=== PATIENT | male | born 1950 | race Caucasian/White ===

== ENCOUNTER 2022-10-11 09:16 | Outpatient (OUT) | payer MEDICARE, OTHER, SELFPAY ==
[2022-10-11 09:45] LABS: Estimated Average Glucose 137 mg/dL; Glycohemoglobin A1C 6.4 % (4.5-6.2)
== END 2022-10-11 09:17 | disposition home or self-care (01) ==
LOC: LAB 09:20
PROVIDERS: PCP Internal Medicine; Visit Provider Internal Medicine
DX: E11.65 Type 2 diabetes mellitus with hyperglycemia (principal)
CPT/HCPCS: 36415; 83036

== ENCOUNTER 2023-02-20 09:26 | Outpatient (OUT) | payer MEDICARE, OTHER, SELFPAY ==
[2023-02-20 09:55] LABS: Basophils Percent Auto 0.4 % (0.2-2.0); Eosinophils Absolute Auto 0.5 10^3/uL (0.0-0.7); Eosinophils Percent Auto 4.7 % (0.9-7.0); Hematocrit 45.4 % (42.0-54.0); Hemoglobin 15.4 g/dL (14.0-18.0); Immature Granulocytes Abs Auto 0.03 10^3/uL (0.00-0.03); Immature Granulocytes Pct Auto 0.3 % (0.0-0.5); Lymphocytes Absolute Auto 2.1 10^3/uL (1.2-3.8); Lymphocytes Percent Auto 21.6 % (20.5-60.0); Mean Corpuscular HGB Conc 33.9 g/dL (29.9-35.2); Mean Corpuscular Volume 88.3 fL (80.0-94.0); Mean Platelet Volume 9.4 fL (9.5-13.5); Monocytes Absolute Auto 0.6 10^3/uL (0.3-0.8); Monocytes Percent Auto 6.3 % (1.7-12.0); Neutrophils Absolute Auto 6.4 10^3/uL (1.4-6.5); Neutrophils Percent Auto 66.7 % (43.0-75.0); Platelet Count 295 10^3/uL (150-450); Red Blood Count 5.14 10^6/uL (4.70-6.10); Red Cell Distribution Width 11.8 % (11.0-15.0); White Blood Count 9.7 10^3/uL (4.0-11.0)
[2023-02-20 10:32] LABS: Anion Gap 11.7; BUN Creatinine Ratio 8.7; Calcium 8.8 mg/dL (8.5-10.1); Carbon Dioxide 29.4 mmol/L (21.0-32.0); Chloride 100 mmol/L (98-107); Chol HDL Ratio 5.5; Cholesterol 203 mg/dL (<=200); Estimated GFR (African America >60 (>=60); Estimated GFR (Non-African Ame >60 (>=60); Glucose 162 mg/dL (74-106); HDL Cholesterol 37 mg/dL (40-60); Potassium 4.1 mmol/L (3.5-5.1); Sodium 137 mmol/L (136-145); Triglycerides 258 mg/dL (<=150); VLDL CHOLESTEROL 51.6 mg/dL
[2023-02-20 10:40] LABS: Prostate Specific Antigen Scrn 3.22 ng/mL (<=4.00)
[2023-02-20 10:46] LABS: Microalbumin Urine Random 1.5 mg/dL (<=30.0)
[2023-02-20 11:43] LABS: Estimated Average Glucose 126 mg/dL
== END 2023-02-20 09:27 | disposition home or self-care (01) ==
LOC: LAB 09:28
PROVIDERS: PCP Internal Medicine; Visit Provider Internal Medicine
DX: E11.65 Type 2 diabetes mellitus with hyperglycemia (principal); I10 Essential (primary) hypertension; C67.9 Malignant neoplasm of bladder, unspecified; Z12.5 Encounter for screening for malignant neoplasm of prostate; E78.00 Pure hypercholesterolemia, unspecified
CPT/HCPCS: 36415; 80048; 80061; 82043; 83036; 85025; G0103

== ENCOUNTER 2023-04-11 09:43 | Outpatient (OUT) | payer MEDICARE, OTHER, SELFPAY ==
--- OUTSIDE RECORDS SUMMARY | 2023-04-11 09:48 | XMS_ITS | CCD ---
Author Name Unknown Address [address] [place] [address] Organization [facility] Care Team Providers Care Custody Assistant Name Role Phone MACI, DR RANDALL Neriitting Unavailable MOLINA, DR CAPUTO Attending Unavailable BALL, DR ROCHE Primary Care Unavailable MACI, DR CAPUTO Consulting Unavailable CÉSAR, ALEKSANDAR Consulting Unavailable SANDRA, SHANA GLOVER Consulting Unavaila ble BALL, DR ROCHE Admitting Unavailable BALL, DR ROCHE Attending Unavailable BALL, DR ROCHE Primary Care Unavailable BALL, DR ROCHE Consulting Unavailable BALL, DR ROCHE Admitting Unavailable BALL, DR ROCHE Attending Unavailable BALL, DR ROCHE Primary Care Unavailable BALL, DR ROCHE Consulting Unavailable BALL, DR ROCHE Admitting Unavailable BALL, DR ROCHE Attending Unavailable BALL, DR ROCHE Primary Care Unavailable BALL, DR ROCHE Consulting Unavailable BALL, DR ROCHE Admitting Unavailable BALL, DR ROCHE Attending Unavailable BALL, DR ROCHE Primary Care Unavailable BALL, DR ROCHE Consulting Unavailable BALL, DR ROCHE Primary Care Unavailable ADILSON, ELODIA Admitting Unavailable ADILSON, ELODIA Attending Unavailable ADILSON, ELODIA Consulting Unavailable IKE, HALLEY Consulting Unavailable MOLINA, DR CAPUTO Admitting Unavailable MOLINA, DR CAPUTO Attending Unavailable BALL, DR ROCHE Primary Care Unavailable MOLINA, DR CAPUTO Consulting Unavailable TOHMAS, ANGELITA Consulting Unavailable NEFCY, DANAY Consulting Unavailable MOLINA, DR CAPUTO Admitting Unavailable MOLINA, DR CAPUTO Attending Unavailable BALL, DR ROCHE Primary Care Unavailable BALL, DR ROCHE Referring Unavailable MOLINA, DR CAPUTO Consulting Unavailable Lalit, Antoni Unavailable Randall MOLINA Attending Unavailable MOLINA, Randall Garcia Referring Unavailable MOLINA, Randall Garcia Admitting Unavailable MOLINA, Randall Garcia Attending Unavailable MOLINA, Randall Garcia Attending Unavailable MOLINA, Randall Garcia Attending Unavailable MOLNIA, Randall Garcia Attending Unavailable MOLINA, Randall Garcia Attending Unavailable Allergies Allergy Classification Reported Allergen(s) Allergy Type Date of Onset Reaction(s) Facility (1 source) No Known Medication Allergies; Translations: [No Known Medication Allergies] Propensity to adverse reactions (disorder) [facility] Repository (1 source) patient allergy list reviewed by nurse or physicia Propensity to adverse reactions 8 Comment:Done Neurologix Other Medications Current Medications Medication Drug Class(es) Dates Sig (Normalized) Sig (Original) atorvastatin 10 mg oral tablet (1 source) HMG-CoA Reductase Inhibitor Start: 02-22-2023 take 1 tablet by mouth once daily in the evening Atorvastatin Calcium 10 MG 1 tablet Orally Once a day, in evening for 90 days Feb, Active lisinopril 20 mg oral tablet (5 sources) Angiotensin Converting Enzyme Inhibitor take 1 tablet by mouth once daily Lisinopril 20 MG TAKE 1 TABLET BY MOUTH DAILY Active metFORMIN hydrochloride 1000 mg oral tablet (5 sources) Biguanide take 1 tablet by mouth once daily metFORMIN HCl 1000 MG TAKE 1 TABLET BY MOUTH DAILY Active One Touch Glucometer (4 sources) One Touch Glucom eter Use to test home BS transcutaneous Use to test home BS qd for 365 days Active Problems Active Problems Problem Classification Problem Date Documented Date Episodic/Chronic Biliary tract disease (8 sources) Cholelithiasis without obstruction; Translations: [Calculus of gallbladder without cholecystitis without obstruction] Onset: 02-15-2022 Episodic Cancer of bladder (9 sources) Malignant neoplasm of bladder, unspecified; 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] Onset: 01-11-2018 Chronic Chronic kidney disease (2 sources) Chronic kidney disease; Translations: [Chronic kidney disease, stage 3 unspecified] Onset: 02-07-2018 Chronic obstructive pulmonary disease and bronchiectasis (1 source) Mucopurulent chronic bronchitis; Translations: [Mucopurulent chronic bronchitis] Chronic Diabetes mellitus with complications (13 sources) Type 2 diabetes mellitus with hyperglycemia; Translations: [Type 2 diabetes mellitus] Onset: 04-06-2016 Chronic Diabetes mellitus without complication (2 sources) Type 2 diabetes mellitus without complications; Translations: [TYPE 2 DM WITHOUT COMPLICATIONS] Onset: 10-14-2013 Chronic Diseases of mouth; excluding dental (1 source) Hypertrophy of tongue papillae; Translations: [Hypertrophy of tongue papillae] Episodic Disorders of lipid metabolism (7 sources) Hypercholesterolemia; Translations: [Pure hypercholesterolemia, unspecified] Onset: 12-26-2014 Chronic Essential hypertension (11 sources) Essential (primary) hypertension; Translations: [Essential hypertension] Onset: 11-19-2021 Chronic Hyperplasia of prostate (3 sources) Benign prostatic hyperplasia with lower urinary tract symptoms; Translations: [Benign prostatic hyperplasia without lower urinary tract symptoms] Onset: 11-03-2021 Chronic Melanomas of skin (2 sources) Malignant melanoma of skin of face; Translations: [Malignant melanoma of cheek (external)] Onset: 03-13-2011 Chronic Nutritional deficiencies (2 sources) Vitamin D deficiency, unspecified; Translations: [VITAMIN D DEFICIENCY UNSPECIFIED] Onset: 03-17-2021 Chronic Osteoarthritis (7 sources) Osteoarthritis of right foot; Translations: [Primary osteoarthritis, right ankle and foot] Chronic Other aftercare (2 sources) Other custodial (current) drug therapy; Translations: [OTH PENITENTIARY CURRENT DRUG THERAPY] Onset: 11-17-2021 Episodic Other and unspecified benign neoplasm (5 sources) Adenomatous polyp of colon ; Translations: [Benign neoplasm of descending colon] Episodic Other and unspecified benign neoplasm (1 source) Personal history of colonic polyps; Translations: [Personal history of colonic polyps] Episodic Other and unspecified benign neoplasm (1 source) Benign neoplasm of colon; Translations: [Benign neoplasm of colon] Episodic Other injuries and conditions due to external causes (1 source) History of falling; Translations: [History of falling] Episodic Other non-epithelial cancer of skin (3 sources) Personal history of other malignant neoplasm of skin; Translations: [Basal cell carcinoma of skin, unspecified] Onset: 11-19-2021 Episodic Other nutritional; endocrine; and metabolic disorders (1 source) Obesity, unspecified; Translations: [Obesity, unspecified] Chronic Other screening for suspected conditions (not mental disorders or infectious disease) (4 sources) Encounter for screening for malignant neoplasm of prostate; Translations: [Elevated prostate specific antigen [PSA]] Onset: 06-11-2018 Episodic Other upper respiratory infections (1 source) Chronic maxillary sinusitis; Translations: [Chronic maxillary sinusitis] Onset: 04-06-2016 Chronic Residual codes; unclassified (1 source) Family history of malignant neoplasm of digestive organs; Translations: [Family history of malignant neoplasm of digestive organs] Episodic Screening and history of mental health and substance abuse codes (1 source) Encounter for screening for depression; Translations: [Encounter for screening for depression] Episodic Spondylosis; intervertebral disc disorders; other back problems (1 source) Spondylosis without myelopathy or radiculopathy, cervical region; Translations: [Spondylosis without myelopathy or radiculopathy, cervical region] Onset: 03-19-2014 Chronic Substance-related disorders (11 sources) Nicotine dependence, cigarettes, uncomplicated; Translations: [Tobacco dependence in remission] Onset: 06-16-2015 Chronic Unclassified (1 source) CONTACT W/AND (SUSP) EXPOS COVID-19; Translations: [CONTACT W/AND (SUSP) EXPOS COVID-19] Onset: 11-09-2021 Unclassified (1 source) Encounter for preprocedural respiratory examination; Translations: [Encounter for preprocedural respiratory examination] Onset: 11-08-2013 Unclassified (1 source) Low back pain, unspecified; Translations: [Low back pain, unspecified] Onset: 05-28-2018 Urinary tract infections (1 source) Other chronic cystitis without hematuria; Translations: [OTH CHRONIC CYSTITIS W/O HEMATURIA] Onset: 11-19-2021 Chronic Past or Other Problems Problem Classification Problem Date Documented Da te Episodic/Chronic Abdominal pain (4 sources) Right lower quadrant pain; Translations: [RIGHT LOWER QUADRANT PAIN] Onset: 11-13-2021 Episodic Cancer of bladder (1 source) Personal history of malignant neoplasm of bladder; Translations: [PERSONAL HX MALIG NEOPLASM BLADDER] Onset: 11-19-2021 Episodic Diabetes mellitus with complications (2 sources) Diabetes mellitus with complications; Translations: [Diabetes mellitus without mention of complication, type II or unspecified type, not stated as uncontrolled] Onset: 11-08-2013 Diabetes mellitus without complication (1 source) Hyperglycemia, unspecified; Translations: [Hyperglycemia, unspecified] Onset: 10-14-2013 Episodic Essential hypertension (1 source) Essential hypertension; Translations: [Essential hypertension, benign] Onset: 11-08-2013 Genitourinary symptoms and ill-defined conditions (1 source) Hematuria, unspecified; Translations: [HEMATURIA UNSPECIFIED] Onset: 11-03-2021 Episodic Malaise and fatigue (1 source) Other malaise and fatigue; Translations: [Other malaise and fatigue] Onset: 10-14-2013 Episodic Neoplasms of unspecified nature or uncertain behavior (4 sources) Neoplasm of unspecified behavior of bladder; Translations: [NEOPLASM UNS BEHAVIOR OF BLADDER] Onset: 11-11-2021 Episodic Nonspecific chest pain (2 sources) Other chest pain; Translations: [Chest pain, unspecified] Resolved: 11-16-2020 Episodic Open wounds of extremities (2 sources) Laceration with foreign body of left index finger with damage to nail, subsequent encounter; Translations: [Laceration with foreign body of left index finger with damage to nail, initial encounter] Onset: 06-07-2017 Episodic Other aftercare (1 source) [facility] (current) use of oral hypoglycemic drugs; Translations: [PENITENTIARY USE ORAL HYPOGLYCEMIC DX] Onset: 11-17-2021 Episodic Other and unspecified benign neoplasm (3 sources) Benign neoplasm of descending colon; Translations: [Benign neoplasm of descending colon] Resolved: 09-30-2021 Episodic Other connective tissue disease (1 source) Neuralgia and neuritis, unspecified; Translations: [Neuralgia and neuritis, unspecified] Resolved: 07-31-2019 Episodic Other diseases of kidney and ureters (1 source) Crossing vessel and stricture of ureter without hydronephrosis; Translations: [CROSSING VES STRICT URETER W/O HN] Onset: 11-19-2021 Episodic Other ear and sense organ disorders (2 sources) Impacted cerumen, bilateral; Translations: [Impacted cerumen, bilateral] Resolved: 11-16-2020 Episodic Other ear and sense organ disorders (1 source) Acute reactive otitis externa, bilateral; Translations: [Acute reactive otitis externa, bilateral] Resolved: 09-09-2019 Episodic Other ear and sense organ disorders (1 source) Impacted cerumen; Translations: [Impacted cerumen] Onset: 04-06-2016 Episodic Other infections; including parasitic (1 source) Personal history of other infectious and parasitic diseases; Translations: [PERSONAL HX OTH INF AND PARASITIC DZ] Onset: 11-03-2021 Episodic Other lower respiratory disease (1 source) Cough; Translations: [Cough] Onset: 10-14-2015 Episodic Other lower respiratory disease (1 source) Shortness of breath; Translations: [Shortness of breath] Resolved: 09-09-2019 Episodic Other nervous system disorders (1 source) Paresthesia of skin; Translations: [Paresthesia of skin] Onset: 03-19-2014 Episodic Other nutritional; endocrine; and metabolic disorders (1 source) Overweight; Translations: [Overweight] Resolved: 02-15-2022 Episodic Residual codes; unclassified (1 source) Tobacco use; Translations: [Tobacco use] Onset: 06-16-2015 Episodic Spondylosis; intervertebral disc disorders; other back problems (1 source) Radiculopathy, cervical region; Translations: [Radiculopathy, cervical region] Onset: 04-11-2014 Episodic Sprains and strains (2 sources) Strain of muscle, fascia and tendon of lower back, subsequent encounter; Translations: [Strain of muscle, fascia and tendon of lower back, initial encounter] Onset: 05-28-2018 Episodic Unclassified (1 source) Osteoarthrosis, unspecified whether generalized or localized, lower leg; Translations: [Osteoarthrosis, unspecified whether generalized or localized, lower leg] Onset: 11-08-2013 Unclassified (1 source) Bacterial infection, unspecified, in conditions classified elsewhere and of unspecified site; Translations: [Bacterial infection, unspecified, in conditions classified elsewhere and of unspecified site] Onset: 04-06-2016 Unclassified (1 source) Melanoma of skin, site unspecified; Translations: [Melanoma of skin, site unspecified] Unclassified (1 source) Nondependent tobacco use disorder; Translations: [Nondependent tobacco use disorder] Onset: 11-08-2013 Unclassified (1 source) Hypertrophy (benign) of prostate without urinary obstruction and other lower urinary tract symptoms [LUTS]; Translations: [Hypertrophy (benign) of prostate without urinary obstruction and other lower urinary tract symptoms [LUTS]] Unclassified (1 source) Malignant neoplasm of bladder, part unspecified; Translations: [Malignant neoplasm of bladder, part unspecified] Onset: 02-07-2018 Unclassified (1 source) Other specified pre-operative examination; Translations: [Other specified pre-operative examination] Onset: 11-08-2013 Unclassified (1 source) Special screening for malignant neoplasm of prostate; Translations: [Special screening for malignant neoplasm of prostate] Onset: 10-14-2013 Unclassified (1 source) Body mass index 28.0-28.9, adult; Translations: [Body mass index 28.0-28.9, adult] Onset: 06-16-2015 Unclassified (1 source) Body mass index 29.0-29.9, adult; Translations: [Body mass index 29.0-29.9, adult] Onset: 06-16-2015 Unclassified (1 source) Long-term (current) use of other medications; Translations: [Long-term (current) use of other medications] Onset: 01-17-2017 Results Test Name Value Interpretation Reference Range Facility Reminderson 10-18-2022 Reminders - From: Sammie Padilla To: [facility] - Recalls Molina; Cc: Sammie Padilla; Sent: 03/16/2022 08:25:43 EST Show up: 04/13/2022 08:25:00 EST Subject: Cysto/FISH/cytol Due Date/Time: 05/30/2022 08:25:00 EDT Reminder/Recall Patient is due in May 2022 for 6 month cysto/fish/cytol (bt ck) Patient scheduled for 05/11/22. He will be due in Nov 2022 for 6 month. Patient due in May 2023. New thread Normal [facility] UroVysion Fish and Urine Cyt o ([facility])on 05-25-2022 UVFISH & UC Diagnosis Info Invalid Interpretation Code [facility] Comment on above: Result Comment: A:Ur ine,Urine:Voided Diagnosis Summary - No evidence of high grade urothelial carcinoma identified. Adequate cellularity for evaluation. Diagnosis Summary - The UroVysion FISH study detected normal copy numbers for chromosomes 3, 7, 17, and 9p21. 179 cells were analyzed in this evaluation. No evidence of aneuploidy for chromosomes 3, 7, or 17 or deletion of the 9p21 locus was found in cells present in this specimen. This test does not rule out the possibility of a low grade non-invasive papillary urothelial carcinoma. These findings should be correlated with cytology and cystoscopy results.* Microscopic Notes - Microscopic Notes - Abnormal cells 9p21 deletions: Abnormal cells aneploid events: Total cells analyzed: 179 Hematuria: Gross Description Site ID:A color Yellow fixative Alcohol Received 100 mls of clear yellow fluid with the patient's name and, Urine on the vial. Electronically signed by : on: 05/25/2022 17:56:29 Performed By: #### 1 [id number] ####[facility] [address] [place] [address] Reminderson 05-19-2022 Reminders - From: Sammie Padilla To: EU - Recalls Molina; Cc: Sammie Padilla; Sent: 05/19/2022 10:10:20 EST Show up: 04/13/2023 10:10:00 EST Subject: Cysto/fish/cytol, 1 yr Due Date/Time: 05/01/2023 10:10:00 EST Reminder/Recall Pt is due in May 2023 for 1 year cysto/fish/cytol (bt ck), PSA/AGUILA Normal [facility] Consent for Procedure/Surger yon 05-18-2022 Consent for Procedure/Surgery [id number] D:127 Normal [facility] Patient Educationon 05-19-19 23 Patient Education Oncology Cancer Screening for Men A cancer screening is a test or exam that checks for cancer. Your health care provider will recommend specific cancer screenings based on your age, personal history, and family history of cancer. Work with your health care provider to create a cancer screening schedule that protects your health. Why is cancer screening done? Cancer screening is done to look for cancer in the very early stages, before it spreads and becomes harder to treat and before you would start to notice symptoms. Finding cancer early improves the chances of successful treatment. It may save your life. Who should be screened for cancer? All men should be screened for colorectal cancer and skin cancer. Your health care provider may recommend screenings for other types of cancer if: ? You had cancer before. ? You have a family member with cancer. ? You have abnormal genes that could increase the risk of cancer. ? You have risk factors for certain cancers, such as smoking. When you should be screened for cancer depends on: ? Your age. ? Your medical history and your family's medical history. ? Certain lifestyle factors, such as smoking. ? Environmental exposure, such as to asbestos. What are some common cancer screenings? Lung cancer Lung cancer screening is done with a CT scan that looks for abnormal cells in the lungs. Discuss lung cancer screening with your health care provider if you are 55?74 years old and if any of the following apply to you: ? You currently smoke. ? You used to smoke heavily. ? You have a smoking history of 1 pack a day for 30 years or 2 packs a day for 15 years. ? You have quit smoking within the past 15 years. If you smoke heavily or if you used to smoke, you may need to be screened every year. Prostate cancer Prostate cancer screening is done with blood tests and an exam in which a health care provider uses a gloved finger to check prostate size (digital rectal exam). You may need to be screened for prostate cancer if: ? You have risk factors of prostate cancer, such as being or having a close family member with prostate cancer. ? You have inherited gene changes or a genetic condition, including BRCA1 or BRCA2 gene mutations or Jones syndrome. ? You have symptoms of prostate cancer, such as problems urinating or erectile dysfunction. Prostate cancer screening for men with average risk may start at age 50. Men with risk factors may need to be screened earlier at age 40?45. Once you have been screened for prostate cancer, future screening may be recommended based on the results of your blood tests. Colorectal cancer All adults should have screening for colorectal cancer starting at age 50 and continuing until age 75. Your health care provider may recommend screening at age 45. You will have tests every 1?10 years, depending on your results and the type of screening test. If you have a family history of colon or rectal cancer or other risk factors, you may need to start having screenings earlier. Talk with your health care provider about which screening test is right for you and how often you should be screened. Colorectal cancer screening looks for cancer or for growths called polyps that often form before cancer starts. Tests to look for cancer or polyps include: ? Colonoscopy or flexible sigmoidoscopy. For these procedures, a flexible tube with a small camera is inserted into the rectum. ? CT colonography. This test uses X-rays and a contrast dye to check the colon for polyps. If a polyp is found, you may need to have a colonoscopy so the polyp can be located and removed. Tests to look for cancer in the stool (feces) include: ? Guaiac-based fecal occult blood test (FOBT). This test detects blood in stool. It can be done at home with a kit. ? Fecal immunochemical test (FIT). This test detects blood in stool. For this test, you will need to collect stool samples at home. ? Stool DNA test. This test looks for blood in stool and any changes in DNA that can lead to colon cancer. For this test, you will need to collect a stool sample at home and send it to a lab. Skin cancer Skin cancer screening is done by checking the skin for unusual moles or spots and any changes in existing moles. Your health care provider should check your skin for signs of skin cancer at every physical exam. You should check your skin every month and tell your health care provider right away if anything looks unusual. Men with a akpxjy-ttaw-fpfgbc risk for skin cancer may want to see a operations staff specialist security (is analyst) for an annual body check. Where to find more information ? [employer] [place]: https://www.cancer.gov/ about-cancer/screening ? Centers for Disease Control and Prevention: https://www.cdc.gov/can cer/dcpc/prevention/scr eening.htm ? [employer]: https://www.cancer.org/ latest-news/4-cancer-sc bexnmoc-vkyzh-tdj-men.h tml Contact a health care (more content not included)... Normal [facility] UroVysion Fish and Urine Cyt o ( Labs)on 05-18-2022 [facility] Method of Extraction Voided Normal [facility] Comment on above: Performed By: #### 1 [id number] ####[facility] [address] [place] [address] [facility] Number of Jars 1 Invalid Interpretation Code [facility] Comment on above: Performed By: #### 1 [id number] ####[facility] [address] [place] [address] [facility] Specimen Urine Normal [facility] Comment on above: Performed By: #### 1 [id number] ####[facility] [address] [place] [address] [facility] Type of Service Technical Only Normal [facility] Comment on above: Performed By: #### 1 [id number] ####[facility] [address] [place] [address] Urology Office/Clinic Noteon 05-18-2022 Urology Office/Clinic Note Chief Complaint Cysto HPI Staff Cysto ABX not taken History of Present Illness Tests reviewed: OV note. I have reviewed the previous health record information and history for this patient from Dr. Molina. I have reviewed and verified the staff HPI to be accurate for this encounter. There have been no associated fever, chills, flank pain, or blood in the urine. Denies any urinary infections since last encounter. Review of Systems PHQ Score Initial Depression Screen Score: 0 ROS - Provider Constitutional: denies weight loss, denies hot flashes. Eyes: denies eye problems. Gastrointestinal: denies nausea, denies vomiting. Cardiovascular: denies chest pain or angina. Integumentary: no dryness Musculoskeletal: denies musculoskeletal symptoms. ENMT: denies otolaryngeal symptoms. Respiratory: no shortness of breath. Heme/Lymph: denies easy bleeding tendency, denies easy bruising tendency. Psychiatric: no confusion, no anxiety. Genitourinary: See HPI. Physical Exam Vitals & Measurements HR: 73(Peripheral) BP: 146/74 HT: 69 in HT: 175 cm WT: 88.0 kg WT: 193.6 lb BMI: 28.73 General Appearance: alert, no distress, well nourished, well developed male. Genitourinary: normal scrotum, normal testes, normal urethra, normal epididymis, normal vas deferens/spermatic cord. Flank Pain: none. Bladder: nonpalpable. Procedure Operative Information Anesthesia Type: Local Procedure: Local Cystoscopy Complications: None Surgical risks, benefits, details of the procedure have been explained to the patient. Full informed consent has been obtained. Intraoperative Information Prepped: Patient is brought back to the endoscopy suite. Patient is placed in supine position. Patient prepped in the usual fashion with Betadine solution. 2% Xylocaine Jelly is placed per Urethra. After waiting several minutes, the Cystoscope is introduced. The Urethra is: Normal The Prostatic Urethra is: _Open. The Bladder: _No tumors, stones, lesion. Trabeculated: Mild (1) The Ureteral orifices: Show efflux of clear urine. Specimens Removed: Voided specimen sent for FISH and Cytology test Removal: Cystoscope is removed. The patient tolerated it well. Postoperative Information Patient is discharged home with antibiotic coverage. Follow up arranged. Assessment/Plan 1. Hx of bladder cancer (Z85.51: Personal history of malignant neoplasm of bladder) S/p TURBT 11/11/21 & Rt. stent placement. TURBT 01/2018. Patient was originally dx with low grade noninvasive cancer in 2017. First recurrence was in 11/2019. S/p Evolve Laser of bladder tumor. Cysto done 10/27/21 showed adjacent to the right UO is a 1 cm papillary TCC appearing lesion. Lateral to that is a 0.5 cm papillary TCC appearing lesions. Path showed chronic cystitis glandularis, negative for recurrence. Pt went to the ER on 11/13/[address] scan shows stent in place and mild right hydro, perinephric edema. Pt had IO cysto to check for bladder tumor recurrence without complications today. Pt took prophylactic abx prior to procedure. Will send voided specimen for FISH/cytol and call pt if positive. Cysto today was negative for recurrence. Follow up 1 year cysto/FISH/cytol/bt ck or sooner if needed. Pt understands and agrees with plan. 2. Enlarged prostate with urinary obstruction (N40.1: Benign prostatic hyperplasia with lower urinary tract symptoms) S/p TURP 02/2018. Most recent PSA 1.77 done 11/01/21, previously 1.82 done in 2019. Follow-up With When Contact Information MACI BLAKE, Randall Garcia, [facility] [address], [place] [address]- Additional Instructions: 1 year cysto/FISH/cytol/bt ck Patient Education Cancer Screening for Men I, Irma Vance, personally scribed for Dr. Molina on 05/18/2022 08:15:50. . Documentation recorded by the scribe, Irma Vance, accurately reflects the services(s) I performed and decisions made by me. Authenticated by Dr. Molina on 05/18/2022 08:16:46. Problem List/Past Medical History Ongoing Bladder cancer BMI 28.0-28.9,adult Diabetes Enlarged prostate with urinary obstruction History of skin cancer History of urinary retention Hx of bladder cancer Hx of hepatitis Hypertension Smoker Historical No qualifying data Procedure/Surgical History Cystoscopy (05/18/2022), Cystoscopy (10/27/2021), Cystoscopy (07/28/2021), Cystoscopy (04/21/2021), Cystoscopy (01/20/2021), Cystoscopy (10/14/2020), Cystoscopy (06/17/2020), Cystoscopy (03/03/2020), Ablation of neoplasm of urinary bladder using laser (11/19/2019), Cystoscope (11/05/2019), Cystoscopy (07/30/2019), Cystoscope (02/20/2019), Cystoscopy (11/27/2018), Cystoscopy (08/21/2018), TURP - Transurethral resection of prostate (02/15/2018), Cystoscopy and transurethral resection of bladder tumour (01/25/2018), Urodynamics (01/16/2018), Colonoscopy, Knee replacement. Medications lisinopril (more content not included)... Normal [facility] Comment on above: Result Comment: Elec tronically Signed By: Randall MOLINA MD R\.br\Date and Time Signed: 05/18/22 08:16 EST\.br\Electronically Co-Signed By: Irma Vance\.br\Date and Time Co-Signed: 05/18/22 08:16 EST GLYCOHEMOGLOBIN A1Con 2021 ADA RECOMMENDATION SEE BELOW Normal [facility] Comment on above: Result Comment: ADA RECOMMENDED LIMIT 4.0 - 6.0 ADA THERAPEUTIC TARGET < 7.0 ACTION SUGGESTED > 7.0 Performed By: #### A 1C #### [facility] [address] [address] [address] Gil Smith Glucose [Mass/Vol] 137 mg/dL Normal [facility] Comment on above: Performed By: #### A 1C #### [facility] [address] [address] [address] Gil Smith HbA1c (Bld) [Mass fraction] 6.4 % Critically high 4.5-6.2 [facility] Comment on above: Performed By: #### A 1C #### [facility] [address] [address] [address] Gil Smith MICROALBUMIN, RAND URon - mALB <1.3 Normal <=30.[address] [facility] Comment on above: Performed By: #### B #### [facility] [address] [place] [address] Dr. Gil Smith Coding Summary.on 11-24-2021 Coding Summary. [id number] Gh0 bWw+PGhlYWQ+HN8DSQDxV35 ubJEhqQ7CK9bKQX2FDXIMZA CCIH0XRM4dhRK5XImvR8Ads iAv KjmdiSDpOF68QTj5SLQ2nBn bLCidjN9dwPNcD6x8HdEqSH 75hA87ISnrGQIhQqI8KkIxe jsgbWFy C1jxWnPpcLCjLov+PHRhYmx lIHdpZHRoPScxMDAlJyBzdH cmCM1cMd0tXHYtWCWqiKvke HNlOiBj f3tbSOLaTAhpOQ3fmCxzG8H wsLW3ARFjp2t6Pe36zXH+PH LvSGD0sGmfYKjbr936RkDwc 0spETW5 hABhVViwFCR4I55ig9M8ROU oTOMhQZR3bPQ6yA4jsYeuwv ovE2ZzlDXaLdC9GEA2kLSwb E7oqQqo pzrfhV4vLyq+C64DHO5GWZQ IQQ4ZXnk8B8GzWkpxtXG+PC 66EPIgCV43vQPyfGKrg2lpo Sl0XuCm BVUcZNM0qTllLJpfk9QeLKM iG40elAMnk0Y3FOGjgHguxE VzUmEegWB6kW3fXZdemdkjj 2hvdzsn Omqnm0rkpd38dB41V83zYKn nWDBsBRF7OQNhYZBvyRpdgq 6veU7cBi0+CZjub8svu1uae Zo4SdAi LKEkueHrjAcuFSD3o2SkQg1 2Z5TfeVmho5KmZfo8ec40dM Ndf2Y7rKU3FUuyRCEugJ5sL WxlZnQ6 MDZxYcLhdS34xTYiZRglDs1 laSyupEkfXZ8lGHDekhabLR CuvS8zEYVucWCbnDbtXM2lS TBpbjtm s685HkOcAQO8OVVzxFNaK3Y csC0rLmEnEAOwJOShN9JbhM HxINcuZ282WXnkTzY3UPXae mXkG9Et EIPksLtdVuK9d1I6Nt6Ad6Z qrpbtEXV3NWifATR4ZwA4Iw CiIqC2I7TlIoe0YXNrdFloP W2nT0Kz NJTqmgspghixePT6UFRhZZN hsK13cTQsXVcxEh1te6B1e7 96CERlMMThfS66Pi2etIviP TBwdCBU aM0ecxrqg6luflrzAjBiMNT yLOw5JXp1GYGsgCenGaSoOS H1EeJ3NFE8rOEtbE1gtOwkr keqmT3l Oyc+G39ilU9sIYA2QQK9jsb cWFTjjpCrAV79QU07X2VaYv wvdGFibGU+PGRpdiBzdHlsZ E1nNsMk v5cnm4JmBJpbR9YiCWNpDEi xFoe5ZRMpZEL7pLZ9aP7xDN LsKMlzt4Q7eBL8Q7IzhyKfx p7at7oy SXKvCTrvD23uiCEui8A2FEQ taKO8FHJqfSyjAkAnyW22Cc c+FIBosJvkl5PwXqokr0ggs 4brxWo3 JbMbIMJvhoMvhVjiDRP2p0A qXd24Z65mXPqoEIToSVAuLI YjOSAypLnmzt9jfT3jBp0+P GNvbCB3 wSI6xG7yUBZaQtG1CQujZ97 0ChMchNPgSnznc3bfb3okbI a5FpVySWKatyBoyLrmJWD5l 4DlGc98 I62fZYelTQDdSKQcBLIaDFK dyXzewg8erB1wYj7+PC9jb2 pabh63mU40qWZ+PPDkJAS1r WxlPSdw OOSthB3nRDusWvV9MKBxVqT klE42sTGbCKmhHu6yhEncaA zkWH0mKYWowmumj536OnLth 2xkIDEw tENeKWmoEFY5R29jj8R9INA kBXRgTMB3aTZ8pW4grHdkto ogbGVmdDsgdmVydGljYWwtY OckS172 IHRvcDsnPlBhdGllbnQgTmF dDZn3Q8OcWxx0VFMgkNcdHG 1ftCSoLOkdNm2kkSecmWpfZ F7wGPUp dcfwq133RkAub8vrTEFzhFT bCLfjRFN4T43xp1Y0BJTyPN IbUCC3xKD4aQ2xnJhenftsn GVmdDsg lkZfdIlbCAjiKMmjY851ILD bgFraNaZbqvEoCQMtrXP5IQ 82FJ37hRNkt7A5kWP0S6YgM GRpbmct iihbdAD8NVWvBFWchE96Vj2 mtJhtFw9fVQGfRXG2GGPemE DaK5SeyV6jVjSoLHYaVJAzG 3RleHQt SRwmQ966ENqlOrL7HRDysbO eF7EtTTZqoCuvUkF4k8G9Gi 7SV7G1ZI10IQ84zLLbg1V5w FB7M2Nc EOWgrewmszdvqTY2GIOwVJW ljC61It0vzLccOd3hVEAnXC W8VZAomSUgX7FofX1lExElO DAwMDAw X4FydHEqAYfgV790FVlnIbU 2WCBnmhVlN9KtRMBysJfpRv T0t9Q7Kh1CBCp3YP87GR95n TZbg6A8 mDE1O0FfDMGifsscdvxyvZR 6GMThJQRayU83Cf3bzKvaIz 9oIGYlMAW1IPEhqOFzZ7Qyi R4wZeVk ORBnRLXxK0OuaNQoJEecI81 7AUkkHqV5TDOdnrHjN5OzRW XxgPicNyB4g8Z4Zh5CDXFmL U55ETB2 lMB4IP48UJ18R7ZwEaakfSY ibGU+PHRhYmxlIHdpZHRoPS wlOGZhBdEsrWivQS3sMm1vT GVyLWNv tDdiyDHbMeVtj5giUPToMKf tWB0lxDmeI1BhnZV3WHJkd0 r4Kj20O16bR9XeiII+PGNvb OJ7mIQ7 iV2aRrGeUyF7ZMvhL187KlM hmQDwGfoum2pcb3nklSn2Be Y1GQUiswFvdItcUTT9o6SaF z73V76b IHdpZHRoPSIxNSUiIHZhbGl wvv1kvP1uHb3+NKXtlAZ0aM B1fC3fSjPvAkL2WJeuF451Z nRvcCIv Othxt2jte7gsoIg4NrEjOLG vtoKasFbyICH6p8ClUr74X1 MdoQccr7VyQic6zg45cDOjk 1G5sKL6 D9IgRJTwroapdDGfuUexTR3 iIXChucweZSDexW8dNEKuH6 q5BuCtDyH7ZHdvV6GndxU4W DEwcHQg QGwzMEB7J40mn9Y3DWTpHNL yOTB4cCN9gN5vwIsqrtnkmX VmdDsgdmVydGljYWwtYWxpZ 246IHRv cFhqNKLgjE1fEZHnpUKqbNa tNT8gGQEilwjfSgvDFqUXCv mrT5FGQSs4D2ZiXyc0BZBrf GfnXC4r jGZjXJgfQz9joYlwzQdzYL7 aIUOphdjgYLCxlZ2cJIWusL EnaOuqBM4sUEIuxwhtk109R iAxMHB0 LAUahNLqK0NvtK6aFuStGAT vVZBhM0KxzHBaNYsbS574IG zwRlE6RMZyvcIiD2ZmFPJrj WduOiB0 z2C1Ue1cDd1fFQ4dBBZcTQ2 1WG13vEZgh0O7uKS0X8TwBH TmyhrepsrjrBN8WPRwBQBwf B02jNZt KSjkWk4ah2R1b461OMVuLXS zxY65Aw2rgWdlYWCyiEWGbN 1ssocry7rykcwbGpQuWZDqU Wk0KLr8 KQJpxOcnAcIrJFZ4VvU3WNA 8tIZugD1dwRubtjdxzC2vEv c+RaGtDLKslsD9U7JtBgz9E CBzdHls PJ0wbSIoGZheAr3gmXujsNr vPC8aUHYtnlxzVAHijP0bMU UlkWDuuWgcFB3zVRWjyxnbj 250OiAx HDR1OIItxITqK5ZasO3mGtL aFGHmXWShQ5KzrPTrTVwiT6 35BJcsPzE8KFNgooMbW6CvL WFsaWdu RkC0b3X1Em0IQEetSH81FI3 5vEFyr3N5zSN0F3JbVNSpgk btlfhokZX7QYXtGTIhvL80c GFkZGlu Af9vc6L9q387OUPhUXBctE0 2Yd8oeYucTPTncKLCnK5kqg xuh0aeclmtKwMzSSRrJWq2T Pv7EZLu jNshGhLgFOA3ZbC2RUC3aEF lyF9tdVfiyjmzmH6zMla+T3 K6tHG8iRMoaUkmhQC+PC90c i01X5Ku MfgvUaa3CPSzWPC5aOT1aQ0 tYOFxUTqrv1M3rMO2C7Jedi Egkj6hx6qiOJGeWMuwK65ey YKsu3N0 UGRoiSJ9IDVawCzcNrYntZ9 3Oyc+KOSlcGdvn9YhXbumv6 tfp2lqkXz0EeLnFZPfsmPne WduPSJ0 e2YcEj34G01nRPiwDCEnCXP zIGMxWACrzZhgmo6nlJ1qVl 8+STKcqOQ4eRL0zP2bPwHaZ vJ7YRld A823VwDvgOOgYifgn1vro9i laZh7ZmVgVOZwnnNflPsaXY N4w3XnIw21L9OawMrij0IiT ra3jx57 cYLdo2R8xXO0T7IcWQKffrw atVAoqNonZC0qJZSwaqpoVD TduA8tQUFvM7b1DzUqXeH5Q UjaP1Yy ytM7EGHpaBDfUBJigPBPsU2 bezqgt3vopbtjTzAeQDUxPT g0WAo3YHFgbTgkFfOsSHS5J yD4CDZ9 tDEwkH9drGmxhjwscQ7tJkb +WBo6n8slfXJkQA9drDT7SO 17ZR48pODwz3J5eCY9L5RrP GRpbmct cfqkjSM6IHFgBEKjpY93Sq8 xyAkxYq5jJEQhIWL9UIAqiM CoY0VtvP6qJlQeGZXiFATjN 3RleHQt CBrgV956PMviXdI1LJWxspB uW5NwGQAnqTjbQwM0h8L3Gp 6TAF96NZ93ZC73rZHdo0Z9m CK8S9Bu TEIuwldoojrjvHG1CKSdUTP wwI59Du5atUhlFd6hVSOoEQ A9RWCcmPMsD5PdzY8eXoEtN DAwMDAw H7MbiTLoWIzuM947LTgfCnJ 5LPMbfiAuU6HgCCPuwIdmXn R0e2O8Aq6LVe07LS51GA09l GBgr1H3 gRI1I5CdMMXfzwbdbimreKW 6WJCkPXHfaB87Ca9hnJlpEz 3iERXkWVY2FWUifYBoS5Idd H3fFbFm UBKsXUQcI9GqzOPjXSiuP77 7TRzsKpU5FOBltkUgB5OsER AjsGxgGvE2l8K7Uu4TRNixi rs7X0Da PjwvdHI+FD08IYDtYS73zUI shFKcs8zqtHr3XpGsEDLvIS K5xIwnBBxzp4SyOJHuO39ks MXus4A4 IGNv (more content not included)... Normal [facility] Consent for Procedure/Surger yon 11-23-2021 Consent for Procedure/Surgery [id number] D:127 [facility] Consent for Treatmenton 11-11 Consent for Treatment [id number] D:127 [facility] IntraOperative Documentson 0 11-23-2021 IntraOperative Documents [id number] D:127 [facility] Main OR Intraoperative Recor don 11-23-2021 Main OR Intraoperative Record IntraOp Document Type FTURO Summary Primary Physician: Randall MOLINA MD Finalized Date/Time: 11/23/21 08:31:34 Pt. Name: ELI GARRISON/Sex: 1950 Male Med Rec #: [id number] Physician: Randall MOLINA MD Financial #: [id number] Pt. Type: O Room/Bed: / Admit/Disch: 11/23/21 07:22:34 - Institution: Case Times FTURO Entry 1 Patient Times In Room 11/23/21 08:16:00 Out Room 11/23/21 08:28:00 Procedure Times Start 11/23/21 08:25:00 Stop 11/23/21 08:26:00 Anesthesia Times Last Modified By: Sherlyn Coon RN 11/23/21 08:29:39 Case Attendance FTURO Entry 1 Entry 2 Entry 3 Case Attendee MACI BLAKE, Randall Coon RN, Sherlyn Cortes CST, Pia Grimes Role Performed Surgeon - Primary Co Chairman - Primary Scrub - Primary Time In 11/23/21 08:16:00 11/23/21 08:16:00 11/23/21 08:16:00 Time Out 11/23/21 08:28:00 11/23/21 08:28:00 11/23/21 08:28:00 Procedure CYSTOSCOPY LOCAL WITH CYSTOSCOPY LOCAL WITH CYSTOSCOPY LOCAL WITH STENT REMOVAL(Right) STENT REMOVAL(Right) STENT REMOVAL(Right) Comments PRECEPTING Last Modified By: Sherlyn Coon RN, RN, Sherlyn Remy RN 11/23/21 08:29:40 11/23/21 08:29:40 11/23/21 08:29:40 Entry 4 Case Attendee Radha Clemente Role Performed Scrub - Primary Time In 11/23/21 08:16:00 Time Out 11/23/21 08:28:00 Procedure CYSTOSCOPY LOCAL WITH STENT REMOVAL(Right) Comments ORIENTING Last Modified By: Sherlyn Coon RN 11/23/21 08:29:40 Surgical Procedures FTURO Entry 1 Procedure Description Procedure CYSTOSCOPY LOCAL WITH Modifiers Right STENT REMOVAL Surgeon Description CYSTOSCOPY LOCAL WITH RIGHT STENT REMOVAL Primary Procedure Yes Primary Surgeon Randall MOLINA MD Start 11/23/21 08:25:00 Stop 11/23/21 08:26:00 Anesthesia Type Local Surgical Service Urology Wound Class 2 - Clean-Contaminated Last Modified By: Sherlyn Coon RN 11/23/21 08:29:44 General Case Data FTURO Pre-Care Text: Classifies surgical wound, implements aseptic technique, initiates traffic control Entry 1 Case Information OR URO 1 FT Case Level None Wound Class 2 - Clean-Contaminated Specialty Urology Preop Diagnosis STATUS POST RIGHT STENT Postop Same As Preop Yes PLACEMENT RIGHT STENT REMOVAL Postop Diagnosis STATUS POST RIGHT STENT Outcomes Met? Yes PLACEMENT RIGHT STENT REMOVAL Last Modified By: Sherlyn Coon RN 11/23/21 08:25:29 Post-Care Text: The patient is free from signs and symptoms of infection EU IntraOp - FTURO Pre-Care Text: Implements protective measures prior to operative or invasive procedure, confirms identity before the operative or invasive procedure, verifies operative procedure, surgical site, and laterality Entry 1 EU Perioperative Protocols Procedure(s) CYSTOSCOPY LOCAL WITH Patient Identity Birthday, ID Band STENT REMOVAL(Right) Verified (select at Check, Patient least 2): Participation Consents / H and P HandP, Surgery/Procedure Operative Site Present Verified Consent Marking Verified Surgical Site Yes Laterality Verified Yes Verified Procedure Verified Yes Correct Patient Yes Position Verified Availability Equipment, Medication Time Out Randall MOLINA MD, Verified (If Participants Sherlyn Coon RN, Applicable) Sophia AUGUST, Chyna Mcclendon Jennifer E Time Out Complete 11/23/21 08:20:00 Allergies Reviewed? Yes Allergies Reviewed Self/Patient With Body Position Supine Prep Area PENIS Prep Agents Betadine Solution Skin. Condition Dry, Warm, Unable to Description UNABLE TO VISUALIZE DUE Visualize TO PATIENT PARTIALLY CLOTHED Additional None Specimens Collected Vitals - EU Blood Pressure 159/90 Pulse 58 bpm Respirations 16 br/min SPO2 EBL 0 IandO - EU Total Intake 0 mL Total Output 0 mL Outcomes Met? Yes Last Modified By: Sherlyn Coon RN 11/23/21 08:31:27 Post-Care Text: The patient is free from signs and symptoms of injury caused by extraneous objects Sign Out FTURO Entry 1 Before Patient Leaves OR Nurse verbally Yes Nurse verbally Yes confirms with the confirms with the team the name of team that the procedure(s) instrument, sponge, recorded and needle counts are correct (or N/A) Nurse verbally n/a Nurse verbally Yes confirms with the confirms with the team how the team whether there specimen is labeled are any equipment (including patient problems to be name), if applicable addressed Sign Out Complete 11/23/21 08:26:00 Last Modified By: Sherlyn Coon RN 11/23/21 08:26:21 Case Comments Finalized By: Sherlyn Coon RN Document Signatures Signed By: Sherlyn Coon RN 11/23/21 08:31 Normal [facility] Main OR Preoperative Recordo n 11-23-2021 Main OR Preoperative Record Holding Area Document Type FTURO Summary Primary Physician: Randall MOLINA MD Finalized Date/Time: 11/23/21 07:55:50 Pt. Name: ELI GARRISON /Sex: 1950 Male Med Rec #: [id number] Physician: Randall MOLINA MD Financial #: [id number] Pt. Type: O Room/Bed: / Admit/Disch: 11/23/21 07:22:34 - Institution: Case Times Holding FTURO Pre-Care Text: Verifies consent for planned procedure, identifies individual values and wishes concerning care, includes family members in perioperative teaching Secures patient's records' belongings, and valuables, maintains patient's dignity and privacy, and maintains patient confidentiality Entry 1 In Holding 11/23/21 07:47:00 Outcomes Met? Yes Last Modified By: MEDARDO Bland RN, Ruthann 11/23/21 07:53:58 Post-Care Text: The patient participates in decisions affecting his or her perioperative plan of care The patient's right to privacy is maintained Surgery Checklist FTURO Entry 1 Patient Birthday, ID Band Procedure History and Physical, Identification: Check, Patient Verification: Surgical Consent, With Participation Patient NPO after Midnight: n/a Personal Items clothes Comment: Limitations: none Complaints of Pain: No Skin Integrity Intact Vitals - EU Blood Pressure 159/90 Pulse 58 bpm Respirations 16 br/min SPO2 Additional None RN Reviewed Yes Specimens Collected Last Modified By: MEDARDO Bland RN, Ruthann 11/23/21 07:55:34 General Comments: temp 36.5 Finalized By: MEDARDO Bland RN, Ruthann Document Signatures Signed By: MEDARDO Bland RN, Ruthann 11/23/21 07:55 Normal [facility] Operative Reporton 2 Operative Report Patient: DASH GARRISON Age: 71 years Sex: Male : 1950 Associated Diagnoses: None Author: Randall MOLINA MD Procedure Operative Information Details: Date/ Time: 11/23/2021 08:29:00. Pre-Op Dx: Foreign Body in Bladder - T19.1XXA. Post-Op Dx: Same. Anesthesia Type: Local. Procedure: Local Cystoscopy with Stent Removal. Complications: None. Risks/Benefits/Informed Consent: Surgical risks, benefits, details of the procedure have been explained to the patient, Full informed consent has been obtained. Intraoperative Information Prepped: The patient was placed in supine position, The patient was prepped with the Betadine solution. Anesthesia: 2% Xylocaine Jelly per urethra. Procedure: Cystoscopy and Right Stent Removal, The flexible Cystoscope was passed in retrograde fashion into the bladder without difficulty, The bladder was viewed in entirety and found to be without tumors or stones, Mild inflammation was seen surrounding the orifice with the stent seen protruding from it, The stent was then grasped and removed in its entirety. Specimens Removed: None. Devices Implanted: None. Postoperative Information Discharge: The patient tolerated the procedure well and was subsequently discharged home. Normal [facility] Comment on above: Result Comment: Elec tronically Signed By: MACI BLAKE, Randall Garcia\.br\Date and Time Signed: 11/23/21 08:30 EDT Pathology Noteon 11-22-2021 Pathology Note [id number] D:127 Normal [facility] Ambulatory Visit Summaryon 0 11-19-2021 Ambulatory Visit Summary ELI GARRISON :1950 Visit Date:11/19/2021 Ambulatory Visit Instructions Your Diagnosis Bladder cancer Enlarged prostate with urinary obstruction Your Care Team Attending Physician - Randall MOLINA MD Primary Care Physician - ANTONI COHN DO This Is Your Medications List oxybutynin (oxybutynin 10 mg ER Tab) Contact prescribing physician if questions or concerns benazepril (benazepril 20 mg Tab) cephalexin (cephalexin 500 mg Cap) lisinopril (lisinopril 20 mg Tab) metformin (metformin 1000 mg Tab) [Image Removed: STOP]Stop taking these medications ciprofloxacin (Cipro 500 mg Tab) Procedures Performed Cystoscopy (10/27/2021), Cystoscopy (07/28/2021), Cystoscopy (04/21/2021), Cystoscopy (01/20/2021), Cystoscopy (10/14/2020), Cystoscopy (06/17/2020), Cystoscopy (03/03/2020), Ablation of neoplasm of urinary bladder using laser (11/19/2019), Cystoscope (11/05/2019), Cystoscopy (07/30/2019), Cystoscope (02/20/2019), Cystoscopy (11/27/2018), Cystoscopy (08/21/2018), TURP - Transurethral resection of prostate (02/15/2018), Cystoscopy and transurethral resection of bladder tumour (01/25/2018), Urodynamics (01/16/2018), Colonoscopy, Knee replacement. Discharge Vitals Heart Rate (Peripheral) 63 Respiratory Rate 16 Blood Pressure 139/64 Height 175.0 cm Height 175 cm Weight 88.0 kg Weight 88 kg BMI 28.73 What to do next You Need to Schedule the Following Appointments Follow Up with MACI BLAKE, AUBREY Renteria When: Where: [address] [place] [address]- Medications What How Much When Instructions Unchanged oxybutynin (oxybutynin 10 mg ER Tab) Unchanged benazepril (benazepril 20 mg Tab) 1 Tablets By Mouth Every day Contact prescribing physician if questions or concerns Unchanged cephalexin (cephalexin 500 mg Cap) Contact prescribing physician if questions or concerns Unchanged lisinopril (lisinopril 20 mg Tab) Contact prescribing physician if questions or concerns Unchanged metformin (metformin 1000 mg Tab) 1 Tablets By Mouth 2 times a day Contact prescribing physician if questions or concerns What How Much When Comments Stop Taking ciprofloxacin (Cipro 500 mg Tab) 1 Tablets By Mouth Every day Take 1 tablet the day before the procedure and 1 tablet after the procedure Allergies No Known Medication Allergies Problems Ongoing - Any problem that you are currently receiving treatment for. Bladder cancer BMI 28.0-28.9,adult Diabetes Enlarged prostate with urinary obstruction History of skin cancer History of urinary retention Hx of bladder cancer Hx of hepatitis Hypertension Education Materials Benign Prostatic Hyperplasia Benign prostatic hyperplasia (BPH) is an enlarged prostate gland that is caused by the normal aging process and not by cancer. The prostate is a walnut-sized gland that is involved in the production of semen. It is located in front of the rectum and below the bladder. The bladder stores urine and the urethra is the tube that carries the urine out of the body. The prostate may get bigger as a man gets older. An enlarged prostate can press on the urethra. This can make it harder to pass urine. The build-up of urine in the bladder can cause infection. Back pressure and infection may progress to bladder damage and kidney (renal) failure. What are the causes? This condition is part of a normal aging process. However, not all men develop problems from this condition. If the prostate enlarges away from the urethra, urine flow will not be blocked. If it enlarges toward the urethra and compresses it, there will be problems passing urine. What increases the risk? This condition is more likely to develop in men over the age of 50 years. What are the signs or symptoms? Symptoms of this condition include: ? Getting up often during the night to urinate. ? Needing to urinate frequently during the day. ? Difficulty starting urine flow. ? Decrease in size and strength of your urine stream. ? Leaking (dribbling) after urinating. ? Inability to pass urine. This needs immediate treatment. ? Inability to completely empty your bladder. ? Pain when you pass urine. This is more common if there is also an infection. ? Urinary tract infection (UTI). How is this diagnosed? This condition is diagnosed based on your medical history, a physical exam, and your symptoms. Tests will also be done, such as: ? A post-void bladder scan. This measures any amount of urine that may remain in your bladder after you finish urinating. ? A digital rectal exam. In a rectal exam, your health care provider checks your prostate by putting a lubricated, gloved finger into your rectum to feel the back of your prostate gland. This exam detects the size of your gland and any abnormal lumps or growths. ? An exam of your urine (urinalysis). ? A prostate specific antigen (PSA) (more content not included)... Normal [facility] Patient Educationon 11-20-19 Patient Education Urology Benign Prostatic Hyperplasia Benign prostatic hyperplasia (BPH) is an enlarged prostate gland that is caused by the normal aging process and not by cancer. The prostate is a walnut-sized gland that is involved in the production of semen. It is located in front of the rectum and below the bladder. The bladder stores urine and the urethra is the tube that carries the urine out of the body. The prostate may get bigger as a man gets older. An enlarged prostate can press on the urethra. This can make it harder to pass urine. The build-up of urine in the bladder can cause infection. Back pressure and infection may progress to bladder damage and kidney (renal) failure. What are the causes? This condition is part of a normal aging process. However, not all men develop problems from this condition. If the prostate enlarges away from the urethra, urine flow will not be blocked. If it enlarges toward the urethra and compresses it, there will be problems passing urine. What increases the risk? This condition is more likely to develop in men over the age of 50 years. What are the signs or symptoms? Symptoms of this condition include: ? Getting up often during the night to urinate. ? Needing to urinate frequently during the day. ? Difficulty starting urine flow. ? Decrease in size and strength of your urine stream. ? Leaking (dribbling) after urinating. ? Inability to pass urine. This needs immediate treatment. ? Inability to completely empty your bladder. ? Pain when you pass urine. This is more common if there is also an infection. ? Urinary tract infection (UTI). How is this diagnosed? This condition is diagnosed based on your medical history, a physical exam, and your symptoms. Tests will also be done, such as: ? A post-void bladder scan. This measures any amount of urine that may remain in your bladder after you finish urinating. ? A digital rectal exam. In a rectal exam, your health care provider checks your prostate by putting a lubricated, gloved finger into your rectum to feel the back of your prostate gland. This exam detects the size of your gland and any abnormal lumps or growths. ? An exam of your urine (urinalysis). ? A prostate specific antigen (PSA) screening. This is a blood test used to screen for prostate cancer. ? An ultrasound. This test uses sound waves to electronically produce a picture of your prostate gland. Your health care provider may refer you to a specialist in kidney and prostate diseases (urologist). How is this treated? Once symptoms begin, your health care provider will monitor your condition (active surveillance or watchful waiting). Treatment for this condition will depend on the severity of your condition. Treatment may include: ? Observation and yearly exams. This may be the only treatment needed if your condition and symptoms are mild. ? Medicines to relieve your symptoms, including: ? Medicines to shrink the prostate. ? Medicines to relax the muscle of the prostate. ? Surgery in severe cases. Surgery may include: ? Prostatectomy. In this procedure, the prostate tissue is removed completely through an open incision or with a laparoscope or robotics. ? Transurethral resection of the prostate (TURP). In this procedure, a tool is inserted through the opening at the tip of the penis (urethra). It is used to cut away tissue of the inner core of the prostate. The pieces are removed through the same opening of the penis. This removes the blockage. ? Transurethral incision (TUIP). In this procedure, small cuts are made in the prostate. This lessens the prostate's pressure on the urethra. ? Transurethral microwave thermotherapy (TUMT). This procedure uses microwaves to create heat. The heat destroys and removes a small amount of prostate tissue. ? Transurethral needle ablation (TUNA). This procedure uses radio frequencies to destroy and remove a small amount of prostate tissue. ? Interstitial laser coagulation (ILC). This procedure uses a laser to destroy and remove a small amount of prostate tissue. ? Transurethral electrovaporization (TUVP). This procedure uses electrodes to destroy and remove a small amount of prostate tissue. ? Prostatic urethral lift. This procedure inserts an implant to push the lobes of the prostate away from the urethra. Follow these instructions at home: ? Take stqn-[id number] and prescription medicines only as told by your health care provider. ? Monitor your symptoms for any changes. Contact your health care provider with any changes. ? Avoid drinking large amounts of liquid before going to bed or out in public. ? Avoid or reduce how much caffeine or alcohol you drink. ? Give yourself time when you urinate. ? Keep all follow-up visits as told by your health care provider. This is important. Contact a health care provider if: ? You have unexplained back pain. ? Your symptoms do not get better with treatment. ? You d (more content not included)... Normal [facility] Urology Office/Clinic Noteon 11-19-2021 Urology Office/Clinic Note Chief Complaint Follow up to TURBT HPI Staff Eli is here today following up to TURBT done on 11/11/21. CT abdomen/pelvis wo contrast done on 11/13/21 at [facility] impression shows Cholelithiasis, mild right hydronephrosis and perinephric edema with a right ureteral stent in place, diverticulosis without acute diverticulitis, air within the bladder lumen represent recent instrumentation, question wall thickening of the gastric fundus and proximal gastric body versus underdistention, additional nonacute finding described above. Path shows chronic cystitis glandularis, evidence of dysplasia or neoplasm is not seen. Previous DX: Bladder cancer, enlarged prostate with urinary obstruction, prostate cancer screening. Dysuria: _Denies Incomplete bladder emptying: _Denies Hematuria: _Denies Frequency: _Denies Urgency: _Denies Nocturia: _0-1x Stream: _steady Leaking: _Denies Post void dripping: _Denies Wearing pads/ Depends: _Denies Urge incontinence: _Denies Stress incontinence: _Denies Incontinence without Sensory Awareness: _Denies Abdominal pain: _Denies Flank pain: _yes right sided pain pt went to ER due to pain being so severe. Sexual complaints: _ History of Present Illness Tests reviewed: reviewed CT & pathology report. I have reviewed the previous health record information and history for this patient from Dr. Molina. I have reviewed and verified the staff HPI to be accurate for this encounter. There have been no associated fever, chills, flank pain, or blood in the urine. Denies any urinary infections since last encounter. Review of Systems PHQ Score Initial Depression Screen Score: 0 ROS - Provider Constitutional: denies weight loss, denies hot flashes. Eyes: denies eye problems. Gastrointestinal: denies nausea, denies vomiting. Cardiovascular: denies chest pain or angina. Integumentary: no dryness Musculoskeletal: denies musculoskeletal symptoms. ENMT: denies otolaryngeal symptoms. Respiratory: no shortness of breath. Heme/Lymph: denies easy bleeding tendency, denies easy bruising tendency. Psychiatric: no confusion, no anxiety. Genitourinary: denies dysuria, denies hematuria, denies discharge, denies urinary frequency, denies urinary hesitancy, denies nocturia, denies incontinence, denies genital sores, denies decreased libido, and denies erectile dysfunction. Physical Exam Vitals & Measurements HR: 63(Peripheral) RR: 16 BP: 139/64 HT: 175.0 cm HT: 175 cm WT: 88.0 kg WT: 88 kg BMI: 28.73 General Appearance: alert, no distress, well nourished, well developed male. Genitourinary: normal scrotum, normal testes, normal urethra, normal epididymis, normal vas deferens/spermatic cord. Flank Pain: none. Bladder: nonpalpable. Assessment/Plan 1. Bladder cancer (C67.9: Malignant neoplasm of bladder, unspecified) S/p TURBT 11/11/21 & Rt. stent placement. TURBT 01/2018. Patient was originally dx with low grade noninvasive cancer in 2018. First recurrence was in 11/2019. S/p Evolve Laser of bladder tumor. Cysto done 10/27/21 showed adjacent to the right UO is a 1 cm papillary TCC appearing lesion. Lateral to that is a 0.5 cm papillary TCC appearing lesions. Path report reviewed with pt today, shows chronic cystitis glandularis. Negative for recurrence. Pt went to the ER on 11/13/[address] scan shows stent in place and mild right hydro, perinephric edema. Recommended pt to increase Oxybutynin 10mg ER to BID until stent is removed. he will continue his daily keflex. Will schedule Cysto & Rt. stent removal. The risks and benefits for cystoscopy have been discussed. The risks include bleeding, infection, and irritation of the bladder and urinary channel, among others. The patient, after being informed of procedural details and after questions have been answered, wishes to proceed. Full informed consent has been obtained. Will order Local anesthesia. 2. Enlarged prostate with urinary obstruction (N40.1: Benign prostatic hyperplasia with lower urinary tract symptoms) S/p TURP 02/2018. Most recent PSA 1.77 done 11/01/21, previously 1.82 done in 2019. Follow-up With When Contact Information MACI BLAKE, Randall Garcia, [address] [place] [address]- Additional Instructions: Cysto/Rt. stent removal Patient Education Benign Prostatic Hyperplasia Ebonie Diana, personally scribed for Dr. Molina on 11/19/2021 09:10:25. . Documentation recorded by the scribe, Ebonie Dean, accurately reflects the services(s) I performed and decisions made by me. Authenticated by Dr. Molina on 11/19/2021 09:13:26. Problem List/Past Medical History Ongoing Bladder cancer BMI 28.0-28.9,adult Diabetes Enlarged prostate with urinary obstruction History of skin cancer History of urinary retention Hx of bladder cancer Hx of hepatitis Hypertension Historical No qualifying data Procedure/Surgical History Cystosc (more content not included)... Normal [facility] Comment on above: Result Comment: Elec tronically Signed By: Randall MOLINA MD\.br\Date and Time Signed: 11/19/21 09:13 EDT\.br\Electronically Co-Signed By: Ebonie Dean.br\Date and Time Co-Signed: 11/19/21 09:10 EDT Operative Reporton Operative Report [id number] D:127 Normal [facility] RAD - CT Reporton 11-16-2021 RAD - CT Report [id number] D:127 Normal [facility] CT ABD/PELVIS WO CONon 11-14 CT ABD/PELVIS WO CON EXAM: CT ABD/PELVIS WO CON REASON FOR EXAM: Male, 71 years, Pain. TECHNIQUE: Computed tomography of the abdomen and pelvis is performed in the axial projection from the lung bases to the pubic symphysis. Sagittal and coronal reconstructed images are performed. Dose reduction techniques were achieved by using automated exposure control and/or adjustment of mA and/or KVP according to patient size and/or use of iterative reconstruction technique. Study was performed without IV contrast. Study was performed without oral contrast. COMPARISON: None. FINDINGS: Lung bases: The lung bases are clear. There is no pleural effusion. The visualized portions of the heart are unremarkable. The lack of intravenous contrast slightly limits evaluation of the solid abdominal organs. Liver: There is diffuse decreased attenuation throughout the liver consistent with steatosis. Gallbladder: There is a calcified gallstone present. The gallbladder wall is not thickened. Spleen: The spleen is normal. Pancreas: The pancreas is normal. Adrenal glands: The adrenal glands are normal bilaterally. Right kidney: The kidney is normal in size. There is perinephric edema. A ureteral stent is noted, with the proximal tip coiled in the renal pelvis, the distal tip coiled within the bladder. There is mild right hydronephrosis. There is a tiny hyperdense lesion along the lateral aspect of the midpole of the right kidney, which may represent a hyperdense cyst. Left kidney: The kidney is normal in size. There is no renal calculus or hydronephrosis. Stomach: The stomach is under distended, limiting evaluation for wall abnormalities. Question gastric wall thickening within the fundus and proximal gastric body. Small bowel: There is a duodenal diverticulum. No small bowel obstruction. Large bowel: There are scattered colon diverticula. No acute diverticulitis. Appendix: The appendix is visualized, and is normal. Aorta: There are mild atherosclerotic calcifications of the abdominal aorta. IVC: The IVC is normal. Retroperitoneum: Normal retroperitoneum. Bladder: The bladder is moderately distended. There is a small amount of air within the bladder lumen, which may reflect recent ureteral stent placement. Pelvic organs: Normal prostate gland. Abdominal wall: Normal abdominal wall. Osseous structures: Degenerative changes are seen in the visualized spine. IMPRESSION: Cholelithiasis. Mild right hydronephrosis and perinephric edema, with a right ureteral stent in place. Diverticulosis, without acute diverticulitis. Air within the bladder lumen may represent recent instrumentation. Question wall thickening of the gastric fundus and proximal gastric body versus underdistention. Additional nonacute findings, as described above. Electronically authenticated by: HALLEY RAMIRES Date: 2021-11-13 22:[address] [facility] CULTURE URINEon 11-14-2021 CULTURE URINE Culture Observations : NO GROWTH. Normal [facility] Comment on above: Performed By: #### B MP #### [facility] [address] [place] [address] Dr. Gil Smith ER URINE PROFILEon 2 Bilirubin Ql (U) MODERATE Abnormal NEGATIVE [facility] Comment on above: Performed By: #### A 1C #### [facility] [address] [address] [address] Gil Smith Clarity (U) CLEAR Normal CLEAR [facility] Comment on above: Performed By: #### A 1C #### [facility] [address] [place] [address] Dr. Gil Smith Color (U) RED Abnormal YELLOW [facility] Comment on above: Performed By: #### A 1C #### [facility] [address] [place] [address] Dr. Gil Grimes micrscopic examination will be performed if indicated. Normal [facility] Comment on above: Performed By: #### A 1C #### [facility] [address] [place] [address] Dr. Gil Smith Glucose Ql (U) Negative Normal NEGATIVE [facility] Comment on above: Performed By: #### A 1C #### [facility] [address] [place] [address] Dr. Gil Smith Hemoglobin Ql (U) LARGE Abnormal NEGATIVE [facility] Comment on above: Performed By: #### A 1C #### [facility] [address] [place] [address] Dr. Gil Smith Ketones Ql (U) 40 mg/dl Abnormal NEGATIVE [facility] Comment on above: Performed By: #### A 1C #### [facility] [address] [place] [address] Dr. Gil Smith LEUKOCYTES MODERATE Abnormal NEGATIVE [facility] Comment on above: Performed By: #### A 1C #### [facility] [address] [place] [address] Dr. Gil Smith Nitrite Ql (U) Positive Abnormal NEGATIVE [facility] Comment on above: Performed By: #### A 1C #### [facility] [address] [place] [address] Dr. Gil Smith pH (U) 8.5 [pH] Normal 5-[address] [facility] Comment on above: Performed By: #### A 1C #### [facility] [address] [place] [address] Dr. Gil Smith Protein (U) [Mass/Vol] 100 mg/dL Abnormal NEGATIVE/ TRACE [facility] Comment on above: Performed By: #### A 1C #### [facility] [address] [place] [address] Dr. Gil Smith SPEC GRAVITY 1.015 Normal 1.005-<=1.025 [facility] Comment on above: Performed By: #### A 1C #### [facility] [address] [place] [address] Dr. Gil Smith UR MICRO IND INDICATED Normal [facility] Comment on above: Performed By: #### A 1C #### [facility] [address] [place] [address] Dr. Gil Smith Urobilinogen Qn (U) 2.0 {Ross'U}/dL Abnormal 0.2 - 1. [address] [facility] Comment on above: Performed By: #### A 1C #### [facility] [address] [place] [address] Dr. Gil Smith URINE MICROSCOPIC ONLYon BACTERIA SMALL Abnormal NONE SEEN [facility] Comment on above: Result Comment: Prev iously reported as: MODERATE On 11/13/2021 23:51 By [facility] Performed By: #### A 1C #### [facility] [address] [place] [address] Dr. Gil Smith Bacteria identified Cx Nom (U) INDICATED Normal [facility] Comment on above: Performed By: #### A 1C #### [facility] [address] [place] [address] Dr. Gil Smith CAST NONE SEEN Normal NONE SEEN [facility] Comment on above: Performed By: #### A 1C #### [facility] [address] [place] [address] Dr. Gil Smith Crystals LM Nom (Urine sed) NONE SEEN Normal NONE SEEN [facility] Comment on above: Performed By: #### A 1C #### [facility] [address] [place] [address] Dr. Gil Smith Epithelial cells LM Ql (Urine sed) RARE Normal NONE SEEN /RARE [facility] Comment on above: Performed By: #### A 1C #### [facility] [address] [place] [address] Dr. Gil Smith MUCOUS NONE SEEN Normal NONE SEEN [facility] Comment on above: Performed By: #### A 1C #### [facility] [address] [place] [address] Dr. Gil Smith RBC 0-2 Normal 0-[address] [facility] Comment on above: Result Comment: Prev iously reported as: >100 On 11/13/2021 23:51 By MH01 Performed By: #### A 1C #### [facility] [address] [place] [address] Dr. Gil Smith WBC 2-5 Abnormal [address] SEEN [facility] Comment on above: Performed By: #### A 1C #### [facility] [address] [place] [address] Dr. Gil Smith CBC AUTO DIFFon 11-13-2021 BASO # 0.0 103/ul Normal 0.0-0.1 [facility] Comment on above: Performed By: #### A 1C #### [facility] [address] [place] [address] Dr. Gil Smith Basophils/100 WBC (Bld) 0.2 % Normal 0.2-2.0 [facility] Comment on above: Performed By: #### A 1C #### [facility] [address] [place] [address] Dr. Gil Smith EO # 0.2 103/ul Normal 0.0-0.7 [facility] Comment on above: Performed By: #### A 1C #### [facility] [address] [place] [address] Dr. Gil Smith Eosinophils/100 WBC (Bld) 1.8 % Normal 0.9-7.0 [facility] Comment on above: Performed By: #### A 1C #### [facility] [address] [place] [address] Dr. Gil Smith Erythrocyte distribution width (RBC) [Ratio] 11.9 % Normal 11.0-15.0 [facility] Comment on above: Performed By: #### A 1C #### [facility] [address] [place] [address] Dr. Gil Smith Hematocrit (Bld) [Volume fraction] 44.5 % Normal 42.0-54.0 [facility] Comment on above: Performed By: #### A 1C #### [facility] [address] [place] [address] Dr. Gil Smith Hemoglobin (Bld) [Mass/Vol] 15.6 g/dL Normal 14.0-18.0 [facility] Comment on above: Performed By: #### A 1C #### [facility] [address] [place] [address] Dr. Gil Smith IG # 0.05 10e3/ul Critically high 0.00-0.03 [facility] Comment on above: Performed By: #### A 1C #### [facility] [address] [place] [address] Dr. Gil Smith IG % 0.4 % Normal 0.0-0.5 [facility] Comment on above: Performed By: #### A 1C #### [facility] [address] [place] [address] Dr. Gil Smith LYMPH # 2.1 103/ul Normal 1.2-3.8 [facility] Comment on above: Performed By: #### A 1C #### [facility] [address] [place] [address] Dr. Gil Smith Lymphocytes/100 WBC (Bld) 16.3 % Critically low 20.5-60.0 [facility] Comment on above: Performed By: #### A 1C #### [facility] [address] [place] [address] Dr. Gil Smith MANUAL DIFF REQ NO Normal [facility] Comment on above: Performed By: #### A 1C #### [facility] [address] [place] [address] Dr. Gil Smith MCH (RBC) [Entitic mass] 30.2 pg Normal 25.9-34.0 [facility] Comment on above: Performed By: #### A 1C #### [facility] [address] [place] [address] Dr. Gil Smith MCHC (RBC) [Mass/Vol] 35.1 g/dL Normal 29.9-35.2 [facility] Comment on above: Performed By: #### A 1C #### [facility] [address] [place] [address] Dr. Gil Smith MCV (RBC) [Entitic vol] 86.2 fL Normal 80.0-94.0 [facility] Comment on above: Performed By: #### A 1C #### [facility] [address] [address] [address] Gil Smith MONO # 0.7 103/ul Normal 0.3-0.[address] [facility] Comment on above: Performed By: #### A 1C #### [facility] [address] [address] [address] Gil Smith Monocytes/100 WBC (Bld) 5.3 % Normal 1.7-12.0 [facility] Comment on above: Performed By: #### A 1C #### [facility] [address] [address] [address] Gil Smith NEUT # 9.8 103/ul Critically high 1.4-6.5 [facility] Comment on above: Performed By: #### A 1C #### [facility] [address] [address] [address] Gil Smith Neutrophils/100 WBC (Bld) 76.0 % Critically high 43.0-75.0 [facility] Comment on above: Performed By: #### A 1C #### [facility] [address] [address] [address] Gil Smith Platelet mean volume (Bld) [Entitic vol] 9.4 fL Critically low 9.5-13.5 [facility] Comment on above: Performed By: #### A 1C #### [facility] [address] [address] [address] Gil Smith PLT 334 103/ul Normal 150-[address] [facility] Comment on above: Performed By: #### A 1C #### [facility] [address] [address] [address] Gil Smith RBC 5.16 106/ul Normal 4.70-6.[address] [facility] Comment on above: Performed By: #### A 1C #### [facility] [address] [address] [address] Gil Smith WBC 12.9 103/ul Critically high 4.0-11.0 [facility] Comment on above: Performed By: #### A 1C #### [facility] [address] [address] [address] Gil Smith PROF CHEM 8 (BAS METB)on Anion gap [Moles/Vol] 10.6 mmol/L Normal [facility] Comment on above: Performed By: #### B MP #### [facility] [address] [address] [address] Gil Smith Calcium [Mass/Vol] 9.1 mg/dL Normal 8.5-10.1 [facility] Comment on above: Performed By: #### B MP #### [facility] [address] [place] [address] Dr. Gil Smith Chloride [Moles/Vol] 101 mmol/L Normal 98-107 [facility] Comment on above: Performed By: #### B MP #### [facility] [address] [place] [address] Dr. Gil Smith CO2 [Moles/Vol] 30.7 mmol/L Normal 21.0-32.0 [facility] Comment on above: Performed By: #### B MP #### [facility] [address] [place] [address] Dr. Gil Smith Creatinine [Mass/Vol] 1.14 mg/dL Normal 0.70-1.30 [facility] Comment on above: Performed By: #### B MP #### [facility] [address] [place] [address] Dr. Gil Smith EGFR-AF IRAQI >60 Normal >=60 [facility] Comment on above: Performed By: #### B MP #### [facility] [address] [place] [address] Dr. Gil Smith EGFR-NON AF IRAQI >60 Normal >=60 [facility] Comment on above: Performed By: #### B MP #### [facility] [address] [place] [address] Dr. Gil Smith Glucose [Mass/Vol] 181 mg/dL Critically high 74-106 [facility] Comment on above: Performed By: #### B MP #### [facility] [address] [place], [place] [id number] Dr. Gil Smith Potassium [Moles/Vol] 4.3 mmol/L Normal 3.5-5.1 [facility] Comment on above: Performed By: #### B MP #### [facility] [address] [place] [address] Dr. Gil Smith Sodium [Moles/Vol] 138 mmol/L Normal 136-145 [facility] Comment on above: Performed By: #### B MP #### [facility] [address] [address] [address] Gil Smith Urea nitrogen [Mass/Vol] 19.0 mg/dL Critically high 7.0-18.0 [facility] Comment on above: Performed By: #### B MP #### [facility] [address] [place] [address] Dr. Gil Smith Urea nitrogen/Creatinine [Mass ratio] 16.7 mg/mg Normal [facility] Comment on above: Performed By: #### B MP #### [facility] [address] [place] [address] Dr. Gil Smith POINT OF CARE GLUCOSEon 09-0 Glucose [Mass/Vol] 115 mg/dL Critically high 74-106 [facility] Comment on above: Performed By: #### P OCGLUC #### [facility] [address] [place] [address] Dr. Gil Smith Lab Reportson 11-09-2021 Lab Reports [id number] D:127 Normal [facility] Covid-19 PCR (CVDTBH)on 10-12 SARS-CoV-2 (COVID-19) RNA ITA+probe Ql (Unsp spec) Not detected Normal NOT DETECTED [facility] Comment on above: Result Comment: This test is not yet approved or cleared by the [place] FDA. When there are no FDA-approved or cleared tests available, and other criteria are met, FDA can make tests available under an emergency access mechanism called an Emergency Use Authorization (EUA). The EUA for this test is supported by the [employer] of Health and Human Service's (HHS's) declaration that circumstances exist to justify the emergency use of in vitro diagnostics for the detection and/or diagnosis of the virus that causes COVID-19. This EUA will remain in effect (meaning this test can be used) for the duration of the COVID-19 declaration justifying emergency of IVDs, unless it is terminated or revoked by FDA (after which the test may no longer be used). When diagnostic testing is negative, the possibility of a false negative should be considered in the context of a patient's recent exposures and the presence of clinical signs and symptoms consistent with SARS-CoV-2. Performed By: #### C [facility] #### [facility] [address] [address] [address] Gil Smith UroVysion Fish and Urine Cyt o ( Labs)on 11-04-2021 UVFISH & UC Diagnosis Info Invalid Interpretation Code [facility] Comment on above: Result Comment: A:Ur ine,Urine:Voided Diagnosis Summary - Diagnosis Summary - The UroVysion FISH study detected normal copy numbers for chromosomes 3, 7, 17, and 9p21. 123 cells were analyzed in this evaluation. No evidence of aneuploidy for chromosomes 3, 7, or 17 or deletion of the 9p21 locus was found in cells present in this specimen. This test does not rule out the possibility of a low grade non-invasive papillary urothelial carcinoma. These findings should be correlated with cytology and cystoscopy results.* Microscopic Notes - Microscopic Notes - Abnormal cells 9p21 deletions: Abnormal cells aneploid events: Total cells analyzed: 123 Hematuria: Gross Description Site ID:A color Yellow fixative Alcohol Received 100 mls of clear yellow fluid with the patient's name and, Urine on the vial. Electronically signed by : on: 11/04/2021 09:49:45 Performed By: #### 1 [id number] ####[facility] [id number] [place] [address] ECG 12-Leadon 11-02-2021 ECG 12-Lead [id number] D:127 Normal [facility] Lab Reportson 11-02-2021 Lab Reports [id number] :127 Normal [facility] RAD - MISCon 11-02-2021 RAD - MISC [id number] D:127 Normal [facility] CBC AUTO DIFFon 11-01-2021 BASO # 0.0 103/ul Normal 0.0-0.1 [facility] Comment on above: Performed By: #### C BC #### [facility] [address] [address] [address] Gil Smith Basophils/100 WBC (Bld) 0.3 % Normal 0.2-2.0 [facility] Comment on above: Performed By: #### C BC #### [facility] [address] [place] [address] Dr. Gil Smith EO # 0.3 103/ul Normal 0.0-0.7 [facility] Comment on above: Performed By: #### C BC #### [facility] [address] [place] [address] Dr. Gil Smith Eosinophils/100 WBC (Bld) 2.8 % Normal 0.9-7.0 [facility] Comment on above: Performed By: #### C BC #### [facility] [address] [place] [address] Dr. Gil Smith Erythrocyte distribution width (RBC) [Ratio] 11.9 % Normal 11.0-15.0 [facility] Comment on above: Performed By: #### C BC #### [facility] [address] [place] [address] Dr. Gil Smith Hematocrit (Bld) [Volume fraction] 45.4 % Normal 42.0-54.0 [facility] Comment on above: Performed By: #### C BC #### [facility] [address] [place] [address] Dr. Gil Smith Hemoglobin (Bld) [Mass/Vol] 15.2 g/dL Normal 14.0-18.0 [facility] Comment on above: Performed By: #### C BC #### [facility] [address] [place] [address] Dr. Gil Smith IG # 0.02 10e3/ul Normal 0.00-0.03 [facility] Comment on above: Performed By: #### C BC #### [facility] [address] [place] [address] Dr. Gil Smith IG % 0.2 % Normal 0.0-0.5 [facility] Comment on above: Performed By: #### C BC #### [facility] [address] [place] [address] Dr. Gil Smith LYMPH # 2.3 103/ul Normal 1.2-3.8 [facility] Comment on above: Performed By: #### C BC #### [facility] [address] [place] [address] Dr. Gil Smith Lymphocytes/100 WBC (Bld) 26.1 % Normal 20.5-60.0 [facility] Comment on above: Performed By: #### C BC #### [facility] [address] [place] [address] Dr. Gil Smith MANUAL DIFF REQ NO Normal [facility] Comment on above: Performed By: #### C BC #### [facility] [address] [place] [address] Dr. Gil Smith MCH (RBC) [Entitic mass] 29.7 pg Normal 25.9-34.0 [facility] Comment on above: Performed By: #### C BC #### [facility] [address] [place] [address] Dr. Gil Smith MCHC (RBC) [Mass/Vol] 33.5 g/dL Normal 29.9-35.[address] [facility] Comment on above: Performed By: #### C BC #### [facility] [address] [place] [address] Dr. Gil Smith MCV (RBC) [Entitic vol] 88.8 fL Normal 80.0-94.0 [facility] Comment on above: Performed By: #### C BC #### [facility] [address] [place] [address] Dr. Gil Smith MONO # 0.4 103/ul Normal 0.3-0.8 [facility] Comment on above: Performed By: #### C BC #### [facility] [address] [place] [address] Dr. Gil Smith Monocytes/100 WBC (Bld) 4.6 % Normal 1.7-12.0 [facility] Comment on above: Performed By: #### C BC #### [facility] [address] [place] [address] Dr. Gil Smith NEUT # 5.9 103/ul Normal 1.4-6.5 [facility] Comment on above: Performed By: #### C BC #### [facility] [address] [place] [address] Dr. Gli Smith Neutrophils/100 WBC (Bld) 66.0 % Normal 43.0-75.0 [facility] Comment on above: Performed By: #### C BC #### [facility] [address] [place] [address] Dr. Gil Smith Platelet mean volume (Bld) [Entitic vol] 9.3 fL Critically low 9.5-13.5 [facility] Comment on above: Performed By: #### C BC #### [facility] [address] [place] [address] Dr. Gil Smith PLT 306 103/ul Normal 150-[address] [facility] Comment on above: Performed By: #### C BC #### [facility] [address] [place] [address] Dr. Gil Smith RBC 5.11 106/ul Normal 4.70-6.[address] [facility] Comment on above: Performed By: #### C BC #### [facility] [address] [place] [address] Dr. Gil Smith WBC 8.9 103/ul Normal 4.0-11.[address] [facility] Comment on above: Performed By: #### C BC #### [facility] [address] [place] [address] Dr. Gil Smith PROF CHEM 8 (BAS METB)on Anion gap [Moles/Vol] 9.5 mmol/L Normal [facility] Comment on above: Performed By: #### B MP #### [facility] [address] [place] [address] Dr. Gil Smith Calcium [Mass/Vol] 9.2 mg/dL Normal 8.5-10.1 [facility] Comment on above: Performed By: #### B MP #### [facility] [address] [address] [address] Gil Smith Chloride [Moles/Vol] 103 mmol/L Normal 98-107 [facility] Comment on above: Performed By: #### B MP #### [facility] [address] [place] [address] Dr. Gil Smith CO2 [Moles/Vol] 30.5 mmol/L Normal 21.0-32.0 [facility] Comment on above: Performed By: #### B MP #### [facility] [address] [place] [address] Dr. Gil Smith Creatinine [Mass/Vol] 1.00 mg/dL Normal 0.70-1.30 [facility] Comment on above: Performed By: #### B MP #### [facility] [address] [place] [address] Dr. Gil Smith EGFR-AF IRAQI >60 Normal >=60 [facility] Comment on above: Performed By: #### B MP #### [facility] [address] [place] [address] Dr. Gil Smith EGFR-NON AF IRAQI >60 Normal >=60 [facility] Comment on above: Performed By: #### B MP #### [facility] [address] [place] [address] Dr. Gil Smith Glucose [Mass/Vol] 120 mg/dL Critically high 74-106 [facility] Comment on above: Performed By: #### B MP #### [facility] [address] [place] [address] Dr. Gil Smith Potassium [Moles/Vol] 5.0 mmol/L Normal 3.5-5.1 [facility] Comment on above: Performed By: #### B MP #### [facility] [address] [address] [address] Gil Smith Sodium [Moles/Vol] 138 mmol/L Normal 136-145 [facility] Comment on above: Performed By: #### B MP #### [facility] [address] [address] [address] Gil Smith Urea nitrogen [Mass/Vol] 13.0 mg/dL Normal 7.0-18.0 [facility] Comment on above: Performed By: #### B MP #### [facility] [address] [place] [address] Dr. Gil Smith Urea nitrogen/Creatinine [Mass ratio] 13.0 mg/mg Normal [facility] Comment on above: Performed By: #### B MP #### [facility] [address] [place] [address] Dr. Gil Smith PROTIMEon 11-01-2021 INR Coag (PPP) [Relative time] 1.00 {INR} Normal [facility] Comment on above: Performed By: #### B MP #### [facility] [address] [place] [address] Dr. Gil Smith INR GUIDELINES SEE BELOW Normal [facility] Comment on above: Result Comment: CHUCK RED INR: 2.0 - 3.0 CONDITIONS NOT LISTED BELOW 2.5 - 3.5 FOR PROSTHETIC HEART VALVE REPLACEMENT 2.5 - 3.5 RECURRENT THROMBOSIS Performed By: #### B MP #### [facility] [address] [place] [address] Dr. Gil Smith PT Coag (PPP) [Time] 10.8 s Normal 9.0-11.6 [facility] Comment on above: Performed By: #### B MP #### [facility] [address] [place] [address] Dr. Gil Smith PTTon 11-01-2021 aPTT Coag (Bld) [Time] 27.7 s Normal 22.3-36.2 [facility] Comment on above: Performed By: #### P T, PTT #### [facility] [id number] Gil Smith XR CHEST 2 Von 11-01-2021 XR CHEST 2 V EXAM: XR CHEST 2 V HISTORY: Essential hypertension COMPARISON: 07/23/2019 TECHNIQUE: Upright PA and lateral chest x-ray FINDINGS: The heart is not enlarged and the vasculature is not distended. No acute infiltrate, effusion or pneumothorax is identified. Some calcification of costochondral cartilage is noted. The osseous structures are grossly intact. IMPRESSION: No acute infiltrate or evidence of cardiac decompensation. The overall appearance of the chest is unchanged. Electronically authenticated by: DANAY ROSADO Date: 2021-11-01 16:55 Normal [facility] Consent for Procedure/Surger yon 10-28-2021 Consent for Procedure/Surgery [id number] D:127 Normal [facility] Ambulatory Visit Summaryon 0 10-27-2021 Ambulatory Visit Summary ELI GARRISON :1950 Visit Date:10/27/2021 Ambulatory Visit Instructions Your Diagnosis Bladder cancer Enlarged prostate with urinary obstruction Prostate cancer screening Your Care Team Attending Physician - Randall MOLINA MD Primary Care Physician - ANTONI COHN DO This Is Your Medications List ciprofloxacin (Cipro 500 mg Tab) Contact prescribing physician if questions or concerns benazepril (benazepril 20 mg Tab) metformin (metformin 1000 mg Tab) Procedures Performed Cystoscopy (10/27/2021), Cystoscopy (07/28/2021), Cystoscopy (04/21/2021), Cystoscopy (01/20/2021), Cystoscopy (10/14/2020), Cystoscopy (06/17/2020), Cystoscopy (03/03/2020), Ablation of neoplasm of urinary bladder using laser (11/19/2019), Cystoscope (11/05/2019), Cystoscopy (07/30/2019), Cystoscope (02/20/2019), Cystoscopy (11/27/2018), Cystoscopy (08/21/2018), TURP - Transurethral resection of prostate (02/15/2018), Cystoscopy and transurethral resection of bladder tumour (01/25/2018), Urodynamics (01/16/2018), Colonoscopy, Knee replacement. Discharge Vitals Heart Rate (Peripheral) 77 Blood Pressure 139/83 Height 175.0 cm Height 175 cm Weight 88.0 kg Weight 88 kg BMI 28.73 What to do next You Need to Schedule the Following Appointments Follow Up with MACI BLAKE, AUBREY Renteria When: Where: [facility] [address], [place] [phone]- [phone] Medications What How Much When Instructions Unchanged ciprofloxacin (Cipro 500 mg Tab) 1 Tablets By Mouth Every day Take 1 tablet the day before the procedure and 1 tablet after the procedure Unchanged benazepril (benazepril 20 mg Tab) 1 Tablets By Mouth Every day Contact prescribing physician if questions or concerns Unchanged metformin (metformin 1000 mg Tab) 1 Tablets By Mouth 2 times a day Contact prescribing physician if questions or concerns Allergies No Known Medication Allergies Problems Ongoing - Any problem that you are currently receiving treatment for. Bladder cancer BMI 28.0-28.9,adult Diabetes Enlarged prostate with urinary obstruction History of skin cancer History of urinary retention Hx of bladder cancer Hx of hepatitis Hypertension Education Materials Cancer Screening for Men A cancer screening is a test or exam that checks for cancer. Your health care provider will recommend specific cancer screenings based on your age, personal history, and family history of cancer. Work with your health care provider to create a cancer screening schedule that protects your health. Why is cancer screening done? Cancer screening is done to look for cancer in the very early stages, before it spreads and becomes harder to treat and before you would start to notice symptoms. Finding cancer early improves the chances of successful treatment. It may save your life. Who should be screened for cancer? All men should be screened for colorectal cancer and skin cancer. Your health care provider may recommend screenings for other types of cancer if: ? You had cancer before. ? You have a family member with cancer. ? You have abnormal genes that could increase the risk of cancer. ? You have risk factors for certain cancers, such as smoking. When you should be screened for cancer depends on: ? Your age. ? Your medical history and your family's medical history. ? Certain lifestyle factors, such as smoking. ? Environmental exposure, such as to asbestos. What are some common cancer screenings? Lung cancer Lung cancer screening is done with a CT scan that looks for abnormal cells in the lungs. Discuss lung cancer screening with your health care provider if you are 55?74 years old and if any of the following apply to you: ? You currently smoke. ? You used to smoke heavily. ? You have a smoking history of 1 pack a day for 30 years or 2 packs a day for 15 years. ? You have quit smoking within the past 15 years. If you smoke heavily or if you used to smoke, you may need to be screened every year. Prostate cancer Prostate cancer screening is done with blood tests and an exam in which a health care provider uses a gloved finger to check prostate size (digital rectal exam). You may need to be screened for prostate cancer if: ? You have risk factors of prostate cancer, such as being or having a close family member with prostate cancer. ? You have inherited gene changes or a genetic condition, including BRCA1 or BRCA2 gene mutations or Jones syndrome. ? You have symptoms of prostate cancer, such as problems urinating or erectile dysfunction. Prostate cancer screening for men with average risk may start at age 50. Men with risk factors may need to be screened earlier at age 40?45. Once you have been screened for prostate cancer, future screening may be recommended based on the results of your blood tests. Colorectal cancer [Image Removed (more content not included)... Normal [facility] Patient Educationon 10-28-19 Patient Education Oncology Cancer Screening for Men A cancer screening is a test or exam that checks for cancer. Your health care provider will recommend specific cancer screenings based on your age, personal history, and family history of cancer. Work with your health care provider to create a cancer screening schedule that protects your health. Why is cancer screening done? Cancer screening is done to look for cancer in the very early stages, before it spreads and becomes harder to treat and before you would start to notice symptoms. Finding cancer early improves the chances of successful treatment. It may save your life. Who should be screened for cancer? All men should be screened for colorectal cancer and skin cancer. Your health care provider may recommend screenings for other types of cancer if: ? You had cancer before. ? You have a family member with cancer. ? You have abnormal genes that could increase the risk of cancer. ? You have risk factors for certain cancers, such as smoking. When you should be screened for cancer depends on: ? Your age. ? Your medical history and your family's medical history. ? Certain lifestyle factors, such as smoking. ? Environmental exposure, such as to asbestos. What are some common cancer screenings? Lung cancer Lung cancer screening is done with a CT scan that looks for abnormal cells in the lungs. Discuss lung cancer screening with your health care provider if you are 55?74 years old and if any of the following apply to you: ? You currently smoke. ? You used to smoke heavily. ? You have a smoking history of 1 pack a day for 30 years or 2 packs a day for 15 years. ? You have quit smoking within the past 15 years. If you smoke heavily or if you used to smoke, you may need to be screened every year. Prostate cancer Prostate cancer screening is done with blood tests and an exam in which a health care provider uses a gloved finger to check prostate size (digital rectal exam). You may need to be screened for prostate cancer if: ? You have risk factors of prostate cancer, such as being or having a close family member with prostate cancer. ? You have inherited gene changes or a genetic condition, including BRCA1 or BRCA2 gene mutations or Jones syndrome. ? You have symptoms of prostate cancer, such as problems urinating or erectile dysfunction. Prostate cancer screening for men with average risk may start at age 50. Men with risk factors may need to be screened earlier at age 40?45. Once you have been screened for prostate cancer, future screening may be recommended based on the results of your blood tests. Colorectal cancer All adults should have screening for colorectal cancer starting at age 50 and continuing until age 75. Your health care provider may recommend screening at age 45. You will have tests every 1?10 years, depending on your results and the type of screening test. If you have a family history of colon or rectal cancer or other risk factors, you may need to start having screenings earlier. Talk with your health care provider about which screening test is right for you and how often you should be screened. Colorectal cancer screening looks for cancer or for growths called polyps that often form before cancer starts. Tests to look for cancer or polyps include: ? Colonoscopy or flexible sigmoidoscopy. For these procedures, a flexible tube with a small camera is inserted into the rectum. ? CT colonography. This test uses X-rays and a contrast dye to check the colon for polyps. If a polyp is found, you may need to have a colonoscopy so the polyp can be located and removed. Tests to look for cancer in the stool (feces) include: ? Guaiac-based fecal occult blood test (FOBT). This test detects blood in stool. It can be done at home with a kit. ? Fecal immunochemical test (FIT). This test detects blood in stool. For this test, you will need to collect stool samples at home. ? Stool DNA test. This test looks for blood in stool and any changes in DNA that can lead to colon cancer. For this test, you will need to collect a stool sample at home and send it to a lab. Skin cancer Skin cancer screening is done by checking the skin for unusual moles or spots and any changes in existing moles. Your health care provider should check your skin for signs of skin cancer at every physical exam. You should check your skin every month and tell your health care provider right away if anything looks unusual. Men with a zxitov-nixk-oyjnic risk for skin cancer may want to see a operations staff specialist security (is analyst) for an annual body check. Where to find more information ? [employer] [place]: https://www.cancer.gov/ about-cancer/screening ? Centers for Disease Control and Prevention: https://www.cdc.gov/can cer/dcpc/prevention/scr eening.htm ? [employer]: https://www.cancer.org/ latest-news/4-cancer-sc ziijsiv-wbsdx-jju-men.h tml Contact a health care (more content not included)... Normal [facility] Physician Orderon 10-27-2021 Physician Order [id number] :127 Normal [facility] UroVysion Fish and Urine Cyt o ( Labs)on 10-27-2021 [facility] Method of Extraction Voided Normal [facility] Comment on above: Performed By: #### 1 [id number] ####[facility] [address] [place] [address] [facility] Number of Jars 1 Invalid Interpretation Code [facility] Comment on above: Performed By: #### 1 [id number] ####[facility] [address] [place] [address] [facility] Specimen Urine Normal [facility] Comment on above: Performed By: #### 1 [id number] ####[facility] [address] [place] [address] [facility] Type of Service Global Normal [facility] Comment on above: Performed By: #### 1 [id number] ####[facility] [address] [place] [address] Urology Office/Clinic Noteon 10-27-2021 Urology Office/Clinic Note Chief Complaint Pt is here for cystoscopy HPI Staff Eli is a 71 y.o. male here for a cystoscopy. ABX taken. FISH/Cytol given. History of Present Illness I have reviewed and verified the staff HPI to be accurate for this encounter. Review of Systems PHQ Score Initial Depression Screen Score: 0 ROS - Provider Constitutional: denies weight loss, denies hot flashes. Eyes: denies eye problems. Gastrointestinal: denies nausea, denies vomiting. Cardiovascular: denies chest pain or angina. Integumentary: no dryness Musculoskeletal: denies musculoskeletal symptoms. ENMT: denies otolaryngeal symptoms. Respiratory: no shortness of breath. Heme/Lymph: denies easy bleeding tendency, denies easy bruising tendency. Psychiatric: no confusion, no anxiety. Genitourinary: denies dysuria, denies hematuria, denies discharge, denies urinary frequency, denies urinary hesitancy, denies nocturia, denies incontinence, denies genital sores, denies decreased libido, and denies erectile dysfunction. Physical Exam Vitals & Measurements HR: 77(Peripheral) BP: 139/83 HT: 175.0 cm HT: 175 cm WT: 88.0 kg WT: 88 kg BMI: 28.73 General Appearance: alert, no distress, well nourished, well developed male. Genitourinary: normal scrotum, normal testes, normal urethra, normal epididymis, normal vas deferens/spermatic cord. Flank Pain: none. Bladder: nonpalpable. Procedure Operative Information Anesthesia Type: Local Procedure: Local Cystoscopy Complications: None Surgical risks, benefits, details of the procedure have been explained to the patient. Full informed consent has been obtained. Intraoperative Information Prepped: Patient is brought back to the endoscopy suite. Patient is placed in supine position. Patient prepped in the usual fashion with Betadine solution. 2% Xylocaine Jelly is placed per Urethra. After waiting several minutes, the Cystoscope is introduced. The Urethra is: Normal The Prostatic Urethra is: bilobar hypertrophy The Bladder: Abnormal, Trabeculated: None (0) adjacent to the right UO is a 1cm papillary TCC appearing lesion. Lateral to that is a .5cm papillary TCC appearing lesion. The Ureteral orifices: Show efflux of clear urine Specimens Removed: Voided specimen sent for FISH and Cytology test Removal: Cystoscope is removed. The patient tolerated it well. Postoperative Information Patient is discharged home with antibiotic coverage. Follow up arranged. Assessment/Plan 1. Bladder cancer (C67.9: Malignant neoplasm of bladder, unspecified) Patient was originally dx with Low grade noninvasive Cancer in 2017. S/P TURBT 01/2018. His First recurrence was in 11/2019. S/P Evolve Laser of bladder tumor (low grade noninvasive). Cystoscopy today IO showed adjacent to the right UO is a 1cm papillary TCC appearing lesion. Lateral to that is a .5cm papillary TCC appearing lesion. Discussed with pt we need to preform a TURBT and possible right ureteroscopy. 2. Enlarged prostate with urinary obstruction (N40.1: Benign prostatic hyperplasia with lower urinary tract symptoms) S/p TURP 02/2018. Prostate cancer screening (Z12.5: Encounter for screening for malignant neoplasm of prostate) Pt's last PSA was 2019 at 1.82. Will give pt a slip today to get his PSA drawn. Follow-up With When Contact Information MACI BLAKE, Randall R, URL [facility] [address], [place] [address] [phone] Additional Instructions: Patient Education Cancer Screening for Men IDaniella, personally scribed for Dr. Molina on 10/27/2021 08:08:53. . Documentation recorded by the scribperez, Daniella Anthony, accurately reflects the services(s) I performed and decisions made by me. Problem List/Past Medical History Ongoing Bladder cancer BMI 28.0-28.9,adult Diabetes Enlarged prostate with urinary obstruction History of skin cancer History of urinary retention Hx of bladder cancer Hx of hepatitis Hypertension Historical No qualifying data Procedure/Surgical History Cystoscopy (10/27/2021), Cystoscopy (07/28/2021), Cystoscopy (04/21/2021), Cystoscopy (01/20/2021), Cystoscopy (10/14/2020), Cystoscopy (06/17/2020), Cystoscopy (03/03/2020), Ablation of neoplasm of urinary bladder using laser (11/19/2019), Cystoscope (11/05/2019), Cystoscopy (07/30/2019), Cystoscope (02/20/2019), Cystoscopy (11/27/2018), Cystoscopy (08/21/2018), TURP - Transurethral resection of prostate (02/15/2018), Cystoscopy and transurethral resection of bladder tumour (01/25/2018), Urodynamics (01/16/2018), Colonoscopy, Knee replacement. Medications benazepril 20 mg Tab, 20 mg= 1 tab(s), Oral, Daily Cipro 500 mg Tab, 500 mg= 1 tab(s), Oral, Daily metformin 1000 mg Tab, 1000 mg= 1 tab(s), Oral, BID Allergies No Known Medication Allergies Social History Alcohol - Denies Alcohol Use, 11/27/2018 Substance Abuse - Denies Substance Abuse, 11/27/2018 Tobacco - High Ri (more content not included)... Normal [facility] Comment on above: Result Comment: Elec tronically Signed By: Randall MOLINA MD\.br\Date and Time Signed: 10/27/21 08:10 EDT\.br\Electronically Co-Signed By: Daniella Anthony MA\.br\Date and Time Co-Signed: 10/27/21 08:09 EDT GLYCOHEMOGLOBIN A1Con 2021 ADA RECOMMENDATION SEE BELOW Normal [facility] Comment on above: Result Comment: ADA RECOMMENDED LIMIT 4.0 - 6.0 ADA THERAPEUTIC TARGET < 7.0 ACTION SUGGESTED > 7.0 Performed By: #### B MP #### [facility] [address] [place] [address] Dr. Gil Smith Glucose [Mass/Vol] 140 mg/dL Normal [facility] Comment on above: Performed By: #### B MP #### [facility] [address] [address] [address] Gil Smith HbA1c (Bld) [Mass fraction] 6.5 % Critically high 4.5-6.2 [facility] Comment on above: Performed By: #### B MP #### [facility] [address] [address] [address] Gil Smith GLYCOHEMOGLOBIN A1Con 2021 ADA RECOMMENDATION ADA THERAPEUTIC TARG ET 6.0 - 7.0 ACTION SUGGESTED > 7.0 Normal [facility] Comment on above: Performed By: #### A 1C #### [facility] [address] [address] [address] Gil Smith Glucose [Mass/Vol] 137 mg/dL Normal [facility] Comment on above: Performed By: #### A 1C #### [facility] [address] [address] [address] Gil Smith HbA1c (Bld) [Mass fraction] 6.4 % Critically high <=6.0 [facility] Comment on above: Performed By: #### A 1C #### [facility] [address] [address] [address] Gil Smith Bladder Cancer FISHon 2021 Specimen Type: Normal [facility] Comment on above: Result Comment: See report. Scanned copy available in EMR. PERFORMED BY: [place] [id number] PATHOLOGIST [employer] COUNTER [employer]OCIATE CHANCE ALMARAZ M.D. Performed By: #### F RAYSA BLADD #### [facility] , [place] 04-21-2021 L --- Specimen: [id number] Received: 04/22/21 Status: DEBI Rodgers Num: [id number] Spec Type: Cytology Subm Dr: Randall Molina MD Tissues: A URINECYTO (URINE) Procedures: Pap Stain, Cyto Prepstain Patient Age/Sex Location Account Attending Physician Eli Garrison 71/M PA [id number] Randall Molina MD SPEC NUM: [id number] RECD: 04/22/21 STATUS: DEBI TINOCOTadeo NUM: [id number] KENIA: 04/21/21- SUBM DR: Randall Molina MD ENTERED: 04/22/[address] [facility] [address]: SPEC TYPE: Cytology DEPT: [facility] ENTERED BY: [id number] RECV BY: [id number] ORDERED: Pap Stain, Cyto Prepstain ORDERED: Pap Stain, Cyto Prepstain Pathological Diagnosis Urine, ThinPrep cytology: - No evidence of high-grade urothelial carcinoma identified. - Specimen consists of urothelial cells singly or in clusters without significant cytologic atypia. Clinical Information History of bladder cancer, cystoscopy Gross Description Received is 30ml yellow clear unfixed fluid said to have been obtained as urine. ThinPrep is prepared for microscopic examination.(ROWAN/antony) Microscopic Description One Papanicolaou stained thin prep slide. The microscopic findings support the above diagnosis. CPT Codes 71922 Specimen: [id number] Received: 04/22/21 Status: DEBI Rodgers Num: [id number] Spec Type: Cytology Subm Dr: Randall Molina MD Tissues: A URINECYTO (URINE) Procedures: Pap Stain, Cyto Prepstain Patient: Eli Garrison [id number] (Continued) Signed (signature on file) Ryan Cr MD 04/22/21 1807 Normal [facility] PSA SCREENING [facility]on 02-12 Prostate specific Ag [Mass/Vol] 1.5 ng/mL Normal 0.0-4.0 [facility] Comment on above: Result Comment: Talita COLEMAN methodology. . According to the [place] [employer], Serum PSA should decrease and remain at undetectable levels after radical prostatectomy. The AUA defines biochemical recurrence as an initial PSA value 0.2 ng/mL or greater followed by a subsequent confirmatory PSA value 0.2 ng/mL or greater. Values obtained with different assay methods or kits cannot be used interchangeably. Results cannot be interpreted as absolute evidence of the presence or absence of malignant disease. Performed By: #### P SASCLC #### [facility] [address] [address] [address] Gil Smith VIT D 25-OH [facility]on 2020 Vitamin D, 25-Hydroxy 32.9 ng/mL Normal 30.0-100.0 [facility] Comment on above: Result Comment: Kelly min D deficiency has been defined by the [place] [employer] and an Endocrine Society practice guideline as a level of serum 25-OH vitamin D less than 20 ng/mL (1,2). The Endocrine Society went on to further define vitamin D insufficiency as a level between 21 and 29 ng/mL (2). 1. IOM ([place] of [employer]). 2010. Dietary reference intakes for calcium and D. [place]: The National Academies Press. 2. Pedro MF, Rosa Elena [place], Jamison XIONG, et al. Evaluation, treatment, and prevention of vitamin D deficiency: an Endocrine Society clinical practice guideline. JCEM. 2010; 96(7):1911-30. Performed By: #### B MP #### [facility] [address] [address] [address] Gil Smith CBC AUTO DIFFon 03-10-2021 BASO # 0.0 103/ul Normal 0.0-0.1 [facility] Comment on above: Performed By: #### B MP #### [facility] [address] [address] [address] Gil Smith Basophils/100 WBC (Bld) 0.5 % Normal 0.2-2.0 [facility] Comment on above: Performed By: #### B MP #### [facility] [address] [place] [address] Dr. Gil Smith EO # 0.3 103/ul Normal 0.0-0.[address] [facility] Comment on above: Performed By: #### B MP #### [facility] [address] [place] [address] Dr. Gil Smith Eosinophils/100 WBC (Bld) 3.0 % Normal 0.9-7.0 [facility] Comment on above: Performed By: #### B MP #### [facility] [address] [place] [address] Dr. Gil Smith Erythrocyte distribution width (RBC) [Ratio] 12.1 % Normal 11.0-15.0 [facility] Comment on above: Performed By: #### B MP #### [facility] [address] [place] [address] Dr. Gil Smith Hematocrit (Bld) [Volume fraction] 45.2 % Normal 42.0-54.0 [facility] Comment on above: Performed By: #### B MP #### [facility] [address] [place] [address] Dr. Gil Smith Hemoglobin (Bld) [Mass/Vol] 15.1 g/dL Normal 14.0-18.[address] [facility] Comment on above: Performed By: #### B MP #### [facility] [address] [place] [address] Dr. Gil Smith IG # 0.03 10e3/ul Normal 0.00-0.[address] [facility] Comment on above: Performed By: #### B MP #### [facility] [address] [place] [address] Dr. Gil Smith IG % 0.4 % Normal 0.0-0.[address] [facility] Comment on above: Performed By: #### B MP #### [facility] [address] [place] [address] Dr. Gil Smith LYMPH # 2.7 103/ul Normal 1.2-3.[address] [facility] Comment on above: Performed By: #### B MP #### [facility] [address] [place] [address] Dr. Gil Smith Lymphocytes/100 WBC (Bld) 31.9 % Normal 20.5-60.0 [facility] Comment on above: Performed By: #### B MP #### [facility] [address] [place] [address] Dr. Gil Smith MANUAL DIFF REQ NO Normal [facility] Comment on above: Performed By: #### B MP #### [facility] [address] [place] [address] Dr. Gil Smith MCH (RBC) [Entitic mass] 29.6 pg Normal 25.9-34.0 [facility] Comment on above: Performed By: #### B MP #### [facility] [address] [place] [address] Dr. Gil Smith MCHC (RBC) [Mass/Vol] 33.4 g/dL Normal 29.9-35.[address] [facility] Comment on above: Performed By: #### B MP #### [facility] [address] [place] [address] Dr. Gil Smith MCV (RBC) [Entitic vol] 88.6 fL Normal 80.0-94.0 [facility] Comment on above: Performed By: #### B MP #### [facility] [address] [place] [address] Dr. Gil Smith MONO # 0.4 103/ul Normal 0.3-0.[address] [facility] Comment on above: Performed By: #### B MP #### [facility] [address] [place] [address] Dr. Gil Smith Monocytes/100 WBC (Bld) 4.9 % Normal 1.7-12.[address] [facility] Comment on above: Performed By: #### B MP #### [facility] [address] [place] [address] Dr. Gil Smith NEUT # 4.9 103/ul Normal 1.4-6.5 [facility] Comment on above: Performed By: #### B MP #### [facility] [address] [place] [address] Dr. Gil Smith Neutrophils/100 WBC (Bld) 59.3 % Normal 43.0-75.0 [facility] Comment on above: Performed By: #### B MP #### [facility] [address] [place] [address] Dr. Gil Smith Platelet mean volume (Bld) [Entitic vol] 9.0 fL Critically low 9.5-13.5 [facility] Comment on above: Performed By: #### B MP #### [facility] [address] [place] [address] Dr. Gil Smith PLT 307 103/ul Normal 150-450 [facility] Comment on above: Performed By: #### B MP #### [facility] [address] [place] [address] Dr. Gil Smith RBC 5.10 106/ul Normal 4.70-6.10 [facility] Comment on above: Performed By: #### B MP #### [facility] [address] [place] [address] Dr. Gil Smith WBC 8.3 103/ul Normal 4.0-11.0 [facility] Comment on above: Performed By: #### B MP #### [facility] [address] [place] [address] Dr. Gil Smith GLYCOHEMOGLOBIN A1Con 2020 ADA RECOMMENDATION ADA THERAPEUTIC TARG ET 6.0 - 7.0 ACTION SUGGESTED > 7.0 Normal [facility] Comment on above: Performed By: #### A 1C #### [facility] [address] [place] [address] Dr. Gil Smith Glucose [Mass/Vol] 131 mg/dL Normal [facility] Comment on above: Performed By: #### A 1C #### [facility] [address] [place] [address] Dr. Gil Smith HbA1c (Bld) [Mass fraction] 6.2 % Critically high <=6.0 [facility] Comment on above: Performed By: #### A 1C #### [facility] [address] [address] [address] Gil Smith MICROALBUMIN, RAND URon 12-2 mALB <1.3 Normal <=30.0 [facility] Comment on above: Performed By: #### B MP #### [facility] [address] [place] [address] Dr. Gil Smith PROF CHEM 8 (BAS METB)on Anion gap [Moles/Vol] 8.6 mmol/L Normal [facility] Comment on above: Performed By: #### B MP #### [facility] [address] [place] [address] Dr. Gil Smith Calcium [Mass/Vol] 9.1 mg/dL Normal 8.4-10.2 [facility] Comment on above: Performed By: #### B MP #### [facility] [address] [place] [address] Dr. Gil Smith Chloride [Moles/Vol] 103 mmol/L Normal 98-107 [facility] Comment on above: Performed By: #### B MP #### [facility] [address] [place] [address] Dr. Gil Smith CO2 [Moles/Vol] 31.5 mmol/L Critically high 22.0-30.0 [facility] Comment on above: Performed By: #### B MP #### [facility] [address] [place] [address] Dr. Gil Smith Creatinine [Mass/Vol] 0.89 mg/dL Normal 0.66-1.[address] [facility] Comment on above: Performed By: #### B MP #### [facility] [address] [place] [address] Dr. Gil Smith EGFR-AF IRAQI >60 Normal >=60 [facility] Comment on above: Performed By: #### B MP #### [facility] [address] [place] [address] Dr. Gil Smith EGFR-NON AF IRAQI >60 Normal >=60 [facility] Comment on above: Performed By: #### B MP #### [facility] [address] [address] [address] Gil Smith Glucose [Mass/Vol] 117 mg/dL Critically high 74-106 [facility] Comment on above: Performed By: #### B MP #### [facility] [id number] Gil Smith Potassium [Moles/Vol] 4.1 mmol/L Normal 3.4-5.0 [facility] Comment on above: Performed By: #### B MP #### [facility] [address] [address] [address] Gil Smith Sodium [Moles/Vol] 139 mmol/L Normal 137-145 [facility] Comment on above: Performed By: #### B MP #### [facility] [address] [address] [address] Gil Smith Urea nitrogen [Mass/Vol] 13.0 mg/dL Normal 9.0-20.0 [facility] Comment on above: Performed By: #### B MP #### [facility] [address] [address] [address] Gil Smith Urea nitrogen/Creatinine [Mass ratio] 14.6 mg/mg Normal [facility] Comment on above: Performed By: #### B MP #### [facility] [address] [address] [address] Gil Smith Bladder Cancer Counts include 234 beds at the [facility] 2020 Specimen Type: Normal [facility] Comment on above: Result Comment: See report. Scanned copy available in EMR. PERFORMED BY: [address] [id number] PATHOLOGIST [employer] COUNTER ASSOCIATE CHACNE ALMARAZ M.D. Performed By: #### F RAYSA BLADD #### [facility] , [facility] 01-20-2021 L --- Specimen: [id number] Received: 01/21/21 Status: DEBI Vishal Num: [id number] Spec Type: Cytology Subm Dr: Randall Molina MD Tissues: A URINECYTO (URINE-BLADDER WASH) Procedures: Pap Stain, Cyto Prepstain Patient Age/Sex Location Account Attending Physician lEi Garrison/M PA [id number] Randall Molina MD SPEC NUM: [id number] RECD: 01/21/21 STATUS: DEBI VISHAL NUM: [id number] KENIA: 01/20/21- SUBM DR: Randall Molina MD ENTERED: 01/21/[address]: SPEC TYPE: Cytology DEPT: [facility] ENTERED BY: [id number] RECV BY: [id number] ORDERED: Pap Stain, Cyto Prepstain ORDERED: Pap Stain, Cyto Prepstain Pathological Diagnosis Urine, ThinPrep cytology: - Satisfactory for evaluation. - No evidence of high-grade urothelial cells identified. - Specimen consists of benign urothelial cells and rare inflammatory cells. Clinical Information History of bladder cancer Gross Description Received is 60ml yellow clear watery unfixed fluid said to have been obtained as urine. ThinPrep is prepared for microscopic examination.(ROWAN/antony) Microscopic Description One Papanicolaou stained ThinPrep slide has been examined. The microscopic findings support the above diagnosis. CPT Codes 97347 Specimen: [id number] Received: 01/21/21 Status: DEBI Rodgers Num: [id number] Spec Type: Cytology Subm Dr: Randall Molina MD Tissues: A URINECYTO (URINE-BLADDER WASH) Procedures: Pap Stain, Cyto Prepstain Patient: Eli Garrison [id number] (Continued) Signed (signature on file) Ryan Cr MD 01/23/[address] [facility] Vital Signs Date Time Vital Sign Value Performing Clinician Facility 02-17-2023 08:30-0500 Body height [facility] Other [facility] Other 02-17-2023 08:30-0500 Body mass index (BMI) [Ratio] 29.43 kg/m2 [facility] Other [facility] Other 02-17-2023 08:30-0500 Body temperature 97.3 [degF] [facility] Other [facility] Other 02-17-2023 08:30-0500 Body weight 91.72 kg [facility] Other [facility] Other 02-17-2023 08:30-0500 Diastolic blood pressure 65 mm[Hg] [facility] Other [facility] Other 02-17-2023 08:30-0500 Respiratory rate 14 /min [facility] Other [facility] Other 02-17-2023 08:30-0500 SaO2% (BldA) [Mass fraction] 96 % [facility] Other [facility] Other 02-17-2023 08:30-0500 Systolic blood pressure 110 mm[Hg] Antoni Funidelia Other [facility] Other 10-07-2022 09:00-0400 Body height Antoni Ball Other [facility] Other 10-07-2022 09:00-0400 Body mass index (BMI) [Ratio] 29.72 kg/m2 Antoni Ball Other [facility] Other 10-07-2022 09:00-0400 Body weight 92.63 kg Antoni Ball Other [facility] Other 10-07-2022 09:00-0400 Diastolic blood pressure 69 mm[Hg] Antoni Ball Other [facility] Other 10-07-2022 09:00-0400 Respiratory rate 12 /min Antoni Ball Other [facility] Other 10-07-2022 09:00-0400 Systolic blood pressure 138 mm[Hg] Antoni Ball Other [facility] Other 07-06-2022 09:30-0400 Body height Antoni Ball Other [facility] Other 07-06-2022 09:30-0400 Body mass index (BMI) [Ratio] 30.33 kg/m2 Antoni Ball Other [facility] Other 07-06-2022 09:30-0400 Body weight 94.53 kg Antoni Ball Other [facility] Other 07-06-2022 09:30-0400 Diastolic blood pressure 76 mm[Hg] Antoni Ball Other [facility] Other 07-06-2022 09:30-0400 Respiratory rate 12 /min Antoni Ball Other [facility] Other 07-06-2022 09:30-0400 Systolic blood pressure 118 mm[Hg] Antoni Cohn Other [facility] Other Encounters Encounter Date Encounter Type Care Provider Facility Start: 04-05-2023 End: 04-05-2023 ambulatory Antoni Cohn Other [facility] Other Start: 04-05-2023 Telephone encounter Antoni HENAO [facility] Start: 02-17-2023 End: 02-17-2023 ambulatory Antoni Cohn Other [facility] Other Start: 02-17-2023 Patient encounter procedure Antoni Cohn [facility] Start: 10-12-2022 End: 10-12-2022 ambulatory Antoni Cohn Other [facility] Other Start: 10-12-2022 Telephone encounter Antoni HENAO G [facility] Start: 10-07-2022 End: 10-07-2022 ambulatory Antoni Cohn Other [facility] Other Start: 10-07-2022 Office outpatient vi sit 25 minutes Antoni Cohn [facility] Start: 07-06-2022 End: 07-06-2022 ambulatory Antoni Lalit Other [facility] Other Start: 07-06-2022 Office outpatient vi sit 15 minutes Antoni Cohn [facility] Start: 05-18-2022 End: 05-19-2022 ambulatory Randall MOLINA Facility:[facility] Start: 02-28-2022 End: 03-01-[address] ANTONI COHN Facility:[facility] Start: 02-15-2022 Encounter for genera l adult medical examination without abnormal findings Antoni Cohn Other [facility] Other Start: 11-23-2021 End: 11-24-2021 ambulatory Randall MOLINA [place] [place]: 11-19-2021 End: 11-20-2021 ambulatory Randall MOLINA Facility:[facility] Start: 11-17-2021 ambulatory Randall MOLINA Facili ty:[facility] Start: 11-13-2021 End: 11-14-[address] ANTONI COHN Facility:[facility] Start: 11-11-2021 End: 11-12-[address] RANDALL MOLINA Facility:[facility] Start: 11-09-2021 Encounter for preprocedural laboratory examination DR RANDALL MOLINA [facility] Start: 11-08-2021 End: 11-09-[address] RANDALL MOLINA Facility:[facility] Start: 11-08-2021 End: 11-09-2021 Encounter for preprocedural laboratory examination DR RANDALL MOLINA Facility:[facility] Start: 11-03-2021 Encounter for preprocedural cardiovascular examination DR RANDALL MOLINA [facility] Start: 11-03-2021 Encounter for preprocedural laboratory examination DR RANDALL MOLINA [facility] Start: 11-01-2021 End: 11-02-[address] RANDALL MOLINA Facility:[facility] Start: 11-01-2021 End: 11-02-2021 Encounter for preprocedural cardiovascular examination DR RANDALL MOLINA Facility:[facility] Start: 10-27-2021 End: 10-28-2021 ambulatory Randall MOLINA Facility:[facility] Start: 10-12-2021 End: 10-13-[address] ANTONI COHN Facility:[facility] Start: 07-01-2021 End: 07-02-[address] ANTONI COHN Facility:[facility] Start: 03-10-2021 End: 03-11-[address] ANTONI COHN Facility:[facility] Start: 01-27-2019 Encounter for preprocedural cardiovascular examination Antoni Cohn Other [facility] Other Procedures Date Procedure Procedure Detail Performing Clinician Start: 11-01-[address] LAMIN MOLINA Comment on above: Performed By: #### B MP #### [facility] [address] [place] [address] Dr. Gil Smith Immunizations Immunization Date Immunization Notes Care Provider Fa cili 06-06-2017 diphtheria, tetanus toxoids and acellular pertussis vaccine, unspecified formulation Antoni Cohn Other [facility] Other 01-18-2017 diphtheria, tetanus toxoids and acellular pertussis vaccine, unspecified formulation Antoni Ball Other [facility] Other Payers Date Payer Category Payer Medicare [id number] 1958 Private Health Insurance [id number] 1950 Unknown [id number] 2.16.84 [id number] 1950 Unknown [id number] 2.16.84 [id number] 1950 Unknown [id number] 2.16.84 [id number] 1950 Unknown [id number] 2.16.84 [id number] 1950 Unknown [id number] 2.16.84 [id number] 1950 Unknown [id number] 2.16.84 [id number] 1950 Unknown [id number] 2.16.84 [id number] 1950 Unknown [id number] 2.16.84 [id number] 1950 Unknown [id number] 2.16.8 [id number] 1950 Unknown [id number] 2.16.8 [id number] 1950 Unknown [id number] 2.16.8 [id number] 1950 Unknown [id number] 2.16.8 [id number] 1950 Unknown [id number] 2.16.8 [id number] 1950 Unknown [id number] 2.16.8 [id number] Social History Date Type Detail Facility Sex Assigned At [place] [employer] Other Medical Equipment Procedure Code Equipment Code Equipment Origin al Text Equipment Identifier Dates Start: 10-07-2022 Evaluation note 04-05-2023 Note Date & Type Note Facility 04-05-2023 Evaluation note Encounter Date Diagnosis Assessment Notes Mar, Hyperlipemia (ICD-10 - E78.5) [facility] [employer] Other Evaluation note 02-17-2023 Note Date & Type Note Facility 02-17-2023 Evaluation note Encounter Date Diagnosis Assessment Notes Feb, Medicare annual wellness visit, subsequent (ICD-10 - Z00.00) Personalized health advice was given to the beneficiary including a written plan for screenings discussed and provided. Advanced care planning reviewed and/or information given as requested. Additional counseling was provided here today in regards to, [ ]. The above visit was performed by [ ], under direct supervision of [ ]. Document reviewed and amended by provider signed below. Feb, Primary hypertension (ICD-10 - I10) This patient is instructed to consume a healthy, low-fat, low-salt diet. They are also encouraged to continue exercise to achieve/maintain a normal BMI. Feb, Type 2 diabetes mellitus with hyperglycemia, without long-term current use of insulin (ICD-10 - E11.65) This patient is following a comprehensive diabetic treatment plan. They are checking their feet daily for calluses and nonhealing ulcers. They are being seen for yearly dilated eye examinations. Goals: SBP less than 130, LDL less than 100, FBS less than 140, A1C less than 7%. They are checking their BS daily, will which are reviewed at the office visit. Continue regular routine monitoring of A1C,] Microalbumin, Dilated eye exam and Foot exam Feb, Hypercholesteremia (ICD-10 - E78.00) Instructed on diet and exercise with continued statin therapy.Discussed the beneficial effects of lowering cholesterol in reducing the risk for cerebrovascular and cardiovascular disease. Feb, Calculus of gallbladder without cholecystitis without obstruction (ICD-10 - K80.20) Asymptomatic Feb, Adenomatous polyp of descending colon (ICD-10 - D12.4) Denies change in bowel habits as well as any melena or hematochezia. He is UTD w/ surveillance scopes. Feb, Transitional cell carcinoma determined by biopsy of bladder (ICD-10 - C67.9) He denies change in urinary habits. He denies hematuria. f/u Urology Feb, Primary osteoarthritis of right foot (ICD-10 - M19.071) Discussed conservative treatment. Offered referral to Podiatry but he declines Feb, Cigarette nicotine dependence in remission (ICD-10 - F17.211) Continue abstinence Offered LDCT but he declined Feb, Screening PSA (prostate specific antigen) (ICD-10 - Z12.5) Yearly AGUILA and PSA [facility] Other Evaluation note 10-07-2022 Note Date & Type Note Facility 10-07-2022 Evaluation note Encounter Date Diagnosis Assessment Notes Sep, Primary hypertension (ICD-10 - I10) This patient is instructed to consume a healthy, low-fat, low-salt diet. They are also encouraged to continue exercise to achieve/maintai n a normal BMI. Sep, Type 2 diabetes mellitus with hyperglycemia, without long-term current use of insulin (ICD-10 - E11.65) This patient is following a comprehensive diabetic treatment plan. They are checking their feet daily for calluses and nonhealing ulcers. They are being seen for yearly dilated eye examinations. Goals: SBP less than 130, LDL less than 100, FBS less than 140, AC and A1C less than 7%. They are checking their BS daily, will which are reviewed at the office visit. 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 Push fluids, avoid NSAIDs Yearly cystoscopy Sep, Primary osteoarthritis of right foot (ICD-10 - M19.071) s/p injections and full evaluation by Podiatry w/o improvement in symptoms Using creams, suggested ice/heat and Voltaren Gel Sep, Cigarette nicotine dependence in remission (ICD-10 - F17.211) Continue abstinence [facility] Other Evaluation note 07-06-2022 Note Date & Type Note Facility 07-06-2022 Evaluation note Encounter Date Diagnosis Assessment Notes Jun, Bilateral impacted cerumen (ICD-10 - H61.23) Cerumen removed w/o complications. Water picc and forceps utilized to clear EAC. TM's intact and translucent following the procedure Jun, Primary hypertension (ICD-10 - I10) This patient is instructed to consume a healthy, low-fat, low-salt diet. They are also encouraged to continue exercise to achieve/mainta in a normal BMI. [facility] Other History and physical note 11-23-2021 Note Date & Type Note Facility 11-23-2021 Note [id number] [facility] Clinical Note 11-23-2021 Note Date & Type Note Facility 11-23-2021 Note Custom Cystoscopy with Stent Removal ? Voiding after the procedure: there may be some pain, burning, urgency, frequency and blood tinged urine following the procedure. These symptoms usually resolve within 2-5 days. Drink the amount of fluid it takes to keep the urine pink to yellow or clear in color. Drinking enough water and fluids will help to ease any discomfort after your procedure. ? If you are having problems that seem out of the ordinary, please call. ? If unable to contact your physician and you feel it is an emergency, go to the nearest emergency room or call 911 ? Diet ? you may resume your normal diet. ? Activity ? you may resume your normal activities ? Call if you have a fever over 100 degrees. [facility] Evaluation note Note Date & Type Note Facility Evaluation note No Information [employer] Other History general Narrative - Reported Note Date & Type Note Facility History general Narrative - Reported Type Medical History Malignant melanoma of cheek Medical History Primary hypertension Medical History Controlled type 2 di abetes mellitus with hyperglycemia, without long-term current use of insulin Medical History Calculus of gallblad [place] without cholecystitis without obstruction Medical History Adenomatous polyp of descending colon Medical History Cigarette nicotine d ependence in remission Medical History Transitional cell ca rcinoma determined by biopsy of bladder Surgical History knee surgery 2009 Surgical History COLONOSCOPY 2020 Surgical History CYSTOSCOPY WITH BIOP SY OF BLADDER, TRANSURETHRAL RESECTION OF BLADDER TUMOR (TURBT), AND RETROGRADE PYELOGRAPHY 2019 Hospitalization History SEE SURGICAL HX [facility] Other History general Narrative - Reported Note Date & Type Note Facility History general Narrative - Reported Type Medical History Malignant melanoma of cheek Medical History Primary hypertension Medical History Controlled type 2 di abetes mellitus with hyperglycemia, without long-term current use of insulin Medical History Calculus of gallblad shel[place] without cholecystitis without obstruction Medical History Adenomatous polyp of descending colon Medical History Cigarette nicotine d ependence in remission Medical History Transitional cell ca rcinoma determined by biopsy of bladder Surgical History knee surgery 2009 Surgical History COLONOSCOPY, repeat 5 years 202 1 Surgical History CYSTOSCOPY WITH BIOP SY OF BLADDER, TRANSURETHRAL RESECTION OF BLADDER TUMOR (TURBT), AND RETROGRADE PYELOGRAPHY 2019 Hospitalization History SEE SURGICAL [facility] Other History general Narrative - Reported Note Date & Type Note Facility History general Narrative - Reported Type Medical History Malignant melanoma of cheek Medical History Primary hypertension Medical History Controlled type 2 di abetes mellitus with hyperglycemia, without long-term current use of insulin Medical History Calculus of gallblad shel[place] without cholecystitis without obstruction Medical History Adenomatous polyp of descending colon Medical History Cigarette nicotine d ependence in remission Medical History Transitional cell ca rcinoma determined by biopsy of bladder Surgical History knee surgery 2009 Surgical History COLONOSCOPY, (repeat 5 years) 2 021 Surgical History CYSTOSCOPY WITH BIOP SY OF BLADDER, TRANSURETHRAL RESECTION OF BLADDER TUMOR (TURBT), AND RETROGRADE PYELOGRAPHY 2019 Hospitalization History SEE SURGICAL HX [facility] Other Summary Purpose Family History No Family History Records FoundNo Family History Records FoundNo Family History Records Found Advance Directives No Advanced Directives Records FoundNo Advanced Directives Records FoundNo Advanced Directives Records Found Additional Source Comments (unrecognized sect ion and content) No Status Records FoundNo Status Records FoundNo Status Records Found INFORMATION SOURCE (unrecogn ized section and content) DATE CREATED AUTHOR 05/06/2021 [facility] DATE CREATED AUTHOR AUTHOR'S ORGANIZ ATION 03/09/2022 [facility] DATE CREATED AUTHOR AUTHOR'S ORGANIZ ATION 10/19/2022 [facility] REASON FOR VISIT (unrecogniz ed section and content) EAR CLEANING4 month Follow u pLab ResultswellnessRepeat Labs FOR RECORDS PERTAINING TO PATIENTS WHO ARE OR HAVE BEEN ENROLLED IN A CHEMICAL DEPENDENCY/SUBSTANCEABUSE PROGRAM, SOME INFORMATION MAY BE OMITTED. This clinical summary was aggregated from multiple sources. Caution should be exercised in using it in the provision of clinical care. This summary normalizes information from multiple sources, and as a consequence, information in this document may materially change the coding, format and clinical context of patient data. In addition, data may be omitted in some cases. CLINICAL DECISIONS SHOULD BE BASED ON THE PRIMARY CLINICAL RECORDS. [employer] [facility]. provides no warranty or guarantee of the accuracy or completeness of information in this document.
[2023-04-11 10:33] LABS: Alanine Aminotransferase 29 U/L (16-63); Chol HDL Ratio 3.6; Cholesterol 132 mg/dL (<=200); HDL Cholesterol 37 mg/dL (40-60); Triglycerides 191 mg/dL (<=150); VLDL CHOLESTEROL 38.2 mg/dL
== END 2023-04-11 09:44 | disposition home or self-care (01) ==
LOC: LAB 09:44
PROVIDERS: PCP Internal Medicine; Visit Provider Internal Medicine
DX: E78.5 Hyperlipidemia, unspecified (principal)
CPT/HCPCS: 36415; 80061; 84460

== ENCOUNTER 2023-10-19 11:09 | Outpatient (OUT) | payer MEDICARE, OTHER, SELFPAY ==
--- NOTE | 2023-10-19 11:34 | XR_ITS ---
The [address] [address] Patient Name: ELI GIFFORD MRN: [id number] date: 1950 Sex: M Assigned Patient Location: LAB Current Patient Location: Accession/Order Number: [id number] Exam Date: 10/19/2023 11:40 Report Date: 10/23/2023 13:37 At the request of: MELCHOR MONET Procedure: XR chest 2V EXAMINATION: XR chest 2V HISTORY: Cough R05.9 COMPARISON: 11/01/2021 TECHNIQUE: PA and lateral FINDINGS: LUNGS: No significant pulmonary parenchymal abnormalities. VASCULATURE: No increased pulmonary vasculature. PLEURA: No pneumothorax, effusion, or pleural thickening. CARDIAC: No cardiomegaly or cardiac silhouette abnormality. MEDIASTINUM: No visible mass or adenopathy. BONES: No fracture or visible bone lesion. OTHER: Negative. XR/XR chest 2V IMPRESSION: No acute cardiopulmonary process Electronically authenticated by: CHUCK HANNA Date: 10/23/2023 13:37
--- OUTSIDE RECORDS SUMMARY | 2023-10-19 11:34 | XMS_ITS | CCD ---
Author Organization [facility] CliniSymo Care Team Providers Care Medical Doctor Name Role Phone MACI, DR CAPUTO Admitting Unavailable MOLINA, DR CAPUTO Attending Unavailable BALL, DR ROCHE Primary Care Unavailable MOLINA, DR CAPUTO Consulting Unavailable CÉSAR, ALEKSANDAR Consulting [...] Care Unavailable MOLINA, DR CAPUTO Consulting Unavailable THOMAS, ANGELITA Consulting Unavailable NEFCY, DANAY Consulting Unavailable MOLINA, DR CAPUTO Admitting Unavailable MOLINA, DR CAPUTO Attending Unavailable BALL, DR ROCHE Primary Care Unavailable BALL, DR ROCHE Referring Unavailable MOLINA, DR CAPUTO Consulting Unavailable Lalit, Antoni Unavailable Randall MOLINA Attending Unavailable Randall MOLINA Attending Unavailable MLOINARandall Attending Unavailable MOLINARandall Admitting Unavailable Allergies Allergy Classification Reported Allergen(s) Allergy Type Date of Onset Reaction(s) Facility (2 sources) patient allergy list reviewed by nurse or physicia Propensity to adverse reactions 8 Comment:Done Mitro Other (1 source) No Known Medication Allergies; Translations: [No Known Medication Allergies] Propensity to adverse reactions (disorder) [facility] Repository Medications Current Medications Medication Drug Class(es) Dates Sig (Normalized) Sig (Original) atorvastatin 10 mg oral tablet (2 sources) HMG-CoA Reductase Inhibitor Start: 02-22-2023 take 1 tablet by mouth once daily in the evening Atorvastatin Calcium 10 MG 1 tablet Orally Once a day, in evening for 90 days Feb, Active lisinopril 20 mg oral tablet (6 sources) Angiotensin Converting Enzyme Inhibitor take 1 tablet by mouth once daily Lisinopril 20 MG TAKE 1 TABLET BY MOUTH DAILY Active metFORMIN hydrochloride 1000 mg oral tablet (6 sources) Biguanide take 1 tablet by mouth once daily metFORMIN HCl 1000 MG TAKE 1 TABLET BY MOUTH DAILY Active One Touch Glucometer (5 sources) One Touch Glucom eter Use to test home BS transcutaneous Use to test home BS qd for 365 days Active Problems Active Problems Problem Classification Problem Date Documented Date Episodic/Chronic Biliary tract disease (10 sources) Cholelithiasis without obstruction; Translations: [Calculus of gallbladder without cholecystitis without obstruction] Onset: 02-15-2022 Episodic Cancer of bladder (12 sources) Malignant neoplasm of bladder, unspecified; 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] Onset: 01-11-2018 Chronic Chronic kidney disease (1 source) Chronic kidney disease stage 3; Translations: [Chronic kidney disease, stage 3 unspecified] Onset: 02-07-2018 Chronic Chronic kidney disease (2 sources) Chronic kidney disease; Translations: [Chronic kidney disease, stage 3 unspecified] Onset: 02-07-2018 Chronic obstructive pulmonary disease and bronchiectasis (2 sources) Mucopurulent chronic bronchitis; Translations: [Mucopurulent chronic bronchitis] Chronic Diabetes mellitus with complications (17 sources) Type 2 diabetes mellitus with hyperglycemia; Translations: [Type 2 diabetes mellitus] Onset: 04-11-2014 Chronic Diabetes mellitus without complication (4 sources) Type 2 diabetes mellitus without complications; Translations: [Type 2 diabetes mellitus without complication] Onset: 10-14-2013 Chronic Diseases of mouth; excluding dental (2 sources) Hypertrophy of tongue papillae; Translations: [Hypertrophy of tongue papillae] Episodic Disorders of lipid metabolism (11 sources) Hypercholesterolemia; Translations: [Pure hypercholesterolemia, unspecified] Onset: 12-26-2014 Chronic Essential hypertension (15 sources) Essential (primary) hypertension; Translations: [Essential hypertension] Onset: 11-08-2013 Chronic Hyperplasia of prostate (5 sources) Benign prostatic hyperplasia with lower urinary tract symptoms; Translations: [Benign prostatic hyperplasia without lower urinary tract symptoms] Onset: 11-03-2021 Chronic Hypertension with complications and secondary hypertension (1 source) Benign hypertensive renal disease; Translations: [Hypertensive chronic kidney disease, benign, with chronic kidney disease stage I through stage IV, or unspecified] Onset: 09-10-2018 Chronic Melanomas of skin (4 sources) Malignant melanoma of skin of face; Translations: [Malignant melanoma of cheek (external)] Onset: 03-13-2011 Chronic Nutritional deficiencies (3 sources) Vitamin D deficiency, unspecified; Translations: [Vitamin D deficiency] Onset: 03-17-2021 Chronic Osteoarthritis (9 sources) Osteoarthritis of right foot; Translations: [Primary osteoarthritis, right ankle and foot] Chronic Other aftercare (2 sources) 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; Translations: [OTH JAIL CURRENT DRUG THERAPY] Onset: 11-17-2021 Episodic Other aftercare (1 source) Long-term current use of drug therapy; Translations: [Other nursing home (current) drug therapy] Episodic Other and unspecified benign neoplasm (6 sources) Adenomatous polyp of colon ; Translations: [Benign neoplasm of descending colon] Episodic Other and unspecified benign neoplasm (1 source) Personal history of colonic polyps; Translations: [Personal history of colonic polyps] Episodic Other and unspecified benign neoplasm (2 sources) Benign neoplasm of colon; Translations: [Benign neoplasm of colon] Episodic Other and unspecified benign neoplasm (1 source) History of polyp of colon; Translations: [Personal history of colonic polyps] Episodic Other injuries and conditions due to external causes (1 source) History of falling; Translations: [History of falling] Episodic Other injuries and conditions due to external causes (1 source) History of fall; Translations: [History of falling] Episodic Other non-epithelial cancer of skin (5 sources) Personal history of other malignant neoplasm of skin; Translations: [Basal cell carcinoma of skin, unspecified] Onset: 11-19-2021 Episodic Other non-traumatic joint disorders (1 source) Lower limb joint arthritis; Translations: [Osteoarthrosis, unspecified whether generalized or localized, lower leg] Onset: 11-08-2013 Chronic Other nutritional; endocrine; and metabolic disorders (1 source) Obesity, unspecified; Translations: [Obesity, unspecified] Chronic Other nutritional; endocrine; and metabolic disorders (1 source) Obesity; Translations: [Obesity, unspecified] Chronic Other upper respiratory infections (2 sources) Chronic maxillary sinusitis; Translations: [Chronic maxillary sinusitis] Onset: 04-06-2016 Chronic Residual codes; unclassified (1 source) Family history of malignant neoplasm of digestive organs; Translations: [Family history of malignant neoplasm of digestive organs] Episodic Residual codes; unclassified (1 source) Family history of malignant neoplasm of gastrointestinal tract; Translations: [Family history of malignant neoplasm of digestive organs] Episodic Screening and history of mental health and substance abuse codes (1 source) Encounter for screening for depression; Translations: [Encounter for screening for depression] Episodic Spondylosis; intervertebral disc disorders; other back problems (2 sources) Spondylosis without myelopathy or radiculopathy, cervical region; Translations: [Cervical spondylosis without myelopathy] Onset: 03-19-2014 Chronic Substance-related disorders (15 sources) Nicotine dependence, cigarettes, uncomplicated; Translations: [Tobacco dependence in remission] Onset: 06-16-2015 Chronic Unclassified (1 source) CONTACT W/AND (SUSP) EXPOS COVID-19; Translations: [CONTACT W/AND (SUSP) EXPOS COVID-19] Onset: 11-09-2021 Unclassified (1 source) Encounter for preprocedural respiratory examination; Translations: [Encounter for preprocedural respiratory examination] Onset: 11-08-2013 Unclassified (1 source) Low back pain, unspecified; Translations: [Low back pain, unspecified] Onset: 05-28-2018 Unclassified (1 source) Identification of preoperative respiratory status; Translations: [Encounter for preprocedural respiratory examination] Onset: 11-08-2013 Urinary tract infections (1 source) Other chronic cystitis without hematuria; Translations: [OTH CHRONIC CYSTITIS W/O HEMATURIA] Onset: 11-19-2021 Chronic Past or Other Problems Problem Classification Problem Date Documented Da te Episodic/Chronic Abdominal pain (4 sources) Right lower quadrant pain; Translations: [RIGHT LOWER QUADRANT PAIN] Onset: 11-13-2021 Episodic Bacterial infection; unspecified site (1 source) Bacterial infectious disease; Translations: [Bacterial infection, unspecified, in conditions classified elsewhere and of unspecified site] Onset: 04-06-2016 Episodic Cancer of bladder (1 source) Personal history of malignant neoplasm of bladder; Translations: [PERSONAL HX MALIG NEOPLASM BLADDER] Onset: 11-19-2021 Episodic Diabetes mellitus with complications (2 sources) Diabetes mellitus with complications; Translations: [Diabetes mellitus without mention of complication, type II or unspecified type, not stated as uncontrolled] Onset: 11-08-2013 Diabetes mellitus without complication (2 sources) Hyperglycemia, unspecified; Translations: [Hyperglycemia] Onset: 10-14-2013 Episodic Essential hypertension (1 source) Essential hypertension; Translations: [Essential hypertension, benign] Onset: 11-08-2013 Genitourinary symptoms and ill-defined conditions (1 source) Hematuria, unspecified; Translations: [HEMATURIA UNSPECIFIED] Onset: 11-03-2021 Episodic Malaise and fatigue (2 sources) Other malaise and fatigue; Translations: [Malaise and fatigue] Onset: 10-14-2013 Episodic Neoplasms of unspecified nature or uncertain behavior (4 sources) Neoplasm of unspecified behavior of bladder; Translations: [NEOPLASM UNS BEHAVIOR OF BLADDER] Onset: 11-11-2021 Episodic Nonspecific chest pain (4 sources) Other chest pain; Translations: [Chest pain, unspecified] Resolved: 11-16-2020 Episodic Open wounds of extremities (4 sources) Laceration with foreign body of left index finger with damage to nail, subsequent encounter; Translations: [Laceration with foreign body of left index finger with damage to nail, initial encounter] Onset: 06-07-2017 Episodic Other aftercare (1 source) 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; Translations: [TORCH BRAZER USE ORAL HYPOGLYCEMIC DX] Onset: 11-17-2021 Episodic Other and unspecified benign neoplasm (3 sources) Benign neoplasm of descending colon; Translations: [Benign neoplasm of descending colon] Resolved: 09-30-2021 Episodic Other and unspecified benign neoplasm (1 source) Benign neoplasm of descending colon; Translations: [Benign neoplasm of descending colon] Resolved: 09-30-2021 Episodic Other connective tissue disease (1 source) Neuralgia and neuritis, unspecified; Translations: [Neuralgia and neuritis, unspecified] Resolved: 07-31-2019 Episodic Other connective tissue disease (1 source) Neuralgia; Translations: [Neuralgia and neuritis, unspecified] Resolved: 07-31-2019 [...] Episodic Other ear and sense organ disorders (3 sources) Impacted cerumen; Translations: [Impacted cerumen, bilateral] Onset: 04-06-2016 Resolved: 11-16-2020 Episodic Other ear and sense organ disorders (1 source) Acute contact otitis externa; Translations: [Acute reactive otitis externa, bilateral] Resolved: 09-09-2019 Episodic Other infections; including parasitic (1 source) Personal history of other infectious and parasitic diseases; Translations: [PERSONAL HX OTH INF AND PARASITIC DZ] Onset: 11-03-2021 Episodic Other lower respiratory disease (1 source) Cough; Translations: [Cough] Onset: 10-14-2015 Episodic Other lower respiratory disease (1 source) Shortness of breath; Translations: [Shortness of breath] Resolved: 09-09-2019 Episodic Other lower respiratory disease (1 source) Cough; Translations: [Cough] Onset: 10-14-2015 Episodic Other lower respiratory disease (1 source) Dyspnea; Translations: [Shortness of breath] Resolved: 09-09-2019 Episodic Other nervous system disorders (1 source) Paresthesia of skin; Translations: [Paresthesia of skin] Onset: 03-19-2014 Episodic Other nervous system disorders (1 source) Paresthesia; Translations: [Paresthesia of skin] Onset: 03-19-2014 Episodic Other nutritional; endocrine; and metabolic disorders (1 source) Overweight; Translations: [Overweight] Resolved: 02-15-2022 Episodic Other nutritional; endocrine; and metabolic disorders (1 source) Overweight; Translations: [Overweight] Resolved: 02-15-2022 Episodic Other nutritional; endocrine; and metabolic disorders (2 sources) Body mass index 25-29 - overweight; Translations: [Body mass index 28.0-28.9, adult] Onset: 06-16-2015 Episodic Other screening for suspected conditions (not mental disorders or infectious disease) (5 sources) Encounter for screening for malignant neoplasm of prostate; Translations: [Elevated prostate specific antigen [PSA]] Onset: 06-11-2018 Episodic Residual codes; unclassified (1 source) Tobacco use; Translations: [Tobacco use] Onset: 06-16-2015 Episodic Residual codes; unclassified (2 sources) Tobacco user; Translations: [Tobacco use] Onset: 11-08-2013 Episodic Spondylosis; intervertebral disc disorders; other back problems (3 sources) Radiculopathy, cervical region; Translations: [Low back pain] Onset: 04-11-2014 Episodic Sprains and strains (4 sources) Strain of muscle, fascia and tendon [...] (current) use of other medications] Onset: 01-17-2017 Unclassified (1 source) Long-term current use of drug therapy; Translations: [Long-term (current) use of other medications] Onset: 01-17-2017 Results Test Name Value Interpretation Reference Range Facility [facility] Urine Cyt o ( Labs)on 06-07-2023 UVF[facility] & UC Diagnosis Info Invalid Interpretation Code [facility] Comment on above: Result Comment: A:Ur ine,Bladder Wash:Bladder Wash Diagnosis Summary - No evidence of high grade urothelial carcinoma identified. Adequate cellularity for evaluation. Diagnosis Summary - The [facility] FISH study detected normal copy numbers for chromosomes 3, 7, 17, and 9p21. 100 cells were analyzed in this evaluation. No evidence of aneuploidy for chromosomes 3, 7, or 17 or deletion of the 9p21 locus was found in cells present in this specimen. This test does not rule out the possibility of a low grade non-invasive papillary urothelial carcinoma. These findings should be correlated with cytology and cystoscopy results.* CPT 80948, 87672. Microscopic Notes - Microscopic Notes - Abnormal cells 9p21 deletions: Abnormal cells aneploid events: Total cells analyzed: 100 Hematuria: Gross Description Site ID:A color Yellow fixative Alcohol Received 100 mls of clear yellow fluid with the patient's name and, Bladder Wash on the vial. Electronically signed by : on: 06/07/2023 11:05:10 Performed By: #### 1 [id number] #### [facility] [address] [place] [address] Consent for Procedure/Surger yon 06-01-2023 Consent for Procedure/Surgery [id number] #1.00TIFF [facility] Lab Reportson 06-01-2023 Lab Reports [id number] #1.00TIFF [facility] Ambulatory Visit Summaryon 0 05-31-2023 Ambulatory Visit Summary ELI GARRISON :1950 Visit Date:05/31/2023 Ambulatory Visit Instructions Your Diagnosis Hx of bladder cancer Lesion of bladder Elevated PSA Enlarged prostate with urinary obstruction Your Care Team Attending Physician - Randall MOLINA MD Primary Care Physician - ANTONI COHN DO This Is Your Medications List Contact prescribing physician if questions or concerns acetaminophen-hydroc odone ([place] 325 mg-5 mg oral tablet) ciprofloxacin (Cipro 500 mg Tab) lisinopril (lisinopril 20 mg Tab) metformin (metformin 1000 mg Tab) Procedures Performed Cystoscopy (05/31/2023), Cystoscopy (05/18/2022), Cystoscopy (10/27/2021), Cystoscopy (07/28/2021), Cystoscopy (04/21/2021), Cystoscopy (01/20/2021), Cystoscopy (10/14/2020), Cystoscopy (06/17/2020), Cystoscopy (03/03/2020), Ablation of neoplasm of urinary bladder using laser (11/19/2019), Cystoscope (11/05/2019), Cystoscopy (07/30/2019), Cystoscope (02/20/2019), Cystoscopy (11/27/2018), Cystoscopy (08/21/2018), TURP - Transurethral resection of prostate (02/15/2018), Cystoscopy and transurethral resection of bladder tumour (01/25/2018), Urodynamics (01/16/2018), Colonoscopy, Knee replacement. Discharge Vitals Temperature (Temporal Artery) 36.8 ?C Heart Rate (Peripheral) 88 Respiratory Rate 18 Blood Pressure 137/84 Height 175 cm Height 69 in Weight 88 kg Weight 193.6 lb BMI 28.73 What to do next You Need to Schedule the Following Appointments Follow Up with MACI BLAKE, Randall Garcia, URL When: Where: [facility] [address] , [place] [address]- Medications What How Much When Why Instructions Unchanged acetaminophen-hydroc odone ([place] 325 mg-5 mg oral tablet) 1 Tablets By Mouth 2 times a day as needed for as needed for pain Bladder cancer Contact prescribing physician if questions or concerns Unchanged ciprofloxacin (Cipro 500 mg Tab) 1 Tablets By Mouth Every day Take 1 tablet the day before the procedure and 1 tablet after the procedure Contact prescribing physician if questions or concerns Unchanged lisinopril (lisinopril 20 mg Tab) Contact prescribing physician if questions or concerns Unchanged metformin (metformin 1000 mg Tab) 1 Tablets By Mouth 2 times a day Contact prescribing physician if questions or concerns Medications and Immunizations Administered Given lidocaine Top 2% Gel w/Appl 6 mL, 6 mL, Topical. For: Hx of bladder cancer, Enlarged prostate with urinary obstruction Allergies No Known Medication Allergies Problems Ongoing - Any problem that you are currently receiving treatment for. Bladder cancer BMI 28.0-28.9,adult Diabetes Elevated PSA Enlarged prostate with urinary obstruction History of skin cancer History of urinary retention Hx of bladder cancer Hx of hepatitis Hypertension Lesion of bladder Smoker Patient Survey You may receive a survey via text or e-mail asking about your office visit. Please share your experience with us by completing your survey. We appreciate your feedback and thank you for choosing us for your care. Education Materials Cancer Screening for Men A cancer screening is a test or exam that checks for cancer. Your health care provider will recommend specific cancer screenings based on your age, medical history (including risk factors), and family history of cancer. Work with your health care provider to create a cancer screening schedule that protects your health. Who should have screening? All men should be considered for screening of certain cancers, including colorectal cancer, prostate cancer, lung cancer, and skin cancer. Your health care provider may recommend screenings for other types of cancer if: ? You had cancer before. ? You have a family member with cancer. ? You have abnormal genes that could increase the risk of cancer. ? You have risk factors for certain cancers, such as current or past use of tobacco products, or being overweight. When you should be screened for cancer depends on: ? Your age. ? Your medical history and your family's medical history. ? Certain lifestyle factors, such as smoking or other use of tobacco products. ? Environmental exposure, such as to asbestos. How is screening done? Colorectal cancer All adults should have screenings starting at age 45 and continuing until age 75. Your health care provider may recommend screening before age 45. You will have tests every 1?10 years, depending on your results and the type of screening test. People at increased risk should start screening at an earlier age. Talk with your health care provider about which screening test is right for you and how often you should be screened. Colorectal cancer screening looks for cancer or for growths called polyps that often form before cancer starts. Tests to look for cancer or polyps include: ? Colonoscopy or flexible sigmoidoscopy. For these procedures, a flexible tube (more content not included)... Normal [facility] Patient Educationon 05-31-19 Patient Education Oncology Cancer Screening for Men A cancer screening is a test or exam that checks for cancer. Your health care provider will recommend specific cancer screenings based on your age, medical history (including risk factors), and family history of cancer. Work with your health care provider to create a cancer screening schedule that protects your health. Who should have screening? All men should be considered for screening of certain cancers, including colorectal cancer, prostate cancer, lung cancer, and skin cancer. Your health care provider may recommend screenings for other types of cancer if: ? You had cancer before. ? You have a family member with cancer. ? You have abnormal genes that could increase the risk of cancer. ? You have risk factors for certain cancers, such as current or past use of tobacco products, or being overweight. When you should be screened for cancer depends on: ? Your age. ? Your medical history and your family's medical history. ? Certain lifestyle factors, such as smoking or other use of tobacco products. ? Environmental exposure, such as to asbestos. How is screening done? Colorectal cancer All adults should have screenings starting at age 45 and continuing until age 75. Your health care provider may recommend screening before age 45. You will have tests every 1?10 years, depending on your results and the type of screening test. People at increased risk should start screening at an earlier age. Talk with your health care provider about [...] fecal occult blood test (FOBT). This test can find blood in stool. It can be done at home with a kit. ? Fecal immunochemical test (FIT). This test can find blood in stool. For this test, you will need to collect stool samples at home. ? Stool DNA test. This test looks for blood in stool and any changes in DNA that can lead to colon cancer. For this test, you will need to collect a stool sample at home and send it to a lab. Prostate cancer Prostate cancer screening for men with average risk may start at age 50. Men with risk factors may need to be screened earlier, at ages 40?45. Talk with your health care provider about whether screening is right for you and, if so, how often you should be screened. Prostate cancer screening is done with blood tests and a digital rectal exam. During this exam, a health care provider uses a gloved finger to check prostate size. You may need to be screened for prostate cancer if: ? You have risk factors for prostate cancer, such as being or having a close family member with prostate cancer. ? You have had gene changes or a genetic condition that was passed on to you from a parent (inherited). These gene changes or genetic conditions include BRCA1 or BRCA2 gene mutations or Jones syndrome. ? You have symptoms of prostate cancer, such as problems urinating or problems getting or keeping an erection (erectile dysfunction). When you have been screened for prostate cancer, future screening may be recommended based on the results of your blood tests. Lung cancer Lung cancer screening is done with a CT scan that looks for abnormal changes in the lungs. Discuss lung cancer screening with your health care provider if you are 50?80 years old and if any of the following apply to you: ? You currently smoke. ? You used to smoke heavily. ? You have a smoking history of 1 pack of cigarettes a day for 20 years or 2 packs a day for 10 years. ? You have quit smoking within the past 15 years. You may need to be screened every year if you smoke heavily or if you used to smoke. Skin cancer Skin cancer screening is done by checking the skin for unusual moles or spots and any changes in existing moles. Your health care provider should check your skin for signs of skin cancer at every physical exam. You should check your skin every month and tell your health care provider right away if anything looks unusual. Men with a [id number] risk for skin cancer may want to see a skin former (glassware maker demonstrator) for an annual body check. What are the benefits of screening? Cancer screening is done to look for cancer in the very early stages, before it spreads and becomes harder to treat and before you would start to notice symptoms. Finding cancer early improves the chances of successful treatment. It ma (more content not included)... Normal [facility] Fish and Urine Cyt o ([facility])on 05-31-2023 [facility] Method of Extraction Bladder Wash Normal [facility] Comment on above: Performed By: #### 1 [id number] #### [facility] [address] [place] [address] [facility] Number of Jars 1 Invalid Interpretation Code [facility] Comment on above: Performed By: #### 1 [id number] #### [facility] [address] [place] [address] [facility] Specimen Bladder Wash Normal [facility] Comment on above: Performed By: #### 1 [id number] #### [facility] [address] [place] [address] [facility] Type of Service Technical Only Normal [facility] Comment on above: Performed By: #### 1 [id number] #### [facility] [address] [place] [address] Urology Office/Clinic Noteon 05-31-2023 Urology Office/Clinic Note Chief Complaint personal hx of bladder cancer HPI Staff Cysto ABX TAKEN, need fish/cytol History of Present Illness Tests reviewed: reviewed PSA I have reviewed the previous health record information and history for this patient from Dr. Molina. I have reviewed and verified the staff HPI to be accurate for this encounter. There have been no associated fever, chills, flank pain, or blood in the urine. Denies any urinary infections since last encounter. Review of Systems PHQ Score Initial Depression Screen Score: 0 SCORE ROS - Provider Constitutional: denies weight loss, denies hot flashes. Eyes: denies eye problems. Gastrointestinal: denies nausea, denies vomiting. Cardiovascular: denies chest pain or angina. Integumentary: no dryness Musculoskeletal: denies musculoskeletal symptoms. ENMT: denies otolaryngeal symptoms. Respiratory: no shortness of breath. Heme/Lymph: denies easy bleeding tendency, denies easy bruising tendency. Psychiatric: no confusion, no anxiety. Genitourinary: See HPI. Physical Exam Vitals & Measurements T: 36.8 ?C(Temporal Artery) HR: 88(Peripheral) RR: 18 BP: 137/84 HT: 69 in HT: 175 cm WT: 88 kg WT: 193.6 lb BMI: 28.73 General [...] The Prostatic Urethra is: _Open. The Bladder: _On the Left wall there are two tiny vascular abnormalities with possible start of tumor adjacent, Trabeculated: Mild (1) The Ureteral orifices: Show efflux of clear urine Specimens Removed: Bladder wash sent for FISH and Cytology test Removal: Cystoscope is removed. The patient tolerated it well. Postoperative Information Patient is discharged home with antibiotic coverage. Follow up arranged. Assessment/Plan 1. Hx of bladder cancer (Z85.51: Personal history of malignant neoplasm of bladder) Original TURBT 01/25/18 - Noninvasive low-grade papillary urothelial carcinoma. Cysto, laser of bladder tumor 11/19/19 - Noninvasive low-grade papillary urothelial carcinoma. TURBT 11/11/21 - Chronic cystitis glandularis. Pt had IO cysto to check for bladder tumor recurrence without complications today. Pt took prophylactic abx prior to procedure. Will send bladder wash specimen for FISH/cytol and call pt if positive. Follow up 6 mos surveillance cysto/bt ck/FISH/cytol or sooner if needed. Pt understands and agrees with plan. 2. Lesion of bladder (N32.9: Bladder disorder, unspecified) See procedure section. 3. Elevated PSA (R97.20: Elevated prostate specific antigen [PSA]) PSA: 05/17/19 - 1.82 11/01/21 - 1.77 02/20/23 - 3.22 Most recent PSA increased from prior. Will monitor more frequently. -PSA F&T in 6 mos. 4. Enlarged prostate with urinary obstruction (N40.1: Benign prostatic hyperplasia with lower urinary tract symptoms) S/p TURP 02/2018. Not taking any BPH or bladder meds. Follow-up With When Contact Information MACI BLAKE, Randall Garcia, [facility] [address], [place] [address]- Additional Instructions: 6 mos cysto, PSA FT Patient Education Cancer Screening for Men I, Irma Vance, personally scribed for Dr. Molina on 05/31/2023 07:58:29. . Documentation recorded by the scribe, Irma Vance, accurately reflects the services(s) I performed and decisions made by me. Authenticated by Dr. Molina on 05/31/2023 08:00:52. Problem List/Past Medical History Ongoing Bladder cancer BMI 28.0-28.9,adult Diabetes Elevated PSA Enlarged prostate with urinary obstruction History of skin cancer History of urinary retention Hx of bladder cancer Hx of hepatitis Hypertension Lesion of bladder Smoker Historical No qualifying data Procedure/Surgical History Cystoscopy (05/31/2023), Cystoscopy (05/18/2022), Cystoscopy (10/27/2021), Cystoscopy (07/28/2021), Cystoscopy (04/21/2021), Cystoscopy (01/20/2021), Cystoscopy (10/14/2020), Cystoscopy (06/17/2020), Cystoscopy (03/03/2020), Ablation of neoplasm of urinary bladder using laser (11/19/2019), Cystoscope (11/05/2019), Cystoscopy (07/30/2019), Cystoscope (02/20/2019), Cystoscopy (11/27/2018), Cystoscopy (08/21/2018), TURP - Transurethral resection of prostate (02/15/2018), Cysto (more content not included)... Normal [facility] Comment on above: Result Comment: Elec tronically Signed By: Randall MOLINA MD\.br\Date and Time Signed: 05/31/23 08:00 EDT\.br\Electronically Co-Signed By: Irma Vance\.br\Date and Time Co-Signed: 05/31/23 07:58 EDT GLYCOHEMOGLOBIN A1Con 2021 ADA RECOMMENDATION SEE BELOW Normal [facility] Comment on above: Result Comment: ADA RECOMMENDED LIMIT 4.0 - 6.0 ADA THERAPEUTIC TARGET < 7.0 ACTION SUGGESTED > 7.0 Performed By: #### A 1C #### [facility] [address] [address] [address] Gil Smith Glucose [Mass/Vol] 137 mg/dL Normal [facility] Comment on above: Performed By: #### A 1C #### [facility] [address] [address] [address] Gil Smith HbA1c (Bld) [Mass fraction] 6.4 % Critically high 4.5-6.2 [facility] Comment on above: Performed By: #### A 1C #### [facility] [address] [address] [address] Gil Smith MICROALBUMIN, RAND URon - mALB <1.3 Normal <=30.0 [facility] Comment on above: Performed By: #### B MP #### [facility] [address] ABD/PELVIS WO CONon 11-14 CT ABD/PELVIS [...] HALLEY RAMIRES Date: 2021-11-13 22:56 Normal [facility] CULTURE URINEon 11-14-2021 CULTURE URINE Culture Observations: NO GROWTH. Normal [facility] Comment on above: Performed By: #### B MP #### [facility] [address] [place] [address] Dr. Gil Smith ER URINE PROFILEon 2 Bilirubin Ql (U) MODERATE Abnormal NEGATIVE [facility] Comment on above: Performed By: #### A 1C #### [facility] [address] [place] [address] Dr. Gil Smith Clarity (U) CLEAR Normal CLEAR [facility] Comment on above: Performed By: #### A 1C #### [facility] [address] [place] [address] Dr. Gil Smith Color (U) RED Abnormal YELLOW [facility] Comment on above: Performed By: #### A 1C #### [facility] [address] [place] [address] Dr. Gil DEJESUS A micrscopic examination will be performed if indicated. Normal [facility] Comment on above: Performed By: #### A 1C #### [facility] [address] [place] [address] Dr. Gil Smith Glucose Ql (U) Negative Normal NEGATIVE [facility] Comment on above: Performed By: #### A 1C #### [facility] [address] [place] [address] Dr. Gil Smith Hemoglobin Ql (U) LARGE Abnormal NEGATIVE [facility] Comment on above: Performed By: #### A 1C #### [facility] [address] [place] [address] Dr. Gil Smith Ketones Ql (U) 40 mg/dl Abnormal NEGATIVE [facility] Comment on above: Performed By: #### A 1C #### [facility] [address] [place] [address] Dr. Gil Smith LEUKOCYTES MODERATE Abnormal NEGATIVE [facility] Comment on above: Performed By: #### A 1C #### [facility] [address] [place] [address] Dr. Gil Smith Nitrite Ql (U) Positive Abnormal NEGATIVE [facility] Comment on above: Performed By: #### A 1C #### [facility] [address] [place] [address] Dr. Gil Smith pH (U) 8.5 [pH] Normal 5-9 [facility] Comment on above: Performed By: #### A 1C #### [facility] [address] [place] [address] Dr. Gil Smith Protein (U) [Mass/Vol] 100 mg/dL Abnormal NEGATIVE/ TRACE [facility] Comment on above: Performed By: #### A 1C #### [facility] [address] [place] [address] Dr. Gil Smith SPEC GRAVITY 1.015 Normal 1.005-<=1.025 [facility] Comment on above: Performed By: #### A 1C #### [facility] [address] [place] [address] Dr. Gil Smith UR MICRO IND INDICATED Normal [facility] Comment on above: Performed By: #### A 1C #### [facility] [address] [place] [address] Dr. Gil Smith Urobilinogen Qn (U) 2.0 {Ross'U}/dL Abnormal 0.2 - 1. 0 [facility] Comment on above: Performed By: #### A 1C #### [facility] [address] [place] [address] Dr. Gil Smith URINE MICROSCOPIC ONLYon BACTERIA SMALL Abnormal NONE SEEN [facility] Comment on above: Result Comment: Prev iously reported as: MODERATE On 11/13/2021 23:51 By MH01 Performed By: #### A 1C #### [facility] [address] [place] [address] Dr. Gil Smith Bacteria identified Cx Nom (U) INDICATED Normal [facility] Comment on above: Performed By: #### A 1C #### [facility] [address] [place] [address] Dr. Gil Smith CAST NONE SEEN Normal NONE SEEN [facility] Comment on above: Performed By: #### A 1C #### [facility] [address] [place] [address] Dr. Gil Smith Crystals LM Nom (Urine sed) NONE SEEN Normal NONE SEEN [facility] Comment on above: Performed By: #### A 1C #### [facility] [address] [place] [address] Dr. Gil Smith Epithelial cells LM Ql (Urine sed) RARE Normal NONE SEEN /RARE [facility] Comment on above: Performed By: #### A 1C #### [facility] [address] [place] [address] Dr. Gil Smith MUCOUS NONE SEEN Normal NONE SEEN [facility] Comment on above: Performed By: #### A 1C #### [facility] [address] [place] [address] Dr. Gil Smith RBC 0-2 Normal 0-2 [facility] Comment on above: Result Comment: Prev iously reported as: >100 On 11/13/2021 23:51 By 01 Performed By: #### A 1C #### [facility] [address] [place] [address] Dr. Gil Smith WBC 2-5 Abnormal NONE SEEN [facility] Comment on above: Performed By: #### A 1C #### [facility] [address] [place] [address] Dr. Gil Smith CBC AUTO DIFFon 11-13-2021 BASO # 0.0 103/ul Normal 0.0-0.1 [facility] Comment on above: Performed By: #### A 1C #### [facility] [address] [place] [address] Dr. Gil Smith Basophils/100 WBC (Bld) 0.2 % Normal 0.2-2.0 [facility] Comment on above: Performed By: #### A 1C #### [facility] [address] [place] [address] Dr. Gil Smith EO # 0.2 103/ul Normal 0.0-0.7 [facility] Comment on above: Performed By: #### A 1C #### [facility] [address] [place] [address] Dr. Gil Smith Eosinophils/100 WBC (Bld) 1.8 % Normal 0.9-7.0 [facility] Comment on above: Performed By: #### A 1C #### [facility] [address] [place] [address] Dr. Gil Smith Erythrocyte distribution width (RBC) [Ratio] 11.9 % Normal 11.0-15.0 [facility] Comment on above: Performed By: #### A 1C #### [facility] [address] [place] [address] Dr. Gil Smith Hematocrit (Bld) [Volume fraction] 44.5 % Normal 42.0-54.0 [facility] Comment on above: Performed By: #### A 1C #### [facility] [address] [place] [address] Dr. Gil Smith Hemoglobin (Bld) [Mass/Vol] 15.6 g/dL Normal 14.0-18.0 [facility] Comment on above: Performed By: #### A 1C #### [facility] [address] [place] [address] Dr. Gil Smith IG # 0.05 10e3/ul Critically high 0.00-0.03 [facility] Comment on above: Performed By: #### A 1C #### [facility] [address] [place] [address] Dr. Gil Smith IG % 0.4 % Normal 0.0-0.5 [facility] Comment on above: Performed By: #### A 1C #### [facility] [address] [place] [address] Dr. Gil Smith LYMPH # 2.1 103/ul Normal 1.2-3.8 [facility] Comment on above: Performed By: #### A 1C #### [facility] [address] [place] [address] Dr. Gil Smith Lymphocytes/100 WBC (Bld) 16.3 % Critically low 20.5-60.0 [facility] Comment on above: Performed By: #### A 1C #### [facility] [address] [place] [address] Dr. Gil Smith MANUAL DIFF REQ NO Normal [facility] Comment on above: Performed By: #### A 1C #### [facility] [address] [address] [address] Gil Smith MCH (RBC) [Entitic mass] 30.2 pg Normal 25.9-34.0 [facility] Comment on above: Performed By: #### A 1C #### [facility] [address] [address] [address] Gil Smith MCHC (RBC) [Mass/Vol] 35.1 g/dL Normal 29.9-35.2 [facility] Comment on above: Performed By: #### A 1C #### [facility] [address] [address] [address] Gil Smith MCV (RBC) [Entitic vol] 86.2 fL Normal 80.0-94.0 [facility] Comment on above: Performed By: #### A 1C #### [facility] [address] [place] [address] Dr. Gil Smith MONO # 0.7 103/ul Normal 0.3-0.8 [facility] Comment on above: Performed By: #### A 1C #### [facility] [address] [place] [address] Dr. Gil Smith Monocytes/100 WBC (Bld) 5.3 % Normal 1.7-12.0 [facility] Comment on above: Performed By: #### A 1C #### [facility] [address] [address] [address] Gil Smith NEUT # 9.8 103/ul Critically high 1.4-6.5 [facility] Comment on above: Performed By: #### A 1C #### [facility] [address] [place] [address] Dr. Gil Smith Neutrophils/100 WBC (Bld) 76.0 % Critically high 43.0-75.0 [facility] Comment on above: Performed By: #### A 1C #### [facility] [address] [place] [address] Dr. Gil Smith Platelet mean volume (Bld) [Entitic vol] 9.4 fL Critically low 9.5-13.5 [facility] Comment on above: Performed By: #### A 1C #### [facility] [address] [address] [address] Gil Smith PLT 334 103/ul Normal 150-450 [facility] Comment on above: Performed By: #### A 1C #### [facility] [address] [place] [address] Dr. Gil Smith RBC 5.16 106/ul Normal 4.70-6.10 [facility] Comment on above: Performed By: #### A 1C #### [facility] [address] [place] [address] Dr. Gil Smith WBC 12.9 103/ul Critically high 4.0-11.0 [facility] Comment on above: Performed By: #### A 1C #### [facility] [address] [place] [address] Dr. Gil Smith PROF CHEM 8 (BAS METB)on Anion gap [Moles/Vol] 10.6 mmol/L Normal [facility] Comment on above: Performed By: #### B MP #### [facility] [address] [place] [address] Dr. Gil Smith Calcium [Mass/Vol] 9.1 mg/dL Normal 8.5-10.1 [facility] Comment on above: Performed By: #### B MP #### [facility] [address] [place] [address] Dr. Gil Smith Chloride [Moles/Vol] 101 mmol/L Normal 98-107 [facility] Comment on above: Performed By: #### B MP #### [facility] [address] [place] [address] Dr. Gil Smith CO2 [Moles/Vol] 30.7 mmol/L Normal 21.0-32.0 [facility] Comment on above: Performed By: #### B MP #### [facility] [address] [place] [address] Dr. Gil Smith Creatinine [Mass/Vol] 1.14 mg/dL Normal 0.70-1.30 [facility] Comment on above: Performed By: #### B MP #### [facility] [address] [address] [address] Gil Smith EGFR-AF ALBANIAN >60 Normal >=60 [facility] Comment on above: Performed By: #### B MP #### [facility] [address] [address] [address] Gil Smith EGFR-NON AF ALBANIAN >60 Normal >=60 [facility] Comment on above: Performed By: #### B MP #### [facility] [address] [address] [address] Gil Smith Glucose [Mass/Vol] 181 mg/dL Critically high 74-106 [facility] Comment on above: Performed By: #### B MP #### [facility] [address] [address] [address] Gil Smith Potassium [Moles/Vol] 4.3 mmol/L Normal 3.5-5.1 [facility] Comment on above: Performed By: #### B MP #### [facility] [address] [address] [address] Gil Smith Sodium [Moles/Vol] 138 mmol/L Normal 136-145 [facility] Comment on above: Performed By: #### B MP #### [facility] [address] [address] [address] Gil Smith Urea nitrogen [Mass/Vol] 19.0 mg/dL Critically high 7.0-18.0 [facility] Comment on above: Performed By: #### B MP #### [facility] [address] [address] [address] Gil Smith Urea nitrogen/Creatinine [Mass ratio] 16.7 mg/mg Normal [facility] Comment on above: Performed By: #### B MP #### [facility] [address] [address] [address] Gil Smith POINT OF CARE GLUCOSEon 09-0 Glucose [Mass/Vol] 115 mg/dL Critically high 74-106 [facility] Comment on above: Performed By: #### P OCGLUC #### [facility] [address] [place] [address] Dr. Gil Smith Covid-19 PCR (CVDTB)on 10-12 SARS-CoV-2 (COVID-19) RNA ITA+probe Ql (Unsp spec) Not detected Normal NOT DETECTED [facility] Comment on above: Result Comment: This test is not yet approved or cleared by the [place] FDA. When there are no FDA-approved or cleared tests available, and other criteria are met, FDA can make tests available under an emergency access mechanism called an Emergency Use Authorization (EUA). The EUA for this test is supported by the File Drawer Finisher of Health and Human Service's (HHS's) declaration [...] consistent with SARS-CoV-2. Performed By: #### C VDTBH #### [facility] [address] [place] [address] Dr. Gil Smith CBC AUTO DIFFon 11-01-2021 BASO # 0.0 103/ul Normal 0.0-0.1 [facility] Comment on above: Performed By: #### C BC #### [facility] [address] [place] [address] Dr. Gil Smith Basophils/100 WBC (Bld) 0.3 % Normal 0.2-2.0 [facility] Comment on above: Performed By: #### C BC #### [facility] [address] [place] [address] Dr. Gil Smith EO # 0.3 103/ul Normal 0.0-0.7 [facility] Comment on above: Performed By: #### C BC #### [facility] [address] [place] [address] Dr. Gil Smith Eosinophils/100 WBC (Bld) 2.8 % Normal 0.9-7.0 [facility] Comment on above: Performed By: #### C BC #### [facility] [address] [place] [address] Dr. Gil Smith Erythrocyte distribution width (RBC) [Ratio] 11.9 % Normal 11.0-15.0 [facility] Comment on above: Performed By: #### C BC #### [facility] [address] [place] [address] Dr. Gil Smith Hematocrit (Bld) [Volume fraction] 45.4 % Normal 42.0-54.0 [facility] Comment on above: Performed By: #### C BC #### [facility] [address] [place] [address] Dr. Gil Smith Hemoglobin (Bld) [Mass/Vol] 15.2 g/dL Normal 14.0-18.0 [facility] Comment on above: Performed By: #### C BC #### [facility] [address] [place] [address] Dr. Gil Smith IG # 0.02 10e3/ul Normal 0.00-0.03 [facility] Comment on above: Performed By: #### C BC #### [facility] [address] [place] [address] Dr. Gil Smith IG % 0.2 % Normal 0.0-0.5 [facility] Comment on above: Performed By: #### C BC #### [facility] [address] [place] [address] Dr. Gil Smith LYMPH # 2.3 103/ul Normal 1.2-3.8 [facility] Comment on above: Performed By: #### C BC #### [facility] [address] [place] [address] Dr. Gil Smith Lymphocytes/100 WBC (Bld) 26.1 % Normal 20.5-60.0 [facility] Comment on above: Performed By: #### C BC #### [facility] [address] [place] [address] Dr. Gil Smith MANUAL DIFF REQ NO Normal [facility] Comment on above: Performed By: #### C BC #### [facility] [address] [place] [address] Dr. Gil Smith MCH (RBC) [Entitic mass] 29.7 pg Normal 25.9-34.0 [facility] Comment on above: Performed By: #### C BC #### [facility] [address] [place] [address] Dr. Gil Smith MCHC (RBC) [Mass/Vol] 33.5 g/dL Normal 29.9-35.2 [facility] Comment on above: Performed By: #### C BC #### [facility] [address] [place] [address] Dr. Gil Smith MCV (RBC) [Entitic vol] 88.8 fL Normal 80.0-94.0 [facility] Comment on above: Performed By: #### C BC #### [facility] [address] [place] [address] Dr. Gil Smith MONO # 0.4 103/ul Normal 0.3-0.8 [facility] Comment on above: Performed By: #### C BC #### [facility] [address] [place] [address] Dr. Gil Smith Monocytes/100 WBC (Bld) 4.6 % Normal 1.7-12.0 [facility] Comment on above: Performed By: #### C BC #### [facility] [address] [place] [address] Dr. Gil Smith NEUT # 5.9 103/ul Normal 1.4-6.5 [facility] Comment on above: Performed By: #### C BC #### [facility] [address] [place] [address] Dr. Gil Smith Neutrophils/100 WBC (Bld) 66.0 % Normal 43.0-75.0 [facility] Comment on above: Performed By: #### C BC #### [facility] [address] [place] [address] Dr. Gil Smith Platelet mean volume (Bld) [Entitic vol] 9.3 fL Critically low 9.5-13.5 [facility] Comment on above: Performed By: #### C BC #### [facility] [address] [place] [address] Dr. Gil Smith PLT 306 103/ul Normal 150-450 [facility] Comment on above: Performed By: #### C BC #### [facility] [address] [place] [address] Dr. Gil Smith RBC 5.11 106/ul Normal 4.70-6.10 [facility] Comment on above: Performed By: #### C BC #### [facility] [address] [address] [address] Gil Smith WBC 8.9 103/ul Normal 4.0-11.0 [facility] Comment on above: Performed By: #### C BC #### [facility] [address] [place] [address] Dr. Gil Smith PROF CHEM 8 (BAS METB)on Anion gap [Moles/Vol] 9.5 mmol/L Normal [facility] Comment on above: Performed By: #### B MP #### [facility] [address] [place] [address] Dr. Gil Smith Calcium [Mass/Vol] 9.2 mg/dL Normal 8.5-10.1 [facility] Comment on above: Performed By: #### B MP #### [facility] [address] [place] [address] Dr. Gil Smith Chloride [Moles/Vol] 103 mmol/L Normal 98-107 [facility] Comment on above: Performed By: #### B MP #### [facility] [address] [place] [address] Dr. Gil Smith CO2 [Moles/Vol] 30.5 mmol/L Normal 21.0-32.0 [facility] Comment on above: Performed By: #### B MP #### [facility] [address] [place] [address] Dr. Gil Smith Creatinine [Mass/Vol] 1.00 mg/dL Normal 0.70-1.30 [facility] Comment on above: Performed By: #### B MP #### [facility] [address] [address] [address] Gil Smith EGFR-AF ALBANIAN >60 Normal >=60 [facility] Comment on above: Performed By: #### B MP #### [facility] [address] [address] [address] Gil Smith EGFR-NON AF ALBANIAN >60 Normal >=60 [facility] Comment on above: Performed By: #### B MP #### [facility] [address] [address] [address] Gil Smith Glucose [Mass/Vol] 120 mg/dL Critically high 74-106 [facility] Comment on above: Performed By: #### B MP #### [facility] [address] [place] [address] Dr. Gil Smith Potassium [Moles/Vol] 5.0 mmol/L Normal 3.5-5.1 [facility] Comment on above: Performed By: #### B MP #### [facility] [address] [place] [address] Dr. Gil Smith Sodium [Moles/Vol] 138 mmol/L Normal 136-145 [facility] Comment on above: Performed By: #### B MP #### [facility] [address] [place] [address] Dr. Gil Smith Urea nitrogen [Mass/Vol] 13.0 mg/dL Normal 7.0-18.0 [facility] Comment on above: Performed By: #### B MP #### [facility] [address] [place] [address] Dr. Gil Smith Urea nitrogen/Creatinine [Mass ratio] 13.0 mg/mg Normal [facility] Comment on above: Performed By: #### B MP #### [facility] [address] [place] [address] Dr. Gil Smith PROTIMEon 11-01-2021 INR Coag (PPP) [Relative time] 1.00 {INR} Normal [facility] Comment on above: Performed By: #### B MP #### [facility] [address] [place] [address] Dr. Gil Smtih INR GUIDELINES SEE BELOW Normal [facility] Comment on above: Result Comment: CHUCK RED INR: 2.0 - 3.0 CONDITIONS NOT LISTED BELOW 2.5 - 3.5 FOR PROSTHETIC HEART VALVE REPLACEMENT 2.5 - 3.5 RECURRENT THROMBOSIS Performed By: #### B MP #### [facility] [address] [place] [address] Dr. Gil Smith PT Coag (PPP) [Time] 10.8 s Normal 9.0-11.6 [facility] Comment on above: Performed By: #### B MP #### [facility] [address] [place] [address] Dr. Gli Smith PTTon 11-01-2021 aPTT Coag (Bld) [Time] 27.7 s Normal 22.3-36.2 [facility] Comment on above: Performed By: #### P T, PTT #### [facility] [address] [place] [address] Dr. Gil Smith XR CHEST 2 Von [...] by: DANAY ROSADO Date: 2021-11-01 16:55 Normal [facility] GLYCOHEMOGLOBIN A1Con 2021 ADA RECOMMENDATION SEE BELOW Normal [facility] Comment on above: Result Comment: ADA RECOMMENDED LIMIT 4.0 - 6.0 ADA THERAPEUTIC TARGET < 7.0 ACTION SUGGESTED > 7.0 Performed By: #### B MP #### [facility] [address] [place] [address] Dr. Gil Smith Glucose [Mass/Vol] 140 mg/dL Normal [facility] Comment on above: Performed By: #### B MP #### [facility] [address] [address] [address] Gil Smith HbA1c (Bld) [Mass fraction] 6.5 % Critically high 4.5-6.2 [facility] Comment on above: Performed By: #### B MP #### [facility] [address] [address] [address] Gil Smith GLYCOHEMOGLOBIN A1Con 2021 ADA RECOMMENDATION ADA THERAPEUTIC TARGET 6.0 - 7.0 ACTION SUGGESTED > 7.0 Normal [facility] Comment on above: Performed By: #### A 1C #### [facility] [address] [address] [address] Gil Smith Glucose [Mass/Vol] 137 mg/dL Normal [facility] Comment on above: Performed By: #### A 1C #### [facility] [address] [address] [address] Gil Smith HbA1c (Bld) [Mass fraction] 6.4 % Critically high <=6.0 [facility] Comment on above: Performed By: #### A 1C #### [facility] [address] [address] [address] Gil Smith Bladder Cancer FISHon 2021 Specimen Type: Normal [facility] Comment on above: Result Comment: See report. Scanned copy available in EMR. PERFORMED BY: [address] [place] [address] PATHOLOGIST FITTING ROOM ASSOCIATE CHANCE ALMARAZ M.D. Performed By: #### F RAYSA BLADD #### [facility] , [place] 04-21-2021 L Specimen: [id number] Received: 04/22/21 Status: DEBI Cornejorafal Num: [id number] Spec Type: Cytology Subm Dr: Randall Molina MD Tissues: A URINECYTO (URINE) Procedures: Pap Stain, Cyto Prepstain Patient Age/Sex Location Account Attending Physician Eli Garrison 71/M [place] [id number] Randall Molina MD SPEC NUM: [id number] RECD: 04/22/21 STATUS: DEBI RODGERS NUM: [id number] KENIA: 04/21/21- SUBM DR: Randall Molina MD ENTERED: 04/22/[address] [facility] [address]: SPEC TYPE: Cytology DEPT: IGNACIO ENTERED BY: [id number] RECV BY: [id number] ORDERED: Pap Stain, Cyto Prepstain ORDERED: Pap [...] findings support the above diagnosis. CPT Codes 04142 Specimen: [id number] Received: 04/22/21 Status: DEBI Rodgers Num: [id number] Spec Type: Cytology Subm Dr: Randall Molina MD Tissues: A URINECYTO (URINE) Procedures: Pap Stain, Cyto Prepstain Patient: Eli Garrison [id number] (Continued) Signed (signature on file) Ryan Cr MD 04/22/21 1807 Normal [facility] PSA SCREENING [facility]on 02-12 Prostate specific Ag [Mass/Vol] 1.5 ng/mL Normal 0.0-4.0 [facility] Comment on above: Result Comment: Talita COLEMAN methodology. . According to the [place] [employer], Serum PSA should decrease and [...] disease. Performed By: #### P SASCLC #### [facility] [address] [place] [address] Dr. Gil Smith VIT D 25-OH [facility]on 2020 Vitamin D, 25-Hydroxy 32.9 ng/mL Normal 30.0-100.0 [facility] Comment on above: Result Comment: Kelly min D deficiency has been defined by the [place] of [employer] and an Endocrine Society practice guideline as a level of serum 25-OH vitamin D less than 20 ng/mL (1,2). The Endocrine Society went on to further define vitamin D insufficiency as a level between 21 and 29 ng/mL (2). 1. IOM ([place] [employer]). 2010. Dietary reference intakes for calcium and D. [place]: The National Academies Press. 2. Pedro MF, Rosa Elena [place], Jamison XIONG, et al. Evaluation, treatment, and prevention of vitamin D deficiency: an Endocrine Society clinical practice guideline. JCEM. 2010; 96(7):1911-30. Performed By: #### B MP #### [facility] [address] [address] [address] Gil Smith CBC AUTO DIFFon 03-10-2021 BASO # 0.0 103/ul Normal 0.0-0.1 [facility] Comment on above: Performed By: #### B MP #### [facility] [address] [place] [address] Dr. Gil Smith Basophils/100 WBC (Bld) 0.5 % Normal 0.2-2.0 [facility] Comment on above: Performed By: #### B MP #### [facility] [address] [place] [address] Dr. Gil Smith EO # 0.3 103/ul Normal 0.0-0.7 [facility] Comment on above: Performed By: #### B MP #### [facility] [address] [place] [address] Dr. Gil Smith Eosinophils/100 WBC (Bld) 3.0 % Normal 0.9-7.0 [facility] Comment on above: Performed By: #### B MP #### [facility] [address] [place] [address] Dr. Gil Smith Erythrocyte distribution width (RBC) [Ratio] 12.1 % Normal 11.0-15.0 [facility] Comment on above: Performed By: #### B MP #### [facility] [address] [place] [address] Dr. Gil Smith Hematocrit (Bld) [Volume fraction] 45.2 % Normal 42.0-54.0 [facility] Comment on above: Performed By: #### B MP #### [facility] [address] [place] [address] Dr. Gil Smith Hemoglobin (Bld) [Mass/Vol] 15.1 g/dL Normal 14.0-18.0 [facility] Comment on above: Performed By: #### B MP #### [facility] [address] [place] [address] Dr. iGl Smith IG # 0.03 10e3/ul Normal 0.00-0.03 [facility] Comment on above: Performed By: #### B MP #### [facility] [address] [place] [address] Dr. Gil Smith IG % 0.4 % Normal 0.0-0.5 [facility] Comment on above: Performed By: #### B MP #### [facility] [address] [place] [address] Dr. Gil Smith LYMPH # 2.7 103/ul Normal 1.2-3.8 [facility] Comment on above: Performed By: #### B MP #### [facility] [address] [place] [address] Dr. Gil Smith Lymphocytes/100 WBC (Bld) 31.9 % Normal 20.5-60.0 [facility] Comment on above: Performed By: #### B MP #### [facility] [address] [place] [address] Dr. Gil Smith MANUAL DIFF REQ NO Normal [facility] Comment on above: Performed By: #### B MP #### [facility] [address] [place] [address] Dr. Gil Smith MCH (RBC) [Entitic mass] 29.6 pg Normal 25.9-34.0 [facility] Comment on above: Performed By: #### B MP #### [facility] [address] [place] [address] Dr. Gil Smith MCHC (RBC) [Mass/Vol] 33.4 g/dL Normal 29.9-35.2 [facility] Comment on above: Performed By: #### B MP #### [facility] [address] [place] [address] Dr. Gil Smith MCV (RBC) [Entitic vol] 88.6 fL Normal 80.0-94.0 [facility] Comment on above: Performed By: #### B MP #### [facility] [address] [place] [address] Dr. Gil Smith MONO # 0.4 103/ul Normal 0.3-0.8 [facility] Comment on above: Performed By: #### B MP #### [facility] [address] [place] [address] Dr. Gil Smith Monocytes/100 WBC (Bld) 4.9 % Normal 1.7-12.0 [facility] Comment on above: Performed By: #### B MP #### [facility] [address] [place] [address] Dr. Gil Smith NEUT # 4.9 103/ul Normal 1.4-6.5 [facility] Comment on above: Performed By: #### B MP #### [facility] [address] [place] [address] Dr. Gil Smith Neutrophils/100 WBC (Bld) 59.3 % Normal 43.0-75.0 [facility] Comment on above: Performed By: #### B MP #### [facility] [address] [place] [address] Dr. Gil Smith Platelet mean volume (Bld) [Entitic vol] 9.0 fL Critically low 9.5-13.5 [facility] Comment on above: Performed By: #### B MP #### [facility] [address] [place] [address] Dr. Gil Smith PLT 307 103/ul Normal 150-450 [facility] Comment on above: Performed By: #### B MP #### [facility] [address] [place] [address] Dr. Gil Smith RBC 5.10 106/ul Normal 4.70-6.10 [facility] Comment on above: Performed By: #### B MP #### [facility] [address] [place] [address] Dr. Gil Smith WBC 8.3 103/ul Normal 4.0-11.0 [facility] Comment on above: Performed By: #### B MP #### [facility] [address] [place] [address] Dr. Gil Smith GLYCOHEMOGLOBIN A1Con 2020 ADA RECOMMENDATION ADA THERAPEUTIC TARGET 6.0 - 7.0 ACTION SUGGESTED > 7.0 Normal [facility] Comment on above: Performed By: #### A 1C #### [facility] [address] [place] [address] Dr. Gil Smith Glucose [Mass/Vol] 131 mg/dL Normal [facility] Comment on above: Performed By: #### A 1C #### [facility] [address] [place] [address] Dr. Gil Smith HbA1c (Bld) [Mass fraction] 6.2 % Critically high <=6.0 [facility] Comment on above: Performed By: #### A 1C #### [facility] [address] [place] [address] Dr. Gil Smith MICROALBUMIN, RAND URon 12-2 mALB <1.3 Normal <=30.0 [facility] Comment on above: Performed By: #### B MP #### [facility] [address] [place] [address] Dr. Gil Smith PROF CHEM 8 (BAS METB)on Anion gap [Moles/Vol] 8.6 mmol/L Normal [facility] Comment on above: Performed By: #### B MP #### [facility] [address] [place] [address] Dr. Gil Smith Calcium [Mass/Vol] 9.1 mg/dL Normal 8.4-10.2 [facility] Comment on above: Performed By: #### B MP #### [facility] [address] [place] [address] Dr. Gil Smith Chloride [Moles/Vol] 103 mmol/L Normal 98-107 [facility] Comment on above: Performed By: #### B MP #### [facility] [address] [place] [address] Dr. Gil Smith CO2 [Moles/Vol] 31.5 mmol/L Critically high 22.0-30.0 [facility] Comment on above: Performed By: #### B MP #### [facility] [address] [place] [address] Dr. Gil Smith Creatinine [Mass/Vol] 0.89 mg/dL Normal 0.66-1.25 [facility] Comment on above: Performed By: #### B MP #### [facility] [address] [place] [address] Dr. Gil Smith EGFR-AF ALBANIAN >60 Normal >=60 [facility] Comment on above: Performed By: #### B MP #### [facility] [address] [place] [address] Dr. Gil Smith EGFR-NON AF ALBANIAN >60 Normal >=60 [facility] Comment on above: Performed By: #### B MP #### [facility] [address] [address] [address] Gil Smith Glucose [Mass/Vol] 117 mg/dL Critically high 74-106 [facility] Comment on above: Performed By: #### B MP #### [facility] [id number] Gil Smith Potassium [Moles/Vol] 4.1 mmol/L Normal 3.4-5.0 [facility] Comment on above: Performed By: #### B MP #### [facility] [address] [address] [address] Gil Smith Sodium [Moles/Vol] 139 mmol/L Normal 137-145 [facility] Comment on above: Performed By: #### B MP #### [facility] [address] [address] [address] Gil Smith Urea nitrogen [Mass/Vol] 13.0 mg/dL Normal 9.0-20.0 [facility] Comment on above: Performed By: #### B MP #### [facility] [address] [address] [address] Gil Smith Urea nitrogen/Creatinine [Mass ratio] 14.6 mg/mg Normal [facility] Comment on above: Performed By: #### B MP #### [facility] [address] [address] [address] Gil Smith Bladder Cancer Count includes the [facility] 2020 Specimen Type: Normal [facility] Comment on above: Result Comment: See report. Scanned copy available in EMR. PERFORMED BY: [address] [place] [address] PATHOLOGIST FITTING ROOM ASSOCIATE CHANCE ALMARAZ M.D. Performed By: #### F RAYSA BLADD #### [facility] , [facility] 01-20-2021 L Specimen: [id number] Received: 01/21/21 Status: DEBI Vishal Num: [id number] Spec Type: Cytology Subm Dr: Randall Molina MD Tissues: A URINECYTO (URINE-BLADDER WASH) Procedures: Pap Stain, Cyto Prepstain Patient Age/Sex Location Account Attending Physician Eli Garrison/[place] [id number] Randall Molina MD SPEC NUM: [id number] RECD: 01/21/21 STATUS: DEBI VISHAL NUM: [id number] KENIA: 01/20/21- SUBM DR: Randall Molina MD ENTERED: 01/21/[address]: SPEC TYPE: Cytology DEPT: ADELAIDA ENTERED BY: [id number] RECV BY: [id number] ORDERED: Pap Stain, Cyto Prepstain ORDERED: Pap [...] findings support the above diagnosis. CPT Codes 69767 Specimen: [id number] Received: 01/21/21 Status: DEBI Rodgers Num: [id number] Spec Type: Cytology Subm Dr: Randall Molina MD Tissues: A URINECYTO (URINE-BLADDER WASH) Procedures: Pap Stain, Cyto Prepstain Patient: Eli Garrison [id number] (Continued) Signed (signature on file) Ryan Cr MD 01/23/21 [facility] Vital Signs Date Time Vital Sign Value Performing Clinician Facility 02-17-2023 08:30-0500 Body height [facility] Other [facility] Other 02-17-2023 08:30-0500 Body mass index (BMI) [Ratio] 29.43 kg/m2 [facility] Other [facility] Other 02-17-2023 08:30-0500 Body temperature 97.3 [degF] [facility] Other [facility] Other 02-17-2023 08:30-0500 Body weight 91.72 kg [facility] Other [facility] Other 02-17-2023 08:30-0500 Diastolic blood pressure 65 mm[Hg] [facility] Other [facility] Other 02-17-2023 08:30-0500 Respiratory rate 14 /min [facility] Other [facility] Other 02-17-2023 08:30-0500 SaO2% (BldA) [Mass fraction] 96 % [facility] Other [facility] Other 02-17-2023 08:30-0500 Systolic blood pressure 110 mm[Hg] [facility] Other [facility] Other 10-07-2022 09:00-0400 Body height Antoni Ball Other [facility] Other 10-07-2022 09:00-0400 Body mass index (BMI) [Ratio] 29.72 kg/m2 Antoni Ball Other [facility] Other 10-07-2022 09:00-0400 Body weight 92.63 kg Antoni Ball Other [facility] Other 10-07-2022 09:00-0400 Diastolic blood pressure 69 mm[Hg] Antoni Ball Other [facility] Other 10-07-2022 09:00-0400 Respiratory rate 12 /min Antoni Ball Other [facility] Other 10-07-2022 09:00-0400 Systolic blood pressure 138 mm[Hg] Antoni Ball Other [facility] Other 07-06-2022 09:30-0400 Body height Antoni Ball Other [facility] Other 07-06-2022 09:30-0400 Body mass index (BMI) [Ratio] 30.33 kg/m2 Antoni Ball Other [facility] Other 07-06-2022 09:30-0400 Body weight 94.53 kg Antoni Ball Other [facility] Other 07-06-2022 09:30-0400 Diastolic blood pressure 76 mm[Hg] Antoni Ball Other [facility] Other 07-06-2022 09:30-0400 Respiratory rate 12 /min Antoni Ball Other [facility] Other 07-06-2022 09:300400 Systolic blood pressure 118 mm[Hg] Anotni Lalit Other [facility] Other Encounters Encounter Date Encounter Type Care Provider Facility Start: 11-15-2023 ambulatory Randall MOLINA Facili ty:[facility] Start: 05-31-2023 End: 05-31-2023 ambulatory Randall MOLINA Facility:[facility] Start: 04-11-2023 End: 04-11-2023 ambulatory Antoni Cohn Other [facility] Other Start: 04-11-2023 Telephone encounter Antoni HENAO [facility] Start: 04-05-2023 End: 04-05-2023 ambulatory Antoni Cohn Other [facility] Other Start: 04-05-2023 Telephone encounter Antoni HENAO [facility] Start: 02-17-2023 End: 02-17-2023 ambulatory Antoni Cohn Other [facility] Other Start: 02-17-2023 Patient encounter procedure Antoni Cohn [facility] Start: 10-12-2022 End: 10-12-2022 ambulatory Antoni Cohn Other [facility] Other Start: 10-12-2022 Telephone encounter Antoni Cohn [facility] Start: 10-07-2022 End: 10-07-2022 ambulatory Antoni Cohn Other [facility] Other Start: 10-07-2022 Office outpatient vi sit 25 minutes Antoni Cohn [facility] Start: 07-06-2022 End: 07-06-2022 ambulatory Antoni Cohn Other [facility] Other Start: 07-06-2022 Office outpatient vi sit 15 minutes Antoni Cohn [facility] Start: 02-28-2022 End: 03-01-[address] ANTONI COHN Facility: Start: 02-15-2022 Adult health examination Zack Cohn Other [facility] Other Start: 02-15-2022 Encounter for genera l adult medical examination without abnormal findings Antoni Cohn Other [facility] Other Start: 11-13-2021 End: 11-14-[address] ANTONI COHN Facility:[facility] Start: 11-11-2021 End: 11-11-[address] RANDALL MOLINA Facility:[facility] Start: 11-09-2021 Encounter for preprocedural laboratory examination DR RANDALL MOLINA [facility] Start: 11-08-2021 End: 11-09-[address] RANDALL MOLINA Facility:[facility] Start: 11-08-2021 End: 11-09-2021 Encounter for preprocedural laboratory examination DR RANDALL MOLINA Facility:[facility] Start: 11-03-2021 Encounter for preprocedural cardiovascular examination DR RANDALL MOLINA [facility] Start: 11-03-2021 Encounter for preprocedural laboratory examination DR RANDALL MOLINA [facility] Start: 11-01-2021 End: 11-02-[address] RANDALL MOLINA Facility:[facility] Start: 11-01-2021 End: 11-02-2021 Encounter for preprocedural cardiovascular examination DR RANDALL MOLINA Facility:[facility] Start: 10-12-2021 End: 10-13-[address] ANTONI COHN Facility:[facility] Start: 07-01-2021 End: 07-02-[address] ANTONI COHN Facility:[facility] Start: 03-10-2021 End: 03-11-[address] ANTONI COHN Facility:[facility] Start: 01-27-2019 Encounter for preprocedural cardiovascular examination Antoni Cohn Other [facility] Other Start: 01-27-2019 Preoperative cardiovascular examination Antoni Cohn Other [facility] Other Procedures Date Procedure Procedure Detail Performing Clinician Start: 11-01-[address] LAMIN MOLINA Comment on above: Performed By: #### B MP #### [facility] [address] [place] [address] Dr. Gil Smith Start: 11-08-2013 Pre-surgery evaluation Antoni Cohn Other Start: 10-14-2013 Screening for malign ant neoplasm of prostate Antoni Cohn Other Depression screening Landon Cohn Other Screening for malign ant neoplasm of prostate Antoni Cohn Other Immunizations Immunization Date Immunization Notes Care Provider Glenn velazco 06-06-2017 diphtheria, tetanus toxoids and acellular pertussis vaccine, unspecified formulation Antoni Cohn Other [facility] Other 01-18-2017 diphtheria, tetanus toxoids and acellular pertussis vaccine, unspecified formulation Antoni Cohn Other [facility] Other Payers Date Payer Category Payer Medicare [id number] 1958 Private Health Insurance [id number] 1950 Unknown [id number] 2.16.84 0.1.718409.3.579.2.593 1950 Unknown [id number] 2.16.84 0.1.033048.3.579.2.593 1950 Unknown [id number] 2.16.84 0.1.344402.3.579.2.593 1950 Unknown [id number] 2.16.84 0.1.408971.3.579.2.593 1950 Unknown [id number] 2.16.84 0.1.233185.3.579.2.593 1950 Unknown [id number] 2.16.84 0.1.339825.3.579.2.593 1950 Unknown [id number] 2.16.84 0.1.413721.3.579.2.593 1950 Unknown [id number] 2.16.84 0.1.421771.3.579.2.593 1950 Unknown [id number] 2.16.8 40.1.240631.3.579.2.727 1950 Unknown [id number] 2.16.8 40.1.117885.3.579.2.727 1950 Unknown [id number] 2.16.8 40.1.291306.3.579.2.727 Social History Date Type Detail Facility Sex Assigned At [facility] Other Medical Equipment Procedure Code Equipment Code Equipment Origin al Text Equipment Identifier Dates Start: 10-07-2022 Evaluation note 04-05-2023 Note Date & Type Note Facility 04-05-2023 Evaluation note Encounter Date Diagnosis Assessment Notes Mar, Hyperlipemia (ICD-10 - E78.5) [email or web address] Other Evaluation note 02-17-2023 Note Date & [...] (ICD-10 - Z12.5) Yearly AGUILA and PSA [facility] Other Evaluation note 10-07-2022 Note Date & [...] in remission (ICD-10 - F17.211) Continue abstinence [facility] Other Evaluation note 07-06-2022 Note Date & [...] exercise to achieve/mainta in a normal BMI. [facility] Other Evaluation note Note Date & Type Note Facility Evaluation note No Information [employer] Other History general Narrative - Reported Note [...] PYELOGRAPHY 2019 Hospitalization History SEE SURGICAL HX [facility] Other History general Narrative - Reported Note [...] PYELOGRAPHY 2019 Hospitalization History SEE SURGICAL HX [facility] Other History general Narrative - Reported Note [...] RETROGRADE PYELOGRAPHY 2019 Hospitalization History SEE SURGICAL [facility] Other Summary Purpose Family History No Family History Records FoundNo Family History Records FoundNo Family History Records Found Advance Directives No Advanced Directives Records FoundNo Advanced Directives Records FoundNo Advanced Directives Records Found Additional Source Comments (unrecognized sect ion and content) No Status Records FoundNo Status Records FoundNo Status Records Found INFORMATION SOURCE (unrecogn ized section and content) DATE CREATED AUTHOR 05/06/2021 [facility] DATE CREATED AUTHOR AUTHOR'S ORGANIZ ATION 03/09/2022 [facility] DATE CREATED AUTHOR AUTHOR'S ORGANIZ ATION 10/02/2023 [facility] REASON FOR VISIT (unrecogniz ed section and content) EAR CLEANING4 month Follow u pLab ResultswellnessRepeat LabsLab results FOR RECORDS PERTAINING TO PATIENTS WHO ARE [...] BE BASED ON THE PRIMARY CLINICAL RECORDS. [employer] [facility]. provides no warranty or guarantee of the accuracy or completeness of information in this document.
[2023-10-19 12:32] LABS: Estimated Average Glucose 148 mg/dL; Glycohemoglobin A1C 6.8 % (4.5-6.2)
== END 2023-10-19 11:10 | disposition home or self-care (01) ==
LOC: LAB 11:11
PROVIDERS: PCP Internal Medicine; Visit Provider Internal Medicine
DX: E11.65 Type 2 diabetes mellitus with hyperglycemia (principal); R05.9 Cough, unspecified
CPT/HCPCS: 36415; 71046; 83036

== ENCOUNTER 2023-11-08 09:49 | Outpatient (OUT) | payer MEDICARE, OTHER, SELFPAY ==
--- OUTSIDE RECORDS SUMMARY | 2023-11-08 10:03 | XMS_ITS | CCD ---
Author Organization [facility] CliniSyid Care Team Providers Care Store Stocker Name Role Phone MACI, DR CAPUTO Admitting [...] MOLINA Attending Unavailable Randall MOLINA Attending Unavailable MOLINARandall Attending Unavailable MOLINARandall Admitting Unavailable Allergies Allergy Classification Reported Allergen(s) Allergy Type Date of Onset Reaction(s) Facility (2 sources) patient allergy list reviewed by nurse or physicia Propensity to adverse reactions 8 Comment:Done [employer] Other (1 source) No Known Medication Allergies; Translations: [No Known Medication Allergies] Propensity to adverse reactions (disorder) 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 Comment on above: Result Comment: A:Ur [...] correlated with cytology and cystoscopy results.* CPT 25498, 97938. Microscopic Notes - Microscopic Notes - Abnormal cells 9p21 deletions: Abnormal cells aneploid events: Total cells analyzed: 100 Hematuria: Gross Description Site ID:A color Yellow fixative Alcohol Received 100 mls of clear yellow fluid with the patient's name and, Bladder Wash on the vial. Electronically signed by : on: 06/07/2023 11:05:10 Performed By: #### 1 [id number] #### [facility] Laboratory [address] [place] [address] Consent for Procedure/Surger yon 06-01-2023 Consent for Procedure/Surgery [id number] #1.00TIFF [facility] Lab Reportson 06-01-2023 Lab Reports [id number] #1.00TIFF [facility] Ambulatory Visit Summaryon 0 05-31-2023 Ambulatory Visit Summary ELI GARRISON :1950 Visit Date:05/31/2023 Ambulatory Visit Instructions Your Diagnosis Hx of bladder cancer Lesion of bladder Elevated PSA Enlarged prostate with urinary obstruction Your Care Team Attending Physician - Randall MOLINA MD Primary Care Physician - ANTONI COHN DO This Is Your Medications List Contact prescribing physician if questions or concerns acetaminophen-hydroc odone (Vail 325 mg-5 mg oral tablet) ciprofloxacin (Cipro [...] [facility] [address] , [place] [address]- Medications What How Much When Why Instructions Unchanged acetaminophen-hydroc odone (Vail 325 mg-5 mg oral tablet) 1 Tablets [...] flexible tube (more content not included)... Normal [facility] Patient Educationon 05-31-19 Patient Education Oncology [...] if anything looks unusual. Men with a cdloho-qihc-wazeov risk for skin cancer may want to see a skin lifter bacon (technical healthcare consultant) for an annual body check. What are the benefits of screening? Cancer screening is done to look for cancer in the very early stages, before it spreads and becomes harder to treat and before you would start to notice symptoms. Finding cancer early improves the chances of successful treatment. It ma (more content not included)... Normal [facility] UroVysion Fish and Urine Cyt o ([facility])on 05-31-2023 [facility] Method of Extraction Bladder Wash Normal [facility] Comment on above: Performed By: #### 1 [id number] #### [facility] [address] [place] [address] [facility] Number of Jars 1 Invalid Interpretation Code [facility] Comment on above: Performed By: #### 1 [id number] #### [facility] [address] [place] [address] [facility] Specimen Bladder Wash Normal [facility] Comment on above: Performed By: #### 1 [id number] #### [facility] [address] [place] [address] [facility] Type of Service Technical Only Normal [facility] Comment on above: Performed By: #### 1 [id number] #### [facility] [address] [place] [address] Urology Office/Clinic Noteon 05-31-2023 Urology Office/Clinic Note [...] [facility] [address], [place] [address]- Additional Instructions: 6 mos cysto, PSA FT [...] (02/15/2018), Cysto (more content not included)... Normal [facility] Comment on above: Result Comment: Elec tronically Signed By: Randall MOLINA MD\.br\Date and Time Signed: 05/31/23 08:00 EDT\.br\Electronically Co-Signed By: Irma Vance\.br\Date and Time Co-Signed: 05/31/23 07:58 EDT GLYCOHEMOGLOBIN A1Con 2021 ADA RECOMMENDATION SEE BELOW Normal [facility] Comment on above: Result Comment: ADA RECOMMENDED LIMIT 4.0 - 6.0 ADA THERAPEUTIC TARGET < 7.0 ACTION SUGGESTED > 7.0 Performed By: #### A 1C #### [facility] [address] [address] [address] Gil Smith Glucose [Mass/Vol] 137 mg/dL Normal [facility] Comment on above: Performed By: #### A 1C #### [facility] [address] [address] [address] Gil Smith HbA1c (Bld) [Mass fraction] 6.4 % Critically high 4.5-6.2 [facility] Comment on above: Performed By: #### A 1C #### [facility] [address] [address] [address] Gil Smith MICROALBUMIN, RAND URon - mALB <1.3 Normal <=30.0 [facility] Comment on above: Performed By: #### B MP #### [facility] [address] [address] ABD/PELVIS WO CONon [...] HALLEY RAMIRES Date: 2021-11-13 22:56 Normal [facility] CULTURE URINEon 11-14-2021 CULTURE URINE Culture Observations: NO GROWTH. Normal [facility] Comment on above: Performed By: #### B MP #### [facility] [address] [place] [address] Dr. Gil Smith ER URINE PROFILEon 2 Bilirubin Ql (U) MODERATE Abnormal NEGATIVE [facility] Comment on above: Performed By: #### A 1C #### [facility] [address] [place] [address] Dr. Gil Smith Clarity (U) CLEAR Normal CLEAR [facility] Comment on above: Performed By: #### A 1C #### [facility] [address] [place] [address] Dr. Gil Smith Color (U) RED Abnormal YELLOW [facility] Comment on above: Performed By: #### A 1C #### [facility] [address] [place] [address] Dr. Gil DEJESUS A micrscopic examination will be performed if indicated. Normal [facility] Comment on above: Performed By: #### A 1C #### [facility] [address] [place] [address] Dr. Gil Smith Glucose Ql (U) Negative Normal NEGATIVE [facility] Comment on above: Performed By: #### A 1C #### [facility] [address] [place] [address] Dr. Gil Smith Hemoglobin Ql (U) LARGE Abnormal NEGATIVE [facility] Comment on above: Performed By: #### A 1C #### [facility] [address] [place] [address] Dr. Gil Smith Ketones Ql (U) 40 mg/dl Abnormal NEGATIVE [facility] Comment on above: Performed By: #### A 1C #### [facility] [address] [place] [address] Dr. Gil Smith LEUKOCYTES MODERATE Abnormal NEGATIVE [facility] Comment on above: Performed By: #### A 1C #### [facility] [address] [place] [address] Dr. Gil Smith Nitrite Ql (U) Positive Abnormal NEGATIVE [facility] Comment on above: Performed By: #### A 1C #### [facility] [address] [place] [address] Dr. Gil Smith pH (U) 8.5 [pH] Normal 5-9 [facility] Comment on above: Performed By: #### A 1C #### [facility] [address] [place] [address] Dr. Gil Smith Protein (U) [Mass/Vol] 100 mg/dL Abnormal NEGATIVE/ TRACE [facility] Comment on above: Performed By: #### A 1C #### [facility] [address] [place] [address] Dr. Gil Smith SPEC GRAVITY 1.015 Normal 1.005-<=1.[address] [facility] Comment on above: Performed By: #### A 1C #### [facility] [address] [place] [address] Dr. Gil Smith UR MICRO IND INDICATED Normal [facility] Comment on above: Performed By: #### A 1C #### [facility] [address] [place] [address] Dr. Gil Smith Urobilinogen Qn (U) 2.0 {Ross'U}/dL Abnormal 0.2 - 1. 0 [facility] Comment on above: Performed By: #### A 1C #### [facility] [address] [place] [address] Dr. Gil Smith URINE MICROSCOPIC ONLYon BACTERIA SMALL Abnormal NONE SEEN [facility] Comment on above: Result Comment: Prev iously reported as: MODERATE On 11/13/2021 23:51 By [id number] Performed By: #### A 1C #### [facility] [address] [place] [address] Dr. Gil Smith Bacteria identified Cx Nom (U) INDICATED Normal [facility] Comment on above: Performed By: #### A 1C #### [facility] [address] [place] [address] Dr. Gil Smith CAST NONE SEEN Normal NONE SEEN [facility] Comment on above: Performed By: #### A 1C #### [facility] [address] [place] [address] Dr. Gil Smith Crystals LM Nom (Urine sed) NONE SEEN Normal NONE SEEN [facility] Comment on above: Performed By: #### A 1C #### [facility] [address] [place] [address] Dr. Gil Smith Epithelial cells LM Ql (Urine sed) RARE Normal NONE SEEN /RARE [facility] Comment on above: Performed By: #### A 1C #### [facility] [address] [place] [address] Dr. Gil Smith MUCOUS NONE SEEN Normal NONE SEEN [facility] Comment on above: Performed By: #### A 1C #### [facility] [address] [place] [address] Dr. Gil Smith RBC 0-2 Normal 0-2 [facility] Comment on above: Result Comment: Prev iously reported as: >100 On 11/13/2021 23:51 By 01 Performed By: #### A 1C #### [facility] [address] [place] [address] Dr. Gil Smith WBC 2-5 Abnormal NONE SEEN [facility] Comment on above: Performed By: #### A 1C #### [facility] [address] [place] [address] Dr. Gil Smith CBC AUTO DIFFon 11-13-2021 BASO # 0.0 103/ul Normal 0.0-0.1 [facility] Comment on above: Performed By: #### A 1C #### [facility] [address] [place] [address] Dr. Gil Smith Basophils/100 WBC (Bld) 0.2 % Normal 0.2-2.0 [facility] Comment on above: Performed By: #### A 1C #### [facility] [address] [place] [address] Dr. Gil Smith EO # 0.2 103/ul Normal 0.0-0.7 [facility] Comment on above: Performed By: #### A 1C #### [facility] [address] [place] [address] Dr. Gil Smith Eosinophils/100 WBC (Bld) 1.8 % Normal 0.9-7.0 [facility] Comment on above: Performed By: #### A 1C #### [facility] [address] [place] [address] Dr. Gil Smith Erythrocyte distribution width (RBC) [Ratio] 11.9 % Normal 11.0-15.0 [facility] Comment on above: Performed By: #### A 1C #### [facility] [address] [place] [address] Dr. Gil Smith Hematocrit (Bld) [Volume fraction] 44.5 % Normal 42.0-54.0 [facility] Comment on above: Performed By: #### A 1C #### [facility] [address] [place] [address] Dr. Gil Smith Hemoglobin (Bld) [Mass/Vol] 15.6 g/dL Normal 14.0-18.0 [facility] Comment on above: Performed By: #### A 1C #### [facility] [address] [place] [address] Dr. Gil Smith IG # 0.05 10e3/ul Critically high 0.00-0.03 [facility] Comment on above: Performed By: #### A 1C #### [facility] [address] [place] [address] Dr. Gil Smith IG % 0.4 % Normal 0.0-0.5 [facility] Comment on above: Performed By: #### A 1C #### [facility] [address] [place] [address] Dr. Gil Smith LYMPH # 2.1 103/ul Normal 1.2-3.8 [facility] Comment on above: Performed By: #### A 1C #### [facility] [address] [place] [address] Dr. Gil Smith Lymphocytes/100 WBC (Bld) 16.3 % Critically low 20.5-60.0 [facility] Comment on above: Performed By: #### A 1C #### [facility] [address] [place] [address] Dr. Gil Smith MANUAL DIFF REQ NO Normal [facility] Comment on above: Performed By: #### A 1C #### [facility] [address] [address] [address] Gil Smith MCH (RBC) [Entitic mass] 30.2 pg Normal 25.9-34.0 [facility] Comment on above: Performed By: #### A 1C #### [facility] [address] [address] [address] Gil Smith MCHC (RBC) [Mass/Vol] 35.1 g/dL Normal 29.9-35.2 [facility] Comment on above: Performed By: #### A 1C #### [facility] [address] [address] [address] Gil Smith MCV (RBC) [Entitic vol] 86.2 fL Normal 80.0-94.0 [facility] Comment on above: Performed By: #### A 1C #### [facility] [address] [place] [address] Dr. Gil Smith MONO # 0.7 103/ul Normal 0.3-0.8 [facility] Comment on above: Performed By: #### A 1C #### [facility] [address] [place] [address] Dr. Gil Smith Monocytes/100 WBC (Bld) 5.3 % Normal 1.7-12.0 [facility] Comment on above: Performed By: #### A 1C #### [facility] [address] [address] [address] Gil Smith NEUT # 9.8 103/ul Critically high 1.4-6.5 [facility] Comment on above: Performed By: #### A 1C #### [facility] [address] [place] [address] Dr. Gil Smith Neutrophils/100 WBC (Bld) 76.0 % Critically high 43.0-75.0 [facility] Comment on above: Performed By: #### A 1C #### [facility] [address] [place] [address] Dr. Gil Smith Platelet mean volume (Bld) [Entitic vol] 9.4 fL Critically low 9.5-13.5 [facility] Comment on above: Performed By: #### A 1C #### [facility] [address] [address] [address] Gil Smith PLT 334 103/ul Normal 150-450 [facility] Comment on above: Performed By: #### A 1C #### [facility] [address] [place] [address] Dr. Gil Smith RBC 5.16 106/ul Normal 4.70-6.10 [facility] Comment on above: Performed By: #### A 1C #### [facility] [address] [place] [address] Dr. Gil Smith WBC 12.9 103/ul Critically high 4.0-11.0 [facility] Comment on above: Performed By: #### A 1C #### [facility] [address] [place] [address] Dr. Gil Smith PROF CHEM 8 (BAS METB)on Anion gap [Moles/Vol] 10.6 mmol/L Normal [facility] Comment on above: Performed By: #### B MP #### [facility] [address] [place] [address] Dr. Gil Smith Calcium [Mass/Vol] 9.1 mg/dL Normal 8.5-10.1 [facility] Comment on above: Performed By: #### B MP #### [facility] [address] [place] [address] Dr. Gil Smith Chloride [Moles/Vol] 101 mmol/L Normal 98-107 [facility] Comment on above: Performed By: #### B MP #### [facility] [address] [place] [address] Dr. Gil Smith CO2 [Moles/Vol] 30.7 mmol/L Normal 21.0-32.0 [facility] Comment on above: Performed By: #### B MP #### [facility] [address] [place] [address] Dr. Gil Smith Creatinine [Mass/Vol] 1.14 mg/dL Normal 0.70-1.30 [facility] Comment on above: Performed By: #### B MP #### [facility] [address] [address] [address] Gil Smith EGFR-AF SAMMARINESE >60 Normal >=60 [facility] Comment on above: Performed By: #### B MP #### [facility] [address] [address] [address] Gil Smith EGFR-NON AF SAMMARINESE >60 Normal >=60 [facility] Comment on above: Performed By: #### B MP #### [facility] [address] [address] [address] Gil Smith Glucose [Mass/Vol] 181 mg/dL Critically high 74-106 [facility] Comment on above: Performed By: #### B MP #### [facility] [address] [address] [address] Gil Smith Potassium [Moles/Vol] 4.3 mmol/L Normal 3.5-5.1 [facility] Comment on above: Performed By: #### B MP #### [facility] [address] [address] [address] Gil Smith Sodium [Moles/Vol] 138 mmol/L Normal 136-145 [facility] Comment on above: Performed By: #### B MP #### [facility] [address] [address] [address] Gil Smith Urea nitrogen [Mass/Vol] 19.0 mg/dL Critically high 7.0-18.0 [facility] Comment on above: Performed By: #### B MP #### [facility] [address] [address] [address] Gil Smith Urea nitrogen/Creatinine [Mass ratio] 16.7 mg/mg Normal [facility] Comment on above: Performed By: #### B MP #### [facility] [address] [address] [address] Gil Smith POINT OF CARE GLUCOSEon 09-0 Glucose [Mass/Vol] 115 mg/dL Critically high 74-106 [facility] Comment on above: Performed By: #### P OCGLUC #### [facility] [address] [place] [address] Dr. Gil Smith Covid-19 PCR (CVDTB)on 10-12 SARS-CoV-2 (COVID-19) RNA ITA+probe Ql (Unsp spec) Not detected Normal NOT DETECTED [facility] Comment on above: Result Comment: This test is not yet approved or cleared by the [place] FDA. When there are no FDA-approved or cleared tests available, and other criteria are met, FDA can make tests available under an emergency access mechanism called an Emergency Use Authorization (EUA). The EUA for this test is supported by the [place] of Health and Human Service's (HHS's) declaration [...] SARS-CoV-2. Performed By: #### C VDTBH #### [facility] [address] [place] [address] Dr. Gil Smith CBC AUTO DIFFon 11-01-2021 BASO # 0.0 103/ul Normal 0.0-0.1 [facility] Comment on above: Performed By: #### C BC #### [facility] [address] [place] [address] Dr. Gil Smith Basophils/100 WBC (Bld) 0.3 % Normal 0.2-2.0 [facility] Comment on above: Performed By: #### C BC #### [facility] [address] [place] [address] Dr. Gil Smith EO # 0.3 103/ul Normal 0.0-0.7 [facility] Comment on above: Performed By: #### C BC #### [facility] [address] [place] [address] Dr. Gil Smith Eosinophils/100 WBC (Bld) 2.8 % Normal 0.9-7.0 [facility] Comment on above: Performed By: #### C BC #### [facility] [address] [place] [address] Dr. Gil Smith Erythrocyte distribution width (RBC) [Ratio] 11.9 % Normal 11.0-15.0 [facility] Comment on above: Performed By: #### C BC #### [facility] [address] [place] [address] Dr. Gil Smith Hematocrit (Bld) [Volume fraction] 45.4 % Normal 42.0-54.0 [facility] Comment on above: Performed By: #### C BC #### [facility] [address] [place] [address] Dr. Gil Smith Hemoglobin (Bld) [Mass/Vol] 15.2 g/dL Normal 14.0-18.0 [facility] Comment on above: Performed By: #### C BC #### [facility] [address] [place] [address] Dr. Gil Smith IG # 0.02 10e3/ul Normal 0.00-0.03 [facility] Comment on above: Performed By: #### C BC #### [facility] [address] [place] [address] Dr. Gil Smith IG % 0.2 % Normal 0.0-0.5 [facility] Comment on above: Performed By: #### C BC #### [facility] [address] [place] [address] Dr. Gil Smith LYMPH # 2.3 103/ul Normal 1.2-3.8 [facility] Comment on above: Performed By: #### C BC #### [facility] [address] [place] [address] Dr. Gil Smith Lymphocytes/100 WBC (Bld) 26.1 % Normal 20.5-60.0 [facility] Comment on above: Performed By: #### C BC #### [facility] [facility] [address] [place] [address] Dr. Gil Smith MANUAL DIFF REQ NO Normal [facility] Comment on above: Performed By: #### C BC #### [facility] [address] [place] [address] Dr. Gil Smith MCH (RBC) [Entitic mass] 29.7 pg Normal 25.9-34.0 [facility] Comment on above: Performed By: #### C BC #### [facility] [address] [place] [address] Dr. Gil Smith MCHC (RBC) [Mass/Vol] 33.5 g/dL Normal 29.9-35.2 [facility] Comment on above: Performed By: #### C BC #### [facility] [address] [place] [address] Dr. Gil Smith MCV (RBC) [Entitic vol] 88.8 fL Normal 80.0-94.0 [facility] Comment on above: Performed By: #### C BC #### [facility] [address] [place] [address] Dr. Gil Smith MONO # 0.4 103/ul Normal 0.3-0.8 [facility] Comment on above: Performed By: #### C BC #### [facility] [address] [place] [address] Dr. Gil Smith Monocytes/100 WBC (Bld) 4.6 % Normal 1.7-12.0 [facility] Comment on above: Performed By: #### C BC #### [facility] [address] [place] [address] Dr. Gil Smith NEUT # 5.9 103/ul Normal 1.4-6.5 [facility] Comment on above: Performed By: #### C BC #### [facility] [address] [place] [address] Dr. Gil Smith Neutrophils/100 WBC (Bld) 66.0 % Normal 43.0-75.0 [facility] Comment on above: Performed By: #### C BC #### [facility] [address] [place] [address] Dr. Gil Smith Platelet mean volume (Bld) [Entitic vol] 9.3 fL Critically low 9.5-13.5 [facility] Comment on above: Performed By: #### C BC #### [facility] [address] [place] [address] Dr. Gil Smith PLT 306 103/ul Normal 150-450 [facility] Comment on above: Performed By: #### C BC #### [facility] [address] [place] [address] Dr. Gil Smith RBC 5.11 106/ul Normal 4.70-6.10 [facility] Comment on above: Performed By: #### C BC #### [facility] [address] [address] [address] Gil Smith WBC 8.9 103/ul Normal 4.0-11.0 [facility] Comment on above: Performed By: #### C BC #### [facility] [address] [place] [address] Dr. Gil Smith PROF CHEM 8 (BAS METB)on Anion gap [Moles/Vol] 9.5 mmol/L Normal [facility] Comment on above: Performed By: #### B MP #### [facility] [address] [place] [address] Dr. Gil Smith Calcium [Mass/Vol] 9.2 mg/dL Normal 8.5-10.1 [facility] Comment on above: Performed By: #### B MP #### [facility] [address] [place] [address] Dr. Gil Smith Chloride [Moles/Vol] 103 mmol/L Normal 98-107 [facility] Comment on above: Performed By: #### B MP #### [facility] [address] [place] [address] Dr. Gil Smith CO2 [Moles/Vol] 30.5 mmol/L Normal 21.0-32.0 [facility] Comment on above: Performed By: #### B MP #### [facility] [address] [place] [address] Dr. Gil Smith Creatinine [Mass/Vol] 1.00 mg/dL Normal 0.70-1.30 [facility] Comment on above: Performed By: #### B MP #### [facility] [address] [address] [address] Gil Smith EGFR-AF SAMMARINESE >60 Normal >=60 [facility] Comment on above: Performed By: #### B MP #### [facility] [address] [address] [address] Gil Smith EGFR-NON AF SAMMARINESE >60 Normal >=60 [facility] Comment on above: Performed By: #### B MP #### [facility] [address] [address] [address] Gil Smith Glucose [Mass/Vol] 120 mg/dL Critically high 74-106 [facility] Comment on above: Performed By: #### B MP #### [facility] [address] [place] [address] Dr. Gil Smith Potassium [Moles/Vol] 5.0 mmol/L Normal 3.5-5.1 [facility] Comment on above: Performed By: #### B MP #### [facility] [address] [place] [address] Dr. Gil Smith Sodium [Moles/Vol] 138 mmol/L Normal 136-145 [facility] Comment on above: Performed By: #### B MP #### [facility] [address] [place] [address] Dr. Gil Smith Urea nitrogen [Mass/Vol] 13.0 mg/dL Normal 7.0-18.0 [facility] Comment on above: Performed By: #### B MP #### [facility] [address] [place] [address] Dr. Gil Smith Urea nitrogen/Creatinine [Mass ratio] 13.0 mg/mg Normal [facility] Comment on above: Performed By: #### B MP #### [facility] [address] [place] [address] Dr. Gil Smith PROTIMEon 11-01-2021 INR Coag (PPP) [Relative time] 1.00 {INR} Normal [facility] Comment on above: Performed By: #### B MP #### [facility] [address] [place] [address] Dr. Gil Smith INR GUIDELINES SEE BELOW Normal [facility] Comment on above: Result Comment: CHUCK RED INR: 2.0 - 3.0 CONDITIONS NOT LISTED BELOW 2.5 - 3.5 FOR PROSTHETIC HEART VALVE REPLACEMENT 2.5 - 3.5 RECURRENT THROMBOSIS Performed By: #### B MP #### [facility] [address] [place] [address] Dr. Gil Smith PT Coag (PPP) [Time] 10.8 s Normal 9.0-11.6 [facility] Comment on above: Performed By: #### B MP #### [facility] [address] [place] [address] Dr. Gil Smith PTTon 11-01-2021 aPTT Coag (Bld) [Time] 27.7 s Normal 22.3-36.2 [facility] Comment on above: Performed By: #### P T, PTT #### [facility] [address] [place] [address] Dr. Gil Smith XR CHEST 2 Von [...] DANAY ROSADO Date: 2021-11-01 16:55 Normal [facility] GLYCOHEMOGLOBIN A1Con 2021 ADA RECOMMENDATION SEE BELOW Normal [facility] Comment on above: Result Comment: ADA RECOMMENDED LIMIT 4.0 - 6.0 ADA THERAPEUTIC TARGET < 7.0 ACTION SUGGESTED > 7.0 Performed By: #### B MP #### [facility] [address] [place] [address] Dr. Gil Smith Glucose [Mass/Vol] 140 mg/dL Normal [facility] Comment on above: Performed By: #### B MP #### [facility] [address] [address] [address] Gil Smith HbA1c (Bld) [Mass fraction] 6.5 % Critically high 4.5-6.2 [facility] Comment on above: Performed By: #### B MP #### [facility] [address] [address] [address] Gil Smith GLYCOHEMOGLOBIN A1Con 2021 ADA RECOMMENDATION ADA THERAPEUTIC TARGET 6.0 - 7.0 ACTION SUGGESTED > 7.0 Normal [facility] Comment on above: Performed By: #### A 1C #### [facility] [address] [address] [address] Gil Smith Glucose [Mass/Vol] 137 mg/dL Normal [facility] Comment on above: Performed By: #### A 1C #### [facility] [address] [address] [address] Gil Smith HbA1c (Bld) [Mass fraction] 6.4 % Critically high <=6.0 [facility] Comment on above: Performed By: #### A 1C #### [facility] [address] [address] [address] Gil Smith Bladder Cancer FISHon 2021 Specimen Type: Normal [facility] Comment on above: Result Comment: See report. Scanned copy available in EMR. PERFORMED BY: [address] [place] [address] PATHOLOGIST [employer] C[employer] SHEET SUPERVISOR CHANCE ALMARAZ M.D. Performed By: #### F RAYSA BLADD #### [facility] , [place] 04-21-2021 L Specimen: [id number] Received: 04/22/21 Status: DEBI Cornejorafal Num: [id number] Spec Type: Cytology Subm Dr: Randall Molina MD Tissues: A URINECYTO (URINE) Procedures: Pap Stain, Cyto Prepstain Patient Age/Sex Location Account Attending Physician Eli Garrison 71/M [place] [id number] Randall Molina MD SPEC NUM: [id number] RECD: 04/22/21 STATUS: DEBI RODGERS NUM: [id number] KENIA: 04/21/21- SUBM DR: Randlal Molina MD ENTERED: 04/22/[address] [facility] DR: SPEC TYPE: Cytology DEPT: IGNACIO ENTERED BY: [id number] RECV BY: [id number] ORDERED: Pap Stain, Cyto Prepstain ORDERED: Pap [...] findings support the above diagnosis. CPT Codes 43126 Specimen: [id number] Received: 04/22/21 Status: DEBI Rodgers Num: [id number] Spec Type: Cytology Subm Dr: Randall Molina MD Tissues: A URINECYTO (URINE) Procedures: Pap Stain, Cyto Prepstain Patient: Eli Garrison [id number] (Continued) Signed (signature on file) Ryan rC MD 04/22/21 1807 Normal [facility] PSA SCREENING [facility]on 02-12 Prostate specific Ag [Mass/Vol] 1.5 ng/mL Normal 0.0-4.0 [facility] Comment on above: Result Comment: Talita COLEMAN methodology. . According to the [place] [employer], Serum PSA should decrease and [...] disease. Performed By: #### P SASCLC #### [facility] [address] [place] [address] Dr. Gil Smith VIT D 25-OH [facility]on 2020 Vitamin D, 25-Hydroxy 32.9 ng/mL Normal 30.0-100.0 [facility] Comment on above: Result Comment: Kelly min D deficiency has been defined by the [place] of [employer] and an Endocrine Society practice guideline as a level of serum 25-OH vitamin D less than 20 ng/mL (1,2). The Endocrine Society went on to further define vitamin D insufficiency as a level between 21 and 29 ng/mL (2). 1. IOM ([place] of [employer]). 2010. Dietary reference intakes for calcium and D. [place]: The National Academies Press. 2. Pedro MF, Rosa Elena [place], Jamison XIONG, et al. Evaluation, treatment, and prevention of vitamin D deficiency: an Endocrine Society clinical practice guideline. JCEM. 2010; 96(7):1911-30. Performed By: #### B MP #### [facility] [address] [address] [address] Gil Smith CBC AUTO DIFFon 03-10-2021 BASO # 0.0 103/ul Normal 0.0-0.1 [facility] Comment on above: Performed By: #### B MP #### [facility] [address] [place] [address] Dr. Gil Smith Basophils/100 WBC (Bld) 0.5 % Normal 0.2-2.0 [facility] Comment on above: Performed By: #### B MP #### [facility] [address] [place] [address] Dr. Gil Smith EO # 0.3 103/ul Normal 0.0-0.7 [facility] Comment on above: Performed By: #### B MP #### [facility] [address] [place] [address] Dr. Gil Smith Eosinophils/100 WBC (Bld) 3.0 % Normal 0.9-7.0 [facility] Comment on above: Performed By: #### B MP #### [facility] [address] [place] [address] Dr. Gil Smith Erythrocyte distribution width (RBC) [Ratio] 12.1 % Normal 11.0-15.0 [facility] Comment on above: Performed By: #### B MP #### [facility] [address] [place] [address] Dr. Gil Smith Hematocrit (Bld) [Volume fraction] 45.2 % Normal 42.0-54.0 [facility] Comment on above: Performed By: #### B MP #### [facility] [address] [place] [address] Dr. Gil Smith Hemoglobin (Bld) [Mass/Vol] 15.1 g/dL Normal 14.0-18.0 [facility] Comment on above: Performed By: #### B MP #### [facility] [address] [place] [address] Dr. Gil Smith IG # 0.03 10e3/ul Normal 0.00-0.03 [facility] Comment on above: Performed By: #### B MP #### [facility] [address] [place] [address] Dr. Gil Smith IG % 0.4 % Normal 0.0-0.5 [facility] Comment on above: Performed By: #### B MP #### [facility] [address] [place] [address] Dr. Gil Smith LYMPH # 2.7 103/ul Normal 1.2-3.8 [facility] Comment on above: Performed By: #### B MP #### [facility] [address] [place] [address] Dr. Gil Smith Lymphocytes/100 WBC (Bld) 31.9 % Normal 20.5-60.0 [facility] Comment on above: Performed By: #### B MP #### [facility] [address] [place] [address] Dr. Gil Smith MANUAL DIFF REQ NO Normal [facility] Comment on above: Performed By: #### B MP #### [facility] [address] [place] [address] Dr. Gil Smith MCH (RBC) [Entitic mass] 29.6 pg Normal 25.9-34.0 [facility] Comment on above: Performed By: #### B MP #### [facility] [address] [place] [address] Dr. Gil Smith MCHC (RBC) [Mass/Vol] 33.4 g/dL Normal 29.9-35.2 [facility] Comment on above: Performed By: #### B MP #### [facility] [address] [place] [address] Dr. Gil Smith MCV (RBC) [Entitic vol] 88.6 fL Normal 80.0-94.0 [facility] Comment on above: Performed By: #### B MP #### [facility] [address] [place] [address] Dr. Gil Smith MONO # 0.4 103/ul Normal 0.3-0.8 [facility] Comment on above: Performed By: #### B MP #### [facility] [address] [place] [address] Dr. Gil Smith Monocytes/100 WBC (Bld) 4.9 % Normal 1.7-12.0 [facility] Comment on above: Performed By: #### B MP #### [facility] [address] [place] [address] Dr. Gil Smith NEUT # 4.9 103/ul Normal 1.4-6.5 [facility] Comment on above: Performed By: #### B MP #### [facility] [address] [place] [address] Dr. Gil Smith Neutrophils/100 WBC (Bld) 59.3 % Normal 43.0-75.0 [facility] Comment on above: Performed By: #### B MP #### [facility] [address] [place] [address] Dr. Gil Smith Platelet mean volume (Bld) [Entitic vol] 9.0 fL Critically low 9.5-13.5 [facility] Comment on above: Performed By: #### B MP #### [facility] [address] [place] [address] Dr. Gil Smith PLT 307 103/ul Normal 150-450 [facility] Comment on above: Performed By: #### B MP #### [facility] [address] [place] [address] Dr. Gil Smith RBC 5.10 106/ul Normal 4.70-6.10 [facility] Comment on above: Performed By: #### B MP #### [facility] [address] [place] [address] Dr. Gil Smith WBC 8.3 103/ul Normal 4.0-11.0 [facility] Comment on above: Performed By: #### B MP #### [facility] [address] [place] [address] Dr. Gil Smith GLYCOHEMOGLOBIN A1Con 2020 ADA RECOMMENDATION ADA THERAPEUTIC TARGET 6.0 - 7.0 ACTION SUGGESTED > 7.0 Normal [facility] Comment on above: Performed By: #### A 1C #### [facility] [address] [place] [address] Dr. Gil Smith Glucose [Mass/Vol] 131 mg/dL Normal [facility] Comment on above: Performed By: #### A 1C #### [facility] [address] [place] [address] Dr. Gil Smith HbA1c (Bld) [Mass fraction] 6.2 % Critically high <=6.0 [facility] Comment on above: Performed By: #### A 1C #### [facility] [address] [place] [address] Dr. Gil Smith MICROALBUMIN, RAND URon 12-2 mALB <1.3 Normal <=30.0 [facility] Comment on above: Performed By: #### B MP #### [facility] [address] [place] [address] Dr. Gil Smith PROF CHEM 8 (BAS METB)on Anion gap [Moles/Vol] 8.6 mmol/L Normal [facility] Comment on above: Performed By: #### B MP #### [facility] [address] [place] [address] Dr. Gil Smith Calcium [Mass/Vol] 9.1 mg/dL Normal 8.4-10.2 [facility] Comment on above: Performed By: #### B MP #### [facility] [address] [place] [address] Dr. Gil Smith Chloride [Moles/Vol] 103 mmol/L Normal 98-107 [facility] Comment on above: Performed By: #### B MP #### [facility] [address] [place] [address] Dr. Gil Smith CO2 [Moles/Vol] 31.5 mmol/L Critically high 22.0-30.0 [facility] Comment on above: Performed By: #### B MP #### [facility] [address] [place] [address] Dr. Gil Smith Creatinine [Mass/Vol] 0.89 mg/dL Normal 0.66-1.25 [facility] Comment on above: Performed By: #### B MP #### [facility] [address] [place] [address] Dr. Gil Smith EGFR-AF SAMMARINESE >60 Normal >=60 [facility] Comment on above: Performed By: #### B MP #### [facility] [address] [place] [address] Dr. Gil Smith EGFR-NON AF SAMMARINESE >60 Normal >=60 [facility] Comment on above: Performed By: #### B MP #### [facility] [address] [address] [address] Gil Smith Glucose [Mass/Vol] 117 mg/dL Critically high 74-106 [facility] Comment on above: Performed By: #### B MP #### [facility] [address] [id number] [address] Gil Smith Potassium [Moles/Vol] 4.1 mmol/L Normal 3.4-5.0 [facility] Comment on above: Performed By: #### B MP #### [facility] [address] [address] [address] Gil Smith Sodium [Moles/Vol] 139 mmol/L Normal 137-145 [facility] Comment on above: Performed By: #### B MP #### [facility] [address] [address] [address] Gil Smith Urea nitrogen [Mass/Vol] 13.0 mg/dL Normal 9.0-20.0 [facility] Comment on above: Performed By: #### B MP #### [facility] [address] [address] [address] Gil Smith Urea nitrogen/Creatinine [Mass ratio] 14.6 mg/mg Normal [facility] Comment on above: Performed By: #### B MP #### [facility] [address] [address] [address] Gil Smith Bladder Cancer [facility] 2020 Specimen Type: Normal [facility] Comment on above: Result Comment: See report. Scanned copy available in EMR. PERFORMED BY: [address] [place] [address] PATHOLOGIST [employer] CEMENT SHEET SUPERVISOR CHANCE ALMARAZ M.D. Performed By: #### F RAYSA BLADD #### [facility] , [facility] 01-20-2021 L Specimen: [id number] Received: 01/21/21 Status: DEBI Vishal Num: [id number] Spec Type: Cytology Subm Dr: Randall Molina MD Tissues: A URINECYTO (URINE-BLADDER WASH) Procedures: Pap Stain, Cyto Prepstain Patient Age/Sex Location Account Attending Physician Eli Garrison/[place] [id number] Randall Molina MD SPEC NUM: [id number] RECD: 01/21/21 STATUS: DEBI VISHAL NUM: [id number] KENIA: 01/20/21- SUBM DR: Randall Molina MD ENTERED: 01/21/[address]: SPEC TYPE: Cytology DEPT: ADELAIDA ENTERED BY: [id number] RECV BY: [id number] ORDERED: Pap Stain, Cyto Prepstain ORDERED: Pap [...] findings support the above diagnosis. CPT Codes 92201 Specimen: [id number] Received: 01/21/21 Status: DEBI Rodgers Num: [id number] Spec Type: Cytology Subm Dr: Randall Molina MD Tissues: A URINECYTO (URINE-BLADDER WASH) Procedures: Pap Stain, Cyto Prepstain Patient: Eli Garrison [id number] (Continued) Signed (signature on file) Ryan Cr MD 01/23/21 [facility] Vital Signs Date Time Vital Sign Value Performing Clinician Facility 02-17-2023 08:30-0500 Body height [employer] Other [employer] Other 02-17-2023 08:30-0500 Body mass index (BMI) [Ratio] 29.43 kg/m2 [facility] Other [employer] Other 02-17-2023 08:30-0500 Body temperature 97.3 [degF] [facility] Other [facility] Other 02-17-2023 08:30-0500 Body weight 91.72 kg [facility] Other [employer] Other 02-17-2023 08:30-0500 Diastolic blood pressure 65 mm[Hg] [employer] Other [employer] Other 02-17-2023 08:30-0500 Respiratory rate 14 /min [facility] Other [employer] Other 02-17-2023 08:30-0500 SaO2% (BldA) [Mass fraction] 96 % [facility] Other [employer] Other 02-17-2023 08:30-0500 Systolic blood pressure 110 mm[Hg] [employer] Other [facility] Other 10-07-2022 09:00-0400 Body height Atnoni Ball Other [employer] Other 10-07-2022 09:00-0400 Body mass index (BMI) [Ratio] 29.72 kg/m2 [employer] Other [facility] Other 10-07-2022 09:00-0400 Body weight 92.63 kg [facility] Other [facility] Other 10-07-2022 09:00-0400 Diastolic blood pressure 69 mm[Hg] Antoni [facility] Other [facility] Other 10-07-2022 09:00-0400 Respiratory rate 12 /min Antnoi [employer] Other [employer] Other 10-07-2022 09:00-0400 Systolic blood pressure 138 mm[Hg] [facility]i [facility] Other [facility] Other 07-06-2022 09:30-0400 Body height Antoni Ball Other [employer] Other 07-06-2022 09:30-0400 Body mass index (BMI) [Ratio] 30.33 kg/m2 [facility] Other [employer] Other 07-06-2022 09:30-0400 Body weight 94.53 kg Antoni Ball Other [employer] Other 07-06-2022 09:30-0400 Diastolic blood pressure 76 mm[Hg] [facility] Other [facility] Company Other 07-06-2022 09:30-0400 Respiratory rate 12 /min Antoni Ball Other [employer] Other 07-06-2022 09:300400 Systolic blood pressure 118 mm[Hg] Antoni Lalit Other [employer] Other Encounters Encounter Date Encounter Type Care Provider Facility Start: 11-15-2023 ambulatory Randall MOLINA Facili ty:[facility] Start: 05-31-2023 End: 05-31-2023 ambulatory Randall MOLINA Facility:[facility] Start: 04-11-2023 End: 04-11-2023 ambulatory Antoni Cohn Other [employer] Other Start: 04-11-2023 Telephone encounter Antoni HENAO [facility] Start: 04-05-2023 End: 04-05-2023 ambulatory Antoni Cohn Other [employer] Other Start: 04-05-2023 Telephone encounter Antoni HENAO [facility] Start: 02-17-2023 End: 02-17-2023 ambulatory Antoni Cohn Other [employer] Other Start: 02-17-2023 Patient encounter procedure Antoni Cohn [facility] Start: 10-12-2022 End: 10-12-2022 ambulatory Antoni Cohn Other [employer] Other Start: 10-12-2022 Telephone encounter Antoni Cohn [facility] Start: 10-07-2022 End: 10-07-2022 ambulatory Antoni Cohn Other [employer] Other Start: 10-07-2022 Office outpatient vi sit 25 minutes Antoni Cohn [facility] Start: 07-06-2022 End: 07-06-2022 ambulatory Antoni Cohn Other [employer] Other Start: 07-06-2022 Office outpatient vi sit 15 minutes Antoni Cohn [facility] Start: 02-28-2022 End: 03-01-[address] ANTONI COHN Facility: Start: 02-15-2022 Adult health examination Zack Cohn Other [employer] Other Start: 02-15-2022 Encounter for genera l adult medical examination without abnormal findings Antoni Cohn Other [employer] Other Start: 11-13-2021 End: 11-14-[address] ANTONI COHN Facility:[facility] Start: 11-11-2021 End: 11-11-[address] RANDALL MOLINA Facility:[facility] Start: 11-09-2021 Encounter for preprocedural laboratory examination DR RANDALL MOLINA [facility] Start: 11-08-2021 End: 11-09-[address] RANDALL MOLINA Facility:[facility] Start: 11-08-2021 End: 11-09-2021 Encounter for preprocedural laboratory examination DR RANDALL MOLINA Facility:[facility] Start: 11-03-2021 Encounter for preprocedural cardiovascular examination DR RANDALL MOLINA [facility] Start: 11-03-2021 Encounter for preprocedural laboratory examination DR RANDALL MOLINA [facility] Start: 11-01-2021 End: 11-02-[address] RANDALL MOLINA Facility:[facility] Start: 11-01-2021 End: 11-02-2021 Encounter for preprocedural cardiovascular examination DR RANDALL MOLINA Facility:[facility] Start: 10-12-2021 End: 10-13-[address] ANTONI COHN Facility:[facility] Start: 07-01-2021 End: 07-02-[address] ANTONI COHN Facility:[facility] Start: 03-10-2021 End: 03-11-[address] ANTONI COHN Facility:[facility] Start: 01-27-2019 Encounter for preprocedural cardiovascular examination Antoni Cohn Other [employer] Other Start: 01-27-2019 Preoperative cardiovascular examination Antoni Cohn Other [employer] Other Procedures Date Procedure Procedure Detail Performing Clinician Start: 11-01-[address] LAMIN MOLINA Comment on above: Performed By: #### B MP #### [facility] [address] [place] [address] Dr. Gil Smith Start: 11-08-2013 Pre-surgery evaluation Antoni Cohn Other Start: 10-14-2013 Screening for malign ant neoplasm of prostate Antoni Cohn Other Depression screening Landon Cohn Other Screening for malign ant neoplasm of prostate Antoni Cohn Other Immunizations Immunization Date Immunization Notes Care Provider Glenn velazco 06-06-2017 diphtheria, tetanus toxoids and acellular pertussis vaccine, unspecified formulation Antoni Cohn Other [employer] Other 01-18-2017 diphtheria, tetanus toxoids and acellular pertussis vaccine, unspecified formulation Antoni Cohn Other [employer] Other Payers Date Payer Category Payer Medicare [id number] 1959 Private Health Insurance [id number] 1950 Unknown [id number] 2.16.84 [id number] 1950 Unknown [id number] 2.16.84 [id number] 1950 Unknown [id number] 2.16.84 [id number] 1950 Unknown [id number] 2.16.84 [id number] 1950 Unknown [id number] 2.16.84 [id number] 1950 Unknown [id number] 2.16.84 [id number] 1950 Unknown [id number] 2.16.84 [id number] 1950 Unknown [id number] 2.16.84 [id number] 1950 Unknown [id number] 2.16.8 [id number] 1950 Unknown [id number] 2.16.8 [id number] 1950 Unknown [id number] 2.16.8 [id number] Social History Date Type Detail Facility Sex Assigned At [employer] Other Medical Equipment Procedure Code Equipment Code Equipment Origin al Text Equipment Identifier Dates Start: 10-07-2022 Evaluation note 04-05-2023 Note Date & Type Note Facility 04-05-2023 Evaluation note Encounter Date Diagnosis Assessment Notes Mar, Hyperlipemia (ICD-10 - E78.5) [facility] [employer] Other Evaluation note 02-17-2023 Note Date & [...] (ICD-10 - Z12.5) Yearly AGUILA and PSA [employer] Other Evaluation note 10-07-2022 Note Date & [...] in remission (ICD-10 - F17.211) Continue abstinence [employer] Other Evaluation note 07-06-2022 Note Date & [...] exercise to achieve/mainta in a normal BMI. [employer] Other Evaluation note Note Date & Type Note Facility Evaluation note No Information [employer] Other History general Narrative - Reported Note [...] PYELOGRAPHY 2019 Hospitalization History SEE SURGICAL HX [employer] Other History general Narrative - Reported Note [...] PYELOGRAPHY 2019 Hospitalization History SEE SURGICAL HX [employer] Other History general Narrative - Reported Note [...] RETROGRADE PYELOGRAPHY 2019 Hospitalization History SEE SURGICAL [employer] Other Summary Purpose Family History No Family History Records FoundNo Family History Records FoundNo Family History Records Found Advance Directives No Advanced Directives Records FoundNo Advanced Directives Records FoundNo Advanced Directives Records Found Additional Source Comments (unrecognized sect ion and content) No Status Records FoundNo Status Records FoundNo Status Records Found INFORMATION SOURCE (unrecogn ized section and content) DATE CREATED AUTHOR 05/06/2021 [facility] DATE CREATED AUTHOR AUTHOR'S ORGANIZ ATION 03/09/2022 [facility] DATE CREATED AUTHOR AUTHOR'S ORGANIZ ATION 10/02/2023 [facility] REASON FOR VISIT (unrecogniz ed [...] BE BASED ON THE PRIMARY CLINICAL RECORDS. [employer] [facility]. provides no warranty or guarantee of the accuracy or completeness of information in this document.
[2023-11-08 11:17] LABS: Prostate Specific Antigen Dx 2.59 ng/mL (<=4.00)
== END 2023-11-08 09:50 | disposition home or self-care (01) ==
LOC: LAB 09:51
PROVIDERS: PCP Internal Medicine; Visit Provider Nurse Practitioner
DX: R97.20 Elevated prostate specific antigen [PSA] (principal)
CPT/HCPCS: 36415; 84153

== ENCOUNTER 2023-12-26 13:36 | Emergency (ER) | payer MEDICARE, OTHER, SELFPAY ==
[2023-12-26] VITALS (37 sets, daily range): BP systolic 115–147; BP diastolic 59–84; PULSE 63–78; TEMP 36.8; O2SAT 95–100; BMI 30.4
--- NOTE | 2023-12-26 13:38 | XR_ITS ---
The [address] [address] Patient Name: ELI GIFFORD MRN: [id number] date: 1950 Sex: M Assigned Patient Location: ER Current Patient Location: ED.MAIN Accession/Order Number: [id number] Exam Date: 12/26/2023 13:58 Report Date: 12/26/2023 14:37 At the request of: GABRIEL PUCKETT Procedure: XR chest 1V EXAMINATION: XR chest 1V HISTORY: Chest pain COMPARISON: No relevant comparison available. TECHNIQUE: ap port FINDINGS: LUNGS: No significant pulmonary parenchymal abnormalities. VASCULATURE: No increased pulmonary vasculature. PLEURA: No pneumothorax, effusion, or pleural thickening. CARDIAC: No cardiomegaly or cardiac silhouette abnormality. MEDIASTINUM: No visible mass or adenopathy. BONES: No fracture or visible bone lesion. OTHER: Negative. XR/XR chest 1V IMPRESSION: No acute disease. Electronically authenticated by: CHUCK HANNA Date: 12/26/2023 14:37
--- NOTE | 2023-12-26 13:38 | ECG_ITS ---
The [facility] Test Date: 2023-12-26 Pat Name: ELI GIFFORD Department: Room: - Gender: Male Hse Coordinator: : 1950 Requested By: MELCHOR MONET Order Number: [id number] Reading MD: MELCHOR MONET Measurements Intervals [place] Rate: 70 P: 50 VT: 148 QRS: -68 QRSD: 134 T: 91 QT: 402 QTc: 424 Interpretive Statements 1100 Sinus rhythm 2450 Right bundle branch block 2630 Left anterior fascicular block 9150 abnormal ECG Compared to ECG 11/13/2021 20:35:24 Left anterior fascicular block now present Left-axis deviation no longer present Electronically Signed On 12-26-2023 22:39:30 EDT by MELCHOR MONET
--- NOTE | 2023-12-26 13:52 | ED_ITS ---
HPI - Chest Pain General Chief Complaint: Chest Pain Stated Complaint: CHEST PAIN Time Seen by Provider: 12/26/23 13:37 Source: patient Mode of arrival: walk-in Limitations: no limitations History of Present Illness HPI narrative: Patient is a pleasant 73-year-old male who presents to the emergency department for the evaluation of intermittent chest pain over the last week. Patient describes exertional chest pain in the center of his chest, he states it is a pressure. No radiation to the jaw or the arm. He denies abdominal pain. He states he does have a mild cough. He smokes cigars intermittently. He has not had any peripheral edema. He denies any history of coronary artery disease or stroke. He believes he had a stress test about 10 years ago that was normal at the time of a knee replacement. He takes medication for high blood pressure, cholesterol and diabetes. Risk Factors Coronary artery disease risk factors: diabetes, smoking history, hyperlipidemia and hypertension Related Data Home Medications ?Medication ?Instructions ?Recorded ?Confirmed albuterol sulfate 90 mcg/actuation 2 puff inhalation Q6H PRN 12/26/23 12/26/23 aerosol inhaler shortness of breath or wheezing atorvastatin 10 mg tablet 10 mg PO .qhs 12/26/23 12/26/23 lisinopril 20 mg tablet 20 mg PO DAILY 12/26/23 12/26/23 metformin 1,000 mg tablet 1,000 mg PO DAILY 12/26/23 12/26/23 Allergies Allergy/AdvReac Type Severity Reaction Status Date / Time No Known Drug Allergies Allergy Verified 12/26/23 13:43 Review of Systems ROS Constitutional Denies: fever or chills Ears, nose, mouth, and throat Denies: throat pain Cardiovascular Reports: chest pain; Denies: palpitations, edema or swelling of feet/ankles Respiratory Denies: shortness of breath or cough Gastrointestinal Denies: nausea or vomiting Musculoskeletal Denies: back pain Neurological Denies: numbness in extremities or weakness in extremities Hematologic/Lymphatic Denies: easy bruising or easy bleeding PFSH PFS Social History Little interest or pleasure in doing things: not at all Feeling down, depressed, or hopeless: not at all Exam Narrative Exam Narrative: Gen.: Awake, alert, in no distress Head: Normocephalic, atraumatic ENT: Moist mucous membranes Respiratory: No respiratory distress, lungs clear bilaterally Cardio: Regular rate and rhythm Gastrointestinal: Abdomen is soft, nondistended and nontender to palpation Extremities: Moves extremities equally, no pedal edema Psych: Normal mood and affect Neuro: No focal neuro deficit Skin: Warm, dry, intact Constitutional Vital Signs, click to edit/add: Last Vital Signs Temp 98.3 F 12/26/23 13:43 Pulse 73 12/26/23 13:43 Resp 18 12/26/23 13:43 BP 147/73 H 12/26/23 13:43 Pulse Ox 99 12/26/23 13:43 O2 Del Method Room Air 12/26/23 13:43 Course Vital Signs Vital signs: Vital Signs Temperature 98.3 F 12/26/23 13:43 Pulse Rate 73 12/26/23 13:43 Respiratory Rate 18 12/26/23 13:43 Blood Pressure 147/73 H 12/26/23 13:43 Pulse Oximetry 99 12/26/23 13:43 Oxygen Delivery Method Room Air 12/26/23 13:43 Temperature 98.3 F 12/26/23 13:43 Pulse Rate 73 12/26/23 13:43 Respiratory Rate 18 12/26/23 13:43 Blood Pressure 147/73 H 12/26/23 13:43 Pulse Oximetry 99 12/26/23 13:43 Oxygen Delivery Method Room Air 12/26/23 13:43 MDM - Chest Pain MDM Narrative Medical decision making narrative: After my evaluation of the patient initially, he was given aspirin. He has no other complaints of pain in the emergency department. Vital signs are stable. Laboratory studies reviewed and noted showing that the patient has an elevated troponin of 1744. No significant EKG change from EKG 11/13/2021. 1433: I made the patient and his family member at bedside aware of his results, patient would like to be transferred to [facility] for cardiac evaluation. He continues to be pain-free in the ER. Heparin drip was started for the patient. 1535: Patient accepted by Dr. Singleton for transfer to the hospitalist service at [facility], probable cardiac catheterization tomorrow. Repeat troponin obtained. 1620: Patient accepted by Dr. Bailon for transfer to the hospitalist service. Patient is stable at this time. Continues to be pain-free with stable cardiac monitoring. Critical care time 35 min SHARED APC VISIT, PHYSICIAN ATTESTATION: [id number] I performed a substantive part of the MDM during the patient?s E/M visit. I personally evaluated and examined the patient. I personally made or approved the documented management plan and acknowledge its risk of complications. Medical Records Data Attestation: I reviewed the patient's medical records. Lab Data Attestation: I reviewed the patient's lab results. Labs: Lab Results 12/26/23 Range/Units 13:53 WBC 11.4 H (4.0-11.0) 10^3/uL RBC 4.95 (4.70-6.10) 10^6/uL Hgb 15.2 (14.0-18.0) g/dL Hct 43.8 (42.0-54.0) % MCV 88.5 (80.0-94.0) fL MCH 30.7 (25.9-34.0) pg MCHC 34.7 (29.9-35.2) g/dL RDW 11.9 (11.0-15.0) % Plt Count 317 (150-450) 10^3/uL MPV 9.3 L (9.5-13.5) fL Neut % (Auto) 63.5 (43.0-75.0) % Lymph % (Auto) 29.2 (20.5-60.0) % [place] % (Auto) 4.7 (1.7-12.0) % Eos % (Auto) 2.1 (0.9-7.0) % Baso % (Auto) 0.3 (0.2-2.0) % Neut # (Auto) 7.2 H (1.4-6.5) 10^3/uL Lymph # (Auto) 3.3 (1.2-3.8) 10^3/uL [place] # (Auto) 0.5 (0.3-0.8) 10^3/uL Eos # (Auto) 0.2 (0.0-0.7) 10^3/uL Baso # (Auto) 0.0 (0.0-0.1) 10^3/uL Abs Immat Gran (auto) 0.02 (0.00-0.03) 10^3/uL Imm/Tot Granulo (auto) 0.2 (0.0-0.5) % PT 10.3 (9.0-11.6) sec INR 0.97 Sodium 140 (136-145) mmol/L Potassium 4.0 (3.5-5.1) mmol/L Chloride 103 (98-107) mmol/L Carbon Dioxide 31.1 (21.0-32.0) mmol/L Anion Gap 9.9 BUN 9.0 (7.0-18.0) mg/dL Creatinine 1.06 (0.70-1.30) mg/dL Est GFR ( Amer) >60 (>=60 mL/min/1.73m^2) Est GFR (Non-Af Amer) >60 (>=60 mL/min/1.73m^2) BUN/Creatinine Ratio 8.5 Glucose 179 H (74-106) mg/dL Calcium 9.3 (8.5-10.1) mg/dL Total Bilirubin 0.4 (0.2-1.0) mg/dL AST 21 (15-37) U/L ALT 24 (16-63) U/L Alkaline Phosphatase 105 (46-116) U/L Troponin I High Sens 1744.0 H* (4.0-76.1) pg/mL NT-Pro-B Natriuret Pep 511.0 (<=900.0) pg/mL Total Protein 7.0 (6.4-8.2) g/dL Albumin 3.8 (3.4-5.0) g/dL Globulin 3.2 g/dL Albumin/Globulin Ratio 1.2 Imaging Data Chest x-ray: Attestation: I have reviewed the pertinent imaging results. Radiologist's impression: ITS Impressions Chest X-Ray 12/26/23 13:38 IMPRESSION: No acute disease. Electronically authenticated by: CHUCK HANNA Date: 12/26/2023 14:37 ECG Data Attestation: I personally reviewed and interpreted this ECG as follows: (Normal sinus rhythm at a rate of 70 with a right bundle branch block, mild ST depression noted in the anterolateral leads with no acute ST elevation or ectopy. EKG reviewed by attending physician.) Heart Score History: Moderately Suspicious ECG: NS Repolarization Age: >65 years Risk Factors: >3 Risk Factors/ HX of CAD:2 Troponin: >3X Normal Limit Total Heart Score Recommendations & Risks:: 8 Critical Care Time Critical Care Time Critical Care Time: Yes Total Critical Care Time: 35 Attestation: 35 minutes of critical care time for diagnosis of non-STEMI, initiation of IV heparin and transfer to tertiary care facility Discharge Plan Discharge Chief Complaint: Chest Pain Clinical Impression: Chest pain, Non-ST elevated myocardial infarction (non-STEMI) Patient Disposition: [facility] Time of Disposition Decision: 16:21 Discharge Location: [facility] Condition: Good Mode of Transportation: EMS Prescriptions / Home Meds: No Action lisinopril 20 mg tablet 20 mg PO DAILY metformin 1,000 mg tablet 1,000 mg PO DAILY albuterol sulfate 90 mcg/actuation HFA aerosol inhaler 2 puff INHALATION Q6H PRN (Reason: shortness of breath or wheezing) atorvastatin 10 mg tablet 10 mg PO .qhs Print Language: Mauritian Referrals: Antoni Cohn DO [Primary Care Provider] - 1 week
[2023-12-26 13:58] LABS: Basophils Percent Auto 0.3 % (0.2-2.0); Eosinophils Absolute Auto 0.2 10^3/uL (0.0-0.7); Eosinophils Percent Auto 2.1 % (0.9-7.0); Hematocrit 43.8 % (42.0-54.0); Hemoglobin 15.2 g/dL (14.0-18.0); Immature Granulocytes Abs Auto 0.02 10^3/uL (0.00-0.03); Immature Granulocytes Pct Auto 0.2 % (0.0-0.5); Lymphocytes Absolute Auto 3.3 10^3/uL (1.2-3.8); Lymphocytes Percent Auto 29.2 % (20.5-60.0); Mean Corpuscular HGB Conc 34.7 g/dL (29.9-35.2); Mean Corpuscular Hemoglobin 30.7 pg (25.9-34.0); Mean Corpuscular Volume 88.5 fL (80.0-94.0); Mean Platelet Volume 9.3 fL (9.5-13.5); Monocytes Absolute Auto 0.5 10^3/uL (0.3-0.8); Monocytes Percent Auto 4.7 % (1.7-12.0); Neutrophils Absolute Auto 7.2 10^3/uL (1.4-6.5); Neutrophils Percent Auto 63.5 % (43.0-75.0); Platelet Count 317 10^3/uL (150-450); Red Blood Count 4.95 10^6/uL (4.70-6.10); Red Cell Distribution Width 11.9 % (11.0-15.0); White Blood Count 11.4 10^3/uL (4.0-11.0)
--- OUTSIDE RECORDS SUMMARY | 2023-12-26 14:12 | XMS_ITS | CCD ---
Author Organization [facility] Team Providers Care Mill Tender Second Operator Name Role Phone MACI, DR CAPUTO Admitting Unavailable MOLINA, DR CAPUTO Attending Unavailable BALL, DR ROCHE Primary Care Unavailable MOLINA, DR CAPUTO Consulting Unavailable CÉSAR, ALEKSANDAR Consulting Unavailable SANDRA, SHANA GLVOER Consulting Unavaila ble BALL, DR ROCHE Admitting [...] Referring Unavailable MOLINA, DR CAPUTO Consulting Unavailable Ball, Antoni Unavailable Randall MOLNIA Attending Unavailable MOLINA, Randall Garcia Admitting Unavailable MOLINA, Randall Garcia Attending Unavailable MOLINA, Randall Garcia Attending Unavailable MOLINA, Randall Garcia Admitting Unavailable MOLINARandall Attending Unavailable Allergies Allergy Classification Reported Allergen(s) Allergy Type Date of Onset Reaction(s) Facility (2 sources) patient allergy list reviewed by nurse or physicia Propensity to adverse reactions 8 Comment:Done Sicubo Other (1 source) No Known Medication Allergies; Translations: [No Known Medication Allergies] Propensity to adverse reactions (disorder) [facility] Repository Medications Current Medications Medication Drug Class(es) Dates Sig (Normalized) Sig (Original) atorvastatin 10 mg oral tablet (2 sources) HMG-CoA Reductase Inhibitor Start: 02-22-2023 take 1 tablet by mouth once daily in the evening Atorvastatin Calcium 10 MG 1 tablet Orally Once a day, in evening for 90 days 13 Feb, 2023 Active lisinopril 20 mg oral tablet (6 [...] foot] Chronic Other aftercare (2 sources) 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; Translations: [OTH JAIL CURRENT DRUG THERAPY] Onset: 11-17-2021 Episodic Other aftercare (1 source) Long-term current use of drug therapy; Translations: [Other [place] (current) drug therapy] Episodic Other and unspecified [...] Onset: 06-07-2017 Episodic Other aftercare (1 source) 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 Interpretation - The [facility] FISH study detected normal [...] be correlated with cytology and cystoscopy results.* MicroScopic Description - Scant cellularity and degenerative changes. MicroScopic Description - Electronically signed by : on: 11/27/2023 11:23:08 Performed By: #### 1 [id number] #### [facility] [address] [place] [address] Ambulatory Visit Summaryon 0 11-15-2023 Ambulatory Visit Summary Ambulatory Visit Summary ELI GARRISON :1950 Visit Date:11/15/2023 Ambulatory Visit Instructions Your Diagnosis Hx of bladder cancer Lesion of bladder Elevated PSA Enlarged prostate with urinary obstruction Your Care Team Attending Physician - MACI BLAKE, Randall Garcia Primary Care Physician - ANTONI COHN DO This Is Your Medications List ciprofloxacin (Cipro 500 mg Tab) Contact prescribing physician if questions or concerns lisinopril (lisinopril 20 mg Tab) metformin (metformin 1000 mg Tab) Procedures Performed Cystoscopy (11/15/2023), Cystoscopy (05/31/2023), Cystoscopy (05/18/2022), Cystoscopy (10/27/2021), Cystoscopy (07/28/2021), Cystoscopy (04/21/2021), Cystoscopy (01/20/2021), Cystoscopy (10/14/2020), Cystoscopy (06/17/2020), Cystoscopy (03/03/2020), Ablation of neoplasm of urinary bladder using laser (11/19/2019), Cystoscope (11/05/2019), Cystoscopy (07/30/2019), Cystoscope (02/20/2019), Cystoscopy (11/27/2018), Cystoscopy (08/21/2018), TURP - Transurethral resection of prostate (02/15/2018), Cystoscopy and transurethral resection of bladder tumour (01/25/2018), Urodynamics (01/16/2018), Colonoscopy, Knee replacement. Discharge Vitals Temperature (Temporal Artery) 37 ?C Heart Rate (Peripheral) 82 Respiratory Rate 17 Blood Pressure 137/79 Height 175 cm Height 69 in Weight 88 kg Weight 193.6 lb BMI 28.73 What to do next You Need to Schedule the Following Appointments Follow Up with MACI BLAKE, AUBREY Renteria When: Where: [facility] [address] [place] [address]- Medications What How Much When Instructions Unchanged ciprofloxacin (Cipro 500 mg Tab) 1 Tablets By Mouth Every day Take 1 tablet the day before the procedure and 1 tablet after the procedure Unchanged lisinopril (lisinopril 20 mg Tab) Contact prescribing physician if questions or concerns Unchanged metformin (metformin 1000 mg Tab) 1 Tablets By Mouth 2 times a day Contact prescribing physician if questions or concerns Medications and Immunizations Administered Given lidocaine Top 2% Gel w/Appl 6 mL, 6 mL, Topical. For: Hx of bladder cancer, Lesion of bladder, Elevated PSA, Enlarged prostate with urinary obstruction Allergies No Known Medication Allergies Problems Ongoing - Any problem that you are currently receiving treatment for. Bladder cancer BMI 28.0-28.9,adult Diabetes Elevated PSA Enlarged prostate with urinary obstruction History of skin cancer History of urinary retention Hx of bladder cancer Hx of hepatitis Hypertension Smoker Historical - Any problem that you are no longer receiving treatment for. Lesion of bladder Patient Survey You may receive a survey via text or e-mail asking about your office visit. Please share your experience with us by completing your survey. We appreciate your feedback and thank you for choosing us for your care. Education Materials Cancer Screening for Males A cancer screening is a test or exam that checks for cancer. Work with your health care provider to create a cancer screening schedule that protects your health. Who should have screening? All people who are male should be considered for screening of certain cancers, including colorectal cancer, prostate cancer, lung cancer, and skin cancer. Your health care provider may recommend screenings for other types of cancer if: ? You have had cancer before. ? You have a family member with cancer. ? You have genes that could increase the risk of cancer. ? You have risk factors for certain cancers, such as current or past use of tobacco products or being overweight. What are the benefits of screening? Cancer screening is done to look for cancer in the very early stages, before it spreads and becomes harder to treat and before you would start to notice symptoms. Finding cancer early improves the chances of successful treatment. It may save your life. When should I be screened for cancer? When you should be screened for cancer depends on: ? Your age. ? Your medical history and your family's medical history. ? Certain lifestyle factors, such as smoking or other use of tobacco products. ? Environmental exposure, such as to asbestos. How is screening done? Colorectal cancer Colorectal cancer screening looks for cancer or for growths called polyps that often form before cancer starts. Tests to look for cancer or polyps include: ? Colonoscopy or flexible sigmoidoscopy. For these procedures, a flexible tube with a small camera is inserted into the rectum. ? CT colonography. This test uses X-rays and a contrast dye to check the colon for polyps. Tests to look for cancer in the stool (feces) include: ? Guaiac-based fecal occult blood test (FOBT). This test can find blood in stool. It can be done at home with a kit. ? Fecal immunochemical test (FIT). This test can find blood in stool. For this test, (more content not included)... Normal [facility] Reminderson 09-04-2024 Reminders Reminders - From: Sammie Padilla To: VEENA Molina; Sent: 11/15/2023 07:59:38 EDT Show up: 09/10/2024 07:59:00 EDT Subject: cysto/fish/cytol Due Date/Time: 10/07/2024 07:59:00 EDT Reminder/Recall Patient is due in Nov 2024 for 1 year cysto/fish/cytol, bt ck (psa) Normal [facility] Fish and Urine Cyt o ([facility])on 11-15-2023 [facility] Method of Extraction Voided Normal [facility] Comment on above: Performed By: #### 1 [id number] #### [facility] [address] [place] [address] [facility] Number of Jars 1 Invalid Interpretation Code [facility] Comment on above: Performed By: #### 1 [id number] #### [facility] [address] [place] [address] [facility] Specimen Urine Normal [facility] Comment on above: Performed By: #### 1 [id number] #### [facility] [address] [place] [address] [facility] Type of Service Technical Only Normal [facility] Comment on above: Performed By: #### 1 [id number] #### [facility] [address] [id number] Urology Office/Clinic Noteon 11-15-2023 Urology Office/Clinic Note Urology Office/Clinic Note Chief Complaint hx of bladder cancer HPI Staff Pt here for a 6 mos cysto, FISH/cytology due to hx of bladder cancer. Abx taken. PSA: 06/09/23 - 2.42 History of Present Illness Tests reviewed: reviewed cysto note, PSAs I have reviewed the previous health record [...] HPI. Physical Exam Vitals & Measurements T: 37 ?C(Temporal Artery) HR: 82(Peripheral) RR: 17 BP: 137/79 HT: 69 in HT: 175 cm WT: [...] Urethra is: Normal The Prostatic Urethra is: _ Open. The Bladder: _No abnormalities that were visualized at the last cysto, no b.t. Trabeculated: Mild (1) The Ureteral orifices: Show [...] 11/11/21 - Chronic cystitis glandularis. Pt had 6 mos IO cysto to check for bladder tumor recurrence without complications today. Pt took prophylactic abx prior to procedure. Will send voided specimen for FISH/cytol and call pt if positive. Follow up 1 yr surveillance cysto/bt ck/FISH/cytol or sooner if needed. Pt understands and agrees with plan. 2. Lesion of bladder (N32.9: Bladder disorder, unspecified) Cysto 05/31/23 - On the Left wall there are two tiny vascular abnormalities with possible start of tumor adjacent [1]. absent on today's cysto. Resolved. 3. Elevated PSA (R97.20: Elevated prostate specific antigen [PSA]) PSA: 05/17/19 - 1.82 11/01/21 - 1.77 02/20/23 - 3.22 06/09/23 - 2.42 11/08/23 - 2.59 PSA remains w/in pt's historical range. Will cont to monitor. -PSA in 1 yr. 4. Enlarged prostate with urinary obstruction (N40.1: Benign prostatic hyperplasia with lower urinary tract symptoms) S/p TURP 02/2018. Not taking any BPH or bladder meds. Follow-up With When Contact Information MACI BLAKE, Randall Garcia, URL [facility] [address], [place] [address]- Additional Instructions: 1 yr cysto and PSA Patient Education Cancer Screening for Males I, Irma Vance, personally scribed for Dr. Molina on 11/15/2023 07:58:40. . Documentation recorded by the scribe, Irma Vance, accurately reflects the services(s) I performed and decisions made by me. Authenticated by Dr. Molina on 11/15/2023 08:00:26. Problem List/Past Medical History Ongoing Bladder cancer BMI 28.0-28.9,adult Diabetes Elevated PSA Enlarged prostate with urinary obstruction History of skin cancer History of urinary retention Hx of bladder cancer Hx of hepatitis Hypertension Smoker Historical Lesion of bladder Procedure/Surgical History Cystoscopy (11/15/2023), Cystoscopy (05/31/2023), Cystoscopy (05/18/2022), Cystoscopy (10/27/2021), Cystoscopy (07/28/2021), Cystoscopy (04/21/2021), Cystoscopy (01/20/2021), Cystoscopy (10/14/2020), Cystoscopy (06/17/2020), Cystoscopy (03/03/2020), Ablation of neoplasm of urinary bladder using laser (11/19/2019), Cystoscope (11/05/2019), Cystoscopy (07/30/2019), Cystoscope (02/20/2019), Cystoscopy ( (more content not included)... Normal [facility] Comment on above: Result Comment: Elec tronically Signed By: Randall MOLINA MD\.br\Date and Time Signed: 11/15/23 08:00 EDT\.br\Electronically Co-Signed By: Irma Vance\.br\Date and Time Co-Signed: 11/15/23 07:58 EDT [facility] Fish and Urine Cyt o ([facility])on 06-07-2023 [facility] & UC Diagnosis Info Invalid Interpretation Code [facility] Comment on above: Result Comment: A:Ur [...] correlated with cytology and cystoscopy results.* CPT 85517, 99911. Microscopic Notes - Microscopic Notes - Abnormal cells 9p21 deletions: Abnormal cells aneploid events: Total cells analyzed: 100 Hematuria: Gross Description Site ID:A color Yellow fixative Alcohol Received 100 mls of clear yellow fluid with the patient's name and, Bladder Wash on the vial. Electronically signed by : on: 06/07/2023 11:05:10 Performed By: #### 1 [id number] #### [facility] [address] [place] [address] Consent for Procedure/Surger yon 06-01-2023 Consent for Procedure/Surgery [id number] #1.00TIFF Normal [facility] Lab Reportson 06-01-2023 Lab Reports [id number] #1.00TIFF Normal [facility] Ambulatory Visit Summaryon 0 05-31-2023 Ambulatory Visit Summary ELI GARRISON :1950 Visit Date:05/31/2023 Ambulatory Visit Instructions Your Diagnosis Hx of bladder cancer Lesion of bladder Elevated PSA Enlarged prostate with urinary obstruction Your Care Team Attending Physician - Randall MOLINA MD Primary Care Physician - ANTONI COHN DO This Is Your Medications List Contact prescribing physician if questions or concerns acetaminophen-hydroc odone ([place] 325 mg-5 mg oral tablet) ciprofloxacin (Cipro [...] [facility] [address] [place] [address]- Medications What How Much When Why Instructions Unchanged acetaminophen-hydroc odone ([place] 325 mg-5 mg oral tablet) 1 Tablets [...] flexible tube (more content not included)... Normal [facility] Patient Educationon 05-31-19 Patient Education Oncology [...] if anything looks unusual. Men with a quwasv-kbiu-osjcnz risk for skin cancer may want to see a slunk skinner (bankruptcy processor) for an annual body check. What are the benefits of screening? Cancer screening is done to look for cancer in the very early stages, before it spreads and becomes harder to treat and before you would start to notice symptoms. Finding cancer early improves the chances of successful treatment. It ma (more content not included)... Normal [facility] Fish and Urine Cyt o ([facility])on 05-31-2023 [facility] Method of Extraction Bladder Wash Normal [facility] Comment on above: Performed By: #### 1 [id number] #### [facility] [address] [place] [address] [facility] Number of Jars 1 Invalid Interpretation Code [facility] Comment on above: Performed By: #### 1 [id number] #### [facility] [address] [place] [address] [facility] Specimen Bladder Wash Normal [facility] Comment on above: Performed By: #### 1 [id number] #### [facility] [address] [place] [address] [facility] Type of Service Technical Only Normal [facility] Comment on above: Performed By: #### 1 [id number] #### [facility] [address] [place] [address] Urology Office/Clinic Noteon 05-31-2023 Urology Office/Clinic Note [...] [facility] [address], [place] [address]- Additional Instructions: 6 mos cysto, PSA FT [...] (02/15/2018), Cysto (more content not included)... Normal [facility] Comment on above: Result Comment: Elec tronically Signed By: Randall MOLINA MD\.br\Date and Time Signed: 05/31/23 08:00 EDT\.br\Electronically Co-Signed By: Irma Vance\.br\Date and Time Co-Signed: 05/31/23 07:58 EDT GLYCOHEMOGLOBIN A1Con 2021 ADA RECOMMENDATION SEE BELOW Normal [facility] Comment on above: Result Comment: ADA RECOMMENDED LIMIT 4.0 - 6.0 ADA THERAPEUTIC TARGET < 7.0 ACTION SUGGESTED > 7.0 Performed By: #### A 1C #### [facility] [address] [address] [address] Gil Smith Glucose [Mass/Vol] 137 mg/dL Normal [facility] Comment on above: Performed By: #### A 1C #### [facility] [address] [address] [address] Gil Smith HbA1c (Bld) [Mass fraction] 6.4 % Critically high 4.5-6.2 [facility] Comment on above: Performed By: #### A 1C #### [facility] [address] [address] [address] Gil Smith MICROALBUMIN, RAND URon 02-10 mALB <1.3 Normal <=30.0 [facility] Comment on above: Performed By: #### B MP #### [facility] [address] ABD/PELVIS WO CONon [...] HALLEY RAMIRES Date: 2021-11-13 22:56 Normal [facility] CULTURE URINEon 11-14-2021 CULTURE URINE Culture Observations: NO GROWTH. Normal [facility] Comment on above: Performed By: #### B MP #### [facility] [address] [place] [address] Dr. Gil Smith ER URINE PROFILEon 2 Bilirubin Ql (U) MODERATE Abnormal NEGATIVE [facility] Comment on above: Performed By: #### A 1C #### [facility] [address] [place] [address] Dr. Gil Smith Clarity (U) CLEAR Normal CLEAR [facility] Comment on above: Performed By: #### A 1C #### [facility] [address] [place] [address] Dr. Gil Smith Color (U) RED Abnormal YELLOW [facility] Comment on above: Performed By: #### A 1C #### [facility] [address] [place] [address] Dr. Gil DEJESUS A micrscopic examination will be performed if indicated. Normal [facility] Comment on above: Performed By: #### A 1C #### [facility] [address] [place] [address] Dr. Gil Smith Glucose Ql (U) Negative Normal NEGATIVE [facility] Comment on above: Performed By: #### A 1C #### [facility] [address] [place] [address] Dr. Gil Smith Hemoglobin Ql (U) LARGE Abnormal NEGATIVE The [facility] Comment on above: Performed By: #### A 1C #### [facility] [address] [place] [address] Dr. Gil Smith Ketones Ql (U) 40 mg/dl Abnormal NEGATIVE [facility] Comment on above: Performed By: #### A 1C #### [facility] [address] [place] [address] Dr. Gil Smith LEUKOCYTES MODERATE Abnormal NEGATIVE [facility] Comment on above: Performed By: #### A 1C #### [facility] [address] [place] [address] Dr. Gil Smith Nitrite Ql (U) Positive Abnormal NEGATIVE [facility] Comment on above: Performed By: #### A 1C #### [facility] [address] [place] [address] Dr. Gil Smith pH (U) 8.5 [pH] Normal 5-9 [facility] Comment on above: Performed By: #### A 1C #### [facility] [address] [place] [address] Dr. Gil Smith Protein (U) [Mass/Vol] 100 mg/dL Abnormal NEGATIVE/ TRACE [facility] Comment on above: Performed By: #### A 1C #### [facility] [address] [place] [address] Dr. Gil Smith SPEC GRAVITY 1.015 Normal 1.005-<=1.025 [facility] Comment on above: Performed By: #### A 1C #### [facility] [address] [place] [address] Dr. Gil Smith UR MICRO IND INDICATED Normal [facility] Comment on above: Performed By: #### A 1C #### [facility] [address] [place] [address] Dr. Gil Smith Urobilinogen Qn (U) 2.0 {Ross'U}/dL Abnormal 0.2 - 1. 0 [facility] Comment on above: Performed By: #### A 1C #### [facility] [address] [place] [address] Dr. Gil Smith URINE MICROSCOPIC ONLYon BACTERIA SMALL Abnormal NONE SEEN [facility] Comment on above: Result Comment: Prev iously reported as: MODERATE On 11/13/2021 23:51 By MH01 Performed By: #### A 1C #### [facility] [address] [place] [address] Dr. Gil Smith Bacteria identified Cx Nom (U) INDICATED Normal [facility] Comment on above: Performed By: #### A 1C #### [facility] [address] [place] [address] Dr. Gil Smith CAST NONE SEEN Normal NONE SEEN [facility] Comment on above: Performed By: #### A 1C #### [facility] [address] [place] [address] Dr. Gil Smith Crystals LM Nom (Urine sed) NONE SEEN Normal NONE SEEN [facility] Comment on above: Performed By: #### A 1C #### [facility] [address] [place] [address] Dr. Gil Smith Epithelial cells LM Ql (Urine sed) RARE Normal NONE SEEN /RARE [facility] Comment on above: Performed By: #### A 1C #### [facility] [address] [place] [address] Dr. Gil Smith MUCOUS NONE SEEN Normal NONE SEEN [facility] Comment on above: Performed By: #### A 1C #### [facility] [address] [place] [address] Dr. Gil Smith RBC 0-2 Normal 0-2 [facility] Comment on above: Result Comment: Prev iously reported as: >100 On 11/13/2021 23:51 By 01 Performed By: #### A 1C #### [facility] [address] [place] [address] Dr. Gil Smith WBC 2-5 Abnormal NONE SEEN [facility] Comment on above: Performed By: #### A 1C #### [facility] [address] [place] [address] Dr. Gil Smith CBC AUTO DIFFon 11-13-2021 BASO # 0.0 103/ul Normal 0.0-0.1 [facility] Comment on above: Performed By: #### A 1C #### [facility] [address] [place] [address] Dr. Gil Smith Basophils/100 WBC (Bld) 0.2 % Normal 0.2-2.0 [facility] Comment on above: Performed By: #### A 1C #### [facility] [address] [place] [address] Dr. Gil Smith EO # 0.2 103/ul Normal 0.0-0.7 [facility] Comment on above: Performed By: #### A 1C #### [facility] [address] [place] [address] Dr. Gil Smith Eosinophils/100 WBC (Bld) 1.8 % Normal 0.9-7.0 [facility] Comment on above: Performed By: #### A 1C #### [facility] [address] [place] [address] Dr. Gil Smith Erythrocyte distribution width (RBC) [Ratio] 11.9 % Normal 11.0-15.0 [facility] Comment on above: Performed By: #### A 1C #### [facility] [address] [place] [address] Dr. Gil Smith Hematocrit (Bld) [Volume fraction] 44.5 % Normal 42.0-54.0 [facility] Comment on above: Performed By: #### A 1C #### [facility] [address] [place] [address] Dr. Gil Smith Hemoglobin (Bld) [Mass/Vol] 15.6 g/dL Normal 14.0-18.0 [facility] Comment on above: Performed By: #### A 1C #### [facility] [address] [place] [address] Dr. Gil Smith IG # 0.05 10e3/ul Critically high 0.00-0.03 [facility] Comment on above: Performed By: #### A 1C #### [facility] [address] [place] [address] Dr. Gil Smith IG % 0.4 % Normal 0.0-0.5 [facility] Comment on above: Performed By: #### A 1C #### [facility] [address] [place] [address] Dr. Gil Smith LYMPH # 2.1 103/ul Normal 1.2-3.8 [facility] Comment on above: Performed By: #### A 1C #### [facility] [address] [place] [address] Dr. Gil Smith Lymphocytes/100 WBC (Bld) 16.3 % Critically low 20.5-60.0 [facility] Comment on above: Performed By: #### A 1C #### [facility] [address] [place] [address] Dr. Gil Smith MANUAL DIFF REQ NO Normal [facility] Comment on above: Performed By: #### A 1C #### [facility] [address] [address] [address] Gil Smith MCH (RBC) [Entitic mass] 30.2 pg Normal 25.9-34.0 [facility] Comment on above: Performed By: #### A 1C #### [facility] [address] [address] [address] Gil Smith MCHC (RBC) [Mass/Vol] 35.1 g/dL Normal 29.9-35.2 [facility] Comment on above: Performed By: #### A 1C #### [facility] [address] [address] [address] Gil Smith MCV (RBC) [Entitic vol] 86.2 fL Normal 80.0-94.0 [facility] Comment on above: Performed By: #### A 1C #### [facility] [address] [place] [address] Dr. Gil Smith MONO # 0.7 103/ul Normal 0.3-0.8 [facility] Comment on above: Performed By: #### A 1C #### [facility] [address] [address] [address] Gil Smith Monocytes/100 WBC (Bld) 5.3 % Normal 1.7-12.0 [facility] Comment on above: Performed By: #### A 1C #### [facility] [address] [address] [address] Gil Smith NEUT # 9.8 103/ul Critically high 1.4-6.5 [facility] Comment on above: Performed By: #### A 1C #### [facility] [address] [place] [address] Dr. Gil Smith Neutrophils/100 WBC (Bld) 76.0 % Critically high 43.0-75.0 [facility] Comment on above: Performed By: #### A 1C #### [facility] [address] [place] [address] Dr. Gil Smith Platelet mean volume (Bld) [Entitic vol] 9.4 fL Critically low 9.5-13.5 [facility] Comment on above: Performed By: #### A 1C #### [facility] [address] [address] [address] Gil Smith PLT 334 103/ul Normal 150-450 [facility] Comment on above: Performed By: #### A 1C #### [facility] [address] [address] [address] Gil Smith RBC 5.16 106/ul Normal 4.70-6.10 [facility] Comment on above: Performed By: #### A 1C #### [facility] [address] [address] [address] Gil Smith WBC 12.9 103/ul Critically high 4.0-11.0 [facility] Comment on above: Performed By: #### A 1C #### [facility] [address] [place] [address] Dr. Gil Smith PROF CHEM 8 (BAS METB)on Anion gap [Moles/Vol] 10.6 mmol/L Normal [facility] Comment on above: Performed By: #### B MP #### [facility] [address] [place] [address] Dr. Gil Smith Calcium [Mass/Vol] 9.1 mg/dL Normal 8.5-10.1 [facility] Comment on above: Performed By: #### B MP #### [facility] [address] [place] [address] Dr. Gil Smith Chloride [Moles/Vol] 101 mmol/L Normal 98-107 [facility] Comment on above: Performed By: #### B MP #### [facility] [address] [place] [address] Dr. Gil Smith CO2 [Moles/Vol] 30.7 mmol/L Normal 21.0-32.0 [facility] Comment on above: Performed By: #### B MP #### [facility] [address] [address] [address] Gil Smith Creatinine [Mass/Vol] 1.14 mg/dL Normal 0.70-1.30 [facility] Comment on above: Performed By: #### B MP #### [facility] [address] [address] [address] Gil Smith EGFR-AF ALBANIAN >60 Normal >=60 [facility] Comment on above: Performed By: #### B MP #### [facility] [address] [address] [address] Gil Smith EGFR-NON AF ALBANIAN >60 Normal >=60 [facility] Comment on above: Performed By: #### B MP #### [facility] [address] [address] [address] Gil Smith Glucose [Mass/Vol] 181 mg/dL Critically high 74-106 [facility] Comment on above: Performed By: #### B MP #### [facility] [address] [address] [address] Gil Smith Potassium [Moles/Vol] 4.3 mmol/L Normal 3.5-5.1 [facility] Comment on above: Performed By: #### B MP #### [facility] [address] [address] [address] Gil Smith Sodium [Moles/Vol] 138 mmol/L Normal 136-145 [facility] Comment on above: Performed By: #### B MP #### [facility] [address] [address] [address] Gil Smith Urea nitrogen [Mass/Vol] 19.0 mg/dL Critically high 7.0-18.0 [facility] Comment on above: Performed By: #### B MP #### [facility] [address] [address] [address] Gil Smith Urea nitrogen/Creatinine [Mass ratio] 16.7 mg/mg Normal [facility] Comment on above: Performed By: #### B MP #### [facility] [address] [address] [address] Gil Smith POINT OF CARE GLUCOSEon 09-0 Glucose [Mass/Vol] 115 mg/dL Critically high 74-106 [facility] Comment on above: Performed By: #### P OCGLUC #### [facility] [address] [place] [address] Dr. Gil Smith Covid-19 PCR (CVDTB)on 10-12 SARS-CoV-2 (COVID-19) RNA ITA+probe Ql (Unsp spec) Not detected Normal NOT DETECTED [facility] Comment on above: Result Comment: This test is not yet approved or cleared by the [place] FDA. When there are no FDA-approved or cleared tests available, and other criteria are met, FDA can make tests available under an emergency access mechanism called an Emergency Use Authorization (EUA). The EUA for this test is supported by the [employer] of Health and Human Service's (HHS's) declaration [...] SARS-CoV-2. Performed By: #### C VDTBH #### [facility] [address] [place] [address] Dr. Gil Smith CBC AUTO DIFFon 11-01-2021 BASO # 0.0 103/ul Normal 0.0-0.1 [facility] Comment on above: Performed By: #### C BC #### [facility] [address] [place] [address] Dr. Gil Smith Basophils/100 WBC (Bld) 0.3 % Normal 0.2-2.0 [facility] Comment on above: Performed By: #### C BC #### [facility] [address] [place] [address] Dr. Gil Smith EO # 0.3 103/ul Normal 0.0-0.7 [facility] Comment on above: Performed By: #### C BC #### [facility] [address] [place] [address] Dr. Gil Smith Eosinophils/100 WBC (Bld) 2.8 % Normal 0.9-7.0 [facility] Comment on above: Performed By: #### C BC #### [facility] [address] [place] [address] Dr. Gil Smith Erythrocyte distribution width (RBC) [Ratio] 11.9 % Normal 11.0-15.0 [facility] Comment on above: Performed By: #### C BC #### [facility] [address] [place] [address] Dr. Gil Smith Hematocrit (Bld) [Volume fraction] 45.4 % Normal 42.0-54.0 [facility] Comment on above: Performed By: #### C BC #### [facility] [address] [place] [address] Dr. Gil Smith Hemoglobin (Bld) [Mass/Vol] 15.2 g/dL Normal 14.0-18.0 [facility] Comment on above: Performed By: #### C BC #### [facility] [address] [place] [address] Dr. Gil Smith IG # 0.02 10e3/ul Normal 0.00-0.03 [facility] Comment on above: Performed By: #### C BC #### [facility] [address] [place] [address] Dr. Gil Smith IG % 0.2 % Normal 0.0-0.5 [facility] Comment on above: Performed By: #### C BC #### [facility] [address] [place] [address] Dr. Gil Smith LYMPH # 2.3 103/ul Normal 1.2-3.8 [facility] Comment on above: Performed By: #### C BC #### [facility] [address] [place] [address] Dr. Gil Smith Lymphocytes/100 WBC (Bld) 26.1 % Normal 20.5-60.0 [facility] Comment on above: Performed By: #### C BC #### [facility] [address] [place] [address] Dr. Gil Smith MANUAL DIFF REQ NO Normal [facility] Comment on above: Performed By: #### C BC #### [facility] [address] [place] [address] Dr. Gil Smith MCH (RBC) [Entitic mass] 29.7 pg Normal 25.9-34.0 [facility] Comment on above: Performed By: #### C BC #### [facility] [address] [place] [address] Dr. Gil Smith MCHC (RBC) [Mass/Vol] 33.5 g/dL Normal 29.9-35.2 [facility] Comment on above: Performed By: #### C BC #### [facility] [address] [place] [address] Dr. Gil Smith MCV (RBC) [Entitic vol] 88.8 fL Normal 80.0-94.0 [facility] Comment on above: Performed By: #### C BC #### [facility] [address] [place] [address] Dr. Gil Smith MONO # 0.4 103/ul Normal 0.3-0.8 [facility] Comment on above: Performed By: #### C BC #### [facility] [address] [place] [address] Dr. Gil Smith Monocytes/100 WBC (Bld) 4.6 % Normal 1.7-12.0 [facility] Comment on above: Performed By: #### C BC #### [facility] [address] [place] [address] Dr. Gil Smith NEUT # 5.9 103/ul Normal 1.4-6.5 [facility] Comment on above: Performed By: #### C BC #### [facility] [address] [place] [address] Dr. Gil Smith Neutrophils/100 WBC (Bld) 66.0 % Normal 43.0-75.0 [facility] Comment on above: Performed By: #### C BC #### [facility] [address] [place] [address] Dr. Gil Smith Platelet mean volume (Bld) [Entitic vol] 9.3 fL Critically low 9.5-13.5 [facility] Comment on above: Performed By: #### C BC #### [facility] [address] [place] [address] Dr. Gil Smith PLT 306 103/ul Normal 150-450 [facility] Comment on above: Performed By: #### C BC #### [facility] [address] [place] [address] Dr. Gil Smith RBC 5.11 106/ul Normal 4.70-6.10 [facility] Comment on above: Performed By: #### C BC #### [facility] [address] [address] [address] Gil Smith WBC 8.9 103/ul Normal 4.0-11.0 [facility] Comment on above: Performed By: #### C BC #### [facility] [address] [place] [address] Dr. Gil Smith PROF CHEM 8 (BAS METB)on Anion gap [Moles/Vol] 9.5 mmol/L Normal [facility] Comment on above: Performed By: #### B MP #### [facility] [address] [place] [address] Dr. Gil Smith Calcium [Mass/Vol] 9.2 mg/dL Normal 8.5-10.1 [facility] Comment on above: Performed By: #### B MP #### [facility] [address] [place] [address] Dr. Gil Smith Chloride [Moles/Vol] 103 mmol/L Normal 98-107 [facility] Comment on above: Performed By: #### B MP #### [facility] [address] [place] [address] Dr. Gil Smith CO2 [Moles/Vol] 30.5 mmol/L Normal 21.0-32.0 [facility] Comment on above: Performed By: #### B MP #### [facility] [address] [place] [address] Dr. Gil Smith Creatinine [Mass/Vol] 1.00 mg/dL Normal 0.70-1.30 [facility] Comment on above: Performed By: #### B MP #### [facility] [address] [address] [address] Gil Smith EGFR-AF ALBANIAN >60 Normal >=60 [facility] Comment on above: Performed By: #### B MP #### [facility] [address] [address] [address] Gil Smith EGFR-NON AF ALBANIAN >60 Normal >=60 [facility] Comment on above: Performed By: #### B MP #### [facility] [address] [address] [address] Gil Smith Glucose [Mass/Vol] 120 mg/dL Critically high 74-106 [facility] Comment on above: Performed By: #### B MP #### [facility] [address] [place] [address] Dr. Gil Smith Potassium [Moles/Vol] 5.0 mmol/L Normal 3.5-5.1 [facility] Comment on above: Performed By: #### B MP #### [facility] [address] [place] [address] Dr. Gil Smith Sodium [Moles/Vol] 138 mmol/L Normal 136-145 [facility] Comment on above: Performed By: #### B MP #### [facility] [address] [place] [address] Dr. Gil Smith Urea nitrogen [Mass/Vol] 13.0 mg/dL Normal 7.0-18.0 [facility] Comment on above: Performed By: #### B MP #### [facility] [address] [place] [address] Dr. Gil Smith Urea nitrogen/Creatinine [Mass ratio] 13.0 mg/mg Normal [facility] Comment on above: Performed By: #### B MP #### [facility] [address] [place] [address] Dr. Gil Smith PROTIMEon 11-01-2021 INR Coag (PPP) [Relative time] 1.00 {INR} Normal [facility] Comment on above: Performed By: #### B MP #### [facility] [address] [place] [address] Dr. Gil Smith INR GUIDELINES SEE BELOW Normal [facility] Comment on above: Result Comment: CHUCK RED INR: 2.0 - 3.0 CONDITIONS NOT LISTED BELOW 2.5 - 3.5 FOR PROSTHETIC HEART VALVE REPLACEMENT 2.5 - 3.5 RECURRENT THROMBOSIS Performed By: #### B MP #### [facility] [address] [place] [address] Dr. Gil Smith PT Coag (PPP) [Time] 10.8 s Normal 9.0-11.6 [facility] Comment on above: Performed By: #### B MP #### [facility] [address] [place] [address] Dr. Gil Smith PTTon 11-01-2021 aPTT Coag (Bld) [Time] 27.7 s Normal 22.3-36.2 [facility] Comment on above: Performed By: #### P T, PTT #### [facility] [address] [place] [address] Dr. Gil Smith XR CHEST 2 Von [...] DANAY ROSADO Date: 2021-11-01 16:55 Normal [facility] GLYCOHEMOGLOBIN A1Con 2021 ADA RECOMMENDATION SEE BELOW Normal [facility] Comment on above: Result Comment: ADA RECOMMENDED LIMIT 4.0 - 6.0 ADA THERAPEUTIC TARGET < 7.0 ACTION SUGGESTED > 7.0 Performed By: #### B MP #### [facility] [address] [place] [address] Dr. Gil Smith Glucose [Mass/Vol] 140 mg/dL Normal [facility] Comment on above: Performed By: #### B MP #### [facility] [address] [address] [address] Gil Smith HbA1c (Bld) [Mass fraction] 6.5 % Critically high 4.5-6.2 [facility] Comment on above: Performed By: #### B MP #### [facility] [address] [address] [address] Gil Smith GLYCOHEMOGLOBIN A1Con 2021 ADA RECOMMENDATION ADA THERAPEUTIC TARGET 6.0 - 7.0 ACTION SUGGESTED > 7.0 Normal [facility] Comment on above: Performed By: #### A 1C #### [facility] [address] [address] [address] Gil Smith Glucose [Mass/Vol] 137 mg/dL Normal [facility] Comment on above: Performed By: #### A 1C #### [facility] [address] [address] [address] Gil Smith HbA1c (Bld) [Mass fraction] 6.4 % Critically high <=6.0 [facility] Comment on above: Performed By: #### A 1C #### [facility] [address] [address] [address] Gil Smith Bladder Cancer FISHon 2021 Specimen Type: Normal [facility] Comment on above: Result Comment: See report. Scanned copy available in EMR. PERFORMED BY: [address] [id number] PATHOLOGIST BIOPHYSICS SCIENTIST CHANCE ALMARAZ M.D. Performed By: #### F RAYSA BLADD #### [facility] , [place] 04-21-2021 L Specimen: [id number] Received: 04/22/21 Status: DEBI Tinocorafal Num: [id number] Spec Type: Cytology Subm Dr: Randall Molina MD Tissues: A URINECYTO (URINE) Procedures: Pap Stain, Cyto Prepstain Patient Age/Sex Location Account Attending Physician Eli Garrison 71/M [place] [id number] Randall Molina MD SPEC NUM: [id number] RECD: 04/22/21 STATUS: DEBI TINOCORafal NUM: [id number] KENIA: 04/21/21- SUBM DR: Randall Molina MD ENTERED: 04/22/21 [facility] DR: SPEC TYPE: Cytology DEPT: IGNACIO ENTERED BY: [id number] RECV BY: [id number] ORDERED: Pap Stain, Cyto Prepstain ORDERED: Pap [...] findings support the above diagnosis. CPT Codes 05525 Specimen: [id number] Received: 04/22/21 Status: DEBI Rodgers Num: [id number] Spec Type: Cytology Subm Dr: Randall Molina MD Tissues: A URINECYTO (URINE) Procedures: Pap Stain, Cyto Prepstain Patient: Eli Garrison [id number] (Continued) Signed (signature on file) Ryan Cr MD 04/22/21 1807 Normal [facility] PSA SCREENING LABC[facility]Pon 02-12 Prostate specific Ag [Mass/Vol] 1.5 ng/mL Normal 0.0-4.0 [facility] Comment on above: Result Comment: Talita todd ECLIA methodology. . According to the [place] [employer], Serum PSA should decrease and [...] disease. Performed By: #### P SASCLC #### [facility] [address] [place] [address] Dr. Gil Smith VIT D 25-OH [facility] 2020 Vitamin D, 25-Hydroxy 32.9 ng/mL Normal 30.0-100.0 [facility] Comment on above: Result Comment: Kelly min D deficiency has been defined by the [place] of Medicine and an Endocrine Society practice guideline as a level of serum 25-OH vitamin D less than 20 ng/mL (1,2). The Endocrine Society went on to further define vitamin D insufficiency as a level between 21 and 29 ng/mL (2). 1. IOM ([place] of Medicine). 2010. Dietary reference intakes for calcium and D. [place]: The National Academies Press. 2. Pedro MF, Rosa Elena [place], Jamison XIONG, et al. Evaluation, treatment, and prevention of vitamin D deficiency: an Endocrine Society clinical practice guideline. JCEM. 2010; 96(7):1911-30. Performed By: #### B MP #### [facility] [address] [place] [address] Dr. Gil Smith CBC AUTO DIFFon 03-10-2021 BASO # 0.0 103/ul Normal 0.0-0.1 [facility] Comment on above: Performed By: #### B MP #### [facility] [address] [place] [address] Dr. Gil Smith Basophils/100 WBC (Bld) 0.5 % Normal 0.2-2.0 [facility] Comment on above: Performed By: #### B MP #### [facility] [address] [place] [address] Dr. Gil Smith EO # 0.3 103/ul Normal 0.0-0.7 [facility] Comment on above: Performed By: #### B MP #### [facility] [address] [place] [address] Dr. Gil Smith Eosinophils/100 WBC (Bld) 3.0 % Normal 0.9-7.0 [facility] Comment on above: Performed By: #### B MP #### [facility] [address] [place] [address] Dr. Gil Smith Erythrocyte distribution width (RBC) [Ratio] 12.1 % Normal 11.0-15.0 [facility] Comment on above: Performed By: #### B MP #### [facility] [address] [place] [address] Dr. Gil Smith Hematocrit (Bld) [Volume fraction] 45.2 % Normal 42.0-54.0 [facility] Comment on above: Performed By: #### B MP #### [facility] [address] [place] [address] Dr. Gil Smith Hemoglobin (Bld) [Mass/Vol] 15.1 g/dL Normal 14.0-18.0 [facility] Comment on above: Performed By: #### B MP #### [facility] [address] [place] [address] Dr. Gil Smith IG # 0.03 10e3/ul Normal 0.00-0.03 [facility] Comment on above: Performed By: #### B MP #### [facility] [address] [place] [address] Dr. Gil Smith IG % 0.4 % Normal 0.0-0.5 [facility] Comment on above: Performed By: #### B MP #### [facility] [address] [place] [address] Dr. Gil Smith LYMPH # 2.7 103/ul Normal 1.2-3.8 [facility] Comment on above: Performed By: #### B MP #### [facility] [address] [place] [address] Dr. Gil Smith Lymphocytes/100 WBC (Bld) 31.9 % Normal 20.5-60.0 [facility] Comment on above: Performed By: #### B MP #### [facility] [address] [place] [address] Dr. Gil Smith MANUAL DIFF REQ NO Normal [facility] Comment on above: Performed By: #### B MP #### [facility] [address] [place] [address] Dr. Gil Smith MCH (RBC) [Entitic mass] 29.6 pg Normal 25.9-34.0 [facility] Comment on above: Performed By: #### B MP #### [facility] [address] [place] [address] Dr. Gil Smith MCHC (RBC) [Mass/Vol] 33.4 g/dL Normal 29.9-35.2 [facility] Comment on above: Performed By: #### B MP #### [facility] [address] [place] [address] Dr. Gil Smith MCV (RBC) [Entitic vol] 88.6 fL Normal 80.0-94.0 [facility] Comment on above: Performed By: #### B MP #### [facility] [address] [place] [address] Dr. Gil Smith MONO # 0.4 103/ul Normal 0.3-0.8 [facility] Comment on above: Performed By: #### B MP #### [facility] Laboratory [address] [place] [address] Dr. Gil Smith Monocytes/100 WBC (Bld) 4.9 % Normal 1.7-12.0 [facility] Comment on above: Performed By: #### B MP #### [facility] Laboratory [address] [place] [address] Dr. Gil Smith NEUT # 4.9 103/ul Normal 1.4-6.5 [facility] Comment on above: Performed By: #### B MP #### [facility] Laboratory [address] [address] [address] Gil Smith Neutrophils/100 WBC (Bld) 59.3 % Normal 43.0-75.0 [facility] Comment on above: Performed By: #### B MP #### [facility] [address] [place] [address] Dr. Gil Smith Platelet mean volume (Bld) [Entitic vol] 9.0 fL Critically low 9.5-13.5 [facility] Comment on above: Performed By: #### B MP #### [facility] [address] [place] [address] Dr. Gil Smith PLT 307 103/ul Normal 150-450 [facility] Comment on above: Performed By: #### B MP #### [facility] [address] [place] [address] Dr. Gil Smith RBC 5.10 106/ul Normal 4.70-6.10 [facility] Comment on above: Performed By: #### B MP #### [facility] [address] [place] [address] Dr. Gil Smith WBC 8.3 103/ul Normal 4.0-11.0 [facility] Comment on above: Performed By: #### B MP #### [facility] [address] [place] [address] Dr. Gil Smith GLYCOHEMOGLOBIN A1Con 2020 ADA RECOMMENDATION ADA THERAPEUTIC TARGET 6.0 - 7.0 ACTION SUGGESTED > 7.0 Normal [facility] Comment on above: Performed By: #### A 1C #### [facility] [address] [place] [address] Dr. Gil Smith Glucose [Mass/Vol] 131 mg/dL Normal [facility] Comment on above: Performed By: #### A 1C #### [facility] [address] [place] [address] Dr. Gil Smith HbA1c (Bld) [Mass fraction] 6.2 % Critically high <=6.0 [facility] Comment on above: Performed By: #### A 1C #### [facility] [address] [place] [address] Dr. Gil Smith MICROALBUMIN, RAND URon 12-2 mALB <1.3 Normal <=30.0 [facility] Comment on above: Performed By: #### B MP #### [facility] [address] [place] [address] Dr. Gil Smith PROF CHEM 8 (BAS METB)on Anion gap [Moles/Vol] 8.6 mmol/L Normal [facility] Comment on above: Performed By: #### B MP #### [facility] [address] [place] [address] Dr. Gil Smith Calcium [Mass/Vol] 9.1 mg/dL Normal 8.4-10.2 [facility] Comment on above: Performed By: #### B MP #### [facility] [address] [place] [address] Dr. Gil Smith Chloride [Moles/Vol] 103 mmol/L Normal 98-107 [facility] Comment on above: Performed By: #### B MP #### [facility] [address] [place] [address] Dr. Gil Smith CO2 [Moles/Vol] 31.5 mmol/L Critically high 22.0-30.0 [facility] Comment on above: Performed By: #### B MP #### [facility] [address] [place] [address] Dr. Gil Smith Creatinine [Mass/Vol] 0.89 mg/dL Normal 0.66-1.25 [facility] Comment on above: Performed By: #### B MP #### [facility] [address] [place] [address] Dr. Gil Smith EGFR-AF ALBANIAN >60 Normal >=60 [facility] Comment on above: Performed By: #### B MP #### [facility] [address] [place] [address] Dr. Gil Smith EGFR-NON AF ALBANIAN >60 Normal >=60 [facility] Comment on above: Performed By: #### B MP #### [facility] [address] [address] [address] Gil Smith Glucose [Mass/Vol] 117 mg/dL Critically high 74-106 T [facility] Comment on above: Performed By: #### B MP #### [facility] [id number] Gil Smith Potassium [Moles/Vol] 4.1 mmol/L Normal 3.4-5.0 [facility] Comment on above: Performed By: #### B MP #### [facility] [address] [address] [address] Gil Smith Sodium [Moles/Vol] 139 mmol/L Normal 137-145 [facility] Comment on above: Performed By: #### B MP #### [facility] [address] [address] [address] Gil Smith Urea nitrogen [Mass/Vol] 13.0 mg/dL Normal 9.0-20.0 [facility] Comment on above: Performed By: #### B MP #### [facility] [address] [address] [address] Gil Smith Urea nitrogen/Creatinine [Mass ratio] 14.6 mg/mg Normal [facility] Comment on above: Performed By: #### B MP #### [facility] [address] [address] [address] Gil Smith Bladder Cancer [facility] 2020 Specimen Type: Normal [facility] Comment on above: Result Comment: See report. Scanned copy available in EMR. PERFORMED BY: [address] [place] [address] PATHOLOGIST BIOPHYSICS SCIENTIST CHANCE ALMARAZ M.D. Performed By: #### F RAYSA BLADD #### [facility] ([place], [place]) 01-20-2021 L Specimen: [id number] Received: 01/21/21 Status: DEBI Vishal Num: [id number] Spec Type: Cytology Subm Dr: Randall Molina MD Tissues: A URINECYTO (URINE-BLADDER WASH) Procedures: Pap Stain, Cyto Prepstain Patient Age/Sex Location Account Attending Physician Eli Garrison/M [place] [id number] Randall Molina MD SPEC NUM: [id number] RECD: 01/21/21 STATUS: DEBI VISHAL NUM: [id number] KENIA: 01/20/21- SUBM DR: Randall Molina MD ENTERED: 01/21/[address]: SPEC TYPE: Cytology DEPT: ADELAIDA ENTERED BY: [id number] RECV BY: [id number] ORDERED: Pap Stain, Cyto Prepstain ORDERED: Pap [...] findings support the above diagnosis. CPT Codes 74737 Specimen: [id number] Received: 01/21/21 Status: DEBI Rodgers Num: [id number] Spec Type: Cytology Subm Dr: Randall Molina MD Tissues: A URINECYTO (URINE-BLADDER WASH) Procedures: Pap Stain, Cyto Prepstain Patient: Eli Garrison [id number] (Continued) Signed (signature on file) Ryan Cr MD 01/23/21 [facility] Vital Signs Date Time Vital Sign Value Performing Clinician Facility 02-17-2023 08:30-0500 Body height [facility] Other [facility] Other 02-17-2023 08:30-0500 Body mass index (BMI) [Ratio] 29.43 kg/m2 [facility] Other [facility] Other 02-17-2023 08:30-0500 Body temperature 97.3 [degF] [facility] Other [facility] Other 02-17-2023 08:30-0500 Body weight 91.72 kg [facility] [employer] Other [facility] Other 02-17-2023 08:30-0500 Diastolic blood pressure 65 mm[Hg] [facility] [employer] Other [facility] Other 02-17-2023 08:30-0500 Respiratory rate 14 /min [facility] [employer] Other [facility] Other 02-17-2023 08:30-0500 SaO2% (BldA) [Mass fraction] 96 % [facility] [employer] Other [facility] Other 02-17-2023 08:30-0500 Systolic blood pressure 110 mm[Hg] Antoni Frock Advisor Other [facility] Other 10-07-2022 09:00-0400 Body height Antoni Ball Other [facility] Other 10-07-2022 09:00-0400 Body mass index (BMI) [Ratio] 29.72 kg/m2 Antoni Ball Other [facility] Other 10-07-2022 09:00-0400 Body weight 92.63 kg Antoni Ball Other [facility] Other 10-07-2022 09:00-0400 Diastolic blood pressure 69 mm[Hg] Antoni Ball Other [facility] Other 10-07-2022 09:00-0400 Respiratory rate 12 /min Antoni Ball Other [facility] Other 10-07-2022 09:00-0400 Systolic blood pressure 138 mm[Hg] Antoni Ball Other [facility] Other 07-06-2022 09:30-0400 Body height Antoni Ball Other [facility] Other 07-06-2022 09:30-0400 Body mass index (BMI) [Ratio] 30.33 kg/m2 Antoni Ball Other [facility] Other 07-06-2022 09:30-0400 Body weight 94.53 kg Antoni Ball Other [facility] Other 07-06-2022 09:30-0400 Diastolic blood pressure 76 mm[Hg] Antoni Ball Other [facility] Other 07-06-2022 09:30-0400 Respiratory rate 12 /min Antoni Ball Other [facility] Other 07-06-2022 09:30-0400 Systolic blood pressure 118 mm[Hg] Antoni Lalit Other [facility] Other Encounters Encounter Date Encounter Type Care Provider Facility Start: 11-15-2023 End: 11-15-2023 ambulatory Randall MOLINA Facility:[facility] Start: 05-31-2023 End: 05-31-2023 ambulatory Randall MOLINA Facility:[facility] Start: 04-11-2023 End: 04-11-2023 ambulatory Antoni Cohn Other [facility] Other Start: 04-11-2023 Telephone encounter Antoni HENAO [facility] Start: 04-05-2023 End: 04-05-2023 ambulatory Antoni Cohn Other [facility] Other Start: 04-05-2023 Telephone encounter Antoni Cohn [facility] Start: 02-17-2023 End: 02-17-2023 ambulatory Antoni Cohn Other [facility] Other Start: 02-17-2023 Patient encounter procedure Antoni Cohn [facility] Start: 10-12-2022 End: 10-12-2022 ambulatory Antoni Cohn Other [facility] Other Start: 10-12-2022 Telephone encounter Antoni Cohn [facility] Start: 10-07-2022 End: 10-07-2022 ambulatory Antoni Cohn Other [facility] Other Start: 10-07-2022 Office outpatient vi sit 25 minutes Antoni Cohn [facility] Start: 07-06-2022 End: 07-06-2022 ambulatory Antoni Cohn Other [facility] Other Start: 07-06-2022 Office outpatient vi sit 15 minutes Antoni Cohn [facility] Start: 02-28-2022 End: 03-01-[address] ANTONI COHN Facility: Start: 02-15-2022 Adult health examination Zack Cohn Other [facility] Other Start: 02-15-2022 Encounter for genera l adult medical examination without abnormal findings Antoni Cohn Other [facility] Other Start: 11-13-2021 End: 11-14-[address] [...] for preprocedural cardiovascular examination Antoni Cohn Other [facility] Other Start: 01-27-2019 Preoperative cardiovascular examination Antoni Cohn Other [facility] Other Procedures Date Procedure Procedure Detail Performing Clinician Start: 11-01-[address] LAMIN MOLINA Comment on above: Performed By: #### B MP #### [facility] [address] [place] [address] Dr. Gil Smith Start: 11-08-2013 Pre-surgery evaluation Antoni Cohn Other Start: 10-14-2013 Screening for malign ant neoplasm of prostate Antoni Cohn Other Depression screening Landon Cohn Other Screening for malign ant neoplasm of prostate Antoni Cohn Other Immunizations Immunization Date Immunization Notes Care Provider Glenn velazco 06-06-2017 diphtheria, tetanus toxoids and acellular pertussis vaccine, unspecified formulation Antoni Cohn Other [facility] Other 01-18-2017 diphtheria, tetanus toxoids and acellular pertussis vaccine, unspecified formulation Antoni Cohn Other [facility] Other Payers Date Payer Category Payer Medicare [id number] 1958 Private Health Insurance [id number] 1950 Unknown [id number] 2.16.84 [id number] 1950 Unknown [id number] 2.16.84 [id number] 1950 Unknown [id number] 2.16.84 [id number] 1950 Unknown [id number] 2.16.84 [id number] 1950 Unknown [id number] 2.16.84 [id number] 1950 Unknown [id number] 2.16.84 [id number] 1950 Unknown [id number] 2.16.84 [id number] 1950 Unknown [id number] 2.16.84 [id number] 1950 Unknown [id number] 2.16.8 40.1.469781.3.579.2.727 1950 Unknown [id number] 2.16.8 40.1.980892.3.579.2.727 1950 Unknown [id number] 2.16.8 [id number] 1950 Unknown [id number] 2.16.8 [id number] Social History Date Type Detail Facility Sex Assigned At [facility] Other Medical Equipment Procedure Code Equipment Code Equipment Origin al Text Equipment Identifier Dates Start: 10-07-2022 Clinical Note 11-15-2023 Note Date & Type Note Facility 11-15-2023 Note Patient Education Oncology Cancer Screening for Males A cancer screening is a test or exam that checks for cancer. Work with your health care provider to create a cancer screening schedule that protects your health. Who should have screening? All people who are male should be considered for screening of certain cancers, including colorectal cancer, prostate cancer, lung cancer, and skin cancer. Your health care provider may recommend screenings for other types of cancer if: ? You have had cancer before. ? You have a family member with cancer. ? You have genes that could increase the risk of cancer. ? You have risk factors for certain cancers, such as current or past use of tobacco products or being overweight. What are the benefits of screening? Cancer screening is done to look for cancer in the very early stages, before it spreads and becomes harder to treat and before you would start to notice symptoms. Finding cancer early improves the chances of successful treatment. It may save your life. When should I be screened for cancer? When you should be screened for cancer depends on: ? Your age. ? Your medical history and your family's medical history. ? Certain lifestyle factors, such as smoking or other use of tobacco products. ? Environmental exposure, such as to asbestos. How is screening done? Colorectal cancer Colorectal cancer screening looks for cancer or for growths called polyps that often form before cancer starts. Tests to look for cancer or polyps include: ? Colonoscopy or flexible sigmoidoscopy. For these procedures, a flexible tube with a small camera is inserted into the rectum. ? CT colonography. This test uses X-rays and a contrast dye to check the colon for polyps. Tests to look for cancer in the [...] home and send it to a lab. All adults should have screenings starting at 45 years old and continuing through 75 years old. For males 76?85 years old, the decision to be screened should be based on a person's preferences, life expectancy, overall health, and prior screening history. Your health care provider may recommend screening before 45 years old. You will have tests every 1?10 years, depending on your results and the type of screening test. People at increased risk should start screening at an earlier age. Talk with your health care provider about which screening test is right for you and how often you should be screened. Prostate cancer Prostate cancer screening is done with blood tests and a digital rectal exam. During this exam, a health care provider uses a gloved finger to check prostate size. You may need to be screened for prostate cancer if: ? You have risk factors for prostate cancer, such as being an person or having a close family member with [...] on the results of your blood tests. Prostate cancer screening for males with average risk may start at 50 years old. Males with risk factors may need to be screened earlier, at 40?45 years old. Talk with your health care provider about whether screening is right for you and, if so, how often you should be screened. Lung cancer Lung cancer screening is done [...] 2 packs a day for 10 years. You may need to be screened [...] provider right away if anything looks unusual. Males with a donspt-leas-pulsys risk for skin cancer may want to see a slunk skinner (bankruptcy processor) for an annual body check. Where (more content not included)... [facility] Evaluation note 04-05-2023 Note Date & Type Note Facility 04-05-2023 Evaluation note Encounter Date Diagnosis Assessment Notes Mar, Hyperlipemia (ICD-10 - E78.5) [facility] Other Evaluation note 02-17-2023 Note Date & [...] (ICD-10 - Z12.5) Yearly AGUILA and PSA [facility] Other Evaluation note 10-07-2022 Note Date & [...] in remission (ICD-10 - F17.211) Continue abstinence [facility] Other Evaluation note 07-06-2022 Note Date & [...] exercise to achieve/mainta in a normal BMI. [facility] Other Evaluation note Note Date & Type Note Facility Evaluation note No Information [employer] [facility] Other History general Narrative - Reported Note [...] History knee surgery 2009 Surgical History COLONOSCOPY 2021 Surgical History CYSTOSCOPY WITH BIOP SY OF BLADDER, TRANSURETHRAL RESECTION OF BLADDER TUMOR (TURBT), AND RETROGRADE PYELOGRAPHY 2020 Hospitalization History SEE SURGICAL HX [facility] Other History general Narrative - Reported Note [...] OF BLADDER TUMOR (TURBT), AND RETROGRADE PYELOGRAPHY 2020 Hospitalization History SEE SURGICAL HX [facility] Other History general Narrative - Reported Note [...] OF BLADDER TUMOR (TURBT), AND RETROGRADE PYELOGRAPHY 2020 Hospitalization History SEE SURGICAL [facility] Other Summary Purpose Family History No Family History Records FoundNo Family History Records FoundNo Family History Records FoundNo Family History Records Found Advance Directives No Advanced Directives Records FoundNo Advanced Directives Records FoundNo Advanced Directives Records FoundNo Advanced Directives Records Found Additional Source Comments (unrecognized sect ion and content) No Status Records FoundNo Status Records FoundNo Status Records FoundNo Status Records Found INFORMATION SOURCE (unrecogn ized section and content) DATE CREATED AUTHOR 05/06/2021 [facility] DATE CREATED AUTHOR AUTHOR'S ORGANIZ ATION 03/09/2022 [facility] DATE CREATED AUTHOR AUTHOR'S ORGANIZ ATION 11/21/2023 [facility] DATE CREATED AUTHOR AUTHOR'S JC ATNIALL 11/28/2023 [facility] REASON FOR VISIT (unrecogniz ed section and [...] BE BASED ON THE PRIMARY CLINICAL RECORDS. [employer] provides no warranty or guarantee of the accuracy or completeness of information in this document.
[2023-12-26] MEDS: ASPIRIN 81 MG TAB.CHEW 162 MG PO (14:13)
[2023-12-26 14:14] LABS: Alanine Aminotransferase 24 U/L (16-63); Albumin Globulin Ratio 1.2; Albumin Level 3.8 g/dL (3.4-5.0); Alkaline Phosphatase 105 U/L (46-116); Anion Gap 9.9; Aspartate Amino Transferase 21 U/L (15-37); BUN Creatinine Ratio 8.5; Bilirubin Total 0.4 mg/dL (0.2-1.0); Calcium 9.3 mg/dL (8.5-10.1); Carbon Dioxide 31.1 mmol/L (21.0-32.0); Chloride 103 mmol/L (98-107); Estimated GFR (African America >60 (>=60 mL/min/1.73m^2); Estimated GFR (Non-African Ame >60 (>=60 mL/min/1.73m^2); Globulin 3.2 g/dL; Glucose 179 mg/dL (74-106); Sodium 140 mmol/L (136-145)
[2023-12-26 14:28] LABS: INR 0.97; Prothrombin Time 10.3 sec (9.0-11.6)
[2023-12-26] MEDS: HEPARIN SODIUM,PORCINE/D5W 25,000 UNIT/500 ML IV.SOLN 20 UNIT IV (14:47)
[2023-12-26 16:22] LABS: Troponin I High Sensitivity 1535.7 pg/mL (4.0-76.1)
--- NOTE | 2023-12-26 18:36 | PC.NURSE ---
Reports chest pain for approx 1 week. patient states he was fishing the other night when chest pressure worsened. patient states he was experiencing chest pressure off and on throughout the week while walking.. states currently feeling no chest pressure. patient sent over from physician office
== END 2023-12-26 20:00 | disposition short-term general hospital (02) ==
PROVIDERS: Physician Assistant; Emergency Provider Emergency Medicine; PCP Internal Medicine
DX: I21.4 Non-ST elevation (NSTEMI) myocardial infarction (principal); R07.9 Chest pain, unspecified; E11.9 Type 2 diabetes mellitus without complications; E78.5 Hyperlipidemia, unspecified; I10 Essential (primary) hypertension; Z87.891 Personal history of nicotine dependence
CPT/HCPCS: 36415; 71045; 80053; 83880; 84484; 85025; 85610; 93005; 96374; 99285; J1644

== ENCOUNTER 2024-08-24 15:12 | Emergency (ER) | payer MEDICARE, OTHER, SELFPAY ==
[2024-08-24 15:18] VITALS: BP 155/72; PULSE 62; TEMP 37.2; O2SAT 99; BMI 30.9
--- OUTSIDE RECORDS SUMMARY | 2024-08-24 15:19 | XMS_ITS | CCD ---
Author Organization [facility] CliniSyms Care Team Providers Care Radar Engineer Name Role Phone MACI, DR CAPUTO Admitting Unavailable MOLINA, DR CAPUTO Attending Unavailable BALL, DR ROCHE Primary Care Unavailable MOLINA, DR CAPUTO Consulting Unavailable CÉSAR, ALEKSANDAR Consulting Unavailable SANDRA, AR GLOVER Consulting Unavaila ble BALL, DR ROCHE [...] DR CAPUTO Consulting Unavailable Lalit, Antoni Unavailable Patito MOLINA Attending Unavailable Patito MOLINA Admitting Unavailable MOLINA, Patito Garcia Attending Unavailable MOLINAPatito Attending Unavailable MOLINA, Patito Garcia Admitting Unavailable Patito MOLINA Attending Unavailable DO Antoni Cohn Primary Care Provider DO Tr Garcia Admit Provider MD Olga Bailon Attending Provider Rikki MARTEL, Christen Unavailable Unavailable Antoni Cohn DO Primary Care Provider Ar Greer DO Unavailable Antoni Cohn DO Primary Care Provider [phone] Tr Garcia DO Admit Provider [phone] Olga Bailon MD Attending Provider [phone] Antoni Cohn DO Attending Provider Antoni Cohn Admitting Unavailable Lalit, Antoni Attending Unavailable Antoni Cohn Primary Care Unavailable Olga Bailon Attending Unavailable Antoni Cohn Primary Care Unavailable Tr Garcia Admitting Unavailabl Jagruti Gonzales Consulting Unavailable Otoniel Greer Consulting Unavailable Rust, Samy Consulting Unavailable Ar Espino Consulting Unavail able Minnie Valadez Consulting Unavailable Melvin Knott Consulting Unavailab Yissel Lemon Consulting Unavailable Janneth Gordon Consulting Unavailable Hal Gibbons Consulting Unavailab Ronnie Romero Consulting Unavailable Brittney Murray Consulting Unavailable Ar Greer DO Unavailable AR GREER Attending Unavailable ANOTNI COHN Primary Care Unavailable AR GREER Attending Unavailable AR GREER Referring Unavailable ANTONI COHN Primary Care Unavailable Allergies Allergy Classification Reported Allergen(s) Allergy Type Date of Onset Reaction(s) Facility (2 sources) patient allergy list reviewed by nurse or physicia Propensity to adverse reactions 8 Comment:Done YouTern Other (1 source) No Known Medication Allergies; Translations: [No Known Medication Allergies] Propensity to adverse reactions (disorder) [facility] Repository Medications Current Medications Medication Drug Class(es) Dates Sig (Normalized) Sig (Original) [id number] actuat albuterol 0.09 mg/actuat metered dose inhaler (2 sources) beta2-Adrenergic Agonist Start: 10-23-2023 take 1 puff(s) by inhalation every six hours as needed for wheezing Albuterol Sulfate 90 mcg/actuation HFA aerosol inhaler Active 2 PUFF INHALATION Every 6 hours as needed for shortness of breath or wheezing 8.5 30 October 22, 2023 11:00pm Apple Cider Vinegar (1 source) take 1 tablet by mouth twice daily APPLE CIDER VINEGAR ORAL Take 1 tablet by mouth 2 times a day. Active ascorbic acid 500 mg oral tablet (1 source) Vitamin C take 1 tablet by mouth once daily ascorbic acid (Vitamin C) 500 mg tablet Take 1 tablet (500 mg) by mouth once daily. Active aspirin 81 mg delayed release oral tablet (4 sources) Platelet Aggregation Inhibitor, Nonsteroidal Anti-inflammatory Drug Start: 12-28-2023 take 1 tablet by mouth once daily Aspirin 81 mg Tablet,Delayed Release (Dr/Ec) Active 81 MG PO Daily December 27, 2023 11:00pm atorvastatin 80 mg oral tablet (10 sources) HMG-CoA Reductase Inhibitor Start: 03-28-2024 End: 03-28-2025 take 1 tablet by mouth once daily atorvastatin (Lipitor) 80 mg tablet Indications: History of percutaneous coronary intervention Take 1 tablet (80 mg) by mouth once daily. 90 tablet 3 03/28/2024 03/28/2025 Active Start: 12-28-2023 take 1 tablet by darlene th once daily in the evening Atorvastatin 80 mg Tablet Active 80 MG PO Every evening 90 December 27, 2023 11:00pm Start: 05-17-2023 End: 12-28-2023 take 1 tablet by mouth once daily Atorvastatin 10 mg tablet Discontinued 10 MG PO Daily 90 October 31, 2023 7:19pm December 28, 2023 10:58am Start: 02-22-2023 take 1 tablet by darlene th once daily in the evening Atorvastatin Calcium 10 MG 1 tablet Orally Once a day, in evening for 90 days Feb, Active carvedilol 3.125 mg oral tablet (5 sources) alpha-Adrenergic Santa, beta-Adrenergic Santa Start: 01-05-2024 take 1 tablet by mouth twice daily at mealtime Carvedilol 3.125 mg tablet Active 3.125 MG PO Twice daily with meals 180 January 05, 2024 10:07am Start: 12-28-2023 End: 01-05-2024 take 1 tablet by mouth twice daily at mealtime Carvedilol 6.25 mg Tablet Discontinued 6.25 MG PO Twice daily with meals 180 December 27, 2023 11:00pm January 05, 2024 10:08am cholecalciferol 0.025 mg oral tablet (1 source) Vitamin D take 1 tablet by mouth once daily cholecalciferol (Vitamin D3) 25 mcg (1,000 units) tablet Take 1 tablet (25 mcg) by mouth once daily. Active dapagliflozin 10 mg oral tablet (4 sources) Sodium-Glucose Cotransporter 2 Inhibitor Start: End: take 1 tablet by mouth once daily Dapagliflozin Propanediol (Farxiga) 5 mg tablet Discontinued 5 MG PO Daily January 10, 2024 11:00pm January 12, 2024 11:32am Start: 01-10-2024 End: 01-09-2025 take 1 tablet by mouth once daily dapagliflozin propanediol (Farxiga) 10 mg Indications: Diabetes mellitus type II, non insulin dependent (Multi) , NSTEMI (non-ST elevated myocardial infarction) (Multi) Take 1 tablet (10 mg) by mouth once daily. 90 tablet 3 03/28/2024 07/10/2024 Discontinued (Therapy completed) empagliflozin 10 mg oral tablet (1 source) Sodium-Glucose Cotransporter 2 Inhibitor Start: 07-10-2024 End: 07-10-2025 take 1 tablet by mouth once daily empagliflozin (Jardiance) 10 mg tablet Indications: ASHD (arteriosclerotic heart disease) , NSTEMI (non-ST elevated myocardial infarction) (Multi) , History of percutaneous coronary intervention , Diabetes mellitus type II, non insulin dependent (Multi) Take 1 tablet (10 mg) by mouth once daily. 90 tablet 3 07/10/2024 07/10/2025 Active glimepiride 1 mg oral tablet (1 source) Sulfonylurea take 1 tablet by mouth once daily before mealtime glimepiride (Amaryl) 1 mg tablet Take 1 tablet (1 mg) by mouth once daily in the morning. Take before meals. Active Inhalational Spacing Device (Aerochamber Mini) spacer (2 sources) Start: 10-23-2023 Inhalational Spacing Device (Aerochamber Mini) spacer Active 0 .ROUTE .MEDSUPPLY October 22, 2023 11:00pm Use with MDI Start: 10-23-2023 Inhalational S pacing Device (Aerochamber Mini) spacer Active 0 .ROUTE .MEDSUPPLY October 23, 2023 12:00am Use with MDI lisinopril 20 mg oral tablet (13 sources) Angiotensin Converting Enzyme Inhibitor Start: 10-18-2023 take 1 tablet by mouth once daily Lisinopril 20 mg tablet Active 20 MG PO Daily October 18, 2023 12:40pm Start: 08-11-2023 End: 10-18-2023 take 1 tablet by mouth once daily Lisinopril 20 mg tablet Discontinued 0 .ROUTE .COMPLEX August 11, 2023 12:15pm October 18, 2023 12:41pm TAKE 1 TABLET BY MOUTH DAILY Start: 05-17-2023 End: 08-11-2023 take 1 tablet by mouth once daily Lisinopril 20 mg tablet Discontinued 20 MG PO Daily May 17, 2023 12:00am August 11, 2023 12:15pm metFORMIN hydrochloride 1000 mg oral tablet (12 sources) Biguanide Start: 01-25-2024 take 1 tablet by mouth once Metformin 1,000 mg tablet Active 1000 MG PO Once 30 January 25, 2024 2:31pm Start: 07-28-2023 End: 01-25-2024 take 1 tablet by mouth once daily Metformin 1,000 mg tablet Discontinued 0 .ROUTE .COMPLEX July 28, 2023 12:17pm January 25, 2024 2:32pm TAKE 1 TABLET BY MOUTH DAILY Start: 07-28-2023 take 1 tablet by darlene th once daily Metformin Active 0 .ROUTE .COMPLEX July 28, 2023 1:17pm On Hold: Resume on 12/29/23. TAKE 1 TABLET BY MOUTH DAILY Start: 05-17-2023 End: 07-28-2023 take 1 tablet by mouth once daily Metformin 1,000 mg tablet Discontinued 1000 MG PO Daily May 17, 2023 12:00am July 28, 2023 12:17pm take 1 tablet by darlene th twice daily metFORMIN (Glucophage) 1,000 mg tablet Take 1 tablet (1,000 mg) by mouth 2 times daily (morning and late afternoon). Active take 1 tablet by darlene th once daily metFORMIN HCl 1000 MG TAKE 1 TABLET BY MOUTH DAILY Active multivitamin tablet (1 source) take 1 tablet by mouth once daily multivitamin tablet Take 1 tablet by mouth once daily. Active nitroglycerin 0.4 mg sublingual tablet (4 sources) Nitrate Vasodilator Start: 10-17-20 24 Nitroglycerin 0.4 mg Tablet, Sublingual Active 0.4 MG SUBLINGUAL Q5M as needed for Chest Pain December 27, 2023 11:00pm One Touch Glucometer (5 sources) One Touch Glucom eter Use to test home BS transcutaneous Use to test home BS qd for 365 days Active Semaglutide (Rybelsus) 3 mg tablet (1 source) Start: 03-21-19 25 take 1 tablet by mouth once daily Semaglutide (Rybelsus) 3 mg tablet Active 3 MG PO Daily March 21, 2024 12:00am ticagrelor 90 mg oral tablet (5 sources) Start: 12-28-19 End: 04-29-19 26 take 1 tablet by mouth twice daily ticagrelor (Brilinta) 90 mg tablet Indications: NSTEMI (non-ST elevated myocardial infarction) (Multi) , History of percutaneous coronary intervention Take 1 tablet (90 mg) by mouth 2 times a day. 180 tablet 3 04/29/2024 04/29/2025 Active vitamin b12 1 mg oral tablet (1 source) Vitamin B12 take 1 tablet by mouth once daily cyanocobalamin (Vitamin B-12) 1,000 mcg tablet Take 1 tablet (1,000 mcg) by mouth once daily. Active Completed/Discontinued Medications Medication Drug Class(es) Dates Sig (Normalized) Sig (Original) linagliptin 5 mg oral tablet (1 source) Dipeptidyl Peptidase 4 Inhibitor Start: 01-26-2024 End: 02-21-2024 take 1 tablet by mouth once daily Linagliptin (Tradjenta) 5 mg tablet Discontinued 5 MG PO Daily January 26, 2024 12:00am February 21, 2024 9:13am Semaglutide (2 sources) Start: 03-21-2024 End: 03-21-2024 Semaglutide (Ozempic) 0.25 mg or 0.5 mg (2 mg/3 mL) pen injector Discontinued 0.5 MG SUBCUT every week 3 March 21, 2024 9:51am March 21, 2024 1:46pm for 4 weeks Start: 02-21-2024 End: 03-21-2024 Semaglutide (Ozempic) 0.25 m g or 0.5 mg (2 mg/3 mL) pen injector Discontinued 0.25 MG SUBCUT every week 1.472 February 21, 2024 12:00am March 21, 2024 9:51am for 4 weeks Problems Active Problems Problem Classification Problem Date Documented Date Episodic/Chronic Acute myocardial infarction (13 sources) Myocardial infarction; Translations: [Non-ST elevation (NSTEMI) myocardial infarction] Onset: 12-26-2023 12-26-2023 Chronic Asthma (2 sources) Asthma; Translations: [Unspecified asthma, uncomplicated] 10-23-2023 Chronic Biliary tract disease (10 sources) Cholelithiasis without obstruction; Translations: [Calculus of gallbladder without cholecystitis without obstruction] Onset: 02-15-2022 Episodic Cancer of bladder (14 sources) Malignant neoplasm of bladder, unspecified; 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] Onset: 01-11-2018 Chronic Comment on above: 2017 w/ recurrence Cardiac dysrhythmias (4 sources) Drug-induced bradycardia; Translations: [Bradycardia, unspecified] 01-05-2024 Episodic Chronic kidney disease (4 sources) Chronic kidney disease stage 3; Translations: [Chronic kidney disease, stage 3 unspecified] Onset: 02-07-2018 06-17-2023 Chronic Chronic kidney disease (2 sources) Chronic kidney disease; Translations: [Chronic kidney disease, stage 3 unspecified] Onset: 02-07-2018 Chronic obstructive pulmonary disease and bronchiectasis (6 sources) Mucopurulent chronic bronchitis; Translations: [Mucopurulent chronic bronchitis] 05-17-2023 Chronic Coronary atherosclerosis and other heart disease (15 sources) Exercise-induced angina; Translations: [Exertional angina] Onset: 12-26-2023 12-26-2023 Chronic Comment on above: LHC: LCx PCI/stent, LAD PCI/stent, RCA PCI/stent - 12/2023 Diabetes mellitus with complications (20 sources) Type 2 diabetes mellitus with hyperglycemia; Translations: [Type 2 diabetes mellitus] Onset: 04-11-2014 Chronic Diabetes mellitus without complication (16 sources) Type 2 diabetes mellitus without complications; Translations: [Type 2 diabetes mellitus without complication] Onset: 10-14-2013 12-26-2023 Chronic Diseases of mouth; excluding dental (2 sources) Hypertrophy of tongue papillae; Translations: [Hypertrophy of tongue papillae] Episodic Disorders of lipid metabolism (20 sources) Hypercholesterolemia; Translations: [Pure hypercholesterolemia, unspecified] Onset: 12-26-2014 Chronic Essential hypertension (20 sources) Essential (primary) hypertension; Translations: [Essential hypertension] [...] melanoma of cheek (external)] Onset: 03-13-2011 Chronic Nonspecific chest pain (6 sources) Other chest pain; Translations: [Chest pain, unspecified] Resolved: 11-16-2020 12-26-2023 Episodic Nutritional deficiencies (3 sources) Vitamin D deficiency, unspecified; Translations: [Vitamin D deficiency] Onset: 03-17-2021 Chronic Osteoarthritis (9 sources) Osteoarthritis of right foot; Translations: [Primary osteoarthritis, right ankle and foot] Chronic Other aftercare (2 sources) Other emt intermediate (current) drug therapy; Translations: [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 DRUG THERAPY] Onset: 11-17-2021 Episodic Other aftercare (1 source) Long-term current use of drug therapy; Translations: [Other mcfp (current) drug therapy] Episodic Other and unspecified [...] [Personal history of colonic polyps] Episodic Other ear and sense organ disorders (2 sources) Sensorineural hearing loss; Translations: [Unspecified sensorineural hearing loss] 08-14-2023 Chronic Other ear and sense organ disorders (5 sources) Impacted cerumen; Translations: [Impacted cerumen, bilateral] Onset: 04-06-2016 Resolved: 11-16-2020 08-14-2023 Episodic Other injuries and conditions due to external causes (1 source) History of falling; Translations: [History of falling] Episodic Other injuries and conditions due to external causes (1 source) History of fall; Translations: [History of falling] Episodic Other lower respiratory disease (4 sources) Cough; Translations: [Cough] Onset: 10-14-2015 10-18-2023 Episodic Other lower respiratory disease (2 sources) Dyspnea; Translations: [Shortness of breath] Resolved: 09-09-2019 02-21-2024 Episodic Other lower respiratory disease (1 source) Dyspnea, unspecified; Translations: [Other respiratory abnormalities] 02-21-2024 Episodic Other lower respiratory disease (1 source) Other forms of dyspnea; Translations: [Other forms of dyspnea] Onset: 03-21-2024 Episodic Other non-epithelial cancer of skin (5 sources) Personal history of other malignant neoplasm of skin; Translations: [Basal cell carcinoma of skin, unspecified] Onset: 11-19-2021 Episodic Other non-traumatic joint disorders (1 source) Lower limb joint arthritis; Translations: [Osteoarthrosis, unspecified whether generalized or localized, lower leg] Onset: 11-08-2013 Chronic Other nutritional; endocrine; and metabolic disorders (3 sources) Obesity, unspecified; Translations: [Obesity, unspecified] 01-05-2024 Chronic Other nutritional; endocrine; and metabolic disorders (2 sources) Obesity; Translations: [Obesity, unspecified] 01-05-2024 Chronic Other nutritional; endocrine; and metabolic disorders (2 sources) Body mass index 30+ - obesity; Translations: [Body mass index (BMI) 30.0-30.9, adult] Onset: 07-10-2024 07-10-2024 Chronic Other nutritional; endocrine; and metabolic disorders (2 sources) Body mass index (BMI) 30.0-30.9, adult; Translations: [Body mass index (BMI) 30.0-30.9, adult] Onset: 07-10-2024 Chronic Other screening for suspected conditions (not mental disorders or infectious disease) (7 sources) Encounter for screening for malignant neoplasm of prostate; Translations: [Elevated prostate specific antigen [PSA]] Onset: 06-11-2018 Episodic Other upper respiratory infections (2 sources) Chronic [...] without myelopathy] Onset: 03-19-2014 Chronic Substance-related disorders (20 sources) Nicotine dependence, cigarettes, uncomplicated; Translations: [Tobacco [...] HX MALIG NEOPLASM BLADDER] Onset: 11-19-2021 Episodic Coronary atherosclerosis and other heart disease (6 sources) History of percutaneous coronary intervention; Translations: [Coronary angioplasty status] Onset: 01-10-2024 01-10-2024 Episodic Diabetes mellitus with complications (2 sources) [...] UNS BEHAVIOR OF BLADDER] Onset: 11-11-2021 Episodic Open wounds of extremities (4 sources) Laceration with foreign body of left index finger with damage to nail, subsequent encounter; Translations: [Laceration with foreign body of left index finger with damage to nail, initial encounter] Onset: 06-07-2017 Episodic Other aftercare (1 source) 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; Translations: [SENIOR LIVING USE ORAL HYPOGLYCEMIC DX] Onset: 11-17-2021 Episodic [...] index 28.0-28.9, adult] Onset: 06-16-2015 Episodic Other nutritional; endocrine; and metabolic disorders (4 sources) Overweight in adulthood with body mass index of 25 or more but less than 30; Translations: [Body mass index (BMI) 29.0-29.9, adult] Onset: 01-10-2024 Resolved: 07-10-2024 01-10-2024 Episodic Other nutritional; endocrine; and metabolic disorders (1 source) Body mass index (BMI) 29.0-29.9, adult; Translations: [Body mass index (BMI) 29.0-29.9, adult] Onset: 01-10-2024 Episodic Residual codes; unclassified (1 source) Tobacco use; Translations: [Tobacco use] Onset: 06-16-2015 Episodic Residual codes; unclassified (2 sources) Tobacco user; Translations: [Tobacco use] Onset: 11-08-2013 Episodic Spondylosis; intervertebral disc disorders; other back problems (5 sources) Radiculopathy, cervical region; Translations: [Low back pain] Onset: 04-11-2014 05-17-2023 Episodic Sprains and strains (4 sources) Strain [...] use of other medications] Onset: 01-17-2017 Unclassified (2 sources) Onset: 01-10-2024 Resolved: 07-10-2024 01-10-2024 Results Test Name Value Interpretation Reference Range Facility A1C with Estimated Average G princealistair 03-21-2024 Glucose [Mass/Vol] 194 mg/dL Normal [facility] Comment on above: Result Comment: PERF ORMED BY: [place] [address] PATHOLOGIST FACILITIES MAINTENANCE ASSISTANT CLAUDY BARBOZA M.D. Performed By: #### A 1C [facility] eA #### [address] HbA1c (Bld) [Mass fraction] 8.4 % High 4.3-5.6 [facility] Comment on above: Result Comment: Incr eased risk for diabetes: 5.7 - 6.4 diabetes: >6.4 glycemic control for adults with diabetes: <7.0 Performed By: #### A 1C [facility] eA #### [address] Blood estimated average gluc ose determination by estimation from glycated hemoglobinOrdered By: Antoni Cohn on 03-21-2024 Average glucose Estimated from glycated hemoglobin (Bld) [Mass/Vol] Glucose mean value [Mass/volume] in Blood Estimated from glycated hemoglobin [facility] ECH echo transthoracicon [facility] echo transthoracic [facility] [place] [address] [place] [address] Echocardiogram Signed Patient: Jesse Garrison MR#: [id number] : 1950 Acct:[id number] Age/Sex: 74 / M ADM Date: 03/21/24 Loc: Room: Type: [facility] Attending Dr: Antoni Cohn DO Ordering Provider: Antoni Cohn DO Date of Service: 03/21/2412/05/736 ECH/[facility] echo transthoracic: R06.09 - Other forms of dyspnea Copies to: DO Minnie Uriarte MD BSA: 2.1 m2 BP: 118/60 mmHg HR: 59 Reason For Study: Other forms of dyspnea History: PCI. NSTEMI. DM. CKD. HTN. Former Smoker. Interpretation Summary Ejection Fraction = 60-65%. Mild concentric left ventricular hypertrophy. A variety of Doppler measurements indicate impaired left ventricular relaxation, which is associated with grade I/IV or mild diastolic dysfunction. There is no comparison study available. Procedure/Quality: A two-dimensional transthoracic echocardiogram with color flow and Doppler was performed. The study was technically good in quality. Left Ventricle: The left ventricular size is normal. Mild concentric left ventricular hypertrophy. Ejection Fraction = 60-65%. A variety of Doppler measurements indicate impaired left ventricular relaxation, which is associated with grade I/IV or mild diastolic dysfunction. The left ventricular wall motion is normal. Left Atrium: The left atrium appears normal in size. The atrial septum appears normal. Right Atrium: The right atrium appears normal in size. Right Ventricle: The right ventricular size, thickness and function are normal. Aortic Valve: The aortic valve is normal in structure and function. No aortic regurgitation is present. Mitral Valve: The mitral valve is normal in structure and function. There is no mitral regurgitation noted. Tricuspid Valve: The tricuspid valve is normal in structure and function. No tricuspid regurgitation. Pulmonic Valve: The pulmonic valve is normal in structure and function. Arteries: The aortic root is normal size. Pericardium/Pleura: No pericardial effusion seen. There is no pleural effusion. IVC/Hepatic Veins: The inferior vena cava is normal in size, with a normal collapsibility index. Measurements with Normals IVSd: 1.2 cm (0.7-1.1 cm)LVIDd: 4.0 cm (3.7-5.4 cm) LVPWd: 1.2 cm (0.7-1.1 cm)LVIDs: 2.7 cm (2.3-3.6 cm) LA dimension: 3.5 cm (2.3-4.0 cm)Ao root diam: 3.7 cm(2.0-3.6 cm) asc Aorta Diam: 3.6 cm(2.1-3.4cm) Doppler with Normals LV V1 max: 100.9 cm/sec (0.7-1.7m/s)MV E max darrius: 59.6 cm/sec(0.8-1.3m/s) MV A max darrius: 83.6 cm/sec(0.0-0.0m/s) MV E/A: 0.71 (<1.5) MMode/2D Measurements Calculations TAPSE: 2.8 cm FS: 33.5 % Ao root area: LVOT diam: 2.2 cm RV S Darrius: EDV(Teich): 10.6 cm2 LVOT area: 4.0 cm2 12.7 cm/sec 70.2 ml ESV(Teich): 26.1 ml EF(Teich): 62.9 % __ LVLd ap4: 8.6 cm SV(MOD-sp4): LAV(MOD-sp4): LA A2 area: 14.2 cm2 EDV(MOD-sp4): 74.0 ml 34.4 ml 112.0 ml LAV(MOD-sp2): LA A4 area: 15.1 cm2 LVLs ap4: 7.6 cm 32.7 ml LA length (vol): ESV(MOD-sp4): 5.3 cm 38.0 ml LA vol: 34.4 ml EF(MOD-sp4): 66.1 % LA vol index: 16.5 ml/m2 Doppler Measurements Calculations MV dec time: MV V2 max: E/E' lat: 8.2 MV dec slope: 0.25 sec 91.7 cm/sec E/E' med: 12.2 MV max P.4 mmHg 234.9 cm/sec2 MV V2 mean: 50.5 cm/sec MV mean P.2 mmHg MV V2 VTI: 29.6 cm MVA(VTI): 2.8 cm2 __ Ao V2 max: LV V1 max PG: RAP systole: 103.2 cm/sec 4.1 mmHg 3.0 mmHg Ao max P.3 mmHg LV V1 mean PG: Ao mean P.0 mmHg 2.3 mmHg LV V1 mean: Ao V2 mean: 65.4 cm/sec 71.8 cm/sec LV V1 VTI: 21.1 cm Ao V2 VTI: 19.7 cm GRISELDA(I,D): 4.2 cm2 GRISELDA(V,D): 3.9 cm2 Transcribed By: SCV Performed At: 03/21/24 0748 Signed By: Minnie Valadez MD 03/21/24 1504 Normal [facility] Hemoglobin A1c/Hemoglobin.to rachele in BloodOrdered By: Anotni Cohn on 03-21-2024 HbA1c (Bld) [Mass fraction] Hemoglobin A1c percentage High 4.3-5.6 [facility] Comment on above: Increased risk for d iabetes: 5.7 - 6.4diabetes: >6.4glycemic control for adults with diabetes: <7.0 X-ray reportOrdered By: Eddy Mendoza on 03-21-2024 Study report [facility] [place] [address] XRay Report Signed Patient: Jesse Garrison MR#: [id number] : 1950 Acct:[id number] Age/Sex: 74 / M ADM Date: 5 Loc: Room: Type: [facility] Attending Dr: Antoni Cohn DO Copies to: Antoni Cohn DO~ Ordering Provider: Antoni Cohn DO Date of Service: 03/21/24 XR/XR chest 2V*: R06.09 - Other forms of dyspnea PA AND LATERAL CHEST: CLINICAL HISTORY: Shortness of breath COMPARISON: 12/26/2023 FINDINGS: The cardiomediastinal is unremarkable in size. Lungs are clear free of focal airspace consolidation, pleural effusion or pneumothorax. Multilevel degenerative changes of the thoracic spine. XR/XR chest 2V* IMPRESSION: NO ACUTE CARDIOPULMONARY ABNORMALITY. Impression dictated by: Dallas Mendoza M.D.03/21/2024 8:45 AM Dictation Location: RADIO-PC-23 Transcribed By: ERICK 03/21/2445 Dictated By: Dallas Mendoza MD 03/21/2442 Signed By: 03/21/24844 [facility] Work Phone: XR chest 2V*on 03-21-2024 XR chest 2V* [facility] [place] [address] [place] [address] XRay Report Signed Patient: Jesse Garrison MR#: [id number] : 1950 Acct:[id number] Age/Sex: 74 / M ADM Date: 03/21/24 Loc: Room: Type: [facility] Attending Dr: Antoni Cohn DO Copies to: Antoni Cohn DO Ordering Provider: Antoni Cohn DO Date of Service: 03/21/24 XR/XR chest 2V*: R06.09 - Other forms of dyspnea PA AND LATERAL CHEST: CLINICAL HISTORY: Shortness of breath COMPARISON: 12/26/2023 FINDINGS: The cardiomediastinal is unremarkable in size. Lungs are clear free of focal airspace consolidation, pleural effusion or pneumothorax. Multilevel degenerative changes of the thoracic spine. XR/XR chest 2V* IMPRESSION: NO ACUTE CARDIOPULMONARY ABNORMALITY. Impression dictated by: Dallas Mendoza M.D.03/21/2024 8:45 AM Dictation Location: RADIO-PC-23 Transcribed By: ERICK 03/21/2445 Dictated By: Dallas Mendoza MD 03/21/2442 Signed By: 03/21/24844 Normal [facility] Automated basophil %Ordered By: Tr Garcia on 12-28-2023 Basophils/100 WBC (Bld) 0.3 % Normal . [facility] Comment on above: Performed By: #### L IPID, BNP, BMP, CBC #### [address] Automated basophil countOrde red By: Tr Garcia on 12-28-2023 Basophils (Bld) [#/Vol] 0.0 10*3/uL Normal 0.0-0.2 [facility] Comment on above: Result Comment: PERF ORMED BY: [place] [address] PATHOLOGIST FACILITIES MAINTENANCE ASSISTANT CHANCE ALMARAZ M.D. Performed By: #### L IPID, BNP, BMP, CBC #### [address] Automated blood monocyte cou ntOrdered By: Tr Garcia on 12-28-2023 Monocytes (Bld) [#/Vol] 0.7 10*3/uL Normal 0.0-0.8 [facility] Comment on above: Performed By: #### L IPID, BNP, BMP, CBC #### [address] Automated eosinophil %Ordere d By: Tr Garcia on 12-28-2023 Eosinophils/100 WBC (Bld) 1.5 % Normal . [facility] Comment on above: Performed By: #### L IPID, BNP, BMP, CBC #### [address] Automated eosinophil countOr dered By: Tr Garcia on 12-28-2023 Eosinophils (Bld) [#/Vol] 0.2 10*3/uL Normal 0.0-0.45 [facility] Comment on above: Performed By: #### L IPID, BNP, BMP, CBC #### [address] Automated monocyte %Ordered By: Tr Garcia on 12-28-2023 Monocytes/100 WBC (Bld) 5.6 % Normal . [facility] Comment on above: Performed By: #### L IPID, BNP, BMP, CBC #### [address] [address] [place] Automated neutrophil %Ordere d By: Tr Garcia on 12-28-2023 Neutrophils/100 WBC (Bld) 70.6 % Normal . [facility] Comment on above: Performed By: #### L IPID, BNP, BMP, CBC #### [facility] [address] [place] [address] BNP ser/plasOrdered By: Rich Garcia on 12-28-2023 Natriuretic peptide B (Bld) [Mass/Vol] 35.0 pg/mL Normal 5-100 [facility] Comment on above: Result Comment: PERF ORMED BY: [place] [address] PATHOLOGIST FACILITIES MAINTENANCE ASSISTANT CHANCE ALMARAZ M.D. Performed By: #### L IPID, BNP, BMP, CBC #### [facility] [address] [place] [address] Basic Metabolic Panelon 12-11 Creatinine Clr Calc Pharmacy 75.00 Normal [facility] Comment on above: Performed By: #### L IPID, BNP, BMP, CBC #### [facility] [address] [place] [address] GFR/1.73 sq M.predicted MDRD (S/P/Bld) [Vol rate/Area] mL/min/{1.73_m2} Normal [facility] Comment on above: Performed By: #### L IPID, BNP, BMP, CBC #### [facility] [address] [place] [address] Basophils Auto (Bld) [#/Vol] Ordered By: Tr Garcia on 12-28-2023 Basophils (Bld) [#/Vol] Automated basophil count 0.0-0.2 [facility] Basophils/100 WBC Auto (Bld) Ordered By: Tr Garcia on 12-28-2023 Basophils/100 WBC (Bld) Automated basophil % . [facility] Calcium [Mass/volume] in Ser um or PlasmaOrdered By: Tr Garcia on 12-28-2023 Calcium [Mass/Vol] 9.2 mg/dL Normal 8.6-10.3 [facility] Comment on above: Performed By: #### L IPID, BNP, BMP, CBC #### [facility] [address] Calcium [Mass/Vol] Calcium [Mass/volume ] in Serum or Plasma 8.6-10.3 [facility] Capillary blood glucose clarence urement by glucometer (mass/volume)Ordered By: Olga Bailon on 12-28-2023 Glucose [Mass/Vol] 201 mg/dL Normal [facility] Comment on above: Random Glucose Refer ence Range is dependent on time and content of last meal. Glucose of more than 200 mg/dL in a nonstressed, ambulatory subject supports the diagnosis of Diabetes Mellitus. Result Comment: [place] Glucose Reference Range is dependent on time and content of last meal. Glucose of more than 200 mg/dL in a nonstressed, ambulatory subject supports the diagnosis of Diabetes Mellitus. PERFORMED BY: [address] [place] [address] PATHOLOGIST FACILITIES MAINTENANCE ASSISTANT CHANCE ALMARAZ M.D. Performed By: #### L IPID, BNP, BMP, CBC #### [facility] [address] [place] [address] Carbon dioxide, total [Moles /volume] in Serum or PlasmaOrdered By: Tr Garcia on 12-28-2023 CO2 [Moles/Vol] 24.8 mmol/L Normal 21.0-31.0 [facility] Comment on above: Performed By: #### L IPID, BNP, BMP, CBC #### [facility] [address] [place] [address] [place] CO2 [Moles/Vol] Carbon dioxide, tota l [Moles/volume] in Serum or Plasma 21.0-31.0 [facility] Chloride [Moles/volume] in S mp or PlasmaOrdered By: Tr Garcia on 12-28-2023 Chloride [Moles/Vol] 103 mmol/L Normal 98-107 [facility] Comment on above: Performed By: #### L IPID, BNP, BMP, CBC #### [facility] [address] [place] [id number] [place] Chloride [Moles/Vol] Chloride [Moles/vol ume] in Serum or Plasma 98-107 [facility] Cholesterol [Mass/volume] in Serum or PlasmaOrdered By: Otoniel Greer on 12-28-2023 Cholesterol [Mass/Vol] 126 mg/dL Low 140-200 [facility] Comment on above: Chol less than 200 m g/dl low riskChol 201-239 mg/dl borderline riskChol 240 mg/dl and greater high risk Result Comment: Chol less than 200 mg/dl low risk Chol 201-239 mg/dl borderline risk Chol 240 mg/dl and greater high risk Performed By: #### L IPID, BNP, BMP, CBC #### [facility] [address] [place] [id number] [facility] Cholesterol [Mass/Vol] Cholesterol [Mass /volume] in Serum or Plasma Low 140-200 [facility] Comment on above: Chol less than 200 m g/dl low riskChol 201-239 mg/dl borderline riskChol 240 mg/dl and greater high risk Cholesterol in HDL [Mass/vol ume] in Serum or PlasmaOrdered By: Otoniel Greer on 12-28-2023 Cholesterol in HDL [Mass/Vol] Serum or plasma high density lipoprotein (HDL) cholesterol measurement 23-92 [facility] Comment on above: HDL CHOL ATP-III CLA SSIFICATION Cardiovascular RiskHDL > or equal to 60 mg/dL LOWHDL < 40 mg/dL HIGH Cholesterol in LDL Calc [Mas s/Vol]Ordered By: Otoniel Greer on 12-28-2023 Cholesterol in LDL [Mass/Vol] 43 mg/dL 0-100 [facility] Comment on above: LDL ATP III CLASSIFI CATIONLDL less than 100 mg/dL OptimalLDL 100-129 mg/dL Near or above optimalLDL 130-159 mg/dL Borderline highLDL 160-189 mg/dL HighLDL greater than 189 mg/dL Very high Cholesterol in LDL [Mass/Vol] Cholesterol in LDL [Mass/volume] in Serum or Plasma by calculation 0-100 [facility] Comment on above: LDL ATP III CLASSIFI CATIONLDL less than 100 mg/dL OptimalLDL 100-129 mg/dL Near or above optimalLDL 130-159 mg/dL Borderline highLDL 160-189 mg/dL HighLDL greater than 189 mg/dL Very high Cholesterol in VLDL Calc [Ma ss/Vol]Ordered By: Otoniel Greer on 12-28-2023 Cholesterol in VLDL [Mass/Vol] 52 mg/dL [facility] Cholesterol in VLDL [Mass/Vol] Cholesterol in VLDL [Mass/volume] in Serum or Plasma by calculation [facility] Complete Blood Count Auto Di ffon 12-28-2023 Mean Corpuscular HGB Conc 35.3 g/dL Normal 32.5-35.6 [facility] Comment on above: Performed By: #### L IPID, BNP, BMP, CBC #### [facility] [address] [place] [address] NRBC% 0.0 /100{WBC} Normal 0-0.5 [facility] Comment on above: Performed By: #### L IPID, BNP, BMP, CBC #### [facility] [address] [place] [address] Creatinine [Mass/volume] in Serum or PlasmaOrdered By: Tr Garcia on 12-28-2023 Creatinine [Mass/Vol] 0.99 mg/dL Normal 0.70-1.30 [facility] Comment on above: Performed By: #### L IPID, BNP, BMP, CBC #### [facility] [address] [place] [address] Creatinine [Mass/Vol] Creatinine [Mass/v olume] in Serum or Plasma 0.70-1.30 [facility] ECG 12 lead ECGon 12-28-2023 ECG 12 lead ECG [facility] [place] [address] [place] [address] Electrocardiograph Report Signed Patient: Jesse Garrison MR#: [id number] : 1950 Acct:[id number] Age/Sex: 73 / M ADM Date: 12/26/23 Loc: Room: [address] [place] [address] Type: DIS IN Attending Dr: Olga Bailon MD Ordering Provider: W Malachi Greer DO Date of Service: 12/28/23 ECG/ECG 12 lead ECG: Post Angioplasty Procedure in AM Copies to: Test Reason : Blood Pressure : */* mmHG Vent. Rate : 61 BPM Atrial Rate : 61 BPM P-R Int : 160 ms QRS Dur : 138 ms QT Int : 440 ms P-R-T Axes : 44 -63 62 degrees QTcB Int : 442 ms Normal sinus rhythm Right bundle branch block Abnormal ECG When compared with ECG of 27-Dec-2023 07:57, (Unconfirmed) No significant change was found Confirmed by MARCIE BLAKE [facility], SAMY ([id number]) on 12/28/2023 4:23:52 PM Referred By: Electronically Signed By: SAMY RUST MD [facility] Transcribed By: MUS Signed By Samy Rust MD, FACC 12/28/23 1623 Normal [facility] Eosinophils Auto (Bld) [#/Vo l]Ordered By: Tr Garcia on 12-28-2023 Eosinophils (Bld) [#/Vol] Automated eosinophil count 0.0-0.45 [facility] Eosinophils/100 WBC Auto (Bl d)Ordered By: Tr Garcia on 12-28-2023 Eosinophils/100 WBC (Bld) Automated eosinophil % . [facility] Erythrocyte distribution wid th Auto (RBC) [Ratio]Ordered By: Tr Garcia on 12-28-2023 Erythrocyte distribution width (RBC) [Ratio] Erythrocyte distribution width [Ratio] by Automated count 12.0-14.8 [facility] Erythrocyte distribution wid th [Ratio] by Automated countOrdered By: Tr Garcia on 12-28-2023 Erythrocyte distribution width (RBC) [Ratio] 12.5 % Normal 12.0-14.8 [facility] Comment on above: Performed By: #### L IPID, BNP, BMP, CBC #### [facility] [address] Erythrocytes [#/volume] in B lood by Automated countOrdered By: Tr Garcia on 12-28-2023 RBC (Bld) [#/Vol] 4.95 10*6/uL Normal 3.90-5.60 [facility] Comment on above: Performed By: #### L IPID, BNP, BMP, CBC #### [facility] [address] [place] [address] [place] Glucose Glucometer (BldC) [M ass/Vol]Ordered By: Olga Bailon on 12-28-2023 Glucose [Mass/Vol] Capillary blood gluc ose measurement by glucometer (mass/volume) [facility] Comment on above: Random Glucose Refer ence Range is dependent on time and content of last meal. Glucose of more than 200 mg/dL in a nonstressed, ambulatory subject supports the diagnosis of Diabetes Mellitus. Glucose Poct Glucometerson 1 Glucose [Mass/Vol] 168 mg/dL Normal [facility] Comment on above: Result Comment: [place] Glucose Reference Range is dependent on time and content of last meal. Glucose of more than 200 mg/dL in a nonstressed, ambulatory subject supports the diagnosis of Diabetes Mellitus. PERFORMED BY: [address] [place] [address] PATHOLOGIST FACILITIES MAINTENANCE ASSISTANT CHANCE ALMARAZ M.D. Performed By: #### L IPID, BNP, BMP, CBC #### [place] [address] [place] Glucose [Mass/volume] in Ser um or PlasmaOrdered By: Tr Garcia on 12-28-2023 Glucose [Mass/Vol] 135 mg/dL High 70-100 [facility] Comment on above: ADA recommended refe rence rangeRandom Glucose Reference Range is dependent on time and content of last meal. Glucose of more than 200 mg/dL in a nonstressed, ambulatory subject supports the diagnosis of Diabetes Mellitus. Result Comment: [place] om Glucose Reference Range is dependent on time and content of last meal. Glucose of more than 200 mg/dL in a nonstressed, ambulatory subject supports the diagnosis of Diabetes Mellitus. ADA recommended reference range Performed By: #### L IPID, BNP, BMP, CBC #### [facility] [address] [place] [id number] [place] Glucose [Mass/Vol] Glucose [Mass/volume ] in Serum or Plasma High 70-100 [facility] Comment on above: ADA recommended refe rence rangeRandom Glucose Reference Range is dependent on time and content of last meal. Glucose of more than 200 mg/dL in a nonstressed, ambulatory subject supports the diagnosis of Diabetes Mellitus. Hematocrit Auto (Bld) [Volum e fraction]Ordered By: Tr Garcia on 12-28-2023 Hematocrit (Bld) [Volume fraction] Hematocrit [Volume Fraction] of Blood by Automated count 38.8-50.0 [facility] Hematocrit [Volume Fraction] of Blood by Automated countOrdered By: Tr Garcia on 12-28-2023 Hematocrit (Bld) [Volume fraction] 43.5 % Normal 38.8-50.0 [facility] Comment on above: Performed By: #### L IPID, BNP, BMP, CBC #### [facility] [address] [place] [address] [place] Hemoglobin [Mass/volume] in BloodOrdered By: Tr Garcia on 12-28-2023 Hemoglobin (Bld) [Mass/Vol] 15.4 g/dL Normal 13.0-17.0 [facility] Comment on above: Performed By: #### L IPID, BNP, BMP, CBC #### [facility] [address] [place] [address] [place] Hemoglobin (Bld) [Mass/Vol] Hemoglobin [Mass/volume] in Blood 13.0-17.0 [facility] Leukocytes [#/volume] correc adriel for nucleated erythrocytes in Blood by Automated counOrdered By: Tr Garcia on 12-28-2023 WBC corrected for nucl RBC Auto (Bld) [#/Vol] 12.8 10*3/uL High 4.1-10.5 [facility] WBC corrected for nucl RBC Auto (Bld) [#/Vol] Leukocytes [#/volume] corrected for nucleated erythrocytes in Blood by Automated coun High 4.1-10.5 [facility] Leukocytes [#/volume] in Blo od by Automated countOrdered By: Tr Garcia on 12-28-2023 WBC (Bld) [#/Vol] 12.8 10*3/uL High 4.1-10.5 [facility] Comment on above: Performed By: #### L IPID, BNP, BMP, CBC #### [facility] [address] Lipid Panelon 12-28-2023 LDL Cholesterol,Calculated 43 mg/dL Normal 0-100 [facility] Comment on above: Result Comment: LDL ATP III CLASSIFICATION LDL less than 100 mg/dL Optimal LDL 100-129 mg/dL Near or above optimal LDL 130-159 mg/dL Borderline high LDL 160-189 mg/dL High LDL greater than 189 mg/dL Very high Performed By: #### L IPID, BNP, BMP, CBC #### [address] Triglyceride w/Reflex 262 mg/dL High 0-149 [facility] Comment on above: Result Comment: TRIG ATP III CLASSIFICATION TRIG less than 150 mg/dL Normal TRIG 150-199 mg/dL Borderline high TRIG 200-500 mg/dL High TRIG greater than 500 mg/dL Very high Standard traceable to the Center for Disease Conrtrol and Prevention (CDC) test method. Performed By: #### L IPID, BNP, BMP, CBC #### [address] VLDL CHOLESTEROL 52 mg/dL Normal [facility] Comment on above: Performed By: #### L IPID, BNP, BMP, CBC #### [address] Lymphocytes Auto (Bld) [#/Vo l]Ordered By: Tr Garcia on 12-28-2023 Lymphocytes (Bld) [#/Vol] Lymphocytes [#/volume] in Blood by Automated count 1.00-4.8 [facility] Lymphocytes [#/volume] in Bl ood by Automated countOrdered By: Tr Garcia on 12-28-2023 Lymphocytes (Bld) [#/Vol] 2.8 10*3/uL Normal 1.00-4.8 [facility] Comment on above: Performed By: #### L IPID, BNP, BMP, CBC #### [facility] [address] Lymphocytes/100 WBC Auto (Bl d)Ordered By: Tr Garcia on 12-28-2023 Lymphocytes/100 WBC (Bld) Lymphocytes/100 leukocytes in Blood by Automated count . [facility] Lymphocytes/100 leukocytes i n Blood by Automated countOrdered By: Tr Garcia on 12-28-2023 Lymphocytes/100 WBC (Bld) 22.0 % Normal . [facility] Comment on above: Performed By: #### L IPID, BNP, BMP, CBC #### [facility] [address] MCH Auto (RBC) [Entitic mass ]Ordered By: Tr Garcia on 12-28-2023 MCH (RBC) [Entitic mass] MCH [Entitic mass] by Automated count 27.5-35.2 [facility] MCH [Entitic mass] by Automa adriel countOrdered By: Tr Garcia on 12-28-2023 MCH (RBC) [Entitic mass] 31.0 pg Normal 27.5-35.2 [facility] Comment on above: Performed By: #### L IPID, BNP, BMP, CBC #### [facility] [address] [place] [address] MCHC Auto (RBC) [Mass/Vol]Or dered By: Tr Garcia on 12-28-2023 MCHC (RBC) [Mass/Vol] 35.3 g/dL 32.5-35.6 [facility] MCHC (RBC) [Mass/Vol] MCHC [Mass/volume] by Automated count 32.5-35.6 [facility] MCV Auto (RBC) [Entitic vol] Ordered By: Tr Garcia on 12-28-2023 MCV (RBC) [Entitic vol] MCV [Entitic vol ume] by Automated count 83.5-101 [facility] MCV [Entitic volume] by Auto mated countOrdered By: Tr Garcia on 12-28-2023 MCV (RBC) [Entitic vol] 87.9 fL Normal 83.5-101 [facility] Comment on above: Performed By: #### L IPID, BNP, BMP, CBC #### [facility] [address] [place] [address] [place] Monocytes Auto (Bld) [#/Vol] Ordered By: Tr Garcia on 12-28-2023 Monocytes (Bld) [#/Vol] Automated blood monocyte count 0.0-0.8 [facility] Monocytes/100 WBC Auto (Bld) Ordered By: Tr Garcia on 12-28-2023 Monocytes/100 WBC (Bld) Automated monocyte % . [facility] Natriuretic peptide B [Mass/ Vol]Ordered By: Tr Garcia on 12-28-2023 Natriuretic peptide B (Bld) [Mass/Vol] BNP ser/plas 5-100 [facility] Neutrophils Auto (Bld) [#/Vo l]Ordered By: Tr Garcia on 12-28-2023 Neutrophils (Bld) [#/Vol] Neutrophils [#/volume] in Blood by Automated count High 1.8-7.7 [facility] Neutrophils [#/volume] in Bl ood by Automated countOrdered By: Tr Garcia on 12-28-2023 Neutrophils (Bld) [#/Vol] 9.1 10*3/uL High 1.8-7.7 [facility] Comment on above: Performed By: #### L IPID, BNP, BMP, CBC #### [facility] [address] [place] [id number] [place] Neutrophils/100 WBC Auto (Bl d)Ordered By: Tr Garcia on 12-28-2023 Neutrophils/100 WBC (Bld) Automated neutrophil % . [facility] No Panel InformationOrdered By: Tr Garcia on 12-28-2023 Estimated GFR (CKD-EPI) > 60.0 mL/Min [facility] Creatinine Clearance (Chem 75.00 [facility] Nucleated erythrocytes [Pres ence] in Blood by Automated countOrdered By: Tr Garcia on 12-28-2023 Nucleated RBC Auto Ql (Bld) 0.0 /100{WBC} 0-0.5 [facility] Nucleated RBC Auto Ql (Bld) Nucleated erythrocytes [Presence] in Blood by Automated count 0-0.5 [facility] Platelet mean volume Auto (B ld) [Entitic vol]Ordered By: Tr Garcia on 12-28-2023 Platelet mean volume (Bld) [Entitic vol] Platelet mean volume [Entitic volume] in Blood by Automated count 6.6-10.1 [facility] Platelet mean volume [Entiti c volume] in Blood by Automated countOrdered By: Tr Garcia on 12-28-2023 Platelet mean volume (Bld) [Entitic vol] 7.8 fL Normal 6.6-10.1 [facility] Comment on above: Performed By: #### L IPID, BNP, BMP, CBC #### [facility] [address] [place] [address] Platelets Auto (Bld) [#/Vol] Ordered By: Tr Garcia on 12-28-2023 Platelets (Bld) [#/Vol] Platelets [#/vol ume] in Blood by Automated count 150-450 [facility] Platelets [#/volume] in Bloo d by Automated countOrdered By: Tr Garcia on 12-28-2023 Platelets (Bld) [#/Vol] 320 10*3/uL Normal 150-450 [facility] Comment on above: Performed By: #### L IPID, BNP, BMP, CBC #### [facility] [address] [place] [address] [place] Potassium [Moles/volume] in Serum or PlasmaOrdered By: Tr Garcia on 12-28-2023 Potassium [Moles/Vol] 4.6 mmol/L Normal 3.5-5.1 [facility] Comment on above: Performed By: #### L IPID, BNP, BMP, CBC #### [facility] [address] [place] [address] [place] Potassium [Moles/Vol] Potassium [Moles/v olume] in Serum or Plasma 3.5-5.1 [facility] RBC Auto (Bld) [#/Vol]Ordere d By: Tr Garcia on 12-28-2023 RBC (Bld) [#/Vol] Erythrocytes [#/volu me] in Blood by Automated count 3.90-5.60 [facility] Serum or plasma anion gap de terminationOrdered By: Tr Garcia on 12-28-2023 Anion gap [Moles/Vol] 13.8 mmol/L Normal 6.0-15.0 [facility] Comment on above: Performed By: #### L IPID, BNP, BMP, CBC #### [address] Anion gap [Moles/Vol] Serum or plasma an ion gap determination 6.0-15.0 [facility] Serum or plasma high density lipoprotein (HDL) cholesterol measurementOrdered By: Otoniel Greer on 12-28-2023 Cholesterol in HDL [Mass/Vol] 31 mg/dL Normal 23-92 [facility] Comment on above: HDL CHOL ATP-III CLA SSIFICATION Cardiovascular RiskHDL > or equal to 60 mg/dL LOWHDL < 40 mg/dL HIGH Result Comment: HDL CHOL ATP-III CLASSIFICATION Cardiovascular Risk HDL > or equal to 60 mg/dL LOW HDL < 40 mg/dL HIGH Performed By: #### L IPID, BNP, BMP, CBC #### [facility] [address] [place] [address] Serum or plasma total choles terol/high density lipoprotein (HDL) cholesterol mass ratOrdered By: Otoniel Greer on 12-28-2023 Cholesterol.total/Fabiana sterol in HDL [Mass ratio] 4.1 {ratio} Normal <5.0 [facility] Comment on above: Result Comment: PERF ORMED BY: [place] [address] PATHOLOGIST FACILITIES MAINTENANCE ASSISTANT CHANCE ALMARAZ M.D. Performed By: #### L IPID, BNP, BMP, CBC #### [address] [place] [address] [place] Cholesterol.total/Fabiana sterol in HDL [Mass ratio] Serum or plasma total cholesterol/high density lipoprotein (HDL) cholesterol mass rat <5.0 [facility] Sodium [Moles/volume] in Ser um or PlasmaOrdered By: Tr Garcia on 12-28-2023 Sodium [Moles/Vol] 137 mmol/L Normal 136-145 [facility] Comment on above: Performed By: #### L IPID, BNP, BMP, CBC #### [facility] [address] [place] [id number] [facility] Sodium [Moles/Vol] Sodium [Moles/volume ] in Serum or Plasma 136-145 [facility] Triglyceride [Mass/volume] i n Serum or PlasmaOrdered By: Otoniel Greer on 12-28-2023 Triglyceride [Mass/Vol] 262 mg/dL High 0-149 [facility] Comment on above: TRIG ATP III CLASSIF ICATIONTRIG less than 150 mg/dL NormalTRIG 150-199 mg/dL Borderline highTRIG 200-500 mg/dL High TRIG greater than 500 mg/dL Very highStandard traceable to the Center for Disease Conrtrol and Prevention (CDC) test method. Triglyceride [Mass/Vol] Triglyceride [Ma ss/volume] in Serum or Plasma High 0-149 [facility] Comment on above: TRIG ATP III CLASSIF ICATIONTRIG less than 150 mg/dL NormalTRIG 150-199 mg/dL Borderline highTRIG 200-500 mg/dL High TRIG greater than 500 mg/dL Very highStandard traceable to the Center for Disease Conrtrol and Prevention (CDC) test method. Troponin I High Sensitivityo n 12-28-2023 Troponin I High Sensitivity 1513.9 pg/mL Off scale high 0.0-20.0 [facility] Comment on above: Result Comment: Resu lts called at 1410 on 12/28/23 --- 12/28/23 1410 --- Trop HS previously reported as: 1513.9 *H pg/mL PERFORMED BY: [facility] [address] [place], [place] [id number] PATHOLOGIST FACILITIES MAINTENANCE ASSISTANT CHANCE ALMARAZ M.D. Performed By: #### H S TROP #### [address] Troponin I High Sensitivity 1776.4 pg/mL Off scale high 0.0-20.0 [facility] Comment on above: Order Comment: TROP 1631 WOULD BE CANCEL BY TAHMINA CABEZAS Result Comment: Crit ical Result : Called to and read back by: SAYDA STILES at: 12/28/2023 02:01:58 by:[id number] PERFORMED BY: [place] [address] PATHOLOGIST FACILITIES MAINTENANCE ASSISTANT CHANCE ALMARAZ M.D. Performed By: #### L IPID, BNP, BMP, CBC #### [address] Troponin I.cardiac [Mass/vol ume] in Serum or Plasma by Detection limit <= 0.01 ng/Ordered By: Otoniel Greer on 12-28-2023 Troponin I.cardiac DL <= 0.01 ng/mL [Mass/Vol] 1513.9 pg/mL High 0.0-20.0 [facility] Comment on above: Results calledat 141 0 on 12/28/23 --- 12/28/23 1410 ---Trop HS previously reported as: 1513.9 *H pg/mL Troponin I.cardiac DL <= 0.01 ng/mL [Mass/Vol] Troponin I.cardiac [Mass/volume] in Serum or Plasma by Detection limit <= 0.01 ng/ Critically high 0.0-20.0 [facility] Comment on above: Results calledat 141 0 on 12/28/23 --- 12/28/23 1410 ---Trop HS previously reported as: 1513.9 *H pg/mL Urea nitrogen [Mass/volume] in Serum or PlasmaOrdered By: Tr Garcia on 12-28-2023 Urea nitrogen [Mass/Vol] 11 mg/dL Normal 7-25 [facility] Comment on above: Performed By: #### L IPID, BNP, BMP, CBC #### [place] [id number] [place] Urea nitrogen [Mass/Vol] Urea nitrogen [Mass/volume] in Serum or Plasma 10-04 [facility] WBC Auto (Bld) [#/Vol]Ordere d By: Tr Garcia on 12-28-2023 WBC (Bld) [#/Vol] Leukocytes [#/volume ] in Blood by Automated count High 4.1-10.5 [facility] Anti-Xa UF Heparinon 024 Anti-Xa UF Heparin 0.24 Low 0.30-0.70 [facility] Comment on above: Result Comment: Use the aPTT protocol when triglycerides are > 800 mg/dL, total bilirubin is > 20 mg/dL and/or patient has received a DOAC, Fondaparinux or LMWH within 72 hours AND baseline anti-Xa level is > 0.7 units/mL PERFORMED BY: [place] [address] PATHOLOGIST FACILITIES MAINTENANCE ASSISTANT CHANCE ALMARAZ M.D. Performed By: #### L IPID, BNP, BMP, CBC #### [address] Anti-Xa UF Heparin 0.20 Low 0.30-0.70 [facility] Comment on above: Result Comment: Use the aPTT protocol when triglycerides are > 800 mg/dL, total bilirubin is > 20 mg/dL and/or patient has received a DOAC, Fondaparinux or LMWH within 72 hours AND baseline anti-Xa level is > 0.7 units/mL PERFORMED BY: [place] [address] PATHOLOGIST FACILITIES MAINTENANCE ASSISTANT CHANCE ALMARAZ M.D. Performed By: #### L IPID, BNP, BMP, CBC #### [facility] [address] [place], [place] [id number] [facility] B-Type Natriuretic Peptideon 12-27-2023 Natriuretic peptide B (Bld) [Mass/Vol] 60.0 pg/mL Normal 5-100 [facility] Comment on above: Result Comment: PERF ORMED BY: [place] [address] PATHOLOGIST FACILITIES MAINTENANCE ASSISTANT CHANCE ALMARAZ M.D. Performed By: #### L IPID, BNP, BMP, CBC #### [facility] [address] Basic Metabolic Panelon 12-11 Anion gap [Moles/Vol] 9.4 mmol/L Normal 6.0-15.0 [facility] Comment on above: Order Comment: FASTI NG Y Performed By: #### L IPID, BNP, BMP, CBC #### [facility] [address] Calcium [Mass/Vol] 9.2 mg/dL Normal 8.6-10.3 [facility] Comment on above: Order Comment: FASTI NG Y Performed By: #### L IPID, BNP, BMP, CBC #### [address] Chloride [Moles/Vol] 103 mmol/L Normal 98-107 [facility] Comment on above: Order Comment: FASTI NG Y Performed By: #### L IPID, BNP, BMP, CBC #### [address] CO2 [Moles/Vol] 29.7 mmol/L Normal 21.0-31.0 [facility] Comment on above: Order Comment: FASTI NG Y Performed By: #### L IPID, BNP, BMP, CBC #### [address] Creatinine [Mass/Vol] 0.95 mg/dL Normal 0.70-1.30 [facility] Comment on above: Order Comment: FASTI NG Y Performed By: #### L IPID, BNP, BMP, CBC #### [facility] [address] [place] [address] [place] Creatinine Clr Calc Pharmacy 78.32 Normal [facility] Comment on above: Order Comment: FASTI NG Y Performed By: #### L IPID, BNP, BMP, CBC #### [place] [address] [place] GFR/1.73 sq M.predicted MDRD (S/P/Bld) [Vol rate/Area] mL/min/{1.73_m2} Normal [facility] Comment on above: Order Comment: FASTI NG Y Performed By: #### L IPID, BNP, BMP, CBC #### [address] Glucose [Mass/Vol] 156 mg/dL High 70-100 [facility] Comment on above: Order Comment: FASTI NG Y Result Comment: [facility] Glucose Reference Range is dependent on time and content of last meal. Glucose of more than 200 mg/dL in a nonstressed, ambulatory subject supports the diagnosis of Diabetes Mellitus. ADA recommended reference range Performed By: #### L IPID, BNP, BMP, CBC #### [address] Potassium [Moles/Vol] 4.1 mmol/L Normal 3.5-5.1 [facility] Comment on above: Order Comment: FASTI NG Y Performed By: #### L IPID, BNP, BMP, CBC #### [address] Sodium [Moles/Vol] 138 mmol/L Normal 136-145 [facility] Comment on above: Order Comment: FASTI NG Y Performed By: #### L IPID, BNP, BMP, CBC #### [address] Urea nitrogen [Mass/Vol] 11 mg/dL Normal 7-25 [facility] Comment on above: Order Comment: FASTI NG Y Performed By: #### L IPID, BNP, BMP, CBC #### [address] Complete Blood Count Auto Di ffon 12-27-2023 Basophils (Bld) [#/Vol] 0.0 10*3/uL Normal 0.0-0.2 [facility] Comment on above: Result Comment: PERF ORMED BY: [place] [address] PATHOLOGIST FACILITIES MAINTENANCE ASSISTANT CHANCE ALMARAZ M.D. Performed By: #### U FHEP #### [address] [address] [place] Basophils/100 WBC (Bld) 0.4 % Normal . [facility] Comment on above: Performed By: #### U FHEP #### [address] Eosinophils (Bld) [#/Vol] 0.2 10*3/uL Normal 0.0-0.45 [facility] Comment on above: Performed By: #### U FHEP #### [address] Eosinophils/100 WBC (Bld) 2.1 % Normal . [facility] Comment on above: Performed By: #### U FHEP #### [address] Erythrocyte distribution width (RBC) [Ratio] 12.5 % Normal 12.0-14.8 [facility] Comment on above: Performed By: #### U FHEP #### [address] Hematocrit (Bld) [Volume fraction] 40.7 % Normal 38.8-50.0 [facility] Comment on above: Performed By: #### U FHEP #### [address] Hemoglobin (Bld) [Mass/Vol] 14.3 g/dL Normal 13.0-17.0 [facility] Comment on above: Performed By: #### U FHEP #### [address] Lymphocytes (Bld) [#/Vol] 2.9 10*3/uL Normal 1.00-4.8 [facility] Comment on above: Performed By: #### U FHEP #### [address] Lymphocytes/100 WBC (Bld) 33.4 % Normal . [facility] Comment on above: Performed By: #### U FHEP #### [address] MCH (RBC) [Entitic mass] 30.8 pg Normal 27.5-35.2 [facility] Comment on above: Performed By: #### U FHEP #### [address] MCV (RBC) [Entitic vol] 87.6 fL Normal 83.5-101 [facility] Comment on above: Performed By: #### U FHEP #### [address] Mean Corpuscular HGB Conc 35.2 g/dL Normal 32.5-35.6 [facility] Comment on above: Performed By: #### U FHEP #### [address] Monocytes (Bld) [#/Vol] 0.5 10*3/uL Normal 0.0-0.8 [facility] Comment on above: Performed By: #### U FHEP #### [address] Monocytes/100 WBC (Bld) 5.3 % Normal . [facility] Comment on above: Performed By: #### U FHEP #### [address] Neutrophils (Bld) [#/Vol] 5.1 10*3/uL Normal 1.8-7.7 [facility] Comment on above: Performed By: #### U FHEP #### [address] Neutrophils/100 WBC (Bld) 58.8 % Normal . [facility] Comment on above: Performed By: #### U FHEP #### [address] NRBC% 0.0 /100{WBC} Normal 0-0.5 [facility] Comment on above: Performed By: #### U FHEP #### [address] Platelet mean volume (Bld) [Entitic vol] 7.3 fL Normal 6.6-10.1 [facility] Comment on above: Performed By: #### U FHEP #### [facility] [address] [place] [address] [place] Platelets (Bld) [#/Vol] 298 10*3/uL Normal 150-450 [facility] Comment on above: Performed By: #### U FHEP #### [facility] [address] [place] [address] [place] RBC (Bld) [#/Vol] 4.65 10*6/uL Normal 3.90-5.60 [facility] Comment on above: Performed By: #### U FHEP #### [facility] [address] WBC (Bld) [#/Vol] 8.6 10*3/uL Normal 4.1-10.5 [facility] Comment on above: Performed By: #### U FHEP #### [address] Creatine kinase [Enzymatic a ctivity/volume] in Serum or PlasmaOrdered By: Tr Garcia on 12-27-2023 CK [Catalytic activity/Vol] 66 U/L Normal 30-223 [facility] Comment on above: Performed By: #### L IPID, BNP, BMP, CBC #### [address] CK [Catalytic activity/Vol] Creatine kinase [Enzymatic activity/volume] in Serum or Plasma 30 [facility] Creatine kinase.MB [Mass/vol ume] in Serum or PlasmaOrdered By: Tr Garcia on 12-27-2023 CK.MB [Mass/Vol] 3.9 ng/mL Normal 0.6-6.3 [facility] Comment on above: Performed By: #### L IPID, BNP, BMP, CBC #### [address] CK.MB [Mass/Vol] Creatine kinase.MB [Mass/volume] in Serum or Plasma 0.6-6.3 [facility] Creatinine Kinase MBon 12-26 CKMB Relative Index 5.9 % High 0.00-2.50 [facility] Comment on above: Performed By: #### L IPID, BNP, BMP, CBC #### [address] ECG 12 lead ECGon 12-27-2023 ECG 12 lead ECG [facility] [place] [address] Electrocardiograph Report Signed Patient: Jesse Garrison MR#: [id number] : 1950 Acct:[id number] Age/Sex: 73 / M ADM Date: 12/26/23 Loc: 4P Room: [address] [place] [address] Type: DIS IN Attending Dr: Olga Bailon MD Ordering Provider: Otoniel Greer, Date of Service: 12/27/23 ECG/ECG 12 lead ECG: Post Angioplasty Procedure Copies to: Test Reason : Blood Pressure : */* mmHG Vent. Rate : 59 BPM Atrial Rate : 59 BPM P-R Int : 160 ms QRS Dur : 140 ms QT Int : 442 ms P-R-T Axes : 60 -67 -42 degrees QTcB Int : 437 ms Sinus bradycardia Right bundle branch block Abnormal ECG Confirmed by MARCIE BLAKE MERGED WITH [facility], SAMY ([id number]) on 12/28/2023 4:23:20 PM Referred By: Electronically Signed By: SAMY RUST MD MERGED WITH [facility] Transcribed By: MUS Signed By Samy Rust MD, FACC 12/28/23 1623 Normal [facility] ECG 12 lead ECG [facility] [place] [address] Electrocardiograph Report Signed Patient: Jesse Garrison MR#: [id number] : 1950 Acct:[id number] Age/Sex: 73 / M ADM Date: 12/26/23 Loc: 4 Room: [address] [place] [address] Type: DIS IN Attending Dr: Olga Bailon MD Ordering Provider: Tr Garcia DO Date of Service: 12/27/23 ECG/ECG 12 lead ECG: chest pain Copies to: Test Reason : Blood Pressure : */* mmHG Vent. Rate : 58 BPM Atrial Rate : 58 BPM P-R Int : 146 ms QRS Dur : 142 ms QT Int : 454 ms P-R-T Axes : 41 -55 -63 degrees QTcB Int : 445 ms Sinus bradycardia Right bundle branch block Left anterior fascicular block Bifascicular block T wave abnormality, consider lateral ischemia Abnormal ECG When compared with ECG of 26-Dec-2023 20:41, (Unconfirmed) T wave inversion now evident in Inferior leads Inverted T waves have replaced nonspecific T wave abnormality in Lateral leads Confirmed by MARCIE BLAKE MERGED WITH [facility], SAMY ([id number]) on 12/28/2023 4:23:04 PM Referred By: Electronically Signed By: SAMY RUST MD [facility] Transcribed By: MUS Signed By Samy Rust MD, MER[facility]ED WITH [facility] 12/28/23 1623 Normal [facility] Glucose Poct Glucometerson 1 Glucose [Mass/Vol] 226 mg/dL Normal [facility] Comment on above: Result Comment: [facility] Glucose Reference Range is dependent on time and content of last meal. Glucose of more than 200 mg/dL in a nonstressed, ambulatory subject supports the diagnosis of Diabetes Mellitus. PERFORMED BY: [place] [address] PATHOLOGIST FACILITIES MAINTENANCE ASSISTANT CHANCE ALMARAZ M.D. Performed By: #### U [facility] #### [address] Glucose [Mass/Vol] 121 mg/dL Normal [facility] Comment on above: Result Comment: [facility] Glucose Reference Range is dependent on time and content of last meal. Glucose of more than 200 mg/dL in a nonstressed, ambulatory subject supports the diagnosis of Diabetes Mellitus. PERFORMED BY: [place] [address] PATHOLOGIST FACILITIES MAINTENANCE ASSISTANT CHANCE ALMARAZ M.D. Performed By: #### G LULS #### Point of Care testing , Glucose [Mass/Vol] 156 mg/dL Normal [facility] Comment on above: Result Comment: [facility] Glucose Reference Range is dependent on time and content of last meal. Glucose of more than 200 mg/dL in a nonstressed, ambulatory subject supports the diagnosis of Diabetes Mellitus. PERFORMED BY: [place] [address] PATHOLOGIST FACILITIES MAINTENANCE ASSISTANT CHANCE ALMARAZ M.D. Performed By: #### U FHEP #### [address] Glucose [Mass/Vol] 163 mg/dL Normal [facility] Comment on above: Result Comment: [facility] Glucose Reference Range is dependent on time and content of last meal. Glucose of more than 200 mg/dL in a nonstressed, ambulatory subject supports the diagnosis of Diabetes Mellitus. PERFORMED BY: [place] [address] PATHOLOGIST FACILITIES MAINTENANCE ASSISTANT CHANCE ALMARAZ M.D. Performed By: #### U FHEP #### [address] Heparin anti-Xa unfractionat edOrdered By: Tr Garcia on 12-27-2023 Heparin unfractionated Chromogenic method Qn (PPP) 0.24 [IU]/mL Low 0.30-0.70 [facility] Comment on above: Use the aPTT protoco l when triglycerides are > 800 mg/dL,total bilirubin is > 20 mg/dL and/or patient has received aDOAC, Fondaparinux or LMWH within 72 hours AND baselineanti-Xa level is > 0.7 units/mL Heparin unfractionated Chromogenic method Qn (PPP) Heparin anti-Xa unfractionated Low 0.30-0.70 [facility] Comment on above: Use the aPTT protoco l when triglycerides are > 800 mg/dL,total bilirubin is > 20 mg/dL and/or patient has received aDOAC, Fondaparinux or LMWH within 72 hours AND baselineanti-Xa level is > 0.7 units/mL Lipid Panelon 12-27-2023 Cholesterol [Mass/Vol] 126 mg/dL Low 140-200 [facility] Comment on above: Order Comment: FASTI NG Y Result Comment: Chol less than 200 mg/dl low risk Chol 201-239 mg/dl borderline risk Chol 240 mg/dl and greater high risk Performed By: #### L IPID, BNP, BMP, CBC #### [address] Cholesterol in HDL [Mass/Vol] 29 mg/dL Normal 23-92 [facility] Comment on above: Order Comment: FASTI NG Y Result Comment: HDL CHOL ATP-III CLASSIFICATION Cardiovascular Risk HDL > or equal to 60 mg/dL LOW HDL < 40 mg/dL HIGH Performed By: #### L IPID, BNP, BMP, CBC #### [address] Cholesterol.total/Fabiana sterol in HDL [Mass ratio] 4.3 {ratio} Normal <5.0 [facility] Comment on above: Order Comment: FASTI NG Y Result Comment: PERF ORMED BY: [place] [address] PATHOLOGIST FACILITIES MAINTENANCE ASSISTANT CHANCE ALMARAZ M.D. Performed By: #### L IPID, BNP, BMP, CBC #### [address] LDL Cholesterol,Calculated 37 mg/dL Normal 0-100 [facility] Comment on above: Order Comment: FASTI NG Y Result Comment: LDL ATP III CLASSIFICATION LDL less than 100 mg/dL Optimal LDL 100-129 mg/dL Near or above optimal LDL 130-159 mg/dL Borderline high LDL 160-189 mg/dL High LDL greater than 189 mg/dL Very high Performed By: #### L IPID, BNP, BMP, CBC #### [address] Triglyceride w/Reflex 301 mg/dL High 0-149 [facility] Comment on above: Order Comment: FASTI NG Y Result Comment: TRIG ATP III CLASSIFICATION TRIG less than 150 mg/dL Normal TRIG 150-199 mg/dL Borderline high TRIG 200-500 mg/dL High TRIG greater than 500 mg/dL Very high Standard traceable to the Center for Disease Conrtrol and Prevention (CDC) test method. Performed By: #### L IPID, BNP, BMP, CBC #### [address] [place] [address] [place] VLDL CHOLESTEROL 60 mg/dL Normal [facility] Comment on above: Order Comment: FASTI NG Y Performed By: #### L IPID, BNP, BMP, CBC #### [address] Magnesium [Mass/volume] in S mp or PlasmaOrdered By: Yamilex Verma on 12-27-2023 Magnesium [Mass/Vol] 2.1 mg/dL Normal 1.9-2.7 [facility] Comment on above: Order Comment: FASTI NG Y Performed By: #### L IPID, BNP, BMP, CBC #### [facility] [address] [place] [address] Magnesium [Mass/Vol] Magnesium [Mass/vol ume] in Serum or Plasma 1.9-2.7 [facility] Serum or plasma creatine kin ase MB (CKMB)/total creatine kinase (CK) ratio by calculaOrdered By: Tr Garcia on 12-27-2023 CK.MB Calc [Catalytic fraction] 5.9 % High 0.00-2.50 [facility] CK.MB Calc [Catalytic fraction] Serum or plasma creatine kinase MB (CKMB)/total creatine kinase (CK) ratio by calcula High 0.00-2.50 [facility] Troponin I High Sensitivityo n 12-27-2023 Troponin I High Sensitivity 2228.0 pg/mL Off scale high 0.0-20.0 [facility] Comment on above: Result Comment: Crit ical Result : Called to and read back by: SAYDA STILES at: 12/28/2023 00:02:28 by:[id number] PERFORMED BY: [place] [address] PATHOLOGIST FACILITIES MAINTENANCE ASSISTANT CHANCE ALMARAZ M.D. Performed By: #### H S TROP #### [address] Troponin I High Sensitivity 2375.1 pg/mL Off scale high 0.0-20.0 [facility] Comment on above: Order Comment: Q2H Result Comment: Crit ical Result : Called to and read back by: SAYDA STILES at: 12/27/2023 21:47:21 by:[id number] PERFORMED BY: [place] [address] PATHOLOGIST FACILITIES MAINTENANCE ASSISTANT CHANCE ALMARAZ M.D. Performed By: #### H S TROP #### [facility] [address] [place] [address] [place] Troponin I High Sensitivity 2208.9 pg/mL Off scale high 0.0-20.0 [facility] Comment on above: Order Comment: TROP 1631 WOULD BE CANCEL BY TAHMINA PA Result Comment: Crit ical Result : Called to and read back by: SAYDA STILES at: 12/27/2023 20:39:10 by:[id number] PERFORMED BY: [place] [address] PATHOLOGIST FACILITIES MAINTENANCE ASSISTANT CHANCE ALMARAZ M.D. Performed By: #### L IPID, BNP, BMP, CBC #### [address] Troponin I High Sensitivity 1150.4 pg/mL Off scale high 0.0-20.0 [facility] Comment on above: Result Comment: Crit ical Result : Called to and read back by: EMMIE GREEN at: 12/27/2023 07:00:34 by:DICK PERFORMED BY: [place] [address] PATHOLOGIST FACILITIES MAINTENANCE ASSISTANT CHANCE ALMARAZ M.D. Performed By: #### L IPID, BNP, BMP, CBC #### [place] [id number] [place] A1C with Estimated Average [facility] 12-26-2023 Glucose [Mass/Vol] 192 mg/dL Normal [facility] Comment on above: Result Comment: PERF ORMED BY: [place] [address] PATHOLOGIST FACILITIES MAINTENANCE ASSISTANT CHANCE ALMARAZ M.D. Performed By: #### L IPID, BNP, BMP, CBC #### [address] [place] [address] [place] Activated partial thrombopla stin time (aPTT) in platelet poor plasma by coagulation aOrdered By: Tr Garcia on 12-26-2023 aPTT Coag (PPP) [Time] 32.0 s 25.1-36.5 [facility] Comment on above: A hematocrit value g reater than 55% may lead to inaccurate results in coagulation testing. Patients having hematocrit values >55% require a special collection tube for coagulation studies. Please contact the laboratory at [phone] for redraw instructions. Alanine aminotransferase [En zymatic activity/volume] in Serum or PlasmaOrdered By: Tr Garcia on 12-26-2023 ALT [Catalytic activity/Vol] 16 U/L Normal [facility] Comment on above: Performed By: #### L IPID, BNP, BMP, CBC #### [facility] [address] [place], [place] [id number] [facility] ALT [Catalytic activity/Vol] Alanine aminotransferase [Enzymatic activity/volume] in Serum or Plasma [facility] Albumin [Mass/volume] in Ser um or Plasma by Bromocresol green (BCG) dye binding methoOrdered By: Tr Garcia on 12-26-2023 Albumin BCG dye [Mass/Vol] 4.3 g/dL 3.5-5.7 [facility] Albumin BCG dye [Mass/Vol] Albumin [Mass/volume] in Serum or Plasma by Bromocresol green (BCG) dye binding metho 3.5-5.7 [facility] Alkaline phosphatase [Enzyma tic activity/volume] in Serum or PlasmaOrdered By: Tr Garcia on 12-26-2023 ALP [Catalytic activity/Vol] 80 U/L Normal [facility] Comment on above: Performed By: #### L IPID, BNP, BMP, CBC #### [facility] [address] [place] [id number] [facility] ALP [Catalytic activity/Vol] Alkaline phosphatase [Enzymatic activity/volume] in Serum or Plasma [facility] Anti-Xa UF Heparinon 024 Anti-Xa UF Heparin 0.05 Low 0.30-0.70 [facility] Comment on above: Result Comment: Use the aPTT protocol when triglycerides are > 800 mg/dL, total bilirubin is > 20 mg/dL and/or patient has received a DOAC, Fondaparinux or LMWH within 72 hours AND baseline anti-Xa level is > 0.7 units/mL PERFORMED BY: [place] [address] PATHOLOGIST FACILITIES MAINTENANCE ASSISTANT CHANCE ALMARAZ M.D. Performed By: #### U [facility] #### [address] Aspartate aminotransferase [ Enzymatic activity/volume] in Serum or PlasmaOrdered By: Tr Garcia on 12-26-2023 AST [Catalytic activity/Vol] 22 U/L Normal [facility] Comment on above: Performed By: #### L IPID, BNP, BMP, CBC #### [address] AST [Catalytic activity/Vol] Aspartate aminotransferase [Enzymatic activity/volume] in Serum or Plasma [facility] B-Type Natriuretic Peptideon 12-26-2023 Natriuretic peptide B (Bld) [Mass/Vol] 84.0 pg/mL Normal 5-100 [facility] Comment on above: Result Comment: PERF ORMED BY: [place] [address] PATHOLOGIST FACILITIES MAINTENANCE ASSISTANT CHANCE ALMARAZ M.D. Performed By: #### L IPID, BNP, BMP, CBC #### [place] [address] [place] Basic Metabolic Panelon 12-11 Anion gap [Moles/Vol] 11.4 mmol/L Normal 6.0-15.0 [facility] Comment on above: Performed By: #### L IPID, BNP, BMP, CBC #### [place] [id number] [place] Calcium [Mass/Vol] 9.3 mg/dL Normal 8.6-10.3 [facility] Comment on above: Performed By: #### L IPID, BNP, BMP, CBC #### [facility] [address] [place] [address] [place] Chloride [Moles/Vol] 103 mmol/L Normal 98-107 [facility] Comment on above: Performed By: #### L IPID, BNP, BMP, CBC #### [facility] [address] [place] [address] [place] CO2 [Moles/Vol] 30.3 mmol/L Normal 21.0-31.0 [facility] Comment on above: Performed By: #### L IPID, BNP, BMP, CBC #### [facility] [address] Creatinine [Mass/Vol] 0.92 mg/dL Normal 0.70-1.30 [facility] Comment on above: Performed By: #### L IPID, BNP, BMP, CBC #### [facility] [address] [place] [address] [place] Creatinine Clr Calc Pharmacy 80.87 Normal [facility] Comment on above: Performed By: #### L IPID, BNP, BMP, CBC #### [facility] [address] [place] [address] [place] GFR/1.73 sq M.predicted MDRD (S/P/Bld) [Vol rate/Area] mL/min/{1.73_m2} Normal [facility] Comment on above: Performed By: #### L IPID, BNP, BMP, CBC #### [address] Glucose [Mass/Vol] 130 mg/dL High 70-100 [facility] Comment on above: Result Comment: [place] Glucose Reference Range is dependent on time and content of last meal. Glucose of more than 200 mg/dL in a nonstressed, ambulatory subject supports the diagnosis of Diabetes Mellitus. ADA recommended reference range Performed By: #### L IPID, BNP, BMP, CBC #### [facility] [address] [place] [address] [place] Potassium [Moles/Vol] 4.7 mmol/L Normal 3.5-5.1 [facility] Comment on above: Performed By: #### L IPID, BNP, BMP, CBC #### [facility] [address] Sodium [Moles/Vol] 140 mmol/L Normal 136-145 [facility] Comment on above: Performed By: #### L IPID, BNP, BMP, CBC #### [facility] [address] [place] [address] [place] Urea nitrogen [Mass/Vol] 10 mg/dL Normal 7-25 [facility] Comment on above: Performed By: #### L IPID, BNP, BMP, CBC #### [facility] [address] [place] [address] [place] Basophils Auto (Bld) [#/Vol] on 12-26-2023 Basophils (Bld) [#/Vol] 0.0 10 3/uL 0.0-0.1 [facility] Basophils (Bld) [#/Vol] Automated basophil count 0.0-0.1 [facility] Basophils/100 WBC Auto (Bld) on 12-26-2023 Basophils/100 WBC (Bld) 0.3 % 0.2-2.0 [facility] Basophils/100 WBC (Bld) Automated basophil % 0. 2-2.0 [facility] Bilirubin.direct [Mass/volum e] in Serum or PlasmaOrdered By: Tr Garcia on 12-26-2023 Bilirubin.direct [Mass/Vol] 0.10 mg/dL 0.03-0.18 [facility] Bilirubin.direct [Mass/Vol] Bilirubin.direct [Mass/volume] in Serum or Plasma 0.03-0.18 [facility] Bilirubin.total [Mass/volume ] in Serum or PlasmaOrdered By: Tr Garcia on 12-26-2023 Bilirubin [Mass/Vol] 0.4 mg/dL Normal 0.3-1.0 [facility] Comment on above: Performed By: #### L IPID, BNP, BMP, CBC #### [facility] [address] Bilirubin [Mass/Vol] Bilirubin.total [Mass/volume] in Serum or Plasma 0.3-1.0 [facility] Blood estimated average gluc ose determination by estimation from glycated hemoglobinOrdered By: Tr Garcia on 12-26-2023 Average glucose Estimated from glycated hemoglobin (Bld) [Mass/Vol] Glucose mean value [Mass/volume] in Blood Estimated from glycated hemoglobin [facility] Complete Blood Count Auto Di ffon 12-26-2023 Basophils (Bld) [#/Vol] 0.0 10*3/uL Normal 0.0-0.2 [facility] Comment on above: Result Comment: PERF ORMED BY: [place] [address] PATHOLOGIST FACILITIES MAINTENANCE ASSISTANT CHANCE ALMARAZ M.D. Performed By: #### L IPID, BNP, BMP, CBC #### [facility] [address] [place] [address] Basophils/100 WBC (Bld) 0.5 % Normal . [facility] Comment on above: Performed By: #### L IPID, BNP, BMP, CBC #### [facility] [address] [place] [address] [place] Eosinophils (Bld) [#/Vol] 0.2 10*3/uL Normal 0.0-0.45 [facility] Comment on above: Performed By: #### L IPID, BNP, BMP, CBC #### [facility] [address] [place] [address] Eosinophils/100 WBC (Bld) 2.0 % Normal . [facility] Comment on above: Performed By: #### L IPID, BNP, BMP, CBC #### [facility] [address] [place] [address] [place] Erythrocyte distribution width (RBC) [Ratio] 12.6 % Normal 12.0-14.8 [facility] Comment on above: Performed By: #### L IPID, BNP, BMP, CBC #### [facility] [address] [place] [address] Hematocrit (Bld) [Volume fraction] 43.8 % Normal 38.8-50.0 [facility] Comment on above: Performed By: #### L IPID, BNP, BMP, CBC #### [address] Hemoglobin (Bld) [Mass/Vol] 15.3 g/dL Normal 13.0-17.0 [facility] Comment on above: Performed By: #### L IPID, BNP, BMP, CBC #### [address] Lymphocytes (Bld) [#/Vol] 2.8 10*3/uL Normal 1.00-4.8 [facility] Comment on above: Performed By: #### L IPID, BNP, BMP, CBC #### [address] Lymphocytes/100 WBC (Bld) 27.5 % Normal . [facility] Comment on above: Performed By: #### L IPID, BNP, BMP, CBC #### [address] MCH (RBC) [Entitic mass] 30.8 pg Normal 27.5-35.2 [facility] Comment on above: Performed By: #### L IPID, BNP, BMP, CBC #### [address] MCV (RBC) [Entitic vol] 88.3 fL Normal 83.5-101 [facility] Comment on above: Performed By: #### L IPID, BNP, BMP, CBC #### [address] Mean Corpuscular HGB Conc 34.9 g/dL Normal 32.5-35.6 [facility] Comment on above: Performed By: #### L IPID, BNP, BMP, CBC #### [address] Monocytes (Bld) [#/Vol] 0.5 10*3/uL Normal 0.0-0.8 [facility] Comment on above: Performed By: #### L IPID, BNP, BMP, CBC #### [place] [address] [place] Monocytes/100 WBC (Bld) 4.6 % Normal . [facility] Comment on above: Performed By: #### L IPID, BNP, BMP, CBC #### [place] [address] [place] Neutrophils (Bld) [#/Vol] 6.6 10*3/uL Normal 1.8-7.7 [facility] Comment on above: Performed By: #### L IPID, BNP, BMP, CBC #### [place] [address] [place] Neutrophils/100 WBC (Bld) 65.4 % Normal . [facility] Comment on above: Performed By: #### L IPID, BNP, BMP, CBC #### [address] NRBC% 0.1 /100{WBC} Normal 0-0.5 [facility] Comment on above: Performed By: #### L IPID, BNP, BMP, CBC #### [place] [address] [place] Platelet mean volume (Bld) [Entitic vol] 7.5 fL Normal 6.6-10.1 [facility] Comment on above: Performed By: #### L IPID, BNP, BMP, CBC #### [place] [address] [place] Platelets (Bld) [#/Vol] 304 10*3/uL Normal 150-450 [facility] Comment on above: Performed By: #### L IPID, BNP, BMP, CBC #### [place] [address] [place] RBC (Bld) [#/Vol] 4.96 10*6/uL Normal 3.90-5.60 [facility] Comment on above: Performed By: #### L IPID, BNP, BMP, CBC #### [place] [address] [place] WBC (Bld) [#/Vol] 10.1 10*3/uL Normal 4.1-10.5 [facility] Comment on above: Performed By: #### L IPID, BNP, BMP, CBC #### [address] Creatine Kinaseon 12-26-2023 CK [Catalytic activity/Vol] 83 U/L Normal 30-223 [facility] Comment on above: Performed By: #### L IPID, BNP, BMP, CBC #### [address] Creatinine Kinase MBon 12-25 CK.MB [Mass/Vol] 5.2 ng/mL Normal 0.6-6.3 [facility] Comment on above: Performed By: #### L IPID, BNP, BMP, CBC #### [address] CKMB Relative Index 6.2 % High 0.00-2.50 [facility] Comment on above: Result Comment: PERF ORMED BY: [place] [address] PATHOLOGIST FACILITIES MAINTENANCE ASSISTANT CHANCE ALMARAZ M.D. Performed By: #### L IPID, BNP, BMP, CBC #### [address] ECG 12 lead ECGon 12-26-2023 ECG 12 lead ECG [facility] [place] [address] Electrocardiograph Report Signed Patient: Jesse Garrison MR#: [id number] : 1950 Acct:[id number] Age/Sex: 73 / M ADM Date: 12/26/23 Loc: Room: [address] [place] [address] Type: DIS IN Attending Dr: Olga Bailon MD Ordering Provider: Tr Garcia DO Date of Service: 12/26/23 ECG/ECG 12 lead ECG: chest pain Copies to: Test Reason : Blood Pressure : */* mmHG Vent. Rate : 60 BPM Atrial Rate : 60 BPM P-R Int : 140 ms QRS Dur : 132 ms QT Int : 436 ms P-R-T Axes : 48 -47 51 degrees QTcB Int : 436 ms Normal sinus rhythm Right bundle branch block Abnormal ECG When compared with ECG of 05-Nov-2013 16:26, Right bundle branch block is new Confirmed by MARCIE BLAKE MERGED WITH [facility], SAMY ([id number]) on 12/28/2023 4:22:19 PM Referred By: Electronically Signed By: SAMY RUST MD [facility] Transcribed By: MUS Signed By Samy Rust MD, MERG[facility] WITH [facility] 12/28/23 1622 Normal [facility] Eosinophils/100 WBC Auto (Bl d)on 12-26-2023 Eosinophils/100 WBC (Bld) 2.1 % 0.9-7.0 [facility] Eosinophils/100 WBC (Bld) Automated eosinophil % 0.9-7.0 [facility] Erythrocyte distribution wid th Auto (RBC) [Ratio]on 12-26-2023 Erythrocyte distribution width (RBC) [Ratio] 11.9 % 11.0-15.0 [facility] Erythrocyte distribution width (RBC) [Ratio] Erythrocyte distribution width [Ratio] by Automated count 11.0-15.0 [facility] Estimated glomerular filtrat ion rate (GFR) non- Americanon 12-26-2023 GFR/1.73 sq M.predicted among non-blacks MDRD (S/P/Bld) [Vol rate/Area] mL/min/{1.73_m2} >=60 mL/min/1.7 3m 2 [facility] GFR/1.73 sq M.predicted among non-blacks MDRD (S/P/Bld) [Vol rate/Area] Estimated glomerular filtration rate (GFR) non- >=60 mL/min/1.7 3m 2 [facility] Globulin Calc (S) [Mass/Vol] Ordered By: Tr Garcia on 12-26-2023 Globulin (S) [Mass/Vol] Serum globulin m easurement by calculation (mass/volume) [facility] Globulin Calc (S) [Mass/Vol] on 12-26-2023 Globulin (S) [Mass/Vol] 3.2 g/dL [facility] Globulin (S) [Mass/Vol] Serum globulin m easurement by calculation (mass/volume) [facility] Glucose Poct Glucometerson 1 Glucose [Mass/Vol] 133 mg/dL Normal [facility] Comment on above: Result Comment: [facility] Glucose Reference Range is dependent on time and content of last meal. Glucose of more than 200 mg/dL in a nonstressed, ambulatory subject supports the diagnosis of Diabetes Mellitus. PERFORMED BY: [place] [address] PATHOLOGIST FACILITIES MAINTENANCE ASSISTANT CHANCE ALMARAZ M.D. Performed By: #### L IPID, BNP, BMP, CBC #### [facility] [address] [place] [address] Glucose mean value [Mass/vol ume] in Blood Estimated from glycated hemoglobinOrdered By: Tr Garcia on 12-26-2023 Average glucose Estimated from glycated hemoglobin (Bld) [Mass/Vol] 192 mg/dL [facility] Hematocrit Auto (Bld) [Volum e fraction]on 12-26-2023 Hematocrit (Bld) [Volume fraction] 43.8 % 42.0-54.0 [facility] Hematocrit (Bld) [Volume fraction] Hematocrit [Volume Fraction] of Blood by Automated count 42.0-54.0 [facility] Hemoglobin A1c percentageOrd ered By: Tr Garcia on 12-26-2023 HbA1c (Bld) [Mass fraction] 8.3 % High 4.3-5.6 [facility] Comment on above: Increased risk for d iabetes: 5.7 - 6.4diabetes: >6.4glycemic control for adults with diabetes: <7.0 Result Comment: Incr eased risk for diabetes: 5.7 - 6.4 diabetes: >6.4 glycemic control for adults with diabetes: <7.0 Performed By: #### L IPID, BNP, BMP, CBC #### [facility] [address] Hemoglobin A1c/Hemoglobin.to rachele in BloodOrdered By: Tr Garcia on 12-26-2023 HbA1c (Bld) [Mass fraction] Hemoglobin A1c percentage High 4.3-5.6 [facility] Comment on above: Increased risk for d iabetes: 5.7 - 6.4diabetes: >6.4glycemic control for adults with diabetes: <7.0 Hemoglobin [Mass/volume] in Bloodon 12-26-2023 Hemoglobin (Bld) [Mass/Vol] 15.2 g/dL 14.0-18.0 [facility] Hemoglobin (Bld) [Mass/Vol] Hemoglobin [Mass/volume] in Blood 14.0-18.0 [facility] Hepatic Panelon 12-26-2023 Albumin [Mass/Vol] 4.3 g/dL Normal 3.5-5.7 [facility] Comment on above: Performed By: #### L IPID, BNP, BMP, CBC #### [facility] [address] Bilirubin,Indirect 0.3 mg/dL Normal [facility] Comment on above: Performed By: #### L IPID, BNP, BMP, CBC #### [facility] [address] [place] [address] [place] Bilirubin.indirect [Mass/Vol] 0.10 mg/dL Normal 0.03-0.18 [facility] Comment on above: Performed By: #### L IPID, BNP, BMP, CBC #### [facility] [address] [place] [address] [place] INR in Platelet poor plasma by Coagulation assayOrdered By: Tr Garcia on 12-26-2023 INR Coag (PPP) [Relative time] 1.0 {INR} Normal [facility] Comment on above: INR Therapeutic Rang e A) Pre- and Peroperative OAT started two weeks before surgery. NOT HIP SURGERY: 1.5 - 2.5 HIP SURGERY: 2 - 3B) Primary and secondary prevention of venous THROMBOSIS: 2 - 3C) Active venous thrombosis, pulmonary embolismand prevention of recurrent venous thrombosis: 2 - 3D) Prevention of arterial thromboembolismincluding patients with mechanical heart valves: 3 - 4.5 Result Comment: INR Therapeutic Range A) Pre- and Peroperative OAT started two weeks before surgery. NOT HIP SURGERY: 1.5 - 2.5 HIP SURGERY: 2 - 3 B) Primary and secondary prevention of venous THROMBOSIS: 2 - 3 C) Active venous thrombosis, pulmonary embolism and prevention of recurrent venous thrombosis: 2 - 3 D) Prevention of arterial thromboembolism including patients with mechanical heart valves: 3 - 4.5 Performed By: #### L IPID, BNP, BMP, CBC #### [facility] [address] INR Coag (PPP) [Relative time] INR in Platelet poor plasma by Coagulation assay [facility] Comment on above: INR Therapeutic Rang e A) Pre- and Peroperative OAT started two weeks before surgery. NOT HIP SURGERY: 1.5 - 2.5 HIP SURGERY: 2 - 3B) Primary and secondary prevention of venous THROMBOSIS: 2 - 3C) Active venous thrombosis, pulmonary embolismand prevention of recurrent venous thrombosis: 2 - 3D) Prevention of arterial thromboembolismincluding patients with mechanical heart valves: 3 - 4.5 INR in Platelet poor plasma by Coagulation assayon 12-26-2023 INR Coag (PPP) [Relative time] 0.97 {INR} [facility] Comment on above: DESIRED INR:2.0-3.0 CONDITIONS NOT LISTED BELOW2.5-3.5 FOR PROSTHETIC HEART VALVE REPLACEMENT2.5-3.5 RECURRENT THROMBOSIS INR Coag (PPP) [Relative time] INR in Platelet poor plasma by Coagulation assay [facility] Comment on above: DESIRED INR:2.0-3.0 CONDITIONS NOT LISTED BELOW2.5-3.5 FOR PROSTHETIC HEART VALVE REPLACEMENT2.5-3.5 RECURRENT THROMBOSIS Laboratory - Chemistry and C hemistry - challengeon 12-26-2023 Albumin [Mass/Vol] 3.8 g/dL 3.4-5.0 [facility] ALP [Catalytic activity/Vol] 105 U/L 46-116 [facility] ALT [Catalytic activity/Vol] 24 U/L 16-63 [facility] AST [Catalytic activity/Vol] 21 U/L 15-37 [facility] Bilirubin [Mass/Vol] 0.4 mg/dL 0.2-1.0 [facility] Calcium [Mass/Vol] 9.3 mg/dL 8.5-10.1 [facility] Chloride [Moles/Vol] 103 mmol/L 98-107 [facility] CO2 [Moles/Vol] 31.1 mmol/L 21.0-32.0 [facility] Creatinine [Mass/Vol] 1.06 mg/dL 0.70-1.30 [facility] GFR/1.73 sq M.predicted MDRD (S/P/Bld) [Vol rate/Area] mL/min/{1.73_m2} >=60 mL/min/1.7 3m 2 [facility] Glucose [Mass/Vol] 179 mg/dL High 74-106 [facility] Natriuretic peptide B (Bld) [Mass/Vol] 511.0 pg/mL <=900.0 [facility] Potassium [Moles/Vol] 4.0 mmol/L 3.5-5.1 [facility] Protein [Mass/Vol] 7.0 g/dL 6.4-8.2 [facility] Sodium [Moles/Vol] 140 mmol/L 136-145 [facility] Urea nitrogen [Mass/Vol] 9.0 mg/dL 7.0-18.0 [facility] Urea nitrogen/Creatinine [Mass ratio] 8.5 mg/mg [facility] Laboratory - Hematology and Cell countson 12-26-2023 Immature granulocytes/100 WBC (Bld) 0.2 % 0.0-0.5 [facility] Leukocytes [#/volume] correc adriel for nucleated erythrocytes in Blood by Automated counon 12-26-2023 WBC corrected for nucl RBC Auto (Bld) [#/Vol] 11.4 10 3/uL [facility] 4.0-11.0 [facility] WBC corrected for nucl RBC Auto (Bld) [#/Vol] Leukocytes [#/volume] corrected for nucleated erythrocytes in Blood by Automated coun [facility] 4.0-11.0 [facility] Lymphocytes Auto (Bld) [#/Vo l]on 12-26-2023 Lymphocytes (Bld) [#/Vol] 3.3 10 3/uL 1.2-3.8 [facility] Lymphocytes (Bld) [#/Vol] Lymphocytes [#/volume] in Blood by Automated count 1.2-3.8 [facility] Lymphocytes/100 WBC Auto (Bl d)on 12-26-2023 Lymphocytes/100 WBC (Bld) 29.2 % 20.5-60.0 [facility] Lymphocytes/100 WBC (Bld) Lymphocytes/100 leukocytes in Blood by Automated count 20.5-60.0 [facility] MCH Auto (RBC) [Entitic mass ]on 12-26-2023 MCH (RBC) [Entitic mass] 30.7 pg 25.9-34.0 [facility] MCH (RBC) [Entitic mass] MCH [Entitic mass] by Automated count 25.9-34.0 [facility] MCHC Auto (RBC) [Mass/Vol]on 12-26-2023 MCHC (RBC) [Mass/Vol] 34.7 g/dL 29.9-35.2 [facility] MCHC (RBC) [Mass/Vol] MCHC [Mass/volume] by Automated count 29.9-35.2 [facility] MCV Auto (RBC) [Entitic vol] on 12-26-2023 MCV (RBC) [Entitic vol] 88.5 fL 80.0-94.0 [facility] MCV (RBC) [Entitic vol] MCV [Entitic vol ume] by Automated count 80.0-94.0 [facility] Monocytes Auto (Bld) [#/Vol] on 12-26-2023 Monocytes (Bld) [#/Vol] 0.5 10 3/uL 0.3-0.8 [facility] Monocytes (Bld) [#/Vol] Automated blood monocyte count 0.3-0.8 [facility] Monocytes/100 WBC Auto (Bld) on 12-26-2023 Monocytes/100 WBC (Bld) 4.7 % 1.7-12.0 [facility] Monocytes/100 WBC (Bld) Automated monocyte % 1. 7-12.0 [facility] Neutrophils Auto (Bld) [#/Vo l]on 12-26-2023 Neutrophils (Bld) [#/Vol] 7.2 10 3/uL High 1.4-6.5 [facility] Neutrophils (Bld) [#/Vol] Neutrophils [#/volume] in Blood by Automated count High 1.4-6.5 [facility] Neutrophils/100 WBC Auto (Bl d)on 12-26-2023 Neutrophils/100 WBC (Bld) 63.5 % 43.0-75.0 [facility] Neutrophils/100 WBC (Bld) Automated neutrophil % 43.0-75.0 [facility] No Panel Informationon 12-25 Troponin I High Sensitivity 1535.7 pg/mL Critically high 4.0-76.1 [facility] Comment on above: RESULTS CALLED TO JACINTA MARTE/TAHMINA IN ERCUT-OFF POINTS HAVE BEEN ESTABLISHED BASED ON THE FOURTHUNIVERSAL DEFINITION OF MYOCARDIAL INFARCTION. THE UPPERREFERENCE LIMIT (URL) OF TROPONIN, DEFINED THE 99THPERCENTILE OF cTnI DISTRIBUTION IN A REFERENCE POPULATION,HAS BEEN CONFIRMED THE DECISION THRESHOLD FOR MIDIAGNOSIS.99TH PERCENTILE = 76.2 PG/MLNOTE: HIGH-SENSITIVITY TROPONIN ASSAY IS NOT INTENDED TO BEUSED IN ISOLATION BUT SHOULD BE INTERPRETED IN CONJUNCTIONWITH OTHER DIAGNOSTIC AND CLINICAL INFORMATION. Eosinophils # (Auto) 0.2 10 3/uL 0.0-0.7 [facility] Immature Granulocyte # (Auto) 0.02 10 3/uL 0.00-0.03 [facility] Partial Thromboplastin Timeo n 12-26-2023 aPTT Coag (Bld) [Time] 32.0 s Normal 25.1-36.5 [facility] Comment on above: Result Comment: A he matocrit value greater than 55% may lead to inaccurate results in coagulation testing. Patients having hematocrit values >55% require a special collection tube for coagulation studies. Please contact the laboratory at [phone] for redraw instructions. PERFORMED BY: [facility] [address] [place] [address] PATHOLOGIST FACILITIES MAINTENANCE ASSISTANT CHANCE ALMARAZ M.D. Performed By: #### L IPID, BNP, BMP, CBC #### [address] [address] [facility] Phosphate [Mass/volume] in S mp or PlasmaOrdered By: Tr Garcia on 12-26-2023 Phosphate [Mass/Vol] 3.5 mg/dL Normal 2.5-4.5 [facility] Comment on above: Result Comment: PERF ORMED BY: [place] [address] PATHOLOGIST FACILITIES MAINTENANCE ASSISTANT CHANCE ALMARAZ M.D. Performed By: #### L IPID, BNP, BMP, CBC #### [facility] [address] [place] [address] [facility] Phosphate [Mass/Vol] Phosphate [Mass/vol ume] in Serum or Plasma 2.5-4.5 [facility] Platelet mean volume Auto (B ld) [Entitic vol]on 12-26-2023 Platelet mean volume (Bld) [Entitic vol] 9.3 fL Low 9.5-13.5 [facility] Platelet mean volume (Bld) [Entitic vol] Platelet mean volume [Entitic volume] in Blood by Automated count Low 9.5-13.5 [facility] Platelets Auto (Bld) [#/Vol] on 12-26-2023 Platelets (Bld) [#/Vol] 317 10 3/uL 150-450 [facility] Platelets (Bld) [#/Vol] Platelets [#/vol ume] in Blood by Automated count 150-450 [facility] Protein [Mass/volume] in Ser um or PlasmaOrdered By: Tr Garcia on 12-26-2023 Protein [Mass/Vol] 6.8 g/dL Normal 6.4-8.9 [facility] Comment on above: Performed By: #### L IPID, BNP, BMP, CBC #### [facility] [address] [place] [id number] [facility] Protein [Mass/Vol] Protein [Mass/volume ] in Serum or Plasma 6.4-8.9 [facility] Prothrombin time (PT)Ordered By: Tr Garcia on 12-26-2023 PT Coag (PPP) [Time] 11.1 s Normal 9.0-12.9 [facility] Comment on above: A hematocrit value g reater than 55% may lead to inaccurate results in coagulation testing. Patients having hematocrit values >55% require a special collection tube for coagulation studies. Please contact the laboratory at [phone] for redraw instructions. Result Comment: A he matocrit value greater than 55% may lead to inaccurate results in coagulation testing. Patients having hematocrit values >55% require a special collection tube for coagulation studies. Please contact the laboratory at [phone] for redraw instructions. Performed By: #### L IPID, BNP, BMP, CBC #### [facility] [address] [place] [address] PT Coag (PPP) [Time] Prothrombin time (PT) 9.0- 12.9 [facility] Comment on above: A hematocrit value g reater than 55% may lead to inaccurate results in coagulation testing. Patients having hematocrit values >55% require a special collection tube for coagulation studies. Please contact the laboratory at [phone] for redraw instructions. Prothrombin time (PT)on 12-11 PT Coag (PPP) [Time] 10.3 s 9.0-11.6 [facility] PT Coag (PPP) [Time] Prothrombin time (PT) 9.0- 11.6 [facility] RBC Auto (Bld) [#/Vol]on RBC (Bld) [#/Vol] 4.95 10 6/uL 4.70-6.10 [facility] RBC (Bld) [#/Vol] Erythrocytes [#/volu me] in Blood by Automated count 4.70-6.10 [facility] Serum globulin measurement b y calculation (mass/volume)Ordered By: Tr Garcia on 12-26-2023 Globulin (S) [Mass/Vol] 2.5 g/dL Normal [facility] Comment on above: Performed By: #### L IPID, BNP, BMP, CBC #### [facility] [address] [place] [address] Serum or plasma albumin/glob ulin mass ratioOrdered By: Tr Garcia on 12-26-2023 Albumin/Globulin [Mass ratio] 1.7 {ratio} Normal [facility] Comment on above: Performed By: #### L IPID, BNP, BMP, CBC #### [facility] [address] [id number] [facility] Albumin/Globulin [Mass ratio] Serum or plasma albumin/globulin mass ratio [facility] Serum or plasma albumin/glob ulin mass ratioon 12-26-2023 Albumin/Globulin [Mass ratio] 1.2 {ratio} [facility] Albumin/Globulin [Mass ratio] Serum or plasma albumin/globulin mass ratio [facility] Serum or plasma anion gap de terminationon 12-26-2023 Anion gap [Moles/Vol] 9.9 mmol/L [facility] Anion gap [Moles/Vol] Serum or plasma an ion gap determination [facility] Serum or plasma non-glucuron idated bilirubin measurement (mass/volume)Ordered By: Tr Garcia on 12-26-2023 Bilirubin.indirect [Mass/Vol] 0.3 mg/dL [facility] Bilirubin.indirect [Mass/Vol] Serum or plasma non-glucuronidated bilirubin measurement (mass/volume) [facility] Troponin I High Sensitivityo n 12-26-2023 Troponin I High Sensitivity 980.7 pg/mL Off scale high 0.0-20.0 [facility] Comment on above: Result Comment: Crit ical Result : Called to and read back by: EMMIE GREEN at: 12/27/2023 00:08:37 by:DICK PERFORMED BY: [place] [address] PATHOLOGIST FACILITIES MAINTENANCE ASSISTANT CHANCE ALMARAZ M.D. Performed By: #### L IPID, BNP, BMP, CBC #### [facility] [address] [place], [place] [id number] [facility] Troponin I High Sensitivity 1138.6 pg/mL Off scale high 0.0-20.0 [facility] Comment on above: Result Comment: Crit ical Result : Called to and read back by: EMMIE GREEN at: 12/26/2023 22:41:33 by:DICK PERFORMED BY: [place] [address] PATHOLOGIST FACILITIES MAINTENANCE ASSISTANT CHANCE ALMARAZ M.D. Performed By: #### L IPID, BNP, BMP, CBC #### [facility] [address] [id number] [facility] aPTT in Platelet poor plasma by Coagulation assayOrdered By: Tr Garcia on 12-26-2023 aPTT Coag (PPP) [Time] Activated partial thromboplastin time (aPTT) in platelet poor plasma by coagulation a 25.1-36.5 [facility] Comment on above: A hematocrit value g reater than 55% may lead to inaccurate results in coagulation testing. Patients having hematocrit values >55% require a special collection tube for coagulation studies. Please contact the laboratory at [phone] for redraw instructions. [facility]ion Fish and Urine Cyt o ([facility])on 11-27-2023 [facility] Diagnosis Info Invalid Interpretation Code [facility] Comment on above: Result Comment: A:Ur [...] on: 11/27/2023 11:23:08 Performed By: #### 1 [id number] #### [facility] [address] [place] [address] Ambulatory Visit Summaryon 0 11-15-2023 Ambulatory Visit Summary Ambulatory Visit Summary JESSE GARRISON :1950 Visit Date:11/15/2023 Ambulatory Visit Instructions Your Diagnosis Hx of bladder cancer Lesion of bladder Elevated PSA Enlarged prostate with urinary obstruction Your Care Team Attending Physician - MACI BLAKE, Patito Garcia Primary Care Physician - ANTONI COHN [...] Renteria When: Where: [facility] [address] , [place] [address]- Medications What How Much When Instructions Unchanged [...] this test, (more content not included)... Normal [facility] Reminderson 11-15-2023 Reminders Reminders From: Sammie Padilla To: VEENA Molina; Sent: 11/15/2023 07:59:38 EDT Show up: 09/10/2024 07:59:00 EDT Subject: cysto/fish/cytol Due Date/Time: 10/07/2024 07:59:00 EDT Reminder/Recall Patient is due in Nov 2024 for 1 year cysto/fish/cytol, bt ck (psa) Normal [facility] UroVysion Fish and Urine Cyt o ([facility])on 11-15-2023 [facility] Method of Extraction Voided Normal [facility] Comment on above: Performed By: #### 1 [id number] #### [facility] [address] [place] [address] [facility] Number of Jars 1 Invalid Interpretation Code [facility] Comment on above: Performed By: #### 1 [id number] #### [facility] [address] [place] [address] [facility] Specimen Urine Normal [facility] Comment on above: Performed By: #### 1 [id number] #### [facility] [address] [place] [address] [facility] Type of Service Technical Only Normal [facility] Comment on above: Performed By: #### 1 [id number] #### [facility] [address] [place] [address] Urology Office/Clinic Noteon 11-15-2023 Urology Office/Clinic Note [...] Follow-up With When Contact Information MACI BLAKE, Patito Garcia, URL [facility] [address], [place] [address]- Additional Instructions: 1 yr cysto and PSA [...] Cystoscopy ( (more content not included)... Normal [facility] Comment on above: Result Comment: Elec tronically Signed By: Patito MOLINA MD\.br\Date and Time Signed: 11/15/23 08:00 EDT\.br\Electronically Co-Signed By: Irma Vance\.br\Date and Time Co-Signed: 11/15/23 07:58 EDT No Panel Informationon 11-07 Prostate Specific Antigen Total 2.59 ng/mL <=4.00 [facility] Glucose mean value [Mass/vol ume] in Blood Estimated from glycated hemoglobinon 10-19-2023 Average glucose Estimated from glycated hemoglobin (Bld) [Mass/Vol] 148 mg/dL [facility] Laboratory - Hematology and Cell countson 10-19-2023 HbA1c (Bld) [Mass fraction] 6.8 % High 4.5-6.2 [facility] Comment on above: ADA RECOMMENDED LIMI T 4.0 - 6.0ADA THERAPEUTIC TARGET < 7.0ACTION SUGGESTED> 7.0 [facility] Fish [facility] U[facility] Cyt [facility] ([facility])on 06-07-2023 [facility] Diagnosis Info Invalid Interpretation Code [facility] Comment on above: Result Comment: A:Ur [...] correlated with cytology and cystoscopy results.* CPT 76422, 11386. Microscopic Notes - Microscopic Notes - Abnormal cells 9p21 deletions: Abnormal cells aneploid events: Total cells analyzed: 100 Hematuria: Gross Description Site ID:A color Yellow fixative Alcohol Received 100 mls of clear yellow fluid with the patient's name and, Bladder Wash on the vial. Electronically signed by : on: 06/07/2023 11:05:10 Performed By: #### 1 [id number] #### [facility] [address] [place] [address] Consent for Procedure/Surger yon 06-01-2023 Consent for Procedure/Surgery [id number]#[id number] Normal [facility] Lab Reportson 06-01-2023 Lab Reports [id number]#[id number] Normal [facility] Ambulatory Visit Summaryon 0 05-31-2023 Ambulatory Visit Summary JESSE GARRISON :1950 Visit Date:05/31/2023 Ambulatory Visit Instructions Your Diagnosis Hx of bladder cancer Lesion of bladder Elevated PSA Enlarged prostate with urinary obstruction Your Care Team Attending Physician - MACI BLAKE, Patito Garcia Primary Care Physician - ANTONI COHN DO This Is Your Medications List Contact prescribing physician if questions or concerns acetaminophen-hydrocodone ([place] 325 mg-5 mg oral tablet) ciprofloxacin (Cipro [...] Where: [facility] [address], [place] [address]- Medications What How Much When Why Instructions Unchanged acetaminophen-hydrocodone ([place] 325 mg-5 mg oral tablet) 1 Tablets [...] flexible tube (more content not included)... Normal [facility] Patient Educationon 05-31-19 Patient Education Oncology [...] if anything looks unusual. Men with a sbepnt-qtyb-qcaxgh risk for skin cancer may want to see a hospital cleaning specialist (group leader wafer polishing) for an annual body check. What are the benefits of screening? Cancer screening is done to look for cancer in the very early stages, before it spreads and becomes harder to treat and before you would start to notice symptoms. Finding cancer early improves the chances of successful treatment. It ma (more content not included)... Normal [facility] UroVysion Fish and Urine Cyt o ([facility])on 05-31-2023 [facility] Method of Extraction Bladder Wash Normal [facility] Comment on above: Performed By: #### 1 [id number] #### [facility] [address] [place] [address] [facility] Number of Jars 1 Invalid Interpretation Code [facility] Comment on above: Performed By: #### 1 [id number] #### [facility] [address] [place] [address] [facility] Specimen Bladder Wash Normal [facility] Comment on above: Performed By: #### 1 [id number] #### [facility] [address] [place] [address] [facility] Type of Service Technical Only Normal [facility] Comment on above: Performed By: #### 1 [id number] #### [facility] [address] [place] [address] Urology Office/Clinic Noteon 05-31-2023 Urology Office/Clinic Note [...] Follow-up With When Contact Information MACI BLAKE, Patito Garcia, URL [facility] [address], [place] [address]- Additional Instructions: 6 mos cysto, PSA FT Patient Education Cancer Screening for Men IIrma, personally scribed for Dr. Molina on 05/31/2023 [...] (02/15/2018), Cysto (more content not included)... Normal [facility] Comment on above: Result Comment: Elec tronically Signed By: Patito MOLINA MD\.br\Date and Time Signed: 05/31/23 08:00 EDT\.br\Electronically Co-Signed By: Irma Vance\.br\Date and Time Co-Signed: 05/31/23 07:58 EDT GLYCOHEMOGLOBIN A1Con 2021 ADA RECOMMENDATION SEE BELOW Normal [facility] Comment on above: Result Comment: ADA RECOMMENDED LIMIT 4.0 - 6.0 ADA THERAPEUTIC TARGET < 7.0 ACTION SUGGESTED > 7.0 Performed By: #### A 1C #### [facility] [address] [place] [address] Dr. Gil Smith Glucose [Mass/Vol] 137 mg/dL Normal [facility] Comment on above: Performed By: #### A 1C #### [facility] [address] [address] [address] Gil Smith HbA1c (Bld) [Mass fraction] 6.4 % Critically high 4.5-6.2 [facility] Comment on above: Performed By: #### A 1C #### [facility] [address] [place] [address] Dr. Gil Smith MICROALBUMIN, RAND URon 12- mALB <1.3 Normal <=30.0 [facility] Comment on above: Performed By: #### B MP #### [facility] [address] ABD/PELVIS WO CONon [...] HALLEY RAMIRES Date: 2021-11-13 22:56 Normal [facility] CULTURE URINEon 11-14-2021 CULTURE URINE Culture Observations : NO GROWTH. Normal [facility] Comment on above: Performed By: #### B MP #### [facility] [address] [place] [address] Dr. Gil Smith ER URINE PROFILEon 2 Bilirubin Ql (U) MODERATE Abnormal NEGATIVE [facility] Comment on above: Performed By: #### A 1C #### [facility] [address] [place] [address] Dr. Gil Smith Clarity (U) CLEAR Normal CLEAR [facility] Comment on above: Performed By: #### A 1C #### [facility] [address] [place] [address] Dr. Gil Smith Color (U) RED Abnormal YELLOW [facility] Comment on above: Performed By: #### A 1C #### [facility] [address] [place] [address] Dr. Gil Simth ERUAHD A micrscopic examina tion will be performed if indicated. Normal [facility] Comment on above: Performed By: #### A 1C #### [facility] [address] [place] [address] Dr. Gil Smith Glucose Ql (U) Negative Normal NEGATIVE [facility] Comment on above: Performed By: #### A 1C #### [facility] [address] [place] [address] Dr. Gil Smith Hemoglobin Ql (U) LARGE Abnormal NEGATIVE [facility] Comment on above: Performed By: #### A 1C #### [facility] [address] [place] [address] Dr. Gil Smith Ketones Ql (U) 40 mg/dl Abnormal NEGATIVE [facility] Comment on above: Performed By: #### A 1C #### [facility] [address] [place] [address] Dr. Gil Smith LEUKOCYTES MODERATE Abnormal NEGATIVE [facility] Comment on above: Performed By: #### A 1C #### [facility] [address] [place] [address] Dr. Gil Smith Nitrite Ql (U) Positive Abnormal NEGATIVE [facility] Comment on above: Performed By: #### A 1C #### [facility] [address] [place] [address] Dr. Gil Smith pH (U) 8.5 [pH] Normal 5-9 [facility] Comment on above: Performed By: #### A 1C #### [facility] [address] [place] [address] Dr. Gil Smith Protein (U) [Mass/Vol] 100 mg/dL Abnormal NEGAT JO/ TRACE [facility] Comment on above: Performed By: #### A 1C #### [facility] [address] [place] [address] Dr. Gil Smith SPEC GRAVITY 1.015 Normal 1.005-<=1. 025 [facility] Comment on above: Performed By: #### A 1C #### [facility] [address] [place] [address] Dr. Gil Smith UR MICRO IND INDICATED Normal [facility] Comment on above: Performed By: #### A 1C #### [facility] [address] [place] [address] Dr. Gil Smith Urobilinogen Qn (U) 2.0 {Ross'U}/dL Abnormal 0.2 - 1. 0 [facility] Comment on above: Performed By: #### A 1C #### [facility] [address] [place] [address] Dr. Gil Smith URINE MICROSCOPIC ONLYon BACTERIA SMALL Abnormal NONE SEEN [facility] Comment on above: Result Comment: Prev iously reported as: MODERATE On 11/13/2021 23:51 By 01 Performed By: #### A 1C #### [facility] [address] [place] [address] Dr. Gil Smith Bacteria identified Cx Nom (U) INDICATED Normal [facility] Comment on above: Performed By: #### A 1C #### [facility] [address] [place] [address] Dr. Gil Smith CAST NONE SEEN Normal NONE SEEN [facility] Comment on above: Performed By: #### A 1C #### [facility] [address] [place] [address] Dr. Gil Smith Crystals LM Nom (Urine sed) NONE SEEN Normal NONE SEEN [facility] Comment on above: Performed By: #### A 1C #### [facility] [address] [place] [address] Dr. Gil Smith Epithelial cells LM Ql (Urine sed) RARE Normal NONE SEEN /RARE [facility] Comment on above: Performed By: #### A 1C #### [facility] [address] [place] [address] Dr. Gil Smith MUCOUS NONE SEEN Normal NONE SEEN [facility] Comment on above: Performed By: #### A 1C #### [facility] [address] [place] [address] Dr. Gil Smith RBC 0-2 Normal 0-2 [facility] Comment on above: Result Comment: Prev iously reported as: >100 On 11/13/2021 23:51 By MH01 Performed By: #### A 1C #### [facility] [address] [place] [address] Dr. Gil Smith WBC 2-5 Abnormal NONE SEEN [facility] Comment on above: Performed By: #### A 1C #### [facility] [address] [place] [address] Dr. Gil Smith CBC AUTO DIFFon 11-13-2021 BASO # 0.0 103/ul Normal 0.0-0.1 [facility] Comment on above: Performed By: #### A 1C #### [facility] [address] [place] [address] Dr. Gil Smith Basophils/100 WBC (Bld) 0.2 % Normal 0.2-2.0 [facility] Comment on above: Performed By: #### A 1C #### [facility] [address] [place] [address] Dr. Gil Smith EO # 0.2 103/ul Normal 0.0-0.7 [facility] Comment on above: Performed By: #### A 1C #### [facility] [address] [place] [address] Dr. Gil Smith Eosinophils/100 WBC (Bld) 1.8 % Normal 0.9-7.0 [facility] Comment on above: Performed By: #### A 1C #### [facility] [address] [place] [address] Dr. Gil Smith Erythrocyte distribution width (RBC) [Ratio] 11.9 % Normal 11.0-15.0 [facility] Comment on above: Performed By: #### A 1C #### [facility] [address] [place] [address] Dr. Gil Smith Hematocrit (Bld) [Volume fraction] 44.5 % Normal 42.0-54.0 [facility] Comment on above: Performed By: #### A 1C #### [facility] [address] [place] [address] Dr. Gil Smith Hemoglobin (Bld) [Mass/Vol] 15.6 g/dL Normal 14.0-18.0 [facility] Comment on above: Performed By: #### A 1C #### [facility] [address] [place] [address] Dr. Gil Smith IG # 0.05 10e3/ul Critically high 0.00-0.03 [facility] Comment on above: Performed By: #### A 1C #### [facility] [address] [place] [address] Dr. Gil Smith IG % 0.4 % Normal 0.0-0.5 [facility] Comment on above: Performed By: #### A 1C #### [facility] [address] [place] [address] Dr. Gil Smith LYMPH # 2.1 103/ul Normal 1.2-3.8 [facility] Comment on above: Performed By: #### A 1C #### [facility] [address] [address] [address] Gil Smith Lymphocytes/100 WBC (Bld) 16.3 % Critically low 20.5-60.0 [facility] Comment on above: Performed By: #### A 1C #### [facility] [address] [place] [address] Dr. Gil Smith MANUAL DIFF REQ NO Normal [facility] Comment on above: Performed By: #### A 1C #### [facility] [address] [place] [address] Dr. Gil Smith MCH (RBC) [Entitic mass] 30.2 pg Normal 25.9-34.0 [facility] Comment on above: Performed By: #### A 1C #### [facility] [address] [place] [address] Dr. Gil Smith MCHC (RBC) [Mass/Vol] 35.1 g/dL Normal 29.9-35.2 [facility] Comment on above: Performed By: #### A 1C #### [facility] [address] [place] [address] Dr. Gil Smith MCV (RBC) [Entitic vol] 86.2 fL Normal 80.0-94.0 [facility] Comment on above: Performed By: #### A 1C #### [facility] [address] [place] [address] Dr. Gil Smith MONO # 0.7 103/ul Normal 0.3-0.8 [facility] Comment on above: Performed By: #### A 1C #### [facility] [address] [place] [address] Dr. Gil Smith Monocytes/100 WBC (Bld) 5.3 % Normal 1.7-12.0 [facility] Comment on above: Performed By: #### A 1C #### [facility] [address] [place] [address] Dr. Gil Smith NEUT # 9.8 103/ul Critically high 1.4-6.5 [facility] Comment on above: Performed By: #### A 1C #### [facility] [address] [address] [address] Gil Smith Neutrophils/100 WBC (Bld) 76.0 % Critically high 43.0-75.0 [facility] Comment on above: Performed By: #### A 1C #### [facility] [address] [place] [address] Dr. Gil Smith Platelet mean volume (Bld) [Entitic vol] 9.4 fL Critically low 9.5-13.5 [facility] Comment on above: Performed By: #### A 1C #### [facility] [address] [address] [address] Gil Smith PLT 334 103/ul Normal 150-450 [facility] Comment on above: Performed By: #### A 1C #### [facility] [address] [place] [address] Dr. Gil Smith RBC 5.16 106/ul Normal 4.70-6.10 [facility] Comment on above: Performed By: #### A 1C #### [facility] [address] [place] [address] Dr. Gil Smith WBC 12.9 103/ul Critically high 4.0-11.0 [facility] Comment on above: Performed By: #### A 1C #### [facility] [address] [place] [address] Dr. Gil Smith PROF CHEM 8 (BAS METB)on Anion gap [Moles/Vol] 10.6 mmol/L Normal [facility] Comment on above: Performed By: #### B MP #### [facility] [address] [place] [address] Dr. Gil Smith Calcium [Mass/Vol] 9.1 mg/dL Normal 8.5-10.1 [facility] Comment on above: Performed By: #### B MP #### [facility] [address] [place] [address] Dr. Gil Smith Chloride [Moles/Vol] 101 mmol/L Normal 98-107 [facility] Comment on above: Performed By: #### B MP #### [facility] [address] [address] [address] Gil Smith CO2 [Moles/Vol] 30.7 mmol/L Normal 21.0-32.0 [facility] Comment on above: Performed By: #### B MP #### [facility] [address] [address] [address] Gil Smith Creatinine [Mass/Vol] 1.14 mg/dL Normal 0.70-1.30 [facility] Comment on above: Performed By: #### B MP #### [facility] [address] [address] [address] Gil Smith EGFR-AF ITALIAN >60 Normal >=60 [facility] Comment on above: Performed By: #### B MP #### [facility] [address] [address] [address] Gil Smith EGFR-NON AF ITALIAN >60 Normal >=60 [facility] Comment on above: Performed By: #### B MP #### [facility] [address] [address] [address] Gil Smith Glucose [Mass/Vol] 181 mg/dL Critically high 74-106 [facility] Comment on above: Performed By: #### B MP #### [facility] [address] [address] [address] Gil Smith Potassium [Moles/Vol] 4.3 mmol/L Normal 3.5-5.1 [facility] Comment on above: Performed By: #### B MP #### [facility] [address] [address] [address] Gil Smith Sodium [Moles/Vol] 138 mmol/L Normal 136-145 [facility] Comment on above: Performed By: #### B MP #### [facility] [address] [address] [address] Gil Smith Urea nitrogen [Mass/Vol] 19.0 mg/dL Critically high 7.0-18.0 [facility] Comment on above: Performed By: #### B MP #### [facility] [address] [address] [address] Gil Smith Urea nitrogen/Creatinine [Mass ratio] 16.7 mg/mg Normal [facility] Comment on above: Performed By: #### B MP #### [facility] [address] [place] [address] Dr. Gil Smith POINT OF CARE GLUCOSEon 09-0 Glucose [Mass/Vol] 115 mg/dL Critically high 74-106 T [facility] Comment on above: Performed By: #### P OCGLUC #### [facility] [address] [place] [address] Dr. Gil Smith [facility]12 SARS-CoV-2 (COVID-19) RNA ITA+probe Ql (Unsp spec) Not detected Normal NOT DETECTED [facility] Comment on above: Result Comment: This test is not yet approved or cleared by the [place] FDA. When there are no FDA-approved or cleared tests available, and other criteria are met, FDA can make tests available under an emergency access mechanism called an Emergency Use Authorization (EUA). The EUA for this test is supported by the [place] of Health and Human Service's (HHS's) declaration [...] SARS-CoV-2. Performed By: #### C VDTBH #### [facility] [address] [place] [address] [address] [address] Gil Smith CBC AUTO DIFFon 11-01-2021 BASO # 0.0 103/ul Normal 0.0-0.1 [facility] Comment on above: Performed By: #### C BC #### [facility] [address] [place] [address] Dr. Gil Smith Basophils/100 WBC (Bld) 0.3 % Normal 0.2-2.0 T [facility] Comment on above: Performed By: #### C BC #### [facility] [address] [place] [address] Dr. Gil Smith EO # 0.3 103/ul Normal 0.0-0.7 [facility] Comment on above: Performed By: #### C BC #### [facility] [address] [place] [address] Dr. Gil Smith Eosinophils/100 WBC (Bld) 2.8 % Normal 0.9-7.0 [facility] Comment on above: Performed By: #### C BC #### [facility] [address] [place] [address] Dr. Gil Smith Erythrocyte distribution width (RBC) [Ratio] 11.9 % Normal 11.0-15.0 [facility] Comment on above: Performed By: #### C BC #### [facility] [address] [place] [address] Dr. Gil Smith Hematocrit (Bld) [Volume fraction] 45.4 % Normal 42.0-54.0 [facility] Comment on above: Performed By: #### C BC #### [facility] [address] [place] [address] Dr. Gil Smith Hemoglobin (Bld) [Mass/Vol] 15.2 g/dL Normal 14.0-18.0 [facility] Comment on above: Performed By: #### C BC #### [facility] [address] [place] [address] Dr. Gil Smith IG # 0.02 10e3/ul Normal 0.00-0.03 [facility] Comment on above: Performed By: #### C BC #### [facility] [address] [place] [address] Dr. Gil Smith IG % 0.2 % Normal 0.0-0.5 [facility] Comment on above: Performed By: #### C BC #### [facility] [address] [place] [address] Dr. Gil Smith LYMPH # 2.3 103/ul Normal 1.2-3.8 [facility] Comment on above: Performed By: #### C BC #### [facility] [address] [place] [address] Dr. Gil Smith Lymphocytes/100 WBC (Bld) 26.1 % Normal 20.5-60.0 [facility] Comment on above: Performed By: #### C BC #### [facility] [address] [place] [address] Dr. Gil Smith MANUAL DIFF REQ NO Normal [facility] Comment on above: Performed By: #### C BC #### [facility] [address] [place] [address] Dr. Gil Smith MCH (RBC) [Entitic mass] 29.7 pg Normal 25.9-34.0 [facility] Comment on above: Performed By: #### C BC #### [facility] [address] [place] [address] Dr. Gil Smith MCHC (RBC) [Mass/Vol] 33.5 g/dL Normal 29.9-35.2 [facility] Comment on above: Performed By: #### C BC #### [facility] [address] [place] [address] Dr. Gil Smith MCV (RBC) [Entitic vol] 88.8 fL Normal 80.0-94.0 [facility] Comment on above: Performed By: #### C BC #### [facility] [address] [place] [address] Dr. Gil Smith MONO # 0.4 103/ul Normal 0.3-0.8 [facility] Comment on above: Performed By: #### C BC #### [facility] [address] [place] [address] Dr. Gil Smith Monocytes/100 WBC (Bld) 4.6 % Normal 1.7-12.0 [facility] Comment on above: Performed By: #### C BC #### [facility] [address] [place] [address] Dr. Gil Smith NEUT # 5.9 103/ul Normal 1.4-6.5 [facility] Comment on above: Performed By: #### C BC #### [facility] [address] [address] [address] Gil Smith Neutrophils/100 WBC (Bld) 66.0 % Normal 43.0-75.0 [facility] Comment on above: Performed By: #### C BC #### [facility] [address] [place] [address] Dr. Gil Smith Platelet mean volume (Bld) [Entitic vol] 9.3 fL Critically low 9.5-13.5 [facility] Comment on above: Performed By: #### C BC #### [facility] [address] [place] [address] Dr. Gil Smith PLT 306 103/ul Normal 150-450 [facility] Comment on above: Performed By: #### C BC #### [facility] [address] [place] [address] Dr. Gil Smith RBC 5.11 106/ul Normal 4.70-6.10 [facility] Comment on above: Performed By: #### C BC #### [facility] [address] [place] [address] Dr. Gil Smith WBC 8.9 103/ul Normal 4.0-11.0 [facility] Comment on above: Performed By: #### C BC #### [facility] [address] [place] [address] Dr. Gil Smith PROF CHEM 8 (BAS METB)on Anion gap [Moles/Vol] 9.5 mmol/L Normal [facility] Comment on above: Performed By: #### B MP #### [facility] [address] [place] [address] Dr. Gil Smith Calcium [Mass/Vol] 9.2 mg/dL Normal 8.5-10.1 [facility] Comment on above: Performed By: #### B MP #### [facility] [address] [place] [address] Dr. Gil Smith Chloride [Moles/Vol] 103 mmol/L Normal 98-107 [facility] Comment on above: Performed By: #### B MP #### [facility] [address] [address] [address] Gil Smith CO2 [Moles/Vol] 30.5 mmol/L Normal 21.0-32.0 [facility] Comment on above: Performed By: #### B MP #### [facility] [address] [place] [address] Dr. Gil Smith Creatinine [Mass/Vol] 1.00 mg/dL Normal 0.70-1.30 [facility] Comment on above: Performed By: #### B MP #### [facility] [address] [place] [address] Dr. Gil Smith EGFR-AF ITALIAN >60 Normal >=60 [facility] Comment on above: Performed By: #### B MP #### [facility] [address] [place] [address] Dr. Gil Smith EGFR-NON AF ITALIAN >60 Normal >=60 [facility] Comment on above: Performed By: #### B MP #### [facility] [address] [place] [address] Dr. Gil Smith Glucose [Mass/Vol] 120 mg/dL Critically high 74-106 T [facility] Comment on above: Performed By: #### B MP #### [facility] [address] [place] [address] Dr. Gil Smith Potassium [Moles/Vol] 5.0 mmol/L Normal 3.5-5.1 [facility] Comment on above: Performed By: #### B MP #### [facility] [address] [place] [address] Dr. Gil Smith Sodium [Moles/Vol] 138 mmol/L Normal 136-145 [facility] Comment on above: Performed By: #### B MP #### [facility] [address] [place] [address] Dr. Gil Smith Urea nitrogen [Mass/Vol] 13.0 mg/dL Normal 7.0-18.0 [facility] Comment on above: Performed By: #### B MP #### [facility] [address] [place] [address] Dr. Gil Smith Urea nitrogen/Creatinine [Mass ratio] 13.0 mg/mg Normal [facility] Comment on above: Performed By: #### B MP #### [facility] [address] [address] [address] Gil Smith PROTIMEon 11-01-2021 INR Coag (PPP) [Relative time] 1.00 {INR} Normal [facility] Comment on above: Performed By: #### B MP #### [facility] [address] [place] [address] Dr. Gil Smith INR GUIDELINES SEE BELOW Normal [facility] Comment on above: Result Comment: CHUCK RED INR: 2.0 - 3.0 CONDITIONS NOT LISTED BELOW 2.5 - 3.5 FOR PROSTHETIC HEART VALVE REPLACEMENT 2.5 - 3.5 RECURRENT THROMBOSIS Performed By: #### B MP #### [facility] [address] [place] [address] Dr. Gil Smith PT Coag (PPP) [Time] 10.8 s Normal 9.0-11.6 [facility] Comment on above: Performed By: #### B MP #### [facility] [address] [place] [address] Dr. Gil Smith PTTon 11-01-2021 aPTT Coag (Bld) [Time] 27.7 s Normal 22.3-36.2 [facility] Comment on above: Performed By: #### P T, PTT #### [facility] [address] [place] [address] Dr. Gil Smith XR CHEST 2 Von [...] by: DANAY ROSADO Date: 2021-11-01 16:55 Normal [facility] GLYCOHEMOGLOBIN A1Con 2021 ADA RECOMMENDATION SEE BELOW Normal [facility] Comment on above: Result Comment: ADA RECOMMENDED LIMIT 4.0 - 6.0 ADA THERAPEUTIC TARGET < 7.0 ACTION SUGGESTED > 7.0 Performed By: #### B MP #### [facility] [address] [place] [address] Dr. Gil Smith Glucose [Mass/Vol] 140 mg/dL Normal [facility] Comment on above: Performed By: #### B MP #### [facility] [address] [place] [address] Dr. Gil Smith HbA1c (Bld) [Mass fraction] 6.5 % Critically high 4.5-6.2 [facility] Comment on above: Performed By: #### B MP #### [facility] [address] [place] [address] Dr. Gil Smith GLYCOHEMOGLOBIN A1Con 2021 ADA RECOMMENDATION ADA THERAPEUTIC TARG ET 6.0 - 7.0 ACTION SUGGESTED > 7.0 Normal [facility] Comment on above: Performed By: #### A 1C #### [facility] [address] [place] [address] Dr. Gil Smith Glucose [Mass/Vol] 137 mg/dL Normal [facility] Comment on above: Performed By: #### A 1C #### [facility] [address] [place] [address] Dr. Gil Smith HbA1c (Bld) [Mass fraction] 6.4 % Critically high <=6.0 [facility] Comment on above: Performed By: #### A 1C #### [facility] [address] [place] [address] Dr. Gil Smith PSA SCREENING LABCORPon 3 Prostate specific Ag [Mass/Vol] 1.5 ng/mL Normal 0.0-4.0 [facility] Comment on above: Result Comment: [employer] COLEMAN methodology. . According to the [place] [employer], Serum PSA should decrease and [...] disease. Performed By: #### P SASCLC #### [facility] [address] [place] [address] Dr. Gil Smith VIT D 25-OH LABCORPon 2020 Vitamin D, 25-Hydroxy 32.9 ng/mL Normal 30.0-100.0 [facility] Comment on above: Result Comment: Kelly min D deficiency has been defined by the [place] of [employer] and an Endocrine Society practice guideline as a level of serum 25-OH vitamin D less than 20 ng/mL (1,2). The Endocrine Society went on to further define vitamin D insufficiency as a level between 21 and 29 ng/mL (2). 1. IOM ([place] [employer]). 2010. Dietary reference intakes for calcium and D. [place]: The National Academies Press. 2. Pedro MF, Rosa Elena [place], Jamison XIONG, et al. Evaluation, treatment, and prevention of vitamin D deficiency: an Endocrine Society clinical practice guideline. JCEM. 2010; 96(7):1911-30. Performed By: #### B MP #### [facility] [address] [place] [address] Dr. Gil Smith CBC AUTO DIFFon 03-10-2021 BASO # 0.0 103/ul Normal 0.0-0.1 [facility] Comment on above: Performed By: #### B MP #### [facility] [address] [place] [address] Dr. Gil Smith Basophils/100 WBC (Bld) 0.5 % Normal 0.2-2.0 [facility] Comment on above: Performed By: #### B MP #### [facility] [address] [place] [address] Dr. Gil Smith EO # 0.3 103/ul Normal 0.0-0.7 [facility] Comment on above: Performed By: #### B MP #### [facility] [address] [place] [address] Dr. Gil Smith Eosinophils/100 WBC (Bld) 3.0 % Normal 0.9-7.0 [facility] Comment on above: Performed By: #### B MP #### [facility] [address] [place] [address] Dr. Gil Smith Erythrocyte distribution width (RBC) [Ratio] 12.1 % Normal 11.0-15.0 [facility] Comment on above: Performed By: #### B MP #### [facility] [address] [place] [address] Dr. Gil Smith Hematocrit (Bld) [Volume fraction] 45.2 % Normal 42.0-54.0 [facility] Comment on above: Performed By: #### B MP #### [facility] [address] [place] [address] Dr. Gil Smith Hemoglobin (Bld) [Mass/Vol] 15.1 g/dL Normal 14.0-18.0 [facility] Comment on above: Performed By: #### B MP #### [facility] [address] [place] [address] Dr. Gil Smith IG # 0.03 10e3/ul Normal 0.00-0.03 [facility] Comment on above: Performed By: #### B MP #### [facility] [address] [place] [address] Dr. Gil Smith IG % 0.4 % Normal 0.0-0.5 [facility] Comment on above: Performed By: #### B MP #### [facility] [address] [place] [address] Dr. Gil Smith LYMPH # 2.7 103/ul Normal 1.2-3.8 [facility] Comment on above: Performed By: #### B MP #### [facility] [address] [place] [address] Dr. Gil Smith Lymphocytes/100 WBC (Bld) 31.9 % Normal 20.5-60.0 [facility] Comment on above: Performed By: #### B MP #### [facility] [address] [place] [address] Dr. Gil Smith MANUAL DIFF REQ NO Normal [facility] Comment on above: Performed By: #### B MP #### [facility] [address] [address] [address] Gil Smith MCH (RBC) [Entitic mass] 29.6 pg Normal 25.9-34.0 [facility] Comment on above: Performed By: #### B MP #### [facility] [address] [place] [address] Dr. Gil Smith MCHC (RBC) [Mass/Vol] 33.4 g/dL Normal 29.9-35.2 [facility] Comment on above: Performed By: #### B MP #### [facility] [address] [place] [address] Dr. Gil Smith MCV (RBC) [Entitic vol] 88.6 fL Normal 80.0-94.0 [facility] Comment on above: Performed By: #### B MP #### [facility] [address] [place] [address] Dr. Gil Smith MONO # 0.4 103/ul Normal 0.3-0.8 [facility] Comment on above: Performed By: #### B MP #### [facility] [address] [place] [address] Dr. Gil Smith Monocytes/100 WBC (Bld) 4.9 % Normal 1.7-12.0 [facility] Comment on above: Performed By: #### B MP #### [facility] [address] [place] [address] Dr. Gil Smith NEUT # 4.9 103/ul Normal 1.4-6.5 [facility] Comment on above: Performed By: #### B MP #### [facility] [address] [place] [address] Dr. Gil Smith Neutrophils/100 WBC (Bld) 59.3 % Normal 43.0-75.0 [facility] Comment on above: Performed By: #### B MP #### [facility] [address] [place] [address] Dr. Gil Smith Platelet mean volume (Bld) [Entitic vol] 9.0 fL Critically low 9.5-13.5 [facility] Comment on above: Performed By: #### B MP #### [facility] [address] [address] [address] Gil Smith PLT 307 103/ul Normal 150-450 [facility] Comment on above: Performed By: #### B MP #### [facility] [address] [address] [address] Gil Smith RBC 5.10 106/ul Normal 4.70-6.10 [facility] Comment on above: Performed By: #### B MP #### [facility] [address] [address] [address] Gil Smith WBC 8.3 103/ul Normal 4.0-11.0 [facility] Comment on above: Performed By: #### B MP #### [facility] [address] [address] [address] Gil Smith GLYCOHEMOGLOBIN A1Con 2020 ADA RECOMMENDATION ADA THERAPEUTIC TARG ET 6.0 - 7.0 ACTION SUGGESTED > 7.0 Normal [facility] Comment on above: Performed By: #### A 1C #### [facility] [address] [address] [address] Gil Smith Glucose [Mass/Vol] 131 mg/dL Normal [facility] Comment on above: Performed By: #### A 1C #### [facility] [address] [place] [address] Dr. Gil Smith HbA1c (Bld) [Mass fraction] 6.2 % Critically high <=6.0 [facility] Comment on above: Performed By: #### A 1C #### [facility] [address] [address] [address] Gil Smith MICROALBUMIN, RAND URon - mALB <1.3 Normal <=30.0 [facility] Comment on above: Performed By: #### B MP #### [facility] [address] [place] [address] Dr. Gil Smith PROF CHEM 8 (BAS METB)on Anion gap [Moles/Vol] 8.6 mmol/L Normal [facility] Comment on above: Performed By: #### B MP #### [facility] [address] [address] [address] Gil Smith Calcium [Mass/Vol] 9.1 mg/dL Normal 8.4-10.2 [facility] Comment on above: Performed By: #### B MP #### [facility] [address] [address] [address] Gil Smith Chloride [Moles/Vol] 103 mmol/L Normal 98-107 [facility] Comment on above: Performed By: #### B MP #### [facility] [address] [address] [address] Gil Smith CO2 [Moles/Vol] 31.5 mmol/L Critically high 22.0-30.0 [facility] Comment on above: Performed By: #### B MP #### [facility] [address] [place] [address] Dr. Gil Smith Creatinine [Mass/Vol] 0.89 mg/dL Normal 0.66-1.25 [facility] Comment on above: Performed By: #### B MP #### [facility] [address] [place] [address] Dr. Gil Smith EGFR-AF ITALIAN >60 Normal >=60 [facility] Comment on above: Performed By: #### B MP #### [facility] [address] [place] [address] Dr. Gil Smith EGFR-NON AF ITALIAN >60 Normal >=60 [facility] Comment on above: Performed By: #### B MP #### [facility] [address] [address] [address] Gil Smith Glucose [Mass/Vol] 117 mg/dL Critically high 74-106 [facility] Comment on above: Performed By: #### B MP #### [facility] [address] [place] [address] Dr. Gil Smith Potassium [Moles/Vol] 4.1 mmol/L Normal 3.4-5.0 [facility] Comment on above: Performed By: #### B MP #### [facility] [address] [place], [place] [address] Dr. Gil Smith Sodium [Moles/Vol] 139 mmol/L Normal 137-145 [facility] Comment on above: Performed By: #### B MP #### [facility] [address] [place], [place] [address] Dr. Gil Smith Urea nitrogen [Mass/Vol] 13.0 mg/dL Normal 9.0-20.0 [facility] Comment on above: Performed By: #### B MP #### [facility] [address] [place], [place] [address] Dr. Gil Smith Urea nitrogen/Creatinine [Mass ratio] 14.6 mg/mg Normal [facility] Comment on above: Performed By: #### B MP #### [facility] [address] [address] [address] Gil Smith Vital Signs Date Time Vital Sign Value Performing Clinician Facility 07-10-2024 09:51-0400 Body height 175.3 cm Ar Greer DO Work Phone: [facility] 07-10-2024 09:51-0400 Body mass index (BMI) [Ratio] 30.63 kg/m2 Ar Greer DO Work Phone: [facility] 07-10-2024 09:51-0400 Body weight 94.08 kg Ar Greer DO Work Phone: [facility] 07-10-2024 09:51-0400 Diastolic blood pressure 60 mm[Hg] Ar Greer DO Work Phone: [facility] 07-10-2024 09:51-0400 Heart rate 76 /min Ar Greer DO Work Phone: [facility] 07-10-2024 09:51-0400 Systolic blood pressure 112 mm[Hg] Ar Greer DO Work Phone: [facility] 02-21-2024 08:35-0500 Body height 175.26 cm Antoni Cohn DO Work Phone: [facility] 02-21-2024 08:35-0500 Body mass index (BMI) [Ratio] 31.4 kg/m2 Antoni Ball DO Work Phone: [facility] 02-21-2024 08:35-0500 Body weight 96.7 kg Antoni Ball DO Work Phone: [facility] 02-21-2024 08:35-0500 Diastolic blood pressure 60 mm[Hg] Antoni Ball DO Work Phone: [facility] 02-21-2024 08:35-0500 Heart rate 72 /min Antoni Ball DO Work Phone: [facility] 02-21-2024 08:35-0500 SaO2% (BldA) [Mass fraction] 98 % Antoni Ball DO Work Phone: [facility] 02-21-2024 08:35-0500 Systolic blood pressure 118 mm[Hg] Antoni Ball DO Work Phone: [facility] 01-10-2024 11:54-0400 Body height 177.8 cm Ar Greer DO Work Phone: [facility] 01-10-2024 11:54-0400 Body mass index (BMI) [Ratio] 29.41 kg/m2 Ar Greer DO Work Phone: [facility] 01-10-2024 11:54-0400 Body weight 92.99 kg Ar Greer DO Work Phone: [facility] 01-10-2024 11:54-0400 Diastolic blood pressure 60 mm[Hg] Ar Greer DO Work Phone: [facility] 01-10-2024 11:54-0400 Heart rate 64 /min Ar Greer DO Work Phone: [facility] 01-10-2024 11:54-0400 Systolic blood pressure 100 mm[Hg] Ar Greer DO Work Phone: [facility] 01-05-2024 10:20-0400 Body height 175.26 cm Antoni Ball DO Work Phone: [facility] 01-05-2024 10:20-0400 Body mass index (BMI) [Ratio] 30.3 kg/m2 Antoni Ball DO Work Phone: [facility] 01-05-2024 10:20-0400 Body weight 93.09 kg Antoni Ball DO Work Phone: [facility] 01-05-2024 10:20-0400 Diastolic blood pressure 56 mm[Hg] Antoni Ball DO Work Phone: [facility] 01-05-2024 10:20-0400 Heart rate 48 /min Antoni Ball DO Work Phone: [facility] 01-05-2024 10:20-0400 SaO2% (BldA) [Mass fraction] 97 % Antoni Ball DO Work Phone: [facility] 01-05-2024 10:20-0400 Systolic blood pressure 110 mm[Hg] Antoni Ball DO Work Phone: [facility] 12-28-2023 14:23-0400 Body height 175.26 cm Antoni Ball DO Work Phone: [facility] 12-28-2023 12:13-0400 Body temperature 98 [degF] DO Antoni Ball Work Phone: [facility] 12-28-2023 12:13-0400 Diastolic blood pressure 67 mm[Hg] DO Antoni Ball Work Phone: [facility] 12-28-2023 12:13-0400 Heart rate 62 /min DO Antoni Ball Work Phone: [facility] 12-28-2023 12:13-0400 Respiratory rate 18 /min DO Antoni Ball Work Phone: [facility] 12-28-2023 12:13-0400 SaO2% (BldA) [Mass fraction] 99 % DO Antoni Ball Work Phone: [facility] 12-28-2023 12:13-0400 Systolic blood pressure 127 mm[Hg] DO Antoni Ball Work Phone: [facility] 12-28-2023 05:47-0400 Body weight 90.5 kg DO Antoni Ball Work Phone: [facility] 12-26-2023 20:37-0400 Body height 175.26 cm DO Antoni Ball Work Phone: [facility] 12-26-2023 13:07-0400 Body height 176.53 cm DO Antoni Ball Work Phone: [facility] 12-26-2023 13:07-0400 Body mass index (BMI) [Ratio] 29.9 kg/m2 DO Antoni Ball Work Phone: [facility] 12-26-2023 13:07-0400 Body weight 93.21 kg DO Antoni Ball Work Phone: [facility] 12-26-2023 13:07-0400 Diastolic blood pressure 72 mm[Hg] DO Antoni Ball Work Phone: [facility] 12-26-2023 13:07-0400 Heart rate 73 /min DO Antoni Ball Work Phone: [facility] 12-26-2023 13:07-0400 Respiratory rate 12 /min DO Antoni Ball Work Phone: [facility] 12-26-2023 13:07-0400 SaO2% (BldA) [Mass fraction] 96 % DO Antoni Ball Work Phone: [facility] 12-26-2023 13:07-0400 Systolic blood pressure 123 mm[Hg] DO Antoni Ball Work Phone: [facility] 10-18-2023 11:59-0400 Body height 176.53 cm DO Antoni Ball Work Phone: [facility] 10-18-2023 11:59-0400 Body mass index (BMI) [Ratio] 29.5 kg/m2 DO Antoni Ball Work Phone: [facility] 10-18-2023 11:59-0400 Body weight 92.07 kg DO Antoni Ball Work Phone: [facility] 10-18-2023 11:59-0400 Diastolic blood pressure 78 mm[Hg] DO Antoni Ball Work Phone: [facility] 10-18-2023 11:59-0400 Heart rate 67 /min DO Antoni Ball Work Phone: [facility] 10-18-2023 11:59-0400 Respiratory rate 12 /min DO Antoni Ball Work Phone: [facility] 10-18-2023 11:59-0400 Systolic blood pressure 146 mm[Hg] DO Antoni Ball Work Phone: [facility] 02-17-2023 08:30-0500 Body height Antoni Ball Other [facility] Other 02-17-2023 08:30-0500 Body mass index (BMI) [Ratio] 29.43 kg/m2 Antoni Ball Other [facility] [employer] Other 02-17-2023 08:30-0500 Body temperature 97.3 [degF] Antoni Ball Other [employer] Other 02-17-2023 08:30-0500 Body weight 91.72 kg Antoni Ball Other [employer] Other 02-17-2023 08:30-0500 Diastolic blood pressure 65 mm[Hg] Antoni Ball Other [employer] Other 02-17-2023 08:30-0500 Respiratory rate 14 /min Antoni Ball Other [employer] Other 02-17-2023 08:30-0500 SaO2% (BldA) [Mass fraction] 96 % Antoni Ball Other [employer] Other 02-17-2023 08:30-0500 Systolic blood pressure 110 mm[Hg] Antoni Ball Other [employer] Other 10-07-2022 09:00-0400 Body height Antoni Ball Other [employer] Other 10-07-2022 09:00-0400 Body mass index (BMI) [Ratio] 29.72 kg/m2 Antoni Ball Other [employer] Other 10-07-2022 09:00-0400 Body weight 92.63 kg Antoni Ball Other [employer] Other 10-07-2022 09:00-0400 Diastolic blood pressure 69 mm[Hg] Antoni Ball Other [employer] Other 10-07-2022 09:00-0400 Respiratory rate 12 /min Antoni Ball Other [employer] Other 10-07-2022 09:00-0400 Systolic blood pressure 138 mm[Hg] Antoni Ball Other [employer] Other 07-06-2022 09:30-0400 Body height Antoni Ball Other [employer] Other 07-06-2022 09:30-0400 Body mass index (BMI) [Ratio] 30.33 kg/m2 Antoni Ball Other [employer] Other 07-06-2022 09:30-0400 Body weight 94.53 kg Antoni Ball Other [employer] Other 07-06-2022 09:30-0400 Diastolic blood pressure 76 mm[Hg] Antoni Ball Other [employer] Other 07-06-2022 09:30-0400 Respiratory rate 12 /min Antoni Cohn Other [employer] Other 07-06-2022 09:30-0400 Systolic blood pressure 118 mm[Hg] Antoni Cohn Other [employer] Other Encounters Encounter Date Encounter Type Care Provider Facility Start: 07-10-2024 End: 07-10-2024 Office outpatient visit 25 minutes Ar Greer DO Work Phone: [facility] Comment on above: ASHD (arteriosclerot ic heart disease); NSTEMI (non-ST elevated myocardial infarction) (Multi); History of percutaneous coronary intervention; Cigar smoker; Diabetes mellitus type II, non insulin dependent (Multi); Hyperlipidemia, unspecified hyperlipidemia type; BMI 30.0-30.9,adult Start: 07-10-2024 End: 07-10-2024 ambulatory [facility] [facility] Start: 03-21-2024 End: 03-21-2024 Patient encounter procedure Antoni Cohn DO Work Phone: [facility] Work Phone: Start: 03-21-2024 End: 03-21-2024 ambulatory Antoni Cohn DO Work Phone: [facility] Work Phone: Start: 02-21-2024 End: 02-21-2024 Patient encounter procedure Antoni Cohn DO Work Phone: [facility] Work Phone: Start: 02-18-2024 Patient encounter procedure Antoni Cohn DO Work Phone: [facility] Start: 01-10-2024 End: 01-10-2024 ambulatory [facility] Start: 01-10-2024 End: 01-10-2024 Transitional care manage srvc 14 day discharge Ar Post Mani BARKER Work Phone: [facility] Comment on above: NSTEMI (non-ST eleva adriel myocardial infarction) (Multi); History of percutaneous coronary intervention; Diabetes mellitus type II, non insulin dependent (Multi); Body mass index (BMI) 29.0-29.9, adult; Cigar smoker Start: 01-05-2024 End: 01-05-2024 Patient encounter procedure Antoni Ball DO Work Phone: [facility] Work Phone: Start: 01-04-2024 Non-patient / Non-visit Benjam in Ball DO Work Phone: [facility] Work Phone: Start: 12-29-2023 Non-patient / Non-visit Benjam in Ball DO Work Phone: [facility] Work Phone: Start: 12-29-2023 Non-patient / Non-visit Benjam in Ball DO Work Phone: [facility] Work Phone: Start: 12-26-2023 Non-patient / Non-visit Benjam in Ball DO Work Phone: [facility] Work Phone: Start: 12-26-2023 End: 12-28-2023 Evaluation and management of inpatient DO Antoni Ball Work Phone: [facility] [place] [employer] Work Phone: Start: 12-26-2023 End: 12-26-2023 Patient encounter procedure DO Antoni Cohn Work Phone: [facility] Work Phone: Start: 11-15-2023 End: 11-15-2023 ambulatory Patito [place]OLINA [place] [place]: 11-08-2023 Non-patient / Non-visit DO Anthony cornejo Ball Work Phone: [facility] Work Phone: Start: 10-19-2023 Non-patient / Non-visit DO Anthony Cohn Work Phone: [facility] Work Phone: Start: 10-18-2023 End: 10-18-2023 Patient encounter procedure DO Antoni Cohn Work Phone: [facility] Work Phone: Start: 05-31-2023 End: 05-31-2023 ambulatory Patitoimelda MOLINA [place] [place] Start: 04-11-2023 End: 04-11-2023 ambulatory Antoni Cohn Other [employer] Other Start: 04-11-2023 Telephone encounter Antoni Cohn [facility] Start: 04-05-2023 End: 04-05-2023 ambulatory Antoni Cohn Other [employer] Other Start: 04-05-2023 Telephone encounter Antoni Cohn [facility] Start: 02-17-2023 End: 02-17-2023 ambulatory Antoni Cohn Other [employer] Other Start: 02-17-2023 Patient encounter procedure Antoni Cohn [facility] Start: 10-12-2022 End: 10-12-2022 ambulatory Antoni Cohn Other [employer] Other Start: 10-12-2022 Telephone encounter Antoni Cohn [facility] Start: 10-07-2022 End: 10-07-2022 ambulatory Antoni Ball Other [employer] Other Start: 10-07-2022 Office outpatient vi sit 25 minutes Antoni Ball [facility] Start: 07-06-2022 End: 07-06-2022 ambulatory Antoni Ball Other [employer] Other Start: 07-06-2022 Office outpatient vi sit 15 minutes Antoni Ball [facility] Start: 02-28-2022 End: 03-01-[address] ANTONI COHN Facility:[facility] Start: 02-15-2022 Adult health examination Zack Cohn Other [employer] Other Start: 02-15-2022 Encounter for genera l adult medical examination without abnormal findings Antoni Cohn Other [employer] Other Start: 11-13-2021 End: 11-14-[address] ANTONI COHN Facility:[facility] Start: 11-11-2021 End: 11-11-[address] PATITO MOLINA Facility:[facility] Start: 11-09-2021 Encounter for preprocedural laboratory examination DR PATITO MOLINA [facility] Start: 11-08-2021 End: 11-09-[address] PATITO MOLINA Facility:[facility] Start: 11-08-2021 End: 11-09-2021 Encounter for preprocedural laboratory examination DR PATITO MOLINA Facility:[facility] Start: 11-03-2021 Encounter for preprocedural cardiovascular examination DR PATITO MOLINA [facility] Start: 11-03-2021 Encounter for preprocedural laboratory examination DR PATITO MOLINA [facility] Start: 11-01-2021 End: 11-02-[address] PATITO MOLINA Facility:[facility] Start: 11-01-2021 End: 11-02-2021 Encounter for preprocedural cardiovascular examination DR PATITO MOLINA Facility:[facility] Start: 10-12-2021 End: 10-13-[address] ANTONI COHN Facility:[facility] Start: 07-01-2021 End: 07-02-[address] ANTONI COHN Facility:[facility] Start: 03-10-2021 End: 03-11-[address] ANTONI COHN Facility:[facility] Start: 01-27-2019 Encounter for preprocedural cardiovascular examination Antoni Cohn Other [employer] Other Start: 01-27-2019 Preoperative cardiovascular examination Antoni Cohn Other [employer] Other Procedures Date Procedure Procedure Detail Performing Clinician Start: 03-21-2024 Plain chest X-ray Zack min Ball DO Work Phone: Start: 12-27-2023 CL Coronary Thrombol ysis IV DO Antoni Ball Work Phone: Start: 12-27-2023 CL Ivus Ea Add Vessel D O Antoni Ball Work Phone: Start: 12-27-2023 CL Ivus Initial Vessel DO Antoni Ball Work Phone: Start: 12-27-2023 CL LHC & COR Angio DO B enjamin Ball Work Phone: Start: 12-27-2023 CL Stent 1st Vessel CX ASHUTOSH DO Antoni Ball Work Phone: Start: 12-27-2023 CL Stent 1st Vessel LAD ASHUTOSH DO Antoni Ball Work Phone: Start: 12-27-2023 CL Stent 1st Vessel RCA ASHUTOSH DO Antoni Ball Work Phone: Start: 11-01-[address] LAMIN MOLINA Comment on above: Performed By: #### B MP #### [facility] [address] [place] [address] Dr. Gil Smith Start: 11-08-2013 Pre-surgery evaluation Antoni Cohn Other Start: 10-14-2013 Screening for malign ant neoplasm of prostate Antoni Ball Other Depression screening Landon n Lalit Other Screening for malign ant neoplasm of prostate Antoni Lalit Other Plan of Treatment Date Care Activity Detail Author Start: 06-07-2027 DTaP/Tdap/Td Vaccines (3 - Tdap) DTaP/Tdap/Td Vaccines (3 - Tdap) [facility] Start: 01-15-2025 End: 01-15-2025 Patient encounter procedure 01/15/2025 10:10 AM EST Office Visit [facility] [address] [facility] [address] [place] [id number] Ar Greer DO [address] [place] [address] [facility] Start: 11-11-2024 Influenza vaccination Influenza Vaccine (Season Ended) [facility] Start: 07-10-2024 End: 07-10-2024 Patient encounter procedure 07/10/2024 9:40 AM EDT Office Visit [facility] [address] [place] [id number] Ar Greer DO [address] [place] [address] [facility] Start: 01-01-2024 [facility] Start: 12-31-2023 [facility] Start: 12-30-2023 [facility] Start: 12-29-2023 [facility] Start: 12-28-2023 [facility] Start: 12-27-2023 Referral to cardiac rehabilitation program [facility] Start: 12-26-2023 Sleep disorder assessment [facility] Start: 12-26-2023 Hospital admission [facility] Start: 12-26-2023 Dilation of Coronary Artery, Three Arteries, Bifurcation, with Three Drug-eluting Intraluminal Devices, Percutaneous Approach Dilation of Coronary Artery, Three Arteries, Bifurcation, with Three Drug-eluting Intraluminal Devices, Percutaneous Approach [facility] Start: 12-26-2023 Fluoroscopy of Left Heart using Low Osmolar Contrast Fluoroscopy of Left Heart using Low Osmolar Contrast [facility] Start: 12-26-2023 Fluoroscopy of Right and Left Heart using Low Osmolar Contrast Fluoroscopy of Right and Left Heart using Low Osmolar Contrast [facility] Start: 12-26-2023 Measurement of Cardiac Sampling and Pressure, Left Heart, Via Natural or Artificial Opening Measurement of Cardiac Sampling and Pressure, Left Heart, Via Natural or Artificial Opening [facility] Start: 11-12-2023 COVID-19 Vaccine ( season) COVID-19 Vaccine ( season) [facility] Start: 11-12-2023 Influenza vaccination Influenza Vaccine (#1) [facility] Start: 02-15-2016 Abdominal aortic aneurysm screening Abdominal Aortic Aneurysm (AAA) Screening [facility] Start: 2011 RSV High Risk: (Elderly (60+) or Population) (1 - Risk 60-74 years 1-dose series) RSV High Risk: (Elderly (60+) or Population) (1 - Risk 60-74 years 1-dose series) [facility] Start: 2001 Zoster Vaccines (1 of 2) Zoster Vaccines (1 of 2) [facility] Start: 1973 DTaP/Tdap/Td Vaccines (1 - Tdap) DTaP/Tdap/Td Vaccines (1 - Tdap) [facility] Start: 1970 Pneumococcal vaccination Pneumococcal Vaccine (1 of 2 - PCV) [facility] Start: 1969 Hepatitis C screening Hepatitis C Screening [facility] Start: 1961 Glaucoma screening Diabetes: Retinopathy Screening [facility] Start: 1957 Pneumococcal Vaccine: 65+ Years (1 of 2 - PCV) Pneumococcal Vaccine: 65+ Years (1 of 2 - PCV) [facility] Start: 1950 Hemoglobin A1c measurement Diabetes: Hemoglobin A1C [facility] Start: 1950 Lipid panel Lipid Panel [facility] Start: 1950 Medicare Annual Wellness Visit Medicare Annual Wellness Visit (AWV) [facility] Start: 1950 Screening for malignant neoplasm of colon [facility] Start: 1950 Urine screening for protein Diabetes: Urine Protein Screening [facility] Start: 1950 Yearly Adult Physical Yearly Adult Physical [facility] Patient Education Coronary Angio plasty (DC) Coronary Stenting (DC) Angina (DC) Chest Pain (DC) Ticagrelor Aspirin Carvedilol Nitroglycerin Drug Eluting Stents Know your Meds [facility] Work Phone: Patient referral [facility] Work Phone: XR Chest 2 Views [facility] Immunizations Immunization Date Immunization Notes Care Provider [place] 06-06-2017 diphtheria, tetanus toxoids and acellular pertussis vaccine, unspecified formulation Antoni Cohn Other [facility] 01-18-2017 diphtheria, tetanus toxoids and acellular pertussis vaccine, unspecified formulation Antoni Cohn Other [facility] Payers Date Payer Category Payer Self-pay [id number] 2023 Managed Care (Private) [facility] [id number] 2011 Medicare MEDICARE RAILROA D [id number] 1959 Medicare [id number] 1959 Private Health Insurance [id number] 1951 Unknown [id number] [id number]. 2.593 1951 Unknown [id number] 2.16.840.1.196001.3.579. 2.593 1951 Unknown [id number] 2.16.840.1.501558.3.579. 2.593 1951 Unknown [id number] 2.16840.1.904886.3.579. 2.593 1951 Unknown [id number] 2.16.840.1.382824.3.579. 2.593 1951 Unknown [id number] 2.16.840.1.224629.3.579. 2.593 1951 Unknown [id number] 2.16.840.1.424341.3.579. 2.593 1951 Unknown [id number] 2.16.840.1.031850.3.579. 2.593 1951 Unknown [id number] 2.16.840.1.442435.3.579. 2.727 1951 Unknown [id number] 2.16.840.1.034667.3.579. 2.727 1951 Unknown [id number] 2.16.840.1.236963.3.579. 2.727 1950 Unknown [id number] 2.16.840.1.414905.3.579. 2.727 1951 Unknown [id number] 2.16.840.1.163331.3.579. 2.1244 1951 Unknown [id number] 2.16.840.1.646250.3.579. 2.1244 Unknown [id number] 2.16.840.1.102583.3.579. 2.531 Unknown [id number] 2.16.840.1.686790.3.579. 2.531 Social History Date Type Detail Facility Start: 01-10-2024 Sex Assigned At [facility] Other Start: 12-27-2023 [facility] Start: 1950 Sex Assigned At Male [facility] Start: 01-10-2024 Tobacco smoking stat [facility] Smokes tobacco daily [facility] Work Phone: History of tobacco use [facility] Work Phone: Start: 01-10-2024 Tobacco use and exposure Smokeless tobacco non-user [facility] Work Phone: Start: 01-10-2024 End: 07-10-2024 Alcoholic beverage intake Lifetime non-drinker (finding) [facility] Work Phone: Start: 01-10-2024 History of Social function [facility] Work Phone: Start: 1950 Sex assigned at Not on file [facility] Work Phone: Start: 12-31-2023 End: 07-10-2024 Exposure to SARS-CoV-2 (event) Not sure [facility] Start: 02-21-2024 Tobacco smoking stat [facility] Ex-smoker (finding) [facility] Start: 03-22-2024 Sex Patient sex un known (finding) [facility] Medical Equipment Procedure Code Equipment Code Equipment Origin al Text Equipment Identifier Dates Start: 10-07-2022 CL STENT CONSTANCE FRONTIER 3.0 X 15 FDA Start: 12-27-2023 CL STENT CONSTANCE FRONTIER 3.0 X 18 FDA Start: 12-27-2023 Drug-eluting coronary artery stent, [id number] lymer-coated ()[id number] FDA Start: 12-27-2023 CL STENT CONSTANCE FRONTIER 3.0 X 15 FDA Start: 12-27-2023 CL STENT CONSTANCE FRONTIER 3.0 X 18 FDA Start: 12-27-2023 Blood Sugar Diagnostic (Onetouch Ultra Test) strip Start: 02-06-2024 Blood Sugar Diagnostic (Onetouch Ultra Test) strip Start: 02-05-2024 End: 02-06-2024 Goals Date Patient Goal Desired Activity /State Functional Status Date Assessment Result Facility 12-28-2023 Functional status Patient at Baseline [facility] Work Phone: Mental Status Date Assessment Result Facility 12-28-2023 Cognitive function Cognitive Sta tus Patient at Baseline [facility] Work Phone: Clinical Notes 07-06-2022 to 07-10-2024 Ar Bauerdon, DO - 07/10/2024 9:40 AM EDTPatient InstructionsEphraimchristine Greer, DO - 01/10/2024 11:40 AM EDTPatient Instructions Note Date & Type Note Facility 07-10-2024 History of Present illness Narrative Chief Complaint Patient presents with Follow-up 6month follow up for nstemi Subjective Jesse Garrison is a 74 y.o. male 74-year-old gentleman returns for 6-month cardiovascular follow-up for ongoing surveillance. He is doing well other than fatigue. He denies shortness of breath or syncope or nitrate usage or repeat hospitalizations. He admits to bilateral dorsal foot discomfort but denies any true claudication symptomatology and exam reveals intact dorsal pedal pulses on my exam Most recent [facility] are reviewed revealing an A1c of 8.6%, total cholesterol 107, LDL 48, triglycerides 291. Patient remains on appropriate GDMT for history of ACS/non-ST elevation NH with three-vessel revascularization December 2023 details of which are reviewed involving LAD, circumflex and RCA with drug-eluting stents with preserved LV function. He remains on DAPT and high intensity statin His Far[facility] no [facility] however Jardiance is on formulary and will be switching over to this will provide prescription appropriately He is still smoking approximately 5 mini cigars daily and we counseled him for 5 minutes today on tobacco cessation especially given his high risk anatomy. Recommendations: Continue current therapies, tobacco cessation, recommend getting his A1c down below 7%, will follow-up on lipid panel in the next 6+ months in regards to his triglycerides. Review of Systems Respiratory: Positive for shortness of breath. Vitals: 07/10/24 0951 BP: 112/60 BP Location: Left arm Patient Position: Sitting Pulse: 76 Weight: 94.1 kg (207 lb 6.4 oz) Height: 1.753 m (5' 9 ) Objective Physical Exam Constitutional: Appearance: Normal appearance. HENT: Nose: Nose normal. Neck: Vascular: No carotid bruit. Cardiovascular: Rate and Rhythm: Normal rate. Pulses: Normal pulses. Heart sounds: Normal heart sounds. Pulmonary: Effort: Pulmonary effort is normal. Abdominal: General: Bowel sounds are normal. Palpations: Abdomen is soft. Musculoskeletal: General: Normal range of motion. Cervical back: Normal range of motion. Right lower leg: No edema. Left lower leg: No edema. Skin: General: Skin is warm and dry. Neurological: General: No focal deficit present. Mental Status: He is alert. Psychiatric: Mood and Affect: Mood normal. Behavior: Behavior normal. Thought Content: Thought content normal. Judgment: Judgment normal. Allergies Patient has no known allergies. Current Medications Current Outpatient Medications Medication Instructions APPLE CIDER VINEGAR ORAL 1 tablet, 2 times daily ascorbic acid (VITAMIN C) 500 mg, Daily aspirin 81 mg, Daily atorvastatin (LIPITOR) 80 mg, oral, Daily carvedilol (COREG) 6.25 mg, 2 times daily cholecalciferol (VITAMIN D3) 25 mcg, Daily cyanocobalamin (VITAMIN B-12) 1,000 mcg, Daily glimepiride (AMARYL) 1 mg, Daily before breakfast lisinopril 20 mg, Daily metFORMIN (GLUCOPHAGE) 1,000 mg, 2 times daily (morning and late afternoon) multivitamin tablet 1 tablet, Daily nitroglycerin (NITROSTAT) 0.4 mg, Every 5 min PRN ticagrelor (BRILINTA) 90 mg, oral, 2 times daily Assessment/Plan 1. ASHD (arteriosclerotic heart disease) 2. NSTEMI (non-ST elevated myocardial infarction) (Multi) Follow Up In Cardiology 3. History of percutaneous coronary intervention 4. Cigar smoker 5. Diabetes mellitus type II, non insulin dependent (Multi) 6. Hyperlipidemia, unspecified hyperlipidemia type 7. BMI 30.0-30.9,adult Scribe Attestation By signing my name below, IAriella LPN , Scribe attest that this documentation has been prepared under the direction and in the presence of Ar Greer DO. Provider Attestation - Scribe documentation All medical record entries made by the Scribe were at my direction and personally dictated by me. I have reviewed the chart and agree that the record accurately reflects my personal performance of the history, physical exam, discussion and plan. documented in this encounter [facility] Work Phone: 07-10-2024 Instructions Ariella Webster LPN - 07/10/2024 9:40 AM EDT Please bring all medicines, vitamins, and herbal supplements with you when you come to the office. Prescriptions will not be filled unless you are compliant with your follow up appointments or have a follow up appointment scheduled as per instruction of your physician. Refills should be requested at the time of your visit. BMI was above normal measurement. Current weight: 94.1 kg (207 lb 6.4 oz) Weight change since last visit (-) denotes wt loss 2.4 lbs Weight loss needed to achieve BMI 25: 38.5 Lbs Weight loss needed to achieve BMI 30: 4.7 Lbs Provided instructions on dietary changes Provided instructions on exercise. documented in this encounter [facility] Work Phone: 01-10-2024 History of Present illness Narrative Subjective Jesse Garrison is a 73 y.o. male Chief Complaint Follow-up 73-year-old gentleman here for TCM office visit following non-ST elevation NH with three-vessel revascularization of the LAD, circumflex and RCA with IVUS guidance details of the interventional report are reviewed and discussed with patient. Patient also has diabetes, sugars have been running 170s to 180 from what he tells me post PCI. His primary care physician Dr. Anthony Cohn is keeping a close eye on his sugars and has a follow-up in February. LV function is normal, he is otherwise doing well with no recurrence of angina, shortness of breath or nitrate usage or repeat events. His states that the Brilinta cost too much and is financially constraining, will simply continue with 3 months of Brilinta and then switch over to clopidogrel with appropriate loading dose details of which have been discussed and explained to the patient and . Will consult cardiac rehab Review of Systems All other systems reviewed and are negative. Vitals: 01/10/24 1154 BP: 100/60 BP Location: Left arm Patient Position: Sitting Pulse: 64 Weight: 93 kg (205 lb) Height: 1.778 m (5' 10 ) Objective Physical Exam Constitutional: Appearance: Normal appearance. HENT: Nose: Nose normal. Neck: Vascular: No carotid bruit. Cardiovascular: Rate and Rhythm: Normal rate. Pulses: Normal pulses. Heart sounds: Normal heart sounds. Pulmonary: Effort: Pulmonary effort is normal. Abdominal: General: Bowel sounds are normal. Palpations: Abdomen is soft. Musculoskeletal: General: Normal range of motion. Cervical back: Normal range of motion. Right lower leg: No edema. Left lower leg: No edema. Skin: General: Skin is warm and dry. Neurological: General: No focal deficit present. Mental Status: He is alert. Psychiatric: Mood and Affect: Mood normal. Behavior: Behavior normal. Thought Content: Thought content normal. Judgment: Judgment normal. Allergies Patient has no known allergies. Current Medications Current Outpatient Medications: aspirin 81 mg EC tablet, Take 1 tablet (81 mg) by mouth once daily., Disp: , Rfl: atorvastatin (Lipitor) 80 mg tablet, Take 1 tablet (80 mg) by mouth once daily., Disp: , Rfl: carvedilol (Coreg) 6.25 mg tablet, Take 1 tablet (6.25 mg) by mouth 2 times a day. (Patient taking differently: Take 0.5 tablets (3.125 mg) by mouth 2 times a day.), Disp: , Rfl: nitroglycerin (Nitrostat) 0.4 mg SL tablet, Place 1 tablet (0.4 mg) under the tongue every 5 minutes if needed for chest pain. As needed, Disp: , Rfl: Assessment/Plan 1. NSTEMI (non-ST elevated myocardial infarction) (Multi) 2. History of percutaneous coronary intervention 3. Diabetes mellitus type II, non insulin dependent (Multi) 4. Body mass index (BMI) 29.0-29.9, adult 5. Cigar smoker Scribe Attestation By signing my name below, Kasey Diana LPN, Scribe attest that this documentation has been prepared under the direction and in the presence of Ar Greer DO. Provider Attestation - Scribe documentation All medical record entries made by the Scribe were at my direction and personally dictated by me. I have reviewed the chart and agree that the record accurately reflects my personal performance of the history, physical exam, discussion and plan. documented in this encounter [facility] Work Phone: 01-10-2024 Instructions Kasey Dodd LPN - 01/10/2024 11:40 AM EDT Please bring all medicines, vitamins, and herbal supplements with you when you come to the office. Prescriptions will not be filled unless you are compliant with your follow up appointments or have a follow up appointment scheduled as per instruction of your physician. Refills should be requested at the time of your visit. BMI was above normal measurement. Current weight: 93 kg (205 lb) Weight change since last visit (-) denotes wt loss 205 lbs Weight loss needed to achieve BMI 25: 31.1 Lbs Weight loss needed to achieve BMI 30: -3.6 Lbs Provided instructions on dietary changes Provided instructions on exercise. documented in this encounter [facility] Work Phone: 12-28-2023 Progress note Note Date/Time December 28, 2023 10:46am [facility] [address] [place] [address] Cardiology Progress Note Signed Patient: Jesse Garrison MR#: [id number] : 1950 Acct:[id number] Age/Sex: 73 / M Adm Date: 4 Loc: 4P Room: [address] [place] [address] Type: ADM IN Attending Dr: Olga Bailon MD Copies to: ~ Date of Service: 12/28/2023 Subjective Principal diagnosis: Non-ST elevation NH, three-vessel ASHD Interval history: Mr. Garrison is a 73 year old male seen in interventional cardiology consultation at request of [facility] nurse practitioner, and [facility] health hospitalist and patient who is transferred at my request from [facility] with new onset chest heaviness pressure and discomfort originally presented to his primary care physician's office, Dr. Cohn, who then appropriately had him go to [facility] for further workup. Troponins were initially elevated, ECG revealed sinus rhythm with right bundle branch block andT wave abnormality. Case was discussed with nurse practitioner at [facility] and made plans for antithrombotic therapies and transfer to [facility] for early invasive management. Troponin is trended upward to 1700, chest x-ray is clear, ECG as described Comorbidities are noted for diabetes mellitus, hypertension, hyperlipidemia, cigar smoking There is no prior history of myocardial infarction, revascularization, stroke, thromboembolic or bleeding disorder. 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 Interim evaluation 12/28/2023: Patient is doing extremely well, up and ambulating, right radial access site without hematoma excellent 3+ pulse. Patient's troponin peaked yesterday at 2375, down to 1513 this morning. Renal function is normal, serum creatinine 0.99, glucose 135 Medications reviewed, prescriptions for home-going medications arranged, TCM follow-up with cardiology arranged Counseling on medication compliance, smoking cessation and activity level discussed for over 30 minutes this morning. Patient be discharged and will follow-up with cardiology in the next 2 weeks. Exam Physical Exam Vital Signs: Temp Pulse Resp BP Pulse Ox O2 Del Method 98.2 F 66 18 119/69 96 Room Air 12/28/23 08:04 12/28/23 09:10 12/28/23 08:04 12/28/23 08:04 12/28/23 08:04 12/28/23 08:05 Const General: cooperative, comfortable and no acute distress Nutritional Appearance: average body habitus Orientation: alert, awake and oriented x3 HEENT Head: normal to inspection Neck Neck: normal visual inspection Chest Chest palpation & inspection: normal inspection of the chest Breast inspection: normal inspection of the breasts Resp Effort & Inspection: normal respiratory effort Auscultation: clear to auscultation bilaterally Cardio Palpation: normal PMI Rate: regular rate Rhythm: regular rhythm Heart Sounds: S1 normal and S2 normal Bruits: no carotid bruits Pulses: radial pulses present GI Palpation: soft Skin General: no rashes or lesions noted Neuro General: patient alert, patient awake and patient oriented x3 Cognition: normal cognition Speech: speech normal Extrem General: no clubbing, cyanosis or edema Objective Labs 12/28/23 04:38 12/28/23 04:38 Labs: Laboratory Results - last 24 hr 12/26/23 12/27/23 12/27/23 21:20 10:53 11:06 Corrected WBC Uncorrected WBC Count RBC Hgb Hct MCV MCH MCHC RDW Plt Count MPV Neut % (Auto) Lymph % (Auto) [place] % (Auto) Eos % (Auto) Baso % (Auto) Nucleat RBC Rel Count Neut # (Auto) Lymph # (Auto) [place] # (Auto) Eos # (Auto) Baso # (Auto) Heparin Anti-Xa, Unfract 0.24 L PHA Creatinine Clear Sodium Potassium Chloride Carbon Dioxide Anion Gap BUN Creatinine Est GFR (CKD-EPI) Glucose POC Glucose 156 Estimat Average Glucose 192 Hemoglobin A1c 8.3 H Calcium Troponin I High Sens B-Natriuretic Peptide Triglycerides Cholesterol LDL Cholesterol, Calc VLDL Cholesterol HDL Cholesterol Cholesterol/HDL Ratio 12/27/23 12/27/23 12/27/23 16:54 19:08 20:48 Corrected WBC Uncorrected WBC Count RBC Hgb Hct MCV MCH MCHC RDW Plt Count MPV Neut % (Auto) Lymph % (Auto) [place] % (Auto) Eos % (Auto) Baso % (Auto) Nucleat RBC Rel Count Neut # (Auto) Lymph # (Auto) [place] # (Auto) Eos # (Auto) Baso # (Auto) Heparin Anti-Xa, Unfract PHA Creatinine Clear Sodium Potassium Chloride Carbon Dioxide Anion Gap BUN Creatinine Est GFR (CKD-EPI) Glucose POC Glucose 121 226 Estimat Average Glucose Hemoglobin A1c Calcium Troponin I High Sens 2208.9 H* B-Natriuretic Peptide Triglycerides Cholesterol LDL Cholesterol, Calc VLDL Cholesterol HDL Cholesterol Cholesterol/HDL Ratio 12/27/23 12/27/23 12/28/23 21:09 22:57 01:11 Corrected WBC Uncorrected WBC Count RBC Hgb Hct MCV MCH MCHC RDW Plt Count MPV Neut % (Auto) Lymph % (Auto) [place] % (Auto) Eos % (Auto) Baso % (Auto) Nucleat RBC Rel Count Neut # (Auto) Lymph # (Auto) [place] # (Auto) Eos # (Auto) Baso # (Auto) Heparin Anti-Xa, Unfract PHA Creatinine Clear Sodium Potassium Chloride Carbon Dioxide Anion Gap BUN Creatinine Est GFR (CKD-EPI) Glucose POC Glucose Estimat Average Glucose Hemoglobin A1c Calcium Troponin I High Sens 2375.1 H* 2228.0 H* 1776.4 H* B-Natriuretic Peptide Triglycerides Cholesterol LDL Cholesterol, Calc VLDL Cholesterol HDL Cholesterol Cholesterol/HDL Ratio 12/28/23 12/28/23 04:38 07:40 Corrected WBC 12.8 H Uncorrected WBC Count 12.8 H RBC 4.95 Hgb 15.4 Hct 43.5 MCV 87.9 MCH 31.0 MCHC 35.3 RDW 12.5 Plt Count 320 MPV 7.8 Neut % (Auto) 70.6 Lymph % (Auto) 22.0 [place] % (Auto) 5.6 Eos % (Auto) 1.5 Baso % (Auto) 0.3 Nucleat RBC Rel Count 0.0 Neut # (Auto) 9.1 H Lymph # (Auto) 2.8 [place] # (Auto) 0.7 Eos # (Auto) 0.2 Baso # (Auto) 0.0 Heparin Anti-Xa, Unfract PHA Creatinine Clear 75.00 Sodium 137 Potassium 4.6 Chloride 103 Carbon Dioxide 24.8 Anion Gap 13.8 BUN 11 Creatinine 0.99 Est GFR (CKD-EPI) > 60.0 Glucose 135 H POC Glucose 168 Estimat Average Glucose Hemoglobin A1c Calcium 9.2 Troponin I High Sens 1513.9 H* B-Natriuretic Peptide 35.0 Triglycerides 262 H Cholesterol 126 L LDL Cholesterol, Calc 43 VLDL Cholesterol 52 HDL Cholesterol 31 Cholesterol/HDL Ratio 4.1 A&P - Cardiology (1) NSTEMI (non-ST elevated myocardial infarction): Code(s): I21.4 - Non-ST elevation (NSTEMI) myocardial infarction (2) T2DM (type 2 diabetes mellitus): Code(s): E11.9 - Type 2 diabetes mellitus without complications (3) Angina of effort: Code(s): I20.89 - Other forms of angina pectoris (4) Type 2 diabetes mellitus with hyperglycemia: Qualifiers: Diabetes mellitus mcfp insulin use: without mcfp use Qualified Code(s): E11.65 - Type 2 diabetes mellitus with hyperglycemia Code(s): E11.65 - Type 2 diabetes mellitus with hyperglycemia (5) Essential (primary) hypertension: Code(s): I10 - Essential (primary) hypertension (6) Elevated cholesterol: Code(s): E78.00 - Pure hypercholesterolemia, unspecified Plan See above, proceed with early invasive manage Documented By: Otoniel Greer DO 12/28/231041 Signed By: <Electronically signed by Otoniel Greer DO> 12/28/236 [facility] Work Phone: [phone] 407-624010-17-2024 Progress note Author Olga Bailon [facility] December 28, 2023 12:14am Note Date/Time December 27, 2023 7 :00pm [facility] [address] [place] [address] Hospitalist Progress Note Signed Patient: Jesse Garrison MR#: [id number] : 1950 Acct:[id number] Age/Sex: 73 / M Adm Date: 4 Loc: 4 Room: [address] [place] [address] Type: ADM IN Attending Dr: Olga Bailon MD Copies to: ~ Date of Service: 12/27/2023 Subjective Subjective Narrative: Assessment And Plan 73M with PMH of HTN, DM, HLD, Tobacco abuse (Cigar) who presented to his PCP with intermittent chest pressure then send to [facility] ED for evaluation he was found with NSTEMI and transferred for the need of cardiology evaluation NSTEMI He was started on heparin drip Troponin up to 1100 LDL 37 He underwent LHC shows Severe three-vessel ASHD (Infarct vessel 99% mid circumflex with concomitant 80% mid LAD and 85% proximal RCA disease and preserved left ventricular function) and Normal left ventricular function. he required multiple stents (mid circumflex, mid LAD,proximal RCA ) ASA, Brilinta, Carvedilol and statin Cardiology recommendation appreciated. DM blood sugars were reviewed carbohydrate controlled diet. sliding scale insulin and accuchecks. A1c 8.3 LINTERVAL HPI: As Above, Pt resting in bed. feeling better. Denies any chest pain, SOB Chronic diseases: Unless mentioned Above, Essential home medications have been continued. DVT Px: Addressed Disposition: To be determined Plan of care Discussed with: the medical team, the patient L Exam Physical Exam Vital Signs: Temp Pulse Resp BP Pulse Ox O2 Del Method 36.8 C 60 17 150/74 H 99 Room Air 12/27/23 16:55 12/27/23 18:55 12/27/23 11:31 12/27/23 18:55 12/27/23 18:55 12/27/23 18:55 Narrative: GEN: NAD, Cooperative LUNGS: CTA. normal respiratory effort CV: nl S1 S2; no M/R/G ABD: Soft, ND, NT, + BS, ? HSM EXT: No peripheral edema, No calf muscle tenderness NEURO: ? FND. PSYCH: nl affect, AOx3 Objective Lab Results 12/27/23 04:24 12/27/23 04:24 Meds Allergies and Active Meds Allergies No Known Allergies Allergy (Verified 12/26/23 13:07) Active Meds: Active Medications Generic Name Dose Route Start Last Admin Trade Name Freq PRN Reason Stop Dose Admin Acetaminophen 650 mg 12/26/23 20:41 Acetaminophen 325 Mg Tablet PO 12/25/24 20:40 Q6HR PRN Pain Scale 1 - 3 or fever Acetaminophen 1,000 mg 12/27/23 16:31 Acetaminophen 500 Mg Tablet PO 12/26/24 16:30 Q6H PRN Fever or Pain Aspirin 81 mg 12/28/23 09:00 Aspirin 81 Mg Tablet.Dr PO 12/27/24 08:59 DAILY WES Atorvastatin Calcium 80 mg 12/26/23 21:00 12/26/23 21:25 Atorvastatin 80 Mg Tablet PO 12/25/24 20:59 80 mg QPM WES Administration Atorvastatin Calcium 80 mg 12/27/23 21:00 Atorvastatin 80 Mg Tablet PO 12/26/24 20:59 QPM WES Atropine Sulfate 1 mg 12/27/23 16:31 Atropine Sulfate 1 Mg/10 Ml Syringe IV-PUSH ONCE PRN Symptomatic Bradycardia Carvedilol 6.25 mg 12/27/23 17:00 12/27/23 18:06 Carvedilol 6.25 Mg Tablet PO 12/26/24 16:59 Not Given BID.WITH.MEALS WES Dextrose 0 gm 12/26/23 20:45 Dextrose 50% In Water 25 Gm/50 Ml Syringe IV-PUSH 12/25/24 20:44 PRN PRN Hypoglycemia Dextrose 0 gm 12/26/23 21:36 Dextrose 50% In Water 25 Gm/50 Ml Syringe IV-PUSH 12/25/24 21:35 PRN PRN Hypoglycemia Glucose 0 gm 12/26/23 20:45 Dextrose 40% Gel 15 Gm Tube PO 12/25/24 20:44 PRN PRN Hypoglycemia Glucose 0 gm 12/26/23 21:36 Dextrose 40% Gel 15 Gm Tube PO 12/25/24 21:35 PRN PRN Hypoglycemia Heparin Sodium (Porcine) 2,000 unit 12/26/23 21:27 Heparin *Protocol Bolus* 5,000 Unit/Ml Vial IV-PUSH 12/25/24 21:26 PROTOCOL PRN Anti-Xa < 0.1 or aPTT < 40 Sodium Chloride 250 mls @ 999 mls/hr 12/27/23 16:31 0.9% Sodium Chloride 250 Ml IV 12/26/24 16:30 PRN PRN Hypotension Cangrelor 50 mg/ Sodium 250 mls @ 109.44 mls/hr 12/27/23 17:00 12/27/23 17:07 Chloride IV 12/27/23 19:17 4 mcg/kg/min .Q2H18M WES 109.44 mls/hr Administration 4 MCG/KG/MIN Insulin Aspart 0 units 12/26/23 22:00 12/27/23 18:06 Insulin Aspart 300 Units/3 Ml Insuln.Pen SUBCUT 12/25/24 21:59 Not Given TID.WM.HS WES Protocol Lidocaine HCl 10 ml 12/27/23 16:31 Lidocaine 2% Mdv 50 Ml Vial SUBCUT 12/28/23 04:32 ONCE PRN Sheath Removal Lisinopril 20 mg 12/27/23 09:00 12/27/23 08:39 Lisinopril 20 Mg Tablet PO 12/26/24 08:59 20 mg DAILY WES Administration Meperidine HCl 25 mg 12/27/23 16:31 Meperidine Pf 25 Mg/Ml Vial IV-PUSH 12/28/23 04:32 ONCE PRN Sheath Removal Miscellaneous Information 1 each 12/26/23 21:27 [facility] 12/25/24 21:26 .PHACONSULT PRN ZZ.Pharmacy Consult Protocol Miscellaneous Information 1 each 12/27/23 09:00 [facility] 12/26/24 08:59 .PHACONSULT PRN ZZ.Pharmacy Consult Protocol Nitroglycerin 0.4 mg 12/26/23 20:41 12/26/23 22:15 Nitroglycerin 0.4 Mg Tab.Subl SUBLINGUAL 12/25/24 20:40 0.4 mg Q5M PRN Administration Chest Pain Potassium Chloride 20 meq 12/26/23 20:41 Potassium Chloride Er 20 Meq Tab.Er.Prt PO 12/25/24 20:40 DAILY PRN Hypokalemia Potassium Chloride 40 meq 12/26/23 20:41 Potassium Chloride Er 20 Meq Tab.Er.Prt PO 12/25/24 20:40 DAILY PRN Hypokalemia Potassium Chloride 40 meq 12/27/23 09:05 Potassium Chloride Er 20 Meq Tab.Er.Prt PO STAT PRN Hypokalemia Promethazine HCl 12.5 mg 12/27/23 16:31 Promethazine 25 Mg/Ml Vial IM 12/28/23 04:32 ONCE PRN Sheath Removal Sodium Chloride 0 ml 12/26/23 20:41 Sodium Chloride 0.9 % 10 Ml Syringe IV-PUSH 12/25/24 20:40 PRN PRN Flush Sodium Chloride 0 ml 12/26/23 22:00 12/27/23 17:06 Sodium Chloride 0.9 % 10 Ml Syringe IV-PUSH 12/25/24 21:59 10 ml QSHIFT WES Administration Sodium Chloride 0 ml 12/27/23 09:00 Sodium Chloride 0.9 % 10 Ml Syringe IV-PUSH 12/26/24 08:59 PRN PRN Flush Ticagrelor 90 mg 12/27/23 21:00 Ticagrelor 90 Mg Tablet PO 12/26/24 20:59 BID WES A&P - Hospitalist Assessment/Plan (1) NSTEMI (non-ST elevated myocardial infarction): (2) Essential (primary) hypertension: (3) T2DM (type 2 diabetes mellitus): Plan Documented By: Olga Bailon MD 12/27/231899 Signed By: <Electronically signed by Olga Bailon MD> 12/28/23 001 [facility] Work Phone: [phone] 767-738310-16-2024 Consult note Author Otoniel Greer [facility] December 27, 2023 3:25pm Note Date/Time December 27, 2023 3 :23pm [facility] [address] [place] [address] Cardiology Consult Note Signed Patient: Jesse Garrison MR#: [id number] : 1950 Acct:[id number] Age/Sex: 73 / M Adm Date: 4 Loc: 4 Room: [address] [place] [address] Type: ADM IN Attending Dr: Olga Bailon MD Copies to: DO Olga Uriarte MD W Scott Sheldon, DO~ Cardiology HPI History of Present Illness Consult Date: 12/27/23 Reason for Consult: Non-ST elevation [place] HPI: Mr. Garrison is a 73 year old male seen in interventional cardiology consultation at request of [facility] nurse practitioner, and [facility] health hospitalist and patient who is transferred at my request from [facility] with new onset chest heaviness pressure and discomfort originally presented to his primary care physician's office, Dr. Cohn, who then appropriately had him go to [facility] for further workup. Troponins were initially elevated, ECG revealed sinus rhythm with right bundle branch block andT wave abnormality. Case was discussed with nurse practitioner at [facility] and made plans for antithrombotic therapies and transfer to [facility] for early invasive management. Troponin is trended upward to 1700, chest x-ray is clear, ECG as described Comorbidities are noted for diabetes mellitus, hypertension, hyperlipidemia, cigar smoking There is no prior history of myocardial infarction, revascularization, stroke, thromboembolic or bleeding disorder. 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 Radiculopathy, cervical region (04/11/14) Personal history of colonic polyps Mucopurulent chronic bronchitis Melanoma in situ, unspecified (03/13/11) Malignant melanoma of cheek History of falling Essential (primary) hypertension Elevated prostate specific antigen (PSA) (06/11/18) Cigarette nicotine dependence in remission Basal cell carcinoma of skin, unspecified Surgical History (Updated 12/26/23 @ 21:08 by Sayda Stiles RN) H/O wrist surgery left H/O colonoscopy 2020 H/O cystoscopy 2019 H/O knee surgery 2009 Family History (Updated 12/26/23 @ 21:24 by Yamilex Verma APRN) Father [employer]' pneumoconiosis 77 yrs Cancer Lung Mother Diabetes 87 yrs Cancer Colon Sister Cancer Social History Smoking Status: Current every day smoker (cigars daily) Tobacco Type: cigars Substance Use Type: None Meds Medications and Allergies Allergies No Known Allergies Allergy (Verified 12/26/23 13:07) Home Medications metformin 1,000 mg tablet See Rx Instructions .Route .COMPLEX #90 tabs 07/28/23 [Rx Confirmed 12/26/23] lisinopril 20 mg tablet 20 mg PO DAILY 90 days #90 tabs 10/18/23 [Rx Confirmed 12/26/23] albuterol sulfate 90 mcg/actuation aerosol inhaler 2 puff inhalation Q6HR PRN shortness of breath or wheezing 30 days #8.5 grams 10/23/23 [Rx Confirmed 12/26/23] inhalational spacing device (Aerochamber Mini) #1 ea 10/23/23 [Rx Confirmed 12/26/23] atorvastatin 10 mg tablet 10 mg PO DAILY 90 days #90 tabs 10/31/23 [Rx Confirmed 12/26/23] Exam Physical Exam Vital Signs: Temp Pulse Resp BP Pulse Ox O2 Del Method 98.3 F 59 L 17 123/65 96 Room Air 12/27/23 11:31 12/27/23 11:31 12/27/23 11:31 12/27/23 11:31 12/27/23 11:31 12/27/23 11:31 Const General: cooperative, comfortable and no acute distress Nutritional Appearance: average body habitus Orientation: alert, awake and oriented x3 HEENT Head: normal to inspection Neck Neck: normal visual inspection Chest Chest palpation & inspection: normal inspection of the chest Breast inspection: normal inspection of the breasts Resp Effort & Inspection: normal respiratory effort Auscultation: clear to auscultation bilaterally Cardio Palpation: normal PMI Rate: regular rate Rhythm: regular rhythm Heart Sounds: S1 normal and S2 normal Bruits: no carotid bruits Pulses: radial pulses present GI Palpation: soft Skin General: no rashes or lesions noted Neuro General: patient alert, patient awake and patient oriented x3 Cognition: normal cognition Speech: speech normal Extrem General: no clubbing, cyanosis or edema Results - Cardiology Labs 12/27/23 04:24 12/27/23 04:24 Lab results: Cardiac Enzymes 12/26/23 12/27/23 Range/Units 21:20 04:24 AST 22 (13-39) U/L Total Creatine Kinase 83 66 (30-223) U/L CK-MB (CK-2) 5.2 3.9 (0.6-6.3) ng/mL CK-MB (CK-2) Rel Index 6.2 H 5.9 H (0.00-2.50) % B-Natriuretic Peptide 84.0 60.0 (5-100) pg/mL Lipids 12/27/23 Range/Units 04:24 Triglycerides 301 H (0-149) mg/dL Cholesterol 126 L (140-200) mg/dL HDL Cholesterol 29 (23-92) mg/dL Cholesterol/HDL Ratio 4.3 (<5.0) CBC 12/26/23 12/27/23 Range/Units 21:20 04:24 RBC 4.96 4.65 (3.90-5.60) X10E6/uL Hgb 15.3 14.3 (13.0-17.0) g/dL Hct 43.8 40.7 (38.8-50.0) % Plt Count 304 298 (150-450) x10E3/uL Neut # (Auto) 6.6 5.1 (1.8-7.7) x10E3/uL Lymph # (Auto) 2.8 2.9 (1.00-4.8) x10E3/uL [place] # (Auto) 0.5 0.5 (0.0-0.8) x10E3/uL Eos # (Auto) 0.2 0.2 (0.0-0.45) x10E3/uL Baso # (Auto) 0.0 0.0 (0.0-0.2) x10E3/uL Comprehensive Metabolic Panel 12/26/23 12/27/23 Range/Units 21:20 04:24 Sodium 140 138 (136-145) mmol/L Potassium 4.7 4.1 (3.5-5.1) mmol/L Chloride 103 103 (98-107) mmol/L Carbon Dioxide 30.3 29.7 (21.0-31.0) mmol/L BUN 10 11 (7-25) mg/dL Creatinine 0.92 0.95 (0.70-1.30) mg/dL Glucose 130 H 156 H (70-100) mg/dL Calcium 9.3 9.2 (8.6-10.3) mg/dL Direct Bilirubin 0.10 (0.03-0.18) mg/dL Indirect Bilirubin 0.3 mg/dL AST 22 (13-39) U/L ALT 16 (7-52) U/L Alkaline Phosphatase 80 (34-104) U/L Total Protein 6.8 (6.4-8.9) gm/dL Albumin 4.3 (3.5-5.7) gm/dL Intake and Output 12/26/23 12/27/23 12/27/23 23:59 07:59 15:59 Intake Total 200 / 200 Balance 200 / 200 Intake: Oral 200 / 200 Other: # Unmeasured Voids 2 # Bowel Movements 0 Weight 90.9 kg 91.2 kg Date of Last Bowel Movement 12/26/23 12/26/23 12/26/23 Patient Weight 12/27/23 23:59 Weight 91.2 kg Lab 12/26/23 21:20 PT 11.1 INR 1.0 APTT 32.0 EKG Interpretations EKG EKG results cardiology: sinus rhythm Blocks, axis, hypertrophy, ST abn AV and intraventricular conduction: right bundle branch block (fixed/intermittent, complete/incomplete) Repolarization changes or abnormalities: nonspecific abnormality, ST segment, and/or T wave A&P - Cardiology (1) NSTEMI (non-ST elevated myocardial infarction): Code(s): I21.4 - Non-ST elevation (NSTEMI) myocardial infarction (2) T2DM (type 2 diabetes mellitus): Code(s): E11.9 - Type 2 diabetes mellitus without complications (3) Angina of effort: Code(s): I20.89 - Other forms of angina pectoris (4) Type 2 diabetes mellitus with hyperglycemia: Qualifiers: Diabetes mellitus mcfp insulin use: without emt intermediate use Qualified Code(s): E11.65 - Type 2 diabetes mellitus with hyperglycemia Code(s): E11.65 - Type 2 diabetes mellitus with hyperglycemia (5) Essential (primary) hypertension: Code(s): I10 - Essential (primary) hypertension (6) Elevated cholesterol: Code(s): E78.00 - Pure hypercholesterolemia, unspecified Plan See above, proceed with early invasive manage Documented By: Otoniel Greer DO 12/27/23 1520 Signed By: <Electronically signed by Otoniel Greer DO> 12/27/23 3[address] [facility] Work Phone: [phone]) 101-333410-16-[address] [facility] [facility]10-16-2024 History and physical note Author Tr Garcia [facility] December 26, 2023 11:41pm Note Date/Time December 26, 2023 9 :02pm [facility] [address] [place] [address] Hospitalist H&P Signed Patient: Jesse Garrison MR#: [id number] : 1950 Acct:[id number] Age/Sex: 73 / M Adm Date: 4 Loc: Room: [address] [place] [address] Type: ADM IN Attending Dr: Olga Bailon MD Copies to: DO Tr Uriarte DO Marwan Wassouf, MD Paula G Smith, [employer]~ HPI DATE OF EXAMINATION: 12/26/23 CHIEF COMPLAINT: chest pain HISTORY OF PRESENT ILLNESS: Mr. Garrison is a 73 year old male with a PMH of HTN, T2DM, HLD that went to his PCP today for intermittent chest pressure and was sent to the nearest emergency room to be evaluated. Patient states for the last week and a half he has had chest pressure across his anterior chest with accompanying shortness of breath. States that he would not know when it was going to happen, everything seemed aggravated, he would have to stop and rest and pressure will go away. States that the pressure made him feel like he had a cough. States when it happens it usually lasts about 10 minutes. He denies fever, chills, nausea or vomiting. States he is a daily cigar smoker, denies alcohol use or illicit drug use. [facility] chart review- CXR showed no acute cardiopulmonary process. EKG- SR with RBBB, mild ST depression in anterolateral leads. CBC and COAGs unremarkable. CMP with a glucose of 179, otherwise unremarkable. Troponin 1744, BNP 511. Pt was medicated with 162 aspirin and a heparin drip was started. Cardiology accepted the patient as consult. Pt was transferred here to [facility] the care of the hospitalist team. Review of Systems Review of Systems Review of systems: A 10 point review of systems was obtained, negative unless noted in the HPI or below. 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 Radiculopathy, cervical region (04/11/14) Personal history of colonic polyps Mucopurulent chronic bronchitis Melanoma in situ, unspecified (03/13/11) Malignant melanoma of cheek History of falling Essential (primary) hypertension Elevated prostate specific antigen (PSA) (06/11/18) Cigarette nicotine dependence in remission Basal cell carcinoma of skin, unspecified Surgical History (Updated 12/26/23 @ 21:08 by Sayda Stiles RN) H/O wrist surgery left H/O colonoscopy 2020 H/O cystoscopy 2019 H/O knee surgery 2009 Family History (Updated 12/26/23 @ 21:24 by Yamilex Verma APRN) Father [employer] workers' pneumoconiosis 77 yrs Cancer Lung Mother Diabetes 87 yrs Cancer Colon Sister Cancer Social History Marital Status: Smoking Status: Current every day smoker (cigars daily) Tobacco Type: cigars Substance Use Type: None Meds Medications and Allergies Allergies No Known Allergies Allergy (Verified 12/26/23 13:07) Home Medications metformin 1,000 mg tablet See Rx Instructions .Route .COMPLEX #90 tabs 07/28/23 [Rx Confirmed 12/26/23] lisinopril 20 mg tablet 20 mg PO DAILY 90 days #90 tabs 10/18/23 [Rx Confirmed 12/26/23] albuterol sulfate 90 mcg/actuation aerosol inhaler 2 puff inhalation Q6HR PRN shortness of breath or wheezing 30 days #8.5 grams 10/23/23 [Rx Confirmed 12/26/23] inhalational spacing device (Aerochamber Mini) #1 ea 10/23/23 [Rx Confirmed 12/26/23] atorvastatin 10 mg tablet 10 mg PO DAILY 90 days #90 tabs 10/31/23 [Rx Confirmed 12/26/23] Exam Physical Exam Vital Signs: Temp Pulse Resp BP Pulse Ox O2 Del Method 98.4 F 61 17 147/81 H 98 Room Air 12/26/23 20:37 12/26/23 20:37 12/26/23 20:37 12/26/23 20:37 12/26/23 20:37 12/26/23 20:37 Narrative: CONST- Appears well -developed and well nourished. Obese?BMI 29.6 HEAD - Normocephalic and atraumatic EENT-Sclera nonicteric, conjunctive are non-erythemic, moist oral mucosa, pharynx clear NECK-Supple, no cervical lymphadenopathy CARDIAC-normal rate, regular rhythm, S1 & S2. PULM-diminished without wheeze or rhonchi, RA, no accessory muscle use or cough noted ABD - Soft. Bowel sounds are normal. Softly distended. No tenderness EXTREM-no edema BLE calves, nontender SKIN- W/D good turgor MS- MAEX4 spontaneously with equal with equal strength NEURO- A&Ox3 speech clear and tongue midline, equal facial symmetry, no focal motor deficits PSYCH-Mood, affect, and behavior appropriate EUGENIO Risk Score EUGENIO Risk Score Predictor Historical: Age > 65 Years Old and 3 or more Risk Factors: FHx,HTN,elevated cholesterol,DM,active smoker Presentation: Recent (>/=24hr) Angina and Increased Cardiac Marker Score Risk Score (0-7): 4 Assessment & Plan Assessment/Plan (1) NSTEMI (non-ST elevated myocardial infarction): (2) Essential (primary) hypertension: (3) T2DM (type 2 diabetes mellitus): Plan NSTEMI?currently denies chest pressure ? Obtain stat EKG, troponin, coags, anti-Xa, BNP, BMP, CBC, total CPK, hepatic panel ? Will continue heparin drip per protocol ? Low-dose aspirin daily ? Consult cardiology?notified in ER, plan is for left heart cath tomorrow ? CBC, BMP, troponin, lipid panel, A1c in a.m. ? Nitro as needed ? N.p.o. at midnight ? Increase atorvastatin to 80mg daily Tobacco dependence?encouraged abstinence ? Tobacco cessation Chronic conditions HTN?lisinopril HLD?atorvastatin T2DM?fingersticks ACHS, SSI AC, hold metformin DVT PPx?heparin drip Diet order?1999 ADA, n.p.o. at midnight CODE STATUS?full code +++ +++ Yesterday, on Monday, the patient went fishing on a peer with one of his friends. With that level of physical activity he felt profound shortness of breath and fatigue and chest pressure and pain. 2 times while he was making that 100 yard walk he had to stop and rest because the symptoms were so bad. With stopping to rest his angina symptoms did gradually did get better. He decided to stop fishing and his friend had to drive him home because he was feeling so bad. He contemplated going to the [place] ER, but because he felt better he decided not to. He woke up this morning and continued to have that type of chest pressure and anginal symptomatology so he called his primary care provider. Right now he does not have any chest pain or pressure symptoms resting in bed. Heparin drip is infusing. Troponin levels at the [facility] were 1744, then 1535, and then here it is 1138. I personally saw this patient on the day of the encounter, reviewed the relevanthistory, performed the edge elements of the physical exam, and discussed and formulated the plan of care with the Nurse Practitioner, and I confirm the NursePractitioner's documentation as written. - - - Tr Garcia DO. Internal Medicine + Hospitalist attending physician. IP vs OBS Justification Based on differential dx, clinical care plan, and risk of adverse events, if untreated, in my clinical judgement this patient requires an acute care setting as: INPATIENT because of an expectation of an over 2 midnight stay. Estimated length of stay (# of days): 3 Documented By: Yamilex Verma APRN 12/26/232100 Signed By: <Electronically signed by MARY Verma> 12/26/232138 <Electronically signed by Tr Garcia DO> 12/26/23 2341 [facility] Work Phone: 1(511) 836-175810-15-2024 Evaluation note* Diagnosis Onset Date Resolution Status Admit Date Essential (primary) hypertension acute December 25 1:06pm Type 2 diabetes mellitus wit h hyperglycemia acute December 25 1:06pm Angina of effort deleted December 26, 2023 1:06pm Elevated cholesterol deleted 2023 1:06pm Essential (primary) hypertension acute December 25 8:31pm Type 2 diabetes mellitus wit h hyperglycemia acute December 25 8:31pm NSTEMI (non-ST elevated myocardial infarction) inactive December 112023 8:31pm Angina of effort deleted December 26, 2023 8:31pm Elevated cholesterol deleted 2023 8:31pm T2DM (type 2 diabetes mellitus) deleted December 25 8:31pm ASHD (arteriosclerotic heart disease) acute January 04 9:49am Bradycardia, drug induced acute January 05, 2024 9:49am Essential (primary) hypertension acute January 04 9:49am Obesity acute January 05, 2024 9:49am Type 2 diabetes mellitus wit h hyperglycemia acute January 04 9:49am ASHD (arteriosclerotic heart disease) acute February 20 8:24am Bradycardia, drug induced acute February 21, 2024 8:24am Dyspnea acute February 21, 2024 8:24am Essential (primary) hypertension acute February 20 024 8:24am Medicare annual wellness visit, subsequent acute February 21, 2024 8:24am Mucopurulent chronic bronchitis acute February 20 024 8:24am Obesity acute February 21, 2024 8:24am Screening PSA (prostate specific antigen) acute February 21, 2024 8:24am Type 2 diabetes mellitus wit h diabetic polyneuropathy acute February 21, 2024 8:24am Type 2 diabetes mellitus wit h hyperglycemia acute February 20 024 8:24am [facility] Work Phone: 1(391) 946-200509-04-2024 NotePatient Education Oncology Cancer Screening for Males A cancer screening is a test or exam that checks for cancer. Work with your health care provider tocreate a cancer screening schedule that protects your health. Who should have screening? All people who are male should be considered for screening of certain cancers, including colorectalcancer, prostate cancer, lung cancer, and skin cancer. [...] very early stages, before it spreads and becomesharder to treat and before you would start [...] blood in stool. It can be done athome with a kit. ? Fecal immunochemical test [...] old and continuing through 75 years old. Formales 76?85 years old, the decision to be screened should be based on a person's preferences, life expectancy, overall health, and prior screening history. Your health care provider may recommend screening before 45 years old. You will have tests every 1?10 years, depending on your results and the type of screening test. People at increased risk should start screening at an earlier age. Talk withyour health care provider about which screening test [...] old. Talk with your health care provider aboutwhether screening is right for you and, if [...] if anything looks unusual. Males with a vbnmld-hjjl-sjvlem risk for skin cancer may want to see a hospital cleaning specialist (group leader wafer polishing) for an annual body check. Where (more content not included)...[facility]01-24-2024 Evaluation note* Encounter Date Diagnosis Assessment Notes Treatment Notes Treatment Clinical Notes Mar, Hyperlipemia (ICD-10 - E78.5) [facility] Other 12-08-2023 Evaluation note* Encounter Date Diagnosis Assessment Notes Treatment Notes Treatment Clinical Notes Feb, Medicare annual wellness visit, subsequent [...] cerebrovascular and cardiovascular disease. Feb, Calculus of gallblad shelley without cholecystitis without obstruction (ICD-10 - K80.20) Asymptomatic Feb, Adenomatous polyp of descending colon (ICD-10 - D12.4) Denies change in bowel habits as well as any melena or hematochezia. He is UTD w/ surveillance scopes. Feb, Transitional cell carcinoma determined by biopsy of bladder (ICD-10 - C67.9) He denies change in urinary habits. He denies hematuria. f/u Urology Feb, Primary osteoarthrit is of right foot (ICD-10 - M19.071) Discussed conservative treatment. Offered referral to Podiatry but he declines Feb, Cigarette nicotine dependence in remission (ICD-10 - F17.211) Continue abstinence Offered LDCT but he declined Feb, Screening PSA (prost ate specific antigen) (ICD-10 - Z12.5) Yearly AGUILA and PSA [facility] Other 07-28-2023 Evaluation note* Encounter Date Diagnosis Assessment Notes Treatment Notes Treatment Clinical Notes Sep, Primary hypertension (ICD-10 - I10) This patient is instructed to consume a healthy, low-fat, low-salt diet. They are also encouraged to continue exercise to achieve/maintain a normal BMI. Sep, Type 2 diabetes [...] in remission (ICD-10 - F17.211) Continue abstinence [facility] Other 04-26-2023 Evaluation note* Encounter Date Diagnosis Assessment Notes Treatment Notes Treatment Clinical Notes Jun, Bilateral impacted cerumen (ICD-10 - H61.23) Cerumen removed w/o complications. Water picc and forceps utilized to clear EAC. TM's intact and translucent following the procedure Jun, Primary hypertension (ICD-10 - I10) This patient is instructed to consume a healthy, low-fat, low-salt diet. They are also encouraged to continue exercise to achieve/maintain a normal BMI. [facility] Other Evaluation noteNo InformationNoChildren[facility] Other Evaluation note* Diagnosis Onset Date Resolution Status Chronic kidney disease acute Cough acute Elevated cholesterol acute Essential (primary) hypertension acute Mucopurulent chronic bronchitis acute Type 2 diabetes mellitus with diabetic polyneuropathy acute Type 2 diabetes mellitus with hyperglycemia acute Angina of effort acute Elevated cholesterol acute Essential (primary) hypertension acute Type 2 diabetes mellitus with hyperglycemia acute Angina of effort acute Elevated cholesterol acute Essential (primary) hypertension acute NSTEMI (non-ST elevated myocardial infarction) acute T2DM (type 2 diabetes mellitus) acute Type 2 diabetes mellitus with hyperglycemia acute [facility] Work Phone: Evaluation note* Diagnosis NSTEMI (non-ST elevated myocardial infarction) (Multi) Acute myocardial infarction, subendocardial infarction, episode of care unspecified History of percutaneous coronary intervention Diabetes mellitus type II, non insulin dependent (Multi) Type II or unspecified type diabetes mellitus without mention of complication, not stated as uncontrolled Body mass index (BMI) 29.0-29.9, adult Cigar smoker documented in this encounter [facility] Work Phone: Evaluation note* Diagnosis ASHD (arteriosclerotic heart disease) Coronary atherosclerosis of unspecified type of vessel, [place] or graft NSTEMI (non-ST elevated myocardial infarction) (Multi) Acute myocardial infarction, subendocardial infarction, episode of care unspecified History of percutaneous coronary intervention Cigar smoker Diabetes mellitus type II, non insulin dependent (Multi) Type II or unspecified type diabetes mellitus without mention of complication, not stated as uncontrolled Hyperlipidemia, unspecified hyperlipidemia type BMI 30.0-30.9,adult documented in this encounter [facility] Work Phone: History general Narrative - Reported* Type Description Date Medical History Malignant melanoma of cheek Medical History Primary hypertension Medical History Controlled type 2 di abetes mellitus with hyperglycemia, without long-term current use of insulin Medical History Calculus of gallblad shelley without cholecystitis without obstruction Medical History Adenomatous polyp of descending colon Medical History Cigarette nicotine dependence in remission Medical History Transitional cell ca rcinoma determined by biopsy of bladder Surgical History knee surgery 2009 Surgical History COLONOSCOPY 2020 Surgical History CYSTOSCOPY WITH BIOP SY OF BLADDER, TRANSURETHRAL RESECTION OF BLADDER TUMOR (TURBT), AND RETROGRADE PYELOGRAPHY 2019 Hospitalization History SEE SURGICAL [facility] Other History general Narrative - Reported* Type Description Date Medical History Malignant melanoma of cheek Medical History Primary hypertension Medical History Controlled type 2 di abetes mellitus with hyperglycemia, without long-term current use of insulin Medical History Calculus of gallblad shelley without cholecystitis without obstruction Medical History Adenomatous polyp of descending colon Medical History Cigarette nicotine dependence in remission Medical History Transitional cell ca rcinoma determined by biopsy of bladder Surgical History knee surgery 2009 Surgical History COLONOSCOPY, repeat 5 years 202 1 Surgical History CYSTOSCOPY WITH BIOP SY OF BLADDER, TRANSURETHRAL RESECTION OF BLADDER TUMOR (TURBT), AND RETROGRADE PYELOGRAPHY 2019 Hospitalization History SEE SURGICAL [facility] Other History general Narrative - Reported* Type Description Date Medical History Malignant melanoma of cheek Medical History Primary hypertension Medical History Controlled type 2 di abetes mellitus with hyperglycemia, without long-term current use of insulin Medical History Calculus of gallblad shelley without cholecystitis without obstruction Medical History Adenomatous polyp of descending colon Medical History Cigarette nicotine dependence in remission Medical History Transitional cell ca rcinoma determined by biopsy of bladder Surgical History knee surgery 2009 Surgical History COLONOSCOPY, (repeat 5 years) 2 021 Surgical History CYSTOSCOPY WITH BIOP SY OF BLADDER, TRANSURETHRAL RESECTION OF BLADDER TUMOR (TURBT), AND RETROGRADE PYELOGRAPHY 2019 Hospitalization History SEE SURGICAL [facility] Other Hospital Discharge instructions Additional Instructions DISCHARGE INSTRUCTIONS FOR ANGIOPLASTY/CORONARY/PERIPHERAL/STENT IMPLANT FOR ADULT ANTICOAGULATION -Since the greatest risk of a blood clot forming with the stent occurs in the first 2-3 weeks after implantation, you will need to take anticoagulants for at least 12-18 months. ANTICOAGULATION MEDICATION Aspirin 81mg once a day, Ticagrelor (Brilinta) 90mg twice a day STATIN MEDICATION Atorvastatin (Lipitor) 80 mg Drug-Eluting Stent (ASHUTOSH) DO NOT discontinue Brilinta/Aspirin during the first few months regardless of what you are advised by your family doctor or pharmacist, without first calling the piercing machine operator who implanted the stent. If you require pain relief during this time, please take only ACETAMINOPHEN (TYLENOL)- NO additional aspirin or ibuprofen. DISCHARGE ACTIVITIES ARE FOLLOWS: First week after discharge: -Take it easy at home, no strenuous activity. -Do not lift or pull objects over 10-15 pounds, including children, and groceries for four weeks. If puncture site is at wrist do NOT lift more than three pounds for three days. - May walk up stairs. -May shower. -No excessive scrubbing of the affected site (groin). -May ride in car. -May resume sexual intercourse after 1-2 weeks. -No MRI for 12 days. -May drive in 4-7 days. -If puncture site is at the wrist do not manipulate the wrist for 24 hours, and no soaking wrist for three days. Second Week: -May take a bath -May start walking 3 times a week for 15-20 minutes at a leisurely pace. You should be able to carry on a conversation comfortably without feeling winded. -No strenuous activity as in jogging, running, weight lifting, stair steppers, etc. until the piercing machine operator approves these activities. Check with the piercing machine operator on your first follow-up visit. CALL YOUR SWIMMING POOL PLASTERER HELPER: -If bleeding should occur from the catheter insertion site- apply pressure to the site then immediately call us. -Report any fever, redness, drainage, increased swelling, or firmness at the catheter insertion site. Some bruising or slight swelling may be present at the time of discharge. -Should arm or leg become cold, numb, white, or blue, contact the piercing machine operator immediately. -IF you should experience episodes of angina, e.g. chest discomfort, heaviness, tightness, pressure burning with or without radiation to the neck, jaw, arms or back- use 1 Nitrostat tablet under your tongue every 5-10 minutes and up to three tablets. IF NO RELIEF, CALL 911 or GO TO THE NEAREST EMERGENCY ROOM. -Please notify our office if you have recurrent angina. -Cardiac Rehab Education Provided. Participation in the Cardiopulmonary Rehabilitation program is recommended. The attending piercing machine operator or a nurse clinician should provide you with specific instructions regarding activity, diet, medications, and further follow up for you. Follow the medication instructions provided on your discharge. If the dosages and instructions on this sheet differ from the dosage and instructions on the bottle, follow the instructions on the bottle. [facility] is not responsible for incorrect prescription information provided by the patient during their visit. Do not stop your medications without consulting your health care provider. Please take the list with you to your next doctor's appointment.[facility] Work Phone: Summary Purpose Family History No Family History Records Found Relationship Condition Age at Onset Recorded Date/T gee father [employer] workers' pneumoconiosis Unknown Unknown Malignant neoplasm Unknown mother Diabetes mellitus Unknown sister Unknown Advance Directives No Advanced Directives Records Found Advance Directive Response Recorded Date/ Time Advance Directives No December 18, 2018 7:37am Advance Directive Response Recorded Date/ Time Advance Directives No December 18, 2018 6:37am Chief Complaint and Reason for Visit Chief Complaint 4 month follow up chest pressure, SOB nostem enstemi Reason for Visit Chronic kidney disea se Cough Elevated cholesterol Essential (primary) hypertension Mucopurulent chronic bronchitis Type 2 diabetes mellitus with diabetic polyneuropathy Type 2 diabetes mellitus with hyperglycemia Angina of effort Elevated cholesterol Essential (primary) hypertension Type 2 diabetes mellitus with hyperglycemia Angina of effort Elevated cholesterol Essential (primary) hypertension NSTEMI (non-ST elevated myocardial infarction) T2DM (type 2 diabetes mellitus) Type 2 diabetes mellitus with hyperglycemia Chief Complaint Admit Date chest pressure, SOB December 26, 2023 1 :06pm nostem enstemi December 26, 2023 8 :31pm Amb Documentation December 29, 2023 9 :37am Amb Documentation December 29, 2023 2 :52pm CC Adult Risk Stratification December 2:49pm Nstemi-HIGH RISK January 05, 2024 9 :49am wellness-HIGH RISK February 21, 2024 8:24am R06.09 I25.10 E11.65 March 21, 2024 7 :29am Reason for Visit Admit Date Essential (primary) hypertension December 26, 2023 1:06pm Type 2 diabetes mellitus with hyperglyce carmelina December 26, 2023 1:06pm Angina of effort December 26, 2023 1 :06pm Elevated cholesterol December 26, 2023 1:06pm Essential (primary) hypertension December 26, 2023 8:31pm Type 2 diabetes mellitus with hyperglyce carmelina December 26, 2023 8:31pm NSTEMI (non-ST elevated myocardial infar ction) December 26, 2023 8:31pm Angina of effort December 26, 2023 8 :31pm Elevated cholesterol December 26, 2023 8:31pm T2DM (type 2 diabetes mellitus) December 26, 2023 8:31pm ASHD (arteriosclerotic heart disease) Oc tob2023 9:49am Bradycardia, drug induced January 05, 2024 9:49am Essential (primary) hypertension January 05, 2024 9:49am Obesity January 05, 2024 9 :49am Type 2 diabetes mellitus with hyperglyce carmelina January 05, 2024 9:49am ASHD ([facility]iosclerotic heart disease) [facility] 8:24[facility] Bradycardia, drug induced February 21, 2024 8:24am Dyspnea February 21, 2024 8:24am Essential (primary) hypertension [facility] 2023 8:24am Medicare annual wellness visit, [facility] February 21, 2024 8:24am Mucopurulent chronic bronchitis February 21, 2024 8:24am Obesity February 21, 2024 8:24am Screening PSA (prostate specific antigen ) February 21, 2024 8:24am Type 2 diabetes mellitus with diabetic p olyneuropathy February 21, 2024 8:24am Type 2 diabetes mellitus with hyperglyce [facility] February 21, 2024 8:24am Additional Source Comments (unrecognized sect ion and content) No Status Records FoundNo Status Records FoundNo Status Records FoundNo Status Records FoundNo Status Records Found INFORMATION SOURCE (unrecogn ized section and content) DATE CREATED AUTHOR 03/09/2022 [facility] DATE CREATED AUTHOR AUTHOR'S ORGANIZ ATION 11/21/2023 [employer] [facility] DATE CREATED AUTHOR AUTHOR'S ORGANIZ ATION 11/28/2023 [place] [email or web address] [facility] DATE CREATED AUTHOR AUTHOR'S ORGANIZ ATION 05/27/2024 [facility] DATE CREATED AUTHOR AUTHOR'S ORGANIZ ATION 08/20/2024 [facility] REASON FOR VISIT (unrecogniz ed section and content) Reason Comments Follow-up tcm Reason Comments Follow-up 6month follow up for nstemi Specialty Diagnoses / Procedures Referred By Shamika terry Referred To Contact Cardiology Diagnoses NSTEMI (non-ST elevated myocardial infarction) (Multi) Procedures Follow Up In Cardiology Ar Greer, DO [address] [facility] [address] [place] [address] Phone: tel: fax: Ar Greer, DO [address] [place] [address] Phone: tel: fax: Referral ID Status Reason Start Date Expiration Date V isits Requested Visits Authorized [id number] Authorized 01/10/2024 01/09/2025 1 1 Care Teams (unrecognized sec tion and content) Team Status: Active Member Role Status Dates Antoni Cohn DO Primary Care Provider Active Team Status: Inactive Member Role Status Dates Antoni Cohn DO Primary Care Provide r, Attending Provider Active Start: October 18, 2023 End: October 18, 2023 Team Status: Active Member Role Status Dates Antoni Cohn DO Primary Care Provide r, Attending Provider Active Start: October 19, 2023 Team Status: Active Member Role Status Dates Antoni Cohn DO Primary Care Provider Active Start: November 08, 2023 LINO May Attending Provider Active Start: November 08, 2023 Team Status: Inactive Member Role Status Dates Antoni Cohn DO Primary Care Provide r, Attending Provider Active Start: December 26, 2023 End: December 26, 2023 Team Status: Inactive Member Role Status Dates Antoni Cohn DO Primary Care Provider Active Start: December 26, 2023 End: December 28, 2023 Tr Garcia DO Admit Provider Active Start: December 26, 2023 End: December 28, 2023 Olga Bailon MD Attending Provider Active St art: December 26, 2023 End: December 28, 2023 Radar Engineer Relationship Specialty Start Date End Date Antoni Cohn DO [address] [place] [address] PCP - General Internal Medicine 01/10/24 Christen Brandt RN Care Content Checker 12/28/23 Ar Greer DO [address] [place] [address] Consulting Physician Cardiology 01/10/24 Team Status: Active Member Role Status Dates Antoni Cohn DO Primary Care Provide r, Attending Provider Active Start: December 26, 2023 Team Status: Active Member Role Status Dates Antoni Cohn DO Primary Care Provider Active Start: December 29, 2023 Christen Dunbar CMA Attending Provider Active Start: December 29, 2023 Team Status: Active Member Role Status Dates Antoni Cohn DO Primary Care Provide r, Attending Provider Active Start: January 04, 2024 Team Status: Inactive Member Role Status Dates Antoni Cohn DO Primary Care Provide r, Attending Provider Active Start: January 05, 2024 End: January 05, 2024 Team Status: Inactive Member Role Status Dates Antoni Cohn DO Primary Care Provide r, Attending Provider Active Start: February 21, 2024 End: February 21, 2024 Team Status: Inactive Member Role Status Dates Antoni Cohn DO Primary Care Provide r, Attending Provider Active Start: March 21, 2024 End: March 21, 2024 Radar Engineer Relationship Specialty Start Date End Date Antoni Cohn DO [address] [place] [address] PCP - General Internal Medicine 01/10/24 Ar Greer DO [address] [place] [address] Consulting Physician Cardiology 01/10/24 FOR RECORDS PERTAINING TO PATIENTS WHO ARE [...] BE BASED ON THE PRIMARY CLINICAL RECORDS. [facility] [employer] [facility]. provides no warranty or guarantee of the accuracy or completeness of information in this document.
--- NOTE | 2024-08-24 15:26 | CT_ITS ---
[address] [address] Patient Name: ELI GIFFORD MRN: [id number] date: 1950 Sex: M Assigned Patient Location: ED.MAIN Current Patient Location: ED.MAIN Accession/Order Number: [id number] Exam Date: 08/24/2024 16:18 Report Date: 08/24/2024 16:25 At the request of: EFREN GUZMAN MD Procedure: CT cervical spine wo con Unenhanced head CT TECHNIQUE: Contiguous axial imaging of the head. The CT exam was performed using one or more the following dose reduction techniques: Automated exposure control, adjustment of the MA and/or Kv according to patient size, or use of the iterative reconstruction technique. COMPARISON: None HISTORY: Head injury. Fell. VENTRICLES: Within normal limits ATROPHY: None BRAIN PARENCHYMA: Adequate amin-white matter differentiation identified. HEMORRHAGE: None HERNIATION: No mass effect or herniation INFARCTION: No recent vascular distribution infarction is seen. EXTRA-AXIAL FLUID COLLECTIONS None MIDBRAIN: Unremarkable KARTHIK: Unremarkable MEDULLA: Unremarkable SINUSES: Unremarkable ORBITS: Grossly unremarkable MASTOIDS: Unremarkable BONY STRUCTURES Intact ADDITIONAL FINDINGS: Left frontal scalp hematoma CT/CT head/brain wo con IMPRESSION: No acute intracranial findings. Left frontal scalp hematoma. No underlying fracture. CT Cervical Spine withoutcontrast TECHNIQUE: Axial imaging with 2-D and 3-D reconstruction. The CT exam was performed using one or more the following dose reduction techniques: Automated exposure control, adjustment of the MA and/or Kv according to patient size, or use of the iterative reconstruction technique. COMPARISON: None HISTORY: Head injury POST SURGERY CHANGES: None BONY ALIGNMENT: Straightening BONY SPINAL CANAL: Patent central bony canal FRACTURE: None BONY LESIONS: None SOFT TISSUES: Unremarkable DEGENERATIVE CHANGES: Degeneration greatest at the C5-6 level. LUNG APICES: Unremarkable ADDITIONAL FINDINGS: IMPRESSION: No acute process Impression dictated by: Les Wells M.D. 08/24/2024 4:25 PM Dictation Location: [facility] Electronically authenticated by: [id number] Y Date: 08/24/2024 16:25
--- NOTE | 2024-08-24 15:26 | XR_ITS ---
[place] [id number] Patient Name: ELI GIFFORD MRN: [id number] date: 1950 Sex: M Assigned Patient Location: ER Current Patient Location: ED.MAIN Accession/Order Number: [id number] Exam Date: 08/24/2024 15:58 Report Date: 08/24/2024 16:00 At the request of: EFREN GUZMAN MD Procedure: XR wrist LT min 3V 2 views left forearm plain film COMPARISON: None HISTORY: Fell injuring left wrist. ACUTE FINDINGS: None DEGENERATIVE CHANGE: Unremarkable SOFT TISSUE FINDINGS: Unremarkable JOINT EFFUSION: None POSTOP CHANGES: None BONY MINERALIZATION: Adequate XR/XR forearm LT 2V IMPRESSION: No acute displaced fracture 3 views left wrist Mild degeneration. Adequate alignment. No acute displaced fracture. Unremarkable soft tissues. IMPRESSION: No acute displaced fracture. Impression dictated by: Les Wells M.D. 08/24/2024 4:00 PM Dictation Location: [facility] Electronically authenticated by: [id number] Y Date: 08/24/2024 16:00
--- NOTE | 2024-08-24 15:26 | XR_ITS ---
[place] [id number] Patient Name: ELI GIFFORD MRN: [id number] date: 1950 Sex: M Assigned Patient Location: ER Current Patient Location: ED.MAIN Accession/Order Number: [id number] Exam Date: 08/24/2024 15:58 Report Date: 08/24/2024 16:00 At the request of: EFREN GUZMAN MD Procedure: XR wrist LT min 3V 2 views left forearm plain film COMPARISON: None HISTORY: Fell injuring left wrist. ACUTE FINDINGS: None DEGENERATIVE CHANGE: Unremarkable SOFT TISSUE FINDINGS: Unremarkable JOINT EFFUSION: None POSTOP CHANGES: None BONY MINERALIZATION: Adequate XR/XR wrist LT min 3V IMPRESSION: No acute displaced fracture 3 views left wrist Mild degeneration. Adequate alignment. No acute displaced fracture. Unremarkable soft tissues. IMPRESSION: No acute displaced fracture. Impression dictated by: Les Wells M.D. 08/24/2024 4:00 PM Dictation Location: [employer] Electronically authenticated by: [id number] Y Date: 08/24/2024 16:00
--- NOTE | 2024-08-24 15:26 | CT_ITS ---
[address] [address] Patient Name: ELI GIFFORD MRN: [id number] date: 1950 Sex: M Assigned Patient Location: ED.MAIN Current Patient Location: ED.MAIN Accession/Order Number: [id number] Exam Date: 08/24/2024 16:18 Report Date: 08/24/2024 16:25 At the request of: EFREN GUZMAN MD Procedure: CT cervical spine wo con Unenhanced head CT TECHNIQUE: Contiguous axial imaging of the head. The CT exam was performed using one or more the following dose reduction techniques: Automated exposure control, adjustment of the MA and/or Kv according to patient size, or use of the iterative reconstruction technique. COMPARISON: None HISTORY: Head injury. Fell. VENTRICLES: Within normal limits ATROPHY: None BRAIN PARENCHYMA: Adequate amin-white matter differentiation identified. HEMORRHAGE: None HERNIATION: No mass effect or herniation INFARCTION: No recent vascular distribution infarction is seen. EXTRA-AXIAL FLUID COLLECTIONS None MIDBRAIN: Unremarkable KARTHIK: Unremarkable MEDULLA: Unremarkable SINUSES: Unremarkable ORBITS: Grossly unremarkable MASTOIDS: Unremarkable BONY STRUCTURES Intact ADDITIONAL FINDINGS: Left frontal scalp hematoma CT/CT cervical spine wo con IMPRESSION: No acute intracranial findings. Left frontal scalp hematoma. No underlying fracture. CT Cervical Spine withoutcontrast TECHNIQUE: Axial imaging with 2-D and 3-D reconstruction. The CT exam was performed using one or more the following dose reduction techniques: Automated exposure control, adjustment of the MA and/or Kv according to patient size, or use of the iterative reconstruction technique. COMPARISON: None HISTORY: Head injury POST SURGERY CHANGES: None BONY ALIGNMENT: Straightening BONY SPINAL CANAL: Patent central bony canal FRACTURE: None BONY LESIONS: None SOFT TISSUES: Unremarkable DEGENERATIVE CHANGES: Degeneration greatest at the C5-6 level. LUNG APICES: Unremarkable ADDITIONAL FINDINGS: IMPRESSION: No acute process Impression dictated by: Les Wells M.D. 08/24/2024 4:25 PM Dictation Location: [facility] Electronically authenticated by: [id number] Y Date: 08/24/2024 16:25
[2024-08-24] MEDS: ACETAMINOPHEN 325 MG TABLET 650 MG PO (15:37)
[2024-08-24] MEDS: ADACEL DIPH,PERTUSS(ACELL),TET VAC/PF 0.5 ML ADULT SYRINGE IM (16:35)
--- NOTE | 2024-08-24 18:10 | ED.HEATRA1 ---
HPI HPI - Head Injury General Chief complaint: Head Injury Stated complaint: FALL; HEAD INJURY, L WRIST PAIN Time Seen by Provider: 08/24/24 15:19 Source: patient Mode of arrival: walk-in Limitations: no limitations History of Present Illness HPI Narrative: The patient is a 74-year-old male with history of coronary artery disease he is taking Brilinta. Is coming to the ER after he fell and hit to the left side of his head. This happened just before arrival apparently he just tripped he did not have any dizziness. The patient did not pass out or lose consciousness and he does not remember what happened to his left arm but he is complaining of his left arm hurting to mostly at the left forearm. He denies falling and hitting something specific with the left arm as he is not sure but he remember hitting his left side of the head with a bucket on the floor The patient right now just complaining of some pain at the left forehead and left arm Related Data Home Medications ?Medication ?Instructions ?Recorded ?Confirmed albuterol sulfate 90 mcg/actuation 2 puff inhalation Q6H PRN 12/26/23 08/24/24 aerosol inhaler shortness of breath or wheezing atorvastatin 10 mg tablet 10 mg PO .qhs 12/26/23 08/24/24 lisinopril 20 mg tablet 20 mg PO DAILY 12/26/23 08/24/24 metformin 1,000 mg tablet 1,000 mg PO DAILY 12/26/23 08/24/24 glimepiride 1 mg tablet mg 08/24/24 ticagrelor 90 mg tablet (Brilinta) 90 mg PO Q12H 08/24/24 08/24/24 ticagrelor 90 mg tablet (Brilinta) mg 08/24/24 Allergies Allergy/AdvReac Type Severity Reaction Status Date / Time No Known Drug Allergies Allergy Verified 12/26/23 13:43 Opioid HPI Opioid Management Most Recent Pain and Opioid Data: Last Pain Scale 10 Today, 15:18 Last MAR Pain Assessment Today, 15:37 Review of Systems ROS Status of ROS 10 or more systems reviewed and unremarkable except as noted in history and below PFSH PFSH Social History Little interest or pleasure in doing things: not at all Feeling down, depressed, or hopeless: not at all Exam Narrative Exam Narrative: Nurses notes and vital signs reviewed and patient is not hypoxic. General: Well-appearing and in no apparent distress. Skin: Warm, dry, no pallor noted. No rash. Head: Normocephalic, the patient have a left forehead subcutaneous hematoma from the trauma there is a abrasion almost 2 mm on top of it Neck: Supple, non-tender. Eye: Pupils are equal, round and EOMI. No scleral icterus. Ears, Nose, Mouth, and Throat: TM are clear, no nasal mucosal hypertrophy. Oral mucosa is moist, no posterior oropharynx erythema, uvula is mid-line Cardiovascular: Regular Rate and Rhythm without murmur, gallop or rub. Respiratory: No accessory muscle use or respiratory distress. Lungs are clear to auscultation, no wheezing, rales or rhonchi Chest Wall: no tenderness Back: No midline thoracic or lumbar vertebral tenderness. No CVA tenderness Musculoskeletal: The patient have a good radial pulse in the left arm in addition to good capillary refill but he is complaining of lateral almost distal third tenderness on palpation of the ulnar. There is no ecchymosis that is obvious and there is no significant swelling and the patient is not tender at the wrist GI: Abdomen is soft, non-distended. Normal bowel sounds. No masses appreciated. No tenderness to palpation. No rebound, guarding, or rigidity noted. Neurological: A&O x4. No cranial nerve dysfunction observed. No truncal ataxia. Moves all extremities. Sensation intact. Psychiatric: Cooperative and interactive. Normal mood and affect. Constitutional Vital Signs, click to edit/add: Last Vital Signs Temp 99.0 F 08/24/24 15:18 Pulse 62 08/24/24 15:18 Resp 18 08/24/24 15:18 BP 155/72 H 08/24/24 15:18 Pulse Ox 99 08/24/24 15:18 O2 Del Method Room Air 08/24/24 15:18 Course Vital Signs Vital signs: Vital Signs Temperature 99.0 F 08/24/24 15:18 Pulse Rate 62 08/24/24 15:18 Respiratory Rate 18 08/24/24 15:18 Blood Pressure 155/72 H 08/24/24 15:18 Pulse Oximetry 99 08/24/24 15:18 Oxygen Delivery Method Room Air 08/24/24 15:18 Temperature 99.0 F 08/24/24 15:18 Pulse Rate 62 08/24/24 15:18 Respiratory Rate 18 08/24/24 15:18 Blood Pressure 155/72 H 08/24/24 15:18 Pulse Oximetry 99 08/24/24 15:18 Oxygen Delivery Method Room Air 08/24/24 15:18 MDM - Head Injury MDM Narrative Medical decision making narrative: The patient CT head and CT cervical spine showed no acute pathology And the patient had Tylenol for the pain in addition to tetanus booster The patient also had x-ray of the forearm and x-ray of the wrist they all did not show any acute pathology Josue wrap applied to the forearm The patient discharged with head injury instructions and to come back to the ER in case of any nausea vomiting or increasing headache The patient is to follow up with primary care physician in next 2-3 days or to return to the emergency department should any of the signs or symptoms worsen or new symptoms develop. The patient agrees with the following Diagnosis and Treatment plan and the patient will be discharged home. Discharge Plan Discharge Chief Complaint: Head Injury Clinical Impression: Acute head trauma, Traumatic hematoma of forehead, Contusion of forearm Patient Disposition: Home, Self-Care Time of Disposition Decision: 16:41 Condition: Good Prescriptions / Home Meds: No Action lisinopril 20 mg tablet 20 mg PO DAILY metformin 1,000 mg tablet 1,000 mg PO DAILY albuterol sulfate 90 mcg/actuation HFA aerosol inhaler 2 puff INHALATION Q6H PRN (Reason: shortness of breath or wheezing) atorvastatin 10 mg tablet 10 mg PO .qhs glimepiride 1 mg tablet ticagrelor [Brilinta] 90 mg tablet ticagrelor [Brilinta] 90 mg tablet 90 mg PO Q12H Print Language: Slovenian Instructions: Head Injury (DC), Contusion in Adults (ED) Referrals: Antoni Cohn DO [Primary Care Provider, Internal Medicine] - 1 week Discharge Date/Time: 08/24/24 16:50
== END 2024-08-24 16:50 | disposition home or self-care (01) ==
PROVIDERS: Emergency Provider Emergency Medicine; PCP Internal Medicine
DX: S00.83XA Contusion of other part of head, initial encounter (principal); S50.12XA Contusion of left forearm, initial encounter; S00.81XA Abrasion of other part of head, initial encounter; W01.0XXA Fall on same level from slipping, tripping and stumbling without subsequent striking against object, initial encounter; I25.10 Atherosclerotic heart disease of native coronary artery without angina pectoris; Z79.899 Other long term (current) drug therapy; Z23 Encounter for immunization
CPT/HCPCS: 70450; 72125; 73090; 73110; 90471; 90715; 99284

== ENCOUNTER 2024-12-09 09:49 | Outpatient (OUT) | payer MEDICARE, OTHER, SELFPAY ==
--- OUTSIDE RECORDS SUMMARY | 2024-12-05 20:28 | XMS_ITS ---
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 Name Role Phone AR GREER Attending Unavailable ANTONI COHN Primary Care Unavailable AR GREER Attending Unavailable AR GREER Referring Unavailable ANTONI COHN Primary Care Unavailable Jagruti Oro Consulting Unavailable Elvis Wilkinson Admitting Unavailable Antoni Cohn Primary Care Unavailable Michelle Aguayo Attending Unavailable Jagruti Oro Consulting Unavailable Otoniel Greer Consulting Unavailable Samy Rust Consulting Unavailable Minnie Valadez Consulting Unavailable Yissel Verma Consulting Unavailable Janneth Gordon Consulting Unavailable Brittney Murray Consulting Unavailable Antoni Cohn Primary Care Unavailable Ann Torres Attending Unavailable Mane Sommer Consulting Unavailable Robert Petit Admitting Unavailable Adelso Brito Consulting Unavailable Asaad, Imad Consulting Unavailable Christen Dumont Consulting Unavailable Mocnho Stein Consulting Unavailable Misramin, Jagruti Consulting Unavailable Preethi, Jagruti Consulting Unavailable Otoniel Greer Consulting Unavailable Marcie, Samy Consulting Unavailable Minnie Valadez Consulting Unavailable Yissel Verma Consulting Unavailable Gordon, Janneth Consulting Unavailable Brittney Murray Consulting Unavailable Antoni Cohn Primary Care Unavailable Preethi, Jagruti Consulting Unavailable Olga Bailon Attending Unavailable Tr Garcia Admitting Unavailabl Otoniel Neville Consulting Unavailable Rust, Pablo Consulting Unavailable Ar Espino Consulting Unavail able Trabluda, Shivaf Consulting Unavailable Melvin Knott Consulting Unavailab Yissel Lemon Consulting Unavailable Gordon, Janneth Consulting Unavailable ShaiCitlalyHalshyam Park Consulting Unavailab Ronnie Romero Consulting Unavailable Brittney Murray Consulting Unavailable Antoni Cohn Attending Unavailable Lalit, Antoni Primary Care Unavailable Antoni Cohn Admitting Unavailable JERECHUCK HEWITT Referring Unavailabl e PROVIDER, UNKNOWN Attending Unavailable PROVIDER, UNKNOWN Admitting Unavailable ANTONI COHN Primary Care Unavailable Randall MOLINA Attending Unavailable Randall MOLINA Admitting Unavailable Randall MOLINA Attending Unavailable PROBLEMS DATE TYPE CONDITION / CODE ATTENDING STATUS [facility] 12/05/2024 Unknown Dyspnea, unspeci fied / R06.00(ICD-10) [facility] 12/05/2024 Unknown Other chest pain / R07.89(ICD-10) [facility] 12/05/2024 Unknown Anemia, unspecif ied / D64.9(ICD-10) [facility] 12/05/2024 Unknown Gastroduodenitis , unspecified, with bleeding / K29.91(ICD-10) [facility] 12/05/2024 Unknown Type 2 diabetes mellitus without complications / E11.9(ICD-10) Olivier, Mohamad Active [facility] 12/05/2024 Unknown Gastrointestinal hemorrhage, unspecified / K92.2(ICD-10) [facility] 12/05/2024 Unknown Acute posthemorr hagic anemia / D62(ICD-10) [facility] 12/05/2024 Unknown Atherosclerotic heart disease of [place] coronary artery without angina pectoris / I25.10(ICD-10) [facility] 12/05/2024 Unknown Type 2 diabetes mellitus with diabetic polyneuropathy / E11.42(ICD-10) [facility] 11/29/2024 Unknown penitentiary (curre nt) use of antithrombotics/antipl atelets / Z79.02(ICD-10) [facility] 11/29/2024 Unknown Melena / K92.1(ICD-10) [facility] Unknown Essential (prima ry) hypertension / I10(ICD-10) [facility] 11/29/2024 Unknown Presence of [place] nary angioplasty implant and graft / Z95.5(ICD-10) [facility] 11/29/2024 Unknown Hyperlipidemia, unspecified / E78.5(ICD-10) [facility] 10/14/2024 Active Unspecified osteoarthritis, unspecified site / M19.90(ICD-10) Unknown Active [facility] 07/10/2024 Admitting Diagnosis Hyperlipidemia, unspecified / E78.5(ICD-10) [facility] 07/10/2024 Admitting Diagnosis Atherosclerotic heart disease of [place] coronary artery without angina pectoris / I25.10(ICD-10) [facility] 07/10/2024 Admitting Diagnosis Body mass index (BMI) 30.0-30.9, adult / Z68.30(ICD-10) [facility] 01/10/2024 Admitting Diagnosis Type 2 diabetes mellitus without complications / E11.9(ICD-10) [facility] 03/21/2024 Unknown Other forms of d yspnea / R06.09(ICD-10) Antoni Cohn [facility] 01/10/2024 Admitting Diagnosis Type 2 diabetes mellitus without complications (Multi) / E11.9(ICD-10) [facility] 01/10/2024 Admitting Diagnosis Coronary angioplasty status / Z98.61(ICD-10) [facility] 01/10/2024 Admitting Diagnosis Non-ST elevation (NSTEMI) myocardial infarction (Multi) / I21.4(ICD-10) [facility] 01/10/2024 Admitting Diagnosis Body mass index (BMI) 29.0-29.9, adult / Z68.29(ICD-10) [facility] 01/10/2024 Admitting Diagnosis Nicotine dependence, other tobacco product, uncomplicated / F17.290(ICD-10) [facility] 12/26/2023 Unknown Non-ST elevation (NSTEMI) myocardial infarction / I21.4(ICD-10) [facility] 12/26/2023 Unknown Other forms of a ngina pectoris / I20.89(ICD-10) [facility] 12/26/2023 Unknown Type 2 diabetes mellitus with hyperglycemia / E11.65(ICD-10) [facility] 12/26/2023 Unknown Pure hypercholesterolemia, unspecified / E78.00(ICD-10) [facility] PROCEDURES No Procedure Records Found RESULTS GLUCOSE POCT GLUCOMETERS Collected: 12/07/2024 11:44 AM Status: F Source: [facility] TYPE CODE TESTS RESULT OUT OF RANGE REFERENCE UNITS LAB GLUPOC Glucose Poc Glucometers 151 mg/dL Result Comment: Random Gluco se Reference Range is dependent on time and content of last meal. Glucose of more than 200 mg/dL in a nonstressed, ambulatory subject supports the diagnosis of Diabetes Mellitus. PERFORMED BY: [facility] [address] [place] [address] PATHOLOGIST HYDRO ELECTRIC STATION OPERATOR FLORENCIO CORTEZ M.D. Performed By: #### GLULS ### # Point of Care testing , GLUCOSE POCT GLUCOMETERS Collected: 12/07/2024 6:30 A M Status: F Source: [facility] TYPE CODE TESTS RESULT OUT OF RANGE REFERENCE UNITS LAB GLUPOC Glucose Poc Glucometers 139 mg/dL Result Comment: Random Gluco se Reference Range is dependent on time and content of last meal. Glucose of more than 200 mg/dL in a nonstressed, ambulatory subject supports the diagnosis of Diabetes Mellitus. PERFORMED BY: [facility] [address] [place] [address] PATHOLOGIST HYDRO ELECTRIC STATION OPERATOR FLORENCIO CORTEZ M.D. Performed By: #### GLULS ### # Point of Care testing , COMPLETE BLOOD COUNT AUTO DIFF Collected: 12/07/2024 6:05 AM Status: F Source: F [facility] TYPE CODE TESTS RESULT OUT OF RANGE REFERENCE UNITS LAB WBC White Blood Count 6.3 Normal 4.1-10.5 [CFU]/mL LAB UNWBC Uncorrected WBC 6.3 Normal 4.1-10.5 10*3/uL LAB RBC Red Blood Count 2.73 Low 3.90-5.60 10*6/u L LAB HGB Hemoglobin 8.1 Low 13.0-17.0 g/dL LAB HCT Hematocrit 24.1 Low 38.8-50.0 % LAB MCV Mean Corpuscular Volume 88.2 Normal 83.5-101 fL LAB MCH Mean Corpuscular Hemoglobin 29.8 Normal 27.5-35.2 pg LAB MCHC Mean Corpuscular HGB Conc 33.8 Normal 32.5-35.6 g/dL LAB RDW Red Cell Distribution Width 14.2 Normal 12.0-14.8 % LAB PLT Platelet Count 379 Normal 150-450 10*3/uL LAB MPV Mean Platelet Volume 7.1 Normal 6.6-10.1 fL LAB NE% Neutrophils % (Auto) 69.2 . % LAB LY% Lymphocytes % (Auto) 20.1 . % LAB MO% Monocytes % (Auto) 5.5 . % LAB EO% Eosinophils % (Auto) 4.7 . % LAB BA% Basophils % (Auto) 0.5 . % LAB NRBC% NRBC% 0.1 Normal 0-0.5 /100{WBC} LAB NE# Neutrophils # (Auto) 4.3 Normal 1.8-7.7 10*3/uL LAB LY# Lymphocytes # (Auto) 1.3 Normal 1.00-4.8 10*3/uL LAB MO# Monocytes # (Auto) 0.3 Normal 0.0-0.8 10*3/uL LAB EO# Eosinophils # (Auto) 0.3 Normal 0.0-0.45 10*3/uL LAB BA# Basophils # (Auto) 0.0 Normal 0.0-0.2 10*3/uL Result Comment: PERFORMED BY : [place] [address] PATHOLOGIST HYDRO ELECTRIC STATION OPERATOR FLORENCIO CORTEZ M.D. Performed By: #### CMP, CBC, MG #### [address] COMPREHENSIVE METABOLIC PANEL Collected: 12/07/2024 6 :05 AM Status: F Source: [facility] TYPE CODE TESTS RESULT OUT OF RANGE REFERENCE UNITS LAB GLU Glucose 123 High 70-100 mg/dL Result Comment: Random Gluco se Reference Range is dependent on time and content of last meal. Glucose of more than 200 mg/dL in a nonstressed, ambulatory subject supports the diagnosis of Diabetes Mellitus. ADA recommended reference range LAB BUN Blood Urea Nitrogen 20 Normal 7-25 mg/d L LAB CREATT Creatinine 1.03 Normal 0.70-1.30 mg/dL LAB GFReNR Estimated GFR >60.0 LAB NA Sodium 138 Normal 136-145 mmol/L LAB K Potassium 4.2 Normal 3.5-5.1 mmol/L LAB CL Chloride 106 Normal 98-107 mmol/L LAB CO2 Carbon Dioxide 27.3 Normal 21.0-31.0 mmol/L LAB GAP Anion Gap 8.9 Normal 6.0-15.0 LAB CA Calcium 8.3 Low 8.6-10.3 mg/dL LAB TP Total Protein 5.8 Low 6.4-8.9 g/dL LAB ALB Albumin Level 3.8 Normal 3.5-5.7 g/dL LAB GLOB Globulin 2.0 g/dL LAB AGRATIO Albumin/Globulin Ratio 1.9 LAB BILIT Bilirubin,Total 0.4 Normal 0.3-1.0 mg/dL LAB AST Aspartate Amino Transferase 12 Low 13-39 U/L LAB ALT Alanine Aminotransferase 18 Normal 7-52 U/L LAB ALP Alkaline Phosphatase 76 Normal 34-104 U/L LAB CRCLPHA Creatinine Clr C alc Pharmacy 71.75 Performed By: #### CMP, CBC, MG #### [place] [id number] [facility] MAGNESIUM Collected: 6:05 AM Status: F Source: [facility] TYPE CODE TESTS RESULT OUT OF RANGE REFERENCE UNITS LAB MG Magnesium 2.2 Normal 1.9-2.7 mg/dL Result Comment: PERFORMED BY : [place] [address] PATHOLOGIST HYDRO ELECTRIC STATION OPERATOR FLORENCIO CORTEZ M.D. Performed By: #### CMP, CBC, MG #### [place] [id number] [facility] GLUCOSE POCT GLUCOMETERS Collected: 12/06/2024 8:32 P M Status: F Source: [facility] TYPE CODE TESTS RESULT OUT OF RANGE REFERENCE UNITS LAB GLUPOC Glucose Poc Glucometers 169 mg/dL Result Comment: Random Gluco se Reference Range is dependent on time and content of last meal. Glucose of more than 200 mg/dL in a nonstressed, ambulatory subject supports the diagnosis of Diabetes Mellitus. PERFORMED BY: [place] [address] PATHOLOGIST HYDRO ELECTRIC STATION OPERATOR FLORENCIO CORTEZ M.D. Performed By: #### GLULS ### # Point of Care testing , GLUCOSE POCT GLUCOMETERS Collected: 12/06/2024 4:28 P M Status: F Source: [facility] TYPE CODE TESTS RESULT OUT OF RANGE REFERENCE UNITS LAB GLUPOC Glucose Poc Glucometers 157 mg/dL Result Comment: Random Gluco se Reference Range is dependent on time and content of last meal. Glucose of more than 200 mg/dL in a nonstressed, ambulatory subject supports the diagnosis of Diabetes Mellitus. PERFORMED BY: [place] [id number] PATHOLOGIST HYDRO ELECTRIC STATION OPERATOR FLORENCIO CORTEZ M.D. Performed By: #### GLULS ### # Point of Care testing , ECH ECHO TRANSTHORACIC Observed: 025 3:40 PM Status: COMPLETED Source: [facility] Main [place] [id number] Echocardiogram Signed Patient: Jesse Garrison MR#: [id number] : 1950 Acct:[id number] Age/Sex: 74 / M ADM Date: 12/05/24 Loc: Room: [address] [place] [address] Type: ADM IN Attending Dr: Michelle Aguayo MD Ordering Provider: Yamilex Verma APRN Date of Service: 12/06/24 ECH/ECH echo transthoracic: shortness of breath, chest pressure Copies to: MD Yamilex Murray, LEACHER Jesse Patient Location: : 1950 Gender: Male (MM/DD/YYYY) Age: 74 Years Ordering Physician: Yamilex Verma Height: 69 in Weight: 204.809 lb Performed By: Esequiel Carballo RDCS, T BSA: 2.09 m2 BP: 108 / 59 mmHg HR: 65 bpm Reason For Study: shortness of breath, chest pressure History: PCI. NSTEMI. DM. CKD. HTN. Former Smoker. + + Interpretation Summary Ejection Fraction = 60-65%. The left ventricular size and thickness are normal. No regional wall motion abnormalities noted. A variety of Doppler measurements indicate normal left ventricular diastolic function. There is trace tricuspid regurgitation. Compared to prior study, there is no significant change. Procedure/Quality: A two-dimensional transthoracic echocardiogram with color flow, Doppler and injection of contrast agent Definity was performed. The study was technically good in quality. Left Ventricle: The left ventricular size and thickness are normal. Ejection Fraction = 60-65%. A variety of Doppler measurements indicate normal left ventricular diastolic function. No regional wall motion abnormalities noted. Left Atrium: The left atrium appears normal in size. Right Atrium: The right atrium appears normal in size. Right Ventricle: The right ventricle is normal in size and function. Aortic Valve: The aortic valve is normal in structure. No hemodynamically significant valvular aortic stenosis. No aortic regurgitation is present. Mitral Valve: The mitral valve is normal in structure. No significant mitral valve stenosis. There is no mitral regurgitation noted. Tricuspid Valve: The tricuspid valve is normal in structure. There is trace tricuspid regurgitation. Pulmonic Valve: The pulmonic valve is not well visualized. No significant pulmonic regurgitation. Arteries: The aortic root is normal size. Pericardium/Pleura: No pericardial effusion seen. IVC/Hepatic Veins: The inferior vena cava is normal in size, with a normal collapsibility index. MMode/2D Measurements Calculations IVSd (0.7-1.1 cm): 1.10 cm LVIDd (3.7-5.4 cm): 4.4 cm LVPWd (0.7-1.1 cm): 1.10 cm LVIDs (2.3-3.6 cm): 2.7 cm LA dimension (2.3-4.0 cm): 4.5 LVOT diam: 2.10 cm cm FS: 38.6 % LVOT area: 3.5 cm2 EDV(Teich): 87.7 ml Ao root area: 8.6 cm2 ESV(Teich): 27.0 ml Ao root diam (2.0-3.2 cm): 3.3 cm EF(Teich): 69.2 % asc Aorta Diam: 3.5 cm LA A2 area: 19.7 cm2 LA A4 area: 20.4 cm2 LA length (vol): 5.7 cm LA vol: 59.4 ml LA vol index: 28.5 ml/m2 Doppler Measurements Calculations E/E' med: 12.0 Ao V2 max: 113.0 cm/sec E/E' lat: 8.4 Ao max P.1 mmHg MV E max darrius: 91.8 cm/sec Ao mean P.0 mmHg MV A max darrius: 86.3 cm/sec Ao V2 mean: 76.0 cm/sec MV E/A: 1.06 Ao V2 VTI: 25.6 cm GRISELDA(I,D): 2.8 cm2 GRISELDA(V,D): 2.8 cm2 MV V2 VTI: 44.3 cm MV mean P.00 mmHg MV V2 mean: 57.3 cm/sec MV dec time: 0.26 sec TV max P.0 mmHg LV V1 max: 90.6 cm/sec TR max darrius: 312.0 cm/sec LV V1 max P.3 mmHg TR max P.9 mmHg LV V1 mean: 60.0 cm/sec RAP systole: 3.0 mmHg LV V1 mean P.00 mmHg RVSP(TR): 41.9 mmHg LV V1 VTI: 20.9 cm Other Measurements Calculations RA Volume: RA Volume 35.6 ml Index: 17.0 ml/m2 + + + + + + + : Electronically : : : : signed by: Alhaji : : Miguelito : : : : Ana Lilia : : : : on: 12/06/2024, : : : : 7:51 PM : + + + Tech Comments No previous echo. Transcribed By: SCKenya Performed At: 12/06/24 1540 Signed By: Alhaji Sung MD 12/06/241950 GLUCOSE POCT GLUCOMETERS Collected: 12/06/2024 11:07 AM Status: F Source: [facility] TYPE CODE TESTS RESULT OUT OF RANGE REFERENCE UNITS LAB GLUPOC Glucose Poc Glucometers 169 mg/dL Result Comment: Random Gluco se Reference Range is dependent on time and content of last meal. Glucose of more than 200 mg/dL in a nonstressed, ambulatory subject supports the diagnosis of Diabetes Mellitus. PERFORMED BY: [facility] [address] [place] [address] PATHOLOGIST HYDRO ELECTRIC STATION OPERATOR FLORENCIO COTREZ M.D. Performed By: #### GLULS ### # Point of Care testing , COMPLETE BLOOD COUNT AUTO DIFF Collected: 12/06/2024 7:25 AM Status: F Source: F [facility] TYPE CODE TESTS RESULT OUT OF RANGE REFERENCE UNITS LAB WBC White Blood Count 6.3 Normal 4.1-10.5 [CFU]/mL LAB UNWBC Uncorrected WBC 6.3 Normal 4.1-10.5 10*3/uL LAB RBC Red Blood Count 2.75 Low 3.90-5.60 10*6/u L LAB HGB Hemoglobin 8.2 Low 13.0-17.0 g/dL LAB HCT Hematocrit 24.5 Low 38.8-50.0 % LAB MCV Mean Corpuscular Volume 89.1 Normal 83.5-101 fL LAB MCH Mean Corpuscular Hemoglobin 29.9 Normal 27.5-35.2 pg LAB MCHC Mean Corpuscular HGB Conc 33.5 Normal 32.5-35.6 g/dL LAB RDW Red Cell Distribution Width 14.3 Normal 12.0-14.8 % LAB PLT Platelet Count 380 Normal 150-450 10*3/uL LAB MPV Mean Platelet Volume 7.4 Normal 6.6-10.1 fL LAB NE% Neutrophils % (Auto) 67.5 . % LAB LY% Lymphocytes % (Auto) 20.9 . % LAB MO% Monocytes % (Auto) 6.3 . % LAB EO% Eosinophils % (Auto) 4.9 . % LAB BA% Basophils % (Auto) 0.4 . % LAB NRBC% NRBC% 0.1 Normal 0-0.5 /100{WBC} LAB NE# Neutrophils # (Auto) 4.3 Normal 1.8-7.7 10*3/uL LAB LY# Lymphocytes # (Auto) 1.3 Normal 1.00-4.8 10*3/uL LAB MO# Monocytes # (Auto) 0.4 Normal 0.0-0.8 10*3/uL LAB EO# Eosinophils # (Auto) 0.3 Normal 0.0-0.45 10*3/uL LAB BA# Basophils # (Auto) 0.0 Normal 0.0-0.2 10*3/uL Result Comment: PERFORMED BY : [place] [address] PATHOLOGIST HYDRO ELECTRIC STATION OPERATOR FLORENCIO CORTEZ M.D. Performed By: #### CBC, HS T ROP, BMP, MG #### [address] TROPONIN I HIGH SENSITIVITY Collected: 12/06/2024 7:2 5 AM Status: F Source: [facility] TYPE CODE TESTS RESULT OUT OF RANGE REFERENCE UNITS LAB HS TROP Troponin I High Sensitivity 17 Normal 0-20 Result Comment: The Troponin units of report have been changed to meet the Chest Pain Accreditation requirement, element EC5.M1l2. Troponin units are changed from pg/ml to ng/L. Also, the decimal is removed and results are in whole numbers. PERFORMED BY: [place] [address] PATHOLOGIST HYDRO ELECTRIC STATION OPERATOR FLORENCIO CORTEZ M.D. Performed By: #### CBC, HS T ROP, BMP, MG #### [facility] [address] [place], [place] [id number] [facility] BASIC METABOLIC PANEL Collected: 12/06/2024 7:25 AM Status: F Source: [facility] TYPE CODE TESTS RESULT OUT OF RANGE REFERENCE UNITS LAB GLU Glucose 120 High 70-100 mg/dL Result Comment: Random Gluco se Reference Range is dependent on time and content of last meal. Glucose of more than 200 mg/dL in a nonstressed, ambulatory subject supports the diagnosis of Diabetes Mellitus. ADA recommended reference range LAB BUN Blood Urea Nitrogen 17 Normal 7-25 mg/dL LAB CREATT Creatinine 0.88 Normal 0.70-1.30 mg/dL LAB GFReNR Estimated GFR >60.0 LAB NA Sodium 138 Normal 136-145 mmol/L LAB K Potassium 4.7 Normal 3.5-5.1 mmol/L LAB CL Chloride 106 Normal 98-107 mmol/L LAB CO2 Carbon Dioxide 30.2 Normal 21.0-31.0 mmol/L LAB GAP Anion Gap 6.5 Normal 6.0-15.0 LAB CA Calcium 8.4 Low 8.6-10.3 mg/dL LAB CRCLPHA Creatinine Clr Calc Pharmacy 84.15 Performed By: #### CBC, HS T ROP, BMP, MG #### [place] [id number] [facility] MAGNES[facility] Collected: 7:25 AM Status: F Source: [facility] TYPE CODE TESTS RESULT OUT OF RANGE REFERENCE UNITS LAB MG Magnesium 2.3 Normal 1.9-2.7 mg/dL Result Comment: PERFORMED BY : [place] [address] PATHOLOGIST HYDRO ELECTRIC STATION OPERATOR FLORENCIO CORTEZ M.D. Performed By: #### CBC, HS T ROP, BMP, MG #### [place] [id number] [facility] GLUCOSE POCT GLUCOMETERS Collected: 12/06/2024 6:39 A M Status: F Source: [facility] TYPE CODE TESTS RESULT OUT OF RANGE REFERENCE UNITS LAB GLUPOC Glucose Poc Glucometers 158 mg/dL Result Comment: Random Gluco se Reference Range is dependent on time and content of last meal. Glucose of more than 200 mg/dL in a nonstressed, ambulatory subject supports the diagnosis of Diabetes Mellitus. LAB COMM1 Commemt1 Glu2: Cleaned Meter Result Comment: PERFORMED BY : [place] [address] PATHOLOGIST HYDRO ELECTRIC STATION OPERATOR FLORENCIO CORTEZ M.D. Performed By: #### GLULS ### # Point of Care testing , GLUCOSE POCT GLUCOMETERS Collected: 12/05/2024 11:33 PM Status: F Source: [facility] TYPE CODE TESTS RESULT OUT OF RANGE REFERENCE UNITS LAB GLUPOC Glucose Poc Glucometers 158 mg/dL Result Comment: Random Gluco se Reference Range is dependent on time and content of last meal. Glucose of more than 200 mg/dL in a nonstressed, ambulatory subject supports the diagnosis of Diabetes Mellitus. LAB COMM1 Commemt1 Glu2: Cleaned Meter Result Comment: PERFORMED BY : [place] [address] PATHOLOGIST HYDRO ELECTRIC STATION OPERATOR FLORENCIO CORTEZ M.D. Performed By: #### GLULS ### # Point of Care testing , CT ANGIO CHEST PE PROTOCOL Observed: 7:59 PM Status: COMPLETED Source: [facility] [place] [address] [place] Scan Report Signed Patient: Jesse Garrison MR#: [id number] : 1950 Acct:[id number] Age/Sex: 74 / M ADM Date: 12/05/24 Loc: ER Room: Type: [facility] ER Attending Dr: Copies to: Mavis Gonzalez APRN Ordering Provider: Mavis Gonzalez APRN Date of Service: 12/05/24 CT/CT angio chest PE protocol: sob CT ANGIOGRAM OF THE CHEST, PULMONARY EMBOLISM PROTOCOL: CLINICAL INFORMATION: Shortness breath TECHNIQUE: Following intravenous injection of contrast CT scans of the chest were obtained using pulmonary embolism protocol. Coronal and sagittal reconstructed images.The CT exam was performed using one or more of the following dose reduction techniques: Automated exposure control, adjustment of the MA and/or Kv according to patient size, or use of the iterative reconstruction technique. FINDINGS: Pulmonary Vasculature: No central or lobar pulmonary emboli. Distal branches are less than optimally evaluated. Mediastinum : Cardiomegaly. Coronary artery disease noted. No effusion. No pathologically enlarged mediastinal or hilar adenopathy. Lungs: Hypoventilatory changes.. No focal consolidation, pneumothorax or pleural effusion. Upper abdomen: Noncontributory. Soft tissue/bones: Soft tissues surrounding the chest wall demonstrate no acute findings. Osseous structures demonstrate degenerative change. CT/CT angio chest PE protocol IMPRESSION: No CT evidence of pulmonary embolism or acute cardiopulmonary process. Impression dictated by: Dallas Mendoza M.D. 12/05/2024 8:01 PM Dictation Location: [place] [address] Transcribed By: [facility] 12/05/242000 Dictated By: Dallas Mendoza MD 12/05/241958 Signed By: <Electronically signed by Dallas Mednoza MD in OV> 12/05/242000 TROPONIN I HIGH SENSITIVITY Collected: 12/05/2024 6:3 9 PM Status: F Source: [facility] TYPE CODE TESTS RESULT OUT OF RANGE REFERENCE UNITS LAB HS TROP Troponin I High Sensitivity 17 Normal 0-20 Result Comment: The Troponin units of report have been changed to meet the Chest Pain Accreditation requirement, element EC5.M1l2. Troponin units are changed from pg/ml to ng/L. Also, the decimal is removed and results are in whole numbers. PERFORMED BY: [place] [address] PATHOLOGIST HYDRO ELECTRIC STATION OPERATOR FLORENCIO CORTEZ M.D. Performed By: #### HS TROP # ### [facility] [address] [place], [place] [id number] [facility] STOOL OCCULT BLOOD (GUAIAC) Observed: 12/05/2024 6:39 PM Status: F Source: [facility] Occult Blood Positive for Occult Blood by Guaiac Methodology Reference range = Negative PERFORMED BY: [place] [address] PATHOLOGIST HYDRO ELECTRIC STATION OPERATOR FLORENCIO CORTEZ M.D. Performed By: #### OB(GUAIAC ) #### [address] TYPE AND SCREEN Collected: 12/05/2024 4:08 PM Status : F Source: [facility] TYPE CODE TESTS RESULT OUT OF RANGE REFERENCE UNITS LAB BTV Blood Type O Positive LAB ABS Antibody Screen NEGATIVE Result Comment: PERFORMED BY : [address] [place] [address] PATHOLOGIST HYDRO ELECTRIC STATION OPERATOR FLORENCIO CORTEZ M.D. COMPLETE BLOOD COUNT AUTO DIFF Collected: 12/05/2024 4:08 PM Status: F Source: [facility] TYPE CODE TESTS RESULT OUT OF RANGE REFERENCE UNITS LAB WBC White Blood Count 6.7 Normal 4.1-10.5 [CFU]/mL LAB UNWBC Uncorrected WBC 6.7 Normal 4.1-10.5 10*3/uL LAB RBC Red Blood Count 2.89 Low 3.90-5.60 10*6/u L LAB HGB Hemoglobin 8.7 Low 13.0-17.0 g/dL LAB HCT Hematocrit 25.7 Low 38.8-50.0 % LAB MCV Mean Corpuscular Volume 88.9 Normal 83.5-101 fL LAB MCH Mean Corpuscular Hemoglobin 30.2 Normal 27.5-35.2 pg LAB MCHC Mean Corpuscular HGB Conc 33.9 Normal 32.5-35.6 g/dL LAB RDW Red Cell Distribution Width 14.8 Normal 12.0-14.8 % LAB PLT Platelet Count 405 Normal 150-450 10*3/uL LAB MPV Mean Platelet Volume 7.1 Normal 6.6-10.1 fL LAB MDW Monocyte Distribution Width 18.12 Normal 0.00-20.00 % LAB NE% Neutrophils % (Auto) 72.0 . % LAB LY% Lymphocytes % (Auto) 18.6 . % LAB MO% Monocytes % (Auto) 5.3 . % LAB EO% Eosinophils % (Auto) 3.8 . % LAB BA% Basophils % (Auto) 0.3 . % LAB NRBC% NRBC% 0.2 Normal 0-0.5 /100{WBC } LAB NE# Neutrophils # (Auto) 4.8 Normal 1.8-7.7 10*3/uL LAB LY# Lymphocytes # (Auto) 1.2 Normal 1.00-4.8 10*3/uL LAB MO# Monocytes # (Auto) 0.4 Normal 0.0-0.8 10*3/uL LAB EO# Eosinophils # (Auto) 0.3 Normal 0.0-0.45 10*3/uL LAB BA# Basophils # (Auto) 0.0 Normal 0.0-0.2 10*3/uL Result Comment: PERFORMED BY : [place] [address] PATHOLOGIST HYDRO ELECTRIC STATION OPERATOR FLORENCIO CORTEZ M.D. Performed By: #### PT, HS TR OP, PTT, CBC, CMP, BNP #### [place] [id number] [facility] COMPREHENSIVE METABOLIC PANEL Collected: 12/05/2024 4 :08 PM Status: F Source: [facility] TYPE CODE TESTS RESULT OUT OF RANGE REFERENCE UNITS LAB GLU Glucose 237 High 70-100 mg/dL Result Comment: Random Gluco se Reference Range is dependent on time and content of last meal. Glucose of more than 200 mg/dL in a nonstressed, ambulatory subject supports the diagnosis of Diabetes Mellitus. ADA recommended reference range LAB BUN Blood Urea Nitrogen 18 Normal 7-25 mg/d L LAB CREATT Creatinine 0.87 Normal 0.70-1.30 mg/dL LAB GFReNR Estimated GFR >60.0 LAB NA Sodium 139 Normal 136-145 mmol/L LAB K Potassium 4.1 Normal 3.5-5.1 mmol/L LAB CL Chloride 102 Normal 98-107 mmol/L LAB CO2 Carbon Dioxide 31.1 High 21.0-31.0 mmol/L LAB GAP Anion Gap 10.0 Normal 6.0-15.0 LAB CA Calcium 9.2 Normal 8.6-10.3 mg/dL LAB TP Total Protein 6.4 Normal 6.4-8.9 g/dL LAB ALB Albumin Level 4.3 Normal 3.5-5.7 g/dL LAB GLOB Globulin 2.1 g/dL LAB AGRATIO Albumin/Globulin Ratio 2.0 LAB BILIT Bilirubin,Total 0.3 Normal 0.3-1.0 mg/dL LAB AST Aspartate Amino Transferase 18 Normal 13-39 U/L LAB ALT Alanine Aminotransferase 22 Normal 7-52 U/L LAB ALP Alkaline Phosphatase 85 Normal 34-104 U/L LAB CRCLPHA Creatinine Clr C alc Pharmacy 85.16 Result Comment: PERFORMED BY : [place] [address] PATHOLOGIST HYDRO ELECTRIC STATION OPERATOR FLORENCIO CORTEZ M.D. Performed By: #### PT, HS TR OP, PTT, CBC, CMP, BNP #### [facility] [address] [place] [address] [facility] B-TYPE NATRIURETIC PEPTIDE Collected: 12/05/2024 4:08 PM Status: F Source: [facility] TYPE CODE TESTS RESULT OUT OF RANGE REFERENCE UNITS LAB BNP B-Type Natriuretic Peptide 35.0 Normal 5-100 pg/mL Result Comment: PERFORMED BY : [place] [address] PATHOLOGIST HYDRO ELECTRIC STATION OPERATOR FLORENCIO CORTEZ M.D. Performed By: #### PT, HS TR OP, PTT, CBC, CMP, BNP #### [place] [id number] [facility] TROPONIN I HIGH SENSITIVITY Collected: 12/05/2024 4:0 8 PM Status: F Source: [facility] TYPE CODE TESTS RESULT OUT OF RANGE REFERENCE UNITS LAB HS TROP Troponin I High Sensitivity 16 Normal 0-20 Result Comment: The Troponin units of report have been changed to meet the Chest Pain Accreditation requirement, element EC5.M1l2. Troponin units are changed from pg/ml to ng/L. Also, the decimal is removed and results are in whole numbers. PERFORMED BY: [place] [address] PATHOLOGIST HYDRO ELECTRIC STATION OPERATOR FLORENCIO CORTEZ M.D. Performed By: #### PT, HS TR OP, PTT, CBC, CMP, BNP #### [place] [id number] [facility] PROTHROMBIN TIME INR Collected: 12/05/2024 4:08 PM S tatus: F Source: [facility] TYPE CODE TESTS RESULT OUT OF RANGE REFERENCE UNITS LAB R PT Prothrombin Time 10.6 Normal 9.0-12.9 s Result Comment: A hematocrit value greater than 55% may lead to inaccurate results in coagulation testing. Patients having hematocrit values >55% require a special collection tube for coagulation studies. Please contact the laboratory at [phone] for redraw instructions. LAB INR INR 0.9 Result Comment: INR Therapeu tic Range A) Pre- and Peroperative OAT started [...] valves: 3 - 4.5 Performed By: #### PT, HS TR OP, PTT, CBC, CMP, BNP #### [address] [address] [place] PARTIAL THROMBOPLASTIN TIME Collected: 12/05/2024 4:0 8 PM Status: F Source: [facility] TYPE CODE TESTS RESULT OUT OF RANGE REFERENCE UNITS LAB PTT Partial Thromboplastin Time 27.2 Normal 25.1-36.5 s Result Comment: A hematocrit value greater than 55% may lead to inaccurate results in coagulation testing. Patients having hematocrit values >55% require a special collection tube for coagulation studies. Please contact the laboratory at [phone] for redraw instructions. PERFORMED BY: [place] [address] PATHOLOGIST HYDRO ELECTRIC STATION OPERATOR FLORENCIO CORTEZ M.D. Performed By: #### PT, HS TR OP, PTT, CBC, CMP, BNP #### [facility] [address] [place] [address] [facility] XR CHEST 2V* Observed: 12/05/2024 3:15 PM Status: COMPLETED Source: [facility] Main [place] [id number] XRay Report Signed Patient: Jesse Garrison MR#: [id number] : 1950 Acct:[id number] Age/Sex: 74 / M ADM Date: 12/05/24 Loc: ER Room: Type: PRE ER Attending Dr: Copies to: Mavis Gonzalez APRN TEMP, PROVIDER Ordering Provider: Mavis Gonzalez APRN Date of Service: 12/05/24 XR/XR chest 2V*: Chest Pain PA AND LATERAL CHEST: CLINICAL HISTORY: Weakness, dizziness, shortness breath COMPARISON: 11/29/2024 FINDINGS: Unremarkable cardiomediastinal. Lungs clear. No effusion or pneumothorax. XR/XR chest 2V* IMPRESSION: NO ACUTE CARDIOPULMONARY ABNORMALITY. Impression dictated by: Dallas Mendoza M.D. 12/05/2024 3:16 PM Dictation Location: [facility] Transcribed By: [facility] 12/05/241515 Dictated By: Dallas Mendoza MD 12/05/241514 Signed By: <Electronically signed by Dallas Mendoza MD in OV> 12/05/241515 ECG 12 LEAD ECG Observed: 12/05/2024 2:44 PM Status: COMPLETED Source: [facility] [place] [address] Electrocardiograph Report Signed Patient: Jesse Garrison MR#: [id number] : 1950 Acct:[id number] Age/Sex: 74 / M ADM Date: 12/05/24 Loc: Room: [address] [place] [address] Type: ADM IN Attending Dr: Elvis Wilkinson DO Ordering Provider: Mavis Gonzalez APRN Date of Service: 12/05/24 ECG/ECG 12 lead ECG: CHEST PAIN Copies to: Test Reason : Blood Pressure : */* mmHG Vent. Rate : 90 BPM Atrial Rate : 90 BPM P-R Int : 124 ms QRS Dur : 140 ms QT Int : 388 ms P-R-T Axes : 44 99 21 degrees QTcB Int : 474 ms Normal sinus rhythm Right bundle branch block Confirmed by Carri Shoemaker MD ([id number]) on 12/06/2024 12:42:01 AM Referred By: Electronically Signed By: Carri Shoemaker MD Transcribed By: MUS Signed By Carri Shoemaker MD 11/12 09/04 0042 GLUCOSE POCT GLUCOMETERS Collected: 12/03/2024 11:11 AM Status: F Source: [facility] TYPE CODE TESTS RESULT OUT OF RANGE REFERENCE UNITS LAB GLUPOC Glucose Poc Glucometers 255 mg/dL Result Comment: Random Gluco se Reference Range is dependent on time and content of last meal. Glucose of more than 200 mg/dL in a nonstressed, ambulatory subject supports the diagnosis of Diabetes Mellitus. PERFORMED BY: [place] [id number] PATHOLOGIST HYDRO ELECTRIC STATION OPERATOR FLORENCIO CORTEZ M.D. Performed By: #### GLULS ### # Point of Care testing , GLUCOSE POCT GLUCOMETERS Collected: 12/03/2024 7:28 A M Status: F Source: [facility] TYPE CODE TESTS RESULT OUT OF RANGE REFERENCE UNITS LAB GLUPOC Glucose Poc Glucometers 170 mg/dL Result Comment: Random Gluco se Reference Range is dependent on time and content of last meal. Glucose of more than 200 mg/dL in a nonstressed, ambulatory subject supports the diagnosis of Diabetes Mellitus. PERFORMED BY: [facility] [place] [address] PATHOLOGIST HYDRO ELECTRIC STATION OPERATOR FLORENCIO CORTEZ M.D. Performed By: #### GLULS ### # Point of Care testing , COMPLETE BLOOD COUNT AUTO DIFF Collected: 12/03/2024 5:28 AM Status: F Source: F [facility] TYPE CODE TESTS RESULT OUT OF RANGE REFERENCE UNITS LAB WBC White Blood Count 7.5 Normal 4.1-10.5 [CFU]/mL LAB UNWBC Uncorrected WBC 7.5 Normal 4.1-10.5 10*3/uL LAB RBC Red Blood Count 2.53 Low 3.90-5.60 10*6/u L LAB HGB Hemoglobin 7.8 Low 13.0-17.0 g/dL LAB HCT Hematocrit 22.5 Low 38.8-50.0 % LAB MCV Mean Corpuscular Volume 88.8 Normal 83.5-101 fL LAB MCH Mean Corpuscular Hemoglobin 30.9 Normal 27.5-35.2 pg LAB MCHC Mean Corpuscular HGB Conc 34.8 Normal 32.5-35.6 g/dL LAB RDW Red Cell Distribution Width 13.3 Normal 12.0-14.8 % LAB PLT Platelet Count 296 Normal 150-450 10*3/uL LAB MPV Mean Platelet Volume 7.5 Normal 6.6-10.1 fL LAB NE% Neutrophils % (Auto) 67.1 . % LAB LY% Lymphocytes % (Auto) 23.6 . % LAB MO% Monocytes % (Auto) 5.2 . % LAB EO% Eosinophils % (Auto) 3.9 . % LAB BA% Basophils % (Auto) 0.2 . % LAB NRBC% NRBC% 0.4 Normal 0-0.5 /100{WBC} LAB NE# Neutrophils # (Auto) 5.0 Normal 1.8-7.7 10*3/uL LAB LY# Lymphocytes # (Auto) 1.8 Normal 1.00-4.8 10*3/uL LAB MO# Monocytes # (Auto) 0.4 Normal 0.0-0.8 10*3/uL LAB EO# Eosinophils # (Auto) 0.3 Normal 0.0-0.45 10*3/uL LAB BA# Basophils # (Auto) 0.0 Normal 0.0-0.2 10*3/uL Result Comment: PERFORMED BY : [place] [address] PATHOLOGIST HYDRO ELECTRIC STATION OPERATOR FLORENCIO CORTEZ M.D. Performed By: #### CBC, BMP #### [address] [address] [facility] BASIC METABOLIC PANEL Collected: 12/03/2024 5:28 AM Status: F Source: [facility] TYPE CODE TESTS RESULT OUT OF RANGE REFERENCE UNITS LAB GLU Glucose 139 High 70-100 mg/dL Result Comment: Random Gluco se Reference Range is dependent on time and content of last meal. Glucose of more than 200 mg/dL in a nonstressed, ambulatory subject supports the diagnosis of Diabetes Mellitus. ADA recommended reference range LAB BUN Blood Urea Nitrogen 17 Normal 7-25 mg/dL LAB CREATT Creatinine 0.87 Normal 0.70-1.30 mg/dL LAB GFReNR Estimated GFR >60.0 LAB NA Sodium 140 Normal 136-145 mmol/L LAB K Potassium 4.0 Normal 3.5-5.1 mmol/L LAB CL Chloride 105 Normal 98-107 mmol/L LAB CO2 Carbon Dioxide 29.2 Normal 21.0-31.0 mmol/L LAB GAP Anion Gap 9.8 Normal 6.0-15.0 LAB CA Calcium 8.6 Normal 8.6-10.3 mg/dL LAB CRCLPHA Creatinine Clr Calc Pharmacy 84.61 Result Comment: PERFORMED BY : [place] [address] PATHOLOGIST HYDRO ELECTRIC STATION OPERATOR FLORENCIO CORTEZ M.D. Performed By: #### CBC, BMP #### [address] [address] GLUCOSE POCT GLUCOMETERS Collected: 12/02/2024 9:41 P M Status: F Source: [facility] TYPE CODE TESTS RESULT OUT OF RANGE REFERENCE UNITS LAB GLUPOC Glucose Poc Glucometers 184 mg/dL Result Comment: Random Gluco se Reference Range is dependent on time and content of last meal. Glucose of more than 200 mg/dL in a nonstressed, ambulatory subject supports the diagnosis of Diabetes Mellitus. LAB COMM1 Commemt1 Glu2: Cleaned Meter Result Comment: PERFORMED BY : [address] [place] [address] PATHOLOGIST HYDRO ELECTRIC STATION OPERATOR FLORENCIO CORTEZ M.D. Performed By: #### GLULS ### # Point of Care testing , GLUCOSE POCT GLUCOMETERS Collected: 12/02/2024 4:39 P M Status: F Source: [facility] TYPE CODE TESTS RESULT OUT OF RANGE REFERENCE UNITS LAB GLUPOC Glucose Poc Glucometers 211 mg/dL Result Comment: Random Gluco se Reference Range is dependent on time and content of last meal. Glucose of more than 200 mg/dL in a nonstressed, ambulatory subject supports the diagnosis of Diabetes Mellitus. PERFORMED BY: [address] [place] [address] PATHOLOGIST HYDRO ELECTRIC STATION OPERATOR FLORENCIO CORTEZ M.D. Performed By: #### GLULS ### # Point of Care testing , GLUCOSE POCT GLUCOMETERS Collected: 12/02/2024 11:40 AM Status: F Source: [facility] TYPE CODE TESTS RESULT OUT OF RANGE REFERENCE UNITS LAB GLUPOC Glucose Poc Glucometers 329 mg/dL Result Comment: Random Gluco se Reference Range is dependent on time and content of last meal. Glucose of more than 200 mg/dL in a nonstressed, ambulatory subject supports the diagnosis of Diabetes Mellitus. PERFORMED BY: [facility] [address] [place] [address] PATHOLOGIST HYDRO ELECTRIC STATION OPERATOR FLORENCIO CORTEZ M.D. Performed By: #### GLULS ### # Point of Care testing , L Observed: 12/02/2024 8:05 AM Status: F Source: [facility] ----- ------- Specimen: [id number] Received: 12/02/24 Status: DEBI Rodgers Num: [id number] Spec Type: Surgical Subm Dr: Mane Sommer MD Tissues: A Gastric Biopsy (GASTRIC BX) Procedures: HE/2, Gross/Micro L4, CHROM A, H PYLORI, IHC First AB, IHC Add AB ----- ------- Age/ Patient Sex Location Account Attending Physician ----- ------- Jesse Garrison/Ruth Ann P [id number] Ann Torres MD ----- ------- SPEC NUM: [id number] RECD: 12/02/24 STATUS: DEBI RODGERS NUM: [id number] KENIA: 12/02/[address]: Mane Sommer MD ENTERED: 12/02/[address] [facility] [address]: SPEC TYPE: Surgical DEPT: S ENTERED BY: [id number] RECV BY: [id number] ORDERED: HE/2, Gross/Micro L4, CHROM A, H PYLORI, IHC First AB, IHC Add AB ORDERED: HE/2, Gross/Micro L4, CHROM A, H PYLORI, IHC First AB, IHC Add AB Pathological Diagnosis Gastric biopsy: Moderate chronic gastritis with intestinal metaplasia; negative for Helicobacter or dysplasia. Clinical Information Melena, rule out H. pylori Gross Description Part A is received in formalin labeled with the patients date of , and Bladimir, gastric BX are 2 hurd-amin, focally erythematous, friable, 0.2 and 0.3 cm in greatest dimension tissue bits. The specimen is entirely submitted in a single cassette. (1, ns, [id number]) Microscopic Description Immunohistochemical stain for Helicobacter pylori is interpreted as negative. Chromogranin is interpreted as negative for neuroendocrine hyperplasia. CPT Codes [id number] ----- ------- ----- ------- Specimen: [id number] Received: 12/02/24 Status: DEBI Vishal Num: [id number] Spec Type: Surgical Subm Dr: Mane Sommer MD Tissues: A Gastric Biopsy (GASTRIC BX) Procedures: HE/2, Gross/Micro L4, CHROM A, H PYLORI, IHC First AB, IHC Add AB ----- ------- Patient: Jesse Garrison [id number] (Continued) ----- ------- Signed (signature on file) Bright Aguillon JR, MD 12/05/24 1621 COMPLETE BLOOD COUNT AUTO DIFF Collected: 12/02/2024 4:15 AM Status: F Source: F [facility] TYPE CODE TESTS RESULT OUT OF RANGE REFERENCE UNITS LAB WBC White Blood Count 7.1 Normal 4.1-10.5 [CFU]/mL LAB UNWBC Uncorrected WBC 7.1 Normal 4.1-10.5 10*3/uL LAB RBC Red Blood Count 2.41 Low 3.90-5.60 10*6/u L LAB HGB Hemoglobin 7.4 Low 13.0-17.0 g/dL LAB HCT Hematocrit 21.4 Low 38.8-50.0 % LAB MCV Mean Corpuscular Volume 88.7 Normal 83.5-101 fL LAB MCH Mean Corpuscular Hemoglobin 30.7 Normal 27.5-35.2 pg LAB MCHC Mean Corpuscular HGB Conc 34.6 Normal 32.5-35.6 g/dL LAB RDW Red Cell Distribution Width 13.1 Normal 12.0-14.8 % LAB PLT Platelet Count 253 Normal 150-450 10*3/uL LAB MPV Mean Platelet Volume 7.2 Normal 6.6-10.1 fL LAB NE% Neutrophils % (Auto) 65.4 . % LAB LY% Lymphocytes % (Auto) 25.4 . % LAB MO% Monocytes % (Auto) 5.1 . % LAB EO% Eosinophils % (Auto) 3.7 . % LAB BA% Basophils % (Auto) 0.4 . % LAB NRBC% NRBC% 0.2 Normal 0-0.5 /100{WBC} LAB NE# Neutrophils # (Auto) 4.6 Normal 1.8-7.7 10*3/uL LAB LY# Lymphocytes # (Auto) 1.8 Normal 1.00-4.8 10*3/uL LAB MO# Monocytes # (Auto) 0.4 Normal 0.0-0.8 10*3/uL LAB EO# Eosinophils # (Auto) 0.3 Normal 0.0-0.45 10*3/uL LAB BA# Basophils # (Auto) 0.0 Normal 0.0-0.2 10*3/uL Result Comment: PERFORMED BY : [place] [address] PATHOLOGIST HYDRO ELECTRIC STATION OPERATOR FLORENCIO CORTEZ M.D. Performed By: #### BMP, CBC #### [address] BASIC METABOLIC PANEL Collected: 12/02/2024 4:15 AM Status: F Source: [facility] TYPE CODE TESTS RESULT OUT OF RANGE REFERENCE UNITS LAB GLU Glucose 126 High 70-100 mg/dL Result Comment: Random Gluco se Reference Range is dependent on time and content of last meal. Glucose of more than 200 mg/dL in a nonstressed, ambulatory subject supports the diagnosis of Diabetes Mellitus. ADA recommended reference range LAB BUN Blood Urea Nitrogen 13 Normal 7-25 mg/dL LAB CREATT Creatinine 0.81 Normal 0.70-1.30 mg/dL LAB GFReNR Estimated GFR >60.0 LAB NA Sodium 139 Normal 136-145 mmol/L LAB K Potassium 4.2 Normal 3.5-5.1 mmol/L LAB CL Chloride 107 Normal 98-107 mmol/L LAB CO2 Carbon Dioxide 27.3 Normal 21.0-31.0 mmol/L LAB GAP Anion Gap 8.9 Normal 6.0-15.0 LAB CA Calcium 8.4 Low 8.6-10.3 mg/dL LAB CRCLPHA Creatinine Clr Calc Pharmacy 91.01 Result Comment: PERFORMED BY : [address] [place] [address] PATHOLOGIST HYDRO ELECTRIC STATION OPERATOR FLORENCIO CORTEZ M.D. Performed By: #### BMP, CBC #### [place] [phone] [facility] GLUCOSE POCT GLUCOMETERS Collected: 12/01/2024 9:04 P M Status: F Source: [facility] TYPE CODE TESTS RESULT OUT OF RANGE REFERENCE UNITS LAB GLUPOC Glucose Poc Glucometers 180 mg/dL Result Comment: Random Gluco se Reference Range is dependent on time and content of last meal. Glucose of more than 200 mg/dL in a nonstressed, ambulatory subject supports the diagnosis of Diabetes Mellitus. PERFORMED BY: [place] [address] PATHOLOGIST HYDRO ELECTRIC STATION OPERATOR FLORENCIO CORTEZ M.D. Performed By: #### GLULS ### # Point of Care testing , GLUCOSE POCT GLUCOMETERS Collected: 12/01/2024 4:28 P M Status: F Source: [facility] TYPE CODE TESTS RESULT OUT OF RANGE REFERENCE UNITS LAB GLUPOC Glucose Poc Glucometers 181 mg/dL Result Comment: Random Gluco se Reference Range is dependent on time and content of last meal. Glucose of more than 200 mg/dL in a nonstressed, ambulatory subject supports the diagnosis of Diabetes Mellitus. PERFORMED BY: [place] [address] PATHOLOGIST HYDRO ELECTRIC STATION OPERATOR FLORENCIO CORTEZ M.D. Performed By: #### GLULS ### # Point of Care testing , GLUCOSE POCT GLUCOMETERS Collected: 12/01/2024 11:27 AM Status: F Source: [facility] TYPE CODE TESTS RESULT OUT OF RANGE REFERENCE UNITS LAB GLUPOC Glucose Poc Glucometers 198 mg/dL Result Comment: Random Gluco se Reference Range is dependent on time and content of last meal. Glucose of more than 200 mg/dL in a nonstressed, ambulatory subject supports the diagnosis of Diabetes Mellitus. PERFORMED BY: [address] [address] PATHOLOGIST HYDRO ELECTRIC STATION OPERATOR FLORENCIO CORTEZ M.D. Performed By: #### GLULS ### # Point of Care testing , GLUCOSE POCT GLUCOMETERS Collected: 12/01/2024 7:37 A M Status: F Source: [facility] TYPE CODE TESTS RESULT OUT OF RANGE REFERENCE UNITS LAB GLUPOC Glucose Poc Glucometers 167 mg/dL Result Comment: Random Gluco se Reference Range is dependent on time and content of last meal. Glucose of more than 200 mg/dL in a nonstressed, ambulatory subject supports the diagnosis of Diabetes Mellitus. PERFORMED BY: [facility] [place] [address] PATHOLOGIST HYDRO ELECTRIC STATION OPERATOR FLORENCIO CORTEZ M.D. Performed By: #### GLULS ### # Point of Care testing , COMPLETE BLOOD COUNT AUTO DIFF Collected: 12/01/2024 4:53 AM Status: F Source: F [facility] TYPE CODE TESTS RESULT OUT OF RANGE REFERENCE UNITS LAB WBC White Blood Count 7.9 Normal 4.1-10.5 [CFU]/mL LAB UNWBC Uncorrected WBC 7.9 Normal 4.1-10.5 10*3/uL LAB RBC Red Blood Count 2.27 Low 3.90-5.60 10*6/u L LAB HGB Hemoglobin 6.9 Low 13.0-17.0 g/dL LAB HCT Hematocrit 19.9 Low Off Scale 38.8-50.0 % Result Comment: Critical storm ue result called at 0542 on 12/01/24 LAB MCV Mean Corpuscular Volume 87.5 Normal 83.5-101 fL LAB MCH Mean Corpuscular Hemoglobin 30.5 Normal 27.5-35.2 pg LAB MCHC Mean Corpuscular HGB Conc 34.8 Normal 32.5-35.6 g/dL LAB RDW Red Cell Distribution Width 12.5 Normal 12.0-14.8 % LAB PLT Platelet Count 252 Normal 150-450 10*3/uL LAB MPV Mean Platelet Volume 7.5 Normal 6.6-10.1 fL LAB NE% Neutrophils % (Auto) 67.2 . % LAB LY% Lymphocytes % (Auto) 23.5 . % LAB MO% Monocytes % (Auto) 5.0 . % LAB EO% Eosinophils % (Auto) 3.8 . % LAB BA% Basophils % (Auto) 0.5 . % LAB NRBC% NRBC% 0.1 Normal 0-0.5 /100{WBC} LAB NE# Neutrophils # (Auto) 5.3 Normal 1.8-7.7 10*3/uL LAB LY# Lymphocytes # (Auto) 1.9 Normal 1.00-4.8 10*3/uL LAB MO# Monocytes # (Auto) 0.4 Normal 0.0-0.8 10*3/uL LAB EO# Eosinophils # (Auto) 0.3 Normal 0.0-0.45 10*3/uL LAB BA# Basophils # (Auto) 0.0 Normal 0.0-0.2 10*3/uL Result Comment: PERFORMED BY : [place] [address] PATHOLOGIST HYDRO ELECTRIC STATION OPERATOR FLORENCIO CORTEZ M.D. Performed By: #### BMP, CBC #### [address] [address] [facility] BASIC METABOLIC PANEL Collected: 12/01/2024 4:53 AM Status: F Source: [facility] TYPE CODE TESTS RESULT OUT OF RANGE REFERENCE UNITS LAB GLU Glucose 130 High 70-100 mg/dL Result Comment: Random Gluco se Reference Range is dependent on time and content of last meal. Glucose of more than 200 mg/dL in a nonstressed, ambulatory subject supports the diagnosis of Diabetes Mellitus. ADA recommended reference range LAB BUN Blood Urea Nitrogen 20 Normal 7-25 mg/dL LAB CREATT Creatinine 0.83 Normal 0.70-1.30 mg/dL LAB GFReNR Estimated GFR >60.0 LAB NA Sodium 138 Normal 136-145 mmol/L LAB K Potassium 4.2 Normal 3.5-5.1 mmol/L LAB CL Chloride 105 Normal 98-107 mmol/L LAB CO2 Carbon Dioxide 28.9 Normal 21.0-31.0 mmol/L LAB GAP Anion Gap 8.3 Normal 6.0-15.0 LAB CA Calcium 8.4 Low 8.6-10.3 mg/dL LAB CRCLPHA Creatinine Clr Calc Pharmacy 88.82 Result Comment: PERFORMED BY : [place] [address] PATHOLOGIST HYDRO ELECTRIC STATION OPERATOR FLORENCIO CORTEZ M.D. Performed By: #### BMP, CBC #### [address] [address] [facility] GLUCOSE POCT GLUCOMETERS Collected: 11/30/2024 9:41 P M Status: F Source: [facility] TYPE CODE TESTS RESULT OUT OF RANGE REFERENCE UNITS LAB GLUPOC Glucose Poc Glucometers 133 mg/dL Result Comment: Random Gluco se Reference Range is dependent on time and content of last meal. Glucose of more than 200 mg/dL in a nonstressed, ambulatory subject supports the diagnosis of Diabetes Mellitus. PERFORMED BY: [place] [address] PATHOLOGIST HYDRO ELECTRIC STATION OPERATOR FLORENCIO CORTEZ M.D. Performed By: #### GLULS ### # Point of Care testing , HEMOGLOBIN AND HEMATOCRIT Collected: 5:39 PM Status: F Source: [facility] TYPE CODE TESTS RESULT OUT OF RANGE REFERENCE UNITS LAB HGB Hemoglobin 7.2 Low 13.0-17.0 g/dL LAB HCT Hematocrit 21.0 Low 38.8-50.0 % Result Comment: PERFORMED BY : [place] [address] PATHOLOGIST HYDRO ELECTRIC STATION OPERATOR FLORENCIO CORTEZ M.D. Performed By: #### HH #### [place] [id number] [facility] GLUCOSE POCT GLUCOMETERS Collected: 11/30/2024 4:27 P M Status: F Source: [facility] TYPE CODE TESTS RESULT OUT OF RANGE REFERENCE UNITS LAB GLUPOC Glucose Poc Glucometers 228 mg/dL Result Comment: Random Gluco se Reference Range is dependent on time and content of last meal. Glucose of more than 200 mg/dL in a nonstressed, ambulatory subject supports the diagnosis of Diabetes Mellitus. PERFORMED BY: [place] [address] PATHOLOGIST HYDRO ELECTRIC STATION OPERATOR FLORENCIO CORTEZ M.D. Performed By: #### GLULS ### # Point of Care testing , HEMOGLOBIN AND HEMATOCRIT Collected: 2:50 PM Status: F Source: [facility] TYPE CODE TESTS RESULT OUT OF RANGE REFERENCE UNITS LAB HGB Hemoglobin 7.5 Low 13.0-17.0 g/dL LAB HCT Hematocrit 21.9 Low 38.8-50.0 % Result Comment: PERFORMED BY : [place] [address] PATHOLOGIST HYDRO ELECTRIC STATION OPERATOR FLORENCIO CORTEZ M.D. Performed By: #### HH #### [place] [id number] [facility] GLUCOSE POCT GLUCOMETERS Collected: 11/30/2024 11:19 AM Status: F Source: [facility] TYPE CODE TESTS RESULT OUT OF RANGE REFERENCE UNITS LAB GLUPOC Glucose Poc Glucometers 227 mg/dL Result Comment: Random Gluco se Reference Range is dependent on time and content of last meal. Glucose of more than 200 mg/dL in a nonstressed, ambulatory subject supports the diagnosis of Diabetes Mellitus. PERFORMED BY: [place] [address] PATHOLOGIST HYDRO ELECTRIC STATION OPERATOR FLORENCIO CORTEZ M.D. Performed By: #### GLULS ### # Point of Care testing , GLUCOSE POCT GLUCOMETERS Collected: 11/30/2024 7:41 A M Status: F Source: [facility] TYPE CODE TESTS RESULT OUT OF RANGE REFERENCE UNITS LAB GLUPOC Glucose Poc Glucometers 174 mg/dL Result Comment: Random Gluco se Reference Range is dependent on time and content of last meal. Glucose of more than 200 mg/dL in a nonstressed, ambulatory subject supports the diagnosis of Diabetes Mellitus. PERFORMED BY: [place] [id number] PATHOLOGIST HYDRO ELECTRIC STATION OPERATOR FLORENCIO CORTEZ M.D. Performed By: #### GLULS ### # Point of Care testing , COMPLETE BLOOD COUNT AUTO DIFF Collected: 11/30/2024 6:12 AM Status: F Source: [facility] Order Comment: FIRST SPECIME N QUESTIONABLE TYPE CODE TESTS RESULT OUT OF RANGE REFERENCE UNITS LAB WBC White Blood Count 8.6 Normal 4.1-10.5 [CFU]/mL LAB UNWBC Uncorrected WBC 8.6 Normal 4.1-10.5 10*3/uL LAB RBC Red Blood Count 2.26 Low 3.90-5.60 10*6/u L LAB HGB Hemoglobin 6.8 Low 13.0-17.0 g/dL LAB HCT Hematocrit 19.6 Low Off Scale 38.8-50.0 % Result Comment: Critical storm ue result called at 0644 on 11/30/24 LAB MCV Mean Corpuscular Volume 86.7 Normal 83.5-101 fL LAB MCH Mean Corpuscular Hemoglobin 29.9 Normal 27.5-35.2 pg LAB MCHC Mean Corpuscular HGB Conc 34.5 Normal 32.5-35.6 g/dL LAB RDW Red Cell Distribution Width 12.5 Normal 12.0-14.8 % LAB PLT Platelet Count 253 Normal 150-450 10*3/uL LAB MPV Mean Platelet Volume 7.2 Normal 6.6-10.1 fL LAB NE% Neutrophils % (Auto) 67.7 . % LAB LY% Lymphocytes % (Auto) 23.3 . % LAB MO% Monocytes % (Auto) 4.2 . % LAB EO% Eosinophils % (Auto) 4.4 . % LAB BA% Basophils % (Auto) 0.4 . % LAB NRBC% NRBC% 0.1 Normal 0-0.5 /100{WBC } LAB NE# Neutrophils # (Auto) 5.8 Normal 1.8-7.7 10*3/uL LAB LY# Lymphocytes # (Auto) 2.0 Normal 1.00-4.8 10*3/uL LAB MO# Monocytes # (Auto) 0.4 Normal 0.0-0.8 10*3/uL LAB EO# Eosinophils # (Auto) 0.4 Normal 0.0-0.45 10*3/uL LAB BA# Basophils # (Auto) 0.0 Normal 0.0-0.2 10*3/uL Result Comment: PERFORMED BY : [place] [address] PATHOLOGIST HYDRO ELECTRIC STATION OPERATOR FLORENCIO CORTEZ M.D. Performed By: #### CBC #### [address] BASIC METABOLIC PANEL Collected: 11/30/2024 4:56 AM Status: F Source: [facility] TYPE CODE TESTS RESULT OUT OF RANGE REFERENCE UNITS LAB GLU Glucose 112 High 70-100 mg/dL Result Comment: Random Gluco se Reference Range is dependent on time and content of last meal. Glucose of more than 200 mg/dL in a nonstressed, ambulatory subject supports the diagnosis of Diabetes Mellitus. ADA recommended reference range LAB BUN Blood Urea Nitrogen 28 High 7-25 mg/dL LAB CREATT Creatinine 0.81 Normal 0.70-1.30 mg/dL LAB GFReNR Estimated GFR >60.0 LAB NA Sodium 138 Normal 136-145 mmol/L LAB K Potassium 4.2 Normal 3.5-5.1 mmol/L LAB CL Chloride 107 Normal 98-107 mmol/L LAB CO2 Carbon Dioxide 27.2 Normal 21.0-31.0 mmol/L LAB GAP Anion Gap 8.0 Normal 6.0-15.0 LAB CA Calcium 8.2 Low 8.6-10.3 mg/dL LAB CRCLPHA Creatinine Clr Calc Pharmacy 91.29 Result Comment: PERFORMED BY : [place] [address] PATHOLOGIST HYDRO ELECTRIC STATION OPERATOR FLORENCIO CORTEZ M.D. Performed By: #### BMP #### [address] GLUCOSE POCT GLUCOMETERS Collected: 11/29/2024 8:39 P M Status: F Source: [facility] TYPE CODE TESTS RESULT OUT OF RANGE REFERENCE UNITS LAB GLUPOC Glucose Poc Glucometers 254 mg/dL Result Comment: Random Gluco se Reference Range is dependent on time and content of last meal. Glucose of more than 200 mg/dL in a nonstressed, ambulatory subject supports the diagnosis of Diabetes Mellitus. PERFORMED BY: [place] [address] PATHOLOGIST HYDRO ELECTRIC STATION OPERATOR FLORENCIO CORTEZ M.D. Performed By: #### GLULS ### # Point of Care testing , GLUCOSE POCT GLUCOMETERS Collected: 11/29/2024 6:17 P M Status: F Source: [facility] TYPE CODE TESTS RESULT OUT OF RANGE REFERENCE UNITS LAB GLUPOC Glucose Poc Glucometers 118 mg/dL Result Comment: Random Gluco se Reference Range is dependent on time and content of last meal. Glucose of more than 200 mg/dL in a nonstressed, ambulatory subject supports the diagnosis of Diabetes Mellitus. LAB COMM1 Commemt1 Glu2: Cleaned Meter Result Comment: PERFORMED BY : [address] [place] [address] PATHOLOGIST HYDRO ELECTRIC STATION OPERATOR FLORENCIO CORTEZ M.D. Performed By: #### GLULS ### # Point of Care testing , GLUCOSE POCT GLUCOMETERS Collected: 11/29/2024 1:11 P M Status: F Source: [facility] TYPE CODE TESTS RESULT OUT OF RANGE REFERENCE UNITS LAB GLUPOC Glucose Poc Glucometers 158 mg/dL Result Comment: Random Gluco se Reference Range is dependent on time and content of last meal. Glucose of more than 200 mg/dL in a nonstressed, ambulatory subject supports the diagnosis of Diabetes Mellitus. PERFORMED BY: [address] [address] PATHOLOGIST HYDRO ELECTRIC STATION OPERATOR FLORENCIO CORTEZ M.D. Performed By: #### GLULS ### # Point of Care testing , XR CHEST 2V* Observed: 11/29/2024 8:15 AM Status: COMPLETED Source: [facility] Main [place] [id number] XRay Report Signed Patient: Jesse Garrison MR#: [id number] : 1950 Acct:[id number] Age/Sex: 74 / M ADM Date: 11/29/24 Loc: ER Room: Type: [facility] ER Attending Dr: Copies to: Carri Shoemaker MD Ordering Provider: Carri Shoemaker MD Date of Service: 11/29/24 XR/XR chest 2V*: Dizziness XR chest 2V* 11/29/2024 6:08 AM SIGNS AND SYMPTOMS: Dizziness, shortness breath, intermittent nausea PROTOCOL: Frontal and lateral radiograph of the chest COMPARISON: 03/21/2024 FINDINGS: The trachea is midline. The heart and mediastinal structures are within normal limits. The lung parenchyma is clear. The bony thorax is intact. Degenerative changes are noted in the thoracic sp ine. Degenerative changes are noted in the shoulders. XR/XR chest 2V* IMPRESSION: No acute cardiopulmonary pathology. Impression dictated by: Jase Owusu M.D. 11/29/2024 8:15 AM Dictation Location: RADIO-PC-24 Transcribed By: PWS 11/29/24814 Dictated By: Jase Owusu II, MD 11/29/24814 Signed By: <Electronically signed by Jase Owusu II, MD in OV> 11/29/24814 TYPE AND SCREEN Collected: 11/29/2024 8:10 AM Status : F Source: [facility] Order Comment: Transfuse now ? Y Number of units to transfuse now? 1Transfuse now? Y Number of units to transfuse now? 1 TYPE CODE TESTS RESULT OUT OF RANGE REFERENCE UNITS LAB BTV Blood Type O Positive Result Comment: PERFORMED BY : [place] [address] PATHOLOGIST HYDRO ELECTRIC STATION OPERATOR FLORENCIO CORTEZ M.D. LAB ABS Antibody Screen NEGATIVE Result Comment: PERFORMED BY : [place] [address] PATHOLOGIST HYDRO ELECTRIC STATION OPERATOR FLORENCIO CORTEZ M.D. LEUKOREDUCED RBC Collected: 11/29/2024 8:10 AM Statu s: F Source: [facility] TYPE CODE TESTS RESULT OUT OF RANGE REFERENCE UNITS LAB RCLR(LOINC) LeukoReduced RBC TRANSFUSED 11/30/24 0913 TROPONIN I HIGH SENSITIVITY Collected: 11/29/2024 8:1 0 AM Status: F Source: [facility] TYPE CODE TESTS RESULT OUT OF RANGE REFERENCE UNITS LAB HS TROP Troponin I High Sensitivity 3 Normal 0-20 Result Comment: The Troponin units of report have been changed to meet the Chest Pain Accreditation requirement, element EC5.M1l2. Troponin units are changed from pg/ml to ng/L. Also, the decimal is removed and results are in whole numbers. PERFORMED BY: [place] [id number] PATHOLOGIST HYDRO ELECTRIC STATION OPERATOR FLORENCIO CORTEZ M.D. Performed By: #### HS TROP # ### [place] [id number] [facility] STOOL OCCULT BLOOD (GUAIAC) Observed: 11/29/2024 6:35 AM Status: F Source: [facility] Occult Blood Positive for Occult Blood by Guaiac Methodology Reference range = Negative PERFORMED BY: [facility] [address] [place] [id number] PATHOLOGIST HYDRO ELECTRIC STATION OPERATOR FLORENCIO CORTEZ M.D. Performed By: #### OB(GUAIAC ) #### [facility] [address] [place] [id number] [facility] COVID-19 / FLU A/B / RSV PCR Observed: 0 11/29/2024 6:30 AM Status: F Source: [facility] COVID-19 Cepheid Result Negative for SARS-CoV-2 RNA by RT-PCR Flu A Cepheid Result Negative for Flu A RNA by RT-PCR Flu B Cepheid Result Negative for Flu B RNA by RT-PCR RSV Cepheid Result Negative for RSV RNA by RT-PCR COVID19 Blank Space Reference: Negative COVID19 Blank Space Cepheid Disclaimer The Cepheid Xpert Xpress CoV-2/Flu/RSV Plus has Cepheid Disclaimer not been FDA cleared or approved; this test has Cepheid Disclaimer been authorized by FDA under an EUA for use by Cepheid Disclaimer authorized laboratories; this test has been Cepheid Disclaimer authorized only for the simultaneous qualitative Cepheid Disclaimer detection and differentiation of nucleic acids from Cepheid Disclaimer SARS-CoV-2, influenza A, influenza B, and Cepheid Disclaimer respiratory syncytial virus (RSV), and not for any Cepheid Disclaimer other viruses or pathogens; and this test is only Cepheid Disclaimer authorized for the duration of the declaration that Cepheid Disclaimer circumstances exist justifying the authorization of Cepheid Disclaimer emergency use of in vitro diagnostic tests for Cepheid Disclaimer detection and/or diagnosis of COVID-19 under Cepheid Disclaimer Section 564(b)(1) of the Act, 21 U.S.C. 360bbb- Cepheid Disclaimer 3(b)(1), unless the authorization is terminated or Cepheid Disclaimer revoked sooner. PERFORMED BY: [place] [address] PATHOLOGIST HYDRO ELECTRIC STATION OPERATOR FLORENCIO CORTEZ M.D. Performed By: #### CEPHEID N EG, COVID19 FLU RSV #### [place] [id number] [facility] CEPHEID COVID PCR NEGATIVE Collected: 0 11/29/2024 6:30 AM Status: F Source: [facility] TYPE CODE TESTS RESULT OUT OF RANGE REFERENCE UNITS LAB CEPHEID NEG Cepheid COVID PCR Negative Negative Negative Result Comment: This is a du plicate Cepheid Xpert Xpress CoV-2/Flu/RSV Plus RNA by RT-PCR result to be used for statistical tracking purpose only. PERFORMED BY: [place] [address] PATHOLOGIST HYDRO ELECTRIC STATION OPERATOR FLORENCIO CORTEZ M.D. Performed By: #### CEPHEID N EG, COVID19 FLU RSV #### [place] [id number] [facility] COMPLETE BLOOD COUNT AUTO DIFF Collected: 11/29/2024 5:52 AM Status: F Source: [facility] TYPE CODE TESTS RESULT OUT OF RANGE REFERENCE UNITS LAB WBC White Blood Count 12.9 High 4.1-10.5 [CFU]/mL LAB UNWBC Uncorrected WBC 12.9 High 4.1-10.5 10*3/uL LAB RBC Red Blood Count 3.36 Low 3.90-5.60 10*6/u L LAB HGB Hemoglobin 9.8 Low 13.0-17.0 g/dL LAB HCT Hematocrit 29.3 Low 38.8-50.0 % LAB MCV Mean Corpuscular Volume 87.2 Normal 83.5-101 fL LAB MCH Mean Corpuscular Hemoglobin 29.3 Normal 27.5-35.2 pg LAB MCHC Mean Corpuscular HGB Conc 33.6 Normal 32.5-35.6 g/dL LAB RDW Red Cell Distribution Width 12.8 Normal 12.0-14.8 % LAB PLT Platelet Count 330 Normal 150-450 10*3/uL LAB MPV Mean Platelet Volume 7.4 Normal 6.6-10.1 fL LAB MDW Monocyte Distribution Width 15.64 Normal 0.00-20.00 % LAB NE% Neutrophils % (Auto) 70.2 . % LAB LY% Lymphocytes % (Auto) 22.3 . % LAB MO% Monocytes % (Auto) 3.5 . % LAB EO% Eosinophils % (Auto) 3.5 . % LAB BA% Basophils % (Auto) 0.5 . % LAB NRBC% NRBC% 0.1 Normal 0-0.5 /100{WBC } LAB NE# Neutrophils # (Auto) 9.1 High 1.8-7.7 10*3/uL LAB LY# Lymphocytes # (Auto) 2.9 Normal 1.00-4.8 10*3/uL LAB MO# Monocytes # (Auto) 0.5 Normal 0.0-0.8 10*3/uL LAB EO# Eosinophils # (Auto) 0.4 Normal 0.0-0.45 10*3/uL LAB BA# Basophils # (Auto) 0.1 Normal 0.0-0.2 10*3/uL Result Comment: PERFORMED BY : [place] [address] PATHOLOGIST HYDRO ELECTRIC STATION OPERATOR FLORENCIO CORTEZ M.D. Performed By: #### BMP, BNP, CBC, HS TROP #### [address] BASIC METABOLIC PANEL Collected: 11/29/2024 5:52 AM Status: F Source: [facility] TYPE CODE TESTS RESULT OUT OF RANGE REFERENCE UNITS LAB GLU Glucose 161 High 70-100 mg/dL Result Comment: Random Gluco se Reference Range is dependent on time and content of last meal. Glucose of more than 200 mg/dL in a nonstressed, ambulatory subject supports the diagnosis of Diabetes Mellitus. ADA recommended reference range LAB BUN Blood Urea Nitrogen 46 High 7-25 mg/dL LAB CREATT Creatinine 0.85 Normal 0.70-1.30 mg/dL LAB GFReNR Estimated GFR >60.0 LAB NA Sodium 138 Normal 136-145 mmol/L LAB K Potassium 4.3 Normal 3.5-5.1 mmol/L LAB CL Chloride 107 Normal 98-107 mmol/L LAB CO2 Carbon Dioxide 24.9 Normal 21.0-31.0 mmol/L LAB GAP Anion Gap 10.4 Normal 6.0-15.0 LAB CA Calcium 8.5 Low 8.6-10.3 mg/dL LAB CRCLPHA Creatinine Clr Calc Pharmacy 85.55 Result Comment: PERFORMED BY : [place] [address] PATHOLOGIST HYDRO ELECTRIC STATION OPERATOR FLORENCIO CORTEZ M.D. Performed By: #### BMP, BNP, CBC, HS TROP #### [place] [id number] [facility] B-TYPE NATRIURETIC PEPTIDE Collected: 11/29/2024 5:52 AM Status: F Source: [facility] TYPE CODE TESTS RESULT OUT OF RANGE REFERENCE UNITS LAB BNP B-Type Natriuretic Peptide 8.0 Normal 5-100 pg/mL Result Comment: PERFORMED BY : [place] [address] PATHOLOGIST HYDRO ELECTRIC STATION OPERATOR FLORENCIO CORTEZ M.D. Performed By: #### BMP, BNP, CBC, HS TROP #### [place] [id number] [facility] TROPONIN I HIGH SENSITIVITY Collected: 11/29/2024 5:5 2 AM Status: F Source: [facility] TYPE CODE TESTS RESULT OUT OF RANGE REFERENCE UNITS LAB HS TROP Troponin I High Sensitivity 4 Normal 0-20 Result Comment: The Troponin units of report have been changed to meet the Chest Pain Accreditation requirement, element EC5.M1l2. Troponin units are changed from pg/ml to ng/L. Also, the decimal is removed and results are in whole numbers. PERFORMED BY: [place] [address] PATHOLOGIST HYDRO ELECTRIC STATION OPERATOR FLORENCIO CORTEZ M.D. Performed By: #### BMP, BNP, CBC, HS TROP #### [place] [id number] [facility] PROTHROMBIN TIME INR Collected: 11/29/2024 5:52 AM S tatus: F Source: [facility] TYPE CODE TESTS RESULT OUT OF RANGE REFERENCE UNITS LAB R PT Prothrombin Time 12.2 Normal 9.0-12.9 s Result Comment: A hematocrit value greater than 55% may lead to inaccurate results in coagulation testing. Patients having hematocrit values >55% require a special collection tube for coagulation studies. Please contact the laboratory at [phone] for redraw instructions. LAB INR INR 1.1 Result Comment: INR Therapeu tic Range A) Pre- and Peroperative OAT started [...] valves: 3 - 4.5 Performed By: #### PT, PTT # ### [address] [address] [facility] PARTIAL THROMBOPLASTIN TIME Collected: 11/29/2024 5:5 2 AM Status: F Source: [facility] TYPE CODE TESTS RESULT OUT OF RANGE REFERENCE UNITS LAB PTT Partial Thromboplastin Time 23.8 Low 25.1-36.5 s Result Comment: A hematocrit value greater than 55% may lead to inaccurate results in coagulation testing. Patients having hematocrit values >55% require a special collection tube for coagulation studies. Please contact the laboratory at [phone] for redraw instructions. PERFORMED BY: [place] [address] PATHOLOGIST HYDRO ELECTRIC STATION OPERATOR FLORENCIO CORTEZ M.D. Performed By: #### PT, PTT # ### [facility] [address] [place], [place] [id number] [facility] ECG 12 LEAD ECG Observed: 11/29/2024 5:45 AM Status: COMPLETED Source: [facility] Main [address] [address] Electrocardiograph Report Signed Patient: Jesse Garrison MR#: [id number] : 1950 Acct:[id number] Age/Sex: 74 / M ADM Date: 11/29/24 Loc: ER Room: Type: [facility] ER Attending Dr: Ordering Provider: Carri Shoemaker MD Date of Service: 11/29/24 ECG/ECG 12 lead ECG: Dizziness Copies to: Test Reason : Blood Pressure : 128/60 mmHG Vent. Rate : 91 BPM Atrial Rate : 91 BPM P-R Int : 144 ms QRS Dur : 128 ms QT Int : 388 ms P-R-T Axes : 40 -79 55 degrees QTcB Int : 477 ms Sinus rhythm with occasional premature ventricular complexes Left axis deviation Right bundle branch block Confirmed by Carri Shoemaker MD ([id number]) on 11/29/2024 6:47:22 AM Referred By: Electronically Signed By: Carri Shoemaker MD Transcribed By: MUS Signed By Carri Shoemaker MD 11/1147 UROVYSION FISH AND URINE CYT O (P4 LABS) Collected: 11/13/2024 8:21 AM Status: F Source: [facility] TYPE CODE TESTS RESULT OUT OF RANGE REFERENCE UNITS LAB CD:[id number](L OINC) UVFISH & UC Diagnosis Info Unknown Result Comment: A:Urine,Blad shelley Wash:Bladder Wash Diagnosis Summary - Adequate cellularity for evaluation. Diagnosis Summary - The UroVysion FISH study detected normal copy numbers for chromosomes 3, 7, 17, and 9p21. 78 cells were analyzed in this evaluation. No evidence of aneuploidy for chromosomes 3, 7, or 17 or deletion of the 9p21 locus was found in cells present in this specimen. This test does not rule out the possibility of a low grade non-invasive papillary urothelial carcinoma. These findings should be correlated with cytology and cystoscopy results. * CPT: 59229, 72763. Microscopic Notes - Microscopic Notes - Abnormal cells 9p21 deletions: Abnormal cells aneploid events: Total cells analyzed: 78 Hematuria: Gross Description Site ID:A color Yellow fixative Alcohol Received 90 mls of clear yellow fluid with the patient's name and, Bladder Wash on the vial. Electronically signed by : on: 11/19/2024 11:14:02 LAB CD:[id number](L OINC) [facility] Number of Jars 1 Unknown LAB CD:[id number](L OINC) [facility] Type of Service Technical Only Normal LAB CD:[id number](L OINC) [facility] Method of Extraction Bladder Wash Normal LAB CD:[id number](L OINC) [facility] Specimen Bladder Wash Normal Performed By: #### [id number] #### [facility] [address] [place] [address] PATIENT EDUCATION Observed: 11/13/2024 8:03 AM Status: F Source: [facility] Patient Education Oncology Cancer Screening for Males [...] screenings for other types of cancer if: ??? You have had cancer before. ??? You have a family member with cancer. ??? You have genes that could increase the risk of cancer. ??? You have risk factors for certain cancers, [...] should be screened for cancer depends on: ??? Your age. ??? Your medical history and your family's medical history. ??? Certain lifestyle factors, such as smoking or other use of tobacco products. ??? Environmental exposure, such as to asbestos. How is screening done? Colorectal cancer Colorectal cancer screening looks for cancer or for growths called polyps that often form before cancer starts. Tests to look for cancer or polyps include: ??? Colonoscopy or flexible sigmoidoscopy. For these procedures, a flexible tube with a small camera is inserted into the rectum. ??? CT colonography. This test uses X-rays and a contrast dye to check the colon for polyps. Tests to look for cancer in the stool (feces) include: ??? Guaiac-based fecal occult blood test (FOBT). This test can find blood in stool. It can be done at home with a kit. ??? Fecal immunochemical test (FIT). This test can find blood in stool. For this test, you will need to collect stool samples at home. ??? Stool DNA test. This test looks for [...] to be screened for prostate cancer if: ??? You have risk factors for prostate cancer, such as being an person or having a close family member with prostate cancer. ??? You have had gene changes or a genetic condition that was passed on to you from a parent (inherited). These gene changes or genetic conditions include BRCA1 or BRCA2 gene mutations or Jones syndrome. ??? You have symptoms of prostate cancer, such [...] any of the following apply to you: ??? You currently smoke. ??? You used to smoke heavily. ??? You have a smoking history of 1 [...] if anything looks unusual. Males with a hjwhev-ugas-cykiav risk for skin cancer may want to see a warehouse specialist (computer clerk) for an annual body check. Where to find more information ??? [employer]: cancer.org ??? Centers for Disease Control and Prevention: cdc.gov ??? National Cancer [place]: cancer.gov Contact a health care provider if: ??? You have concerns about any signs or symptoms of cancer. These may include: ? Skin problems. You may have: ? Moles of an unusual shape or color. ? Changes in existing moles. ? A sore on your skin that does not heal. ? Tiredness (fatigue) that does not go away. ? Losing weight without trying. ? Blood in your urine or stool. ? Problems with urination. You may have: ? Changes in urination habits. ? Painful urination. ? Painful ejaculation. ? Problems with coughing or breathing. These may include: ? Coughing or trouble breathing that does not go away. ? Coughing up blood. ? Frequent pain or cramping in your abdomen. This information is not intended to replace advice given to you by your health care provider. Make sure you discuss any questions you have with your health care provider. Document Revised: 03/07/2023 Document Reviewed: 09/19/2022 [employer] Patient Education ? 2023 [employer]. AMBULATORY VISIT SUMMARY Observed: 11/13 7:33 AM Status: F Source: [facility] Ambulatory Visit Summary JESSE GARRISON :1950 Visit Date:11/13/2024 Ambulatory Visit Instructions Your Diagnosis Hx of bladder cancer Elevated PSA Enlarged prostate with urinary obstruction Your Care Team Attending Physician - MACI BLAKE, Randall Garcia Primary Care Physician - ANTONI COHN DO This Is Your Medications List Contact prescribing physician if questions or concerns aspirin (aspirin 81 mg Oral EC Tab) atorvastatin (atorvastatin 80 mg Tab) empagliflozin (empagliflozin 25 mg oral tablet) gabapentin (gabapentin 100 mg Cap) glimepiride (glimepiride 2 mg Tab) lisinopril (lisinopril 20 mg Tab) metformin (metformin 1000 mg Tab) ticagrelor (ticagrelor 90 mg oral tablet) Procedures Performed Cystoscopy (11/15/2023), Cystoscopy (05/31/2023), Cystoscopy (05/18/2022), Cystoscopy (10/27/2021), Cystoscopy (07/28/2021), Cystoscopy (04/21/2021), Cystoscopy (01/20/2021), Cystoscopy (10/14/2020), Cystoscopy (06/17/2020), Cystoscopy (03/03/2020), Ablation of neoplasm of urinary bladder using laser (11/19/2019), Cystoscope (11/05/2019), Cystoscopy (07/30/2019), Cystoscope (02/20/2019), Cystoscopy (11/27/2018), Cystoscopy (08/21/2018), TURP - Transurethral resection of prostate (02/15/2018), Cystoscopy and transurethral resection of bladder tumour (01/25/2018), Urodynamics (01/16/2018), Colonoscopy, Cystoscopy, Knee replacement, Placement of stent in cardiac conduit. Discharge Vitals Heart Rate (Peripheral) 64 Respiratory Rate 20 Blood Pressure 125/67 Height 175 cm Height 69 in Weight 93.8 kg Weight 206.793 lb BMI 30.63 What to do next You Need to Schedule the Following Appointments Follow Up with MACI BLAKE, AUBREY Renteria When: Where: [facility] [address] , [place] [address]- Medications What How Much When Instructions Unchanged aspirin (aspirin 81 mg Oral EC Tab) Contact prescribing physician if questions or concerns Unchanged atorvastatin (atorvastatin 80 mg Tab) Contact prescribing physician if questions or concerns Unchanged empagliflozin (empagliflozin 25 mg oral tablet) Contact prescribing physician if questions or concerns Unchanged gabapentin (gabapentin 100 mg Cap) Contact prescribing physician if questions or concerns Unchanged glimepiride (glimepiride 2 mg Tab) Contact prescribing physician if questions or concerns Unchanged lisinopril (lisinopril 20 mg Tab) Contact prescribing physician if questions or concerns Unchanged metformin (metformin 1000 mg Tab) 1 Tablets By Mouth 2 times a day Contact prescribing physician if questions or concerns Unchanged ticagrelor (ticagrelor 90 mg oral tablet) Contact prescribing physician if questions or concerns Medications and Immunizations Administered Given lidocaine Top 2% Gel w/Appl 6 mL, 6 mL, Topical. For: Hx of bladder cancer, Elevated PSA, Enlarged prostate with urinary obstruction Allergies No Known Medication Allergies Problems Ongoing - Any problem that you are currently receiving treatment for. Bladder cancer BMI 28.0-28.9,adult CAD (coronary artery disease) Diabetes Elevated PSA Enlarged prostate with urinary obstruction History of skin cancer History of urinary retention Hx of bladder cancer Hx of hepatitis Hypertension Myocardial infarct Myocardial infarction (heart attack-[place]) Smoker Historical - Any problem that you [...] screenings for other types of cancer if: ??? You have had cancer before. ??? You have a family member with cancer. ??? You have genes that could increase the risk of cancer. ??? You have risk factors for certain cancers, [...] should be screened for cancer depends on: ??? Your age. ??? Your medical history and your family's medical history. ??? Certain lifestyle factors, such as smoking or other use of tobacco products. ??? Environmental exposure, such as to asbestos. How is screening done? Colorectal cancer Colorectal cancer screening looks for cancer or for growths called polyps that often form before cancer starts. Tests to look for cancer or polyps include: ??? Colonoscopy or flexible sigmoidoscopy. For these procedures, a flexible tube with a small camera is inserted into the rectum. ??? CT colonography. This test uses X-rays and a contrast dye to check the colon for polyps. Tests to look for cancer in the stool (feces) include: ??? Guaiac-based fecal occult blood test (FOBT). This test can find blood in stool. It can be done at home with a kit. ??? Fecal immunochemical test (FIT). This test can find blood in stool. For this test, you will need to collect stool samples at home. ??? Stool DNA test. This test looks for blood in stool and any changes in DNA that can lead to colon cancer. For this test, you will need to collect a stool sample at home and send it to a lab. All adults should have screenings starting at 45 years old and continuing through 75 years old. For males 76???85 years old, the decision to be screened should be based on a person's preferences, life expectancy, overall health, and prior screening history. Your health care provider may recommend screening before 45 years old. You will have tests every 1???10 years, depending on your results and the [...] to be screened for prostate cancer if: ??? You have risk factors for prostate cancer, such as being an person or having a close family member with prostate cancer. ??? You have had gene changes or a genetic condition that was passed on to you from a parent (inherited). These gene changes or genetic conditions include BRCA1 or BRCA2 gene mutations or Jones syndrome. ??? You have symptoms of prostate cancer, such [...] may need to be screened earlier, at 40???45 years old. Talk with your health care provider about whether screening is right for you and, if so, how often you should be screened. Lung cancer Lung cancer screening is done with a CT scan that looks for abnormal changes in the lungs. Discuss lung cancer screening with your health care provider if you are 50???80 years old and if any of the following apply to you: ??? You currently smoke. ??? You used to smoke heavily. ??? You have a smoking history of 1 [...] if anything looks unusual. Males with a gbxlsl-endy-gmqxih risk for skin cancer may want to see a warehouse specialist (computer clerk) for an annual body check. Where to find more information ??? [employer]: cancer.org ??? Centers for Disease Control and Prevention: cdc.gov ??? National Cancer [place]: cancer.gov Contact a health care provider if: ??? You have concerns about any signs or symptoms of cancer. These may include: ? Skin problems. You may have: ? Moles of an unusual shape or color. ? Changes in existing moles. ? A sore on your skin that does not heal. ? Tiredness (fatigue) that does not go away. ? Losing weight without trying. ? Blood in your urine or stool. ? Problems with urination. You may have: ? Changes in urination habits. ? Painful urination. ? Painful ejaculation. ? Problems with coughing or breathing. These may include: ? Coughing or trouble breathing that does not go away. ? Coughing up blood. ? Frequent pain or cramping in your abdomen. This information is not intended to replace advice given to you by your health care provider. Make sure you discuss any questions you have with your health care provider. Document Revised: 03/07/2023 Document Reviewed: 09/19/2022 Elsevier Patient Education ??? 2023 [email or web address] Patient Portal You may access all of your results and other medical record information on our secure patient portal. If you are not signed up for this yet, please contact [employer] at [phone] to get signed up today. Language Information Language assistance services are available as needed. UROLOGY OFFICE/CLINIC NOTE Observed: 05/2024 7:33 AM Status: F Source: [facility] Urology Office/Clinic Note Chief Complaint Patient is here for Cysto HPI Staff Cysto ABX taking, need fish/cytol History of Present Illness Tests reviewed: I have reviewed the previous health record [...] HPI. Physical Exam Vitals & Measurements HR: 64(Peripheral) RR: 20 BP: 125/67 HT: 69 in HT: 175 cm WT: 93.8 kg WT: 206.793 lb BMI: 30.63 General Appearance: alert, no distress, well nourished, well developed adult. Procedure Operative Information Anesthesia Type: Local Procedure: [...] Urethra is: Normal The Prostatic Urethra is: Unobstructed The Bladder: No tumors or stones, Trabeculated: Mild (1) The Ureteral orifices: Show [...] carcinoma. TURBT 11/11/21 - Chronic cystitis glandularis. Prior cysto 11/15/23. Pt had IO cysto to check for bladder tumor recurrence without complications today. Pt took prophylactic abx prior to procedure. Will send _ specimen for FISH/cytol and call pt if positive. Follow up 1 yr surveillance cysto/bt ck/FISH/cytol or sooner if needed. Pt understands and agrees with plan. 2. Elevated PSA (R97.20: Elevated prostate specific antigen [PSA]) PSA: 05/17/19 - 1.82 11/01/21 - 1.77 02/20/23 - 3.22 06/09/23 - 2.42 11/08/23 - 2.59 no recent level Pt is going to get a PSA level at the [place] in a month or so. -Check PSA from [place] in a month 3. Enlarged prostate with urinary obstruction (N40.1: Benign prostatic hyperplasia with lower urinary tract symptoms) S/p TURP 02/2018. Not taking any BPH or bladder meds. Follow-up With When Contact Information MACI BLAKE, Randall Garcia, [facility] [address], [place] [address]- Additional Instructions: 1 yr surveillance cysto/bt ck/FISH/cytol with PSA from [place] Patient Education Cancer Screening for Males I, Irma Vance, personally scribed for Dr. Molina on 11/13/2024 08:16:40. . Documentation recorded by the scribe, Irma Vance, accurately reflects the services(s) I performed and decisions made by me. Authenticated by Dr. Molina on 11/13/2024 08:18:27. Problem List/Past Medical History Ongoing Bladder cancer BMI 28.0-28.9,adult CAD (coronary artery disease) Diabetes Elevated PSA Enlarged prostate with urinary obstruction History of skin cancer History of urinary retention Hx of bladder cancer Hx of hepatitis Hypertension Myocardial infarct Myocardial infarction (heart attack-[place]) Smoker Historical Lesion of bladder Procedure/Surgical History [...] of bladder tumour (01/25/2018), Urodynamics (01/16/2018), Colonoscopy, Cystoscopy, Knee replacement, Placement of stent in cardiac conduit. Medications aspirin 81 mg Oral EC Tab atorvastatin 80 mg Tab empagliflozin 25 mg oral tablet gabapentin 100 mg Cap glimepiride 2 mg Tab lisinopril 20 mg Tab metformin 1000 mg Tab, 1000 mg= 1 tab(s), Oral, BID ticagrelor 90 mg oral tablet Allergies No Known Medication Allergies Social History Alcohol - Denies Alcohol Use, 11/27/2018 Never., 11/10/2024 Substance Abuse - Denies Substance Abuse, 11/27/2018 Tobacco - High Risk, 07/30/2019 Cigars or pipes daily within last 30 days, Smoker, current status unknown Tobacco Use:. Never Smokeless Tobacco Use:. Cigars, 11/13/2024 Family History Arthritis: Mother. Asthma: Mother. Diabetes: Mother. Primary malignant neoplasm of colon: Mother. Primary malignant neoplasm of lung: Father. Immunizations Vaccine Date Status Comments diphtheria/pertussis, acel/tetanus adult 08/24/2024 Recorded SARS-CoV-2 mRNA (vicky 5y-11y) vac - Not Given Patient Refuses Result Comment: Electronical ly Signed By: Randall MOLINA MD\.br\Date and Time Signed: 11/13/24 08:18 EDT\.br\Electronically Co-Signed By: Irma Vance\.br\Date and Time Co-Signed: 11/13/24 08:16 EDT XR L-SPINE AP+LATERAL 2-3 VIEWS Observed: 10/14/2024 5:00 PM Status: F Source: [facility] EXAMINATION: XR L-SPINE AP+L ATERAL 2-3 VIEWS 10/14/2024 09:20 AM CLINICAL HISTORY: ARTHRITIS ASSOCIATED DIAGNOSIS: Arthritis ORDERING PROVIDER: CHUCK OQUENDO TECHNOLOGISTS NOTE: COMPARISON: None FINDINGS: 5 nonrib-bearing lumbar-type vertebrae. Osteopenia. Trace stepwise retrolisthesis at L2-L3, L3-L4, and L4-L5. No acute compression deformity. Multilevel degenerative disc disease, most pronounced at L4-L5, moderate. Moderate to severe multilevel facet arthropathy. Aortic atherosclerotic calcifications. Degenerative changes within the right SI joint. IMPRESSION: 1. No acute fracture. 2. Multilevel lumbar spondylosis. MACRO: None XR FOOT RIGHT 3 VIEWS Observed: 10/15/19 4:58 PM Status: F Source: [facility] EXAMINATION: XR FOOT RIGHT 3 VIEWSPRO/RT 10/14/2024 09:21 AM CLINICAL HISTORY: ARTHRITIS ASSOCIATED DIAGNOSIS: Arthritis ORDERING PROVIDER: CHUCK OQUENDO TECHNOLOGISTS NOTE: COMPARISON: None IMPRESSION: The bones are osteopenic. No acute fracture or dislocation. Bipartite hallux sesamoid. Chronic posttraumatic deformities along the first and second proximal phalanx bases. Scattered degenerative changes, most pronounced at the second tarsometatarsal joint, severe. Plantar and posterior calcaneal enthesophytes. No radiopaque foreign bodies. Right foot MACRO: None XR KNEE LEFT AP+LAT 2 VIEWS Observed: 10/14/2024 4:52 PM Status: F Source: [facility] EXAMINATION: XR KNEE LEFT AP +LAT 2 VIEWSPRO/LT 10/14/2024 09:20 AM CLINICAL HISTORY: ARTHRITIS ASSOCIATED DIAGNOSIS: Arthritis ORDERING PROVIDER: CHUCK OQUENDO TECHNOLOGISTS NOTE: COMPARISON: None FINDINGS: IMPRESSION: Status post left knee arthroplasty. No signs of loosening. No acute fracture or dislocation. Small joint effusion. Left knee MACRO: None REMINDERS Observed: 09/19/2024 2:26 PM Status: F Source: [facility] Reminders From: Sammie Padilla To: EU - Recalls Molina; Sent: 09/19/2024 14:26:09 EDT Show up: 08/11/2025 14:26:00 EDT Subject: cysto/FISH/cytol/PSA Due Date/Time: 09/08/2025 14:26:00 EDT Reminder/Recall Patient is due in Nov 2025 for 1 year cysto/fish/cytol/psa (bt ck) XR CHEST 2V* Observed: 03/21/2024 8:42 AM Status: COMPLETED Source: [facility] [place] [address] XRay Report Signed Patient: Jesse Garrison MR#: [id number] : 1950 Acct:[id number] Age/Sex: 74 / M ADM Date: 03/21/24 Loc: Room: Type: [facility] Attending Dr: Antoni Cohn DO Copies to: [...] Dallas Mendoza M.D.03/21/2024 8:45 AM Dictation Location: [place] [address] Transcribed By: [facility] 03/21/24 0845 Dictated By: Dallas Mendoza MD 03/21/24 0842 Signed By: <Electronically signed by Dallas Mednoza MD in [place]> 03/21/24 0845 A1C WITH ESTIMATED AVERAGE GLU Collected: 03/21/2024 8:10 AM Status: F Source: [facility] TYPE CODE TESTS RESULT OUT OF RANGE REFERENCE UNITS LAB .A1C Hemoglobin A1C 8.4 High 4.3-5.6 % Result Comment: Increased ri sk for diabetes: 5.7 - 6.4 diabetes: >6.4 glycemic control for adults with diabetes: <7.0 LAB eAG Estimated Average Glucose 194 mg/dL Result Comment: PERFORMED BY : [place] [address] PATHOLOGIST HYDRO ELECTRIC STATION OPERATOR CLAUDY BARBOZA M.D. Performed By: #### A1C WTH e A #### [address] ECH ECHO TRANSTHORACIC Observed: 025 7:48 AM Status: COMPLETED Source: [facility] Main [place] [address] [place] [address] Echocardiogram Signed Patient: Jesse Garrison MR#: [id number] : 1950 Acct:[id number] Age/Sex: 74 / M ADM Date: 03/21/24 Loc: Room: Type: [facility] Attending Dr: Antoni Cohn DO Ordering Provider: Antoni Cohn DO Date of Service: 03/21/2412/05/736 ECH/ECH echo transthoracic: R06.09 - Other forms of [...] Signed By: Minnie Valadez MD 03/21/24 1504 GLUCOSE POCT GLUCOMETERS Collected: 12/28/2023 11:39 AM Status: F Source: [facility] TYPE CODE TESTS RESULT OUT OF RANGE REFERENCE UNITS LAB GLUPOC Glucose Poc Glucometers 201 mg/dL Result Comment: Random Gluco se Reference Range is dependent on time and content of last meal. Glucose of more than 200 mg/dL in a nonstressed, ambulatory subject supports the diagnosis of Diabetes Mellitus. PERFORMED BY: [address] [address] PATHOLOGIST HYDRO ELECTRIC STATION OPERATOR CHANCE ALMARAZ M.D. Performed By: #### GLULS ### # Point of Care testing , GLUCOSE POCT GLUCOMETERS Collected: 12/28/2023 7:40 A M Status: F Source: [facility] TYPE CODE TESTS RESULT OUT OF RANGE REFERENCE UNITS LAB GLUPOC Glucose Poc Glucometers 168 mg/dL Result Comment: Random Gluco se Reference Range is dependent on time and content of last meal. Glucose of more than 200 mg/dL in a nonstressed, ambulatory subject supports the diagnosis of Diabetes Mellitus. PERFORMED BY: [address] [address] PATHOLOGIST HYDRO ELECTRIC STATION OPERATOR CHANCE ALMARAZ M.D. Performed By: #### GLULS ### # Point of Care testing , ECG 12 LEAD ECG Observed: 12/28/2023 7:31 AM Status: COMPLETED Source: [facility] Main [address] [address] Electrocardiograph Report Signed Patient: Jesse Garrison MR#: [id number] : 1950 Acct:[id number] Age/Sex: 73 / M ADM Date: 12/26/23 Loc: Room: [address] [place] [address] Type: DIS IN Attending Dr: Olga Bailon MD Ordering Provider: Otoniel Greer DO Date of Service: 12/28/23 ECG/ECG [...] change was found Confirmed by MARCIE BLAKE [facility], SAMY ([id number]) on 12/28/2023 4:23:52 PM Referred By: Electronically Signed By: SAMY RUST MD [facility] Transcribed By: MUS Signed By Samy Rust MD, [facility] 12/28/23 1621 COMPLETE BLOOD COUNT AUTO DIFF Collected: 12/28/2023 4:38 AM Status: F Source: [facility] TYPE CODE TESTS RESULT OUT OF RANGE REFERENCE UNITS LAB WBC White Blood Count 12.8 High 4.1-10.5 10*3/uL LAB UNWBC Uncorrected WBC 12.8 High 4.1-10.5 10*3/uL LAB RBC Red Blood Count 4.95 Normal 3.90-5.60 LAB HGB Hemoglobin 15.4 Normal 13.0-17.0 g/dL LAB HCT Hematocrit 43.5 Normal 38.8-50.0 % LAB MCV Mean Corpuscular Volume 87.9 Normal 83.5-101 fL LAB MCH Mean Corpuscular Hemoglobin 31.0 Normal 27.5-35.2 pg LAB MCHC Mean Corpuscular HGB Conc 35.3 Normal 32.5-35.6 g/dL LAB RDW Red Cell Distribution Width 12.5 Normal 12.0-14.8 % LAB PLT Platelet Count 320 Normal 150-450 10*3/uL LAB MPV Mean Platelet Volume 7.8 Normal 6.6-10.1 fL LAB NE% Neutrophils % (Auto) 70.6 . % LAB LY% Lymphocytes % (Auto) 22.0 . % LAB MO% Monocytes % (Auto) 5.6 . % LAB EO% Eosinophils % (Auto) 1.5 . % LAB BA% Basophils % (Auto) 0.3 . % LAB NRBC% NRBC% 0.0 Normal 0-0.5 /100{WBC} LAB NE# Neutrophils # (Auto) 9.1 High 1.8-7.7 10*3/uL LAB LY# Lymphocytes # (Auto) 2.8 Normal 1.00-4.8 10*3/uL LAB MO# Monocytes # (Auto) 0.7 Normal 0.0-0.8 10*3/uL LAB EO# Eosinophils # (Auto) 0.2 Normal 0.0-0.45 10*3/uL LAB BA# Basophils # (Auto) 0.0 Normal 0.0-0.2 10*3/uL Result Comment: PERFORMED BY : [place] [address] PATHOLOGIST HYDRO ELECTRIC STATION OPERATOR CHANCE ALMARAZ M.D. Performed By: #### LIPID, CB C, BNP, BMP #### [place] [id number] [facility] BASIC METABOLIC PANEL Collected: 12/28/2023 4:38 AM Status: F Source: [facility] TYPE CODE TESTS RESULT OUT OF RANGE REFERENCE UNITS LAB GLU Glucose 135 High 70-100 mg/dL Result Comment: Random Gluco se Reference Range is dependent on time and content of last meal. Glucose of more than 200 mg/dL in a nonstressed, ambulatory subject supports the diagnosis of Diabetes Mellitus. ADA recommended reference range LAB BUN Blood Urea Nitrogen 11 Normal 7-25 mg/dL LAB CREATT Creatinine 0.99 Normal 0.70-1.30 mg/dL LAB GFReNR Estimated GFR > 60.0 LAB NA Sodium 137 Normal 136-145 mmol/L LAB K Potassium 4.6 Normal 3.5-5.1 mmol/L LAB CL Chloride 103 Normal 98-107 mmol/L LAB CO2 Carbon Dioxide 24.8 Normal 21.0-31.0 mmol/L LAB GAP Anion Gap 13.8 Normal 6.0-15.0 LAB CA Calcium 9.2 Normal 8.6-10.3 mg/dL LAB CRCLPHA Creatinine Clr Calc Pharmacy 75.00 Performed By: #### LIPID, CB C, BNP, BMP #### [address] LIPID PANEL Collected: 12/28/2023 4:38 AM Status: F Source: [facility] TYPE CODE TESTS RESULT OUT OF RANGE REFERENCE UNITS LAB CHOL Cholesterol 126 Low 140-200 mg/dL Result Comment: Chol less th an 200 mg/dl low risk Chol 201-239 mg/dl borderline risk Chol 240 mg/dl and greater high risk LAB HDL HDL Cholesterol 31 Normal 23-92 mg/dL Result Comment: HDL CHOL ATP -III CLASSIFICATION Cardiovascular Risk HDL > or equal to 60 mg/dL LOW HDL < 40 mg/dL HIGH LAB TRIG W REF Triglyceride w/Reflex 262 High 0-149 mg/dL Result Comment: TRIG ATP III CLASSIFICATION TRIG less than 150 mg/dL Normal TRIG 150-199 mg/dL Borderline high TRIG 200-500 mg/dL High TRIG greater than 500 mg/dL Very high Standard traceable to the Center for Disease Conrtrol and Prevention (CDC) test method. LAB LDLC LDL Cholesterol,Calc ulated 43 Normal 0-100 mg/dL Result Comment: LDL ATP III CLASSIFICATION LDL less than 100 mg/dL Optimal LDL 100-129 mg/dL Near or above optimal LDL 130-159 mg/dL Borderline high LDL 160-189 mg/dL High LDL greater than 189 mg/dL Very high LAB VLDL VLDL CHOLESTEROL 52 mg/dL LAB CHLHDL Chol/HDL Ratio 4.1 <5.0 Result Comment: PERFORMED BY : [place] [address] PATHOLOGIST HYDRO ELECTRIC STATION OPERATOR CHANCE ALMARAZ M.D. Performed By: #### LIPID, CB C, BNP, BMP #### [address] [address] [facility] B-TYPE NATRIURETIC PEPTIDE Collected: 12/28/2023 4:38 AM Status: F Source: [facility] TYPE CODE TESTS RESULT OUT OF RANGE REFERENCE UNITS LAB BNP B-Type Natriuretic Peptide 35.0 Normal 5-100 pg/mL Result Comment: PERFORMED BY : [place] [address] PATHOLOGIST HYDRO ELECTRIC STATION OPERATOR CHANCE ALMARAZ M.D. Performed By: #### LIPID, CB C, BNP, BMP #### [address] [address] [facility] TROPONIN I HIGH SENSITIVITY Collected: 12/28/2023 4:3 8 AM Status: C Source: [facility] TYPE CODE TESTS RESULT OUT OF RANGE REFERENCE UNITS LAB HS TROP Troponin I High Sensitivity 1513.9 High Off Scale 0.0-20.0 pg/mL Result Comment: Results call ed at 1410 on 12/28/23 --- 12/28/23 1410 --- Trop HS previously reported as: 1513.9 *H pg/mL PERFORMED BY: [address] [address] PATHOLOGIST HYDRO ELECTRIC STATION OPERATOR CHANCE ALMARAZ M.D. Performed By: #### HS TROP # ### [place] [id number] [place] TROPONIN I HIGH SENSITIVITY Collected: 12/28/2023 1:1 1 AM Status: F Source: [facility] Order Comment: TROP 1631 WOU LD BE CANCEL BY RN JOCELYNN TYPE CODE TESTS RESULT OUT OF RANGE REFERENCE UNITS LAB HS TROP Troponin I High Sensitivity 1776.4 High Off Scale 0.0-20.0 pg/mL Result Comment: Critical Res ult : Called to and read back by: MACKENZIE STILES at: 12/28/2023 02:01:58 by:[id number] PERFORMED BY: [place] [address] PATHOLOGIST HYDRO ELECTRIC STATION OPERATOR CHANCE ALMARAZ M.D. Performed By: #### HS TROP # ### [place] [id number] [place] TROPONIN I HIGH SENSITIVITY Collected: 12/27/2023 10: 57 PM Status: F Source: [facility] TYPE CODE TESTS RESULT OUT OF RANGE REFERENCE UNITS LAB HS TROP Troponin I High Sensitivity 2228.0 High Off Scale 0.0-20.0 pg/mL Result Comment: Critical Res ult : Called to and read back by: MACKENZIE STILES at: 12/28/2023 00:02:28 by:[id number] PERFORMED BY: [place] [address] PATHOLOGIST HYDRO ELECTRIC STATION OPERATOR CHANCE ALMARAZ M.D. Performed By: #### HS TROP # ### [place] [id number] [place] TROPONIN I HIGH SENSITIVITY Collected: 12/27/2023 9:0 9 PM Status: F Source: [facility] Order Comment: Q2H TYPE CODE TESTS RESULT OUT OF RANGE REFERENCE UNITS LAB HS TROP Troponin I High Sensitivity 2375.1 High Off Scale 0.0-20.0 pg/mL Result Comment: Critical Res ult : Called to and read back by: MACKENZIE STILES at: 12/27/2023 21:47:21 by:[id number] PERFORMED BY: [place] [id number] PATHOLOGIST HYDRO ELECTRIC STATION OPERATOR CHANCE ALMARAZ M.D. Performed By: #### HS TROP # ### [address] [address] [facility] GLUCOSE POCT GLUCOMETERS Collected: 12/27/2023 8:48 P M Status: F Source: [facility] TYPE CODE TESTS RESULT OUT OF RANGE REFERENCE UNITS LAB GLUPOC Glucose Poc Glucometers 226 mg/dL Result Comment: Random Gluco se Reference Range is dependent on time and content of last meal. Glucose of more than 200 mg/dL in a nonstressed, ambulatory subject supports the diagnosis of Diabetes Mellitus. PERFORMED BY: [place] [address] PATHOLOGIST HYDRO ELECTRIC STATION OPERATOR CHANCE ALMARAZ M.D. Performed By: #### GLULS ### # Point of Care testing , TROPONIN I HIGH SENSITIVITY Collected: 12/27/2023 7:0 8 PM Status: F Source: [facility] Order Comment: TROP 1631 WOU LD BE CANCEL BY RN JOCELYNN TYPE CODE TESTS RESULT OUT OF RANGE REFERENCE UNITS LAB HS TROP Troponin I High Sensitivity 2208.9 High Off Scale 0.0-20.0 pg/mL Result Comment: Critical Res ult : Called to and read back by: MACKENZIE STILES at: 12/27/2023 20:39:10 by:[id number] PERFORMED BY: [place] [address] PATHOLOGIST HYDRO ELECTRIC STATION OPERATOR CHANCE ALMARAZ M.D. Performed By: #### HS TROP # ### [facility] [address] [place], [place] [id number] [facility] ECG 12 LEAD ECG Observed: 12/27/2023 5:06 PM Status: COMPLETED Source: [facility] [place] [address] Electrocardiograph Report Signed Patient: Jesse Garrison MR#: [id number] : 1950 Acct:[id number] Age/Sex: 73 / M ADM Date: 12/26/23 Loc: Room: [address] [place] [address] Type: DIS IN Attending Dr: Olga Bailon MD Ordering Provider: Otoniel Greer DO Date of Service: 12/27/23 ECG/ECG 12 [...] block Abnormal ECG Confirmed by MARCIE BLAKE [facility], SAMY ([id number]) on 12/28/2023 4:23:20 PM Referred By: Electronically Signed By: SAMY RUST MD [facility] Transcribed By: MUS Signed By Samy Rust MD, [facility] 12/28/23 1623 GLUCOSE POCT GLUCOMETERS Collected: 12/27/2023 4:54 P M Status: F Source: [facility] TYPE CODE TESTS RESULT OUT OF RANGE REFERENCE UNITS LAB GLUPOC Glucose Poc Glucometers 121 mg/dL Result Comment: Random Gluco se Reference Range is dependent on time and content of last meal. Glucose of more than 200 mg/dL in a nonstressed, ambulatory subject supports the diagnosis of Diabetes Mellitus. PERFORMED BY: [address] [address] PATHOLOGIST HYDRO ELECTRIC STATION OPERATOR CHANCE ALMARAZ M.D. Performed By: #### GLULS ### # Point of Care testing , GLUCOSE POCT GLUCOMETERS Collected: 12/27/2023 11:06 AM Status: F Source: [facility] TYPE CODE TESTS RESULT OUT OF RANGE REFERENCE UNITS LAB GLUPOC Glucose Poc Glucometers 156 mg/dL Result Comment: Random Gluco se Reference Range is dependent on time and content of last meal. Glucose of more than 200 mg/dL in a nonstressed, ambulatory subject supports the diagnosis of Diabetes Mellitus. PERFORMED BY: [facility] [address] [place] [address] PATHOLOGIST HYDRO ELECTRIC STATION OPERATOR CHANCE ALMARAZ M.D. Performed By: #### GLULS ### # Point of Care testing , ANTI-XA UF HEPARIN Collected: 10:53 AM Status: F Source: [facility] TYPE CODE TESTS RESULT OUT OF RANGE REFERENCE UNITS LAB UFHEP Anti-Xa UF Heparin 0.24 Low 0.30-0.70 Result Comment: Use the aPTT protocol when triglycerides are > 800 mg/dL, total bilirubin is > 20 mg/dL and/or patient has received a DOAC, Fondaparinux or LMWH within 72 hours AND baseline anti-Xa level is > 0.7 units/mL PERFORMED BY: [place] [address] PATHOLOGIST HYDRO ELECTRIC STATION OPERATOR CHANCE ALMARAZ M.D. Performed By: #### UFHEP ### # [address] ECG 12 LEAD ECG Observed: 12/27/2023 7:57 AM Status: COMPLETED Source: [facility] [place] [address] Electrocardiograph Report Signed Patient: Jesse Garrison MR#: [id number] : 1950 Acct:[id number] Age/Sex: 73 / M ADM Date: 12/26/23 Loc: Room: [address] [place] [address] Type: DIS IN Attending Dr: Olga Bailon [...] in Lateral leads Confirmed by MARCIE BLAKE [facility], SAMY ([id number]) on 12/28/2023 4:23:04 PM Referred By: Electronically Signed By: SAMY RUST MD FACC Transcribed By: MUS Signed By Samy Rust MD, FACC 12/28/23 1623 GLUCOSE POCT GLUCOMETERS Collected: 12/27/2023 7:05 A M Status: F Source: [facility] TYPE CODE TESTS RESULT OUT OF RANGE REFERENCE UNITS LAB GLUPOC Glucose Poc Glucometers 163 mg/dL Result Comment: Random Gluco se Reference Range is dependent on time and content of last meal. Glucose of more than 200 mg/dL in a nonstressed, ambulatory subject supports the diagnosis of Diabetes Mellitus. PERFORMED BY: [place] [address] PATHOLOGIST HYDRO ELECTRIC STATION OPERATOR CHANCE ALMARAZ M.D. Performed By: #### GLULS ### # Point of Care testing , ANTI-XA UF HEPARIN Collected: 4:24 AM Status: F Source: [facility] TYPE CODE TESTS RESULT OUT OF RANGE REFERENCE UNITS LAB UFHEP Anti-Xa UF Heparin 0.20 Low 0.30-0.70 Result Comment: Use the aPTT protocol when triglycerides are > 800 mg/dL, total bilirubin is > 20 mg/dL and/or patient has received a DOAC, Fondaparinux or LMWH within 72 hours AND baseline anti-Xa level is > 0.7 units/mL PERFORMED BY: [place] [address] PATHOLOGIST HYDRO ELECTRIC STATION OPERATOR CHANCE ALMARAZ M.D. Performed By: #### UFHEP ### # [place] [id number] [facility] COMPLETE BLOOD COUNT AUTO DIFF Collected: 12/27/2023 4:24 AM Status: F Source: F [facility] TYPE CODE TESTS RESULT OUT OF RANGE REFERENCE UNITS LAB WBC White Blood Count 8.6 Normal 4.1-10.5 10*3/uL LAB UNWBC Uncorrected WBC 8.6 Normal 4.1-10.5 10*3/uL LAB RBC Red Blood Count 4.65 Normal 3.90-5.60 LAB HGB Hemoglobin 14.3 Normal 13.0-17.0 g/dL LAB HCT Hematocrit 40.7 Normal 38.8-50.0 % LAB MCV Mean Corpuscular Volume 87.6 Normal 83.5-101 fL LAB MCH Mean Corpuscular Hemoglobin 30.8 Normal 27.5-35.2 pg LAB MCHC Mean Corpuscular HGB Conc 35.2 Normal 32.5-35.6 g/dL LAB RDW Red Cell Distribution Width 12.5 Normal 12.0-14.8 % LAB PLT Platelet Count 298 Normal 150-450 10*3/uL LAB MPV Mean Platelet Volume 7.3 Normal 6.6-10.1 fL LAB NE% Neutrophils % (Auto) 58.8 . % LAB LY% Lymphocytes % (Auto) 33.4 . % LAB MO% Monocytes % (Auto) 5.3 . % LAB EO% Eosinophils % (Auto) 2.1 . % LAB BA% Basophils % (Auto) 0.4 . % LAB NRBC% NRBC% 0.0 Normal 0-0.5 /100{WBC} LAB NE# Neutrophils # (Auto) 5.1 Normal 1.8-7.7 10*3/uL LAB LY# Lymphocytes # (Auto) 2.9 Normal 1.00-4.8 10*3/uL LAB MO# Monocytes # (Auto) 0.5 Normal 0.0-0.8 10*3/uL LAB EO# Eosinophils # (Auto) 0.2 Normal 0.0-0.45 10*3/uL LAB BA# Basophils # (Auto) 0.0 Normal 0.0-0.2 10*3/uL Result Comment: PERFORMED BY : [place] [address] PATHOLOGIST HYDRO ELECTRIC STATION OPERATOR CHANCE ALMARAZ M.D. Performed By: #### LIPID, MG , CK, BNP, CBC, BMP, CKMB, HS TROP #### [facility] [address] [place] [address] BASIC METABOLIC PANEL Collected: 12/27/2023 4:24 AM Status: F Source: [facility] Order Comment: FASTING Y TYPE CODE TESTS RESULT OUT OF RANGE REFERENCE UNITS LAB GLU Glucose 156 High 70-100 mg/dL Result Comment: Random Gluco se Reference Range is dependent on time and content of last meal. Glucose of more than 200 mg/dL in a nonstressed, ambulatory subject supports the diagnosis of Diabetes Mellitus. ADA recommended reference range LAB BUN Blood Urea Nitrogen 11 Normal 7-25 mg/dL LAB CREATT Creatinine 0.95 Normal 0.70-1.30 mg/dL LAB GFReNR Estimated GFR > 60.0 LAB NA Sodium 138 Normal 136-145 mmol/L LAB K Potassium 4.1 Normal 3.5-5.1 mmol/L LAB CL Chloride 103 Normal 98-107 mmol/L LAB CO2 Carbon Dioxide 29.7 Normal 21.0-31.0 mmol/L LAB GAP Anion Gap 9.4 Normal 6.0-15.0 LAB CA Calcium 9.2 Normal 8.6-10.3 mg/dL LAB CRCLPHA Creatinine Clr Calc Pharmacy 78.32 Performed By: #### LIPID, MG , CK, BNP, CBC, BMP, CKMB, HS TROP #### [facility] [phone] [facility] MAGNESIUM Collected: 4:24 AM Status: F Source: [facility] Order Comment: FASTING Y TYPE CODE TESTS RESULT OUT OF RANGE REFERENCE UNITS LAB MG Magnesium 2.1 Normal 1.9-2.7 mg/dL Performed By: #### LIPID, MG , CK, BNP, CBC, BMP, CKMB, HS TROP #### [facility] [address] [place] [id number] [facility] LIPID PANEL Collected: 12/27/2023 4:24 AM Status: F Source: [facility] Order Comment: FASTING Y TYPE CODE TESTS RESULT OUT OF RANGE REFERENCE UNITS LAB CHOL Cholesterol 126 Low 140-200 mg/dL Result Comment: Chol less th an 200 mg/dl low risk Chol 201-239 mg/dl borderline risk Chol 240 mg/dl and greater high risk LAB HDL HDL Cholesterol 29 Normal 23-92 mg/dL Result Comment: HDL CHOL ATP -III CLASSIFICATION Cardiovascular Risk HDL > or equal to 60 mg/dL LOW HDL < 40 mg/dL HIGH LAB TRIG W REF Triglyceride w/Reflex 301 High 0-149 mg/dL Result Comment: TRIG ATP III CLASSIFICATION TRIG less than 150 mg/dL Normal TRIG 150-199 mg/dL Borderline high TRIG 200-500 mg/dL High TRIG greater than 500 mg/dL Very high Standard traceable to the Center for Disease Conrtrol and Prevention (CDC) test method. LAB LDLC LDL Cholesterol,Calc ulated 37 Normal 0-100 mg/dL Result Comment: LDL ATP III CLASSIFICATION LDL less than 100 mg/dL Optimal LDL 100-129 mg/dL Near or above optimal LDL 130-159 mg/dL Borderline high LDL 160-189 mg/dL High LDL greater than 189 mg/dL Very high LAB VLDL VLDL CHOLESTEROL 60 mg/dL LAB CHLHDL Chol/HDL Ratio 4.3 <5.0 Result Comment: PERFORMED BY : [place] [address] PATHOLOGIST HYDRO ELECTRIC STATION OPERATOR CHANCE ALMARAZ M.D. Performed By: #### LIPID, MG , CK, BNP, CBC, BMP, CKMB, HS TROP #### [place] [id number] [facility] B-TYPE NATRIURETIC PEPTIDE Collected: 12/27/2023 4:24 AM Status: F Source: [facility] TYPE CODE TESTS RESULT OUT OF RANGE REFERENCE UNITS LAB BNP B-Type Natriuretic Peptide 60.0 Normal 5-100 pg/mL Result Comment: PERFORMED BY : [place] [address] PATHOLOGIST HYDRO ELECTRIC STATION OPERATOR CHANCE ALMARAZ M.D. Performed By: #### LIPID, MG , CK, BNP, CBC, BMP, CKMB, HS TROP #### [place] [id number] [place] CREATINE KINASE Collected: 12/27/2023 4:24 AM Status : F Source: [facility] TYPE CODE TESTS RESULT OUT OF RANGE REFERENCE UNITS LAB CK Creatine Kinase 66 Normal 30-223 U/L Performed By: #### LIPID, MG , CK, BNP, CBC, BMP, CKMB, HS TROP #### [place] [id number] [facility] CREATININE KINASE MB Collected: 4:24 AM Status: F Source: [facility] TYPE CODE TESTS RESULT OUT OF RANGE REFERENCE UNITS LAB CKMBT Creatine Kinase MB 3.9 Normal 0.6-6.3 ng/mL LAB MBI CKMB Relative Index 5.9 High 0.00-2.50 % Performed By: #### LIPID, MG , CK, BNP, CBC, BMP, CKMB, HS TROP #### [place] [id number] [facility] TROPONIN I HIGH SENSITIVITY Collected: 12/27/2023 4:2 4 AM Status: F Source: [facility] TYPE CODE TESTS RESULT OUT OF RANGE REFERENCE UNITS LAB HS TROP Troponin I High Sensitivity 1150.4 High Off Scale 0.0-20.0 pg/mL Result Comment: Critical Res ult : Called to and read back by: EMMIE GREEN at: 12/27/2023 07:00:34 by:DICK PERFORMED BY: [place] [id number] PATHOLOGIST HYDRO ELECTRIC STATION OPERATOR CHANCE ALMARAZ M.D. Performed By: #### LIPID, MG , CK, BNP, CBC, BMP, CKMB, HS TROP #### [place] [id number] [facility] TROPONIN I HIGH SENSITIVITY Collected: 12/26/2023 11: 12 PM Status: F Source: [facility] TYPE CODE TESTS RESULT OUT OF RANGE REFERENCE UNITS LAB HS TROP Troponin I High Sensitivity 980.7 High Off Scale 0.0-20.0 pg/mL Result Comment: Critical Res ult : Called to and read back by: EMMIE RGEEN at: 12/27/2023 00:08:37 by:DICK PERFORMED BY: [place] [address] PATHOLOGIST HYDRO ELECTRIC STATION OPERATOR CHANCE ALMARAZ M.D. Performed By: #### HS TROP # ### [place] [phone] [place] CREATINE KINASE Collected: 12/26/2023 9:20 PM Status : F Source: [facility] TYPE CODE TESTS RESULT OUT OF RANGE REFERENCE UNITS LAB CK Creatine Kinase 83 Normal 30-223 U/L Performed By: #### CK, CKMB #### [facility] [address] [place], [place] [id number] [place] CREATININE KINASE MB Collected: 9:20 PM Status: F Source: [facility] TYPE CODE TESTS RESULT OUT OF RANGE REFERENCE UNITS LAB CKMBT Creatine Kinase MB 5.2 Normal 0.6-6.3 ng/mL LAB MBI CKMB Relative Index 6.2 High 0.00-2.50 % Result Comment: PERFORMED BY : [place] [id number] PATHOLOGIST HYDRO ELECTRIC STATION OPERATOR CHANCE ALMARAZ M.D. Performed By: #### CK, CKMB #### [facility] [address] [place] [id number] [facility] HEPATIC PANEL Collected: 12/26/2023 9:20 PM Status: F Source: [facility] TYPE CODE TESTS RESULT OUT OF RANGE REFERENCE UNITS LAB TP Total Protein 6.8 Normal 6.4-8.9 g/dL LAB ALB Albumin Level 4.3 Normal 3.5-5.7 g/dL LAB GLOB Globulin 2.5 g/dL LAB AGRATIO Albumin/Globulin Ratio 1.7 LAB BILIT Bilirubin,Total 0.4 Normal 0.3-1.0 mg/dL LAB BILID Bilirubin,Direct 0.10 Normal 0.03-0.18 mg/dL LAB BILII Bilirubin,Indirect 0.3 mg/dL LAB AST Aspartate Amino Transferase 22 Normal 13-39 U/L LAB ALT Alanine Aminotransferase 16 Normal 7-52 U/L LAB ALP Alkaline Phosphatase 80 Normal 34-104 U/L Performed By: #### HEPATIC, PHOS, BMP, A1C WTH eA #### [facility] [address] [place] [id number] [facility] BASIC METABOLIC PANEL Collected: 12/26/2023 9:20 PM Status: F Source: [facility] TYPE CODE TESTS RESULT OUT OF RANGE REFERENCE UNITS LAB GLU Glucose 130 High 70-100 mg/dL Result Comment: Random Gluco se Reference Range is dependent on time and content of last meal. Glucose of more than 200 mg/dL in a nonstressed, ambulatory subject supports the diagnosis of Diabetes Mellitus. ADA recommended reference range LAB BUN Blood Urea Nitrogen 10 Normal 7-25 mg/dL LAB CREATT Creatinine 0.92 Normal 0.70-1.30 mg/dL LAB GFReNR Estimated GFR > 60.0 LAB NA Sodium 140 Normal 136-145 mmol/L LAB K Potassium 4.7 Normal 3.5-5.1 mmol/L LAB CL Chloride 103 Normal 98-107 mmol/L LAB CO2 Carbon Dioxide 30.3 Normal 21.0-31.0 mmol/L LAB GAP Anion Gap 11.4 Normal 6.0-15.0 LAB CA Calcium 9.3 Normal 8.6-10.3 mg/dL LAB CRCLPHA Creatinine Clr Calc Pharmacy 80.87 Performed By: #### HEPATIC, PHOS, BMP, A1C WTH eA #### [facility] [address] [place] [id number] [facility] PHOSPHORUS Collected: 9:20 PM Status: F Source: [facility] TYPE CODE TESTS RESULT OUT OF RANGE REFERENCE UNITS LAB PHOS Phosphorus 3.5 Normal 2.5-4.5 mg/dL Result Comment: PERFORMED BY : [place] [address] PATHOLOGIST HYDRO ELECTRIC STATION OPERATOR CHANCE ALMARAZ M.D. Performed By: #### HEPATIC, PHOS, BMP, A1C WTH eA #### [facility] [address] [place], [place] [id number] [facility] A1C WITH ESTIMATED AVERAGE GLU Collected: 12/26/2023 9:20 PM Status: F Source: [facility] TYPE CODE TESTS RESULT OUT OF RANGE REFERENCE UNITS LAB .A1C Hemoglobin A1C 8.3 High 4.3-5.6 % Result Comment: Increased ri sk for diabetes: 5.7 - 6.4 diabetes: >6.4 glycemic control for adults with diabetes: <7.0 LAB eAG Estimated Average Glucose 192 mg/dL Result Comment: PERFORMED BY : [place] [address] PATHOLOGIST HYDRO ELECTRIC STATION OPERATOR CHANCE ALMARAZ M.D. Performed By: #### HEPATIC, PHOS, BMP, A1C WTH eA #### [place] [id number] [facility] ANTI-XA UF HEPARIN Collected: 9:20 PM Status: F Source: [facility] TYPE CODE TESTS RESULT OUT OF RANGE REFERENCE UNITS LAB UFHEP Anti-Xa UF Heparin 0.05 Low 0.30-0.70 Result Comment: Use the aPTT protocol when triglycerides are > 800 mg/dL, total bilirubin is > 20 mg/dL and/or patient has received a DOAC, Fondaparinux or LMWH within 72 hours AND baseline anti-Xa level is > 0.7 units/mL PERFORMED BY: [address] [address] PATHOLOGIST HYDRO ELECTRIC STATION OPERATOR CHANCE ALMARAZ M.D. Performed By: #### UFHEP ### # [facility] [address] COMPLETE BLOOD COUNT AUTO DIFF Collected: 12/26/2023 9:20 PM Status: F Source: [facility] TYPE CODE TESTS RESULT OUT OF RANGE REFERENCE UNITS LAB WBC White Blood Count 10.1 Normal 4.1-10.5 10*3/uL LAB UNWBC Uncorrected WBC 10.1 Normal 4.1-10.5 10*3/uL LAB RBC Red Blood Count 4.96 Normal 3.90-5.60 LAB HGB Hemoglobin 15.3 Normal 13.0-17.0 g/dL LAB HCT Hematocrit 43.8 Normal 38.8-50.0 % LAB MCV Mean Corpuscular Volume 88.3 Normal 83.5-101 fL LAB MCH Mean Corpuscular Hemoglobin 30.8 Normal 27.5-35.2 pg LAB MCHC Mean Corpuscular HGB Conc 34.9 Normal 32.5-35.6 g/dL LAB RDW Red Cell Distribution Width 12.6 Normal 12.0-14.8 % LAB PLT Platelet Count 304 Normal 150-450 10*3/uL LAB MPV Mean Platelet Volume 7.5 Normal 6.6-10.1 fL LAB NE% Neutrophils % (Auto) 65.4 . % LAB LY% Lymphocytes % (Auto) 27.5 . % LAB MO% Monocytes % (Auto) 4.6 . % LAB EO% Eosinophils % (Auto) 2.0 . % LAB BA% Basophils % (Auto) 0.5 . % LAB NRBC% NRBC% 0.1 Normal 0-0.5 /100{WBC} LAB NE# Neutrophils # (Auto) 6.6 Normal 1.8-7.7 10*3/uL LAB LY# Lymphocytes # (Auto) 2.8 Normal 1.00-4.8 10*3/uL LAB MO# Monocytes # (Auto) 0.5 Normal 0.0-0.8 10*3/uL LAB EO# Eosinophils # (Auto) 0.2 Normal 0.0-0.45 10*3/uL LAB BA# Basophils # (Auto) 0.0 Normal 0.0-0.2 10*3/uL Result Comment: PERFORMED BY : [facility] [address] [place] [phone] PATHOLOGIST HYDRO ELECTRIC STATION OPERATOR CHANCE ALMARAZ M.D. Performed By: #### CBC, BNP, PT, PTT, HS TROP #### [place] [id number] [facility] PROTHROMBIN TIME INR Collected: 12/26/2023 9:20 PM S tatus: F Source: [facility] TYPE CODE TESTS RESULT OUT OF RANGE REFERENCE UNITS LAB R PT Prothrombin Time 11.1 Normal 9.0-12.9 s Result Comment: A hematocrit value greater than 55% may lead to inaccurate results in coagulation testing. Patients having hematocrit values >55% require a special collection tube for coagulation studies. Please contact the laboratory at [phone] for redraw instructions. LAB INR INR 1.0 Result Comment: INR Therapeu tic Range A) Pre- and Peroperative OAT started [...] valves: 3 - 4.5 Performed By: #### CBC, BNP, PT, PTT, HS TROP #### [place] [id number] [facility] PARTIAL THROMBOPLASTIN TIME Collected: 12/26/2023 9:2 0 PM Status: F Source: [facility] TYPE CODE TESTS RESULT OUT OF RANGE REFERENCE UNITS LAB PTT Partial Thromboplastin Time 32.0 Normal 25.1-36.5 s Result Comment: A hematocri t value greater than 55% may lead to inaccurate results in coagulation testing. Patients having hematocrit values >55% require a special collection tube for coagulation studies. Please contact the laboratory at [phone] for redraw instructions. PERFORMED BY: [address] [place] [address] PATHOLOGIST HYDRO ELECTRIC STATION OPERATOR CHANCE ALMARAZ M.D. Performed By: #### CBC, BNP, PT, PTT, HS TROP #### [place] [phone] [facility] B-TYPE NATRIURETIC PEPTIDE Collected: 12/26/2023 9:20 PM Status: F Source: [facility] TYPE CODE TESTS RESULT OUT OF RANGE REFERENCE UNITS LAB BNP B-Type Natriuretic Peptide 84.0 Normal 5-100 pg/mL Result Comment: PERFORMED BY : [place] [address] PATHOLOGIST HYDRO ELECTRIC STATION OPERATOR CHANCE ALMARAZ M.D. Performed By: #### CBC, BNP, PT, PTT, HS TROP #### [address] TROPONIN I HIGH SENSITIVITY Collected: 12/26/2023 9:2 0 PM Status: F Source: [facility] TYPE CODE TESTS RESULT OUT OF RANGE REFERENCE UNITS LAB HS TROP Troponin I High Sensitivity 1138.6 High Off Scale 0.0-20.0 pg/mL Result Comment: Critical Res ult : Called to and read back by: EMMIE GREEN at: 12/26/2023 22:41:33 by:DICK PERFORMED BY: [place] [address] PATHOLOGIST HYDRO ELECTRIC STATION OPERATOR CHANCE ALMARAZ M.D. Performed By: #### CBC, BNP, PT, PTT, HS TROP #### [address] GLUCOSE POCT GLUCOMETERS Collected: 12/26/2023 9:03 P M Status: F Source: [facility] TYPE CODE TESTS RESULT OUT OF RANGE REFERENCE UNITS LAB GLUPOC Glucose Poc Glucometers 133 mg/dL Result Comment: Random Gluco se Reference Range is dependent on time and content of last meal. Glucose of more than 200 mg/dL in a nonstressed, ambulatory subject supports the diagnosis of Diabetes Mellitus. PERFORMED BY: [place] [address] PATHOLOGIST HYDRO ELECTRIC STATION OPERATOR CHANCE ALMARAZ M.D. Performed By: #### GLULS ### # Point of Care testing , ECG 12 LEAD ECG Observed: 12/26/2023 8:41 PM Status: COMPLETED Source: [facility] Main [place] [address] [place], [place] [address] Electrocardiograph Report Signed Patient: Jesse Garrison MR#: [id number] : 1950 Acct:[id number] Age/Sex: 73 / M ADM Date: 12/26/23 Loc: Room: [address] [place] [address] Type: DIS IN Attending Dr: Olga Bailon [...] block is new Confirmed by MARCIE BLAKE [facility], SAMY ([id number]) on 12/28/2023 4:22:19 PM Referred By: Electronically Signed By: SAMY RUST MD [facility] Transcribed By: MUS Signed By Samy Rust MD, [facility] 12/28/23 1622 CONSENT FOR PROCEDURE/SURGERY Observed: 05/31/2023 1:02 PM Status: F Source: [facility] [id number]#1.00TIFF LAB REPORTS Observed: 02/20/2023 1:02 PM Status: F Source: [facility] [id number]#1.00TIFF ALLERGIES DATE TYPE / CODE NAME / CODE REACTION SEVERITY SOURCE 11/29/2024 Drug Allergy/1193551 02(SNOMED CT) No Known Allergies/[id number]( RXNORM) Unknown [facility] SYSTEMIC/170089 006(SNOMED CT) NO KNOWN ALLERGIES [facility] Ambulatory DR/[id number](SN OMED CT) No Known Medication Allergies [facility] ENCOUNTERS ADMIT/DISCHARGE ACCOUNT NUMBER ADMITTING ENCOUNTER CLASS LOCATION SOURCE 12/05/2024/12/08/19 25 [id number] Elvis [facility] nTRoom: [id number]: 1 [facility] 11/29/2024/12/04/19 25 [id number] Robert Petit Inpatient Encounter [facility] nPRoom: [id number]: 1 [facility] 11/13/2024/11/14/19 [id number] Randall MOLINA Ambulatory [facility] :FT LAB [facility] 11/13/2024/11/14/19 25 [id number] Ambulatory [place] : Exam 2 [facility] 10/14/2024/10/15/19 [id number] [facility] 07/10/2024/07/11/19 [id number] Ambulatory Building:DOT [id number] Ambulatory 03/21/2024/03/21/19 25 [id number] [address] C[address] Amb[address] [facility] ng:[facility] 01/10/2024/01/10/20 24 [id number] Ambulatory Building:DOT [id number] [place] [address] 12/26/2023/12/28/19 24 [id number] Tr Garcia Inpatient Encounter [facility] nPRoom: [id number]: 1 [facility] 11/01/2018 [id number] Ambulatory [place] [facility] PAYERS ENCOUNTER GUARANTOR PAYER SUBSCRIBER SOURCE 12/05/2024 Jesse Garrison[address] [place] [address]Ist: () Primary Insurance:MedicarePolic y Number: [id number] Date:2024-12-05 Jesse HuddlestonB: [id number] [address] [place] [address]Xdz: (HP) [facility] 12/05/2024 Secondary Insurance[facility] Number: [id number] Date:2024-12-05 Jesse HuddlestonB: [id number] 3 [facility] [place] [address]Bea: () [facility] 12/05/2024 Tertiary Insuran ce:Self PayPolicy Number: Effective Date:2024-12-05 NOT GIVENUNK [facility] 11/29/2024 Jesse Garrison[address] [place] [address]Imr: () Primary Insurance:MedicarePolic y Number: [id number] Date:2024-11-29 Jesse Comer: [id number] 3 [facility] [place] [address]Bef: () [facility] 11/29/2024 Secondary Insurance:[facility]Policy Number: [id number] Date:2024-11-29 Jesse Comer: [id number] 3 [facility] [place] [address]Pxr: () [facility] 11/29/2024 Tertiary Insuran ce:Self PayPolicy Number: Effective Date:2024-11-29 NOT GIVENUNK [facility] 11/13/2024 JESSE COMER: [place] RDTel: ~~(4 1 () Primary Insurance:MEDICAREPolic y Number: [id number] Date:6024-39-74[address] [address], [place] [address]HL: [facility] 11/13/2024 Secondary Insurance:[facility] C[facility]Policy Number: [id number] Date:2637-06-77AW [address] [address]JT: [facility] 11/13/2024 JESSE COMER: [id number] [place] RDTel: ~~(4 1 (HP) Primary Insurance:MEDICAREPolic y Number: [id number] Date:5211-64-19OQ [address] [address], [place] [address]MY: [facility] 11/13/2024 Secondary Insurance:[facility] C[facility]Policy Number: [id number] Date:7560-42-89KJ [address] [place] [address]WF: [facility] 07/10/2024 JESSE GARRISONB: [id number] [place], [place] [address]Xzh: (HP) Primary Insurance:MEDICAREPolic y Number: [id number] Date:2011-12-12 JESSE HUDDLESTONB: [id number] [address] [place], [place] [address]Wbv: () [facility] 07/10/2024 Secondary [facility] Number: [id number] Date:2023-03-13 JESSE HUDDLESTONB: [id number] 3 [place], [place] [address]Jvd: () [facility] 03/21/2024 Jesse Garrison[address] [place] [address]Zdq: (HP) Primary Insurance:MedicarePolic y Number: [id number] Date:2024-02-22 Jesse HuddlestonB: [id number] 3 [facility] [place] [address]Jbr: (HP) [facility] 03/21/2024 Secondary Insurance:[facility]Policy Number: [id number] Date:2024-02-22 Jesse GarrisonDEMETRIUS: [id number] [address] [place] [address]Jte: () [facility] 03/21/2024 Tertiary Insuran ce:Self PayPolicy Number: Effective Date:2024-03-11 NOT GIVENUNK [facility] 01/10/2024 JESSE GARRISONB: [id number] [facility] [place] [address]Mvc: () Primary Insurance:MEDICAREPolic y Number: [id number] Date:2011-12-12 JESSE GARRISONDEMETRIUS: [id number] [address] [place] [address]Lyn: () [facility] 01/10/2024 Secondary Insurance:[facility]Policy Number: [id number] Date:2023-03-13 JESSE GARRISONDEMETRIUS: [id number] [address] [place] [place], [place] [address]Rvs: () [facility] 12/26/2023 Jesse Garrison[address] [place] [address]Gmz: () Primary Insurance:MedicarePolic y Number: [id number] Date:2023-12-26 Jesse GarrisonDEMETRIUS: [id number] [address] [place] [address]Nth: () [facility] 12/26/2023 Secondary Insurance:[facility]Policy Number: [id number] Date:2023-12-26 Jesse GarrisonDEMERTIUS: [id number] [address] [place] [address]Wpm: () [facility] 12/26/2023 Tertiary Insuran ce:Self PayPolicy Number: Effective Date:2023-12-26 NOT GIVENUNK [facility] 11/01/2018 JESSE GARRISONDEMETRIUS: [id number] [place] RDTel: ~(41 9 (HP) Primary Insurance:MEDICAREPolic y Number: [id number] Date:6821-41-65LQ [id number] [address]ZD: [facility] 11/01/2018 Secondary [facility]Policy [facility]: [id number] Date:[id number] [address] [address], [place] [address]ET: [facility]
[2024-12-09 10:14] LABS: Hematocrit 28.0 % (42.0-54.0); Hemoglobin 9.2 g/dL (14.0-18.0); Immature Granulocytes Abs Auto 0.01 10^3/uL (0.00-0.03); Immature Granulocytes Pct Auto 0.2 % (0.0-0.5); Lymphocytes Absolute Auto 1.5 10^3/uL (1.2-3.8); Mean Corpuscular HGB Conc 32.9 g/dL (29.9-35.2); Mean Corpuscular Hemoglobin 29.4 pg (25.9-34.0); Mean Corpuscular Volume 89.5 fL (80.0-94.0); Platelet Count 442 10^3/uL (150-450); Red Blood Count 3.13 10^6/uL (4.70-6.10); White Blood Count 6.5 10^3/uL (4.0-11.0)
[2024-12-09 11:29] LABS: Ferritin 10.0 ng/mL (26.0-388.0)
== END 2024-12-09 09:50 | disposition home or self-care (01) ==
LOC: LAB 09:56
PROVIDERS: PCP Internal Medicine; Visit Provider Internal Medicine
DX: D62 Acute posthemorrhagic anemia (principal)
CPT/HCPCS: 36415; 82728; 85025

== ENCOUNTER 2024-12-23 08:43 | Outpatient (RCR) | payer MEDICARE, OTHER, SELFPAY ==
[2024-12-16 11:48] VITALS: BP 151/66; PULSE 90; TEMP 36.6; O2SAT 98
[2024-12-16] MEDS: FERRIC CARBOXYMALTOSE 750 MG in 0.9 % SODIUM CHLORIDE 250 ML 795 MG IV (12:02)
[2024-12-23 08:54] VITALS: BP 131/71; PULSE 68; TEMP 36.2; O2SAT 93
[2024-12-23] MEDS: FERRIC CARBOXYMALTOSE 750 MG in 0.9 % SODIUM CHLORIDE 250 ML 795 MG IV (09:01)
--- NOTE | 2024-12-23 09:03 | PC.NURSE ---
Pt. relays feeling dizzy at times with position changes. Orthostatic BP's obtained. Lyin/68, sittin/63 and standin/60. Readings wrote down and suggested to let PCP know at next office visit. Pt. relays understanding.
== END 2025-01-10 23:59 | disposition home or self-care (01) ==
LOC: INF 08:43
PROVIDERS: PCP Internal Medicine; Visit Provider Internal Medicine
DX: D62 Acute posthemorrhagic anemia (principal)
CPT/HCPCS: 96365; J1439

== ENCOUNTER 2025-01-07 07:10 | Outpatient (OUT) | payer MEDICARE, OTHER, SELFPAY ==
--- OUTSIDE RECORDS SUMMARY | 2024-12-24 05:12 | XMS_ITS | Continuity of Care Document ---
Author Organization [facility] Address [address] [place] [address] Phone Care Team Providers Care Instructor Pilot Name Role Phone Antoni Cohn Primary Care Provider Carri Shoemaker MD Emergency Provider [phone] Robert Petit MD Admit Provider Robert Petit MD Other Provider Mane Sommer MD Attending Provider Mane Sommer MD Other Provider Adelso Brito CORPORATE CONCIERGE Other Provider Sol Suarez MD Other Provider Christen Dumont DO Other Provider Moncho Stein CORPORATE CONCIERGE Other Provider Jagruti Oro RN Other Provider Unavailable Otoniel Singleton DO Other Provider Samy Rust MD Other Provider Minnie Valadez MD Other Provider Yissel Verma APRN Other Provider Janneth Gordon MD Other Provider Brittney Murray SAXOPHONE TEACHER-BC Other Provider Christen Dunbar CMA Attending Provider Mavis Anguiano APRN Emergency Provider Elvis Wilkinson DO Admit Provider [phone] Michelle Aguayo MD Attending Provider Antoni Cohn DO Attending Provider [phone] Care Teams Patient Care Team Team Status: Active Member Role Status Dates Antoni Cohn DO Primary Care Provider Active Visit Care Team Team Status: Active Member Role Status Dates Antoni Cohn DO Primary Care Provider Active Start: November 29, 2024 Carri Shoemaker MDEmergency ProviderActiveStart: November 29, 2024 Robert Petit MDAdmit ProviderActiveStart: November 29, 2024 Robert Petit MDOther ProviderActiveStart: November 29, 2024 Mane Sommer MDAttending ProviderActiveStart: November 29, 2024 Mane Sommer MDOther ProviderActiveStart: November 29, 2024 Adelso Brito , APRNOther ProviderActiveStart: November 29, 2024 Sol Suarez MDOther ProviderActiveStart: November 29, 2024 Christen Dumont , DOOther ProviderActiveStart: November 29, 2024 Moncho Stein APRNOther ProviderActiveStart: November 29, 2024 Jagruti Oro RNOther ProviderActiveStart: November 29, 2024 Jagruti Oro RNOther ProviderActiveStart: November 29, 2024 Otoniel Singleton DOOther ProviderActiveStart: November 29, 2024 Samy Rust MDOther ProviderActiveStart: November 29, 2024 Minnie Valadez MDOther ProviderActiveStart: November 29, 2024 Yissel Verma , APRNOther ProviderActiveStart: November 29, 2024 Janneth Gordon MDOther ProviderActiveStart: November 29, 2024 Brittney Murray , SAXOPHONE TEACHER-BCOther ProviderActiveStart: November 29, 2024 Visit Care Team Team Status: Active Member Role Status Dates Antoni Cohn DO Primary Care Provider Active Start: December 04, 2024 Christen Dunbar CMAAttending ProviderActiveStart: December 04, 2024 Visit Care Team Team Status: Inactive Member Role Status Dates Antoni Cohn DO Primary Care Provider Active Start: December 05, 2024 End: December 07jaxson Gonzalez APRNEmergencjune ProviderActiveStart: December 05, 2024 End: December 07, 2024Elvis Wilkinson DOAdmit ProviderActiveStart: December 05, 2024 End: December 07, 2024Michelle Aguayo MDAttending ProviderActiveStart: December 05, 2024 End: December 07, 2024 Visit Care Team Team Status: Active Member Role Status Dates Antoni Cohn DO Primary Care Provider Active Start: December 09, 2024 Antoni Cohn DOAttending ProviderActiveStart: December 09, 2024 Visit Care Team Team Status: Inactive Member Role Status Dates Antoni Cohn DO Primary Care Provider Active Start: December 10, 2024 End: December 10enclemente Cohn DOAttending ProviderActiveStart: December 10, 2024 End: December 10, 2024 Patient Care Team Team Status: Inactive Member Role Status Dates Antoni Cohn DO Primary Care Provider Active Start: December 24, 2024 End: December 24luz Cohn DOAttending ProviderActiveStart: December 24, 2024 End: December 24, 2024 Chief Complaint and Reason for Visit Chief Complaint Admit Date Sob/dizzy November 29, 2024 8:13am Amb Documentation December 04, 2024 9:06am chest pressure, sob, black stools Septem 2024 8:28pm 3 month-HIGH RISK December 24, 2024 8 :19am Reason for Visit Admit Date [facility] residential (current) use of antithromboti cs/antiplatelets November 29, 2024 8:13am Melena November 29, 2024 8:13am Type 2 diabetes mellitus with diabetic p olyneuropathy November 29, 2024 8:13am [facility] 20[facility] 8:13am Anemia November 29, 2024 8:13am Dyslipidemia November 29, 2024 8:13am GI bleed November 29, 2024 8:13am Stented coronary artery November 29, 2024 8:13am Acute blood loss anemia December 05, 2024 8:28pm ASHD (arteriosclerotic heart disease) Se ptember 2024 8:28pm Gastroduodenitis with hemorrhage Septemb er 2024 8:28pm Chest pressure December 05, 2024 8:28pm Dyspnea December 05, 2024 8:28pm Type 2 diabetes mellitus with diabetic p olyneuropathy December 05, 2024 8:28pm Anemia December 05, 2024 8:28pm GI (gastrointestinal bleed) December 052024 8:28pm T2DM (type 2 diabetes mellitus) Septembe r 2024 8:28pm Acute blood loss anemia December 10, 2024 1:55pm Adverse reaction to antiplatelet agent S eptember 2024 1:55pm ASHD (arteriosclerotic heart disease) Se ptember 2024 1:55pm Gastroduodenitis with hemorrhage Septemb er 2024 1:55pm Mucopurulent chronic bronchitis Septembe r 2024 1:55pm Nicotine addiction December 10, 2024 1:55pm Obesity December 10, 2024 1:55pm Type 2 diabetes mellitus with hyperglyce carmelina December 10, 2024 1:55pm Essential (primary) hypertension Septemb er 2024 1:55pm Type 2 diabetes mellitus with diabetic p olyneuropathy December 10, 2024 1:55pm Acute blood loss anemia December 24 8:19am Adverse reaction to antiplatelet agent O ctober 2024 8:19am ASHD (arteriosclerotic heart disease) Oc tober 2024 8:19am Gastroduodenitis with hemorrhage December 24, 2024 8:19am Mucopurulent chronic bronchitis December 24, 2024 8:19am Nicotine addiction December 24, 2024 8 :19am Obesity December 24, 2024 8 :19am Type 2 diabetes mellitus with hyperglyce carmelina December 24, 2024 8:19am Essential (primary) hypertension December 24, 2024 8:19am Type 2 diabetes mellitus with diabetic p olyneuropathy December 24, 2024 8:19am Reason for Referral Referring Provider Name Referring Provider Address Referring Provider Phone Referral Date Requested Appointment Date Referral Reason Elvis Rodriguez [facility] [id number] Phone: Rahul [id number] [facility] [address]Ztwn Phone: rahul [id number] [facility] [address]Rvcc Phone: [phone] with your Primary Care Provider, call office to reschedule if needed.You have been scheduled for a follow up appointment for the following date and time, please call to reschedule if needed.The office will contact you with pathology results from your EGD. If you have any questions, please call the office. Health Concerns Concerns A [facility] screening has identified you as FRAIL or AT RISK FOR FRAILTY. This puts you at a higher risk for infection, illness, falls, and other injuries. Here are four ways to help you reduce your risk of frailty: 1. IDENTIFY EARLY SIGNS OF FRAILTY ??? Discuss contributing factors and concerns with your doctor 2. BE ACTIVE ??? Walking and light strengthening exercises will help reduce weakness 3. EAT WELL ??? Aim for three healthy meals a day that are high in protein 4. THINK POSITIVE ??? Keep your mind active by being sociable and continuing to learn References: Stay Strong: Four Ways to Beat the Frailty Risk [email or web address]://[email or web address].org/health/kqoiebfj-wiz-gokrisgpjt/cxnt-rwtumz-kicw- nhlh-gt-kgdz-the-fra ilty-risk Allergies, Adverse Reactions, Alerts Allergen Type Severity Reaction Last Updated Verified Status No Known Allergies Allergy Unknown December 24, 2024 8:37amYesActive Social History Smoking Status Status Start Date End Date Date of Observa tion Never smoked tobacco (finding) December 05, 2024 11:23pm Observation Status Observation Response Date of Response Legal Sex Male (finding) Sex Assigned At BirthMaleDecember 1949 Social History Assessments Assessment Value Date Recorded SDOH Follow up December 06, 2024 5:01pmQuestionAnswerDate RecordedHas the SDOH screening changed since admission?NSeptember 2024 5:01pm Assessment Value Date Recorded SDOH Follow up December 03, 2024 3:20pmQuestionAnswerDate RecordedHas the SDOH screening changed since admission?NSept2024 3:20pm Assessment Value Date Recorded SDOH Follow up December 02, 2024 10:04amQuestionAnswerDate RecordedHas the SDOH screening changed since admission?NSept2024 10:04am Family History Relationship Condition Age at Onset Recorded Date/T gee father [employer] workers' pneumoconiosis Unknown DeceasedUnknownMalignant neoplasmUnknownmotherDiabetes mellitusUnknownDeceased UnknownMalignant neoplasmUnknownsisterDeceasedUnknownMalignant neoplasmUnknown Problems Active Problems Medical Problem Onset Date Status Comments Medicare annual wellness visit, subsequent Unknown Active Nicotine addictionUnknownActiveScreening PSA (prostate specific antigen)Unknown ActiveType 2 diabetes mellitus with hyperglycemiaUnknownActiveBradycardia, drug inducedUnknownActiveMucopurulent chronic bronchitisUnknownActiveCervical spondylosisUnknownActiveTransitional cell carcinoma determined by biopsy of kidlecnZnbmeaiIfbmli3010 w/ recurrenceGastroduodenitis with hemorrhageUnknown ActiveAdverse reaction to antiplatelet agentUnknownActiveAcute blood loss anemia UnknownActiveAcute upper gastrointestinal bleedingUnknownActiveSNHL (sensorineural hearing loss)UnknownActiveObesityUnknownActiveASHD (arteriosclerotic heart disease)UnknownActiveLHC: LCx PCI/stent, LAD PCI/stent, RCA PCI/stent - sthmaUnknownActiveInactive/Resolved Problems Medical Problem Onset Date Status Comments Cigarette nicotine dependence in remission Unknown Resolved Type 2 diabetes mellitus with diabetic polyneuropathyUnknownResolvedDyspnea UnknownResolvedLong term (current) use of antithrombotics/antiplateletsUnknown ResolvedNSTEMI (non-ST elevated myocardial infarction)UnknownResolvedEssential (primary) hypertensionUnknownResolvedChest pressureUnknownResolvedMelenaUnknown Resolved Medications Medication Status Dose Units Route Directions Qty Days St art Date Stop Date End Date Instructions Adherence Metformin 1,000 mg tablet Discontinued 0 .ROUTE.AJFXLXL25Zma 2023 1:17pmNovember 2023 3:32pmTAKE 1 TABLET BY MOUTH DAILYLisinopril 20 mg tabletDiscontinued0.ROUTE.IKBINTF03Lrx2023 1:15pmAugust 2023 1:41pmTAKE 1 TABLET BY MOUTH DAILYAlbuterol Sulfate 90 mcg/actuation HFA aerosol ptaihfqTkcyxoejrntt3UMPEIFLSRGBOIUWccsu 6 hours as needed for shortness of breath or wheezing8.530August 2023 12:00am November 29, 2024 6:16amInhalational Spacing Device (Aerochamber Mini) spacer Active0.ROUTE.IEPEYVXFQ3Dheucg 2023 12:00amUse with MDIAtorvastatin 10 mg nyuqnsBqgbwafjoefj90XZFNVeizd1199Jotfgo 2023 8:19pmOctober 2023 11:58amDapagliflozin Propanediol (Farxiga) 5 mg mafqgfIwdvftgdbckv0QKKPDvzcy2432 January 11, 2024 12:00amNovember 2023 12:32pmDapagliflozin Propanediol 10 mg puxqioMacsvaodrpxm80YZGPKmjqz4583Fkvjaslu 2023 12:31pmSeptember 2024 6:16amMetformin 1,000 mg gtfmybVavokrxxsgdg4820ZPOXUuqe2261Mfsqxkkn 14th, 2024 3:31pmMarch 2024 6:52amLinagliptin (Tradjenta) 5 mg tablet Nbiilvbwoysj5TDXYCjusc2295Nceoydrq 2023 1:00amDecember 2023 10:13am Blood Sugar Diagnostic (Onetouch Ultra Test) stripDiscontinued0.Mqqha186Otdxldqm2023 1:00amNovember 2023 9:28amto test blood sugar once dailyBlood Sugar Diagnostic (Onetouch Ultra Test) stripDiscontinued0.Xesql973Stjqirtl2023 9:28amApril 2024 1:38pmto test blood sugar once dailySemaglutide (Ozempic) 0.25 mg or 0.5 mg (2 mg/3 mL) pen injectorDiscontinued0.5MGSUBCUTevery rbqq618Umrofbe 2024 10:51amJanuary 2024 2:46pmfor 4 weeksSemaglutide (Rybelsus) 3 mg trronrAyqvwbvgilak7OFVOBzdpt6422Xqjklpz 2024 1:00amMarch 2024 9:12amMetformin 1,000 mg tabletDiscontinued0.ROUTE.FFXXSCS48Ziiuf 2024 6:52amOctober 2024 8:38amTAKE 1 TABLET BY MOUTH DAILYBlood Sugar Diagnostic (Onetouch Ultra Test) stripDiscontinued0.Dxggk229Cbuhx 2024 1:38pmApril 2024 4:03pmAs directed to test home BS bidBlood Sugar Diagnostic (Onetouch Ultra Test) stripActive0.Ivmnb782Kkodt 2024 4:02pmAs directed to test home BS qdLisinopril 20 mg tabletDiscontinued0.ROUTE.RKBOOFQ96 September 24, 2024 12:10amSeptember 2024 2:09pmTAKE 1 TABLET BY MOUTH DAILY Ticagrelor (Brilinta) 90 mg BobpieJfpusefkjgxt76EJCXXyodm kwjmn61283Iapfyjy 2023 12:00amSeptember 2024 2:10pmAtorvastatin 80 mg FpwnpcSgrpvr77ZN POEvery njuijue3347Ckwjnpq 2023 12:00amComplies with drug therapy Carvedilol 6.25 mg TabletDiscontinued6.25MGPOTwice daily with jadoh48416Mmemejt 2023 12:00amOctober 2023 11:08amAspirin 81 mg Tablet,Delayed Release (Dr/Ec)Anzdvsgwxuvu43NDOQCmudn5853Okbftvr 2023 12:00amSeptember 2024 2:10pmNitroglycerin 0.4 mg Tablet, SublingualActive0.6KBJMPWBSPYQUG3D as needed for Chest Ksot9070Kawyqtu 2023 12:00amComplies with drug therapyGabapentin 100 mg ksfzotcMmuzib349EIQULdbruZlfsoiwxc 2024 12:00amComplies with drug therapyEmpagliflozin 25 mg prabrnVropiubjkzsx54.5MGPODailySept2024 12:00amOctober 2024 8:38amMagnesium 200 mg fzsbcsDaqtgc246WLYKQomws November 29, 2024 12:00amComplies with drug therapyOmega 2-Pxz-Ufj-Fish Oil (Fish Oil) 1,000 (120-180) mg ixtuwyhWogpoj9SOWZIXtqyh dailySept2024 12:00amComplies with drug therapyMultivitamin (Daily Multi-Vitamin) tabletActive 1TABPODailySept2024 12:00amComplies with drug therapyGarlic (Garlic Oil) 1,000 mg rlffxhtUvthfmmvdyip6689JCNZVodvu dailySept2024 12:00am December 07, 2024 1:14pmCinnamon Bark (Cinnamon) 500 mg capsuleDiscontinued 500MGPODailySept2024 12:00amSept2024 1:14pmAmoxicillin- Pot Clavulanate 500-125 mg xbsxmyMradjqmgbqis9OMCOQLzzgd times dailySept2024 12:00amSeptember 2024 2:10pmPantoprazole (Protonix) 40 mg tablet,delayed release (DR/EC)Lfjqom85DHBJXl Gftywbpa5917Oigpkwvnz 23rd, 2025 12:00am40 mg twice daily for 8 weeks, then 40 mg daily for prophylaxis given ongoing need for antiplatelettherapyComplies with drug therapyLisinopril 5 mg mhlamfWdacae2EYOUDsfyy0304Yctbccmyd 23rd, 2025 2:09pmComplies with drug therapy Clopidogrel (Plavix) 75 mg nsajexUurktp22OYBADzavi1244Ldpxymbdy 23rd, 2025 12:00amComplies with drug therapyGlimepiride 1 mg ahshlhIzjpcuinxasq9AIFQDocaz astdqys8405Nfwzn 2024 12:00amJune 2024 9:14amadminister with breakfastGlimepiride 2 mg bxnpzmOrjlzq3SKWENifrn clanorc3632Wsox 2024 9:12amadminister with breakfastComplies with drug therapyAtorvastatin 10 mg attjamGmriyryksevq10UROKIvmvgNlwbu 2023 1:00amAugust 2023 8:19pm Lisinopril 20 mg barimeKgxugqxfqvrn14TIKIXabjoRegul 2023 1:00amMay 2023 1:15pmMetformin 1,000 mg lwhbvbXwhfrfbhtzkc2203TQPPKjvokFyfdc 2023 1:00amMay 2023 1:17pmLisinopril 20 mg lnvlmlQipyciaxqivs23ACNZPbdub0071 October 18, 2023 1:40pmJuly 2024 12:10amSemaglutide (Ozempic) 0.25 mg or 0.5 mg (2 mg/3 mL) pen injectorDiscontinued0.25MGSUBCUTevery week1.37568Vlbsqina 2023 1:00amJanuary 2024 10:51amfor 4 weeksCarvedilol 3.125 mg tablet Discontinued3.125MGPOTwice daily with lahkv13962Irizsuk 2023 11:07am November 29, 2024 6:16amEmpagliflozin-Metformin 12.5-1,000 mg tabletActive1 TABPOTwice dailyOctober 2024 12:00amComplies with drug therapy Immunizations Immunization Event Date Not Given Reason Dose Number [employer] Lot Number Vaccine Information Statement (VIS) Detail Administration Location DTap, unspecified January 18, 2017 DTap, unspecifiedMarch 2017Pneumococcal Conjugate Vaccine, 20 valent December 10, [id number] [facility] Medical Equipment Device Date Implanted Device Details CL STENT CONSTANCE FRONTIER 3.0 X 15 December 26 CL STENT CONSTANCE FRONTIER 3.0 X 18Octrug-eluting coronary artery stent, cop-daemkyktrdiif-rjsdquj-coatedOctc[facility] 2023UDI: [id number] Issuing Agency: [id number] Device Id: [id number] Lot Number: [id number] Procedures Procedure Date Performed Status XR chest 2V* December 05, 2024 2:52pm comp leted CT angio chest PE protocol December 05, 2024 7:18pm completed Stool Occult Blood (CURLY) December 05, 2024 co mpleted Relevant Diagnostic Tests and/or Laboratory Data Laboratory Results Test Collection Date/Time Result Date/Time Result Interpretation Reference Range Result Comment Performing Site Basophils # (Auto) December 09, 2024 10:06am December 09, 2024 10:06am 0.0 10 3/uL 0.0-0.1FerritinSeptember 2024 10:06amSept2024 10:06am10.0 ng/mLBelow low ynffvn89.0-388.0Basophils (%) (Auto)December 09, 2024 10:06am December 09, 2024 10:06am0.5 %0.2-2.0Eosinophils # (Auto)December 09, 2024 10:06amSept2024 10:06am0.3 10 3/uL0.0-0.7Eosinophils (%) (Auto) December 09, 2024 10:06amSept2024 10:06am4.2 %0.9-7.0Hematocrit December 09, 2024 10:06amSept2024 10:06am28.0 %Below low normal 42.0-54.0HemoglobinSeptember 2024 10:06amSept2024 10:06am9.2 g/dLBelow low ronzha20.0-18.0Immature Granulocyte # (Auto)December 09, 2024 10:06amSept2024 10:06am0.01 10 3/uL0.00-0.03Immature Granulocyte % (Auto)December 09, 2024 10:06amSept2024 10:06am0.2 %0.0-0.5 Lymphocytes # (Auto)December 09, 2024 10:06amSept2024 10:06am1.5 10 3/uL1.2-3.8Lymphocytes (%) (Auto)December 09, 2024 10:06amSept2024 10:06am22.4 %20.5-60.0Mean Corpuscular HemoglobinSeptember 2024 10:06amSept2024 10:06am29.4 pg25.9-34.0Mean Corpuscular Hemoglobin ConcentSept2024 10:06amS2024 10:06am32.9 g/dL 29.9-35.2Mean Corpuscular VolumeSept2024 10:06amSept2024 10:06am89.5 fL80.0-94.0Monocytes # (Auto)December 09, 2024 10:06amSept2024 10:06am0.4 10 3/uL0.3-0.8Monocytes (%) (Auto)December 09, 2024 10:06amSept2024 10:06am6.2 %1.7-12.0Mean Platelet VolumeSept2024 10:062024 10:06am8.7 fLBelow low normal9.5-13.5 Neutrophils # (Auto)December 09, 2024 10:06amSept2024 10:06am4.3 10 3/uL1.4-6.5Neutrophils (%) (Auto)December 09, 2024 10:06amS2024 10:06am66.5 %43.0-75.0Platelet CountSept2024 10:062024 10:36wm019 10 3/iD461-904Afd Blood CountSeptember 2024 10:06am December 09, 2024 10:06am3.13 10 6/uLBelow low normal4.70-6.10Red Cell Distribution WidthSept2024 10:06amSept2024 10:06am14.5 % 11.0-15.0Corrected White Blood CountSeptember 2024 10:06amS2024 10:06am6.5 10 3/uL4.0-11.0Corrected White Blood CountSeptember 2024 6:05amSept2024 6:43am6.3 10*3/uL4.1-10.5F[facility] [id number] [address] [facility] [address]Kotdukzfnsb WBC CountSeptember 2024 6:05amSeptember 2024 6:43am6.3 10*3/uL4.1-10.5FSelect [facility] [id number] [address] [facility] [address]Snx Blood CountSeptember 2024 6:05amSeptember 2024 6:43am2.73 10*6/uLBelow low normal3.90-5.60[facility] [id number] [address] [facility] [address]NncsxonthyKeajeqsfe 2024 6:05amSeptember 2024 6:43am8.1 g/dLBelow low uneilv11.0-17.0[facility] [id number] [address] [facility] [address]XnwunloemqAdbejecpz 2024 6:05amSeptember 2024 6:43am24.1 %Below low xcwcmi10.8-50.0[facility] [id number] [address] [facility] [address]Doge Corpuscular VolumeSeptember 2024 6:05amSeptember 2024 6:43am88.2 fL83.5-101[facility] [id number] [address] [facility] [address]Uoca Corpuscular HemoglobinSeptember 2024 6:05amSeptember 2024 6:43am29.8 pg27.5-35.2FSelect [facility] [id number] [address] [facility] [address]Inum Corpuscular Hemoglobin ConcentSeptember 2024 6:05am Kamille 2024 6:43am33.8 g/dL32.5-35.6F[facility] [id number] [address] [facility] [address]Bnx Cell Distribution WidthSeptember 2024 6:05amSeptember 2024 6:43am14.2 %12.0-14.8[facility] [id number] [address] [facility] [address]Ytnybcth CountSeptember 2024 6:05amSeptember 2024 6:30pn089 10*3/wB526-540MohzwzjpfMedina Hospital [facility] [id number] [address] [facility] [address]Ycid Platelet VolumeSeptember 2024 6:05amSeptember 2024 6:43am7.1 fL6.6-10.1FSelect [facility] [id number] [address] [facility] [address]Qelnaiap Distribution WidthSeptember 2024 4:08pmSeptember 2024 4:36pm18.12 %0.00-20.00[facility] [id number] [address] [facility] [address]Gkitenusfoi (%) (Auto)December 07, 2024 6:05amSept2024 6:43am69.2 %.[facility] [id number] [address] [facility] [address]Wzptlvxqhbc (%) (Auto)December 07, 2024 6:05amSept2024 6:43am20.1 %.[facility] [id number] [address] [facility] [address]Txplfwilz (%) (Auto)December 07, 2024 6:05amSept2024 6:43am5.5 %.[facility] [id number] [address] [facility] [address]Naqgxjrfbpf (%) (Auto)December 07, 2024 6:05amSeptember 2024 6:43am4.7 %.[facility] [id number] [address] [facility] [address]Nyusrckvg (%) (Auto)December 07, 2024 6:05amSeptember 2024 6:43am0.5 %.[facility] [id number] [address] [facility] [address]Jyvbdbayx RBC Relative Count (auto)December 07, 2024 6:05am December 07, 2024 6:43am0.1 /100{WBC}0-0.5FSelect [facility] [id number] [address] [place] [address]Brjsmrvtdnn # (Auto)December 07, 2024 6:05amSeptember 2024 6:43am4.3 10*3/uL1.8-7.7F[facility] [id number] [address] [place] [address]Jqjvuchbcfi # (Auto)December 07, 2024 6:05amSeptember 2024 6:43am1.3 10*3/uL1.00-4.8[facility] [id number] [address] [place] [address]Pqyzeshhz # (Auto)December 07, 2024 6:05amSept2024 6:43am0.3 10*3/uL0.0-0.8[facility] [id number] [address] [place] [address]Pafgcdntuao # (Auto)December 07, 2024 6:05amSeptember 2024 6:43am0.3 10*3/uL0.0-0.45[facility] [id number] [address] [place] [address]Vzzmvnpsv # (Auto)December 07, 2024 6:05amSeptember 2024 6:43am0.0 10*3/uL0.0-0.2F[facility] [id number] [address] [place] [address]Uugxsfxvjvo TimeSeptember 2024 4:08pmSept2024 5:08pm10.6 s9.0-12.9A hematocrit value greater than 55% may lead to inaccurate results in coagulation testing. Patientshaving hematocrit values >55% require a special collection tube for coagulation studies. Please contact the laboratory at [phone] for redraw instructions.[facility] [id number] [address] [facility] [address]Fkgattgtb Time International RatioSept2024 4:08pm December 05, 2024 5:08pm0.9INR Therapeutic Range A) Pre- and Peroperative OAT started two weeks before surgery. NOT HIP SURGERY: 1.5 - 2.5 HIP SURGERY: 2 - 3B) Primary and secondary prevention of venous THROMBOSIS: 2 - 3C) Active venous thrombosis, pulmonary embolismand prevention of recurrent venous thrombosis: 2 - 3D) Prevention of arterial thromboembolismincluding patients with mechanical heart valves: 3 - 4.5F[facility] [id number] [address] [facility] [address]Prbbzdajh Partial Thromboplast TimeSept2024 4:08pm December 05, 2024 5:08pm27.2 s25.1-36.5A hematocrit value greater than 55% may lead to inaccurate results in coagulation testing. Patientshaving hematocrit values >55% require a special collection tube for coagulation studies. Please c ontact the laboratory at [phone] for redraw instructions.[facility] [id number] [address] [facility] [address]Pxgrvwd LevelSeptember 2024 6:05amSept2024 6:65by459 mg/dLAbove high wjdzgo00-789YZU recommended reference rangeRandom Glucose Reference Range is dependent on time and content of last meal. Glucose of more than 200 mg/dL in a nonstressed, ambulatory subject supports the diagnosisof Diabetes Mellitus.[facility] [id number] [address] [facility] [address]Bltem Urea NitrogenSeptember 2024 6:05amSept2024 6:57am20 mg/dL7-[facility] [id number] [address] [facility] [address]CuyqiwxldhTwwjqbahe 2024 6:05amSeptember 2024 6:57am1.03 mg/dL0.70-1.30[facility] [id number] [address] [facility] [address]Alsggsznq GFR (CKD-EPI)December 07, 2024 6:05amSept2024 6:57am> 60.0 mL/MinMedina [facility] [id number] [address] [facility] [address]Sawpvg LevelSeptember 2024 6:05amSeptember 2024 6:62sv288 mmol/X827-882EyxrgemzxMed[facility] [id number] [address] [facility] [address]Ixbqdjzum LevelSeptember 2024 6:05amSeptember 2024 6:57am4.2 mmol/L3.5-5.1F[facility] [id number] [address] [facility] [address]Sxqauzyk LevelSeptember 2024 6:05amSeptember 2024 6:42eb966 mmol/D03-477JfvghqfhyMedina Hospital [facility] [id number] [address] [facility] [address]Bwzvyl Dioxide LevelSeptember 2024 6:05amSeptember 2024 6:57am27.3 mmol/L21.0-31.0[facility] [id number] [address] [facility] [address]Fqdnx GapSeptember 2024 6:05amSeptember 2024 6:57am 8.9 mEq/L6.0-15.0[facility] [id number] [address] [facility] [address]Mpxcgal LevelSeptember 2024 6:05amSeptember 2024 6:57am8.3 mg/dLBelow low normal8.6-10.3F[facility] [id number] [address] [facility] [address]Hoymcslyg LevelSeptember 2024 6:05amSeptember 2024 6:57am2.2 mg/dL1.9-2.7F[facility] [id number] [address] [facility] [address]Ooztr ProteinSeptember 2024 6:05amSeptember 2024 6:57am5.8 g/dLBelow low normal6.4-8.9[facility] [id number] [address] [facility] [address]BmtvmnuTlkkravlt 2024 6:05amSeptember 2024 6:57am 3.8 g/dL3.5-5.7F[facility] [id number] [address] [facility] [address]RgqflmfsHpygvsyvr 2024 6:05amSeptember 2024 6:57am 2.0 g/dLMedina [facility] [id number] [address] [facility] [address]Nvrqwmy/Globulin RatioSeptember 2024 6:05amSeptember 2024 6:57am1.9[facility] [id number] [address] [facility] [address]Gpopd BilirubinSeptember 2024 6:05amSeptember 2024 6:57am0.4 mg/dL0.3-1.0[facility] [id number] [address] [facility] [address]Mrtyecqij Amino Transf (AST/SGOT)December 07, 2024 6:05am December 07, 2024 6:57am12 U/LBelow low ansnjx86-68SdkbmwtqdMedina Hospital [facility] [id number] [address] [facility] [address]Kultcbc Aminotransferase (ALT/SGPT)December 07, 2024 6:05am December 07, 2024 6:57am18 U/L7-52[facility] [id number] [address] [facility] [address]Prhtgotm PhosphataseSeptember 2024 6:05amSeptember 2024 6:57am76 U/V58-731SsnbalybfMedina Hospital [facility]tr [id number] [address] [facility] [address]Ofzamfme I High SensitivitySeptember 2024 7:25amSeptember 2024 9:05am17 ng/L0-20The Troponin units of report have been changed to meet the Chest Pain Accreditation requirement, element EC5.M1l2. Troponin units are changed from pg/ml to ng/L. Also, the decimal is removed and results are in whole numbers.[facility] [id number] [address] [facility] [address]J-Pnlz Natriuretic PeptideSeptember 2024 4:08pmSeptember 2024 5:02pm35.0 pg/mL5-100[facility] [id number] [address] [facility] [address]Mytfhyca Creatinine Clearance (ChemSeptember 2024 6:05am December 07, 2024 6:57am71.75[facility] [id number] [address] [place] [address]Zenauhz GlucoseSeptember 2024 11:44amSeptember 2024 11:34rk842 mg/dLRandom Glucose Reference Range is dependent on time and content of last meal. Glucose of more than 200 mg/dL in a nonstressed, ambulatory subject supports the diagnosis of Diabetes Mellitus.Point of Care testingBedside Glucose CommentSeptember 2024 6:39amSeptember 2024 6:15gmDil1: cleaned meterPoint of Care testing Microbiology Results Procedure Source Result Collection Date/Time Result Date/Time Result Comment Performing Site Stool Occult Blood (CURLY) Stool December 05, 2024 6:39pmSept2024 6:59pmMedina Hospital Ctr [id number] [address] [place] [address] Diagnostic Imaging Reports Author Dallas Mendoza [facility] CenterAuthoredSept2024 3:15pmReport Dictated Date/TimeDictated ByStatusRadiology ReportSept2024 3:15pm Dallas Mendoza [facility] [place] [id number] XRay Report Signed Patient: Jesse Garrison MR#: [id number] : 1950 Acct:[id number] Age/Sex: 74 / M ADM Date: 5 Loc: ER Room: Type: PRE ER Attending Dr: Copies to: Mavis Gonzalez APRN TEMP, PROVIDER~ Ordering Provider: Mavis Gonzalez APRN Date of Service: 12/05/24 XR/XR chest 2V*: Chest Pain PA AND LATERAL CHEST: CLINICAL HISTORY: Weakness, dizziness, shortness breath COMPARISON: 11/29/2024 FINDINGS: Unremarkable cardiomediastinal. Lungs clear. No effusion or pneumothorax. XR/XR chest 2V* IMPRESSION: NO ACUTE CARDIOPULMONARY ABNORMALITY. Impression dictated by: Dallas Mendoza M.D. 12/05/2024 3:16 PM Dictation Location: RADIO-PC-29 Transcribed By: [facility] 12/05/241515 Dictated By: Dallas Mendoza MD 12/05/241514 Signed By: <Electronically signed by Dallas Mendoza MD in OV> 12/05/241515 Author Dallas Mendoza [facility] CenterAuthoredSeptember 2024 7:59pmReport Dictated Date/TimeDictated ByStatusRadiology ReportSeptember 2024 7:59pm [facility]plete[facility] [place] [address] [place] [address] CT Scan Report Signed Patient: Jesse Garrison MR#: [id number] : 1950 Acct:[id number] Age/Sex: 74 / M ADM Date: 5 Loc: ER Room: Type: [facility] ER Attending Dr: Copies to: Mavis Gonzalez APRN~ Ordering Provider: Mavis Gonzalez APRN Date of [...] Mendoza M.D. 12/05/2024 8:01 PM Dictation Location: [facility]--29 Transcribed By: PWS 12/05/242000 Dictated By: Dallas Mendoza MD 12/05/241958 Signed By: <Electronically signed by Dallas Mendoza MD in OV> 12/05/242000 Vital Signs Vital Reading Result Reference Range Collection Date/Time Height 69 [in_i] December 03, 2024 2:99kwDaxinz92.70 kgSeptember 2024 6:00amBody Hjxtpfktmka11.6 [degF]97.6-99.0September 2024 8:00amHeart Rate62 /min 60-100September 2024 8:00amRespiratory rate18 /dxb04-10Fedwvhsum 2024 8:00amOxygen saturation by Pulse ocpaanvf17 %95-100September 2024 8:00amBP Phabvsst914 mm[Hg]100-140September 2024 8:00amBP Hxvtkzrlu09 mm[Hg]60-100September 2024 8:76zfPjldrz60 [in_i]December 05, 2024 10:11onTmripd44.50 kgSept2024 5:55amBody Mzyqtuugcvk81.1 [degF] 97.6-99.0September 2024 9:00amHeart Rate62 /yov15-633Ruplwltrj 2024 12:00pmRespiratory rate16 /cjp91-11Ttkzphmri 27th, 2025 12:00pmOxygen saturation by Pulse dgsybppb75 %95-100September 2024 12:00pmBP Efdfggui794 mm[Hg] 100-140September 2024 12:00pmBP Jvhegvvhr39 mm[Hg]60-100September 2024 12:11toYnobex40 [in_i]December 10, 2024 2:87tvHhqrdd47.52 kgSeptember 2024 2:34pmHeart Rate73 /stl52-220Qkvrughbk 30th, 2025 2:34pmRespiratory rate12 /mig39-07Tjkemdgwo 2024 2:34pmBP Cpmbsjra767 mm[Hg]100-140September 2024 2:34pmBP Gpyvjhgzo73 mm[Hg]60-100Sept2024 2:34pmBMI (Body Mass Index)29.1 kg/n3Yyhyirxzr2024 2:02ddRewyyr36 [in_i]December 24, 2024 8:23fxVvwxoh88.90 kgOctcumberland county hospital 2024 8:36amHeart Rate65 /wqk30-025 December 24, 2024 8:36amRespiratory rate14 /wvl36-16Zhukohl 2024 8:36am Oxygen saturation by Pulse utjixuzg67 %95-100Oct2024 8:36amBP Ovsxtomj334 mm[Hg]100-140Oct2024 8:36amBP Cjjhejrvx53 mm[Hg]60-100 December 24, 2024 8:36amBMI (Body Mass Index)28.9 kg/k9Wtmttto 2024 8:36am Advance Directives Advance Directive Response Recorded Date/ Time Advance Directives No December 18, 2018 7:37am Insurance Providers Guarantor Jesse Garrison Address [address] [place] [id number] Info.Home Phone: Payer Policy Id Subscriber's Name Subscriber Id Effectiv e Date Expiration Date Medicare [id number] Jesse Garrison [id number] Medicare [employer] [id number] [employer] [id number] [id number] Encounters Encounter Location(s) Arrival/Admit Date Discharge/Depart Date Provider(s) Non-patient / Non-visit -[facility] 2024 8:13am Halle Navarro-[facility] / [facility] 9:06amChristen Dunbar CMADischarged Inpatient-[facility] December 05, 2024 8:28pmSeptember 2024 2:00pmHalle Loving- patient / Duo-mrdqi-[employer]September 2024 10:06am Antoni Cohn , ODALYSeparted Physician/Provider [facility] 1:55pmSeptember 2024 3:00pmAntoni Cohn DO Departed Phys[facility] 2024 9:10amBenclemente Cohn DO Recent Diagnosis Onset Date Admit Date Essential (primary) hypertension Unknown November 29, 2024 8:13am residential (current) use of antithrombotics/antiplatelets Unknown November 29, 2024 8:1 3am Melena Unknown November 29, 2024 8:13am Type 2 diabetes mellitus wit h diabetic polyneuropathy Unknown November 29, 2024 8:13am Acute electrocardiogram changes Unknown November 29, 2024 8:13am Anemia Unknown November 29, 2024 8:13am Dyslipidemia Unknown November 29, 2024 8:13am GI bleed Unknown November 29, 2024 8:13am Stented coronary artery Unknown 2024 8:13am Acute blood loss anemia Unknown 2024 8:28pm ASHD (arteriosclerotic heart disease) Unknown December 05, 2024 8:28pm Gastroduodenitis with hemorrhage Unknown December 05, 2024 8:28pm Chest pressure Unknown December 05, 2024 8:28pm Dyspnea Unknown December 05, 2024 8:28pm Type 2 diabetes mellitus wit h diabetic polyneuropathy Unknown December 05, 2024 8:28pm Anemia Unknown December 05, 2024 8:28pm GI (gastrointestinal bleed) Unknown Nov 8:28pm T2DM (type 2 diabetes mellitus) Unknown December 05, 2024 8:28pm Acute blood loss anemia Unknown 2024 1:55pm Adverse reaction to antiplatelet agent Unknown December 10, 2024 1:55pm ASHD (arteriosclerotic heart disease) Unknown December 10, 2024 1:55pm Gastroduodenitis with hemorrhage Unknown December 10, 2024 1:55pm Mucopurulent chronic bronchitis Unknown December 10, 2024 1:55pm Nicotine addiction Unknown November 1:55pm Obesity Unknown December 10, 2024 1:55pm Type 2 diabetes mellitus with hyperglycemia Unkn own December 10, 2024 1:55pm Essential (primary) hypertension Unknown December 10, 2024 1:55pm Type 2 diabetes mellitus wit h diabetic polyneuropathy Unknown December 10, 2024 1:55pm Acute blood loss anemia Unknown December 24, 2024 8:19am Adverse reaction to antiplatelet agent Unknown December 24, 2024 8:19am ASHD (arteriosclerotic heart disease) Unknown December 24, 2024 8:19am Gastroduodenitis with hemorrhage Unknown December 24, 2024 8:19am Mucopurulent chronic bronchitis Unknown December 24, 2024 8:19am Nicotine addiction Unknown December 24, 2024 8:19am Obesity Unknown December 24 8:19am Type 2 diabetes mellitus with hyperglycemia Unkn own December 24, 2024 8:19am Essential (primary) hypertension Unknown December 24, 2024 8:19am Type 2 diabetes mellitus wit h diabetic polyneuropathy Unknown December 24, 2024 8:19am Functional Status Observation Response Date Recorded Dressing Patient at Baseline December 072024 4:32pm Eating Patient at Baseline December 072024 4:32pm Bathing Patient at Baseline December 072024 4:32pm Disability Status Patient at Baseline December 07, 2024 4:32pm Mental Status Observation Response Date Recorded Cognitive Status Patient at Baseline November 122024 4:32pm Cognitive/Mental Status Assessments Assessments Diagnosis Onset Date Resolution Status Admit Date Essential (primary) hypertension resolvedSept2024 8:13amLong term (current) use of antithrombotics/antiplateletsresolvedSept2024 8:13amMelenaresolved November 29, 2024 8: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 resolvedSeptember 2024 8:13amAcute electrocardiogram changesdeleted November 29, 2024 8:13amAnemiadeletedSeptember 2024 8:13amDyslipidemia deletedSeptember 2024 8:13amGI bleeddeletedSeptember 2024 8:13am Stented coronary arterydeletedSept2024 8:13amAcute blood loss anemia acuteSept2024 8:28pmASHD (arteriosclerotic heart disease)acute December 05, 2024 8:28pmGastroduodenitis with hemorrhageacuteSept2024 8:28pmChest pressureresolvedSept2024 8:28pmDyspnearesolved December 05, 2024 8: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 resolvedSept2024 8:28pmAnemiadeletedSept2024 8:28pmGI (gastrointestinal bleed)deletedSept2024 8:24isS0HL (type 2 diabetes mellitus)deletedSept2024 8:28pmAcute blood loss anemiaacuteSept2024 1:55pmAdverse reaction to antiplatelet agentacuteSept2024 1:55pmASHD (arteriosclerotic heart disease)acuteSept2024 1:55pm Gastroduodenitis with hemorrhageacuteSept2024 1:55pmMucopurulent chronic bronchitisacuteSept2024 1:55pmNicotine addictionacute December 10, 2024 1:55pmObesityacuteSept2024 1:55pmType 2 diabetes mellitus with hyperglycemiaacuteSept2024 1:55pmEssential (primary) hypertensionresolvedSept2024 1: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 1:55pmAcute blood loss anemiaacuteOct2024 8:19amAdverse reaction to antiplatelet agentacuteOct2024 8:19amASHD (arteriosclerotic heart disease)acute December 24, 2024 8:19amGastroduodenitis with hemorrhageacuteOctober 2024 8:19amMucopurulent chronic bronchitisacuteOctober 2024 8:19amNicotine addictionacuteOctober 2024 8:19amObesityacuteOctober 2024 8:19amType 2 diabetes mellitus with hyperglycemiaacuteOctober 2024 8:19amEssential (primary) hypertensionresolvedOctober 2024 8:19amType 2 diabetes mellitus with diabetic polyneuropathyresolvedOctober 2024 8:19am Plan of Treatment Author Antoni Cohn [facility] CenterAuthoredOctcumberland county hospital 2024 8:04amUpper GIB EGD w/ gastroduodenitis - 12/02/24 Transfused 2 units PRBC. Secondary to DAPT w/ ASA and Brilinta. Change antiplatelet therapy to Plavix alone. Initiated PPI and instructed to take bid x 8 wks Prescribed Pantoprazole 40mg bid (guidelines state bid dosing should continue for 2 wks after which can be reduced to qd for completion of treatment course) - recommend lifelong prophylactic treatment due to lifelong antiplatelet therapy. His anemia has resulted in two admission to the hospital for chest pain, dyspnea and lightheadedness. Given his Ferritin of 10, I am recommending IV Fe to expedite the correction of his Fe stores and anemia. [facility]: - LCx 99%, LAD 80%, RCA 85% - s/p LCx PCI/stent, LAD PCI/stent, RCA PCI/stent Recently developed chest pain, dyspnea and lightheadedness w/ recent GIB w/ anemia. Monitor closely and schedule IV Fe to expedite the repletion of Fe stores and anemia Continue Plavix and Atorvastatin without interruption - ASA and Brilinta have been d/c'd due to GIB I have instructed this patient to follow a comprehensive diabetic treatment plan. I have also instructed them to check their feet daily for calluses and nonhealing ulcers. I have instructed them to have a yearly dilated eye examination. I have reviewed their treatment goals: SBP less than 130, LDL less than 100, FBS less than 140, A1C less than 7%. I have instructed them to maintain a home BS log and bring the results to each of their office visits for review. I have explained the importance of routine monitoring of their A1C, Microalbumin and Lipids. I have explained the benefits of well controlled diabetes in preventing micro and macrovascular complications. Continue Metformin without interruption Record FBS for next 2 wks and update office Will need to add to the Metformin to improve control, goal < 7.5% Added Farxiga and Tradjenta but not improving his BS Suggested d/c Tradjenta and initiating Glimepiride I have instructed the patient to inspect their feet daily for cuts and calluses. I have recommended shoes and inserts to prevent callus formation. I have reviewed fall precautions. I have instructed this patient to consume a healthy, low-fat, low-salt diet. I have also encouraged them to continue exercise with weight loss to achieve/maintain a BMI < 30. I have instructed this patient on the correct procedure for obtaining home BP measurements:? - rest for 5 minutes w/o talking. - positioned w/ feet on floor and arms supported. - average best 2/3 readings w/ goal < 135/85. - update office w/ home readings in 2 weeks. Continue Lisinopril without interruption - temporarily decreased to 5mg due to volume depletion from acute blood loss anemia Instructed on use of mucolyitics No inhalers necessary No ER visits for AECOPD Reviewed vaccine recommendations due to increased of respiratory complications I have instructed this patient on a low-fat, high-fiber diet.?? I have also instructed them to reduce calories, portions sizes, sweet drinks and snacks.?? I have also recommended they exercise for 30 minutes, 3-5 times weekly. They are aware of the comorbid conditions associated with excessive weight: Diabetes, HTN, Hyperlipidemia, CAD and arthritis. Smokes w/o inhaling 2 cigars daily Upper GIB EGD w/ gastroduodenitis - 12/02/24 Transfused 2 units PRBC. Secondary to DAPT w/ ASA and Brilinta. Change antiplatelet therapy to Plavix alone. Prescribed Pantoprazole 40mg bid (guidelines state bid dosing should continue for 2 wks after which can be reduced to qd for completion of treatment course) - recommend lifelong prophylactic treatment due to lifelong antiplatelet therapy. Acute upper GIB w/ blood loss anemia. - required transfusion of 2 units of PRBCs Brilinta and ASA therapy have been stopped and lone antiplatelet therapy with Plavix has been initiated. Author Antoni Cohn [facility] CenterAuthoredSeptember 2024 9:43pmLHC: - LCx 99%, LAD 80%, RCA 85% - s/p LCx PCI/stent, LAD PCI/stent, RCA PCI/stent Recently developed chest pain, dyspnea and lightheadedness w/ recent GIB w/ anemia. Monitor closely and schedule IV Fe to expedite the repletion of Fe stores and anemia Continue Plavix and Atorvastatin without interruption - ASA and Brilinta have been d/c'd due to GIB I have instructed this patient to follow a comprehensive diabetic treatment plan. I have also instructed them to check their feet daily for calluses and nonhealing ulcers. I have instructed them to have a yearly dilated eye examination. I have reviewed their treatment goals: SBP less than 130, LDL less than 100, FBS less than 140, A1C less than 7%. I have instructed them to maintain a home BS log and bring the results to each of their office visits for review. I have explained the importance of routine monitoring of their A1C, Microalbumin and Lipids. I have explained the benefits of well controlled diabetes in preventing micro and macrovascular complications. Continue Metformin without interruption Record FBS for next 2 wks and update office Will need to add to the Metformin to improve control, goal < 7.5% Added Farxiga and Tradjenta but not improving his BS Suggested d/c Tradjenta and initiating Glimepiride I have instructed this patient to consume a healthy, low-fat, low-salt diet. I have also encouraged them to continue exercise with weight loss to achieve/maintain a BMI < 30. I have instructed this patient on the correct procedure for obtaining home BP measurements:? - rest for 5 minutes w/o talking. - positioned w/ feet on floor and arms supported. - average best 2/3 readings w/ goal < 135/85. - update office w/ home readings in 2 weeks. Continue Lisinopril without interruption - temporarily decreased to 5mg due to volume depletion from acute blood loss anemia Instructed on use of mucolyitics No inhalers necessary No ER visits for AECOPD Reviewed vaccine recommendations due to increased of respiratory complications I have instructed this patient on a low-fat, high-fiber diet.?? I have also instructed them to reduce calories, portions sizes, sweet drinks and snacks.?? I have also recommended they exercise for 30 minutes, 3-5 times weekly. They are aware of the comorbid conditions associated with excessive weight: Diabetes, HTN, Hyperlipidemia, CAD and arthritis. Smokes w/o inhaling 2 cigars daily Upper GIB EGD w/ gastroduodenitis - 12/02/24 Transfused 2 units PRBC. Secondary to DAPT w/ ASA and Brilinta. Change antiplatelet therapy to Plavix alone. Initiated PPI and instructed to take bid x 8 wks Prescribed Pantoprazole 40mg bid (guidelines state bid dosing should continue for 2 wks after which can be reduced to qd for completion of treatment course) - recommend lifelong prophylactic treatment due to lifelong antiplatelet therapy. His anemia has resulted in two admission to the hospital for chest pain, dyspnea and lightheadedness. Given his Ferritin of 10, I am recommending IV Fe to expedite the correction of his Fe stores and anemia. Upper GIB EGD w/ gastroduodenitis - 12/02/24 Transfused 2 units PRBC. Secondary to DAPT w/ ASA and Brilinta. Change antiplatelet therapy to Plavix alone. Prescribed Pantoprazole 40mg bid (guidelines state bid dosing should continue for 2 wks after which can be reduced to qd for completion of treatment course) - recommend lifelong prophylactic treatment due to lifelong antiplatelet therapy. I have instructed the patient to inspect their feet daily for cuts and calluses. I have recommended shoes and inserts to prevent callus formation. I have reviewed fall precautions. Acute upper GIB w/ blood loss anemia. - required transfusion of 2 units of PRBCs Brilinta and ASA therapy have been stopped and lone antiplatelet therapy with Plavix has been initiated. Future Tests Future scheduled test information is unavailable Pending Tests Pending diagnostic test information is unavailable Future Visits Future appointment information is unavailable Referrals to Other Providers Reason for Referral Referral Start Date Provider Julius ledesma Contact Information Provider Address W Ko Luz: [email or web address] Phone: [phone] [address] [address]Rlwiqv-gl with your Primary Care Provider, call office to reschedule if needed.Nehemiah Uriarte Phone: [phone] [facility] [address]I Ko Luz: [email or web address] Phone: [phone] [address] [address]Kwv have been scheduled for a follow up appointment for the following date and time, please call to reschedule if needed.Nehemiah Uriarte Phone: [phone] [facility] [address]Ers office will contact you with pathology results from your EGD. If you have any questions, please call the office.Mane Sommer MDWork Phone: [phone] [facility], [address] [facility] [address] Future Procedures Procedure Name Ordered Date Scheduled Date Admit Status Order December 05, 2024 8:28pm S eptember 2024 8:28pm Discharge Order December 07, 2024 1:14pm Sept ember 2024 1:14pm Complete Blood Count Auto Diff December 03, 2024 2:07pm Admit Status OrderSeptember 2024 8:13amSeptember 2024 8:13amConsult to CardiologySeptember 2024 9:32amSeptember 2024 9:32amDischarge OrderSeptember 2024 2:10pmSeptember 2024 2:10pmConsult to GastroenterologySepttuba [facility] 2024 8:17amSeptember 2024 8:17am Contraindication No VTE ProphylaxisSepttuba city regional health care [facility] 2024 10:43amSeptember 2024 10:45amComplete Blood Count Auto DiffSept2024 12:24pmComplete Blood Count Auto DiffSeptember 2024 9:54pmIron and TIBC ProfileSept2024 9:54pmFerritinSeptember 2024 9:54pm Future Medications Future medication information is unavailable Patient Instructions Instruction Admit Date Clopidogrel Pantoprazole Gastritis - Discharge instructions GI bleed - Discharge instructions [facility] 20[facility] 8:13amHope Pamphlet [facility] 8:28pm Goals Acute Goals Author Authored Date Maintain/increase activity l evels * Understands factors that may lead to activity intolerance * Helps perform self care activities * Maintains maximum range of motion * Increase/regain muscle mass and strength * Maintains VS WNL during activity * Maintain intact skin integrity Updated: 3[facility]thept[facility] 2024 4:32pmExhibit optimal tissue perfusion * Exhibits adequate oxygenation and ventilation * Exhibits adequate cardiac output * Regains stable cardiac rhythm * Maintains optimal activity level * Maintains balanced intake and outputClDayton Children's Hospitalember 2024 4:32pm Preferences Type Detail Treatment Intervention Code Status: Full Code
--- OUTSIDE RECORDS SUMMARY | 2025-01-07 07:15 | XMS_ITS | Clinical Summary ---
Author Organization [facility] Address [address] [place] [address] Care Team Providers Care Water Technician Name Role Phone Unavailable Primary Care Provider Unavailabl e Social History Tobacco UseTypesPacks/DayYears UsedDateSmoking Tobacco: Never AssessedSex and Gender InformationValueDate RecordedSex Assigned at BirthNot on fileLegal Sex Male05/25/2022 8:13 PM EDTGender IdentityNot on fileSexual OrientationNot on file Last Filed Vital Signs Vital SignReadingTime TakenCommentsBlood Fvvpbqqa917/7301/21/2022 12:00 PM EST Pulse--Temperature--Respiratory Rate--Oxygen Saturation--Inhaled Oxygen Concentration--Bwenwd04 kg (205 lb)01/21/2022 12:00 PM YCMKxzjjv616.3 cm (5' 9 ) 01/21/2022 12:00 PM ESTBody Mass Index30.27103/23/2021 12:00 PM EST Plan of Treatment Not on file Insurance * Guarantor: Jesse GarrisonAccount TypeRelation to PatientDate of BirthPhone Billing AddressPersonal/BczlgeW[id number] [place] [id number] [place] [address]
--- OUTSIDE RECORDS SUMMARY | 2025-01-07 07:15 | XMS_ITS | Clinical Summary ---
Author Organization [facility] Address [address] [place] [address] Care Team Providers Care Hogshead Wrecker Name Role Phone Unavailable Primary Care Provider Unavailabl e Source Comments The following information is NOT included in Care Everywhere downloads:Psychiatric notes, ECG results, Cardiac Rehab notes, Pulmonary Function notes, data from SmartForms (includes but not limited toPregnancy data,audiograms, eye exams, pre-surgical evaluation notes, well-child exam data).[facility] Encounters DateTypeDepartmentCare EpngDoeqkiushcf81/04/2025 9:04 AM EDT - 10/14/2024 11:59 PM EDTHospital Encounter [facility] [id number] [place] [address] Arthritis Discharge Disposition: HOV Zpiiozbai40/04/2025Transcribe Orders [facility] [address] [place] [address] Chuck Oquendo from Last 3 Months Immunizations ImmunizationAdministration DatesNext DueTdap (MLL=427)08/24/2024 Social History Tobacco UseTypesPacks/DayYears UsedDateSmoking Tobacco: Never AssessedSex and Gender InformationValueDate RecordedSex Assigned at BirthNot on fileLegal Sex Male10/14/2024 8:58 AM EDTGender IdentityNot on fileSexual OrientationNot on file Plan of Treatment Health MaintenanceDue DateLast TkakEdraccrqVdmvjkawtyo1950Hepatitis C Tezruins62/05/1968Hepatitis A (HAV) Vaccine (optional start 19+ years)1970 CRC Lceqjuzun02/05/1996Cologuard (Stool DNA)02/15/1996FIT02/15/1996Pneumococcal Vaccine(s) (50+ yrs) (1 of 1 - PCV)2001Shingles (RZV) Vaccine (1 of 2) 2001Hepatitis B (HBV) Vaccine (optional start 60+ years)2011COVID-19 Vaccine (1 - 2024- season)2024Influenza Vaccine (#1)2024RSV vaccine (adult) (1 - 1-dose 75+ series)02/14/20262094Nffxoyozrdg85/14/ Tetanus (Td or Tdap) Zlqdtwe34/14/Tdap WqrykcsNdfflqahb87/14/2025 Procedures Procedure NamePriorityDate/TimeAssociated DiagnosisCommentsXR FOOT RIGHT 3 VIEWS Mbkamah4810/14/2024 9:21 AM EDT Arthritis XR L-SPINE AP+LATERAL 2-3 ZFGYKWkjxsrr99/04/2025 9:20 AM EDT Arthritis XR KNEE LEFT AP+LAT 2 JPORYNbpgroz23/04/2025 9:20 AM EDT Arthritis from Last 3 Months Results * XR FOOT RIGHT 3 VIEWS (10/14/2024 9:21 AM EDT)Anatomical RegionLaterality ModalityXR Right Lower Extremity, FootRightComputed RadiographySpecimen (Source)Anatomical Location / LateralityCollection Method / VolumeCollection TimeReceived Time10/14/2024 4:56 PM EDT Narrative 10/14/2024 4:58 PM EDT EXAMINATION: XR FOOT RIGHT 3 VIEWSPRO/RT 10/14/2024 [...] radiopaque foreign bodies. Right foot MACRO: None Procedure Note Luis Fernando Means DO - 10/14/2024 EXAMINATION: XR FOOT RIGHT 3 VIEWSPRO/RT 10/14/2024 09:21 AM CLINICAL HISTORY: ARTHRITIS ASSOCIATED DIAGNOSIS: Arthritis ORDERING PROVIDER: CHUCK OQUENDO TECHNNICK NOTE: COMPARISON: None IMPRESSION: The bones are osteopenic. No acute fracture or dislocation. Bipartitehallux sesamoid. Chronic posttraumatic deformities along the first andsecond proximal phalanx bases. Scattered degenerative changes, mostpronounced at the second tarsometatarsal joint, severe. Plantar andposterior calcaneal enthesophytes. No radiopaque foreign bodies. Right foot MACRO: None Authorizing ProviderResult TypeResult StatusDavid [facility] DIAGNOSTIC X-RAYFinal Result * XR L-SPINE AP+LATERAL 2-3 VIEWS (10/14/2024 9:20 AM EDT)Anatomical Region LateralityModalityXR L- Spine, L-spineN/AComputed RadiographySpecimen (Source) Anatomical Location / LateralityCollection Method / VolumeCollection Time Received Time10/14/2024 4:58 PM EDT Narrative 10/14/2024 5:00 PM EDT EXAMINATION: XR L-SPINE AP+LATERAL 2-3 VIEWS 10/14/2024 09:20 AM CLINICAL HISTORY: ARTHRITIS ASSOCIATED DIAGNOSIS: Arthritis ORDERING PROVIDER: CHUCK OQUENDO TECHNNICK NOTE: COMPARISON: None FINDINGS: 5 nonrib-bearing lumbar-type vertebrae. Osteopenia. Trace stepwise retrolisthesis at L2-L3, L3-L4, and L4-L5. No acute compression deformity. Multilevel degenerative disc disease, most pronounced at L4-L5, moderate. Moderate to severe multilevel facet arthropathy. Aortic atherosclerotic calcifications. Degenerative changes within the right SI joint. IMPRESSION: 1. ??No acute fracture. 2. ??Multilevel lumbar spondylosis. MACRO: None Procedure Note Luis Fernando Means DO - 10/14/2024 EXAMINATION: XR L-SPINE AP+LATERAL 2-3 VIEWS 10/14/2024 09:20 AM CLINICAL HISTORY: ARTHRITIS ASSOCIATED DIAGNOSIS: Arthritis ORDERING PROVIDER: CHUCK OQUENDO TECHNNICK NOTE: COMPARISON: None FINDINGS: 5 nonrib-bearing lumbar-type vertebrae. Osteopenia. Trace stepwise retrolisthesis at L2-L3, L3-L4, and L4-L5. Noacute compression deformity. Multilevel degenerative disc disease, mostpronounced at L4-L5, moderate. Moderate to severe multilevel facetarthropathy. Aortic atherosclerotic calcifications. Degenerative changes within theright SI joint. IMPRESSION: 1. No acute fracture. 2. Multilevel lumbar spondylosis. MACRO: None Authorizing ProviderResult TypeResult StatusDavid Gray PulverEC DIAGNOSTIC X-RAYFinal Result * XR KNEE LEFT AP+LAT 2 VIEWS (10/14/2024 9:20 AM EDT)Anatomical Region LateralityModalityXR Left Lower Extremity, KneeLeftComputed Radiography Specimen (Source)Anatomical Location / LateralityCollection Method / Volume Collection TimeReceived Time10/14/2024 4:51 PM EDT Narrative 10/14/2024 4:52 PM EDT EXAMINATION: XR KNEE LEFT AP+LAT 2 VIEWSPRO/LT 10/14/2024 09:20 AM CLINICAL HISTORY: ARTHRITIS ASSOCIATED DIAGNOSIS: Arthritis ORDERING PROVIDER: CHUCK OQUENDO TECHNOLOGISTS NOTE: COMPARISON: None FINDINGS: IMPRESSION: Status post left knee arthroplasty. No signs of loosening. No acute fracture or dislocation. Small joint effusion. Left knee MACRO: None Procedure Note Luis Fernando Means DO - 10/14/2024 EXAMINATION: XR KNEE LEFT AP+LAT 2 VIEWSPRO/LT 10/14/2024 09:20 AM CLINICAL HISTORY: ARTHRITIS ASSOCIATED DIAGNOSIS: Arthritis ORDERING PROVIDER: CHUCK OQUENDO TECHNOLOGISTS NOTE: COMPARISON: None FINDINGS: IMPRESSION: Status post left knee arthroplasty. No signs of loosening. No acutefracture or dislocation. Small joint effusion. Left knee MACRO: None Authorizing ProviderResult TypeResult StatusDavid Gray [facility] DIAGNOSTIC X-RAYFinal Result from Last [address] [place] [address]
--- OUTSIDE RECORDS SUMMARY | 2025-01-07 07:15 | XMS_ITS | CCD ---
Author Organization [facility] Care Team Providers Care [employer] Tester Name Role Phone MACI, DR CAPUTO Admitting Unavailable LXU, DR CAPUTO Attending Unavailable BALL, DR ROCHE Primary Care Unavailable LUX, DR CAPUTO Consulting Unavailable CÉSAR, ALEKSANDAR Consulting [...] ELODIA Consulting Unavailable IKE, HALLEY Consulting Unavailable LUX, DR CAPUTO Admitting Unavailable LUX, DR CAPUTO Attending Unavailable BALL, DR ROCHE Primary Care Unavailable LUX, DR CAPUTO Consulting Unavailable THOMAS, ANGELITA Consulting Unavailable NEFCY, DANAY Consulting Unavailable LUX, DR CAPUTO Admitting Unavailable LUX, DR CAPUTO Attending Unavailable BALL, DR ROCHE Primary Care Unavailable BALL, DR ROCHE Referring Unavailable LUX, DR CAPUTO Consulting Unavailable Chiki, Antoni Unavailable DO Antoni Monet Primary Care Provider DO Tr Garcia Admit Provider [phone] MD Olga Bailon Attending Provider Rikki MARTEL, Christen Unavailable Unavailable Antoni Monet DO Primary Care Provider Ar Singleton DO Unavailable [phone] Antoni Monet DO Primary Care Provider Tr Garcia DOit Provider Uvaldo BLAKE, Olga Attending Provider [phone] Antoni Monet DO Attending Provider [phone] Ar Singleton DO Unavailable [phone] LUX, Patito R Attending Unavailable LUX, Patito R Admitting Unavailable LUX, Patito R Attending Unavailable Unavailable Primary Care Provider Unavailabl e JERE, CHUCK ACOSTA Referring Unavailabl e PROVIDER, UNKNOWN Attending Unavailable PROVIDER, UNKNOWN Admitting Unavailable LUX, Patito R Attending Unavailable LUX, Patito R Admitting Unavailable LUX, Patito R Attending Unavailable Antoni Monet DO Primary Care Provider [phone] Antoni Monet DO Attending Provider Carri Shoemaker MD Emergency Provider Damaso BLAKE, Robert Admit Provider Robert Petit MD Other Provider Mane Sommer MD Attending Provider [phone] Mane Sommer MD Other Provider Daryl HERNANDEZ, Adelso Vallecillo Other Provider Sol Suarez MD Other Provider Christen Dumont DO Other Provider Moncho Stein APRN Other Provider Jagruti Oro RN Other Provider Unavailable Otoniel Singleton DO Other Provider [phone] Samy Rust MD Other Provider [phone] Minnie Raygoza MD Other Provider [phone] Yissel Verma APRN Other Provider Janneth Gordon MD Other Provider Trevor [facility]-, Brittney Manley Other Provider [phone] Antoni Monet DO Primary Care Provider Christen Dunbar CMA Attending Provider Unavaila ble Mavis Gonzalez APRN Emergency Provider [phone] Elvis Wilkinson DO Admit Provider Elvis Wilkinson DO Attending Provider AR SINGLETON Attending Unavailable ANTONI MONET Primary Care Unavailable AR SINGLETON Attending Unavailable AR SINGLETON Referring Unavailable ANTONI MONET Primary Care Unavailable Michelle Aguayo MD Attending Provider [phone] Antoni Monet DO Attending Provider Antoni Monet Admitting Unavailable Antoni Monet Primary Care Unavailable Antoni Monet Attending Unavailable Ann Torres Attending Unavailable Mane Sommer Consulting Unavailable Chiki, Antoni Primary Care Unavailable PetitRobert saavedra Admitting Unavailable Adelso Brito Consulting Unavailable Asaad Imad Consulting Unavailable Christen Dumont Consulting Unavailable Moncho Stein Consulting Unavailable Mischler, Jagruti Consulting Unavailable Jagruti Oro Consulting Unavailable Otoniel Singleton Consulting Unavailable Barrera, Samy Consulting Unavailable Minnie Raygoza Consulting Unavailable Yissel Verma Consulting Unavailable Janneth Gordon Consulting Unavailable Brittney Murray Consulting Unavailable Chiki, Antoni Primary Care Unavailable Elvis Wilkinson Admitting Unavailable Meseretchler, Jagruti Consulting Unavailable Michelle Aguayo Attending Unavailable Henoker, Jagruti Consulting Unavailable Otoniel Singleton Consulting Unavailable Rust, Pablo Consulting Unavailable Trabouljoyi, Kinahaf Consulting Unavailable Yissel Verma Consulting Unavailable Janneth Gordon Consulting Unavailable Brittney Murray Consulting Unavailable Allergies Allergy ClassificationReported Allergen(s)Allergy TypeDate of OnsetReaction(s) Facility (2 sources)patient allergy list reviewed by nurse or physiciaPropensity to adverse suundtowv50-96-5763Mywrymi:[facility] Other (2 sources)No Known Medication Allergies; Translations: [No Known Medication Allergies]Propensity to adverse reactions (disorder)[facility] Medications Current Medications MedicationDrug Class(es)DatesSig (Normalized)Sig (Original)Apple Cider Vinegar (1 source)take 1 tablet by mouth twice dailyAPPLE CIDER VINEGAR ORAL Take 1 tablet by mouth 2 times a day. Activeascorbic acid 500 mg oral tablet (1 source)Vitamin Ctake 1 tablet by mouth once dailyascorbic acid (Vitamin C) 500 mg tablet Take 1 tablet (500 mg) by mouth once daily. Activeatorvastatin 80 mg oral tablet (20 sources)HMG-CoA Reductase InhibitorStart: 12-28-2023 End: 79-10-4293reaw 1 tablet by mouth once daily in the eveningAtorvastatin 80 mg Tablet Active 80 MG PO Every evening 90 90 December 28, 2023 12:00am Complies with drug therapyStart: 05-17-2023 End: 96-64-1874bjlr 1 tablet by mouth once dailyAtorvastatin 10 mg tablet Discontinued 10 MG PO Daily 90 90 October 31, 2023 8:19pm December 28, 2023 11:58amStart: 28-15-2006upph 1 tablet by mouth once daily in the evening Atorvastatin Calcium 10 MG 1 tablet Orally Once a day, in evening for 90 days Feb, Activecholecalciferol 0.025 mg oral tablet (1 source)Vitamin Dtake 1 tablet by mouth once dailycholecalciferol (Vitamin D3) 25 mcg (1,000 units) tablet Take 1 tablet (25 mcg) by mouth once daily. Active clopidogrel 75 mg oral tablet (5 sources)P2Y12 Platelet InhibitorStart: 10-81-6911zefo 1 tablet by mouth once dailyClopidogrel (Plavix) 75 mg tablet Active 75 MG PO Daily December 03, 2024 12:00am Complieswith drug therapyempagliflozin 12.5 mg / metFORMIN hydrochloride 1000 mg oral tablet (1 source)Biguanide, Sodium-Glucose Cotransporter 2 InhibitorStart: 12-24-2024 take 1 tablet by mouth twice dailyEmpagliflozin-Metformin 12.5-1,000 mg tablet Active 1 TAB PO Twice daily December 24, 2024 12:00amComplies with drug therapy gabapentin 100 mg oral capsule (6 sources)Anti-epileptic AgentStart: 75-79-8705quyj 1 capsule by mouth once dailyGabapentin 100 mg capsule Active 100 MG PO Daily November 29, 2024 12:00am Complies with drug therapyglimepiride 2 mg oral tablet (13 sources)SulfonylureaStart: 18-43-3331lxgd 1 tablet by mouth once daily at breakfastGlimepiride 2 mg tablet Active 2 MG PO Every morning September 03, 2024 9:12am administer with breakfast Complies with drug therapyStart: 05-24-2024 End: 38-76-5262ybxi 1 tablet by mouth once daily at breakfastGlimepiride 1 mg tablet Discontinued 1 MG PO Every morning May 24, 2024 12:00am September 03, 2024 9:14am administer with breakfastInhalational Spacing Device (Aerochamber Mini) spacer (8 sources)Start: 98-96-2546Ldbmcyvytigl Spacing Device (Aerochamber Mini) spacer Active 0 .ROUTE .MEDSUPPLY October 22, 2023 11:00pm Use with MDIStart: 81-17-4829Yfilrzfrzekb Spacing Device (Aerochamber Mini) spacer Active 0 .ROUTE .MEDSUPPLY October 23, 2023 12:00am Use with MDIlisinopril 5 mg oral tablet (20 sources)Angiotensin Converting Enzyme InhibitorStart: 94-84-8010csog 1 tablet by mouth once dailyLisinopril 5 mg tablet Active 5 MG PO Daily December 03, 2024 2:09pm Complies with drug therapyStart: 09-24-2024 End: 80-15-6845vpmt 1 tablet by mouth once dailyLisinopril 20 mg tablet Discontinued 0 .ROUTE .COMPLEX September 24, 2024 12:10am December 03, 2024 2:09pm TAKE 1 TABLET BY MOUTH DAILYStart: 10-18-2023 End: 73-92-7275acua 1 tablet by mouth once dailyLisinopril 20 mg tablet Discontinued 20 MG PO Daily October 18, 2023 1:40pm September 24, 2024 12 :10amStart: 08-11-2023 End: 90-79-8762avyg 1 tablet by mouth once dailyLisinopril 20 mg tablet Discontinued 0 .ROUTE .COMPLEX August 11, 2023 1:15pm October 18, 2023 1:41pm TAKE 1 TABLET BY MOUTH DAILYStart: 05-17-2023 End: 11-92-6120ajzv 1 tablet by mouth once dailyLisinopril 20 mg tablet Discontinued 20 MG PO Daily May 17, 2023 1:00am August 11, 2023 1:15pm Magnesium (6 sources)Start: 49-68-7562zldc 2 tablets by mouth once dailyMagnesium 200 mg tablet Active 400 MG PO Daily November 29, 2024 12:00am Complies with drug therapyStart: 30-99-5173dsbg 2 tablets by mouth once dailyMultivitamin (Daily Multi-Vitamin) tablet (6 sources)Start: 05-87-5734tgmn 1 tablet by mouth once dailyMultivitamin (Daily Multi-Vitamin) tablet Active 1 TAB PO Daily November 29, 2024 12:00am Complie s with drug therapyStart: 21-65-7619smiq 1 tablet by mouth once daily multivitamin tablet (1 source)take 1 tablet by mouth once dailymultivitamin tablet Take 1 tablet by mouth once daily. Activenitroglycerin 0.4 mg sublingual tablet (10 sources)Nitrate VasodilatorStart: 60-41-0459Zwllrdvzrdgpr 0.4 mg Tablet, Sublingual Active 0.4 MG SUBLINGUAL Q5M as needed for Chest Pain 2023 12:00am Complies with drug therapyOmega 5-Dva-Xww-Fish Oil (Fish Oil) 1,000 (120-180) mg capsule (6 sources)Start: 40-87-7659zoon 1 capsule by mouth twice dailyOmega 9-Adb-Obe-Fish Oil (Fish Oil) 1,000 (120-180) mg capsule Active 1 CAP PO Twice daily November 29, 2024 12:00am Complies with drug therapyStart: 11-29-2024 take 1 capsule by mouth twice dailyOne Touch Glucometer (5 sources)One Touch Glucometer Use to test home BS transcutaneous Use to test home BS qd for 365 days Activepantoprazole 40 mg delayed release oral tablet (5 sources)Proton Pump InhibitorStart: 57-68-0203jmqr 1 tablet by mouth twice daily, then take 1 tablet by mouth once dailyPantoprazole (Protonix) 40 mg tablet,delayed release (DR/EC) Active 40 MG PO As Directed December 03, 2024 12:00am 40 mg twice daily for 8 weeks, then 40 mg daily for prophylaxis given ongoing need for antiplatelet therapy Complies with drug therapy Semaglutide (Rybelsus) 3 mg tablet (1 source)Start: 26-23-0551uquh 1 tablet by mouth once dailySemaglutide (Rybelsus) 3 mg tablet Active 3 MG PO Daily March 21, 2024 12:00am vitamin b12 1 mg oral tablet (1 source)Vitamin M45fuvc 1 tablet by mouth once dailycyanocobalamin (Vitamin B- 12) 1,000 mcg tablet Take 1 tablet (1,000 mcg) by mouth once daily. Active Completed/Discontinued Medications MedicationDrug Class(es)DatesSig (Normalized)Sig (Original)[id number] 200 actuat albuterol 0.09 mg/actuat metered dose inhaler (8 sources)beta2-Adrenergic AgonistStart: 10-23-2023 End: 95-90-4107phlm 1 puff(s) by inhalation every six hours as needed for wheezingAlbuterol Sulfate 90 mcg/actuation HFA aerosol inhaler Discontinued 2 PUFF INHALATION Every 6 hoursas needed for shortness of breath or wheezing 8.5 October 23, 2023 12:00am November 2956:16amamoxicillin 500 mg / clavulanate 125 mg oral tablet (6 sources)Penicillin-class AntibacterialStart: 11-29-2024 End: 72-34-8805txkc 1 tablet by mouth three times dailyAmoxicillin-Pot Clavulanate 500-125 mg tablet Discontinued 1 TAB PO Three times daily November 29, 2024 12:00am December 03, 2024 2:10pmaspirin 81 mg delayed release oral tablet (10 sources)Platelet Aggregation Inhibitor, Nonsteroidal Anti-inflammatory Drug Start: 12-28-2023 End: 10-73-0019mdmm 1 tablet by mouth once dailyAspirin 81 mg Tablet,Delayed Release (Dr/Ec) Discontinued 81 MG PO Daily December 28, 2023 12:00am December 03, 2024 2:10pmcarvedilol 3.125 mg oral tablet (17 sources)alpha-Adrenergic Santa, beta-Adrenergic BlockerStart: 01-05-2024 End: 44-05-0025zffg 1 tablet by mouth twice daily at mealtimeCarvedilol 3.125 mg tablet Discontinued 3.125 MG PO Twice daily with meals 180 January 05, 2024 11:07am November 29, 2024 6:16amStart: 12-28-2023 End: 12-77-0541ujco 1 tablet by mouth twice daily at mealtimeCarvedilol 6.25 mg Tablet Discontinued 6.25 MG PO Twice daily with meals 180 90 December 28, 2023 12:00am January 05, 2024 11:08amcinnamon bark 500 mg oral capsule (6 sources)Start: 11-29-2024 End: 70-69-4096pjkk 1 capsule by mouth once dailyCinnamon Bark (Cinnamon) 500 mg capsule Discontinued 500 MG PO Daily November 29, 2024 12:00am December 07, 2024 1:14pmdapagliflozin 10 mg oral tablet (16 sources)Sodium-Glucose Cotransporter 2 InhibitorStart: 01-11-2024 End: 91-85-2726uzyi 1 tablet by mouth once dailyDapagliflozin Propanediol (Farxiga) 5 mg tablet Discontinued 5 MG PO Daily January 102:00am January 12, 2024 12:32pmStart: 01-10-2024 End: 58-00-6758cgpx 1 tablet by mouth once dailyDapagliflozin Propanediol 10 mg tablet Discontinued 10 MG PO Daily January 12, 2024 12:31pmSept2024 6:16amempagliflozin 25 mg oral tablet (7 sources)Sodium-Glucose Cotransporter 2 InhibitorStart: 11-29-2024 End: 64-10-9169cfui 1 tablet by mouth once dailyEmpagliflozin 25 mg tablet Discontinued 12.5 MG PO Daily November 29, 2024 12:00am December 8:38amStart: 07-10-2024 End: 00-64-1235bvdj 1 tablet by mouth once dailyempagliflozin (Jardiance) 10 mg tablet Indications: ASHD (arteriosclerotic heart disease) , NSTEMI (non-ST elevated myocardial infarction) (Multi) , History of percutaneous coronary intervention , Diabetes mellitus type II, non insulin dependent (Multi) Take 1 tablet (10 mg) by mouth once daily. 90tablet 3 07/10/2024 07/10/2025 Active Garlic (6 sources)Non-Standardized Food Allergenic ExtractStart: 11-29-2024 End: 05-76-8254othl 1 capsule by mouth twice dailyGarlic (Garlic Oil) 1,000 mg capsule Discontinued 1000 MG PO Twice daily November 29, 2024 12:00am December 07, 2024 1:14pmStart: 54-33-3034wmqs 1 capsule by mouth twice daily Garlic (Garlic Oil) 1,000 mg capsule Active 1000 MG PO Twice daily November 29, 2024 12:00am Complies with drug therapyStart: 29-19-7638mfvt 1 capsule by mouth twice dailylinagliptin 5 mg oral tablet (7 sources)Dipeptidyl Peptidase 4 InhibitorStart: 01-26-2024 End: 26-44-2068yhgq 1 tablet by mouth once dailyLinagliptin (Tradjenta) 5 mg tablet Discontinued 5 MG PO Daily January 26, 2024 1:00am February 21, 2024 10:13ammetFORMIN hydrochloride 1000 mg oral tablet (20 sources)BiguanideStart: 06-07-2024 End: 54-35-5345jjrb 1 tablet by mouth once dailyMetformin 1,000 mg tablet Discontinued 0 .ROUTE .COMPLEX June 07, 2024 6:52am December 24, 2024 8:38am TAKE 1 TABLET BY MOUTH DAILYStart: 01-25-2024 End: 62-49-0129lmdh 1 tablet by mouth onceMetformin 1,000 mg tablet Discontinued 1000 MG PO Once January 25, 2024 3:31pm May 6:52amStart: 07-28-2023 End: 21-94-8688ahlj 1 tablet by mouth once dailyMetformin 1,000 mg tablet Discontinued 0 .ROUTE .COMPLEX July 28, 2023 1:17pm January 25, 2024 3:32pm TAKE 1 TABLET BY MOUTH DAILYStart: 63-43-8748ciss 1 tablet by mouth once dailyMetformin Active 0 .ROUTE .COMPLEX July 28, 2023 1:17pm On Hold: Resume on 12/29/23. TAKE 1 TABLET BY MOUTH DAILYStart: 05-17-2023 End: 76-67-3665lxin 1 tablet by mouth once dailyMetformin 1,000 mg tablet Discontinued 1000 MG PO Daily May 17, 2023 1:00am July 28, 2023 1:17pmtake 1 tablet by mouth twice dailymetFORMIN (Glucophage) 1,000 mg tablet Take 1 tablet (1,000 mg) by mouth 2 times daily (morning andlate afternoon). Activetake 1 tablet by mouth once dailymetFORMIN HCl 1000 MG TAKE 1 TABLET BY MOUTH DAILY ActiveSemaglutide (14 sources)Start: 03-21-2024 End: 03-24-5353Uhlpakiedrb (Ozempic) 0.25 mg or 0.5 mg (2 mg/3 mL) pen injector Discontinued 0.5 MG SUBCUT every week 3 March 21, 2024 10:51am March 21, 2024 2:46pm for 4 weeksStart: 03-21-2024 End: 85-42-7892Omczaqwggtk (Ozempic) 0.25 mg or 0.5 mg (2 mg/3 mL) pen injector Discontinued 0.5 MG SUBCUT every week 3 March 21, 2024 9:51am March 21, 2024 1:46pm for 4 weeksStart: 02-21-2024 End: 17-25-1537Saximstqexa (Ozempic) 0.25 mg or 0.5 mg (2 mg/3 mL) pen injector Discontinued 0.25 MG SUBCUT every week 1.472 February 21, 2024 1:00am March 21, 2024 10:51am for 4 weeksStart: 02-21-2024 End: 62-26-2185Ksqacumpeox (Ozempic) 0.25 mg or 0.5 mg (2 mg/3 mL) pen injector Discontinued 0.25 MG SUBCUT every week 1.472 February 21, 2024 12:00am March 21, 2024 9:51am for 4 weekssemaglutide 3 mg oral tablet (6 sources)Start: 03-21-2024 End: 95-33-9785cwqm 1 tablet by mouth once dailySemaglutide (Rybelsus) 3 mg tablet Discontinued 3 MG PO Daily 30 March 21, 2024 1:00am May 24, 2024 9:12amticagrelor 90 mg oral tablet (11 sources)Start: 12-28-2023 End: 37-29-1706dwof 1 tablet by mouth twice dailyTicagrelor (Brilinta) 90 mg Tablet Discontinued 90 MG PO Twice daily 180 90 December 28, 2023 12:00am December 03, 2024 2:10pm Problems Active Problems Problem ClassificationProblemDateDocumented DateEpisodic/ChronicAcute myocardial infarction (18 sources)Myocardial infarction; Translations: [Non-ST elevation (NSTEMI) myocardial infarction]Onset: 624562-87-0238TzmjrwhFkaez posthemorrhagic anemia (11 sources)Acute posthemorrhagic anemia; Translations: [Acute posthemorrhagic anemia]Onset: 718266-71-7078JinipmarNzempf (8 sources)Asthma; Translations: [Unspecified asthma, uncomplicated]10-23-2023 ChronicBiliary tract disease (10 sources)Cholelithiasis without obstruction; Translations: [Calculus of gallbladder without cholecystitis without obstruction]Onset: 44-11-7673Pnuobdsg Cancer of bladder (20 sources)Malignant neoplasm of bladder, unspecified; 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]Onset: 65-50-4761UlaazthMtfzzza on above:2017 w/ recurrenceCardiac dysrhythmias (11 sources)Drug-induced bradycardia; Translations: [Bradycardia, unspecified] 47-10-3829EscpsajkFooxync kidney disease (4 sources)Chronic kidney disease stage 3; Translations: [Chronic kidney disease, stage 3 unspecified]Onset: 401213-30-4814GkprrhuDgplogc kidney disease (2 sources)Chronic kidney disease; Translations: [Chronic kidney disease, stage 3 unspecified]Onset: 95-16-5358Wkaccek obstructive pulmonary disease and bronchiectasis (16 sources)Mucopurulent chronic bronchitis; Translations: [Mucopurulent chronic bronchitis]06-55-3715RushvebYshgicoh atherosclerosis and other heart disease (20 sources)Exercise-induced angina; Translations: [Exertional angina]Onset: 172945-21-0776RnviepxLxshmvr on above:LHC: LCx PCI/stent, LAD PCI/stent, RCA PCI/stent - oronary atherosclerosis and other heart disease (13 sources)History of percutaneous coronary intervention; Translations: [Coronary angioplasty status]Onset: 890138-91-2918CcmgrxqsMeptsioeby and other anemia (14 sources)Anemia; Translations: [Anemia, unspecified]34-17-6255Kcztwgyh Deficiency and other anemia (1 source)Anemia, unspecified; Translations: [Anemia, unspecified]Onset: 21-86-3349ThoffzdoMekigxng mellitus with complications (20 sources)Type 2 diabetes mellitus with hyperglycemia; Translations: [Type 2 diabetes mellitus]Onset: 28-63-6662IusuclkEkfcxdgc mellitus without complication (20 sources)Type 2 diabetes mellitus without complications; Translations: [Type 2 diabetes mellitus without complication]Onset: hronic Diseases of mouth; excluding dental (2 sources)Hypertrophy of tongue papillae; Translations: [Hypertrophy of tongue papillae]EpisodicDisorders of lipid metabolism (20 sources)Hypercholesterolemia; Translations: [Pure hypercholesterolemia, unspecified]Onset: 19-06-7228XtmkqlvE Codes: Adverse effects of medical drugs (5 sources)Adverse effect of anticoagulant antagonists, vitamin K and other coagulants, initial encounter; Translations: [Adverse effect of antiplatelet agent]44-53-8371YwizzszuYohprvsth hypertension (20 sources)Essential (primary) hypertension; Translations: [Essential hypertension]Onset: 58-29-4811NospabxUtrenrufg and duodenitis (12 sources)Gastroduodenitis; Translations: [Gastroduodenitis, unspecified, with bleeding]Onset: 712228-99-3698TosfhqauLxzkjxzixsxevfzy hemorrhage (20 sources)Gastrointestinal hemorrhage; Translations: [Gastrointestinal hemorrhage, unspecified]Onset: 446879-24-4852IpyjvqmoDxowsfmraum of prostate (5 sources)Benign prostatic hyperplasia with lower urinary tract symptoms; Translations: [Benign prostatic hyperplasia without lower urinary tract symptoms]Onset: 72-66-3500BkgbndbCguicnpvitlj with complications and secondary hypertension (1 source)Benign hypertensive renal disease; Translations: [Hypertensive chronic kidney disease, benign, withchronic kidney disease stage I through stage IV, or unspecified]Onset: 11-96-2948LtynxulSewyewopk of skin (4 sources)Malignant melanoma of skin of face; Translations: [Malignant melanoma of cheek (external)]Onset: 39-18-6144XsvvdtvFmkhvkyiend chest pain (13 sources)Other chest pain; Translations: [Chest pain, unspecified]Onset: 12-05-2024 Resolved: 466687-73-9065ViyvpjolIrjpqtrfmav deficiencies (3 sources)Vitamin D deficiency, unspecified; Translations: [Vitamin D deficiency]Onset: 53-76-5412AwlsyobNnpsjkrxywvuqt (18 sources)Osteoarthritis of right foot; Translations: [Primary osteoarthritis, right ankle and foot]Onset: 28-61-3972SavrttvXtmsd aftercare (2 sources)Other jail (current) drug therapy; Translations: [[facility] CURRENT DRUG THERAPY]Onset: 75-12-8152GahzlyjzIwbpp aftercare (13 sources)Long-term current use of drug therapy; Translations: [Other jail (current) drug therapy]33-75-4926AzkbufcfZrwbi aftercare (1 source)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 (current) use of antithrombotics/antiplatelets; Translations: [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 (current) use ofantithrombotics/antiplatelets]Onset: 61-84-9939DgdrykhlMsfot and unspecified benign neoplasm (6 sources)Adenomatous polyp of colon ; Translations: [Benign neoplasm of descending colon]EpisodicOther and unspecified benign neoplasm (1 source)Personal history of colonic polyps; Translations: [Personal history of colonic polyps]EpisodicOther and unspecified benign neoplasm (2 sources)Benign neoplasm of colon; Translations: [Benign neoplasm of colon] EpisodicOther and unspecified benign neoplasm (1 source)History of polyp of colon; Translations: [Personal history of colonic polyps]EpisodicOther ear and sense organ disorders (8 sources)Sensorineural hearing loss; Translations: [Unspecified sensorineural hearing loss]02-03-5333PgalnntSehla ear and sense organ disorders (5 sources)Impacted cerumen; Translations: [Impacted cerumen, bilateral]Onset: 04-06-2016 Resolved: 344802-78-1086CnxhgnixRdjvs ear and sense organ disorders (1 source)Impacted cerumen of bilateral ears; Translations: [Impacted cerumen, bilateral]27-75-8902WhxxkedkXmzku injuries and conditions due to external causes (1 source)History of falling; Translations: [History of falling]EpisodicOther injuries and conditions due to external causes (1 source)History of fall; Translations: [History of falling]EpisodicOther lower respiratory disease (4 sources)Cough; Translations: [Cough]Onset: 353169-02-6186EuahzzoiSdcgw lower respiratory disease (10 sources)Dyspnea; Translations: [Shortness of breath] Resolved: 295848-19-9894NcpxyzhpOeswo lower respiratory disease (2 sources)Dyspnea, unspecified; Translations: [Other respiratory abnormalities] Onset: 450963-99-6772FiexfhslUbykk non-epithelial cancer of skin (5 sources)Personal history of other malignant neoplasm of skin; Translations: [Basal cell carcinoma of skin, unspecified]Onset: 10-44-0261WielpdesZkcgk non- traumatic joint disorders (1 source)Lower limb joint arthritis; Translations: [Osteoarthrosis, unspecified whether generalized or localized, lower leg]Onset: 21-68-4574QkheqbqOlubt nutritional; endocrine; and metabolic disorders (3 sources)Obesity, unspecified; Translations: [Obesity, unspecified]01-05-2024 ChronicOther nutritional; endocrine; and metabolic disorders (12 sources)Obesity; Translations: [Obesity, unspecified]62-93-6348NywrvggUsnyj nutritional; endocrine; and metabolic disorders (2 sources)Body mass index 30+ - obesity; Translations: [Body mass index (BMI) 30.0-30.9, adult]Onset: 431446-78-2069BbitroiBwuqh nutritional; endocrine; and metabolic disorders (2 sources)Body mass index (BMI) 30.0-30.9, adult; Translations: [Body mass index (BMI) 30.0-30.9, adult]Onset: 53-61-7962BootxbkYhgth screening for suspected conditions (not mental disorders or infectious disease) (20 sources)Encounter for screening for malignant neoplasm of prostate; Translations: [Elevated prostate specific antigen [PSA]]Onset: 06-11-2018 EpisodicOther upper respiratory infections (2 sources)Chronic maxillary sinusitis; Translations: [Chronic maxillary sinusitis]Onset: 45-06-2365CmjbsibBpdaancc codes; unclassified (1 source)Family history of malignant neoplasm of digestive organs; Translations: [Family history of malignant neoplasm of digestive organs]Episodic Residual codes; unclassified (1 source)Family history of malignant neoplasm of gastrointestinal tract; Translations: [Family history of malignant neoplasm of digestive organs]Episodic Screening and history of mental health and substance abuse codes (1 source)Encounter for screening for depression; Translations: [Encounter for screening for depression]EpisodicSpondylosis; intervertebral disc disorders; other back problems (8 sources)Spondylosis without myelopathy or radiculopathy, cervical region; Translations: [Cervical spondylosis without myelopathy]Onset: 03-19-2014 00-55-9428HhymgqvGpsiapumh-related disorders (20 sources)Nicotine dependence, cigarettes, uncomplicated; Translations: [Tobacco dependence in remission]Onset: 80-68-9292LbqpwxsZkjeoqpwxdlo (1 source)CONTACT W/AND (SUSP) EXPOS COVID-19; Translations: [CONTACT W/AND (SUSP) EXPOS COVID-19]Onset: 73-49-2202Qnomjvlemvor (1 source)Encounter for preprocedural respiratory examination; Translations: [Encounter for preprocedural respiratory examination]Onset: 11-08-2013 Unclassified (1 source)Low back pain, unspecified; Translations: [Low back pain, unspecified] Onset: 60-98-9279Ytuwwpkcrkxr (1 source)Identification of preoperative respiratory status; Translations: [Encounter for preprocedural respiratory examination]Onset: 11-08-2013 Unclassified (5 sources)You have been scheduled for a follow up appointment for the following date and time, please call to reschedule if needed.Unclassified (5 sources)The office will contact you with pathology results from your EGD. If you have any questions, please call the office.Unclassified (3 sources)Follow-up with your Primary Care Provider, call office to reschedule if needed.Unclassified (3 sources)A [facility] screening has identified you as FRAIL or AT RISK FOR FRAILTY. This puts you at a higher risk for infection, illness, falls, and other injuries. Here are four ways to help you reduce your risk of frailty: 1. IDENTIFY EARLY SIGNS OF FRAILTY Discuss contributing factors and concerns with your doctor 2. BE ACTIVE Walking and light strengthening exercises will help reduce weakness 3. EAT WELL Aim for three healthy meals a day that are high in protein 4. THINK POSITIVE Keep your mind active by being sociable and continuing to learn References: Stay Strong: Four Ways to Beat the Frailty Risk [email or web address]-ilb-vscoxveset/suvl-qucxdz-zvun- nhso-yv-xhja-the-josé miguel borgeskqnh-ixeb70-90mech74-75-2218Ciydonj tract infections (1 source)Other chronic cystitis without hematuria; Translations: [OTH CHRONIC CYSTITIS W/O HEMATURIA]Onset: 89-24-1697Lxeaiwf Past or Other Problems Problem ClassificationProblemDateDocumented DateEpisodic/ChronicAbdominal pain (4 sources)Right lower quadrant pain; Translations: [RIGHT LOWER QUADRANT PAIN] Onset: 96-70-1315BjhplvqrNesxjllwn infection; unspecified site (1 source)Bacterial infectious disease; Translations: [Bacterial infection, unspecified, in conditions classified elsewhere and of unspecified site]Onset: 98-67-5961ZtpqrwqdBrxpte of bladder (1 source)Personal history of malignant neoplasm of bladder; Translations: [PERSONAL HX MALIG NEOPLASM BLADDER]Onset: 67-24-7817NjexliavJmqjamkj mellitus with complications (2 sources)Diabetes mellitus with complications; Translations: [Diabetes mellitus without mention of complication, type II or unspecified type, not stated as uncontrolled]Onset: 78-31-8448Qgrtipyu mellitus without complication (2 sources)Hyperglycemia, unspecified; Translations: [Hyperglycemia]Onset: 99-92-8817RviftarhOvisfnqqy hypertension (1 source)Essential hypertension; Translations: [Essential hypertension, benign] Onset: 54-59-5828Vdilcwmgfvtzn symptoms and ill-defined conditions (1 source)Hematuria, unspecified; Translations: [HEMATURIA UNSPECIFIED]Onset: 17-52-6333SljgddqzOnsybmy and fatigue (2 sources)Other malaise and fatigue; Translations: [Malaise and fatigue]Onset: 21-24-1326IfzxtjkuIupghauzs of unspecified nature or uncertain behavior (4 sources)Neoplasm of unspecified behavior of bladder; Translations: [NEOPLASM UNS BEHAVIOR OF BLADDER]Onset: 89-01-7335GstrljerFncj wounds of extremities (4 sources)Laceration with foreign body of left index finger with damage to nail, subsequent encounter; Translations: [Laceration with foreign body of left index finger with damage to nail, initial encounter]Onset: 64-52-6146Lkgfwfdl Other aftercare (1 source)jail (current) use of oral hypoglycemic drugs; Translations: [[employer] USE ORAL HYPOGLYCEMIC DX]Onset: 73-71-7257BumjntvoRrqfb and unspecified benign neoplasm (3 sources)Benign neoplasm of descending colon; Translations: [Benign neoplasm of descending colon] Resolved: 75-97-6763OzdgcwzjXvsfd and unspecified benign neoplasm (1 source)Benign neoplasm of descending colon; Translations: [Benign neoplasm of descending colon] Resolved: 82-23-1805ZifjxdxuHopvr connective tissue disease (1 source)Neuralgia and neuritis, unspecified; Translations: [Neuralgia and neuritis, unspecified] Resolved: 52-49-2236TrzueamcLtqpp connective tissue disease (1 source)Neuralgia; Translations: [Neuralgia and neuritis, unspecified] Resolved: 74-18-2274NgqncbauXgxhv diseases of kidney and ureters (1 source)Crossing vessel and stricture of ureter without hydronephrosis; Translations: [CROSSING VES STRICT URETER W/O HN]Onset: 99-96-7705HperdklgPquly ear and sense organ disorders (2 sources)Impacted cerumen, bilateral; Translations: [Impacted cerumen, bilateral] Resolved: 39-46-2032QxdyqkqnCkdsm ear and sense organ disorders (1 source)Acute reactive otitis externa, bilateral; Translations: [Acute reactive otitis externa, bilateral] Resolved: 16-67-5670DjjbvejdZhkbq ear and sense organ disorders (1 source)Acute contact otitis externa; Translations: [Acute reactive otitis externa, bilateral] Resolved: 29-20-7935DshpiowsMxgyi infections; including parasitic (1 source)Personal history of other infectious and parasitic diseases; Translations: [PERSONAL HX OTH INF ANDPARASITIC DZ]Onset: 78-43-9640Taftqgvz Other lower respiratory disease (1 source)Cough; Translations: [Cough]Onset: 10-34-5253JayzvagjVkspb lower respiratory disease (1 source)Shortness of breath; Translations: [Shortness of breath] Resolved: 94-05-8882UctfcjgnPxove lower respiratory disease (1 source)Other forms of dyspnea; Translations: [Other forms of dyspnea]Onset: 02-91-7917HlddafyfLuxyi nervous system disorders (1 source)Paresthesia of skin; Translations: [Paresthesia of skin]Onset: 88-26-5206RvmvlbrkDfnjv nervous system disorders (1 source)Paresthesia; Translations: [Paresthesia of skin]Onset: 03-19-2014 EpisodicOther nutritional; endocrine; and metabolic disorders (1 source)Overweight; Translations: [Overweight] Resolved: 43-87-5496IcqdazrhWsbpg nutritional; endocrine; and metabolic disorders (1 source)Overweight; Translations: [Overweight] Resolved: 20-47-9387IqqdvjnzBqwmk nutritional; endocrine; and metabolic disorders (2 sources)Body mass index 25-29 - overweight; Translations: [Body mass index 28.0-28.9, adult]Onset: 25-28-5817YhbwgniwBbogr nutritional; endocrine; and metabolic disorders (4 sources)Overweight in adulthood with body mass index of 25 or more but less than 30; Translations: [Body mass index (BMI) 29.0-29.9, adult]Onset: 01-10-2024 Resolved: 892568-95-7521PbzwfcskQxjaw nutritional; endocrine; and metabolic disorders (1 source)Body mass index (BMI) 29.0-29.9, adult; Translations: [Body mass index (BMI) 29.0-29.9, adult]Onset: 62-08-4206AesgjzogWrzcondp codes; unclassified (1 source)Tobacco use; Translations: [Tobacco use]Onset: 58-11-9324Rahvxwbl Residual codes; unclassified (2 sources)Tobacco user; Translations: [Tobacco use]Onset: 98-51-1981Tpbibjmh Spondylosis; intervertebral disc disorders; other back problems (5 sources)Radiculopathy, cervical region; Translations: [Low back pain]Onset: 920425-90-5163DuvyagsmSstwmkd and strains (4 sources)Strain of muscle, fascia and tendon of lower back, subsequent encounter; Translations: [Strain of muscle, fascia and tendon of lower back, initial encounter]Onset: 63-98-6306XpzodqpgRnpwslbqizcq (1 source)Osteoarthrosis, unspecified whether generalized or localized, lower leg; Translations: [Osteoarthrosis, unspecified whether generalized or localized, lower leg]Onset: 19-73-0264Rrbrluxvaipo (1 source)Bacterial infection, unspecified, in conditions classified elsewhere and of unspecified site; Translations: [Bacterial infection, unspecified, in conditions classified elsewhere and of unspecified site]Onset: 04-06-2016 Unclassified (1 source)Melanoma of skin, site unspecified; Translations: [Melanoma of skin, site unspecified]Unclassified (1 source)Nondependent tobacco use disorder; Translations: [Nondependent tobacco use disorder]Onset: 46-27-2482Jcgeuqicaeoj (1 source)Hypertrophy (benign) of prostate without urinary obstruction and other lower urinary tract symptoms[LUTS]; Translations: [Hypertrophy (benign) of prostate without urinary obstruction and other lowerurinary tract symptoms [LUTS]]Unclassified (1 source)Malignant neoplasm of bladder, part unspecified; Translations: [Malignant neoplasm of bladder, partunspecified]Onset: 40-48-2515Gcvjfagqkxej (1 source)Other specified pre-operative examination; Translations: [Other specified pre-operative examination]Onset: 46-77-0837Jffgijijxsxm (1 source)Special screening for malignant neoplasm of prostate; Translations: [Special screening for malignant neoplasm of prostate]Onset: 10-14-2013 Unclassified (1 source)Body mass index 28.0-28.9, adult; Translations: [Body mass index 28.0- 28.9, adult]Onset: 68-98-9856Xztrjueippdo (1 source)Body mass index 29.0-29.9, adult; Translations: [Body mass index 29.0- 29.9, adult]Onset: 67-33-1006Lxtwslzvbrxp (1 source)Long-term (current) use of other medications; Translations: [Long-term (current) use of other medications]Onset: 31-46-8309Zscfmezeqksm (1 source)Long-term current use of drug therapy; Translations: [Long-term (current) use of other medications]Onset: 56-69-6589Eouchulrdyob (2 sources)Onset: 01-10-2024 Resolved: Results Test NameValueInterpretationReference RangeFacilityBasophils Auto (Bld) [#/Vol] Ordered By: Antoni Monet on 36-60-6834Fzfmbprzl (Bld) [#/Vol]0.0 10 uL0.0-0.1 [facility] HospitalBasophils/100 WBC Auto (Bld)Ordered By: Antoni Monet on 12-29-4601Tgunugkuc/100 WBC (Bld)0.5 %0.2-2.0[facility] HospitalEosinophils/100 WBC Auto (Bld)Ordered By: Antoni Monet on 43-77-5773Grsxspepkhg/100 WBC (Bld)4.2 %0.9-7.0[facility] Erythrocyte distribution width Auto (RBC) [Ratio]Ordered By: Antoni Monet on 33-22-9253Opopfiiaurv distribution width (RBC) [Ratio]14.5 %11.0-15.0[facility] HospitalHematocrit Auto (Bld) [Volume fraction]Ordered By: Antoni Monet on 74-43-7602Oyusrsepwb (Bld) [Volume fraction]28.0 %Low42.0-54.0 [facility] HospitalHemoglobin [Mass/volume] in BloodOrdered By: Antoni Monet on 04-08-0157Atzazvtdpn (Bld) [Mass/Vol]9.2 g/dLLow14.0-18.0 [facility] HospitalLaboratory - Chemistry and Chemistry - challengeOrdered By: Antoni Monet on 06-97-8913Cqnbalpu [Mass/Vol]10.0 ng/mLLow 26.0-388.0[facility] HospitalLaboratory - Hematology and Cell countsOrdered By: Antoni Monet on 16-85-0657Zuoglbpe granulocytes/100 WBC (Bld) 0.2 %0.0-0.5FWooster Community HospitalLeukocytes [#/volume] corrected for nucleated erythrocytes in Blood by Automated counOrdered By: Antoni Monet on 30-62-9124EVN corrected for nucl RBC Auto (Bld) [#/Vol]6.5 10 3/uL4.0-11.0 [facility] HospitalLymphocytes Auto (Bld) [#/Vol]Ordered By: Antoni Monte on 74-17-1170Bumeaoabade (Bld) [#/Vol]1.5 10 3/uL1.2-3.8[facility] HospitalLymphocytes/100 WBC Auto (Bld)Ordered By: Antoni Monet on 37-34-2080Nbypzyefmhh/100 WBC (Bld)22.4 %20.5-60.0[facility] Auto (RBC) [Entitic mass]Ordered By: Antoni Monet on 74-56-2705AGC (RBC) [Entitic mass]29.4 pg25.9-34.0[facility] HospitalMCHC Auto (RBC) [Mass/Vol]Ordered By: Antoni Monet on 26-53-6348TDLA (RBC) [Mass/Vol]32.9 g/dL29.9-35.2FWooster Community HospitalMCV Auto (RBC) [Entitic vol] Ordered By: Antoni Monet on 35-89-9171EWN (RBC) [Entitic vol]89.5 fL80.0-94.0 [facility] HospitalMonocytes Auto (Bld) [#/Vol]Ordered By: Antoni Monet on 27-13-3973Ynczlcmpb (Bld) [#/Vol]0.4 10 3/uL0.3-0.8[facility] HospitalMonocytes/100 WBC Auto (Bld)Ordered By: Antoni Monet on 60-02-1832Pewjjrvlg/100 WBC (Bld)6.2 %1.7-12.0[facility] Neutrophils Auto (Bld) [#/Vol]Ordered By: Antoni Monet on 26-50-5772Yrnabyfsnsk (Bld) [#/Vol]4.3 10 3/uL1.4-6.5FWooster Community HospitalNeutrophils/100 WBC Auto (Bld)Ordered By: Antoni Monet on 36-34-4357Slxrcdqeoww/100 WBC (Bld) 66.5 %43.0-75.0[facility] HospitalNo Panel InformationOrdered By: Antoni Monet on 79-10-0175Zknqhfvqusv # (Auto)0.3 10 3/uL0.0-0.7FWooster Community HospitalImmature Granulocyte # (Auto)0.01 10 3/uL0.00-0.03 [facility] HospitalPlatelet mean volume Auto (Bld) [Entitic vol] Ordered By: Antoni Monet on 97-52-0543Ldughejv mean volume (Bld) [Entitic vol] 8.7 fLLow9.5-13.5FWooster Community HospitalPlatelets Auto (Bld) [#/Vol] Ordered By: Antoni Monet on 80-12-3083Omrnrzlhv (Bld) [#/Vol]442 10 3/vD074-824 [facility] HospitalRBC Auto (Bld) [#/Vol]Ordered By: Antoni Monet on 96-83-4900CSM (Bld) [#/Vol]3.13 10 6/uLLow4.70-6.10[facility] HospitalAlanine aminotransferase [Enzymatic activity/volume] in Serum or PlasmaOrdered By: Michelle Aguayo on 91-14-7683YAW [Catalytic activity/Vol]18 U/L Normal7-52[facility] HospitalComment on above:Performed By: #### CBC, CMP, MG ####[address] [place] [address] USAAlbumin [Mass/volume] in Serum or Plasma by Bromocresol green (BCG) dye binding methoOrdered By: Michelle Aguayo on 04-95-6118Kkndxov BCG dye [Mass/Vol] 3.8 g/dL3.5-5.7FWooster Community HospitalAlkaline phosphatase [Enzymatic activity/volume] in Serum or PlasmaOrdered By: Michelle Aguayo on 89-56-7541DIX [Catalytic activity/Vol]76 U/ODavvyu29-913YzrcpfosyThe [facility] Comment on above:Performed By: #### CBC, CMP, MG ####[address] [place] [address] USAAspartate aminotransferase [Enzymatic activity/volume] in Serum or PlasmaOrdered By: Michelle Aguayo on 77-57-7492GQA [Catalytic activity/Vol]12 U/LEqq63-09KckzqmgydThe [facility]vue HospitalComment on above:Performed By: #### CBC, CMP, MG ####[address] [place] [address] USABasophils [#/volume] in Blood by Automated countOrdered By: Michelle Aguayo on 93-74-4492Mjkllrmpw (Bld) [#/Vol]0.0 10*3/uL Normal0.0-0.2FWooster Community HospitalComment on above:Result Comment: PERFORMED BY: [facility] [address] [place] [id number] PATHOLOGIST [employer] FLORENCIO CORTEZ M.D.Performed By: #### CBC, CMP, MG ####[address] [place] [id number] USABasophils/100 leukocytes in Blood by Automated countOrdered By: Michelle Aguayo on 21-46-9525Bwfykczni/100 WBC (Bld)0.5 %Normal.[facility] HospitalComment on above:Performed By: #### CBC, CMP, MG ####[place] [address] USABilirubin.total [Mass/volume] in Serum or PlasmaOrdered By: Michelle Aguayo on 59-63-0081Xmazspqrb [Mass/Vol]0.4 mg/dLNormtn0.3-1.0[facility] HospitalComment on above:Performed By: #### CBC, CMP, MG ####[place] [id number] USACalcium [Mass/volume] in Serum or PlasmaOrdered By: Michelle Aguayo on 66-68-4180Hpuolde [Mass/Vol]8.3 mg/dLLow8.6-10.3FWooster Community HospitalComment on above:Performed By: #### CBC, CMP, MG ####[place] [id number] USACapillary blood glucose measurement by glucometer (mass/volume) Ordered By: Michelle Aguayo on 08-23-5316Fefccfc [Mass/Vol]151 mg/dLNoClinton Memorial HospitalComment on above:Random Glucose Reference Range is dependent on time and content of last meal. Glucose of more than 200 mg/dL in a nonstressed, ambulatory subject supports the diagnosis of Diabetes Mellitus. Result Comment: Random Glucose Reference Range is dependent on time and content of last meal. Glucose of more than 200 mg/dL in a nonstressed, ambulatory subject supports the diagnosis of Diabetes Mellitus. PERFORMED BY: [facility] [address] [place] [id number] PATHOLOGIST [employer] FLORENCIO CORTEZ M.D.Performed By: #### GLULS #### Point of Care testing ,Carbon dioxide, total [Moles/volume] in Serum or PlasmaOrdered By: Michelle Aguayo on 88-71-9175AN7 [Moles/Vol]27.3 mmol/ZFglyir34.0-31.0[facility] HospitalComment on above:Performed By: #### CBC, CMP, MG ####[place] [address] USAChloride [Moles/volume] in Serum or PlasmaOrdered By: Michelle Aguayo on 58-49-7698Vosxbhml [Moles/Vol]106 mmol/VEeopem78-034MuonumwgeThe [facility]vue HospitalComment on above:Performed By: #### CBC, CMP, MG ####[place] [id number] USAComplete Blood Count Auto Diffon 12-07-2024 Mean Corpuscular HGB Conc33.8 g/hNQuncyv78.5-35.6[facility] Comment on above:Performed By: #### CBC, CMP, MG ####[place] [id number] USANRBC%0.1 /100{WBC}Normal0-0.5The [facility] Physician GroupComment on above:Performed By: #### CBC, CMP, MG ####[id number] USAWhite Blood Count6.3 [CFU]/mLNormal4.1-10.5The [facility] Physician GroupComment on above:Performed By: #### CBC, CMP, MG ####[place] [id number] USAComprehensive Metabolic Panelon 12-07-2024 Albumin [Mass/Vol]3.8 g/dLNormal3.5-5.7[facility] Physician [facility] HospitalComment on above:Performed By: #### CBC, CMP, MG ####[place] [address] USACreatinine Clr Calc Icsahvdr51.75NormalThe [facility] Physician [facility] HospitalComment on above:Performed By: #### CBC, CMP, MG ####[place] [address] [place] GFR/1.73 sq M.predicted MDRD (S/P/Bld) [Vol rate/Area]mL/min/{1.73_m2}NormalThe [facility] Physician [facility] HospitalComment on above:Performed By: #### CBC, CMP, MG ####[place] [address] [place] Creatinine [Mass/volume] in Serum or PlasmaOrdered By: Michelle Aguayo on 06-10-4961Odafgxkmqn [Mass/Vol]1.03 mg/dLNormal0.70-1.30[facility] HospitalComment on above:Performed By: #### CBC, CMP, MG ####[place] [address] USAEosinophils [#/volume] in Blood by Automated countOrdered By: Michelle Aguayo on 12-07-2024 Eosinophils (Bld) [#/Vol]0.3 10*3/uLNormal0.0-0.45[facility] HospitalComment on above:Performed By: #### CBC, CMP, MG ####[place] [address] USAEosinophils/100 leukocytes in Blood by Automated countOrdered By: Michelle Aguayo on 58-55-3199Ecgzuunsfuz/100 WBC (Bld)4.7 %Normal.[facility] HospitalComment on above:Performed By: #### CBC, CMP, MG ####[place] [address] USAErythrocyte distribution width [Ratio] by Automated countOrdered By: Michelle Aguayo on 30-33-1611Xdvvejyedqf distribution width (RBC) [Ratio]14.2 %Avfmxh73.0-14.8[facility] HospitalComment on above: Performed By: #### CBC, CMP, MG ####[facility] [address] [place] [id number] USAErythrocytes [#/volume] in Blood by Automated count Ordered By: Michelle Aguayo on 73-12-6521KWS (Bld) [#/Vol]2.73 10*6/uLLow3.90-5.60 [facility] HospitalComment on above:Performed By: #### CBC, CMP, MG ####[facility] [id number] [place] [id number] [facility] Glomerular filtration rate [Volume Rate/Area] in Serum, Plasma or Blood by CreatinineOrdered By: Michelle Aguayo on 54-95-1662Fbkazbylkw filtration rate [Volume Rate/Area] in Serum, Plasma or Blood by Creatinine> 60.0 mL/MinThe Bellevue HospitalGlucose Poct Glucometerson 48-50-4601Kdnegbs [Mass/Vol] 139 mg/dLNoFormerly [facility] Physician GroupComment on above:Result Comment: Random Glucose Reference Range is dependent on time and content of last meal. Glucose of more than 200 mg/dL in a nonstressed, ambulatory subject supports the diagnosis of Diabetes Mellitus. PERFORMED BY: [facility] [address] [place] [address] PATHOLOGIST [employer] FLORENCIO CORTEZ M.D.Performed By: #### GLULS #### Point of Care testing ,Glucose [Mass/volume] in Serum or PlasmaOrdered By: Michelle Aguayo on 12-07-2024 Glucose [Mass/Vol]123 mg/vLXbzh52-329NbxtzspngThe Bellevue HospitalComment on above:ADA recommended reference rangeRandom Glucose Reference Range is dependent on time and content of last meal. Glucose of more than 200 mg/dL in a nonstressed, ambulatory subject supports the diagnosisof Diabetes Mellitus. Result Comment: Random Glucose Reference Range is dependent on time and content of last meal. Glucose of more than 200 mg/dL in a nonstressed, ambulatory subject supports the diagnosis of Diabetes Mellitus. ADA recommended reference rangePerformed By: #### CBC, CMP, MG ####[address] [place] [address] USAHematocrit [Volume Fraction] of Blood by Automated countOrdered By: Michelle Aguayo on 12-07-2024 Hematocrit (Bld) [Volume fraction]24.1 %Low38.8-50.0[facility] HospitalComment on above:Performed By: #### CBC, CMP, MG ####[address] [address] USAHemoglobin [Mass/volume] in BloodOrdered By: Michelle Aguayo on 55-69-1580Pmemcixozw (Bld) [Mass/Vol]8.1 g/dL Low13.0-17.0[facility] HospitalComment on above:Performed By: #### CBC, CMP, MG ####[place] [id number] USALeukocytes [#/volume] corrected for nucleated erythrocytes in Blood by Automated counOrdered By: Michelle Aguayo on 46-80-7056CYV corrected for nucl RBC Auto (Bld) [#/Vol]6.3 10*3/uL4.1-10.5FWooster Community HospitalLeukocytes [#/volume] in Blood by Automated countOrdered By: Michelle Aguayo on 76-72-4505ZXS (Bld) [#/Vol]6.3 10*3/uLNormal4.1-10.5FWooster Community HospitalComment on above:Performed By: #### CBC, CMP, MG ####[address] [address] USALymphocytes [#/volume] in Blood by Automated countOrdered By: Michelle Aguayo on 23-68-6139Utirgmtznjy (Bld) [#/Vol]1.3 10*3/uL Normal1.00-4.8[facility] HospitalComment on above:Performed By: #### CBC, CMP, MG ####[address] [place] [address] USALymphocytes/100 leukocytes in Blood by Automated countOrdered By: Michelle Aguayo on 80-94-3648Rqycwcskxie/100 WBC (Bld)20.1 %Normal.The [facility] HospitalComment on above:Performed By: #### CBC, CMP, MG ####[address] [place] [address] [facility] [Entitic mass] by Automated countOrdered By: Michelle Aguayo on 66-00-0846TZH (RBC) [Entitic mass]29.8 utZsruzq34.5-35.2FWooster Community HospitalComment on above:Performed By: #### CBC, CMP, MG ####[address] [place] [id number] [facility] Auto (RBC) [Mass/Vol]Ordered By: Michelle Aguayo on 00-09-7864ASGG (RBC) [Mass/Vol]33.8 g/dL32.5-35.6FWooster Community HospitalMCV [Entitic volume] by Automated countOrdered By: Michelle Aguayo on 50-65-7459GWB (RBC) [Entitic vol]88.2 oMWnbqeh05.5-101The [facility] HospitalComment on above:Performed By: #### CBC, CMP, MG ####[address] [address] USAMagnesium [Mass/volume] in Serum or PlasmaOrdered By: Michelle Aguayo on 91-44-2015Bfxvzklaa [Mass/Vol]2.2 mg/dLNormal1.9-2.7FWooster Community HospitalComment on above:Result Comment: PERFORMED BY: [facility] [address] [place] [address] PATHOLOGIST [employer] FLORENCIO CORTEZ M.D.Performed By: #### CBC, CMP, MG ####[place] [id number] USAMonocytes [#/volume] in Blood by Automated countOrdered By: Michelle Aguayo on 17-62-0251Axoqfqvyy (Bld) [#/Vol] 0.3 10*3/uLNormal0.0-0.8[facility] HospitalComment on above: Performed By: #### CBC, CMP, MG ####[facility] [address] [place] [address] USAMonocytes/100 leukocytes in Blood by Automated count Ordered By: Michelle Aguayo on 37-97-3081Wcduwlkrx/100 WBC (Bld)5.5 %Normal. [facility] HospitalComment on above:Performed By: #### CBC, CMP, MG ####[address] [place] [address] [place] Neutrophils [#/volume] in Blood by Automated countOrdered By: Michelle Aguayo on 91-31-5168Udmghbhsrfd (Bld) [#/Vol]4.3 10*3/uLNormal1.8-7.7FWooster Community HospitalComment on above:Performed By: #### CBC, CMP, MG ####[facility] [address] [place] [address] USANeutrophils/100 leukocytes in Blood by Automated countOrdered By: Michelle Aguayo on 12-07-2024 Neutrophils/100 WBC (Bld)69.2 %Normal.The Bellevue HospitalComment on above:Performed By: #### CBC, CMP, MG ####[address] [address] USANo Panel InformationOrdered By: Michelle Aguayo on 13-93-5596Gvzdmhja Creatinine Clearance (Chem71.75The Bellevue HospitalNucleated erythrocytes [Presence] in Blood by Automated countOrdered By: Michelle Aguayo on 88-17-0913Gmacupivs RBC Auto Ql (Bld)0.1 /100{WBC}0-0.5FWooster Community HospitalPlatelet mean volume [Entitic volume] in Blood by Automated countOrdered By: Michelle Aguayo on 61-31-4421Mloazstr mean volume (Bld) [Entitic vol]7.1 fLNormal6.6-10.1FWooster Community HospitalComment on above:Performed By: #### CBC, CMP, MG ####[address] [place] [address] USAPlatelets [#/volume] in Blood by Automated countOrdered By: Michelle Aguayo on 61-99-1321Pbtstiiwj (Bld) [#/Vol]379 10*3/uL Vhwhjf074-941JenuqikhiThe Bellevue HospitalComment on above:Performed By: #### CBC, CMP, MG ####[address] [address] USAPotassium [Moles/volume] in Serum or PlasmaOrdered By: Michelle Aguayo on 79-07-4165Ckzclzifp [Moles/Vol]4.2 mmol/LNormal3.5-5.1FWooster Community HospitalComment on above:Performed By: #### CBC, CMP, MG ####[address] [address] USAProtein [Mass/volume] in Serum or PlasmaOrdered By: Michelle Aguayo on 81-12-3476Awkhtpu [Mass/Vol]5.8 g/dLLow6.4-8.9The [facility] HospitalComment on above:Performed By: #### CBC, CMP, MG ####[address] [address] USASerum globulin measurement by calculation (mass/volume)Ordered By: Michelle Aguayo on 51-45-7100Gkdsfwmf (S) [Mass/Vol]2.0 g/dLNormOhioHealth Riverside Methodist HospitalComment on above:Performed By: #### CBC, CMP, MG ####[address] [address] USASerum or plasma albumin/globulin mass ratioOrdered By: Michelle Aguayo on 12-07-2024 Albumin/Globulin [Mass ratio]1.9 {ratio}[facility] Comment on above:Performed By: #### CBC, CMP, MG ####[address] [address] USASerum or plasma anion gap determinationOrdered By: Michelle Aguayo on 10-54-5347Gonsc gap [Moles/Vol]8.9 mmol/LNormal6.0-15.0The [facility] HospitalComment on above:Performed By: #### CBC, CMP, MG ####[address] [place] [address] USASodium [Moles/volume] in Serum or PlasmaOrdered By: Michelle Aguayo on 99-99-6804Olhzpm [Moles/Vol]138 mmol/SHlqmgv330-618QncvovrunThe Bellevue HospitalComment on above:Performed By: #### CBC, CMP, MG ####[address] USAUrea nitrogen [Mass/volume] in Serum or PlasmaOrdered By: Michelle Aguayo on 12-07-2024 Urea nitrogen [Mass/Vol]20 mg/dLNormal7-25[facility] Comment on above:Performed By: #### CBC, CMP, MG ####[address] [address] USABasic Metabolic Panelon 12-06-2024 Anion gap [Moles/Vol]6.5 mmol/LNormal6.0-15.0The [facility] Comment on above:Performed By: #### GLULS #### Point of Care testing ,Calcium [Mass/Vol]8.4 mg/dLLow8.6-10.3The [facility] Physician GroupComment on above:Performed By: #### GLULS #### Point of Care testing ,Chloride [Moles/Vol]106 mmol/XSnhaoo85-448Ucl [facility] Physician GroupComment on above:Performed By: #### GLULS #### Point of Care testing ,CO2 [Moles/Vol]30.2 mmol/FVsnjgc85.0-31.0The [facility] Physician GroupComment on above:Performed By: #### GLULS #### Point of Care testing ,Creatinine [Mass/Vol]0.88 mg/dLNormal0.70-1.30The [facility] Comment on above:Performed By: #### GLULS #### Point of Care testing ,Creatinine Clr Calc Ecggsazg90.15NormalThe [facility] Physician GroupComment on above:Performed By: #### GLULS #### Point of Care testing ,GFR/1.73 sq M.predicted MDRD (S/P/Bld) [Vol rate/Area]mL/min/{1.73_m2}NormalThe [facility] Physician GroupComment on above:Performed By: #### GLULS #### Point of Care testing ,Glucose [Mass/Vol]120 mg/dCEwbu98-562Tng [facility] Physician GroupComment on above:Result Comment: Random Glucose Reference Range is dependent on time and content of last meal. Glucose of more than 200 mg/dL in a nonstressed, ambulatory subject supports the diagnosis of Diabetes Mellitus. ADA recommended reference rangePerformed By: #### GLULS #### Point of Care testing ,Potassium [Moles/Vol]4.7 mmol/LNormal3.5-5.1The [facility] Comment on above:Performed By: #### GLULS #### Point of Care testing ,Sodium [Moles/Vol]138 mmol/PXftrpm754-702Fbg [facility] Physician GroupComment on above:Performed By: #### GLULS #### Point of Care testing ,Urea nitrogen [Mass/Vol]17 mg/dLNormal7-25The [facility] Physician GroupComment on above:Performed By: #### GLULS #### Point of Care testing ,Complete Blood Count Auto Diffon 16-21-0524Ywjqffddd (Bld) [#/Vol]0.0 10*3/uL Normal0.0-0.2The [facility] Physician GroupComment on above:Result Comment: PERFORMED BY: [address] [place] [address] [place] [address] PATHOLOGIST [employer] FLORENCIO CORTEZ M.D.Performed By: #### GLULS #### Point of Care testing ,Basophils/100 WBC (Bld)0.4 %Normal.The [facility] Physician GroupComment on above:Performed By: #### GLULS #### Point of Care testing ,Eosinophils (Bld) [#/Vol]0.3 10*3/uLNormal0.0-0.45The [facility] Comment on above:Performed By: #### GLULS #### Point of Care testing ,Eosinophils/100 WBC (Bld)4.9 %Normal.The [facility] Physician GroupComment on above:Performed By: #### GLULS #### Point of Care testing ,Erythrocyte distribution width (RBC) [Ratio]14.3 %Izoskr89.0-14.8The [facility] Physician GroupComment on above:Performed By: #### GLULS #### Point of Care testing ,Hematocrit (Bld) [Volume fraction]24.5 %Low38.8-50.0The [facility] Physician GroupComment on above:Performed By: #### GLULS #### Point of Care testing ,Hemoglobin (Bld) [Mass/Vol]8.2 g/dLLow13.0-17.0The [facility] Comment on above:Performed By: #### GLULS #### Point of Care testing ,Lymphocytes (Bld) [#/Vol]1.3 10*3/uLNormal1.00-4.8The [facility] Comment on above:Performed By: #### GLULS #### Point of Care testing ,Lymphocytes/100 WBC (Bld)20.9 %Normal.The [facility] Physician GroupComment on above:Performed By: #### GLULS #### Point of Care testing ,MCH (RBC) [Entitic mass]29.9 bnKrnrle74.5-35.2The [facility] Comment on above:Performed By: #### GLULS #### Point of Care testing ,MCV (RBC) [Entitic vol]89.1 xPXgmflx69.5-101The [facility] Comment on above:Performed By: #### GLULS #### Point of Care testing ,Mean Corpuscular HGB Conc33.5 g/dQQylgon30.5-35.6The [facility] Comment on above:Performed By: #### GLULS #### Point of Care testing ,Monocytes (Bld) [#/Vol]0.4 10*3/uLNormal0.0-0.8The [facility] Comment on above:Performed By: #### GLULS #### Point of Care testing ,Monocytes/100 WBC (Bld)6.3 %Normal.The [facility] Physician GroupComment on above:Performed By: #### GLULS #### Point of Care testing ,Neutrophils (Bld) [#/Vol]4.3 10*3/uLNormal1.8-7.7The [facility] Comment on above:Performed By: #### GLULS #### Point of Care testing ,Neutrophils/100 WBC (Bld)67.5 %Normal.The [facility] Physician GroupComment on above:Performed By: #### GLULS #### Point of Care testing ,NRBC%0.1 /100{WBC}Normal0-0.5The [facility] Physician GroupComment on above: Performed By: #### GLULS #### Point of Care testing ,Platelet mean volume (Bld) [Entitic vol]7.4 fLNormal6.6-10.1The [facility] Physician GroupComment on above:Performed By: #### GLULS #### Point of Care testing ,Platelets (Bld) [#/Vol]380 10*3/eZLyxhmz047-665Zgz [facility] Comment on above:Performed By: #### GLULS #### Point of Care testing ,RBC (Bld) [#/Vol]2.75 10*6/uLLow3.90-5.60The [facility] Physician GroupComment on above:Performed By: #### GLULS #### Point of Care testing ,WBC (Bld) [#/Vol]6.3 10*3/uLNormal4.1-10.5The [facility] Physician GroupComment on above:Performed By: #### GLULS #### Point of Care testing ,White Blood Count6.3 [CFU]/mLNormal4.1-10.5The [facility] Physician GroupComment on above:Performed By: #### GLULS #### Point of Care testing ,ECH echo transthoracicon 47-33-8514CRR echo transthoracicTRINITY [facility] [address] [place] [address] Echocardiogram Signed Patient: Jesse Garrison MR#: [id number] : 1950 Acct:[id number] Age/Sex: 74 / M ADM Date: 12/05/24 Loc: Room: [address] [place] [address] Type: ADM IN Attending Dr: Michelle Aguayo MD Ordering Provider: Yamilex Verma APRN Date of Service: 12/06/24 ECH/ECH echo transthoracic: shortness of breath, chest pressure Copies to: MD Yamilex Murray, SECURITY RESEARCHER Jesse PM Patient Location: : 1950 Gender: Male (MM/DD/YYYY) Age: 74 Years Ordering Physician: Yamilex Verma Height: 69 in Weight: 204.809 lb Performed By: Esequiel Carballo [facility], [facility] BSA: 2.09 m2 BP: 108 / 59 [...] Tech Comments No previous echo. Transcribed By: SCV Performed At: 12/06/24 2768 Signed By: Alhaji Sung MD 12/06/241950NoFormerly [facility] Physician GroupGlucose Poct Glucometerson 93-25-3904Zzksmfg [Mass/Vol]169 mg/dL NormalThe [facility] Physician GroupComment on above:Result Comment: Random Glucose Reference Range is dependent on time and content of last meal. Glucose of more than 200 mg/dL in a nonstressed, ambulatory subject supports the diagnosis of Diabetes Mellitus. PERFORMED BY: [place] [address] PATHOLOGIST [employer] FLORENCIO CORTEZ M.D.Performed By: #### GLULS #### Point of Care testing ,Glucose [Mass/Vol]157 mg/dLHCA Florida Brandon Hospital Physician GroupComment on above: Result Comment: Random Glucose Reference Range is dependent on time and content of last meal. Glucose of more than 200 mg/dL in a nonstressed, ambulatory subject supports the diagnosis of Diabetes Mellitus. PERFORMED BY: [place] [address] PATHOLOGIST [employer] FLORENCIO CORTEZ M.D.Performed By: #### GLULS ####Point of Care testing,Glucose [Mass/Vol]169 mg/dLHCA Florida Brandon Hospital Physician GroupComment on above:Result Comment: Random Glucose Reference Range is dependent on time and content of last meal. Glucose of more than 200 mg/dL in a nonstressed, ambulatory subject supports the diagnosis of Diabetes Mellitus. PERFORMED BY: [place] [address] PATHOLOGIST [employer] FLORENCIO CORTEZ M.D.Performed By: #### GLULS #### Point of Care testing ,Ookeszw9Wya4: Cleaned MeterNoFormerly [facility] Hospital Physician GroupComment on above: Result Comment: PERFORMED BY: [place] [address] PATHOLOGIST [employer] FLORENCIO CORTEZ M.D.Performed By: #### BMP, CBC #### [place] [address] USAGlucose [Mass/Vol]158 mg/dLNoFormerly [facility] Physician GroupComment on above:Result Comment: Random Glucose Reference Range is dependent on time and content of last meal. Glucose of more than 200 mg/dL in a nonstressed, ambulatory subject supports the diagnosis of Diabetes Mellitus.Performed By: #### BMP, CBC #### [facility] [address] USAMagnesiumon 41-19-5537Wdffcvetd [Mass/Vol]2.3 mg/dLNormal 1.9-2.7The [facility] Physician GroupComment on above:Result Comment: PERFORMED BY: [place] [address] PATHOLOGIST [employer] FLORENCIO CORTEZ M.D.Performed By: #### BMP, CBC #### [facility] [address] [place], [place] [address] USANo Panel InformationOrdered By: Elvis Wilkinson on 12-06-2024 Bedside Glucose CommentGlu2: cleaned [facility] Troponin I High Sensitivityon 47-14-0607Tboqtuie I High Xvimikpdouh63Jvqzbb4-65 The [facility] Physician GroupComment on above:Result Comment: The Troponin units of report have been changed to meet the Chest Pain Accreditation requirement, element EC5.M1l2. Troponin units are changed from pg/ml to ng/L. Also, the decimal is removed and results are in whole numbers. PERFORMED BY: [place] [address] PATHOLOGIST [employer] FLORENCIO CORTEZ M.D.Performed By: #### GLULS #### Point of Care testing ,Troponin I.cardiac [Mass/volume] in Serum or Plasma by Detection limit <= 0.01 ng/mLOrdered By: Yamilex Verma on 44-38-7941Mmagtvgh I.cardiac DL <= 0.01 ng/mL [Mass/Vol]17 ng/L0-20The Bellevue HospitalComment on above:The Troponin units of report have been changed to meet the Chest Pain Accreditation requirement, element EC5.M1l2. Troponin units are changed from pg/ml to ng/L. Also, the decimal is removed and results are in whole numbers.Alanine aminotransferase [Enzymatic activity/volume] in Serum or PlasmaOrdered By: Mavis Gonzalez on 15-36-9462DLE [Catalytic activity/Vol]22 U/LNormal7-52 The Bellevue HospitalComment on above:Performed By: #### BMP, CBC #### [place] [address] USAAlbumin [Mass/volume] in Serum or Plasma by Bromocresol green (BCG) dye binding methoOrdered By: Mavis Gonzalez on 08-46-7997Gkgntqz BCG dye [Mass/Vol]4.3 g/dL3.5-5.7FWooster Community HospitalAlkaline phosphatase [Enzymatic activity/volume] in Serum or PlasmaOrdered By: Mavis Gonzalez on 14-69-3428NST [Catalytic activity/Vol]85 U/IQpwyfn88-956DxrpdxmgwThe Bellevue HospitalComment on above:Performed By: #### DILLON, CBC #### [place] [address] USAAspartate aminotransferase [Enzymatic activity/volume] in Serum or PlasmaOrdered By: Mavis Gonzalez on 65-39-4414GZY [Catalytic activity/Vol]18 U/FRyhfmo40-32XqbblafcbThe Bellevue HospitalComment on above: Performed By: #### DILLON, CBC #### [place] [address] USABNP ser/plasOrdered By: Mavis Gonzalez on 12-05-2024 Natriuretic peptide B (Bld) [Mass/Vol]35.0 pg/mLNormal5-100The Bellevue HospitalComment on above:Result Comment: PERFORMED BY: [place] [address] PATHOLOGIST [employer] FLORENCIO CORTEZ M.D.Performed By: #### DILLON, CBC #### [place] [address] USABasophils [#/volume] in Blood by Automated countOrdered By: Mavis Gonzalez on 86-91-4045Yksnxuhqa (Bld) [#/Vol]0.0 10*3/uLNormal0.0-0.2 The Bellevue HospitalComment on above:Result Comment: PERFORMED BY: [place] [address] PATHOLOGIST [employer] FLORENCIO CORTEZ M.D.Performed By: #### BMP, CBC #### [facility] [address] [place] [address] USABasophils/100 leukocytes in Blood by Automated count Ordered By: Mavis Gonzalez on 95-31-1462Htwdfyrrq/100 WBC (Bld)0.3 %Normal. The Bellevue HospitalComment on above:Performed By: #### BMP, CBC #### [facility] [address] [place] [address] USABilirubin.total [Mass/volume] in Serum or PlasmaOrdered By: Mavis Gonzalez on 98-10-4276Djxayfevd [Mass/Vol]0.3 mg/dLNormal0.3-1.0 The Bellevue HospitalComment on above:Performed By: #### BMP, CBC #### [facility] [address] [place] [address] USACT angio chest PE protocolon 22-17-7637FZ angio chest PE protocolTRINITY HEALTH SYSTEM [facility] [place] [address] CT Scan Report Signed Patient: Jesse Garrison MR#: [id number] : 1950 Acct:[id number] Age/Sex: 74 / M ADM Date: 12/05/24 Loc: ER Room: Type: [facility] ER Attending Dr: Copies to: Mavis [...] Mendoza M.D. 12/05/2024 8:01 PM Dictation Location: [place] [address] Transcribed By: [facility] 12/05/242000 Dictated By: Dallsa Mendoza MD 12/05/241958 Signed By: 12/05/[address] [place] [address] Physician GroupCalcium [Mass/volume] in Serum or PlasmaOrdered By: Mavis Gonzalez on 53-75-8955Simjxcb [Mass/Vol]9.2 mg/dL Normal8.6-10.3FWooster Community HospitalComment on above:Performed By: #### BMP, CBC #### [facility] [address] USACarbon dioxide, total [Moles/volume] in Serum or Plasma Ordered By: Mavis Gonzalez on 22-54-7632GQ7 [Moles/Vol]31.1 mmol/LHigh21.0-31.0 The [facility]vue HospitalComment on above:Performed By: #### BMP, CBC #### [facility] [address] [place] [address] USAChloride [Moles/volume] in Serum or PlasmaOrdered By: Mavis Gonzalez on 55-57-5307Kuucdppj [Moles/Vol]102 mmol/ZTihgwh09-093AzhhoalrlThe Bellevue HospitalComment on above:Performed By: #### BMP, CBC #### [facility] [address] [place] [address] USAComplete Blood Count Auto Diffon 57-63-1692Yxjk Corpuscular HGB Conc33.9 g/uUKxljbc56.5-35.6The [facility]ician [facility] HospitalComment on above:Performed By: #### BMP, CBC #### [place] [address] USAMonocytes/100 WBC (Bld)18.12 %Normal0.00-20.00The [facility] Physician GroupComment on above:Performed By: #### BMP, CBC #### [place] [address] USANRBC%0.2 /100{WBC}Normal0-0.5The [facility] Physician [facility] Comment on above:Performed By: #### BMP, CBC #### [place] [address] USAWhite Blood Count6.7 [CFU]/mLNormal4.1-10.5The [facility] Physician [facility] HospitalComment on above:Performed By: #### BMP, CBC #### [place] [address] USAComprehensive Metabolic Panelon 64-05-4479Rjsmnkx [Mass/Vol]4.3 g/dLNormal3.5-5.7The [facility] Physician [facility] HospitalComment on above: Performed By: #### BMP, CBC #### [place] [address] USACreatinine Clr Calc Vrdhdrob21.16NormalThe [facility] Physician [facility] HospitalComment on above:Result Comment: PERFORMED BY: [place] [address] PATHOLOGIST [employer] FLORENCIO CORTEZ M.D.Performed By: #### BMP, CBC #### [place] [address] USAGFR/1.73 sq M.predicted MDRD (S/P/Bld) [Vol rate/Area] mL/min/{1.73_m2}NormalThe [facility] Physician [facility] HospitalComment on above:Performed By: #### BMP, CBC #### [place] [address] USACreatinine [Mass/volume] in Serum or PlasmaOrdered By: Mavis Gonzalez on 82-42-0928Mdsgcgihyy [Mass/Vol]0.87 mg/dLNormal0.70-1.30 The [facility] HospitalComment on above:Performed By: #### BMP, CBC #### [facility] [address] [place] [address] USAECG 12 lead ECGon 98-91-7255PEX 12 lead ECGTRINITY HEALTH [facility] [address] [place] [place] [address] Electrocardiograph Report Signed Patient: Jesse Garrison MR#: [id number] : 1950 Acct:[id number] Age/Sex: 74 / M ADM Date: 12/05/24 Loc: Room: [address] [place] [address] Type: ADM IN Attending Dr: Elvis Wilkinson [...] branch block Confirmed by Carri Shoemaker MD ([id number]) on 12/06/2024 12:42:01 AM Referred By: Electronically Signed By: Carri Shoemaker MD Transcribed By: MUS Signed By Carri Shoemaker MD 11/12 09/04 0042[facility] Physician GroupEosinophils [#/volume] in Blood by Automated countOrdered By: Mavis Gonzalez on 32-00-3329Jvicmnxevbl (Bld) [#/Vol]0.3 10*3/uLNormal0.0-0.45The [facility] HospitalComment on above:Performed By: #### BMP, CBC #### [address] [address] USAEosinophils/100 leukocytes in Blood by Automated count Ordered By: Mavis Gonzalez on 02-99-2031Htglbuledtd/100 WBC (Bld)3.8 %Normal. The Bellevue HospitalComment on above:Performed By: #### BMP, CBC #### [place] [address] USAErythrocyte distribution width [Ratio] by Automated count Ordered By: Mavis Gonzalez on 29-57-5633Wqxliiajjhk distribution width (RBC) [Ratio]14.8 %Cjtqjn01.0-14.8The [facility] HospitalComment on above: Performed By: #### BMP, CBC #### [place] [address] USAErythrocytes [#/volume] in Blood by Automated countOrdered By: Mavis Gonzalez on 63-38-1196OQY (Bld) [#/Vol]2.89 10*6/uLLow3.90-5.60 The [facility] HospitalComment on above:Performed By: #### BMP, CBC #### [place] [address] USAGlomerular filtration rate [Volume Rate/Area] in Serum, Plasma or Blood by CreatinineOrdered By: Mavis Gonzalez on 07-77-2654Leqztjpjas filtration rate [Volume Rate/Area] in Serum, Plasma or Blood by Creatinine> 60.0 mL/MinThe Bellevue HospitalGlucose Poct Glucometerson 12-05-2024 Eqwlgnj4Kvz1: Cleaned MeterNoFormerly [facility] Physician GroupComment on above: Result Comment: PERFORMED BY: [place] [address] PATHOLOGIST [employer] FLORENCIO CORTEZ M.D.Performed By: #### BMP, CBC #### [place] [address] USAGlucose [Mass/Vol]158 mg/dLHCA Florida Brandon Hospital Physician GroupComment on above:Result Comment: Random Glucose Reference Range is dependent on time and content of last meal. Glucose of more than 200 mg/dL in a nonstressed, ambulatory subject supports the diagnosis of Diabetes Mellitus.Performed By: #### BMP, CBC #### [address] [address] USAGlucose [Mass/volume] in Serum or PlasmaOrdered By: Mavis Gonzalez on 37-96-7900Ubyurwi [Mass/Vol]237 mg/jJJlzd06-686WnnfpvlbjThe Bellevue HospitalComment on above:ADA recommended reference rangeRandom Glucose Reference Range is dependent on time and content of last meal. Glucose of more than 200 mg/dL in a nonstressed, ambulatory subject supports the diagnosisof Diabetes Mellitus.Result Comment: Random Glucose Reference Range is dependent on time and content of last meal. Glucose of more than 200 mg/dL in a nonstressed, ambulatory subject supports the diagnosis of Diabetes Mellitus. ADA recommended reference rangePerformed By: #### BMP, CBC #### [facility] [address] [place], [place] [address] USAHematocrit [Volume Fraction] of Blood by Automated count Ordered By: Mavis Gonzalez on 16-25-5237Lapanbbwgq (Bld) [Volume fraction]25.7 %Low38.8-50.0The [facility] HospitalComment on above:Performed By: #### BMP, CBC #### [facility] [address] [place] [address] USAHemoglobin [Mass/volume] in BloodOrdered By: Mavis Gonzalez on 72-40-6479Nuqjtwonde (Bld) [Mass/Vol]8.7 g/dLLow13.0-17.0The [facility] HospitalComment on above:Performed By: #### BMP, CBC #### [facility] [address] [place] [address] USAINR in Platelet poor plasma by Coagulation assayOrdered By: Mavis Gonzalez on 31-63-4856BPG Coag (PPP) [Relative time]0.9 {INR}Normal The [facility]vue HospitalComment on above:INR Therapeutic Range A) Pre- and Peroperative OAT started two weeks before surgery. NOT HIP SURGERY: 1.5 - 2.5 HIP SURGERY: 2 - 3B) Primary and secondary prevention of venous THROMBOSIS: 2 - 3C) Active venous thrombosis, pulmonary embolismand prevention of recurrent venous thrombosis: 2 - 3D) Prevention of arterial thromboembolismincluding patients with mechanical heart valves: 3 - 4.5Result Comment: INR Therapeutic Range A) Pre- and [...] patients with mechanical heart valves: 3 - 4.5Performed By: #### BMP, CBC #### [facility] [address] [place] [address] USALeukocytes [#/volume] corrected for nucleated erythrocytes in Blood by Automated counOrdered By: Mavis Gonzalez on 87-82-5005SJM corrected for nucl RBC Auto (Bld) [#/Vol]6.7 10*3/uL4.1-10.5FWooster Community HospitalLeukocytes [#/volume] in Blood by Automated countOrdered By: Mavis Gonzalez on 36-46-0339WKF (Bld) [#/Vol]6.7 10*3/uLNormal4.1-10.5FWooster Community HospitalComment on above:Performed By: #### BMP, CBC #### [facility] [address] [place] [address] USALymphocytes [#/volume] in Blood by Automated countOrdered By: Mavis Gonzalez on 01-21-1177Xyxscugxmnz (Bld) [#/Vol]1.2 10*3/uLNormal 1.00-4.8The [facility] HospitalComment on above:Performed By: #### BMP, CBC #### [facility] [address] [place] [address] USALymphocytes/100 leukocytes in Blood by Automated count Ordered By: Mavis Gonzalez on 28-83-8540Mllinujhqwv/100 WBC (Bld)18.6 %Normal. The [facility] HospitalComment on above:Performed By: #### BMP, CBC #### [facility] [address] [place] [id number] USAMCH [Entitic mass] by Automated countOrdered By: Mavis Gonzalez on 05-51-9811HMM (RBC) [Entitic mass]30.2 gyGhrzqa04.5-35.2FWooster Community HospitalComment on above:Performed By: #### BMP, CBC #### [facility] [address] Auto (RBC) [Mass/Vol]Ordered By: Mavis Gonzalez on 19-93-4384XGML (RBC) [Mass/Vol]33.9 g/dL32.5-35.6FWooster Community HospitalMCV [Entitic volume] by Automated countOrdered By: Mavis Gonzalez on 28-68-1499XEW (RBC) [Entitic vol]88.9 jTCchler35.5-101The Bellevue HospitalComment on above:Performed By: #### BMP, CBC #### [facility] [address] [place] [address] USAMonocyte distribution width [Entitic volume] in Blood by AutomatedOrdered By: Mavis Gonzalez on 17-99-2324Gzveduoo distribution width Auto (Bld) [Entitic vol]18.12 %0.00-20.00[facility] Monocytes [#/volume] in Blood by Automated countOrdered By: Mavis Gonzalez on 79-58-1160Hscglczfd (Bld) [#/Vol]0.4 10*3/uLNormal0.0-0.8The Bellevue HospitalComment on above:Performed By: #### BMP, CBC #### [facility] [address] [place] [address] USAMonocytes/100 leukocytes in Blood by Automated count Ordered By: Mavis Gonzalez on 42-31-3328Ohuslugkl/100 WBC (Bld)5.3 %Normal. The Bellevue HospitalComment on above:Performed By: #### BMP, CBC #### [place] [address] USANeutrophils [#/volume] in Blood by Automated countOrdered By: Mavis Gonzalez on 85-23-5919Hwalvoyokni (Bld) [#/Vol]4.8 10*3/uLNormal 1.8-7.7FWooster Community HospitalComment on above:Performed By: #### BMP, CBC #### [facility] [address] [place] [id number] USANeutrophils/100 leukocytes in Blood by Automated count Ordered By: Mavis Gonzalez on 45-72-0307Yugllzgbhdl/100 WBC (Bld)72.0 %Normal. The Bellevue HospitalComment on above:Performed By: #### BMP, CBC #### [facility] [address] [place] [address] USANo Panel InformationOrdered By: Mavis Gonzalez on 84-87-7838Uxmjbprh Creatinine Clearance (Chem85.16The Bellevue HospitalNucleated erythrocytes [Presence] in Blood by Automated countOrdered By: Mavis Gonzalez on 50-32-0703Ybcczdjjk RBC Auto Ql (Bld)0.2 /100{WBC}0-0.5 The [facility] HospitalPartial Thromboplastin Timeon 45-78-1472cDKG Coag (Bld) [Time]27.2 iCbfuqy61.1-36.5The [facility] Physician GroupComment on above:Result Comment: A hematocrit value greater than 55% may lead to inaccurate results in coagulation testing. Patients having hematocrit values >55% require a special collection tube for coagulation studies. Please contact the laboratory at [phone] for redraw instructions. PERFORMED BY: [place] [address] PATHOLOGIST [employer] FLORENCIO CORTEZ M.D.Performed By: #### BMP, CBC #### [address] [address] USAPlatelet mean volume [Entitic volume] in Blood by Automated countOrdered By: Mavis Gonzalez on 87-53-5672Swfoazqe mean volume (Bld) [Entitic vol]7.1 fLNormal6.6-10.1FWooster Community HospitalComment on above:Performed By: #### BMP, CBC #### [address] [address] USAPlatelets [#/volume] in Blood by Automated countOrdered By: Mavis Valleslara on 83-00-0382Pkcdslrzs (Bld) [#/Vol]405 10*3/nCOgxxvj494-286 The Bellevue HospitalComment on above:Performed By: #### BMP, CBC #### [facility] [address] [place] [address] USAPotassium [Moles/volume] in Serum or PlasmaOrdered By: Mavis Valleslara on 42-43-1322Akmqhvcnw [Moles/Vol]4.1 mmol/LNormal3.5-5.1 The Bellevue HospitalComment on above:Performed By: #### BMP, CBC #### [facility] [address] [place] [address] USAProtein [Mass/volume] in Serum or PlasmaOrdered By: Mavis Hailara on 07-61-3685Cukccre [Mass/Vol]6.4 g/dLNormal6.4-8.9The Bellevue HospitalComment on above:Performed By: #### BMP, CBC #### [facility] [address] [place] [address] USAProthrombin time (PT)Ordered By: Mavis Hailara on 92-59-4856NI Coag (PPP) [Time]10.6 sNormal9.0-12.9The [facility] HospitalComascension borgess hospital on above:A hematocrit value greater than 55% may lead to inaccurate results in coagulation testing. Patientshaving hematocrit values >55% require a special collection tube for coagulation studies. Please contact the laboratory at [phone] for redraw instructions.Result Comment: A hematocrit value greater than 55% may lead to inaccurate results in coagulation testing. Patients having hematocrit values >55% require a special collection tube for coagulation studies. Please contact the laboratory at [phone] for redraw instructions.Performed By: #### BMP, CBC #### [facility] [address] [place] [address] USASerum globulin measurement by calculation (mass/volume) Ordered By: Mavis Gonzalez on 80-29-5733Uxwrwdaj (S) [Mass/Vol]2.1 g/dLCooper County Memorial Hospitalal The Bellevue HospitalComment on above:Performed By: #### BMP, CBC #### [facility] [address] [place] [address] USASerum or plasma albumin/globulin mass ratioOrdered By: Mavis Gonzalez on 49-15-2364Uootxoq/Globulin [Mass ratio]2.0 {ratio}Normal The Bellevue HospitalComment on above:Performed By: #### BMP, CBC #### [facility] [address] [place] [address] USASerum or plasma anion gap determinationOrdered By: Mavis Gonzalez on 56-97-6967Pqftu gap [Moles/Vol]10.0 mmol/LNormal6.0-15.0 The Bellevue HospitalComment on above:Performed By: #### BMP, CBC #### [facility] [address] [place] [address] USASodium [Moles/volume] in Serum or PlasmaOrdered By: Mavis Gonzalez on 98-08-5757Yagasy [Moles/Vol]139 mmol/PWkkyws911-052SsqevsppmThe Bellevue HospitalComment on above:Performed By: #### BMP, CBC #### [facility] [address] [place] [address] USAStool Occult Blood (Guaiac)on 05-41-8902Sszyv Occult Blood (Guaiac)Occult Blood Positive for Occult Blood by Guaiac Methodology Reference range = Negative PERFORMED BY: [place] [address] PATHOLOGIST [employer] FLORENCIO CORTEZ M.D.[facility] Physician GroupComment on above: Performed By: #### GLULS #### Point of Care testing ,Stool gastrointestinal hemoglobin detectionOrdered By: Mavis Gonzalez on 74-07-7097Rynweaydig.gastrointestinal Ql (Stl)[facility] Troponin I High Sensitivityon 73-39-9173Jxjhyldp I High Qajiqoipekj99Snwhyz3-28 [facility] Physician GroupComment on above:Result Comment: The Troponin units of report have been changed to meet the Chest Pain Accreditation requirement, element EC5.M1l2. Troponin units are changed from pg/ml to ng/L. Also, the decimal is removed and results are in whole numbers. PERFORMED BY: [place] [address] PATHOLOGIST [employer] FLORENCIO CORTEZ M.D.Performed By: #### BMP, CBC #### [facility] [address] [place] [address] USATroponin I High Gycfjsxytry13Rdwgca5-78[facility] [place] Physician [facility] HospitalComment on above:Result Comment: The Troponin units of report have been changed to meet the Chest Pain Accreditation requirement, element EC5.M1l2. Troponin units are changed from pg/ml to ng/L. Also, the decimal is removed and results are in whole numbers. PERFORMED BY: [place] [phone] PATHOLOGIST [employer] FLORENCIO CORTEZ M.D.Performed By: #### BMP, CBC #### [facility] [address] [place] [address] USATroponin I.cardiac [Mass/volume] in Serum or Plasma by Detection limit <= 0.01 ng/mLOrdered By: Mavis Gonzalez on 21-85-1218Vqgmhqyi I.cardiac DL <= 0.01 ng/mL [Mass/Vol]17 ng/L0-20The Bellevue HospitalComment on above:The Troponin units of report have been changed to meet the Chest Pain Accreditation requirement, element EC5.M1l2. Troponin units are changed from pg/ml to ng/L. Also, the decimal is removed and results are in whole numbers.Type and Screenon 66-16-6641FCF and Rh group Nom (Bld)Blood group O Rh(D) positiveNoFormerly [facility] Physician GroupUrea nitrogen [Mass/volume] in Serum or PlasmaOrdered By: Mavis Gonzalez on 33-88-6290Vdrv nitrogen [Mass/Vol]18 mg/dLNormal10-04The [facility]vue HospitalComment on above: Performed By: #### BMP, CBC #### [facility] [address] [place] [address] USAX-ray reportOrdered By: Dallas Mendoza on 71-84-8510Xxkfc reportTRINITY [facility] [address] [place] [id number] XRay Report Signed Patient: Jesse Garrison MR#: [id number] : 1950 Acct:[id number] Age/Sex: 74 / M ADM Date: 5 Loc: ER Room: Type: PRE ER Attending Dr: Copies to: MARY Kiran, PROVIDER~ Ordering Provider: Mavis Gonzalez APRN Date of Service: 12/05/24 XR/XR chest 2V*: Chest Pain PA AND LATERAL CHEST: CLINICAL HISTORY: Weakness, dizziness, shortness breath COMPARISON: 11/29/2024 FINDINGS: Unremarkable cardiomediastinal. Lungs clear. No effusion or pneumothorax. XR/XR chest 2V* IMPRESSION: NO ACUTE CARDIOPULMONARY ABNORMALITY. Impression dictated by: Dallas Mendoza M.D. 12/05/2024 3:16 PM Dictation Location: [place] [address] Transcribed By: ERICK 12/05/241515 Dictated By: Dallas Mendoza MD 12/05/241514 Signed By: 12/05/24 [facility] Work Phone: xr chest 2V*on 98-35-9810HT chest 2V*[facility] [address] [place] [place], [place] [id number] XRay Report Signed Patient: Jesse Garrison MR#: [id number] : 1950 Acct:[id number] Age/Sex: 74 / M ADM Date: 12/05/24 Loc: ER Room: Type: PRE ER Attending Dr: Copies to: MARY Kiran, PROVIDER Ordering Provider: Mavis Gonzalez APRN Date of Service: 12/05/24 XR/XR chest 2V*: Chest Pain PA AND LATERAL CHEST: CLINICAL HISTORY: Weakness, dizziness, shortness breath COMPARISON: 11/29/2024 FINDINGS: Unremarkable cardiomediastinal. Lungs clear. No effusion or pneumothorax. XR/XR chest 2V* IMPRESSION: NO ACUTE CARDIOPULMONARY ABNORMALITY. Impression dictated by: Dallas Mendoza M.D. 12/05/2024 3:16 PM Dictation Location: [facility]- Transcribed By: ERICK 12/05/241515 Dictated By: Dallas Mendoza MD 12/05/241514 Signed By: 12/05/24 151A[facility]ott Northwestern HospitalaPTT in Platelet poor plasma by Coagulation assayOrdered By: Mavis Gonzalez on 23-53-5615vKHK Coag (PPP) [Time] 27.2 s25.1-36.5FWooster Community HospitalComment on above:A hematocrit value greater than 55% may lead to inaccurate results in coagulation testing. Patientshaving hematocrit values >55% require a special collection tube for coagulation studies. Please contact the laboratory at [phone] for redraw instructions.Basic Metabolic Panelon 58-86-9763Gdayv gap [Moles/Vol]9.8 mmol/L Normal6.0-15.0The [facility]awr HospitalComment on above:Performed By: #### BMP, CBC ####[facility] [place] [address] USACalcium [Mass/Vol]8.6 mg/dLNormal8.6-10.3The [facility]awr HospitalComment on above:Performed By: #### BMP, CBC ####[facility] [address] [place] [address] USAChloride [Moles/Vol]105 mmol/FWsyaxf25-831Eab [facility]awr HospitalComment on above:Performed By: #### BMP, CBC ####[facility] [address] [place] [address] USACO2 [Moles/Vol]29.2 mmol/MQarbpl63.0-31.0The [facility] Physician GroupComment on above:Performed By: #### BMP, CBC ####[address] [address] USACreatinine [Mass/Vol]0.87 mg/dLNormal0.70-1.30The [facility] Physician GroupComment on above:Performed By: #### BMP, CBC ####[address] [address] [place] Creatinine Clr Calc Gypfffrj36.61NormalThe [facility] Physician GroupComment on above:Result Comment: PERFORMED BY: [facility] [address] [place] [address] PATHOLOGIST [employer] FLORENCIO CORTEZ M.D.Performed By: #### BMP, CBC ####[place] [address] USAGFR/1.73 sq M.predicted MDRD (S/P/Bld) [Vol rate/Area]mL/min/{1.73_m2}NormalThe [facility] Physician GroupComment on above:Performed By: #### BMP, CBC ####[place] [address] USAGlucose [Mass/Vol]139 mg/kYYtrf78-004Mry [facility] Physician GroupComment on above:Result Comment: Random Glucose Reference Range is dependent on time and content of last meal. Glucose of more than 200 mg/dL in a nonstressed, ambulatory subject supports the diagnosis of Diabetes Mellitus. ADA recommended reference rangePerformed By: #### BMP, CBC ####[place] [address] USAPotassium [Moles/Vol] 4.0 mmol/LNormal3.5-5.1The [facility] Physician GroupComment on above:Performed By: #### BMP, CBC ####[place] [address] USASodium [Moles/Vol]140 mmol/SWyyoxd282-131Tgs [facility] Physician GroupComment on above:Performed By: #### BMP, CBC ####[place] [address] USAUrea nitrogen [Mass/Vol]17 mg/dL Normal7-25The [facility] Physician GroupComment on above:Performed By: #### BMP, CBC ####[address] Complete Blood Count Auto Diffon 94-97-8381Clyqnwdii (Bld) [#/Vol]0.0 10*3/uL Normal0.0-0.2The [facility] Physician [facility] HospitalComment on above:Result Comment: PERFORMED BY: [facility] [address] [place] [address] PATHOLOGIST [employer] FLORENCIO CORTEZ M.D.Performed By: #### BMP, CBC ####[place] [address] USABasophils/100 WBC (Bld)0.2 %Normal.The [facility] Physician GroupComment on above:Performed By: #### BMP, CBC ####[address] Eosinophils (Bld) [#/Vol]0.3 10*3/uLNormal0.0-0.45The [facility] Physician Group Comment on above:Performed By: #### BMP, CBC ####[place] [address] USAEosinophils/100 WBC (Bld)3.9 %Normal. The [facility] Physician GroupComment on above:Performed By: #### BMP, CBC ####[address] Erythrocyte distribution width (RBC) [Ratio]13.3 %Yynkwv50.0-14.8The [facility] Physician GroupComment on above:Performed By: #### BMP, CBC ####[place] [address] USAHematocrit (Bld) [Volume fraction]22.5 %Low38.8-50.0The [facility] Physician [facility] HospitalComment on above:Performed By: #### BMP, CBC ####[place] [address] USAHemoglobin (Bld) [Mass/Vol]7.8 g/dLLow13.0-17.0The [facility] Physician GroupComment on above:Performed By: #### BMP, CBC ####[place] [address] [place] Lymphocytes (Bld) [#/Vol]1.8 10*3/uLNormal1.00-4.8The [facility] Physician Group Comment on above:Performed By: #### BMP, CBC ####[place] [address] USALymphocytes/100 WBC (Bld)23.6 %Normal. The [facility] Physician GroupComment on above:Performed By: #### BMP, CBC ####[address] StreetMCH (RBC) [Entitic mass]30.9 mcUnskna82.5-35.2The [facility] Physician GroupComment on above:Performed By: #### BMP, CBC ####[place] [address] USAMCV (RBC) [Entitic vol]88.8 uYBpxtzw31.5-101 The [facility] Physician GroupComment on above:Performed By: #### BMP, CBC ####[place] [address] USAMean Corpuscular HGB Conc34.8 g/yFApmrcj25.5-35.6The [facility] Physician GroupComment on above:Performed By: #### BMP, CBC ####[place] [address] USAMonocytes (Bld) [#/Vol]0.4 10*3/uLNormal 0.0-0.8The [facility] Physician GroupComment on above:Performed By: #### BMP, CBC ####[place] [address] USA Monocytes/100 WBC (Bld)5.2 %Normal.The [facility] Physician GroupComment on above:Performed By: #### BMP, CBC ####[place] [address] [place] [address] USANeutrophils (Bld) [#/Vol]5.0 10*3/uLNormal1.8-7.7The [facility] Physician GroupComment on above:Performed By: #### BMP, CBC ####[address] [address] [place] Neutrophils/100 WBC (Bld)67.1 %Normal.The [facility] Physician GroupComment on above:Performed By: #### BMP, CBC ####[address] [address] USANRBC%0.4 /100{WBC}Normal0-0.5The [facility] Physician GroupComment on above:Performed By: #### BMP, CBC ####[address] [address] USAPlatelet mean volume (Bld) [Entitic vol]7.5 fLNormal6.6-10.1The [facility] Physician GroupComment on above: Performed By: #### BMP, CBC ####[address] [address] USAPlatelets (Bld) [#/Vol]296 10*3/xXNukenr176-655Czf [facility] Physician GroupComment on above:Performed By: #### BMP, CBC ####[address] [address] USARBC (Bld) [#/Vol]2.53 10*6/uLLow3.90-5.60The [facility] Physician GroupComment on above:Performed By: #### BMP, CBC ####[address] [address] USAWBC (Bld) [#/Vol]7.5 10*3/uLNormal4.1-10.5The [facility] Physician GroupComment on above:Performed By: #### BMP, CBC ####[address] [address] USAWhite Blood Count7.5 [CFU]/mLNormal4.1-10.5The [facility] Physician GroupComment on above:Performed By: #### BMP, CBC ####[facility] [address] [place] [address] USAGlucose Poct Glucometerson 09-50-9092Xbzyuaj [Mass/Vol]255 mg/dLNoFormerly [facility] Physician GroupComment on above:Result Comment: Random Glucose Reference Range is dependent on time and content of last meal. Glucose of more than 200 mg/dL in a nonstressed, ambulatory subject supports the diagnosis of Diabetes Mellitus. PERFORMED BY: [place] [address] PATHOLOGIST [employer] FLORENCIO CORTEZ M.D.Performed By: #### GLULS ####Point of Care testing,Glucose [Mass/Vol]170 mg/dLNoFormerly [facility] Physician GroupComment on above:Result Comment: Random Glucose Reference Range is dependent on time and content of last meal. Glucose of more than 200 mg/dL in a nonstressed, ambulatory subject supports the diagnosis of Diabetes Mellitus. PERFORMED BY: [place] [address] PATHOLOGIST [employer] FLORENCIO CORTEZ M.D.Performed By: #### BMP, CBC #### [place] [id number] USABasic Metabolic Panelon 77-88-4085Qaaks gap [Moles/Vol]8.9 mmol/LNormal6.0-15.0The [facility] Physician GroupComment on above:Performed By: #### BMP, CBC #### [place] [address] USACalcium [Mass/Vol]8.4 mg/dLLow8.6-10.3The [facility] Physician GroupComment on above:Performed By: #### BMP, CBC #### [place] [address] USAChloride [Moles/Vol]107 mmol/DGnthaa79-043Inq [facility] Physician GroupComment on above:Performed By: #### BMP, CBC #### [place] [address] USACO2 [Moles/Vol]27.3 mmol/PQrcxrg19.0-31.0The [facility] Physician GroupComment on above:Performed By: #### BMP, CBC #### [place] [address] USACreatinine [Mass/Vol]0.81 mg/dLNormal0.70-1.30The [facility] Physician GroupComment on above:Performed By: #### BMP, CBC #### [place] [address] USACreatinine Clr Calc Hdolxobm02.01NormalThe [facility] Physician GroupComment on above:Result Comment: PERFORMED BY: [place] [address] PATHOLOGIST [employer] FLORENCIO CORTEZ M.D.Performed By: #### BMP, CBC #### [place] [address] USAGFR/1.73 sq M.predicted MDRD (S/P/Bld) [Vol rate/Area] mL/min/{1.73_m2}NormalThe [facility] Physician [facility] HospitalComment on above:Performed By: #### BMP, CBC #### [place] [address] USAGlucose [Mass/Vol]126 mg/nQHegd22-300Zhm [facility] Physician GroupComment on above:Result Comment: Random Glucose Reference Range is dependent on time and content of last meal. Glucose of more than 200 mg/dL in a nonstressed, ambulatory subject supports the diagnosis of Diabetes Mellitus. ADA recommended reference rangePerformed By: #### BMP, CBC #### [place] [address] USAPotassium [Moles/Vol]4.2 mmol/LNormal3.5-5.1The [facility] Physician GroupComment on above:Performed By: #### BMP, CBC #### [place] [address] USASodium [Moles/Vol]139 mmol/EBmdjqs075-768Fse [facility] Physician GroupComment on above:Performed By: #### BMP, CBC #### [facility] [address] [place] [address] USAUrea nitrogen [Mass/Vol]13 mg/dLNormal7-25The [facility] Physician GroupComment on above:Performed By: #### BMP, CBC #### [place] [address] USAComplete Blood Count Auto Diffon 56-87-1095Ssfktfugf (Bld) [#/Vol]0.0 10*3/uLNormal0.0-0.2The [facility] Physician GroupComment on above: Result Comment: PERFORMED BY: [place] [address] PATHOLOGIST [employer] FLORENCIO CORTEZ M.D.Performed By: #### BMP, CBC #### [place] [address] USABasophils/100 WBC (Bld)0.4 %Normal.The [facility] Physician GroupComment on above:Performed By: #### BMP, CBC #### [place] [address] USAEosinophils (Bld) [#/Vol]0.3 10*3/uLNormal0.0-0.45The [facility] Physician GroupComment on above:Performed By: #### BMP, CBC #### [place] [address] USAEosinophils/100 WBC (Bld)3.7 %Normal.The [facility] Physician GroupComment on above:Performed By: #### BMP, CBC #### [place] [address] USAErythrocyte distribution width (RBC) [Ratio]13.1 %Normal 12.0-14.8The [facility] Physician GroupComment on above:Performed By: #### BMP, CBC #### [place] [address] USAHematocrit (Bld) [Volume fraction]21.4 %Low38.8-50.0The [facility] Physician GroupComment on above:Performed By: #### BMP, CBC #### [facility] [address] [place] [address] USAHemoglobin (Bld) [Mass/Vol]7.4 g/dLLow13.0-17.0The [facility] Physician GroupComment on above:Performed By: #### BMP, CBC #### [place] [address] USALymphocytes (Bld) [#/Vol]1.8 10*3/uLNormal1.00-4.8The [facility] Physician GroupComment on above:Performed By: #### BMP, CBC #### [place] [address] USALymphocytes/100 WBC (Bld)25.4 %Normal.The [facility] Physician GroupComment on above:Performed By: #### BMP, CBC #### [place] [address] USAMCH (RBC) [Entitic mass]30.7 khAvegvu52.5-35.2The [facility] Physician GroupComment on above:Performed By: #### BMP, CBC #### [place] [address] USAMCV (RBC) [Entitic vol]88.7 jCTbvsau79.5-101The [facility] Physician GroupComment on above:Performed By: #### BMP, CBC #### [place] [address] USAMean Corpuscular HGB Conc34.6 g/aGRzbtrq10.5-35.6The [facility] Physician GroupComment on above:Performed By: #### BMP, CBC #### [place] [address] USAMonocytes (Bld) [#/Vol]0.4 10*3/uLNormal0.0-0.8The [facility] Physician GroupComment on above:Performed By: #### BMP, CBC #### [place] [address] USAMonocytes/100 WBC (Bld)5.1 %Normal.The [facility] Physician GroupComment on above:Performed By: #### BMP, CBC #### [facility] [address] [place] [address] USANeutrophils (Bld) [#/Vol]4.6 10*3/uLNormal1.8-7.7The [facility] Physician GroupComment on above:Performed By: #### BMP, CBC #### [facility] [address] [place] [address] USANeutrophils/100 WBC (Bld)65.4 %Normal.The [facility] Physician GroupComment on above:Performed By: #### BMP, CBC #### [facility] [address] [place] [address] USANRBC%0.2 /100{WBC}Normal0-0.5The [facility] Physician Group Comment on above:Performed By: #### BMP, CBC #### [facility] [address] [place] [address] USAPlatelet mean volume (Bld) [Entitic vol]7.2 fLNormal 6.6-10.1The [facility] Physician GroupComment on above:Performed By: #### BMP, CBC #### [place] [address] USAPlatelets (Bld) [#/Vol]253 10*3/pUErtcbz747-547Eqv [facility] Physician GroupComment on above:Performed By: #### BMP, CBC #### [facility] [address] [place] [address] USARBC (Bld) [#/Vol]2.41 10*6/uLLow3.90-5.60The [facility] Physician GroupComment on above:Performed By: #### BMP, CBC #### [facility] [address] [place] [address] USAWBC (Bld) [#/Vol]7.1 10*3/uLNormal4.1-10.5The [facility] Physician GroupComment on above:Performed By: #### BMP, CBC #### [place] [address] USAWhite Blood Count7.1 [CFU]/mLNormal4.1-10.5The [facility] Physician GroupComment on above:Performed By: #### BMP, CBC #### [place] [address] USAGlucose Poct Glucometerson 51-83-9202Fyvcqsj8Wwa5: Cleaned MeterNoFormerly [facility] Physician [facility] HospitalComment on above:Result Comment: PERFORMED BY: [place] [address] PATHOLOGIST [employer] FLORENCIO CORTEZ M.D.Performed By: #### BMP, CBC #### [place] [address] USAGlucose [Mass/Vol]184 mg/dLNoFormerly [facility] Physician [facility] HospitalComment on above:Result Comment: Random Glucose Reference Range is dependent on time and content of last meal. Glucose of more than 200 mg/dL in a nonstressed, ambulatory subject supports the diagnosis of Diabetes Mellitus.Performed By: #### BMP, CBC #### [place] [address] USAGlucose [Mass/Vol]211 mg/dLNoFormerly [facility] Physician [facility] HospitalComment on above:Result Comment: Random Glucose Reference Range is dependent on time and content of last meal. Glucose of more than 200 mg/dL in a nonstressed, ambulatory subject supports the diagnosis of Diabetes Mellitus. PERFORMED BY: [place] [address] PATHOLOGIST [employer] FLORENCIO CORTEZ M.D.Performed By: #### GLULS #### Point of Care testing ,Glucose [Mass/Vol]329 mg/dLHCA Florida Brandon Hospital Physician GroupComment on above: Result Comment: Random Glucose Reference Range is dependent on time and content of last meal. Glucose of more than 200 mg/dL in a nonstressed, ambulatory subject supports the diagnosis of Diabetes Mellitus. PERFORMED BY: [place] [address] PATHOLOGIST [employer] FLORENCIO CORTEZ M.D.Performed By: #### GLULS #### Point of Care testing ,Sonido 12-02-2024 Specimen: [id number] Received: 12/02/24 Status: DEBI Thomas Num: [id number] Spec Type: Surgical Subm Dr: Mane Sommer MD Tissues: A Gastric Biopsy (GASTRIC BX) Procedures: HE/2, Gross/Micro L4, CHROM A, H PYLORI, IHC First AB, IHC Add AB Age/ Patient Sex Location Account Attending Physician Jesse Garrison/M 4P [id number] Ann Torres MD SPEC NUM: [id number] RECD: 12/02/24 STATUS: DEBI THOMAS NUM: [id number] KENIA: 12/02/24 [facility] DR: Mane Sommer MD ENTERED: 12/02/24 [facility] DR: SPEC TYPE: Surgical DEPT: S ENTERED BY: [id number] RECV BY: [id number] ORDERED: HE/2, Gross/Micro L4, CHROM A, H [...] submitted in a single cassette. (1, ns, [id number]) Microscopic Description Immunohistochemical stain for Helicobacter pylori is interpreted as negative. Chromogranin is interpreted as negative for neuroendocrine hyperplasia. CPT Codes 55091 [id number] Specimen: [id number] Received: 12/02/24 Status: DEBI Thomas Num: [id number] Spec Type: Surgical Subm Dr: Mane Sommer MD Tissues: A Gastric Biopsy (GASTRIC BX) Procedures: HE/2, Gross/Micro L4, CHROM A, H PYLORI, IHC First AB, IHC Add AB Patient: Jesse Garrison [id number] (Continued) Signed (signature on file) Bright Aguillon JR, MD 12/05/[address] [place] [address] Physician GroupBasic Metabolic Panelon 13-42-2288Yqqdw gap [Moles/Vol]8.3 mmol/LNormal6.0-15.0The [facility] Physician GroupComment on above:Performed By: #### BMP, CBC #### [facility] [address] [place] [address] USACalcium [Mass/Vol]8.4 mg/dLLow8.6-10.3The [facility] Physician GroupComment on above:Performed By: #### BMP, CBC #### [facility] [address] [place] [id number] USAChloride [Moles/Vol]105 mmol/ESeyxsa74-365Ffi [facility] Physician GroupComment on above:Performed By: #### BMP, CBC #### [facility] [address] [place] [address] USACO2 [Moles/Vol]28.9 mmol/EXedzts28.0-31.0The [facility] Physician GroupComment on above:Performed By: #### BMP, CBC #### [place] [address] USACreatinine [Mass/Vol]0.83 mg/dLNormal0.70-1.30The [facility] Physician GroupComment on above:Performed By: #### BMP, CBC #### [place] [address] USACreatinine Clr Calc Yiaaionu85.82NormalThe [facility] Physician GroupComment on above:Result Comment: PERFORMED BY: [place] [address] PATHOLOGIST [employer] FLORENCIO CORTEZ M.D.Performed By: #### BMP, CBC #### [place] [address] USAGFR/1.73 sq M.predicted MDRD (S/P/Bld) [Vol rate/Area] mL/min/{1.73_m2}NormalThe [facility] Physician GroupComment on above:Performed By: #### BMP, CBC #### [place] [address] USAGlucose [Mass/Vol]130 mg/oYJrsv06-551Ngo [facility] Physician GroupComment on above:Result Comment: Random Glucose Reference Range is dependent on time and content of last meal. Glucose of more than 200 mg/dL in a nonstressed, ambulatory subject supports the diagnosis of Diabetes Mellitus. ADA recommended reference rangePerformed By: #### BMP, CBC #### [place] [address] USAPotassium [Moles/Vol]4.2 mmol/LNormal3.5-5.1The [facility] Physician GroupComment on above:Performed By: #### BMP, CBC #### [place] [address] USASodium [Moles/Vol]138 mmol/ACpouge058-589Vdk [facility] Physician GroupComment on above:Performed By: #### BMP, CBC #### [place] [address] USAUrea nitrogen [Mass/Vol]20 mg/dLNormal7-25The [facility] Physician GroupComment on above:Performed By: #### BMP, CBC #### [place] [address] USAComplete Blood Count Auto Diffon [id number] (Bld) [#/Vol]0.0 10*3/uLNormal0.0-0.2The [facility] Physician GroupComment on above: Result Comment: PERFORMED BY: [place] [address] PATHOLOGIST [employer] FLORENCIO CORTEZ M.D.Performed By: #### BMP, CBC #### [place] [address] USABasophils/100 WBC (Bld)0.5 %Normal.The [facility] Physician GroupComment on above:Performed By: #### BMP, CBC #### [place] [address] USAEosinophils (Bld) [#/Vol]0.3 10*3/uLNormal0.0-0.45The [facility] Physician GroupComment on above:Performed By: #### BMP, CBC #### [place] [address] USAEosinophils/100 WBC (Bld)3.8 %Normal.The [facility] Physician GroupComment on above:Performed By: #### BMP, CBC #### [place] [address] USAErythrocyte distribution width (RBC) [Ratio]12.5 %Normal 12.0-14.8The [facility] Physician GroupComment on above:Performed By: #### BMP, CBC #### [place] [address] USAHematocrit (Bld) [Volume fraction]19.9 %Off scale low 38.8-50.0The [facility] Physician GroupComment on above:Result Comment: Critical value result called at 0542 on 12/01/24Performed By: #### BMP, CBC #### [place] [address] USAHemoglobin (Bld) [Mass/Vol]6.9 g/dLLow13.0-17.0The [facility] Physician GroupComment on above:Performed By: #### BMP, CBC #### [place] [address] USALymphocytes (Bld) [#/Vol]1.9 10*3/uLNormal1.00-4.8The [facility] Physician GroupComment on above:Performed By: #### BMP, CBC #### [place] [address] USALymphocytes/100 WBC (Bld)23.5 %Normal.The [facility] Physician GroupComment on above:Performed By: #### BMP, CBC #### [place] [address] USAMCH (RBC) [Entitic mass]30.5 xgDrifuh29.5-35.2The [facility] Physician GroupComment on above:Performed By: #### BMP, CBC #### [place] [address] USAMCV (RBC) [Entitic vol]87.5 hKGlzgdp23.5-101The [facility] Physician GroupComment on above:Performed By: #### BMP, CBC #### [place] [address] USAMean Corpuscular HGB Conc34.8 g/tWGbdndr69.5-35.6The [facility] Physician GroupComment on above:Performed By: #### BMP, CBC #### [place] [address] USAMonocytes (Bld) [#/Vol]0.4 10*3/uLNormal0.0-0.8The [facility] Physician GroupComment on above:Performed By: #### BMP, CBC #### [place] [address] USAMonocytes/100 WBC (Bld)5.0 %Normal.The [facility] Physician GroupComment on above:Performed By: #### BMP, CBC #### [facility] [address] [place] [address] USANeutrophils (Bld) [#/Vol]5.3 10*3/uLNormal1.8-7.7The [facility] Physician GroupComment on above:Performed By: #### BMP, CBC #### [facility] [address] [place] [address] USANeutrophils/100 WBC (Bld)67.2 %Normal.The [facility] Physician GroupComment on above:Performed By: #### BMP, CBC #### [facility] [address] [place] [address] USANRBC%0.1 /100{WBC}Normal0-0.5The [facility] Physician Group Comment on above:Performed By: #### BMP, CBC #### [facility] [address] [place] [address] USAPlatelet mean volume (Bld) [Entitic vol]7.5 fLNormal 6.6-10.1The [facility] Physician GroupComment on above:Performed By: #### BMP, CBC #### [facility] [address] [place] [address] USAPlatelets (Bld) [#/Vol]252 10*3/zPJlpjle691-380Ale [facility] Physician GroupComment on above:Performed By: #### BMP, CBC #### [facility] [address] [place] [address] USARBC (Bld) [#/Vol]2.27 10*6/uLLow3.90-5.60The [facility] Physician GroupComment on above:Performed By: #### BMP, CBC #### [facility] [address] [place] [address] USAWBC (Bld) [#/Vol]7.9 10*3/uLNormal4.1-10.5The [facility] Physician GroupComment on above:Performed By: #### BMP, CBC #### [facility] [address] [place] [address] USAWhite Blood Count7.9 [CFU]/mLNormal4.1-10.5The [place] Physician GroupComment on above:Performed By: #### BMP, CBC #### [facility] [address] [place] [address] USAGlucose Poct Glucometerson 13-53-2632Zmwjrsg [Mass/Vol]180 mg/dLNoFormerly [facility] Physician GroupComment on above:Result Comment: Random Glucose Reference Range is dependent on time and content of last meal. Glucose of more than 200 mg/dL in a nonstressed, ambulatory subject supports the diagnosis of Diabetes Mellitus. PERFORMED BY: [place] [address] PATHOLOGIST [employer] FLORENCIO CORTEZ M.D.Performed By: #### GLULS #### Point of Care testing ,Glucose [Mass/Vol]181 mg/dLNoFormerly [facility] Physician GroupComment on above: Result Comment: Random Glucose Reference Range is dependent on time and content of last meal. Glucose of more than 200 mg/dL in a nonstressed, ambulatory subject supports the diagnosis of Diabetes Mellitus. PERFORMED BY: [place] [id number] PATHOLOGIST [employer] FLORENCIO CORTEZ M.D.Performed By: #### BMP, CBC #### [place] [address] USAGlucose [Mass/Vol]198 mg/dLNoFormerly [facility] Physician GroupComment on above:Result Comment: Random Glucose Reference Range is dependent on time and content of last meal. Glucose of more than 200 mg/dL in a nonstressed, ambulatory subject supports the diagnosis of Diabetes Mellitus. PERFORMED BY: [address] [address] PATHOLOGIST [employer] FLORENCIO CORTEZ M.D.Performed By: #### GLULS #### Point of Care testing ,Glucose [Mass/Vol]167 mg/dLNoFormerly [facility] Physician GroupComment on above: Result Comment: Random Glucose Reference Range is dependent on time and content of last meal. Glucose of more than 200 mg/dL in a nonstressed, ambulatory subject supports the diagnosis of Diabetes Mellitus. PERFORMED BY: [address] [address] PATHOLOGIST [employer] FLORENCIO CORTEZ M.D.Performed By: #### GLULS #### Point of Care testing ,Basic Metabolic Panelon 96-03-1498Flidv gap [Moles/Vol]8.0 mmol/LNormal6.0-15.0 The [facility] Physician GroupComment on above:Performed By: #### GLULS #### Point of Care testing ,Calcium [Mass/Vol]8.2 mg/dLLow8.6-10.3The [facility] Physician GroupComment on above:Performed By: #### GLULS #### Point of Care testing ,Chloride [Moles/Vol]107 mmol/ROantip43-112Ggh [facility] Physician GroupComment on above:Performed By: #### GLULS #### Point of Care testing ,CO2 [Moles/Vol]27.2 mmol/ZZvtieq80.0-31.0The [facility] Physician GroupComment on above:Performed By: #### GLULS #### Point of Care testing ,Creatinine [Mass/Vol]0.81 mg/dLNormal0.70-1.30The [facility] Physician Group Comment on above:Performed By: #### GLULS #### Point of Care testing ,Creatinine Clr Calc Uzrricsg63.29NormalThe [facility] Physician GroupComment on above:Result Comment: PERFORMED BY: [address] [address] PATHOLOGIST [employer] FLORENCIO CORTEZ M.D.Performed By: #### GLULS #### Point of Care testing ,GFR/1.73 sq M.predicted MDRD (S/P/Bld) [Vol rate/Area]mL/min/{1.73_m2}NormalThe [facility] Physician GroupComment on above:Performed By: #### GLULS #### Point of Care testing ,Glucose [Mass/Vol]112 mg/iUFdlj18-280Cag [facility] Physician GroupComment on above:Result Comment: Random Glucose Reference Range is dependent on time and content of last meal. Glucose of more than 200 mg/dL in a nonstressed, ambulatory subject supports the diagnosis of Diabetes Mellitus. ADA recommended reference rangePerformed By: #### GLULS #### Point of Care testing ,Potassium [Moles/Vol]4.2 mmol/LNormal3.5-5.1The [facility] Physician Group Comment on above:Performed By: #### GLULS #### Point of Care testing ,Sodium [Moles/Vol]138 mmol/KGtikgl114-298Idb [facility] Physician GroupComment on above:Performed By: #### GLULS #### Point of Care testing ,Urea nitrogen [Mass/Vol]28 mg/dLHigh7-25The [facility] Physician GroupComment on above:Performed By: #### GLULS #### Point of Care testing ,Complete Blood Count Auto Diffon 29-52-3912Vjzfnxkvv (Bld) [#/Vol]0.0 10*3/uL Normal0.0-0.2The [facility] Physician GroupComment on above:Order Comment: FIRST SPECIMEN QUESTIONABLEResult Comment: PERFORMED BY: [place] [address] PATHOLOGIST [employer] FLORENCIO CORTEZ M.D.Performed By: #### BMP, CBC #### [facility] [address] [place] [address] USABasophils/100 WBC (Bld)0.4 %Normal.The [facility] Physician GroupComment on above:Order Comment: FIRST SPECIMEN QUESTIONABLEPerformed By: #### BMP, CBC #### [facility] [address] [place] [address] USAEosinophils (Bld) [#/Vol]0.4 10*3/uLNormal0.0-0.45The [facility] Physician GroupComment on above:Order Comment: FIRST SPECIMEN QUESTIONABLEPerformed By: #### BMP, CBC #### [facility] [address] [place] [address] USAEosinophils/100 WBC (Bld)4.4 %Normal.The [facility] Physician GroupComment on above:Order Comment: FIRST SPECIMEN QUESTIONABLE Performed By: #### BMP, CBC #### [facility] [address] [place] [id number] USAErythrocyte distribution width (RBC) [Ratio]12.5 %Normal 12.0-14.8The [facility] Physician GroupComment on above:Order Comment: FIRST SPECIMEN QUESTIONABLEPerformed By: #### BMP, CBC #### [place] [address] USAHematocrit (Bld) [Volume fraction]19.6 %Off scale low 38.8-50.0The [facility] Physician GroupComment on above:Order Comment: FIRST SPECIMEN QUESTIONABLEResult Comment: Critical value result called at 0644 on 11/30/24Performed By: #### BMP, CBC #### [place] [address] USAHemoglobin (Bld) [Mass/Vol]6.8 g/dLLow13.0-17.0The [facility] Physician GroupComment on above:Order Comment: FIRST SPECIMEN QUESTIONABLEPerformed By: #### BMP, CBC #### [place] [address] USALymphocytes (Bld) [#/Vol]2.0 10*3/uLNormal1.00-4.8The [facility] Physician GroupComment on above:Order Comment: FIRST SPECIMEN QUESTIONABLEPerformed By: #### BMP, CBC #### [place] [id number] USALymphocytes/100 WBC (Bld)23.3 %Normal.The [facility] Physician GroupComment on above:Order Comment: FIRST SPECIMEN QUESTIONABLE Performed By: #### BMP, CBC #### [place] [id number] USAMCH (RBC) [Entitic mass]29.9 otIewlbd27.5-35.2The [facility] Physician GroupComment on above:Order Comment: FIRST SPECIMEN QUESTIONABLEPerformed By: #### BMP, CBC #### [place] [id number] USAMCV (RBC) [Entitic vol]86.7 gFKuozqs17.5-101The [facility] Physician GroupComment on above:Order Comment: FIRST SPECIMEN QUESTIONABLE Performed By: #### BMP, CBC #### [place] [address] USAMean Corpuscular HGB Conc34.5 g/yPNvwktj40.5-35.6The [facility] Physician GroupComment on above:Order Comment: FIRST SPECIMEN QUESTIONABLEPerformed By: #### BMP, CBC #### [place] [address] USAMonocytes (Bld) [#/Vol]0.4 10*3/uLNormal0.0-0.8The [facility] Physician GroupComment on above:Order Comment: FIRST SPECIMEN QUESTIONABLEPerformed By: #### BMP, CBC #### [place] [address] USAMonocytes/100 WBC (Bld)4.2 %Normal.The [facility] Physician GroupComment on above:Order Comment: FIRST SPECIMEN QUESTIONABLEPerformed By: #### BMP, CBC #### [place] [address] USANeutrophils (Bld) [#/Vol]5.8 10*3/uLNormal1.8-7.7The [facility] Physician GroupComment on above:Order Comment: FIRST SPECIMEN QUESTIONABLEPerformed By: #### BMP, CBC #### [place] [address] USANeutrophils/100 WBC (Bld)67.7 %Normal.The [facility] Physician GroupComment on above:Order Comment: FIRST SPECIMEN QUESTIONABLE Performed By: #### BMP, CBC #### [place] [address] USANRBC%0.1 /100{WBC}Normal0-0.5The [facility]ician Group Comment on above:Order Comment: FIRST SPECIMEN QUESTIONABLEPerformed By: #### BMP, CBC #### [place] [address] USAPlatelet mean volume (Bld) [Entitic vol]7.2 fLNormal 6.6-10.1The [facility] Physician GroupComment on above:Order Comment: FIRST SPECIMEN QUESTIONABLEPerformed By: #### BMP, CBC #### [facility] [address] [place] [address] USAPlatelets (Bld) [#/Vol]253 10*3/eAMzqukw610-741Jqt [facility] Physician GroupComment on above:Order Comment: FIRST SPECIMEN QUESTIONABLEPerformed By: #### BMP, CBC #### [place] [address] USARBC (Bld) [#/Vol]2.26 10*6/uLLow3.90-5.60The [facility] Physician GroupComment on above:Order Comment: FIRST SPECIMEN QUESTIONABLE Performed By: #### BMP, CBC #### [place] [address] USAWBC (Bld) [#/Vol]8.6 10*3/uLNormal4.1-10.5The [facility] Physician GroupComment on above:Order Comment: FIRST SPECIMEN QUESTIONABLE Performed By: #### BMP, CBC #### [place] [address] USAWhite Blood Count8.6 [CFU]/mLNormal4.1-10.5The [facility] Physician GroupComment on above:Order Comment: FIRST SPECIMEN QUESTIONABLE Performed By: #### BMP, CBC #### [place] [address] USAGlucose Poct Glucometerson 67-70-4852Rtlafuj [Mass/Vol]133 mg/dLNormBartow [facility] Center Physician GroupComment on above:Result Comment: Random Glucose Reference Range is dependent on time and content of last meal. Glucose of more than 200 mg/dL in a nonstressed, ambulatory subject supports the diagnosis of Diabetes Mellitus. PERFORMED BY: [place] [address] PATHOLOGIST [employer] FLORENCIO CORTEZ M.D.Performed By: #### GLULS #### Point of Care testing ,Glucose [Mass/Vol]228 mg/dLNoFormerly [facility] Physician GroupComment on above: Result Comment: Random Glucose Reference Range is dependent on time and content of last meal. Glucose of more than 200 mg/dL in a nonstressed, ambulatory subject supports the diagnosis of Diabetes Mellitus. PERFORMED BY: [place] [address] PATHOLOGIST [employer] FLORENCIO CORTEZ M.D.Performed By: #### GLULS #### Point of Care testing ,Glucose [Mass/Vol]227 mg/dLNoFormerly [facility] Physician GroupComment on above: Result Comment: Random Glucose Reference Range is dependent on time and content of last meal. Glucose of more than 200 mg/dL in a nonstressed, ambulatory subject supports the diagnosis of Diabetes Mellitus. PERFORMED BY: [place] [address] PATHOLOGIST [employer] FLORENCIO CORTEZ M.D.Performed By: #### GLULS #### Point of Care testing ,Glucose [Mass/Vol]174 mg/dLNoFormerly [facility] Physician GroupComment on above: Result Comment: Random Glucose Reference Range is dependent on time and content of last meal. Glucose of more than 200 mg/dL in a nonstressed, ambulatory subject supports the diagnosis of Diabetes Mellitus. PERFORMED BY: [place] [address] PATHOLOGIST [employer] FLORENCIO CORTEZ M.D.Performed By: #### GLULS ####Point of Care testing, Hemoglobin and Hematocriton 84-46-0116Nogpobodbk (Bld) [Volume fraction]21.0 % Low38.8-50.0The [facility] Physician GroupComment on above:Result Comment: PERFORMED BY: [place] [address] PATHOLOGIST [employer] FLORENCIO COTREZ M.D.Performed By: #### BMP, CBC #### [place] [address] USAHemoglobin (Bld) [Mass/Vol]7.2 g/dLLow13.0-17.0The [facility] Physician GroupComment on above:Performed By: #### BMP, CBC #### [place] [address] USAHematocrit (Bld) [Volume fraction]21.9 %Low38.8-50.0The [facility] Physician GroupComment on above:Result Comment: PERFORMED BY: [address] [place] [address] PATHOLOGIST [employer] FLORENCIO CORTEZ M.D.Performed By: #### GLULS #### Point of Care testing ,Hemoglobin (Bld) [Mass/Vol]7.5 g/dLLow13.0-17.0The [facility]ician Group Comment on above:Performed By: #### GLULS #### Point of Care testing ,B-Type Natriuretic Peptideon 40-36-5629Fyraysuuidr peptide B (Bld) [Mass/Vol] 8.0 pg/mLNormal5-100The [facility] Physician GroupComment on above:Result Comment: PERFORMED BY: [address] [place] [address] PATHOLOGIST [employer] FLORENCIO CORTEZ M.D.Performed By: #### BMP, BNP, CBC, HS TROP ####[address] [address] USABasic Metabolic Panel on 27-09-6352Elvxh gap [Moles/Vol]10.4 mmol/LNormal6.0-15.0The [facility] Physician GroupComment on above:Performed By: #### BMP, BNP, CBC, HS TROP ####[address] [address] USACalcium [Mass/Vol]8.5 mg/dLLow8.6-10.3The [facility] Physician GroupComment on above: Performed By: #### BMP, BNP, CBC, HS TROP ####[place] [address] [place] [address] USAChloride [Moles/Vol]107 mmol/XLdxsol13-527Mwe [facility] Physician GroupComment on above:Performed By: #### BMP, BNP, CBC, HS TROP ####[address] [address] [place] CO2 [Moles/Vol]24.9 mmol/GJygrtl81.0-31.0The [facility] Physician GroupComment on above:Performed By: #### BMP, BNP, CBC, HS TROP ####[place] [address] [place] [address] USACreatinine [Mass/Vol]0.85 mg/dLNormal 0.70-1.30The [facility] Physician GroupComment on above:Performed By: #### BMP, BNP, CBC, HS TROP ####[place] [address] USACreatinine Clr Calc Jrhkelqe32.55NormBartow Regional [facility] Center Physician Group Comment on above:Result Comment: PERFORMED BY: [facility] [address] [facility]ENTERZeeshanMART[address] [id number] PATHOLOGIST [employer] FLORENCIO CORTEZ M.D.Performed By: #### BMP, BNP, CBC, HS TROP ####[place] [id number] USAGFR/1.73 sq M.predicted MDRD (S/P/Bld) [Vol rate/Area]mL/min/{1.73_m2}NormalThe [facility] Physician GroupComment on above:Performed By: #### BMP, BNP, CBC, HS TROP ####[address] [address] USAGlucose [Mass/Vol]161 mg/vKAwgy01-013Lxo [facility] Physician GroupComment on above: Result Comment: Random Glucose Reference Range is dependent on time and content of last meal. Glucose of more than 200 mg/dL in a nonstressed, ambulatory subject supports the diagnosis of Diabetes Mellitus. ADA recommended reference rangePerformed By: #### BMP, BNP, CBC, HS TROP ####[address] [address] [place] Potassium [Moles/Vol]4.3 mmol/LNormal3.5-5.1The [facility] Physician GroupComment on above:Performed By: #### BMP, BNP, CBC, HS TROP ####[address] [address] USASodium [Moles/Vol]138 mmol/L Udaawi015-345Fvv [facility] Physician GroupComment on above:Performed By: #### BMP, BNP, CBC, HS TROP ####[facility] [address] [place] [address] [facility] CENTERUrea nitrogen [Mass/Vol]46 mg/dLHigh7-25The [facility] Physician GroupComment on above:Performed By: #### BMP, BNP, CBC, HS TROP ####[facility] [address] [place] [address] [facility] COVID-19 / Flu A/B / RSV PCRon 24-14-3851BEEW-CoV-2 (COVID-19) RNA ITA+probe Ql (Unsp spec)COVID-19 Cepheid Result Negative for SARS-CoV-2 RNA by [...] or Cepheid Disclaimer revoked sooner. PERFORMED BY: [address] [id number] PATHOLOGIST [employer] FLORENCIO CORTEZ M.D.NormalThe [facility] Physician GroupComment on above: Performed By: #### GLULS #### Point of Care testing ,Cepheid COVID PCR Negativeon 23-12-0197GUXC-CoV-2 (COVID-19) RNA ITA+probe Ql (Unsp spec)NegativeNormalNegativeThe [facility] Physician GroupComment on above: Result Comment: This is a duplicate Cepheid Xpert Xpress CoV-2/Flu/RSV Plus RNA by RT-PCR result to be used for statistical tracking purpose only. PERFORMED BY: [address] [address] PATHOLOGIST [employer] FLORENCIO CORTEZ M.D.Performed By: #### GLULS #### Point of Care testing ,Complete Blood Count Auto Diffon 05-46-0477Nmfcdpwyt (Bld) [#/Vol]0.1 10*3/uL Normal0.0-0.2The [facility] Physician GroupComment on above:Result Comment: PERFORMED BY: [address] [place] [address] PATHOLOGIST [employer] FLORENCIO CORTEZ M.D.Performed By: #### BMP, BNP, CBC, HS TROP ####[place] [address] [place], [place] [address] USABasophils/100 WBC (Bld)0.5 %Normal.The [facility] Physician GroupComment on above:Performed By: #### BMP, BNP, CBC, HS TROP ####[place] [address] [place] [address] USAEosinophils (Bld) [#/Vol]0.4 10*3/uLNormal0.0-0.45 The [facility] Physician GroupComment on above:Performed By: #### BMP, BNP, CBC, HS TROP ####[place] [address] USAEosinophils/100 WBC (Bld)3.5 %Normal.The [facility] Physician GroupComment on above:Performed By: #### BMP, BNP, CBC, HS TROP ####[place] [address] USAErythrocyte distribution width (RBC) [Ratio]12.8 %Drvbpn63.0-14.8The [facility] Physician GroupComment on above: Performed By: #### BMP, BNP, CBC, HS TROP ####[place] [address] USAHematocrit (Bld) [Volume fraction]29.3 %Low 38.8-50.0The [facility] Physician GroupComment on above:Performed By: #### BMP, BNP, CBC, HS TROP ####[place] [address] USAHemoglobin (Bld) [Mass/Vol]9.8 g/dLLow13.0-17.0The [facility] Physician GroupComment on above:Performed By: #### BMP, BNP, CBC, HS TROP ####[place] [address] [place] Lymphocytes (Bld) [#/Vol]2.9 10*3/uLNormal1.00-4.8[facility] Comment on above:Performed By: #### BMP, BNP, CBC, HS TROP ####[place] [address] USALymphocytes/100 WBC (Bld)22.3 %Normal.The [facility] Physician GroupComment on above:Performed By: #### BMP, BNP, CBC, HS TROP ####[place] [address] USAMCH (RBC) [Entitic mass]29.3 hwFxqvpa50.5-35.2The [facility] Physician GroupComment on above:Performed By: #### BMP, BNP, CBC, HS TROP ####[place] [address] [place] MCV (RBC) [Entitic vol]87.2 bYRzfbuh92.5-101The [facility] Physician GroupComment on above:Performed By: #### BMP, BNP, CBC, HS TROP ####[place] [address] USAMean Corpuscular HGB Conc33.6 g/fPQvdkqx64.5-35.6The [facility] Physician GroupComment on above:Performed By: #### BMP, BNP, CBC, HS TROP ####[place] [address] USAMonocytes (Bld) [#/Vol]0.5 10*3/uLNormal0.0-0.8The [facility] Physician GroupComment on above:Performed By: #### BMP, BNP, CBC, HS TROP ####[place] [address] [place] Monocytes/100 WBC (Bld)15.64 %Normal0.00-20.00[facility] Comment on above:Performed By: #### BMP, BNP, CBC, HS TROP ####[place] [address] USAMonocytes/100 WBC (Bld)3.5 %Normal.The [facility] Physician GroupComment on above:Performed By: #### BMP, BNP, CBC, HS TROP ####[place] [address] USANeutrophils (Bld) [#/Vol]9.1 10*3/uLHigh1.8-7.7The [facility] Physician GroupComment on above:Performed By: #### BMP, BNP, CBC, HS TROP ####[place] [address] [place] Neutrophils/100 WBC (Bld)70.2 %Normal.The [facility] Physician GroupComment on above:Performed By: #### BMP, BNP, CBC, HS TROP ####[place] [address] USANRBC%0.1 /100{WBC}Normal0-0.5The [facility] Physician GroupComment on above:Performed By: #### BMP, BNP, CBC, HS TROP ####[place] [address] [facility] Platelet mean volume (Bld) [Entitic vol]7.4 fLNormal6.6-10.1The [facility] Physician GroupComment on above:Performed By: #### BMP, BNP, CBC, HS TROP ####[address] Platelets (Bld) [#/Vol]330 10*3/mRVlbqfd826-547Zjm [facility] Comment on above:Performed By: #### BMP, BNP, CBC, HS TROP ####[place] [address] USARBC (Bld) [#/Vol]3.36 10*6/uLLow3.90-5.60The [facility] Physician GroupComment on above:Performed By: #### BMP, BNP, CBC, HS TROP ####[place] [address] USAWBC (Bld) [#/Vol]12.9 10*3/uLHigh4.1-10.5The [facility] Physician GroupComment on above:Performed By: #### BMP, BNP, CBC, HS TROP ####[place] [address] [facility] White Blood Count12.9 [CFU]/mLHigh4.1-10.5The [facility] Physician GroupComment on above:Performed By: #### BMP, BNP, CBC, HS TROP ####[place] [address] USAECG 12 lead ECGon 11-29-2024 ECG 12 lead [facility]TR[facility] [address] [place] [address] Electrocardiograph Report Signed Patient: Jesse Garrison MR#: [id number] : 1950 Acct:[id number] Age/Sex: 74 / M ADM Date: 11/29/24 Loc: ER Room: Type: [facility] ER Attending Dr: Ordering Provider: Carri [...] branch block Confirmed by Carri Shoemaker MD ([id number]) on 11/29/2024 6:47:22 AM Referred By: Electronically Signed By: Carri Shoemaker MD Transcribed By: MUS Signed By Carri Shoemaker MD 11/11 12/05 0647[facility] Physician [facility] HospitalGlucose Poct Glucometerson 34-87-0407Zcpacvk [Mass/Vol]254 mg/dLAbbott Northwestern HospitalComment on above:Result Comment: Random Glucose Reference Range is dependent on time and content of last meal. Glucose of more than 200 mg/dL in a nonstressed, ambulatory subject supports the diagnosis of Diabetes Mellitus. PERFORMED BY: [place] [address] PATHOLOGIST [employer] FLORENCIO CORTEZ M.D.Performed By: #### BMP, CBC #### [place] [address] MHXFoydvth4Dgb1: Cleaned MeterNoFormerly [facility] Physician [facility] General HospitalComment on above:Result Comment: PERFORMED BY: [place] [address] PATHOLOGIST [employer] FLORENCIO CORTEZ M.D.Performed By: #### GLULS #### Point of Care testing ,Glucose [Mass/Vol]118 mg/dLHCA Florida [facility] Hospital Physician GroupComment on above: Result Comment: Random Glucose Reference Range is dependent on time and content of last meal. Glucose of more than 200 mg/dL in a nonstressed, ambulatory subject supports the diagnosis of Diabetes Mellitus.Performed By: #### GLULS #### Point of Care testing ,Glucose [Mass/Vol]158 mg/dLAbbott Northwestern HospitalComment on above: Result Comment: Random Glucose Reference Range is dependent on time and content of last meal. Glucose of more than 200 mg/dL in a nonstressed, ambulatory subject supports the diagnosis of Diabetes Mellitus. PERFORMED BY: [place] [id number] PATHOLOGIST [employer] FLORENCIO CORTEZ M.D.Performed By: #### BMP, CBC #### [facility] [address] [place], [place] [address] USALeukoReduced RBCon 69-28-3433BzunpZetqlfx RBCTRANSFUSED 11/30/[address] Mary HospitalPartial Thromboplastin Timeon 34-83-2730zSCW Coag (Bld) [Time]23.8 sLow25.1-36.5[facility] Physician [facility] Comment on above:Result Comment: A hematocrit value greater than 55% may lead to inaccurate results in coagulation testing. Patients having hematocrit values >55% require a special collection tube for coagulation studies. Please contact the laboratory at [phone] for redraw instructions. PERFORMED BY: [place] [id number] PATHOLOGIST [employer] FLORENCIO CORTEZ M.D.Performed By: #### PT, PTT ####[facility] [address] [place] [id number] USAProthrombin Time INRon 51-77-7364LFL Coag (PPP) [Relative time]1.1 {INR}NormalThe [facility] Physician [facility] HospitalComment on above:Result Comment: INR Therapeutic Range A) Pre- and [...] patients with mechanical heart valves: 3 - 4.5Performed By: #### PT, PTT ####[address] [address] USAPT Coag (PPP) [Time]12.2 sNormal9.0-12.9The [facility] Physician GroupComment on above:Result Comment: A hematocrit value greater than 55% may lead to inaccurate results in coagulation testing. Patients having hematocrit values >55% require a special collection tube for coagulation studies. Please contact the laboratory at [phone] for redraw instructions.Performed By: #### PT, PTT ####[address] [address] USAStool Occult Blood (Guaiac)on 65-39-6909Zctoc Occult Blood (Guaiac)Occult Blood Positive for Occult Blood by Guaiac Methodology Reference range = Negative PERFORMED BY: [address] [address] PATHOLOGIST [employer] FLORENCIO CORTEZ M.D.NormalThe [facility] Physician GroupComment on above: Performed By: #### OB(GUAIAC) ####[address] [address]WTGWonyoept I High Sensitivityon 08-57-5884Mgedhypz I High Xnvguhyeqbn1Ppblxc3-66Ycw [facility] Physician GroupComment on above:Result Comment: The Troponin units of report have been changed to meet the Chest Pain Accreditation requirement, element EC5.M1l2. Troponin units are changed from pg/ml to ng/L. Also, the decimal is removed and results are in whole numbers. PERFORMED BY: [address] [place] [address] PATHOLOGIST [employer] FLORENCIO CORTEZ M.D.Performed By: #### HS TROP ####[address] [address] USATroponin I High Blcgmzyoiof2Wakyop8-32 The [facility] Physician GroupComment on above:Result Comment: The Troponin units of report have been changed to meet the Chest Pain Accreditation requirement, element EC5.M1l2. Troponin units are changed from pg/ml to ng/L. Also, the decimal is removed and results are in whole numbers. PERFORMED BY: [place] [address] PATHOLOGIST [employer] FLORENCIO CORTEZ M.D.Performed By: #### BMP, BNP, CBC, HS TROP ####[facility] [id number] [place] [id number] USAType and Screenon 05-69-3095KZW and Rh group Nom (Bld)Blood group O Rh(D) positiveNormalThSt. Luke's McCall Physician GroupComment on above:Order Comment: Transfuse now? Y Number of units to transfuse now? 1 Transfuse now? Y Number of units to transfuse now? 1Result Comment: PERFORMED BY: [place] [address] PATHOLOGIST [employer] FLORENCIO CORTEZ M.D.XR chest 2V*on 17-25-8424EW chest 2V*[facility] [address] [place] [address] XRay Report Signed Patient: Jesse Garrison MR#: [id number] : 1950 Acct:[id number] Age/Sex: 74 / M ADM Date: 11/29/24 Loc: ER Room: Type: [facility] ER Attending Dr: Copies to: Carri [...] Owusu M.D. 11/29/2024 8:15 AM Dictation Location: [place] [address] Transcribed By: ERICK 11/29/24814 Dictated By: Jase Owusu II, MD 11/29/24814 Signed By: 11/29/24 0815[facility] Physician GroupUroVysion Fish and Urine Cyto (P4 Labs)on 42-63-0135UEOSXM & UCDiagnosis InfoInvalid Interpretation CodeFisher Kennedy Krieger InstituteComment on above:Result Comment: A:Urine,Bladder Wash:Bladder Wash Diagnosis Summary - Adequate cellularity for evaluation. Diagnosis Summary - The UroVysion FISH study detected normal copy numbers for chromosomes 3, 7, 17,and 9p21. 78 cells were analyzed in this evaluation. No evidence of aneuploidy for chromosomes 3, 7, or 17 or deletion of the 9p21 locus was found in cells present in this specimen. This test does not rule out the possibility of a low grade non-invasive papillary urothelial carcinoma. These findings should be correlated with cytology and cystoscopy results. * CPT: 83404, 35688. Microscopic Notes - Microscopic Notes - Abnormal cells 9p21 deletions: Abnormal cells aneploid events: Total cells analyzed: 78 Hematuria: Gross Description Site ID:A color Yellow fixative Alcohol Received 90 mls of clear yellow fluid with the patient's name and, Bladder Wash on the vial. Electronically signed by : on: 11/19/2024 11:14:02Performed By: #### [id number] #### [facility] [address] [place] [address]Ujednqonsg Visit Summaryon 61-81-5898Zfmtkvqkbf Visit Summary Ambulatory Visit Summary JESSE GARRISON :1950 Visit Date:11/13/2024 Ambulatory Visit Instructions Your Diagnosis Hx of bladder cancer Elevated PSA Enlarged prostate with urinary obstruction Your Care Team Attending Physician - MACI BLAKE, Patito Garcia Primary Care Physician - ANTONI MONET DO This Is Your Medications List Contact [...] Cystoscopy (11/15/2023), Cystoscopy (05/31/2023), Cystoscopy (05/18/2022), Cystoscopy (10/27/2021),Cystoscopy (07/28/2021), Cystoscopy (04/21/2021), Cystoscopy (01/20/2021), Cystoscopy (10/14/2020),Cystoscopy (06/17/2020), Cystoscopy (03/03/2020), Ablation of neoplasm of [...] [facility] [address] [place] [address]- Medications What How Much When Instructions Unchanged [...] hepatitis Hypertension Myocardial infarct Myocardial infarction (heart attack-AR) Smoker Historical - Any problem that you [...] or past use of tobacco products or beingoverweight. What are the benefits of screening? Cancer [...] ??? Certain lifestyle factors, such as smoking (more content not included)...Normal [facility]rieger InstituteUroVysion Fish and Urine Cyto ( Labs)on 11-13-2024 UVUC Method of ExtractionBladder [facility] CenterComment on above:Performed By: #### [id number] #### [facility] [address] [place], [place] [address]ZNQY Number of Dhfs8Jdqdhkm Interpretation CodeBarnesville HospitalComment on above:Performed By: #### [id number] #### [facility] [address] [place], [place] [address]EDXY SpecimenBladder [facility] Comment on above:Performed By: #### [id number] #### [facility] [address] [facility] [place], [place] [address]RYNZ Type of ServiceTechnical OnlyGerman HospitalComment on above:Performed By: #### [id number] #### [facility] [address] [place], [place] [address]Jwwhjzz Office/Clinic Noteon 48-21-0560Fdqjoza Office/Clinic NoteUrology Office/Clinic Note Chief Complaint Patient is here for Cysto HPI Staff Cysto ABX taking, need fish/cytol History of Present Illness Tests reviewed: I have reviewed the previous health record information and history for this patient from Dr. Lux. I have reviewed and verified the staff [...] to get a PSA level at the [facility] in a month or so. -Check PSA from [facility] in a month 3. Enlarged prostate with urinary obstruction (N40.1: Benign prostatic hyperplasia with lower urinary tract symptoms) S/p TURP 02/2018. Not taking any BPH or bladder meds. Follow-up With When Contact Information MACI BLAKE, Patito Garcia, URL [facility] [address], [place] [address]- Additional Instructions: 1 yr surveillance cysto/bt ck/FISH/cytol with PSA from [facility] Patient Education Cancer Screening for Males I, Irma Vance, personally scribed for Dr. Lux on 11/13/2024 08:16:40. . Documentation recorded by the scribe, Irma Vance, accurately reflects the services(s) I performed and decisions made by me. Authenticated by Dr. Lux on 11/13/2024 08:18:27. Problem List/Past Medical History Ongoing Bladder cancer BMI 28.0-28.9,adult CAD (coronary artery disease) Diabetes Elevated PSA Enlarged prostate with urinary obstruction History of skin cancer History of urinary retention Hx of bladder cancer Hx of hepatitis Hypertension Myocardial infarct Myocardial infarction (heart attack-AR) Smoker Historical Lesion of bladder Procedure/Surgical History Cystoscopy (11/15/2023), Cystoscopy (05/31/2023), Cystoscopy (05/18/2022), Cystoscopy (10/27/2021),Cystoscopy (07/28/2021), Cystoscopy (04/21/2021), Cystoscopy (01/20/2021), Cystoscopy (10/14/2020),Cystoscopy (06/17/2020), Cystoscopy (03/03/2020), Ablation of neoplasm of urinary bladder using laser (11/19/2019), Cystoscope (11/05/2019), Cystoscopy (07/30/2019), Cystoscope (02/20/2019), Cystoscopy (11/27/2018), Cystoscopy (08/21/2018), TURP - Transurethral resection of prostate (02/15/2018), Cystoscopy and transurethral resection of bladder tumour (01/25/2018), Urodynamics (01/16/2018), Colonoscopy, Cystoscopy, Knee replacement, Placement of stent in cardiac conduit. Medications aspirin 81 mg Oral EC Tab atorvastatin 80 mg Tab empagliflozin 25 (more content not included)...[facility] Comment on above:Result Comment: Electronically Signed By: Patito LUX MD\.br\Date and Time Signed: 11/13/24 08:18 EDT\.br\Electronically Co-Signed By: Irma Vance\.br\Date and Time Co-Signed: 11/13/24 08:16 EDTXR FOOT RIGHT 3 VIEWSon 63-42-9834IK FOOT RIGHT 3 VIEWSEXAMINATION: XR FOOT RIGHT 3 VIEWSPRO/RT 10/14/2024 09:21 [...] No radiopaque foreign bodies. Right foot MACRO: NoneNormalThe MetroHealth SystemXR Foot - right 3 Viewson 63-69-0845CVAICWOTDPC: XR FOOT RIGHT 3 VIEWSPRO/RT 10/14/2024 09:21 [...] radiopaque foreign bodies. Right foot MACRO: None Luis Fernando Tobin DO - 10/14/2024 EXAMINATION: XR FOOT RIGHT [...] radiopaque foreign bodies. Right foot MACRO: None [facility]HealthMetroHealthRadiology Study observation (narrative)MetroHealthXR KNEE LEFT AP+LAT 2 VIEWSon 85-88-1547SQ KNEE LEFT AP+LAT 2 VIEWSEXAMINATION: XR KNEE LEFT AP+LAT 2 VIEWSPRO/LT 10/14/2024 09:20 AM CLINICAL HISTORY: ARTHRITIS ASSOCIATED DIAGNOSIS: Arthritis ORDERING PROVIDER: CHUCK OQUENDO TECHNOLOGISTS NOTE: COMPARISON: None FINDINGS: IMPRESSION: Status post left knee arthroplasty. No signs of loosening. No acute fracture or dislocation. Small joint effusion. Left knee MACRO: NoneNormalThe MetroHealth SystemXR Knee - left AP and Lateralon 27-48-9638ATGGEUIUTPF: XR KNEE LEFT AP+LAT 2 VIEWSPRO/LT 10/14/2024 09:20 AM CLINICAL HISTORY: ARTHRITIS ASSOCIATED DIAGNOSIS: Arthritis ORDERING PROVIDER: CHUCK MENDEZ NOTE: COMPARISON: None FINDINGS: IMPRESSION: Status post left knee arthroplasty. No signs of loosening. No acute fracture or dislocation. Small joint effusion. Left knee MACRO: None Luis Fernando Tobin DO - 10/14/2024 EXAMINATION: XR KNEE LEFT AP+LAT 2 VIEWSPRO/LT 10/14/2024 09:20 AM CLINICAL HISTORY: ARTHRITIS ASSOCIATED DIAGNOSIS: Arthritis ORDERING PROVIDER: CHUCK OQUENDO TECHNNICK NOTE: COMPARISON: None FINDINGS: IMPRESSION: Status post left knee arthroplasty. No signs of loosening. No acute fracture or dislocation. Small joint effusion. Left knee MACRO: None [facility]Rad[facility] Study observation (narrative)[facility]XR Knee - left AP and LateralOrdered By: Luis Fernando Means on 59-82-1631TurtvAwcamc Work Phone: XR L-SPINE AP+LATERAL 2-3 VIEWSon 32-35-9687TF L-SPINE AP+LATERAL 2-3 VIEWSEXAMINATION: XR L-SPINE AP+LATERAL 2-3 VIEWS 10/14/2024 09:20 [...] acute fracture. 2. Multilevel lumbar spondylosis. MACRO: NoneNormalThe MetroHealth SystemXR Lumbar spine AP and Lateralon 45-70-3209ABFADJKUFPH: XR L-SPINE AP+LATERAL 2-3 VIEWS 10/14/2024 09:20 [...] fracture. 2. Multilevel lumbar spondylosis. MACRO: None Luis Fernando Tobin DO - 10/14/2024 EXAMINATION: XR L-SPINE AP+LATERAL [...] fracture. 2. Multilevel lumbar spondylosis. MACRO: None [facility]HealthRad[facility] Study observation (narrative)[facility] Reminderson 32-81-6351XqqstcwjmEnyddwyem From: Sammie Padilla To: EU - Recalls Lux; Sent: 11/15/2023 07:59:38 EDT Show up: 09/10/2024 07:59:00 EDT Subject: cysto/fish/cytol Due Date/Time: 10/07/2024 07:59:00 EDT Reminder/Recall Patient is due in Nov 2024 for 1 year cysto/fish/cytol, bt ck (psa) Spoke to pt, ramírez 11/13/24.AngelBarnesville HospitalRemindersReminders From: Sammie Padilla To: EU - Recalls Lux; Sent: 09/19/2024 14:26:09 EDT Show up: 08/11/2025 14:26:00 EDT Subject: cysto/FISH/cytol/PSA Due Date/Time: 09/08/2025 14:26:00 EDT Reminder/Recall Patient is due in Nov 2025 for 1 year cysto/fish/cytol/psa (bt ck)German HospitalA1C with Estimated Average Gluon 00-85-4041Zrvrzik [Mass/Vol]194 mg/dLNormalThe [facility] Physician GroupComment on above:Result Comment: PERFORMED BY: [address] [address] PATHOLOGIST [employer] CLAUDY BARBOZA M.D.Performed By: #### A1C [facility] eA ####[place] [address] [place], [place] [address]FFFKpY0z (Bld) [Mass fraction]8.4 %High4.3-5.6The [facility] Physician GroupComment on above:Result Comment: Increased risk for diabetes: 5.7 - 6.4 diabetes: >6.4 glycemic control for adults with diabetes: <7.0Performed By: #### A1C [facility] eA ####[address] [address]HUHJqfan estimated average glucose determination by estimation from glycated hemoglobin Ordered By: Antoni Monet on 61-49-7676Fvpoysv glucose Estimated from glycated hemoglobin (Bld) [Mass/Vol]Glucose mean value [Mass/volume] in Blood Estimated from glycated hemoglobinThe Bellevue HospitalECH echo transthoracic on 57-74-0322TMF echo transthoracicTRINITY [facility] Main [address] [address] Echocardiogram Signed Patient: Jesse Garrison MR#: [id number] : 1950 Acct:[id number] Age/Sex: 74 / M ADM Date: 03/21/24 Loc: Room: Type: [facility] Attending Dr: Antoni Monet DO Ordering Provider: Antoni Monet DO Date of Service: 03/21/2412/05/736 ECH/ECH echo transthoracic: R06.09 - Other forms of dyspnea Copies to: DO Minnie Uriartei,MD BSA: 2.1 m2 BP: 118/60 mmHg HR: [...] Performed At: 03/21/24 0748 Signed By: Minnie Raygoza MD 03/21/[address] [place] [address] Physician GroupHemoglobin A1c/Hemoglobin.total in BloodOrdered By: Antoni Monet on 86-60-1512XbJ5q (Bld) [Mass fraction]Hemoglobin A1c percentageHigh4.3-5.6 The Bellevue HospitalComment on above:Increased risk for diabetes: 5.7 - 6.4diabetes: >6.4glycemic control for adults with diabetes: <7.0X-ray reportOrdered By: Dallas Mendoza on 25-40-5272Mqokm [facility] [address] [place] [address] XRay Report Signed Patient: Jesse Garrison MR#: [id number] : 1950 Acct:[id number] Age/Sex: 74 / M ADM Date: 5 Loc: Room: Type: [facility] Attending Dr: Antoni Monet DO Copies to: Antoni Monet DO~ Ordering Provider: Antoni Monet DO Date of Service: 03/21/24 XR/XR chest [...] Dallas Mendoza M.D.03/21/2024 8:45 AM Dictation Location: [place] [address] Transcribed By: ERICK 03/21/24 0845 Dictated By: Dallas Mendoza MD 03/21/2442 Signed By: 03/21/2445 [facility] Work Phone: XR chest 2V*on 84-72-5475CA chest 2V*[facility] [address] [place] [address] XRay Report Signed Patient: Jesse Garrison MR#: [id number] : 1950 Acct:[id number] Age/Sex: 74 / M ADM Date: 03/21/24 Loc: Room: Type: [facility] Attending Dr: Antoni Monet DO Copies to: Antoni Monet DO Ordering Provider: Antoni Monet DO Date of Service: 03/21/24 XR/XR chest [...] Dallas Mendoza M.D.03/21/2024 8:45 AM Dictation Location: [place] [address] Transcribed By: ERICK 03/21/2445 Dictated By: Dallas Mendoza MD 03/21/2442 Signed By: 03/21/24 45[facility] Physician GroupBasophils Auto (Bld) [#/Vol] Ordered By: Tr Garcia on 46-16-8091Ameiukedj (Bld) [#/Vol]0.0 10*3/uL 0.0-0.2FWooster Community HospitalBasophils (Bld) [#/Vol]Automated basophil count0.0-0.2FWooster Community HospitalBasophils/100 WBC Auto (Bld)Ordered By: Tr Garcia on 06-61-4108Qhrphllzi/100 WBC (Bld)0.3 %. The [facility] HospitalBasophils/100 WBC (Bld)Automated basophil %. The [facility] HospitalCalcium [Mass/volume] in Serum or PlasmaOrdered By: Tr Garcia on 01-97-9519Hofnwfl [Mass/Vol]9.2 mg/dL8.6-10.3 The [facility] HospitalCalcium [Mass/Vol]Calcium [Mass/volume] in Serum or Plasma8.6-10.3FWooster Community HospitalCarbon dioxide, total [Moles/volume] in Serum or PlasmaOrdered By: Tr Garcia on 12-28-2023 CO2 [Moles/Vol]24.8 mmol/L21.0-31.0The [facility] HospitalCO2 [Moles/Vol]Carbon dioxide, total [Moles/volume] in Serum or Qicboh55.0-31.0 The [facility] HospitalChloride [Moles/volume] in Serum or Plasma Ordered By: Tr Garcia on 64-78-4906Xysxsfee [Moles/Vol]103 mmol/L 98-107The [facility]vue HospitalChloride [Moles/Vol]Chloride [Moles/volume] in Serum or Ybjlrg74-353SbcwwuuehThe [facility]vue Hospital Cholesterol [Mass/volume] in Serum or PlasmaOrdered By: Otoniel Singleton on 12-28-2023 Cholesterol [Mass/Vol]126 mg/kHRbz393-828ExmwzuaugThe [facility] Hospital Comment on above:Chol less than 200 mg/dl low riskChol 201-239 mg/dl borderline riskChol 240 mg/dl and greater high riskCholesterol [Mass/Vol]Cholesterol [Mass/volume] in Serum or HltakuDma209-023VpcpeivlhThe [facility] Hospital Comment on above:Chol less than 200 mg/dl low riskChol 201-239 mg/dl borderline riskChol 240 mg/dl and greater high riskCholesterol in HDL [Mass/volume] in Serum or PlasmaOrdered By: Otoniel Singleton on 66-59-9535Gnrfjdgfctv in HDL [Mass/Vol] Serum or plasma high density lipoprotein (HDL) cholesterol qebqmvumvzo63-30 The [facility] HospitalComment on above:HDL CHOL ATP-III CLASSIFICATION Cardiovascular RiskHDL > or equal to 60 mg/dL LOWHDL < 40 mg/dL HIGHCholesterol in LDL Calc [Mass/Vol]Ordered By: Otoniel Singleton on 12-28-2023 Cholesterol in LDL [Mass/Vol]43 mg/dL0-[facility] Comment on above:LDL ATP III CLASSIFICATIONLDL less than 100 mg/dL OptimalLDL 100-129 mg/dL Near or above wkasasiXIT490-541 mg/dL Borderline highLDL 160-189 mg/dL HighLDL greater than 189 mg/dL Very highCholesterol in LDL [Mass/Vol] Cholesterol in LDL [Mass/volume] in Serum or Plasma by calculation0The [facility] HospitalComment on above:LDL ATP III CLASSIFICATIONLDL less than 100 mg/dL OptimalLDL 100-129 mg/dL Near or above yizsukzTHO998-714 mg/dL Borderline highLDL 160-189 mg/dL HighLDL greater than 189 mg/dL Very high Cholesterol in VLDL Calc [Mass/Vol]Ordered By: Otoniel Singleton on 12-28-2023 Cholesterol in VLDL [Mass/Vol]52 mg/dLThe [facility] Cholesterol in VLDL [Mass/Vol]Cholesterol in VLDL [Mass/volume] in Serum or Plasma by calculationThe [facility]vue HospitalCreatinine [Mass/volume] in Serum or PlasmaOrdered By: Tr Garcia on 19-53-6621Rwoaluivuz [Mass/Vol]0.99 mg/dL0.70-1.30[facility] HospitalCreatinine [Mass/Vol]Creatinine [Mass/volume] in Serum or Plasma0.70-1.30[facility] HospitalEosinophils Auto (Bld) [#/Vol]Ordered By: Tr Garcia on 36-44-1191Gybywodqena (Bld) [#/Vol]0.2 10*3/uL0.0-0.45The [facility] HospitalEosinophils (Bld) [#/Vol]Automated eosinophil count0.0-0.45 [facility] HospitalEosinophils/100 WBC Auto (Bld)Ordered By: Tr Garcia on 01-18-6387Jlnxxxpoitx/100 WBC (Bld)1.5 %.[facility] HospitalEosinophils/100 WBC (Bld)Automated eosinophil %.[facility] HospitalErythrocyte distribution width Auto (RBC) [Ratio]Ordered By: Tr Garcia on 03-72-5659Cjkuuhhoduw distribution width (RBC) [Ratio]12.5 %12.0-14.8[facility] HospitalErythrocyte distribution width (RBC) [Ratio]Erythrocyte distribution width [Ratio] by Automated count 12.0-14.8The [facility] HospitalGlucose Glucometer (BldC) [Mass/Vol] Ordered By: Olga Bailon on 73-66-7233Xfwjcyi [Mass/Vol]201 mg/dLThe Bellevue HospitalComment on above:Random Glucose Reference Range is dependent on time and content of last meal. Glucose of more than 200 mg/dL in a nonstressed, ambulatory subject supports the diagnosis of Diabetes Mellitus. Glucose [Mass/Vol]Capillary blood glucose measurement by glucometer (mass/volume)The [facility] HospitalComment on above:Random Glucose Reference Range is dependent on time and content of last meal. Glucose of more than 200 mg/dL in a nonstressed, ambulatory subject supports the diagnosis of Diabetes Mellitus.Glucose [Mass/volume] in Serum or PlasmaOrdered By: Tr Garcia on 03-54-1512Ysoevwr [Mass/Vol]135 mg/hEVwvd27-537VxordhdadThe [facility] HospitalComment on above:ADA recommended reference rangeRandom Glucose Reference Range is dependent on time and content of last meal. Glucose of more than 200 mg/dL in a nonstressed, ambulatory subject supports the diagnosisof Diabetes Mellitus.Glucose [Mass/Vol]Glucose [Mass/volume] in Serum or PlasmaHigh 70-100The [facility] HospitalComment on above:ADA recommended reference rangeRandom Glucose Reference Range is dependent on time and content of last meal. Glucose of more than 200 mg/dL in a nonstressed, ambulatory subject supports the diagnosisof Diabetes Mellitus.Hematocrit Auto (Bld) [Volume fraction]Ordered By: Tr Garcia on 40-29-7165Vbgztfartk (Bld) [Volume fraction]43.5 %38.8-50.0[facility] HospitalHematocrit (Bld) [Volume fraction]Hematocrit [Volume Fraction] of Blood by Automated count 38.8-50.0[facility] HospitalHemoglobin [Mass/volume] in Blood Ordered By: Tr Garcia on 70-01-8059Jgdpzehkeq (Bld) [Mass/Vol]15.4 g/dL13.0-17.0[facility] HospitalHemoglobin (Bld) [Mass/Vol] Hemoglobin [Mass/volume] in Blood13.0-17.0[facility] Leukocytes [#/volume] corrected for nucleated erythrocytes in Blood by Automated counOrdered By: Tr Garcia on 11-69-4602AMJ corrected for nucl RBC Auto (Bld) [#/Vol]12.8 10*3/uLHigh4.1-10.5FWooster Community HospitalWBC corrected for nucl RBC Auto (Bld) [#/Vol]Leukocytes [#/volume] corrected for nucleated erythrocytes in Blood by Automated counHigh4.1-10.5FWooster Community HospitalLymphocytes Auto (Bld) [#/Vol]Ordered By: Tr Garcia on 34-24-5386Mpxkduwlknh (Bld) [#/Vol]2.8 10*3/uL1.00-4.8The [facility] HospitalLymphocytes (Bld) [#/Vol]Lymphocytes [#/volume] in Blood by Automated count1.00-4.8[facility] HospitalLymphocytes/100 WBC Auto (Bld) Ordered By: Tr Garcia on 12-34-2953Gkzkxtuyenx/100 WBC (Bld)22.0 %. [facility] HospitalLymphocytes/100 WBC (Bld)Lymphocytes/100 leukocytes in Blood by Automated count.[facility] Auto (RBC) [Entitic mass]Ordered By: Tr Garcia on 22-39-6755SGL (RBC) [Entitic mass]31.0 pg27.5-35.2FProMedica Memorial Hospital (RBC) [Entitic mass]MCH [Entitic mass] by Automated count27.5-35.2FWooster Community HospitalMC Auto (RBC) [Mass/Vol]Ordered By: Tr Garcia on 59-46-8052LOEG (RBC) [Mass/Vol]35.3 g/dL32.5-35.6FTrinity Health System West CampusHC (RBC) [Mass/Vol]MCHC [Mass/volume] by Automated count32.5-35.6 [facility] HospitalMCV Auto (RBC) [Entitic vol]Ordered By: Tr Garcia on 84-80-6969PJH (RBC) [Entitic vol]87.9 fL83.5-101 [facility] HospitalV (RBC) [Entitic vol]MCV [Entitic volume] by Automated count83.5-101The [facility] HospitalMonocytes Auto (Bld) [#/Vol]Ordered By: Tr Garcia on 37-67-1925Pblrrzhot (Bld) [#/Vol]0.7 10*3/uL0.0-0.8[facility] HospitalMonocytes (Bld) [#/Vol]Automated blood monocyte count0.0-0.8[facility] HospitalMonocytes/100 WBC Auto (Bld)Ordered By: Tr Garcia on 46-52-6333Tysgsmgzn/100 WBC (Bld) 5.6 %.[facility] HospitalMonocytes/100 WBC (Bld)Automated monocyte %.[facility] HospitalNatriuretic peptide B [Mass/Vol]Ordered By: Tr Garcia on 22-97-1358Dphcyyattju peptide B (Bld) [Mass/Vol]35.0 pg/mL5-100The [facility] HospitalNatriuretic peptide B (Bld) [Mass/Vol]BNP ser/plas5-100The [facility] HospitalNeutrophils Auto (Bld) [#/Vol]Ordered By: Tr Garcia on 41-36-5648Kgovarhzwdu (Bld) [#/Vol]9.1 10*3/uLHigh1.8-7.7FWooster Community HospitalNeutrophils (Bld) [#/Vol]Neutrophils [#/volume] in Blood by Automated countHigh1.8-7.7FWooster Community HospitalNeutrophils/100 WBC Auto (Bld)Ordered By: Tr Garcia on 83-88-2679Ewnibfbonyv/100 WBC (Bld)70.6 %.[facility] HospitalNeutrophils/100 WBC (Bld)Automated neutrophil %.[facility] HospitalNo Panel InformationOrdered By: Tr Garcia on 92-16-7690Rumxbkqfc GFR (CKD-EPI)> 60.0 mL/MinThe [facility] Creatinine Clearance (Chem75.00[facility] Nucleated erythrocytes [Presence] in Blood by Automated countOrdered By: Tr Garcia on 05-87-4810Taftbbzzf RBC Auto Ql (Bld)0.0 /100{WBC}0-0.5 [facility] HospitalNucleated RBC Auto Ql (Bld)Nucleated erythrocytes [Presence] in Blood by Automated count0-0.5FWooster Community HospitalPlatelet mean volume Auto (Bld) [Entitic vol]Ordered By: Tr Garcia on 98-86-2643Fephshms mean volume (Bld) [Entitic vol]7.8 fL 6.6-10.1FWooster Community HospitalPlatelet mean volume (Bld) [Entitic vol]Platelet mean volume [Entitic volume] in Blood by Automated count6.6-10.1 [facility] HospitalPlatelets Auto (Bld) [#/Vol]Ordered By: Tr Garcia on 54-09-2787Qeqclesvc (Bld) [#/Vol]320 10*3/kX143-728 [facility] HospitalPlatelets (Bld) [#/Vol]Platelets [#/volume] in Blood by Automated lqzco703-566XtnfnnncuThe Bellevue HospitalPotassium [Moles/volume] in Serum or PlasmaOrdered By: Tr Garcia on 12-28-2023 Potassium [Moles/Vol]4.6 mmol/L3.5-5.1FWooster Community HospitalPotassium [Moles/Vol]Potassium [Moles/volume] in Serum or Plasma3.5-5.1FWooster Community HospitalRBC Auto (Bld) [#/Vol]Ordered By: Tr Garcia on 70-66-1775NEI (Bld) [#/Vol]4.95 10*6/uL3.90-5.60The [facility] HospitalRBC (Bld) [#/Vol]Erythrocytes [#/volume] in Blood by Automated count 3.90-5.60Peoples Hospitalerum or plasma anion gap determinationOrdered By: Tr Garcia on 12-93-5204Vjpcg gap [Moles/Vol] 13.8 mmol/L6.0-15.0[facility] HospitalAnion gap [Moles/Vol]Serum or plasma anion gap determination6.0-15.0Peoples Hospitalerum or plasma high density lipoprotein (HDL) cholesterol measurementOrdered By: Otoniel Singleton on 77-96-6227Mvoicjaalap in HDL [Mass/Vol]31 mg/pP04-90HjuydkvzlThe Bellevue HospitalComment on above:HDL CHOL ATP-III CLASSIFICATION Cardiovascular RiskHDL > or equal to 60 mg/dL LOWHDL < 40 mg/dL HIGHSerum or plasma total cholesterol/high density lipoprotein (HDL) cholesterol mass rat Ordered By: Otoniel Singleton on 64-87-8070Pwlgncndmid.total/Cholesterol in HDL [Mass ratio]4.1 {ratio}<5.0[facility] Cholesterol.total/Cholesterol in HDL [Mass ratio]Serum or plasma total cholesterol/high density lipoprotein (HDL) cholesterol mass rat<5.0Pe[facility] Hospitalodium [Moles/volume] in Serum or PlasmaOrdered By: Tr Garcia on 42-92-4306Socztf [Moles/Vol]137 mmol/K321-563BglxgnwlsPeoples Hospitalodium [Moles/Vol]Sodium [Moles/volume] in Serum or Dhqamr789-131VsrfdbowzThe Bellevue HospitalTriglyceride [Mass/volume] in Serum or PlasmaOrdered By: Otoniel Singleton on 07-19-2814Bpnwnphrnyfl [Mass/Vol]262 mg/dLHigh0-149The [facility] HospitalComment on above:TRIG ATP III CLASSIFICATIONTRIG less than 150 mg/dL NormalTRIG 150-199 mg/dL Borderline highTRIG 200-500 mg/dL High TRIG greater than 500 mg/dL Very highStandard traceable to the Center for Disease Conrtrol and Prevention (CDC) test method. Triglyceride [Mass/Vol]Triglyceride [Mass/volume] in Serum or PlasmaHigh0-149 The [facility] HospitalComment on above:TRIG ATP III CLASSIFICATIONTRIG less than 150 mg/dL NormalTRIG 150-199 mg/dL Borderline highTRIG 200-500 mg/dL High TRIG greater than 500 mg/dL Very highStandard traceable to the Center for Disease Conrtrol and Prevention (CDC) test method. Troponin I.cardiac [Mass/volume] in Serum or Plasma by Detection limit <= 0.01 ng/Ordered By: Otoniel Singleton on 50-57-6844Hiyzhyiz I.cardiac DL <= 0.01 ng/mL [Mass/Vol]1513.9 pg/mLHigh0.0-20.0The [facility] HospitalComment on above:Results calledat 1410 on 12/28/23 --- 12/28/23 1410 ---Trop HS previously reported as: 1513.9 *H pg/mLTroponin I.cardiac DL <= 0.01 ng/mL [Mass/Vol] Troponin I.cardiac [Mass/volume] in Serum or Plasma by Detection limit <= 0.01 ng/Critically high0.0-20.0The [facility] HospitalComment on above: Results calledat 1410 on 12/28/23 --- 12/28/23 1410 ---Trop HS previously reported as: 1513.9 *H pg/mLUrea nitrogen [Mass/volume] in Serum or Plasma Ordered By: Tr Garcia on 44-60-2524Wawi nitrogen [Mass/Vol]11 mg/dL 10-04The [facility] HospitalUrea nitrogen [Mass/Vol]Urea nitrogen [Mass/volume] in Serum or Plasma10-04The [facility] HospitalW Auto (Bld) [#/Vol]Ordered By: Tr Garcia on 66-73-2748TCU (Bld) [#/Vol]12.8 10*3/uLHigh4.1-10.5FJ.W. Ruby Memorial HospitalBC (Bld) [#/Vol]Leukocytes [#/volume] in Blood by Automated countHigh4.1-10.5FWooster Community HospitalCreatine kinase [Enzymatic activity/volume] in Serum or PlasmaOrdered By: Tr Garcia on 45-33-7690YB [Catalytic activity/Vol]66 U/L30-223 [facility] HospitalCK [Catalytic activity/Vol]Creatine kinase [Enzymatic activity/volume] in Serum or Tsyomg67-764ZptpsnlaoThe Bellevue HospitalCreatine kinase.MB [Mass/volume] in Serum or PlasmaOrdered By: Tr Garcia on 96-48-0368XB.MB [Mass/Vol]3.9 ng/mL0.6-6.3FWooster Community HospitalCK.MB [Mass/Vol]Creatine kinase.MB [Mass/volume] in Serum or Plasma0.6-6.3FWooster Community HospitalHeparin anti-Xa unfractionated Ordered By: Tr Garcia on 41-31-3688Fhwvwvn unfractionated Chromogenic method Qn (PPP)0.24 [IU]/mLLow0.30-0.70The [facility] HospitalComment on above:Use the aPTT protocol when triglycerides are > 800 mg/dL,total bilirubin is > 20 mg/dL and/orpatient has received aDOAC, Fondaparinux or LMWH within 72 hours AND baselineanti-Xa level is > 0.7 units/mLHeparin unfractionated Chromogenic method Qn (PPP)Heparin anti-Xa unfractionatedLow 0.30-0.70The [facility] HospitalComment on above:Use the aPTT protocol when triglycerides are > 800 mg/dL,total bilirubin is > 20 mg/dL and/orpatient has received aDOAC, Fondaparinux or LMWH within 72 hours AND baselineanti-Xa level is > 0.7 units/mLMagnesium [Mass/volume] in Serum or PlasmaOrdered By: Yamilex Verma on 48-20-5095Dmjvoieye [Mass/Vol]2.1 mg/dL1.9-2.7FWooster Community HospitalMagnesium [Mass/Vol]Magnesium [Mass/volume] in Serum or Plasma 1.9-2.7FUC Healtherum or plasma creatine kinase MB (CKMB)/total creatine kinase (CK) ratio by calculaOrdered By: Tr Garcia on 61-74-7573WM.MB Calc [Catalytic fraction]5.9 %High0.00-2.50 [facility] HospitalCK.MB Calc [Catalytic fraction]Serum or plasma creatine kinase MB (CKMB)/total creatine kinase (CK) ratio by calculaHigh 0.00-2.50The [facility] HospitalActivated partial thromboplastin time (aPTT) in platelet poor plasma by coagulation aOrdered By: Tr Garcia on 78-88-5052kQHL Coag (PPP) [Time]32.0 s25.1-36.5FWooster Community HospitalComment on above:A hematocrit value greater than 55% may lead to inaccurate results in coagulation testing. Patientshaving hematocrit values >55% require a special collection tube for coagulation studies. Please contact the laboratory at [phone] for redraw instructions.Alanine aminotransferase [Enzymatic activity/volume] in Serum or PlasmaOrdered By: Tr Garcia on 18-13-0841NPV [Catalytic activity/Vol]16 U/L7-[facility] HospitalALT [Catalytic activity/Vol]Alanine aminotransferase [Enzymatic activity/volume] in Serum or PlasmaThe Bellevue HospitalAlbumin [Mass/volume] in Serum or Plasma by Bromocresol green (BCG) dye binding metho Ordered By: Tr Garcia on 77-95-0590Drrnyoh BCG dye [Mass/Vol]4.3 g/dL 3.5-5.7FWooster Community HospitalAlbumin BCG dye [Mass/Vol]Albumin [Mass/volume] in Serum or Plasma by Bromocresol green (BCG) dye binding metho 3.5-5.7FWooster Community HospitalAlkaline phosphatase [Enzymatic activity/volume] in Serum or PlasmaOrdered By: Tr Garcia on 48-44-7791VJT [Catalytic activity/Vol]80 U/R24-310ShpaglsqkThe Bellevue HospitalALP [Catalytic activity/Vol]Alkaline phosphatase [Enzymatic activity/volume] in Serum or Glixvk00-188SxkkpsrvdThe [facility] Hospital Aspartate aminotransferase [Enzymatic activity/volume] in Serum or PlasmaOrdered By: Tr Garcia on 99-97-5951SWT [Catalytic activity/Vol]22 U/L13-39 [facility] HospitalAST [Catalytic activity/Vol]Aspartate aminotransferase [Enzymatic activity/volume] in Serum or Ldwkha59-97GbxxdharzThe [facility]vue HospitalBasophils Auto (Bld) [#/Vol]on 78-95-8215Yhttqorfm (Bld) [#/Vol]0.0 10 3/uL0.0-0.1FWooster Community HospitalBasophils (Bld) [#/Vol]Automated basophil count0.0-0.1FWooster Community Hospital Basophils/100 WBC Auto (Bld)on 40-55-1340Rvtasoova/100 WBC (Bld)0.3 %0.2-2.0 [facility] HospitalBasophils/100 WBC (Bld)Automated basophil % 0.2-2.0[facility] HospitalBilirubin.direct [Mass/volume] in Serum or PlasmaOrdered By: Tr Garcia on 48-38-3156Fljfnrsjk.direct [Mass/Vol]0.10 mg/dL0.03-0.18FWooster Community HospitalBilirubin.direct [Mass/Vol]Bilirubin.direct [Mass/volume] in Serum or Plasma0.03-0.18FWooster Community HospitalBilirubin.total [Mass/volume] in Serum or PlasmaOrdered By: Tr Garcia on 39-75-8363Ukxeyzwtc [Mass/Vol]0.4 mg/dL0.3-1.0 [facility] HospitalBilirubin [Mass/Vol]Bilirubin.total [Mass/volume] in Serum or Plasma0.3-1.0[facility] HospitalBlood estimated average glucose determination by estimation from glycated hemoglobin Ordered By: Tr Garcia on 86-26-5576Uuycdip glucose Estimated from glycated hemoglobin (Bld) [Mass/Vol]Glucose mean value [Mass/volume] in Blood Estimated from glycated hemoglobinThe [facility] Hospital Eosinophils/100 WBC Auto (Bld)on 47-50-2737Ppxoegcnrnz/100 WBC (Bld)2.1 %0.9-7.0 [facility] HospitalEosinophils/100 WBC (Bld)Automated eosinophil % 0.9-7.0[facility] HospitalErythrocyte distribution width Auto (RBC) [Ratio]on 58-00-4703Ynuovunxyag distribution width (RBC) [Ratio]11.9 % 11.0-15.0[facility] HospitalErythrocyte distribution width (RBC) [Ratio]Erythrocyte distribution width [Ratio] by Automated count11.0-15.0 [facility] HospitalEstimated glomerular filtration rate (GFR) non- Americanon 02-90-6157ZJN/1.73 sq M.predicted among non-blacks MDRD (S/P/Bld) [Vol rate/Area]mL/min/{1.73_m2}>=60 mL/min/1.73m 2FWooster Community HospitalGFR/1.73 sq M.predicted among non-blacks MDRD (S/P/Bld) [Vol rate/Area]Estimated glomerular filtration rate (GFR) non->=60 mL/min/1.73m 2FWooster Community HospitalGlobulin Calc (S) [Mass/Vol] Ordered By: Tr Garcia on 74-68-5209Cwpgvdwa (S) [Mass/Vol]2.5 g/dL [facility] HospitalGlobulin (S) [Mass/Vol]Serum globulin measurement by calculation (mass/volume)[facility] Globulin Calc (S) [Mass/Vol]on 96-11-2445Yuyozavg (S) [Mass/Vol]3.2 g/dL [facility] HospitalGlobulin (S) [Mass/Vol]Serum globulin measurement by calculation (mass/volume)[facility] HospitalGlucose mean value [Mass/volume] in Blood Estimated from glycated hemoglobinOrdered By: Tr Garcia on 73-29-7003Lycwvlf glucose Estimated from glycated hemoglobin (Bld) [Mass/Vol]192 mg/dLThe [facility]vue HospitalHematocrit Auto (Bld) [Volume fraction]on 72-63-3334Miajqkqrmw (Bld) [Volume fraction]43.8 %42.0-54.0[facility] HospitalHematocrit (Bld) [Volume fraction] Hematocrit [Volume Fraction] of Blood by Automated count42.0-54.0[facility] HospitalHemoglobin A1c percentageOrdered By: Tr Garcia on 90-35-2852KzC3f (Bld) [Mass fraction]8.3 %High4.3-5.6FWooster Community HospitalComment on above:Increased risk for diabetes: 5.7 - 6.4diabetes: >6.4glycemic control for adults with diabetes: <7.0Hemoglobin A1c/Hemoglobin.total in BloodOrdered By: Tr Garcia on 44-65-5301CnQ3c (Bld) [Mass fraction]Hemoglobin A1c percentageHigh4.3-5.6FWooster Community HospitalComment on above:Increased risk for diabetes: 5.7 - 6.4diabetes: >6.4glycemic control for adults with diabetes: <7.0Hemoglobin [Mass/volume] in Bloodon 41-08-8070Lwjpnlwndt (Bld) [Mass/Vol]15.2 g/dL14.0-18.0[facility] HospitalHemoglobin (Bld) [Mass/Vol]Hemoglobin [Mass/volume] in Blood14.0-18.0[facility] HospitalINR in Platelet poor plasma by Coagulation assayOrdered By: Tr Garcia on 49-55-8785WJH Coag (PPP) [Relative time]1.0 {INR}[facility] HospitalComment on above:INR Therapeutic Range A) Pre- and Peroperative OAT started two weeks before surgery. NOT HIP SURGERY: 1.5 - 2.5 HIP SURGERY: 2 - 3B) Primary and secondary prevention of venous THROMBOSIS: 2 - 3C) Active venous thrombosis, pulmonary embolismand prevention of recurrent venous thrombosis: 2 - 3D) Prevention of arterial thromboembolismincluding patients with mechanical heart valves: 3 - 4.5INR Coag (PPP) [Relative time]INR in Platelet poor plasma by Coagulation assayThe Bellevue HospitalComment on above:INR Therapeutic Range A) Pre- and Peroperative OAT started two weeks before surgery. NOT HIP SURGERY: 1.5 - 2.5 HIP SURGERY: 2 - 3B) Primary and secondary prevention of venous THROMBOSIS: 2 - 3C) Active venous thrombosis, pulmonary embolismand prevention of recurrent venous thrombosis: 2 - 3D) Prevention of arterial thromboembolismincluding patients with mechanical heart valves: 3 - 4.5INR in Platelet poor plasma by Coagulation assayon 44-92-9700FSA Coag (PPP) [Relative time]0.97 {INR}[facility] HospitalComment on above:DESIRED INR:2.0-3.0 CONDITIONS NOT LISTED BELOW2.5-3.5 FOR PROSTHETIC HEART VALVE REPLACEMENT2.5-3.5 RECURRENT THROMBOSISINR Coag (PPP) [Relative time]INR in Platelet poor plasma by Coagulation assayThe [facility]vue HospitalComment on above:DESIRED INR:2.0-3.0 CONDITIONS NOT LISTED BELOW2.5-3.5 FOR PROSTHETIC HEART VALVE REPLACEMENT2.5-3.5 RECURRENT THROMBOSISLaboratory - Chemistry and Chemistry - challengeon 82-76-8476Lkktcmd [Mass/Vol]3.8 g/dL3.4-5.0[facility] HospitalALP [Catalytic activity/Vol]105 U/A12-765FbxrrupicThe [facility] HospitalALT [Catalytic activity/Vol]24 U/S05-99WkbvvzmmeThe [facility] HospitalAST [Catalytic activity/Vol]21 U/V91-40EwlxlkhqmThe [facility] Bilirubin [Mass/Vol]0.4 mg/dL0.2-1.0[facility] HospitalCalcium [Mass/Vol]9.3 mg/dL8.5-10.1FWooster Community HospitalChloride [Moles/Vol] 103 mmol/S30-113XpsoebfstThe [facility]vue HospitalCO2 [Moles/Vol]31.1 mmol/L 21.0-32.0[facility] HospitalCreatinine [Mass/Vol]1.06 mg/dL 0.70-1.30[facility] HospitalGFR/1.73 sq M.predicted MDRD (S/P/Bld) [Vol rate/Area]mL/min/{1.73_m2}>=60 mL/min/1.73m 2FWooster Community HospitalGlucose [Mass/Vol]179 mg/nBVoyf70-160TelmpomttThe [facility] Hospital Natriuretic peptide B (Bld) [Mass/Vol]511.0 pg/mL<=900.0[facility] HospitalPotassium [Moles/Vol]4.0 mmol/L3.5-5.1FWooster Community HospitalProtein [Mass/Vol]7.0 g/dL6.4-8.2FUC Healthodium [Moles/Vol]140 mmol/O311-507WqpkeukfuThe [facility] HospitalUrea nitrogen [Mass/Vol]9.0 mg/dL7.0-18.0[facility] HospitalUrea nitrogen/Creatinine [Mass ratio]8.5 mg/mgThe [facility] Laboratory - Hematology and Cell countson 78-21-8164Pudokeqr granulocytes/100 WBC (Bld)0.2 %0.0-0.5FWooster Community HospitalLeukocytes [#/volume] corrected for nucleated erythrocytes in Blood by Automated counon 45-59-1232ASA corrected for nucl RBC Auto (Bld) [#/Vol]11.4 10 3/uLHigh4.0-11.0[facility] HospitalWBC corrected for nucl RBC Auto (Bld) [#/Vol]Leukocytes [#/volume] corrected for nucleated erythrocytes in Blood by Automated counHigh 4.0-11.0[facility] HospitalLymphocytes Auto (Bld) [#/Vol]on 59-27-0622Ptzxrdikrou (Bld) [#/Vol]3.3 10 3/uL1.2-3.8[facility] HospitalLymphocytes (Bld) [#/Vol]Lymphocytes [#/volume] in Blood by Automated count1.2-3.8[facility] HospitalLymphocytes/100 WBC Auto (Bld)on 27-05-9899Bwikypggpir/100 WBC (Bld)29.2 %20.5-60.0[facility] HospitalLymphocytes/100 WBC (Bld)Lymphocytes/100 leukocytes in Blood by Automated count20.5-60.0[facility] HospitalH Auto (RBC) [Entitic mass]on 64-68-9232SNZ (RBC) [Entitic mass]30.7 pg25.9-34.0[facility] (RBC) [Entitic mass]MCH [Entitic mass] by Automated count25.9-34.0 [facility] HospitalMCHC Auto (RBC) [Mass/Vol]on 23-50-9899MTEV (RBC) [Mass/Vol]34.7 g/dL29.9-35.2FWooster Community HospitalMCHC (RBC) [Mass/Vol]MCHC [Mass/volume] by Automated count29.9-35.2FWooster Community HospitalMCV Auto (RBC) [Entitic vol]on 86-25-3614IQM (RBC) [Entitic vol] 88.5 fL80.0-94.0[facility] HospitalV (RBC) [Entitic vol]MCV [Entitic volume] by Automated count80.0-94.0[facility] Monocytes Auto (Bld) [#/Vol]on 44-11-4131Ifflyaikn (Bld) [#/Vol]0.5 10 3/uL 0.3-0.8[facility] HospitalMonocytes (Bld) [#/Vol]Automated blood monocyte count0.3-0.8[facility] HospitalMonocytes/100 WBC Auto (Bld)on 52-14-6242Mpjgvnckq/100 WBC (Bld)4.7 %1.7-12.0[facility] HospitalMonocytes/100 WBC (Bld)Automated monocyte %1.7-12.0[facility] HospitalNeutrophils Auto (Bld) [#/Vol]on 73-90-2833Glaeysdesuu (Bld) [#/Vol]7.2 10 3/uLHigh1.4-6.5FWooster Community HospitalNeutrophils (Bld) [#/Vol]Neutrophils [#/volume] in Blood by Automated countHigh1.4-6.5FWooster Community HospitalNeutrophils/100 WBC Auto (Bld)on 12-26-2023 Neutrophils/100 WBC (Bld)63.5 %43.0-75.0[facility] Neutrophils/100 WBC (Bld)Automated neutrophil %43.0-75.0[facility] HospitalNo Panel Informationon 23-67-0053Taquugjb I High Pirwnhlilrf4872.7 pg/mLCritically high4.0-76.1FWooster Community HospitalComment on above: RESULTS CALLED TO KIRK MARTE/TAHMINA IN ERCUT-OFF POINTS HAVE BEEN ESTABLISHED BASED ON THE FOURTHUNIVERSAL DEFINITION OF MYOCARDIAL INFARCTION. THE UPPERREFERENCE LIMIT (URL) OF TROPONIN, DEFINED THE 99THPERCENTILE OF cTnI DISTRIBUTION IN A REFERENCE POPULATION,HAS BEEN CONFIRMED THE DECISION TH RESHOLD FOR MIDIAGNOSIS.99TH PERCENTILE = 76.2 PG/MLNOTE: HIGH-SENSITIVITY TROPONIN ASSAY IS NOT INTENDED TO BEUSED IN ISOLATION BUT SHOULD BE INTERPRETED IN CONJUNCTIONWITH OTHER DIAGNOSTIC AND CLINICAL INFORMATION.Eosinophils # (Auto)0.2 10 3/uL0.0-0.7FWooster Community HospitalImmature Granulocyte # (Auto)0.02 10 3/uL0.00-0.03[facility] HospitalPhosphate [Mass/volume] in Serum or PlasmaOrdered By: Tr Garcia on 12-26-2023 Phosphate [Mass/Vol]3.5 mg/dL2.5-4.5FWooster Community HospitalPhosphate [Mass/Vol]Phosphate [Mass/volume] in Serum or Plasma2.5-4.5FWooster Community HospitalPlatelet mean volume Auto (Bld) [Entitic vol]on 16-48-2884Ybqitkzo mean volume (Bld) [Entitic vol]9.3 fLLow9.5-13.5FWooster Community HospitalPlatelet mean volume (Bld) [Entitic vol]Platelet mean volume [Entitic volume] in Blood by Automated countLow9.5-13.5FWo[facility] Hospital Platelets Auto (Bld) [#/Vol]on 25-00-9826Hazjyietz (Bld) [#/Vol]317 10 3/uL 150-450[facility] HospitalPlatelets (Bld) [#/Vol]Platelets [#/volume] in Blood by Automated [id number] [facility] Hospital Protein [Mass/volume] in Serum or PlasmaOrdered By: Tr Garica on 93-02-3439Bepiimc [Mass/Vol]6.8 g/dL6.4-8.9[facility] Protein [Mass/Vol]Protein [Mass/volume] in Serum or Plasma6.4-8.9[facility] HospitalProthrombin time (PT)Ordered By: Tr Garcia on 96-45-3346XC Coag (PPP) [Time]11.1 s9.0-12.9[facility] Comment on above:A hematocrit value greater than 55% may lead to inaccurate results in coagulation testing. Patientshaving hematocrit values >55% require a special collection tube for coagulation studies. Please contact the laboratory at [phone] for redraw instructions.PT Coag (PPP) [Time]Prothrombin time (PT)9.0-12.9The [facility] HospitalComment on above:A hematocrit value greater than 55% may lead to inaccurate results in coagulation testing. Patientshaving hematocrit values >55% require a special collection tube for coagulation studies. Please contact the laboratory at [phone] for redraw instructions.Prothrombin time (PT)on 32-47-1016JU Coag (PPP) [Time]10.3 s 9.0-11.6FWooster Community HospitalPT Coag (PPP) [Time]Prothrombin time (PT)9.0-11.6FWooster Community HospitalRB Auto (Bld) [#/Vol]on 12-26-2023 RBC (Bld) [#/Vol]4.95 10 6/uL4.70-6.10[facility] HospitalRBC (Bld) [#/Vol]Erythrocytes [#/volume] in Blood by Automated count4.70-6.10Peoples Hospitalerum or plasma albumin/globulin mass ratioOrdered By: Tr Garcia on 00-24-6638Vmvfhwr/Globulin [Mass ratio]1.7 {ratio} [facility] HospitalAlbumin/Globulin [Mass ratio]Serum or plasma albumin/globulin mass ratioPeoples Hospitalerum or plasma albumin/globulin mass ratioon 54-49-5194Foozmkj/Globulin [Mass ratio]1.2 {ratio} [facility] HospitalAlbumin/Globulin [Mass ratio]Serum or plasma albumin/globulin mass ratioPeoples Hospitalerum or plasma anion gap determinationon 30-33-9090Dljbc gap [Moles/Vol]9.9 mmol/LFWooster Community HospitalAnion gap [Moles/Vol]Serum or plasma anion gap determinationPeoples Hospitalerum or plasma non-glucuronidated bilirubin measurement (mass/volume)Ordered By: Tr Garcia on 41-57-9689Nxkauodyw.indirect [Mass/Vol]0.3 mg/dLThe [facility]vue HospitalBilirubin.indirect [Mass/Vol]Serum or plasma non-glucuronidated bilirubin measurement (mass/volume)[facility] HospitalaPTT in Platelet poor plasma by Coagulation assayOrdered By: Tr Garcia on 96-53-0377nCGO Coag (PPP) [Time]Activated partial thromboplastin time (aPTT) in platelet poor plasma by coagulation a25.1-36.5FWooster Community HospitalComment on above:A hematocrit value greater than 55% may lead to inaccurate results in coagulation testing. Patientshaving hematocrit values >55% require a special collection tube for coagulation studies. Please contact the laboratory at [phone] for redraw instructions.Ambulatory Visit Summaryon 11-15-2023 Ambulatory Visit SummaryAmbulatory Visit Summary JESSE GARRISON :1950 Visit Date:11/15/2023 Ambulatory Visit Instructions Your Diagnosis Hx of bladder cancer Lesion of bladder Elevated PSA Enlarged prostate with urinary obstruction Your Care Team Attending Physician - MACI BLAKE, Patito Garcia Primary Care Physician - CHIKI BARKER, ANTONI This Is Your Medications List ciprofloxacin (Cipro 500 mg Tab) Contact prescribing physician if questions or concerns lisinopril (lisinopril 20 mg Tab) metformin (metformin 1000 mg Tab) Procedures Performed Cystoscopy (11/15/2023), Cystoscopy (05/31/2023), Cystoscopy (05/18/2022), Cystoscopy (10/27/2021),Cystoscopy (07/28/2021), Cystoscopy (04/21/2021), Cystoscopy (01/20/2021), Cystoscopy (10/14/2020),Cystoscopy (06/17/2020), Cystoscopy (03/03/2020), Ablation of neoplasm of [...] [facility] [address], [place] [address]- Medications What How Much When Instructions Unchanged [...] or past use of tobacco products or beingoverweight. What are the benefits of screening? Cancer [...] a flexible tube with a small camera isinserted into the rectum. ? CT colonography. This [...] stool. For this test, (more content not included)...[facility] HospitalU[facility] Office/Clinic Noteon 29-97-2374Zvktzbg Office/Clinic NoteUrology Office/Clinic Note Chief Complaint hx of bladder cancer HPI Staff Pt here for a 6 mos cysto, FISH/cytology due to hx of bladder cancer. Abx taken. PSA: 06/09/23 - 2.42 History of Present Illness Tests reviewed: reviewed cysto note, PSAs I have reviewed the previous health record information and history for this patient from Dr. Lux. I have reviewed and verified the staff [...] [facility] [address], [place] [address]- Additional Instructions: 1 yr cysto and PSA Patient Education Cancer Screening for Males I, Irma Vance, personally scribed for Dr. Lux on 11/15/2023 07:58:40. . Documentation recorded by the scribe, Irma Vance, accurately reflects the services(s) I performed and decisions made by me. Authenticated by Dr. Lux on 11/15/2023 08:00:26. Problem List/Past Medical History Ongoing Bladder cancer BMI 28.0-28.9,adult Diabetes Elevated PSA Enlarged prostate with urinary obstruction History of skin cancer History of urinary retention Hx of bladder cancer Hx of hepatitis Hypertension Smoker Historical Lesion of bladder Procedure/Surgical History Cystoscopy (11/15/2023), Cystoscopy (05/31/2023), Cystoscopy (05/18/2022), Cystoscopy (10/27/2021),Cystoscopy (07/28/2021), Cystoscopy (04/21/2021), Cystoscopy (01/20/2021), Cystoscopy (10/14/2020),Cystoscopy (06/17/2020), Cystoscopy (03/03/2020), Ablation of neoplasm of urinary bladder using laser (11/19/2019), Cystoscope (11/05/2019), Cystoscopy (07/30/2019), Cystoscope (02/20/2019), Cystoscopy ( (more content not included)...German HospitalComment on above:Result Comment: Electronically Signed By: Patito LUX MD\.br\Date and Time Signed: 11/15/23 08:00 EDT\.br\Electronically Co-Signed By: Irma Vance\.br\Date and Time Co-Signed: 11/15/23 07:58 EDT No Panel Informationon 16-46-0323Dcljytfq Specific Antigen Total2.59 ng/mL<=4.00 [facility] HospitalGlucose mean value [Mass/volume] in Blood Estimated from glycated hemoglobinon 75-79-9668Hhppfui glucose Estimated from glycated hemoglobin (Bld) [Mass/Vol]148 mg/dLThe [facility] - Hematology and Cell countson 62-37-5281UdT8f (Bld) [Mass fraction] 6.8 %High4.5-6.2FWooster Community HospitalComment on above:ADA RECOMMENDED LIMIT 4.0 - 6.0ADA THERAPEUTIC TARGET < 7.0ACTION SUGGESTED> 7.0 GLYCOHEMOGLOBIN A1Con 09-83-4160GAN RECOMMENDATIONSEE BELOWMercy Health Kings Mills HospitalComment on above:Result Comment: ADA RECOMMENDED LIMIT 4.0 - 6.0 ADA THERAPEUTIC TARGET < 7.0 ACTION SUGGESTED > 7.0Performed By: #### A1C #### [facility] [address] [address] [address] Gil SmithGlucose [Mass/Vol]137 mg/dLMercy Health Kings Mills HospitalComment on above:Performed By: #### A1C #### [facility] [address] [address] [address] Gil SmithHbA1c (Bld) [Mass fraction]6.4 %Critically high4.5-6.2The [facility] MemorialComment on above:Performed By: #### A1C #### [facility] [address] [address] [address] Gil LopezALBUMIN, RAND URon 27-52-7234qUJI<1.3Normal<=30.0The [facility] MemorialComment on above:Performed By: #### BMP #### [facility] [address] [address] [address] Gil SmithCT ABD/PELVIS WO CONon 86-40-0220BS ABD/PELVIS WO CONEXAM: CT ABD/PELVIS WO CON REASON FOR EXAM: [...] Electronically authenticated by: HALLEY RAMIRES Date: 2021-11-13 22:56NormSt. Rita's Hospitale Knoxboro HospitalCULTURE URINEon 34-94-8033FNMWCBE URINECulture Observations: NO GROWTH.NormalBarnesville HospitalComment on above:Performed By: #### BMP #### [facility] [address] [place] [address] Dr. Gil Carmona URINE PROFILEon 74-93-4737Inxaqanbv Ql (U)MODERATEAbnormal NEGATIVEThe [facility] MemorialComment on above:Performed By: #### A1C #### [facility] [address] [place] [address] Dr. Gil SmithClisaura (U)CLEARNormalCLEARBarnesville HospitalComment on above: Performed By: #### A1C #### [facility] [address] [place] [address] Dr. Gil Regan (U)REDAbnormalYELLOWThe [facility] MemorialComment on above: Performed By: #### A1C #### [facility] [address] [place] [address] Dr. Gil German micrscopic examination will be performed if indicated. NormalThe [facility] MemorialComment on above:Performed By: #### A1C #### [facility] [address] [place] [address] Dr. Gil SmithGlucose Ql (U)NegativeNormalNEGATIVEBarnesville HospitalComment on above:Performed By: #### A1C #### [facility] [address] [place] [address] Dr. Yilan ChangHemoglobin Ql (U)LARGEAbnormalNEGOhioHealth O'Bleness Hospital Comment on above:Performed By: #### A1C #### [facility] [address] [address] [address] Gil Wills Ql (U)40 mg/dlAbnormalNEGATIVEBarnesville Hospital Comment on above:Performed By: #### A1C #### [facility] [address] [address] [address] Gil SmithLEUKOCYTESMODERATEAbnormalNEGATIVEBarnesville HospitalComment on above:Performed By: #### A1C #### [facility] [address] [place] [address] Dr. Gil SmithNitrite Ql (U)PositiveAbnormalNEGOhioHealth O'Bleness Hospital Comment on above:Performed By: #### A1C #### [facility] [address] [place] [address] Dr. Gil SmithpH (U)8.5 [pH]Normal5-9Barn[facility]ville HospitalComment on above: Performed By: #### A1C #### [facility] [address] [place] [address] Dr. Gil SmithProtein (U) [Mass/Vol]100 mg/dLAbnormalNEGATIVE/ TRACEThe [facility] MemorialComment on above:Performed By: #### A1C #### [facility] [address] [place] [address] Dr. Gil SmithSPEC GRAVITY1.162Tlvmwt5.005-<=1.025The [facility] MemorialComment on above:Performed By: #### A1C #### [facility] [address] [place] [address] Dr. Gil SmithUR MICRO INDINDICATEDNormalThe [facility] MemorialComment on above: Performed By: #### A1C #### [facility] [address] [place] [address] Dr. Gil SmithUrobilinogen Qn (U)2.0 {Ross'U}/dLAbnormal0.2 - 1.0The [facility] MemorialComment on above:Performed By: #### A1C #### [facility] [address] [address] [address] Gil Barrett MICROSCOPIC ONLYon 05-71-3468ZVFHWNKDMXUNWUgvyqbjvJPRO SEEN [facility] on above:Result Comment: Previously reported as: MODERATE On 11/13/2021 23:51 By [id number] By: #### A1C #### [facility] [address] [address] [address] Gil Moore identified Cx Nom (U)INDICATEDNormalThCleveland Clinic Marymount HospitalComment on above:Performed By: #### A1C #### [facility] [address] [address] [address] Gil Owen SEENNormalNONE SEENTrinity Health System [facility] on above:Performed By: #### A1C #### [facility] [address] [place] [address] Dr. Gil Bernsteinystals LM Nom (Urine sed)NONE SEENNormalNONE SEENTrinity Health System [facility] on above:Performed By: #### A1C #### [facility] [address] [place] [address] Dr. Cordero ChangEpithelial cells LM Ql (Urine sed)RARENormalNONE SEEN /RARETrinity Health System [facility] on above:Performed By: #### A1C #### [facility] [address] [place] [address] Dr. Gil West SEENNormalNONE SEENTrinity Health System [facility] on above:Performed By: #### A1C #### [facility] [address] [place] [address] Dr. Gil NobleSxukpOEE2-1Msgjug2-4Lix [facility] on above:Result Comment: Previously reported as: >100 On 11/13/2021 23:51 By [id number] By: #### A1C #### [facility] [address] [place] [address] Dr. Gil PatelBC2-5AbnormalNONE SEENTrinity Health System [facility] on above: Performed By: #### A1C #### [facility] [address] [address] [address] Gil Urbina AUTO DIFFon [id number] #0.0 103/ulNormal0.0-0.1The [facility] MemorialComment on above:Performed By: #### A1C #### [facility] [address] [address] [address] Gil SmithBasophils/100 WBC (Bld)0.2 %Normal0.2-2.0The [facility] Comment on above:Performed By: #### A1C #### [facility] [address] [place] [address] Dr. Gil Alarcon #0.2 103/ulNormal0.0-0.7The [facility] MemorialComment on above: Performed By: #### A1C #### [facility] [address] [place] [address] Dr. Gil Maysosinophils/100 WBC (Bld)1.8 %Normal0.9-7.0The [facility] Comment on above:Performed By: #### A1C #### [facility] [address] [place] [address] Dr. Gil Maysrythrocyte distribution width (RBC) [Ratio]11.9 %Uxbmsb08.0-15.0 The [facility] MemorialComment on above:Performed By: #### A1C #### [facility] [address] [place] [address] Dr. Gil SmithHematocrit (Bld) [Volume fraction]44.5 %Psquyk61.0-54.0The [facility] MemorialComment on above:Performed By: #### A1C #### [facility] [address] [place] [address] Dr. Gil SmithHemoglobin (Bld) [Mass/Vol]15.6 g/nJNddmxr19.0-18.0The [facility] MemorialComment on above:Performed By: #### A1C #### [facility] [address] [place] [address] Dr. Gil Pastor #0.05 10e3/ulCritically high0.00-0.03The [facility] Comment on above:Performed By: #### A1C #### [facility] [address] [address] [address] Gil Pastor %0.4 %Normal0.0-0.5The [facility] MemorialComment on above: Performed By: #### A1C #### [facility] [address] [address] [address] Gil Bedolla #2.1 103/ulNormal1.2-3.8The [facility] MemorialComment on above:Performed By: #### A1C #### [facility] [address] [address] [address] Gil Barneshocytes/100 WBC (Bld)16.3 %Critically low20.5-60.0The [facility] MemorialComment on above:Performed By: #### A1C #### [facility] [address] [place] [address] Dr. Gil Eugene DIFF REQNONormalThe [facility] MemorialComment on above: Performed By: #### A1C #### [facility] [address] [place] [address] Dr. Gil Nam (RBC) [Entitic mass]30.2 rzFsqiwb95.9-34.0The [facility] MemorialComment on above:Performed By: #### A1C #### [facility] [address] [place] [address] Dr. Gil Raymond (RBC) [Mass/Vol]35.1 g/nXZfeara34.9-35.2The [facility] MemorialComment on above:Performed By: #### A1C #### [facility] [address] [place] [address] Dr. Gil Raymond (RBC) [Entitic vol]86.2 kKSolybm15.0-94.0The [facility] MemorialComment on above:Performed By: #### A1C #### [facility] [address] [place] [address] Dr. Gil Galdamez #0.7 103/ulNormal0.3-0.8The [facility] MemorialComment on above:Performed By: #### A1C #### [facility] [address] [place] [address] Dr. Gil Rockocytes/100 WBC (Bld)5.3 %Normal1.7-12.0The [facility] Comment on above:Performed By: #### A1C #### [facility] [address] [place] [address] Dr. Gil Escobar #9.8 103/ulCritically high1.4-6.5The [facility] Comment on above:Performed By: #### A1C #### [facility] [address] [place] [address] Dr. Gil Ritterutrophils/100 WBC (Bld)76.0 %Critically high43.0-75.0The [facility] MemorialComment on above:Performed By: #### A1C #### [facility] [address] [place] [address] Dr. Gil SmithPlatelet mean volume (Bld) [Entitic vol]9.4 fLCritically low 9.5-13.5The [facility] MemorialComment on above:Performed By: #### A1C #### [facility] [address] [place] [address] Dr. Gil SmithPLT334 103/hzVbofhp427-179Tac [facility] MemorialComment on above: Performed By: #### A1C #### [facility] [address] [place] [address] Dr. Gil SmithRBC5.16 106/ulNormal4.70-6.10The [facility] MemorialComment on above:Performed By: #### A1C #### [facility] [address] [place] [address] Dr. Gil SmithWBC12.9 103/ulCritically high4.0-11.0The [facility] MemorialComment on above:Performed By: #### A1C #### [facility] [address] [place] [address] Dr. Gil SmithPROF CHEM 8 (BAS METB)on 42-81-6016Hucqt gap [Moles/Vol]10.6 mmol/LNormalThe [facility] MemorialComment on above:Performed By: #### BMP #### [facility] [address] [place] [address] Dr. Gil SmithCalcium [Mass/Vol]9.1 mg/dLNormal8.5-10.1The [facility] Comment on above:Performed By: #### BMP #### [facility] [address] [address] [address] Gil SmithChloride [Moles/Vol]101 mmol/UUczhmt09-652Efc [facility] Comment on above:Performed By: #### BMP #### [facility] [address] [place] [address] Dr. Gil SmithCO2 [Moles/Vol]30.7 mmol/CHyraus33.0-32.0The [facility] Comment on above:Performed By: #### BMP #### [facility] [address] [place] [address] Dr. Gil SmithCreatinine [Mass/Vol]1.14 mg/dLNormal0.70-1.30The [facility] MemorialComment on above:Performed By: #### BMP #### [facility] [address] [place] [address] Dr. Gil MaysGFR-AF DUTCH>60Normal>=60The [facility] MemorialComment on above:Performed By: #### BMP #### [facility] [address] [place] [address] Dr. Gil MaysGFR-NON AF DUTCH>60Normal>=60The [facility] MemorialComment on above:Performed By: #### BMP #### [facility] [address] [place] [address] Dr. Gil SmithGlucose [Mass/Vol]181 mg/dLCritically gpbr35-549Vac [facility] MemorialComment on above:Performed By: #### BMP #### [facility] [address] [place] [address] Dr. Gil SmithPotassium [Moles/Vol]4.3 mmol/LNormal3.5-5.1The [facility] Comment on above:Performed By: #### BMP #### [facility] [address] [address] [address] Gil SmithSodium [Moles/Vol]138 mmol/OUbggtw824-295Say [facility] Comment on above:Performed By: #### BMP #### [facility] [address] [place] [address] Dr. Gil SmithUrea nitrogen [Mass/Vol]19.0 mg/dLCritically high7.0-18.0[facility] HospitalComment on above:Performed By: #### BMP #### [facility] [address] [place] [address] Dr. Gil Patterson nitrogen/Creatinine [Mass ratio]16.7 mg/mgNormalThe [facility] MemorialComment on above:Performed By: #### BMP #### [facility] [address] [place] [address] Dr. Gil SmithPOINT OF CARE GLUCOSEon 57-75-2086Dnwuaol [Mass/Vol]115 mg/dL Critically qfhb24-296UcjBarnesville HospitalComment on above:Performed By: #### POCGLUC #### [facility] [address] [place] [address] Dr. Gil SmithCovid-19 PCR ([facility])on 06-72-4734FYHF-CoV-2 (COVID-19) RNA ITA+probe Ql (Unsp spec)Not detectedNormalNOT DETECTEDThe [facility] Comment on above:Result Comment: This test is not yet approved or cleared by the [place] FDA. When there are no FDA-approved or cleared tests available, and other criteria are met, FDA can make tests available under an emergency access mechanism called an Emergency Use Authorization (EUA). The EUA for this test is supported by the [place] of Health and Human Service's (HHS's) declaration that circumstances exist to justify the emergency use of in vitro diagnostics for the detection and/or diagnosis of the virus that causes COVID- 19. This EUA will remain in effect (meaning [...] of clinical signs and symptoms consistent with SARS-CoV-2.Performed By: #### CVDTBH #### [facility] [address] [place] [address] Dr. Gil Urbina AUTO DIFFon 23-08-8166ATCD #0.0 103/ulNormal0.0-0.1The [facility] MemorialComment on above:Performed By: #### CBC #### [facility] [address] [place] [address] Dr. Gil SmithBasophils/100 WBC (Bld)0.3 %Normal0.2-2.0[facility] Comment on above:Performed By: #### CBC #### [facility] [address] [place] [address] Dr. Gil Alarcon #0.3 103/ulNormal0.0-0.7The [facility] MemorialComment on above: Performed By: #### CBC #### [facility] [address] [place] [address] Dr. Gil Maysosinophils/100 WBC (Bld)2.8 %Normal0.9-7.0[facility] Comment on above:Performed By: #### CBC #### [facility] [address] [place] [address] Dr. Gil Maysrythrocyte distribution width (RBC) [Ratio]11.9 %Wvslmc03.0-15.0 The [facility] MemorialComment on above:Performed By: #### CBC #### [facility] [address] [place] [address] Dr. Gil SmithHematocrit (Bld) [Volume fraction]45.4 %Dhtemr29.0-54.0[facility] HospitalComment on above:Performed By: #### CBC #### [facility] [address] [place] [address] Dr. Yilan ChangHemoglobin (Bld) [Mass/Vol]15.2 g/zLGbrerx42.0-18.0The [facility] MemorialComment on above:Performed By: #### CBC #### [facility] [address] [place] [address] Dr. Gil Pastor #0.02 10e3/ulNormal0.00-0.03The [facility] MemorialComment on above:Performed By: #### CBC #### [facility] [address] [place] [address] Dr. Gil Pastor %0.2 %Normal0.0-0.5The [facility] MemorialComment on above: Performed By: #### CBC #### [facility] [address] [place] [address] Dr. Gil Bedolla #2.3 103/ulNormal1.2-3.8The [facility] MemorialComment on above:Performed By: #### CBC #### [facility] [address] [place] [address] Dr. Gil Barneshocytes/100 WBC (Bld)26.1 %Vmcflv41.5-60.0The [facility] MemorialComment on above:Performed By: #### CBC #### [facility] [address] [place] [address] Dr. Gil BoydUAL DIFF REQNONormalThe [facility] MemorialComment on above: Performed By: #### CBC #### [facility] [address] [place] [address] Dr. Gil Nam (RBC) [Entitic mass]29.7 zjRsmkuk06.9-34.0The [facility] MemorialComment on above:Performed By: #### CBC #### [facility] [address] [place] [address] Dr. Gil Raymond (RBC) [Mass/Vol]33.5 g/hKKxxoan97.9-35.2The [facility] HospitalComment on above:Performed By: #### CBC #### [facility] [address] [place] [address] Dr. Gil Elliott (RBC) [Entitic vol]88.8 oPJqlefc16.0-94.0The [facility] MemorialComment on above:Performed By: #### CBC #### [facility] [address] [place] [address] Dr. Gil Galdamez #0.4 103/ulNormal0.3-0.8The [facility] MemorialComment on above:Performed By: #### CBC #### [facility] [address] [place] [address] Dr. Gil Rockocytes/100 WBC (Bld)4.6 %Normal1.7-12.0The [facility] Comment on above:Performed By: #### CBC #### [facility] [address] [place] [address] Dr. Gil Escobar #5.9 103/ulNormal1.4-6.5The [facility] MemorialComment on above:Performed By: #### CBC #### [facility] [address] [place] [address] Dr. Gil Ritterutrophils/100 WBC (Bld)66.0 %Oywwmj74.0-75.0The [facility] MemorialComment on above:Performed By: #### CBC #### [facility] [address] [place] [address] Dr. Gil Ornelas mean volume (Bld) [Entitic vol]9.3 fLCritically low 9.5-13.5The [facility] MemorialComment on above:Performed By: #### CBC #### [facility] [address] [place] [address] Dr. Gil SmithPLT306 103/uiWtsekf684-160Llc [facility] MemorialComment on above: Performed By: #### CBC #### [facility] [address] [place] [address] Dr. Gil SmithRBC5.11 106/ulNormal4.70-6.10The [facility] MemorialComment on above:Performed By: #### CBC #### [facility] [address] [place] [address] Dr. Gil SmithWBC8.9 103/ulNormal4.0-11.0The [facility] MemorialComment on above: Performed By: #### CBC #### [facility] [address] [address] [address] Gil DuronF CHEM 8 (BAS METB)on 90-06-9979Rlyqe gap [Moles/Vol]9.5 mmol/LNormalThe [facility] MemorialComment on above:Performed By: #### BMP #### [facility] [address] [place] [address] Dr. Gil SmithCalcium [Mass/Vol]9.2 mg/dLNormal8.5-10.1The [facility] Comment on above:Performed By: #### BMP #### [facility] [address] [place] [address] Dr. Gil SmithChloride [Moles/Vol]103 mmol/LEhdyfb95-818Ceh [facility] Comment on above:Performed By: #### BMP #### [facility] [address] [place] [address] Dr. Gil SmithCO2 [Moles/Vol]30.5 mmol/BSthvby12.0-32.0The [facility] Comment on above:Performed By: #### BMP #### [facility] [address] [place] [address] Dr. Gil SmithCreatinine [Mass/Vol]1.00 mg/dLNormal0.70-1.30The [facility] MemorialComment on above:Performed By: #### BMP #### [facility] [address] [place] [address] Dr. Cordero ChangEGFR-AF DUTCH>60Normal>=60The [facility] MemorialComment on above:Performed By: #### BMP #### [facility] [address] [place] [address] Dr. Gil MaysGFR-NON AF DUTCH>60Normal>=60The [facility] MemorialComment on above:Performed By: #### BMP #### [facility] [address] [place] [address] Dr. Gil SmithGlucose [Mass/Vol]120 mg/dLCritically dith42-327KyrBarnesville HospitalComment on above:Performed By: #### BMP #### [facility] [address] [place] [address] Dr. Gil SmithPotassium [Moles/Vol]5.0 mmol/LNormal3.5-5.1[facility] Comment on above:Performed By: #### BMP #### [facility] [address] [address] [address] Gil SmithSodium [Moles/Vol]138 mmol/YQomwdc529-744RgtBarnesville Hospital Comment on above:Performed By: #### BMP #### [facility] [address] [place] [address] Dr. Gil SmithUrea nitrogen [Mass/Vol]13.0 mg/dLNormal7.0-18.0Barnesville HospitalComment on above:Performed By: #### BMP #### [facility] [address] [place] [address] Dr. Gil Patterson nitrogen/Creatinine [Mass ratio]13.0 mg/mgNoOhioHealthComment on above:Performed By: #### BMP #### [facility] [address] [place] [address] Dr. Gil SmithPROTIMEon 72-68-6901ATA Coag (PPP) [Relative time]1.00 {INR} NormalBarnesville HospitalComment on above:Performed By: #### BMP #### [facility] [address] [place] [address] Dr. Gil Shah GUIDELINESSEE BELOWMercy Health Kings Mills HospitalComment on above:Result Comment: DESIRED INR: 2.0 - 3.0 CONDITIONS NOT LISTED BELOW 2.5 - 3.5 FOR PROSTHETIC HEART VALVE REPLACEMENT 2.5 - 3.5 RECURRENT THROMBOSIS Performed By: #### BMP #### [facility] [address] [place] [address] Dr. Gil SmithPT Coag (PPP) [Time]10.8 sNormal9.0-11.6ThCleveland Clinic Mary[facility] Comment on above:Performed By: #### BMP #### [facility] [address] [place] [address] Dr. Gil SmithPTJesse 17-12-8971oPLQ Coag (Bld) [Time]27.7 mNkdaim22.3-36.2The [facility] MemorialComment on above:Performed By: #### PT, PTT #### [facility] [address] [place] [address] Dr. Gil SmithXR CHEST 2 Von [id number] CHEST 2 VEXAM: XR CHEST 2 V HISTORY: Essential hypertension [...] Electronically authenticated by: DANAY ROSADO Date: 2021-11-01 16:55NoOhioHealthGLYCOHEMOGLOBIN A1Con [id number] RECOMMENDATIONSEE BELOW NormalThe [facility] MemorialComment on above:Result Comment: ADA RECOMMENDED LIMIT 4.0 - 6.0 ADA THERAPEUTIC TARGET < 7.0 ACTION SUGGESTED > 7.0Performed By: #### BMP #### [facility] [address] [place] [address] Dr. Gil SmithGlucose [Mass/Vol]140 mg/dLNoOhioHealthComment on above:Performed By: #### BMP #### [facility] [address] [place] [address] Dr. Gil SmithHbA1c (Bld) [Mass fraction]6.5 %Critically high4.5-6.2The [facility] MemorialComment on above:Performed By: #### BMP #### [facility] [address] [place] [address] Dr. Gil SmithGLYCOHEMOGLOBIN A1Con [id number] RECOMMENDATIONADA THERAPEUTIC TARGET 6.0 - 7.0 ACTION SUGGESTED > 7.0NoOhioHealthComment on above:Performed By: #### A1C #### [facility] [address] [address] [address] Gil SmithGlucose [Mass/Vol]137 mg/dLNormalThe [facility] MemorialComment on above:Performed By: #### A1C #### [facility] [address] [address] [address] Gil SmithHbA1c (Bld) [Mass fraction]6.4 %Critically high<=6.0The [facility] MemorialComment on above:Performed By: #### A1C #### [facility] [address] [address] [address] Gil SmithPSA SCREENING LABCORPon 61-81-8503Dyneaayx specific Ag [Mass/Vol] 1.5 ng/mLNormal0.0-4.0The [facility] on above:Result Comment: Maria Eugenia ECLIA methodology. . According to the [place] [employer], Serum PSA should decrease and [...] of the presence or absence of malignant disease.Performed By: #### PSASCLC #### [facility] [address] [place] [address] Dr. Gil Lora D 25-OH LABCORPon 08-27-3430Ldgsuvr D, 25-Viudzcp37.9 ng/mL Ozdqdm23.0-100.0The [facility] on above:Result Comment: Vitamin D deficiency has been defined by the [place] of [employer] and an Endocrine Society practice guideline as a level of serum 25-OH vitamin D less than 20 ng/mL (1,2). The Endocrine Society went on to further define vitamin D insufficiency as a level between 21 and 29 ng/mL (2). 1. IOM ([place] of [employer]). 2010. Dietary reference intakes for calcium and D. [place]: The National Academies Press. 2. Pedro MF, Rosa Elena [place], Jamison XIONG, et al. Evaluation, treatment, and prevention of vitamin D deficiency: an Endocrine Society clinical practice guideline. JCEM. 2010; 96(7):1911-30.Performed By: #### BMP #### [facility] [address] [place] [address] Dr. Gil EstradaC AUTO DIFFon 35-33-4000YQIL #0.0 103/ulNormal0.0-0.1The [facility] MemorialComment on above:Performed By: #### BMP #### [facility] [address] [place] [address] Dr. Gil SmithBasophils/100 WBC (Bld)0.5 %Normal0.2-2.0The [facility] Comment on above:Performed By: #### BMP #### [facility] [address] [place] [address] Dr. Gil Alarcon #0.3 103/ulNormal0.0-0.7The [facility] MemorialComment on above: Performed By: #### BMP #### [facility] [address] [place] [address] Dr. Gil Maysosinophils/100 WBC (Bld)3.0 %Normal0.9-7.0The [facility] Comment on above:Performed By: #### BMP #### [facility] [address] [place] [address] Dr. Gil Maysrythrocyte distribution width (RBC) [Ratio]12.1 %Qtqypw20.0-15.0 The [facility] MemorialComment on above:Performed By: #### BMP #### [facility] [address] [place] [address] Dr. Gil SmithHematocrit (Bld) [Volume fraction]45.2 %Zstahu23.0-54.0The [facility] MemorialComment on above:Performed By: #### BMP #### [facility] [address] [place] [address] Dr. Gil SmithHemoglobin (Bld) [Mass/Vol]15.1 g/jRAuaujr27.0-18.0The [facility] MemorialComment on above:Performed By: #### BMP #### [facility] [address] [place] [address] Dr. Gil Pastor #0.03 10e3/ulNormal0.00-0.03The [facility] on above:Performed By: #### BMP #### [facility] [address] [place] [address] Dr. Gil Pastor %0.4 %Normal0.0-0.5The [facility] MemorialComment on above: Performed By: #### BMP #### [facility] [address] [place] [address] Dr. Gil FarrellA.O. [facility] #2.7 103/ulNormal1.2-3.8The [facility] MemorialComment on above:Performed By: #### BMP #### [facility] [address] [place] [address] Dr. Gil Barneshocytes/100 WBC (Bld)31.9 %Ecqemb27.5-60.0The [facility] on above:Performed By: #### BMP #### [facility] [address] [place] [address] Dr. Gil SmithVOSSBURGUAL DIFF REQNONormalThe [facility] MemorialComment on above: Performed By: #### BMP #### [facility] [address] [place] [address] Dr. Gil Raymond (RBC) [Entitic mass]29.6 jaUrfuxc08.9-34.0The [facility] MemorialComment on above:Performed By: #### BMP #### [facility] [address] [place] [address] Dr. Gil Raymond (RBC) [Mass/Vol]33.4 g/jLDzqeek40.9-35.2The [facility] MemorialComment on above:Performed By: #### BMP #### [facility] [address] [place] [address] Dr. Gil Raymond (RBC) [Entitic vol]88.6 uWRipkvs44.0-94.0The [facility] MemorialComment on above:Performed By: #### BMP #### [facility] [address] [address] [address] Gil Galdamez #0.4 103/ulNormal0.3-0.8The [facility] MemorialComment on above:Performed By: #### BMP #### [facility] [address] [address] [address] iGl Rockocytes/100 WBC (Bld)4.9 %Normal1.7-12.0The [facility] Comment on above:Performed By: #### BMP #### [facility] [address] [place] [address] Dr. Gil Escobar #4.9 103/ulNormal1.4-6.5The [facility] MemorialComment on above:Performed By: #### BMP #### [facility] [address] [place] [address] Dr. Gil Ritterutrophils/100 WBC (Bld)59.3 %Tzzqhd96.0-75.0The [facility] MemorialComment on above:Performed By: #### BMP #### [facility] [address] [place] [address] Dr. Gil Ornelas mean volume (Bld) [Entitic vol]9.0 fLCritically low 9.5-13.5The [facility] MemorialComment on above:Performed By: #### BMP #### [facility] [address] [place] [address] Dr. Gil SmithPLT307 103/ntHkdszt333-515Ucn [facility] MemorialComment on above: Performed By: #### BMP #### [facility] [address] [place] [address] Dr. Gil SmithRBC5.10 106/ulNormal4.70-6.10The [facility] MemorialComment on above:Performed By: #### BMP #### [facility] [address] [place] [address] Dr. Gil SmithWBC8.3 103/ulNormal4.0-11.0The [facility] MemorialComment on above: Performed By: #### BMP #### [facility] [address] [address] [address] Gil TidwellCOHEMOGLOBIN A1Con 17-80-2660OUW RECOMMENDATIONADA THERAPEUTIC TARGET 6.0 - 7.0 ACTION SUGGESTED > 7.0NormVan Wert County HospitalComment on above:Performed By: #### A1C #### [facility] [address] [address] [address] Gil SmithGlucose [Mass/Vol]131 mg/dLNormVan Wert County HospitalComment on above:Performed By: #### A1C #### [facility] [address] [address] [address] Gil SmithHbA1c (Bld) [Mass fraction]6.2 %Critically high<=6.0The [facility] MemorialComment on above:Performed By: #### A1C #### [facility] [address] [place] [address] Dr. Gil SmithMICROALBUMIN, RAND URon 43-59-8650wWNW<1.3Normal<=30.0The [facility] MemorialComment on above:Performed By: #### BMP #### [facility] [address] [address] [address] Gil SmithPROF CHEM 8 (BAS METB)on 71-37-7646Ngccd gap [Moles/Vol]8.6 mmol/LNormalThe [facility] MemorialComment on above:Performed By: #### BMP #### [facility] [address] [address] [address] Gil SmithCalcium [Mass/Vol]9.1 mg/dLNormal8.4-10.2The [facility] Comment on above:Performed By: #### BMP #### [facility] [address] [address] [address] Gil SmithChloride [Moles/Vol]103 mmol/WCcscfx08-511Adq [facility] Comment on above:Performed By: #### BMP #### [facility] [address] [address] [address] Gil SmithCO2 [Moles/Vol]31.5 mmol/LCritically high22.0-30.0The [facility] MemorialComment on above:Performed By: #### BMP #### [facility] [address] [place] [address] Dr. Gil SmithCreatinine [Mass/Vol]0.89 mg/dLNormal0.66-1.25The [facility] MemorialComment on above:Performed By: #### BMP #### [facility] [address] [place] [address] Dr. Gil MaysGFR-AF DUTCH>60Normal>=60The [facility] MemorialComment on above:Performed By: #### BMP #### [facility] [address] [place] [address] Dr. Gil MaysGFR-NON AF DUTCH>60Normal>=60The [facility] MemorialComment on above:Performed By: #### BMP #### [facility] [address] [place] [address] Dr. Gil SmithGlucose [Mass/Vol]117 mg/dLCritically xuzo23-836Uix [facility] MemorialComment on above:Performed By: #### BMP #### [facility] [address] [place] [address] Dr. Gil SmithPotassium [Moles/Vol]4.1 mmol/LNormal3.4-5.0[facility] Comment on above:Performed By: #### BMP #### [facility] [address] [place] [address] Dr. Gil SmithSodium [Moles/Vol]139 mmol/LKzpwgg052-238Img [facility] Comment on above:Performed By: #### BMP #### [facility] [address] [place] [address] Dr. Gil SmithUrea nitrogen [Mass/Vol]13.0 mg/dLNormal9.0-20.0The [facility] MemorialComment on above:Performed By: #### BMP #### [facility] [address] [place] [address] Dr. Gil SmithUrea nitrogen/Creatinine [Mass ratio]14.6 mg/mgNormalThe [facility] HospitalComment on above:Performed By: #### BMP #### [facility] [address] [address] [address] Gil Smith Vital Signs Date TimeVital SignValuePerforming HofivwnrgPgoxduya72-89-4283 08:36-0400Body .26 cmBenjamin Ball DO Work Phone: [phone])[address] [place], [place] 6293410-14-2025 08:36-0400 Body mass index (BMI) [Ratio]28.9 kg/r5Fvizxmuk Ball DO Work Phone: [phone] [place], [place] 6293410-14-2025 08:36-0400 Body .9 kgBenjamin Ball DO Work Phone: [phone] [place], [place] 6293410-14-2025 08:36-0400 Diastolic blood mm[Hg]Antoni Ball DO Work Phone: [phone] [place], [place] 6293410-14-2025 08:36-0400 Heart rate65 /minBenjamin Ball DO Work Phone: [phone] [place], [place] 6293410-14-2025 08:36-0400 Respiratory rate14 /minBenjamin Ball DO Work Phone: [phone] [place], [place] 6293410-14-2025 08:36-0400 SaO2% (BldA) [Mass fraction]98 %Antoni Ball DO Work Phone: [phone])[address] [place], [place] 6293410-14-2025 08:36-0400 Systolic blood hvjfvaqy030 mm[Hg]Antoni Ball DO Work Phone: [phone])[address] [place], [place] 6293409-30-2025 14:34-0400 Body buctya334.26 cmBenjamin Ball DO Work Phone: [phone] [place], [place] 6293409-30-2025 14:34-0400 Body mass index (BMI) [Ratio]29.1 kg/s1Cxaqbshu Ball DO Work Phone: [phone])[address] [place], [place] 6293409-30-2025 14:34-0400 Body apfdwu14.52 kgBenjamin Ball DO Work Phone: [phone] [place], [place] 6293409-30-2025 14:34-0400 Diastolic blood oympaudq42 mm[Hg]Antoni Ball DO Work Phone: [phone])[address] [place], [place] 6293409-30-2025 14:34-0400 Heart rate73 /minBenjamin Ball DO Work Phone: 1(419)[address] [place], [place] 6293409-30-2025 14:34-0400 Respiratory rate12 /minBenjamin Ball DO Work Phone: [phone])[address] [place], [place] 6293409-30-2025 14:34-0400 Systolic blood ritejyej517 mm[Hg]Antoni Ball DO Work Phone: 1(419)[address] [place], [place] 6293409-27-2025 12:00-0400 Diastolic blood xxtyorkt28 mm[Hg]Antoni Ball DO Work Phone: [phone])[address] [place], [place] 6293409-27-2025 12:00-0400 Heart rate62 /minBenjamin Ball DO Work Phone: [phone])[address] [place], [place] 6293409-27-2025 12:00-0400 Respiratory rate16 /minBenjamin Ball DO Work Phone: [phone])[address] [place], [place] 6293409-27-2025 12:00-0400 SaO2% (BldA) [Mass fraction]97 %Antoni Ball DO Work Phone: [phone])[address] [place], [place] 6293409-27-2025 12:00-0400 Systolic blood mm[Hg]Antoni Ball DO Work Phone: [phone])[address] [place], [place] 6293409-27-2025 09:00-0400 Body luisinubqqt30.1 [degF]Antoni Ball DO Work Phone: [address] [place], [place] 6293409-27-2025 05:55-0400 Body stibmf77.5 kgBenjamin Ball DO Work Phone: [phone])[address] [place], [place] 6293409-25-2025 22:46-0400 Body .26 cmBenjamin Ball DO Work Phone: [phone] [place], [place] 6527509-25-2025 22:46-0400 Body gnsevthihex27.8 [degF]Antoni Ball DO Work Phone: [phone])[address] [place], [place] 6293409-25-2025 22:46-0400 Body .9 kgBenjamin Ball DO Work Phone: [phone])[address] [place], [place] 6293409-25-2025 22:46-0400 Diastolic blood zegkocqi47 mm[Hg]Antoni Ball DO Work Phone: 1(419)[address] [place], [place] 6293409-25-2025 22:46-0400 Heart rate65 /minBenjamin Ball DO Work Phone: [phone])[address] [place], [place] 6293409-25-2025 22:46-0400 Respiratory rate18 /minBenjamin Ball DO Work Phone: [phone])[address] [place], [place] 6293409-25-2025 22:46-0400 SaO2% (BldA) [Mass fraction]97 %Antoni Ball DO Work Phone: 1(971)[address] [place], [place] 6293409-25-2025 22:46-0400 Systolic blood drhvjdoo117 mm[Hg]Antoni Ball DO Work Phone: 1(683)[address] [place], [place] 6293409-23-2025 14:21-0400 Body avuagf879.26 cmBenjamin Ball DO Work Phone: 1(119)[address] [place], [place] 6293409-23-2025 08:00-0400 Body eqpqbconilp17.6 [degF]Antoni Ball DO Work Phone: 1(646)[address] [place], [place] 6293409-23-2025 08:00-0400 Diastolic blood oyiszutj67 mm[Hg]Antoni Ball DO Work Phone: 1(883)[address] [place], [place] 6293409-23-2025 08:00-0400 Heart rate62 /minBenjamin Ball DO Work Phone: 1(783)[address] [place], [place] 6293409-23-2025 08:00-0400 Respiratory rate18 /minBenjamin Ball DO Work Phone: 1(800)[address] [place], [place] 6293409-23-2025 08:00-0400 SaO2% (BldA) [Mass fraction]97 %Antoni Ball DO Work Phone: [phone])[address] [place], [place] 6293409-23-2025 08:00-0400 Systolic blood uoecvpky556 mm[Hg]Antoni Ball DO Work Phone: [phone])[address] [place], [place] 6293409-23-2025 06:00-0400 Body kfclho31.7 kgBenjamin Ball DO Work Phone: [phone])[address] [place], [place] 6293409-19-2025 12:43-0400 Diastolic blood quyttdoa54 mm[Hg]Antoni Ball DO Work Phone: 1(875)[address] [place], [place] 6293409-19-2025 12:43-0400 Heart rate73 /minBenjamin Ball DO Work Phone: [phone])[address] [place], [place] 6293409-19-2025 12:43-0400 Respiratory rate20 /minBenjamin Ball DO Work Phone: 1(596)[address] [place], [place] 6293409-19-2025 12:43-0400 SaO2% (BldA) [Mass fraction]100 %Antoni Ball DO Work Phone: 1(250)[address] [place], [place] 6293409-19-2025 12:43-0400 Systolic blood urhurrxr452 mm[Hg]Antoni Ball DO Work Phone: 1(515)[address] [place], [place] 6293409-19-2025 05:48-0400 Body lekftgiewyt87.3 [degF]Antoni Ball DO Work Phone: 1(219)[address] [place], [place] 6293409-19-2025 05:46-0400 Body manpwc467.26 cmBenjamin Ball DO Work Phone: 1(246)[address] [place], [place] 6293409-19-2025 05:46-0400 Body fynoel24.3 kgBenjamin Ball DO Work Phone: [address] [place], [place] 6293406-24-2025 08:49-0400 Body emcwns258.26 cmBenjamin Ball DO Work Phone: 1(225)[address] [place], [place] 6293406-24-2025 08:49-0400 Body mass index (BMI) [Ratio]30.4 kg/f0Etxmgdix Ball DO Work Phone: [phone]06-24-2025 08:49-0400 Body rerbkt62.44 kgBenjamin Ball DO Work Phone: [phone]06-24-2025 08:49-0400 Diastolic blood wvqvqowy08 mm[Hg]Antoni Ball DO Work Phone: [phone]06-24-2025 08:49-0400 Heart rate73 /minBenjamin Ball DO Work Phone: [phone]06-24-2025 08:49-0400 Respiratory rate12 /minBenjamin Ball DO Work Phone: [phone]06-24-2025 08:49-0400 SaO2% (BldA) [Mass fraction]98 %Antoni Ball DO Work Phone: [phone]06-24-2025 08:49-0400 Systolic blood mdihwoas403 mm[Hg]Antoni Ball DO Work Phone: [phone]04-30-2025 09:51-0400 Body atltaj588.3 cmWillchristine Mani DO Work Phone: [facility]04-30-2025 09:51-0400 Body mass index (BMI) [Ratio]30.63 kg/f6Wmrfhlp Mani DO Work Phone: [facility]04-30-2025 09:51-0400 Body hkkiud77.08 kgWiantonia Mani DO Work Phone: [facility]04-30-2025 09:51-0400 Diastolic blood wcjssikt27 mm[Hg]Ar Mani DO Work Phone: [facility]04-30-2025 09:51-0400 Heart rate76 /minNinirevachristine Mani DO Work Phone: [facility]04-30-2025 09:51-0400 Systolic blood ipshotqt363 mm[Hg]Ar Singleton DO Work Phone: [phone]12-11-2024 08:35-0500 Body .26 cmBenjamin Ball DO Work Phone: [phone]-[facility]12-11-2024 08:35-0500 Body mass index (BMI) [Ratio]31.4 kg/w4Yphpfqyn Ball DO Work Phone: [phone]12-11-2024 08:35-0500 Body jtaqmw92.7 kgBenjamin Ball DO Work Phone: [phone]12-11-2024 08:35-0500 Diastolic blood nnntfvyj01 mm[Hg]Antoni Ball DO Work Phone: [phone]12-11-2024 08:35-0500 Heart rate72 /minBenjamin Ball DO Work Phone: [phone]12-11-2024 08:35-0500 SaO2% (BldA) [Mass fraction]98 %Antoni Ball DO Work Phone: [phone]12-11-2024 08:35-0500 Systolic blood xksyzufj508 mm[Hg]Antoni Ball DO Work Phone: [phone]10-30-2024 11:54-0400 Body .8 cmWirevachristine Singleton DO Work Phone: [facility]10-30-2024 11:54-0400 Body mass index (BMI) [Ratio]29.41 kg/i7Obtotxd Mani DO Work Phone: [facility]10-30-2024 11:54-0400 Body iomrmg79.99 kgWirevachristine Bauerdon DO Work Phone: [facility]10-30-2024 11:54-0400 Diastolic blood adevruod60 mm[Hg]Ar Singleton DO Work Phone: [facility]10-30-2024 11:54-0400 Heart rate64 /Go Singleton DO Work Phone: [facility]10-30-2024 11:54-0400 Systolic blood mm[Hg]Ar Singleton DO Work Phone: [facility]10-25-2024 10:20-0400 Body xuncuz548.26 cmBenjamin Ball DO Work Phone: [phone] [place], [place] 6293410-25-2024 10:20-0400 Body mass index (BMI) [Ratio]30.3 kg/r8Qtnhvcgd Ball DO Work Phone: [phone])[address] [place], [place] 6293410-25-2024 10:20-0400 Body nhiebt78.09 kgBenjamin Ball DO Work Phone: 1(705)[address] [place], [place] 6293410-25-2024 10:20-0400 Diastolic blood rplvymfr50 mm[Hg]Antoni Ball DO Work Phone: 1(097)[address] [place], [place] 6293410-25-2024 10:20-0400 Heart rate48 /minBenjamin Ball DO Work Phone: [phone])[address] [place], [place] 6293410-25-2024 10:20-0400 SaO2% (BldA) [Mass fraction]97 %Antoni Ball DO Work Phone: [phone])[address] [place], [place] 6293410-25-2024 10:20-0400 Systolic blood mm[Hg]Antoni Ball DO Work Phone: 1(924)[address] [place], [place] 6293410-17-2024 14:23-0400 Body lybdjg979.26 cmBenjamin Ball DO Work Phone: 1(232)[address] [place], [place] 6293410-17-2024 12:13-0400 Body poezxkhxfyz33 [degF]DO Antoni Ball Work Phone: 1([phone])[address] [place], [place] 6293410-17-2024 12:13-0400 Diastolic blood qouakjwv87 mm[Hg]DO Antnoi Ball Work Phone: [phone]10-17-2024 12:13-0400 Heart rate62 /minDO Antoni Ball Work Phone: [phone])[address] [place], [place] 6293410-17-2024 12:13-0400 Respiratory rate18 /minDO Antoni Ball Work Phone: [phone])[address] [place], [place] 6293410-17-2024 12:13-0400 SaO2% (BldA) [Mass fraction]99 %DO Antoni Ball Work Phone: [phone])[address] [place], [place] 6293410-17-2024 12:13-0400 Systolic blood acoetwrn335 mm[Hg]DO Antoni Ball Work Phone: [phone])[address] [place], [place] 6293410-17-2024 05:47-0400 Body ytihvp23.5 kgDO Antoni Ball Work Phone: 1(628)[address] [place], [place] 6293410-15-2024 20:37-0400 Body .26 cmDO Antoni Ball Work Phone: 1(635)[address] [place], [place] 6293410-15-2024 13:07-0400 Body ejbvtl242.53 cmDO Antoni Ball Work Phone: 1(682)[address] [place], [place] 6293410-15-2024 13:07-0400 Body mass index (BMI) [Ratio]29.9 kg/m2DO Antoni Ball Work Phone: 1(671)[address] [place], [place] 6293410-15-2024 13:07-0400 Body ehpagy96.21 kgDO Antoni Ball Work Phone: 1(125)[address] [place], [place] 6293410-15-2024 13:07-0400 Diastolic blood pyxnhnto12 mm[Hg]DO Antoni Ball Work Phone: 1(375)[address] [place], [place] 6293410-15-2024 13:07-0400 Heart rate73 /minDO Antoni Ball Work Phone: 1(933)[address] [place], [place] 6293410-15-2024 13:07-0400 Respiratory rate12 /minDO Antoni Ball Work Phone: 1(102)[address] [place], [place] 6293410-15-2024 13:07-0400 SaO2% (BldA) [Mass fraction]96 %DO Antoni Ball Work Phone: [phone]10-15-2024 13:07-0400 Systolic blood exkussdp719 mm[Hg]DO Antoni Ball Work Phone: [phone]08-07-2024 11:59-0400 Body iktbcn974.53 cmDO Antoni Ball Work Phone: [phone]08-07-2024 11:59-0400 Body mass index (BMI) [Ratio]29.5 kg/m2DO Antoni Ball Work Phone: 1(152)[address] [place], [place] 6293408-07-2024 11:59-0400 Body .07 kgDO Antoni Ball Work Phone: 1(207)[address] [place], [place] 6293408-07-2024 11:59-0400 Diastolic blood hbssuhka96 mm[Hg]DO Antoni Ball Work Phone: [phone]08-07-2024 11:59-0400 Heart rate67 /minDO Antoni Ball Work Phone: 1(628)[address]08-07-2024 11:59-0400 Respiratory rate12 /minDO Antoni Ball Work Phone: 1(885)410-[address] [place], [place] 6527508-07-2024 11:59-0400 Systolic blood cqikruei629 mm[Hg]DO Antoni Ball Work Phone: 1(630)716-[address] [place], [place] 6527512-08-2023 08:30-0500 Body heightBenclemente Ball Other [facility] [employer] Other 12-08-2023 08:30-0500Body mass index (BMI) [Ratio] 29.43 kg/n1Oispqxuy Ball Other [employer] Other 12-08-2023 08:30-0500Body vegrzdwfjev18.3 [degF] Antoni Ball Other [employer] Other 12-08-2023 08:30-0500Body lusgep14.72 kgBenjamin Ball Other [employer] Other 12-08-2023 08:30-0500Diastolic blood pjryffwm82 mm[Hg] Antoni Ball Other [employer] Other 12-08-2023 08:30-0500Respiratory rate14 /minBenjamin Ball Other [employer] Other 12-08-2023 08:30-5285TiK5% (BldA) [Mass fraction]96 % Antoni Ball Other [employer] Other 12-08-2023 08:30-0500Systolic blood nkqxutzs641 mm[Hg] Antoni Ball Other [employer] Other 07-28-2023 09:00-0400Body heightBenjamin Ball Other [employer] Other 07-28-2023 09:00-0400Body mass index (BMI) [Ratio] 29.72 kg/o5Mnzdphyt Ball Other [employer] Other 07-28-2023 09:00-0400Body eyjdjf86.63 kgBenjamin Ball Other [employer] Other 07-28-2023 09:00-0400Diastolic blood tgxxhnyo26 mm[Hg] Antoni Ball Other [employer] Other 07-28-2023 09:00-0400Respiratory rate12 /minBenjamin Ball Other [employer] Other 07-28-2023 09:00-0400Systolic blood mm[Hg] Antoni Ball Other [employer] Other 04-26-2023 09:30-0400Body heightBenjamin Ball Other [employer] Other 04-26-2023 09:30-0400Body mass index (BMI) [Ratio] 30.33 kg/g5Ejjwupms Ball Other [employer] Other 04-26-2023 09:30-0400Body jvupbo82.53 kgBenjamin Ball Other [employer] Other 04-26-2023 09:30-0400Diastolic blood ianyvbwj06 mm[Hg] Antoni Ball Other [employer] Other 04-26-2023 09:30-0400Respiratory rate12 /minBenjamin Ball Other [employer] Other 04-26-2023 09:30-0400Systolic blood xzoejcty289 mm[Hg] Antoni Ball Other [employer] Other Encounters Encounter DateEncounter TypeCare ProviderFacilityStart: 12-24-2024 End: 87-00-0582nrxwgccargNdcprkob Ball DO Work Phone: [facility] Work Phone: Start: 12-24-2024 End: 69-23-1956Kevyuid encounter procedureBenjamin Ball DO-[facility] Work Phone: Start: 12-10-2024 End: 77-84-4521poydwfycuwAvayeckw Ball DO Work Phone: [facility] Work Phone: Start: 12-10-2024 End: 24-05-8166Eyqvzqp encounter procedureBejosé miguel Monet [facility] Work Phone: Start: 54-85-8745Efc-patient / Non-visitAntoni Monet DO-[facility] Work Phone: Start: 12-05-2024 End: 50-15-4938Injhfxbtzi and management of inpatientSaniya Wilkinson DO-[facility] Work Phone: Start: 52-78-1848Fxh-patient / Non-visitCatherine Manjinder CUSTOMER SERVICE VOICE-[facility] Work Phone: Start: 11-29-2024 End: 14-99-9445Vvbzadenlm and management of inpatientRuta Semaskiene Facility:[facility]: 59-87-0061Yta-patient / Non-visitMane Sommer MD-[facility] Work Phone: Start: 11-13-2024 End: 60-87-0748bmykqllhulNrxqsrg R WATERSFacility:FTMCStart: 10-14-2024 End: 13-29-3051Pdyzfzksjm OrdersDavid Gray Jere Work Phone: [facility] Diagnostic RadiologyComment on above:ArthritisStart: 09-03-2024 End: 77-47-9071Sokhymb encounter procedureAntoni Monet [facility] Work Phone: Start: 07-10-2024 End: 04-59-3780Twznjr outpatient visit 25 Quentin Singleton DO Work Phone: uh [facility] HospitalComment on above:ASHD (arteriosclerotic heart disease); NSTEMI (non-ST elevated myocardial infarction) (Multi); History of percutaneous coronary intervention; Cigar smoker; Diabetes mellitus type II, non insulin dependent (Multi); Hyperlipidemia, unspecified hyperlipidemia type; BMI 30.0-30.9,adultStart: 07-10-2024 End: 02-36-6558uuifdvgqtgVSIRVAXPiedmont Newton AmbulatoryStart: 03-21-2024 End: 95-34-3820Hsgihfh encounter procedureBenjamin Ball DO Work Phone: [facility]-Electrodiagnostics Work Phone: Start: 03-21-2024 End: 60-71-5610jskmpwqdkjWqbqvhee Ball DO Work Phone: [facility] Work Phone: Start: 02-21-2024 End: 53-66-0261Xulyxaw encounter procedureBenjamin Ball DO Work Phone: [facility] Work Phone: Start: 17-77-2222Eokwtjd encounter procedureBenjamin Ball DO Work Phone: [facility]: 01-10-2024 End: 43-76-1856arvdfkzzdeBANVCLYPiedmont Newton AmbulatoryStart: 01-10-2024 End: 02-26-1901Zefqafbxueks care manage srvc 14 [facility] Work Phone: uh FirelandsComment on above:NSTEMI (non-ST elevated myocardial infarction) (Multi); History of percutaneous coronary intervention; Diabetes mellitus type II, non insulin dependent (Multi); Body mass index (BMI) 29.0-29.9, adult; Cigar smokerStart: 01-05-2024 End: 38-34-0946Lceppiu encounter procedureBenjamin Ball DO Work Phone: [facility] Work Phone: Start: 94-67-4124Bqv-patient / Non-visitBenjamin Ball DO Work Phone: [facility] Work Phone: Start: 54-27-9001Kyu-patient / Non-visitBenjamin Ball DO Work Phone: [facility] Work Phone: Start: 69-59-2621Jsg-patient / Non-visitBenjamin Ball DO Work Phone: [facility] Work Phone: Start: 10-13-6365Rws-patient / Non-visitBenjamin Ball DO Work Phone: [facility] Work Phone: Start: 12-26-2023 End: 87-68-0364Wtqheizdsd and management of inpatientDO Antoni Ball Work Phone: [facility] Work Phone: Start: 12-26-2023 End: 37-57-2102Tqrakzh encounter procedureDO Antoni Ball Work Phone: [facility] Work Phone: Start: 11-15-2023 End: 93-27-7607moqevpiadrTxtxjhq R WATERSFacility:FTMCStart: 79-64-3326Ols- patient / Non-visitDO Antoni Ball Work Phone: [facility] Work Phone: Start: 28-24-1183Qyo-patient / Non-visitDO Antoni Ball Work Phone: [facility] Work Phone: Start: 10-18-2023 End: 28-60-8561Rwdcvhp encounter procedureDO Antoni Ball Work Phone: [facility] Work Phone: start: 04-11-2023 End: 79-77-0072mtsrdxvcknMhplfcbt Ball Other [employer] Other Start: 42-21-9816Vjqecskcr encounterBenjamin BallFPG [facility] Medical ClinicStart: 04-05-2023 End: 97-53-4469oknzdafnkeTjbtjebt Ball Other [employer] Other Start: 77-61-3843Icgsytdqa encounterBenjamin BallFPG [facility] ClinicStart: 02-17-2023 End: 28-31-9778ptcbmazbcdPynittul Ball Other [employer] Other Start: 19-07-8962Xxdrmea encounter procedureBenjamin BallFPG [facility] Medical ClinicStart: 10-12-2022 End: 93-86-8807loivsrysclXatcngjt Ball Other [employer] Other Start: 96-91-3637Wvmrzdqhn encounterBenjamin BallFPG [facility] Medical ClinicStart: 10-07-2022 End: 14-63-7723swbpexeqemMiuwbxdk Ball Other [employer] Other Start: 93-06-3242Vcorni outpatient visit 25 minutes Antoni BallFPG [facility] ClinicStart: 07-06-2022 End: 13-48-8033itnctvnlmlJmzugwyw Ball Other [employer] Other Start: 98-11-8168Jrpoxp outpatient visit 15 minutes Antoni BallFPG [facility] ClinicStart: 02-28-2022 End: 12-07-1495hlzpiidpnmFO ANTONI BALLFacility:U8Ikwai: 86-73-8808Lqpya health examinationBenjamin Ball Other [employer] Other Start: 97-85-1497Ygurjcrkf for general adult medical examination without abnormal findingsBenjamin Ball Other [employer] Other Start: 11-13-2021 End: 92-35-6168bblxizzhlyNH ANTONI BALLFacility:P4Ntnbi: 11-11-2021 End: 06-50-6154uxsvfytfjlXY PATITO LUXFacility:C6Aqqda: 65-34-6691Pkmdwfrtg for preprocedural laboratory examinationDR PATITO [facility] Start: 11-08-2021 End: 25-33-0222yylsecbhejJV PATITO LUXFacility:F2Niyfs: 11-08-2021 End: 77-95-6828Guptvnfdy for preprocedural laboratory examinationDR PATITO LUXFacility:X7Qyvem: 57-09-1219Fucteygmg for preprocedural cardiovascular examinationDR PATITO [facility] HospitalStart: 20-50-6107Xrzywldsi for preprocedural laboratory examinationDR PATITO [facility] HospitalStart: 11-01-2021 End: 45-61-4912wtshouukluEX PATITO WATERSFacility:B9Trvqp: 11-01-2021 End: 80-49-2547Oczhdzhvu for preprocedural cardiovascular examinationDR PATITO WATERSFacility:S7Chjzg: 10-12-2021 End: 87-07-3643mevajvrdumDP ANTONI BALLFacility:X5Warey: 07-01-2021 End: 74-31-1120bcewdoybwsBL ANTONI BALLFacility:P1Fzobq: 03-10-2021 End: 76-31-4325tyqguxxbeeLY ANTONI BALLFacility:P8Hewaz: 49-07-3428Ftwfpejgn for preprocedural cardiovascular examinationBejosé miguel Monet Other [employer] Other Start: 31-96-0276Esueudxtxpcj cardiovascular examinationBejosé miguel Monet Other [employer] Other Procedures DateProcedureProcedure DetailPerforming ClinicianStart: 49-61-2557EN angiography of thoraxBenjamin Ball DO Work Phone: Start: 40-10-7969Kalggedu screenBenjamin BallComment on above:Result Comment: PERFORMED BY: [facility] [address] [place] [address] PATHOLOGIST [employer]ICIAN FLORENCIO CORTEZ M.D.Start: 59-61-6370Gwvof chest X-rayBenjamin Ball DO Work Phone: Start: 32-46-7180Zfndedctc for occult blood in feces Antoni Ball DO Work Phone: Start: 75-09-6469Vwhgqitb screenBenjamin BallComment on above:Order Comment: Transfuse now? Y Number of units to transfuse now? 1 Transfuse now? Y Number of units to transfuse now? 1Result Comment: PERFORMED BY: [facility] [address] [place] [address] PATHOLOGIST [employer] FLORENCIO CORTEZ M.D.Start: 10-14-2024 End: 62-14-7011Wargtslkpn examination knee 1/2 viewsDavid Gray Jere Work Phone: Start: 74-35-2435Mkoin chest X-rayBenjamin Ball DO Work Phone: Start: 50-45-6294UB Coronary Thrombolysis IVDO Antoni Monet Work Phone: Start: 92-31-2329HR Ivus Ea Add VesselDO Antoni Ball Work Phone: Start: 52-10-4663KC Ivus Initial VesselDO Antoni Ball Work Phone: Start: 86-50-7715RR LHC & COR AngioDO Antoni Ball Work Phone: Start: 99-86-9680DX Stent 1st Vessel CX DESDO Antoni Ball Work Phone: Start: 51-99-2390YD Stent 1st Vessel LAD DESDO Antoni Monet Work Phone: Start: 81-63-1243DF Stent 1st Vessel RCA DESDO Antoni Ball Work Phone: Start: 43-22-2317KQZ screeningDR PATITO Bright on above:Performed By: #### BMP #### [facility] [address] [place] [address] Dr. Gil SmithStart: 94-16-7418Cyf-surgery evaluationBejosé miguel Monet Other Start: 46-72-3399Ljnusbomf for malignant neoplasm of prostateAntoni Monet Other Depression screeningBejosé miguel Monet Other Screening for malignant neoplasm of prostateBejosé miguel Monet Other Plan of Treatment DateCare ActivityDetailAuthorStart: 82-39-5559Cjxcagm vaccinationTetanus (Td or Tdap) BoosterMetroHealthStart: 96-54-1949Xjpjf panelCholesterolMetroHealthStart: 55-79-8439Wvwoz panelCholesterolMetroHealthStart: 58-28-3825TQkD/Tdap/Td Vaccines (3 - Tdap)DTaP/Tdap/Td Vaccines (3 - Tdap)[facility]: 67-50-3838FNE vaccine (adult) (1 - 1-dose 75+ series)RSV vaccine (adult) (1 - 1-dose 75+ series)MetroHealthStart: 01-15-2025 End: 47-48-5433Ygytrqp encounter /05/2025 10:10 AM EST Office Visit [facility] [address] [facility] [address] [place] [id number] Ar Singleton DO [address] [facility] [address], [address] [place] [address] [facility] CenterStart: 15-46-0870Ulxewigcl vaccination Influenza Vaccine (#1)MetroHealthStart: 61-66-3812CtykmhkrtPeoples Hospitaltart: 80-53-6974QnvadlakkPeoples Hospitaltart: 12-07-2024 End: 64-06-6987PvgrpskbqPeoples Hospitaltart: 48-52-4960SpvtkiyykMadison Health CenterStart: 49-31-4605Tidragce to cardiologistMadison Health CenterStart: 04-29-0363Zxzgftay admissionPeoples Hospitaltart: 12-05-2024 End: 69-63-6124OesuvrpqrMadison Health CenterStart: 40-25-6276AucqkizyoMadison Health CenterStart: 12-03-2024 End: 45-97-9405XoeiaaxnkMadison Health CenterStart: 63-56-7220QvtugiadzMadison Health CenterStart: 42-90-4681AklgxduwyMadison Health CenterStart: 05-23-0033KrxenhwbwMadison Health CenterStart: 17-81-3233SdfyzehyiMadison Health CenterStart: 57-91-9454Kmiavuhk to cardiologistPeoples Hospitaltart: 05-34-6561FoyxxanguMadison Health CenterStart: 69-83-4475Aoxdwarf to gastroenterologistMadison Health CenterStart: 19-61-1209Uqtmodcw admissionPeoples Hospitaltart: 11-11-2024 Influenza vaccinationInfluenza Vaccine (Season Ended)[facility] HospitalStart: 10-14-2024 End: 27-67-6045LB Foot - right 3 ViewsTHE [facility] Work Phone: Comment on above:Expected: 10/14/2024, Expires: 10/14/2025Start: 10-14-2024 End: 36-65-5584NB Knee - left AP and LateralMetroHealthComment on above: Expected: 10/14/2024, Expires: 10/14/2025Start: 10-14-2024 End: 33-01-5227WI Lumbar spine AP and LateralMetroHealthComment on above: Expected: 10/14/2024, Expires: 10/14/2025Start: 07-10-2024 End: 32-50-2593Lcavisb encounter wgijzmpdj62/30/2025 9:40 AM EDT Office Visit [address] [address] Ar Singleton, DO [address] [facility] [address], [address] [place] [address] [facility]: 60-57-5294TmqgfkrolPeoples Hospitaltart: 46-87-3414KplakapktPeoples Hospitaltart: 12-30-2023 [facility]: 05-90-5483SitugdfwxPeoples Hospitaltart: 99-43-9745CjxjvgghwPeoples Hospitaltart: 12-27-2023 [facility] Start: 94-55-3155Ubgba disorder assessmentThe [facility] Start: 03-54-2390Txbyehyz admissionPeoples Hospitaltart: 91-27-3919Huimpzzb of Coronary Artery, Three Arteries, Bifurcation, with Three Drug-eluting Intraluminal Devices, Percutaneous ApproachDilation of Coronary Artery, Three Arteries, Bifurcation, with Three Drug-eluting Intraluminal Devic es, Percutaneous ApproachPeoples Hospitaltart: 12-26-2023 Fluoroscopy of Left Heart using Low Osmolar ContrastFluoroscopy of Left Heart using Low Osmolar ContrastPeoples Hospitaltart: 12-26-2023 Fluoroscopy of Right and Left Heart using Low Osmolar ContrastFluoroscopy of Right and Left Heart using Low Osmolar ContrastThe [facility] Start: 56-34-7163Kobgoodcyex of Cardiac Sampling and Pressure, Left Heart, Via Natural or Artificial OpeningMeasurement of Cardiac Sampling and Pressure, Left Heart, Via Natural or Artificial OpeningPeoples Hospitaltart: 72-63-1854ZHMMV-19 Vaccine ( season)COVID-19 Vaccine ( season)[facility]: 33-01-0042Qbhtdjgwb vaccination Influenza Vaccine (#1)[facility]: 02-15-2016 Abdominal aortic aneurysm screeningAbdominal Aortic Aneurysm (AAA) Screening [facility]: 14-81-2174Lwxacxhgw B (HBV) Vaccine (optional start 60+ years)Hepatitis B (HBV) Vaccine (optional start 60+ years) [facility]HealthStart: 60-51-1850HMG High Risk: (Elderly (60+) or Population) (1 - Risk 60-74 years 1-dose series)RSV High Risk: (Elderly (60+) or Population) (1 - Risk 60-74 years 1-dose series)[facility]: 73-64-4600Amuamqsflltr vaccinationPneumococcal Vaccine(s) (50+ yrs) (1 of 1 - PCV)[facility]HealthStart: 28-87-5425Rzgtftuy (RZV) Vaccine (1 of 2)Shingles (RZV) Vaccine (1 of 2)[facility]HealthStart: 95-64-0041Rqkpmq Vaccines (1 of 2)Zoster Vaccines (1 of 2)[facility]: 02-15-1996 Screening for malignant neoplasm of colonMetroHealthStart: 1973 DTaP/Tdap/Td Vaccines (1 - Tdap)DTaP/Tdap/Td Vaccines (1 - Tdap)[facility]: 32-75-2519Zfonelgax A (HAV) Vaccine (optional start 19+ years)Hepatitis A (HAV) Vaccine (optional start 19+ years)[facility]HealthStart: 46-27-3895Rwuqabgexget vaccinationPneumococcal Vaccine (1 of 2 - PCV)[facility]: 27-66-0297Cdvqxfq vaccinationTetanus (Td or Tdap) BoosterMetroHealthStart: 14-43-0757Wfwofugtt C screeningChildren's Hospital of [facility]: 04-79-8393Acqh BoosterTdap BoosterMetroOrange Regional Medical Centerart: 1960 Glaucoma screeningDiabetes: Retinopathy ScreeningChildren's Hospital of [facility]: 74-76-1901Pkxlcumlvvzu Vaccine: 65+ Years (1 of 2 - PCV) Pneumococcal Vaccine: 65+ Years (1 of 2 - PCV)[facility] Start: 19-37-1140Dkldnsnnvl A1c measurementDiabetes: Hemoglobin Z4DDwmhswlgdvChildren's Hospital of [facility]: 86-59-9979Qzkgi panelLipid PanelUnMetroHealth [facility]: 1951Medicare Annual Wellness VisitMedicare Annual Wellness Visit (AWV)[facility]: 1950 Screening for malignant neoplasm of colonUnMetroHealth [facility]: 45-45-2317Iqlil screening for proteinDiabetes: Urine Protein Screening [facility]: 27-14-9637Hjbjts Adult PhysicalYearly Adult PhysicalUnNorwalk Memorial HospitalPatient EducationMadison Health Ctr Work Phone: Patient referralMadison Health Ctr Work Phone: XR Chest 2 [facility] Immunizations Immunization DateImmunizationNotesCare AxpmdfqzLewrnraz51-86-6342Krfrkclwjhkd Conjugate Vaccine, 20 valentBenjamin Ball DO Work Phone: [facility]06-14-2025tetanus toxoid, reduced diphtheria toxoid, and acellular pertussis vaccine, adsorbedPhe 3UqwdaGjinqy76-85-6634xqvturhdct, tetanus toxoids and acellular pertussis vaccine, unspecified formulationBenjamin Ball Other [facility]11-08-2017diphtheria, tetanus toxoids and acellular pertussis vaccine, unspecified formulation Antoni Ball Other [facility] Payers DatePayer CategoryPayerPolicy [id number] [facility] [id number]-oan [id number] Care (Private)[facility] [id number] 2012MedicareMEDICARE RAILROAD [id number] [id number] 56-57-6567Ytlnynw Health Oyvrrukew96[id number] 2..1.427144.3.57[id number] 2..1.020939.3.57[id number] 2..1.241138.3.57[id number] 2..1.737797.3.57[id number] 2..1.496189.3.57[id number] 2..1.478121.3.57[id number] 2.16.840.1.750601.3.57[id number] 2.16.840.1.152004.3.57[id number] 2.16.840.1.455941.3.57[id number] 2.16.840.1.008845.3.57[id number] 2.16.840.1.256047.3.57[id number] 2.16.840.1.161789.3.57[id number] 2.16.840.1.605503.3.57[id number] 2.16.840.1.80[id number] 2.16.840.1.785748.3.579.2.531 [id number] 2.16.840.1.6[id number] 2..840.1.662488.3.579.2.531 Social History DateTypeDetailFacilityStart: 40-38-5699Hjq Assigned At BirthNorton GradFly Other Start: 95-22-5993Smzatwj smoking status NHISSmoker (finding)[facility]: [id number] [facility]: 63-52-8534Kgimdyp smoking status NHISSmokes tobacco dailyUnNorwalk Memorial Hospital Work Phone: History of tobacco useCigar SmokerUnMethodist McKinney Hospitalveland Work Phone: Start: 08-06-0739Qepxtps use and exposureSmokeless tobacco non-userSalem City Hospital Work Phone: Start: 01-10-2024 End: 29-46-0127Supwfwzry beverage intakeLifetime non-drinker (finding)[facility] Work Phone: Start: 00-20-3259Ixqoewo of Social functionUnNorwalk Memorial Hospital Work Phone: Start: 29-05-1687Pee assigned at birthNot on file [facility] Work Phone: Start: 12-31-2023 End: 53-82-4666Ukxcpbje to SARS-CoV-2 (event)Not sureSalem City HospitalStart: 02-21-2024 End: 12-36-3011Sxkjoyp smoking status NHISEx-smoker (finding)[facility]: 91-68-2733AptMqcpujn sex unknown (finding)[facility] HospitalTobacc smoking status NHISTobacco smoking consumption unknownMetroHealthStart: 56-69-7086HzuHugt (finding)[facility]: 12-05-2024 End: 50-72-8516Qjbupse smoking status NHISNever smoked tobacco (finding) [facility]: 12-02-2024 End: 57-36-7265LWLG Follow upSDOH [facility]Gu[facility] Work Phone: Medical Equipment Procedure CodeEquipment CodeEquipment Original TextEquipment IdentifierDates Start: 53-55-7939XV STENT CONSTANCE FRONTIER 3.0 X 15FDAStart: 86-22-7632UH STENT CONSTANCE FRONTIER 3.0 X 18FDAStart: 05-98-2646Zwme-eluting coronary artery stent, zkp-unzkythbocqes-quxygwq-coated([id number] FDAStart: 35-41-9681QX STENT CONSTANCE FRONTIER 3.0 X 15FDAStart: 30-40-0477FE STENT CONSTANCE FRONTIER 3.0 X 18FDAStart: 23-11-8983Mcyfv Sugar Diagnostic (Onetouch Ultra Test) stripStart: 82-26-0474Dqjhx Sugar Diagnostic (Onetouch Ultra Test) strip Start: 02-05-2024 End: 30-64-6579TD STENT CONSTANCE FRONTIER 3.0 X 15FDAStart: 97-32-3092OY STENT CONSTANCE FRONTIER 3.0 X 18FDAStart: 04-25-4682Bdaey Sugar Diagnostic (Onetouch Ultra Test) stripStart: 58-08-4373Ohpek Sugar Diagnostic (Onetouch Ultra Test) strip Start: 02-05-2024 End: 60-82-3826Ybzzc Sugar Diagnostic (Onetouch Ultra Test) stripStart: 02-06-2024 End: 26-31-8172Ypemj Sugar Diagnostic (Onetouch Ultra Test) stripStart: 06-17-2024 End: 58-74-6616SN STENT CONSTANCE FRONTIER 3.0 X 15FDAStart: 16-58-4927TE STENT CONSTANCE FRONTIER 3.0 X 18FDAStart: 29-41-2477Bbhmd Sugar Diagnostic (Onetouch Ultra Test) stripStart: 84-50-5591Ulyux Sugar Diagnostic (Onetouch Ultra Test) strip Start: 02-05-2024 End: 65-85-0271Rouyw Sugar Diagnostic (Onetouch Ultra Test) stripStart: 02-06-2024 End: 05-87-5774Jnloc Sugar Diagnostic (Onetouch Ultra Test) stripStart: 06-17-2024 End: 52-27-4638DR STENT CONSTANCE FRONTIER 3.0 X 15FDAStart: 55-64-1667RD STENT CONSTANCE FRONTIER 3.0 X 18FDAStart: 00-63-5082Qijlv Sugar Diagnostic (Onetouch Ultra Test) stripStart: 44-41-8374Rgaee Sugar Diagnostic (Onetouch Ultra Test) strip Start: 02-05-2024 End: 69-71-6877Jjgmc Sugar Diagnostic (Onetouch Ultra Test) stripStart: 02-06-2024 End: 65-88-4859Ssdyt Sugar Diagnostic (Onetouch Ultra Test) stripStart: 06-17-2024 End: 86-89-1336NM STENT CONSTANCE FRONTIER 3.0 X 15FDAStart: 82-99-8223RD STENT CONSTANCE FRONTIER 3.0 X 18FDAStart: 98-60-6012Hssui Sugar Diagnostic (Onetouch Ultra Test) stripStart: 36-84-7998Twpmy Sugar Diagnostic (Onetouch Ultra Test) strip Start: 02-05-2024 End: 26-36-3608Jkliv Sugar Diagnostic (Onetouch Ultra Test) stripStart: 02-06-2024 End: 98-88-1670Rjncs Sugar Diagnostic (Onetouch Ultra Test) stripStart: 06-17-2024 End: 86-05-7911WE STENT CONSTANCE FRONTIER 3.0 X 15FDAStart: 51-01-4054EL STENT CONSTANCE FRONTIER 3.0 X 18FDAStart: 14-75-6819Ucutq Sugar Diagnostic (Onetouch Ultra Test) stripStart: 99-77-9086Lnvdh Sugar Diagnostic (Onetouch Ultra Test) strip Start: 02-05-2024 End: 59-22-2230Perfj Sugar Diagnostic (Onetouch Ultra Test) stripStart: 02-06-2024 End: 05-11-3763Tjnku Sugar Diagnostic (Onetouch Ultra Test) stripStart: 06-17-2024 End: 22-99-1791GW STENT CONSTANCE FRONTIER 3.0 X 15FDAStart: 20-37-8778JN STENT CONSTANCE FRONTIER 3.0 X 18FDAStart: 38-70-2726Cmpts Sugar Diagnostic (Onetouch Ultra Test) stripStart: 74-13-9377Aphbn Sugar Diagnostic (Onetouch Ultra Test) strip Start: 02-05-2024 End: 77-22-6375Jzuso Sugar Diagnostic (Onetouch Ultra Test) stripStart: 02-06-2024 End: 55-90-7835Xtzqf Sugar Diagnostic (Onetouch Ultra Test) stripStart: 06-17-2024 End: 06-17-2024 Goals DatePatient GoalDesired Activity/State Functional Status ClrpZefribiljyXgrnziBkbxpuiz80-62-3963Nsftcfqvdy statusPatient at Baseline [facility] Work Phone: 1(150) 362-187210197583-57-9300Oemeojbens statusPatient at Baseline [facility] Work Phone: Mental Status UveqUcjqdxxddkFgdpgzRpywxmqf02-99-3570Snuwdlkxv functionCognitive Status Patient at [facility] Work Phone: 1(551) 384-213110-183470-33-2385Itmwmdiec functionCognitive Status Patient at [facility] Work Phone: Clinical Notes 07-06-2022 to 12-07-2024 Note Date & DscrWlqeOfqxgxir58-55-7455 Discharge summary Author Michelle Aguayo [facility] HospitalNote Date/TimeSeptember 2024 1:15pm [place] [address] Discharge Summary Signed Patient: Jesse Garrison MR#: [id number] : 1950 Acct:[id number] Age/Sex: 74 / M Adm Date: 5 Loc: Room: [address] [place] [address]: Michelle Aguayo MD Copies to: DO Michelle Uriarte MD~ Providers Date of Discharge: 12/07/24 Discharging Provider: Michelle Aguayo Primary Care Provider: Antoni Monet Consults: 12/05/24 22:29 Consult to Cardiology Routine Comment: Consulting Provider: [facility] Reason For Exam: dyspnea on exertion with chest pressure Has Provider Been Notified: Yes Date of Notification: 12/06/24 Time of Notification: 02:46 Discharge Diagnosis (1) Dyspnea: (2) Chest pressure: (3) Anemia: (4) Gastroduodenitis with hemorrhage: (5) T2DM (type 2 diabetes mellitus): Final Diagnosis Final Discharge Diagnosis: As above Summary Hospital Course Hospital course: Mr. Garrison is a 74-year-old male with a PMH of recent GI bleed, gastroduodenitis, CAD, NSTEMI, leftheart cath with multiple stents, T2DM that presented to the emergency room today for shortness of breath. States he gets short of breath just walking across the room to go to the bathroom, very little activity and he starts to get short of breath, dizzy and chest pressure. He states the chest pressure is on the left side of his chest, denies radiation. He has to sit down right away. He currently denies any symptoms while resting on the cart. States I am fine when I am sitting but when I get up to move I getvery short of breath. He was recently discharged for acute GI bleed requiring transfusion. He states that his bowel movements are still black, not bloody. He is very concerned with the shortness of breath. Denies nausea, vomiting, fever or chills. He is currently speaking in full sentences, on room air. Chest x-ray showed no acute cardiopulmonary abnormality. CTA of the chest was negative for PE or acute cardiopulmonary process. EKG normal sinus rhythm with a right bundle branch block. CBC with an H&H of 8.7/25.7. Coags were unremarkable. CMP with a glucose of 237, otherwise unremarkable. Troponins were 16 and 17. BNP 35. Occult stool was positive. He received 80 mg of Protonix. He will be admitted as inpatient to the [facility] telemetry floor. Dyspnea on exertion Chest pressure ? Echo in a.m. ? Troponin in a.m. ? Consult cardiology?appreciate input Gastroduodenitis with hemorrhage?discharged on 12/02/2024 Anemia?current H&H improved at 8.7/25.7 ? Patient reports black stools, no current bleeding ? Continue pantoprazole twice daily ? CBC in a.m. Chronic conditions T2DM?fingersticks ACHS, SSI AC, continue empagliflozin, hold glimepiride, metformin HTN?lisinopril HLD?atorvastatin CAD?currently has clopidogrel on hold for tooth extraction on Monday DVT PPx?SCDs Diet order?1800 ADA CODE STATUS?full code 12/06/2024 I agree with cardiology as the patient's symptomology appears to be more related to his symptomatic anemia I will defer transfusion of lisinopril his hemoglobin tomorrow. 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 I discussed the plan with the patient and his family members at bedside. We are repeating his echo today as well. Answered all the questions. The patient continues to be stable hemoglobin stable by tomorrow morning I will discharge him. Patient agreement with the plan 12/07/2024 Pt is doing better today. He states that he has no SOB whether at restor with walk test. He is able to walk around the hallway with no issues. He denies any chest pain or pressure or SOB orDOE, or diaphoresis or palpitations or nausea or vomiting. He was cleared for discharge by cardiology and that he has to be on clopidogrel, cardiology cleared him to go for his dental procedure whileon clopidogrel as well. He had an echo done on 12/06/2024 that showed EF of60-65% with no regional wall abnormalities. I had a lengthy discussion with the pt and his about the plan of management.He understands, and will see his PCP on Monday. He is stable for discharge. Condition Condition at Discharge: Stable Status at Discharge Overall status at discharge: patient is back to baseline Time Spent with Patient Time spent providing/coordinating discharge services (# min): 50 Discharge Plan Discharge Plan Patient Disposition: Home Activity: Ambulate as Tolerated Additional Instructions: Follow up with your primary care doctor Come back to the ED if you develop Shortness of breath, chest pressure Instructions: Hope Pamphlet, Know your Meds Prescriptions: Continued metformin 1,000 mg tablet See Rx Instructions .ROUTE .COMPLEX Qty: 90 3RF Dose Instruction: TAKE 1 TABLET BY MOUTH DAILY Rx Instructions: TAKE 1 TABLET BY MOUTH DAILY atorvastatin 80 mg Tablet 80 mg PO QPM 90 Days Qty: 90 3RF nitroglycerin 0.4 mg Tablet, Sublingual 0.4 mg sublingual Q5M PRN (Reason: Chest Pain) 30 Days Qty: 25 3RF gabapentin 100 mg capsule 100 mg PO DAILY Patient Comments: recently increased to 300mg daily, but haven't started taking it yet empagliflozin 25 mg tablet 12.5 mg PO DAILY magnesium 200 mg tablet 400 mg PO DAILY omega 5-oaj-ana-fish oil [Fish Oil] 1,000 (120-180) mg capsule 1 cap PO BID multivitamin [Daily Multi-Vitamin] Tablet 1 tab PO DAILY pantoprazole [Protonix] 40 mg tablet,delayed release (DR/EC) 40 mg PO DIRECTED 30 Days Qty: 30 6RF Rx Instructions: 40 mg twice daily for 8 weeks, then 40 mg daily for prophylaxis given ongoing need for antiplatelettherapy lisinopril 5 mg tablet 5 mg PO DAILY 30 Days Qty: 30 0RF clopidogrel [Plavix] 75 mg tablet 75 mg PO DAILY 30 Days Qty: 30 6RF glimepiride 2 mg tablet 2 mg PO QAM 30 Days Qty: 30 5RF Rx Instructions: administer with breakfast Discontinued garlic [garlic oil] 1,000 mg capsule 1,000 mg PO BID cinnamon bark [Cinnamon] 500 mg capsule 500 mg PO DAILY No Action (DME) Aerochamber Mini Spacer See Rx Instructions .ROUTE .MEDSUPPLY Qty: 1 0RF Rx Instructions: Use with MDI (DME) OneTouch Ultra Test Strip See Rx Instructions .Route Qty: 100 3RF Rx Instructions: As directed to test home BS qd Follow Up: Otoniel Singleton DO [Active Staff - D.O., Cardiology] - 01/15/25 10:10 am Continuity of Care Document Health Concerns: A [facility] screening has identified you as FRAIL or AT RISK FOR FRAILTY. This puts you at a higher risk for infection, illness, falls,and other injuries. Here are four ways to help you reduce your risk of frailty: 1. IDENTIFY EARLY SIGNS OF FRAILTY ? Discuss contributing factors and concerns with your doctor 2. BE ACTIVE ? Walking and light strengthening exercises will help reduce weakness 3. EAT WELL ? Aim for three healthy meals a day that are high in protein 4. THINKPOSITIVE ? Keep your mind active by being sociable and continuing to learn References: Stay Strong:Four Ways to Beat the Frailty Risk https://www.[facility].org/health/cqxnehxk-tqg-iunbxjpvbs/st zy-acprly-dktc- vmzb-jv-yxjf-aaz-aufwrjb-ubdq Exam Physical Exam Vital Signs: Temp Pulse Resp BP Pulse Ox O2 Del Method 98.1 F 64 16 123/73 97 Room Air 12/07/24 09:00 12/07/24 09:00 12/07/24 09:00 12/07/24 09:00 12/07/24 09:00 12/07/24 09:00 Narrative: CONST- Appears well -developed and well nourished. Fatigued HEAD - Normocephalic and atraumatic EENT-Sclera nonicteric, conjunctive are non-erythemic, moist oral mucosa, pharynx clear NECK-Supple, no cervical lymphadenopathy CARDIAC-normal rate, regular rhythm, S1 & S2. PULM-diminished, fine crackles to left posterior base, RA, no accessory muscle use or cough noted ABD - Soft. Bowel sounds are normal. Softly distended. No tenderness EXTREM-no edema BLE calves, nontender SKIN- W/D good turgor MS- MAEX4 spontaneously with equal with equal strength NEURO- A&Ox3 speech clear and tongue midline, equal facial symmetry, no focal motor deficits Diagnostic Studies Completed and Pending Studies Labs on day of discharge: 12/07/24 11:44: POC Glucose 151 12/07/24 06:30: POC Glucose 139 12/07/24 06:05: Corrected WBC 6.3, Uncorrected WBC Count 6.3, RBC 2.73 L, Hgb 8.1 L, Hct 24.1 L, MCV 88.2, MCH 29.8, MCHC 33.8, RDW 14.2, Plt Count 379, MPV 7.1, Neut % (Auto) 69.2, Lymph % (Auto) 20.1, [place] % (Auto) 5.5, Eos % (Auto) 4.7, Baso % (Auto) 0.5, Nucleat RBC Rel Count 0.1, Neut # (Auto)4.3, Lymph # (Auto) 1.3, [place] # (Auto) 0.3, Eos # (Auto) 0.3, Baso # (Auto) 0.0, PHA Creatinine Clear 71.75, Sodium 138, Potassium 4.2, Chloride 106, Carbon Dioxide 27.3, Anion Gap 8.9, BUN 20, Creatinine 1.03, Est GFR (CKD-EPI) > 60.0, Glucose 123 H, Calcium 8.3 L, Magnesium 2.2, Total Bilirubin 0.4, AST 12 L, ALT 18, Alkaline Phosphatase 76, Total Protein 5.8 L, Albumin 3.8, Globulin 2.0, Alb umin/Globulin Ratio 1.9 12/06/24 20:32: POC Glucose 169 12/06/24 16:28: POC Glucose 157 Documented By: Michelle Aguayo MD 12/07/24 1307 Signed By: <Electronically signed by Michelle Aguayo MD> 12/07/24 1317 [facility] Work Phone: 1(152) 427-363709-27-[address] [address] Discharge Summary Signed Patient: Jesse Garrison MR#: [id number] : 1950 Acct:[id number] Age/Sex: 74 / M Adm Date: 5 Loc: Room: [address] [place] [address]: Michelle Aguayo MD Copies to: DO Michelle Uriarte MD~ Providers Date of Discharge: 12/07/24 Discharging Provider: Michelle Aguayo Primary Care Provider: Antoni Monet Consults: 12/05/24 22:29 Consult to Cardiology Routine Comment: Consulting Provider: [facility] Reason For Exam: dyspnea on exertion with chest pressure Has Provider Been Notified: Yes Date of Notification: 12/06/24 Time of Notification: 02:46 Discharge Diagnosis (1) Dyspnea: (2) Chest pressure: (3) Anemia: (4) Gastroduodenitis with hemorrhage: (5) T2DM (type 2 diabetes mellitus): Final Diagnosis Final Discharge Diagnosis: As above Summary Hospital Course Hospital course: Mr. Garrison is a 74-year-old male with a PMH of recent GI bleed, gastroduodenitis, CAD, NSTEMI, leftheart cath with multiple stents, T2DM that presented to the emergency room today for shortness of breath. States he gets short of breath just walking across the room to go to the bathroom, very little activity and he starts to get short of breath, dizzy and chest pressure. He states the chest pressure is on the left side of his chest, denies radiation. He has to sit down right away. He currently denies any symptoms while resting on the cart. States I am fine when I am sitting but when I get up to move I getvery short of breath. He was recently discharged for acute GI bleed requiring transfusion. He states that his bowel movements are still black, not bloody. He is very concerned with the shortness of breath. Denies nausea, vomiting, fever or chills. He is currently speaking in full sentences, on room air. Chest x-ray showed no acute cardiopulmonary abnormality. CTA of the chest was negative for PE or acute cardiopulmonary process. EKG normal sinus rhythm with a right bundle branch block. CBC with an H&H of 8.7/25.7. Coags were unremarkable. CMP with a glucose of 237, otherwise unremarkable. Troponins were 16 and 17. BNP 35. Occult stool was positive. He received 80 mg of Protonix. He will be admitted as inpatient to the [facility] telemetry floor. Dyspnea on exertion Chest pressure ? Echo in a.m. ? Troponin in a.m. ? Consult cardiology?appreciate input Gastroduodenitis with hemorrhage?discharged on 12/02/2024 Anemia?current H&H improved at 8.7/25.7 ? Patient reports black stools, no current bleeding ? Continue pantoprazole twice daily ? CBC in a.m. Chronic conditions T2DM?fingersticks ACHS, SSI AC, continue empagliflozin, hold glimepiride, metformin HTN?lisinopril HLD?atorvastatin CAD?currently has clopidogrel on hold for tooth extraction on Monday DVT PPx?SCDs Diet order?1800 ADA CODE STATUS?full code 12/06/2024 I agree with cardiology as the patient's symptomology appears to be more related to his symptomatic anemia I will defer transfusion of lisinopril his hemoglobin tomorrow. 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 I discussed the plan with the patient and his family members at bedside. We are repeating his echo today as well. Answered all the questions. The patient continues to be stable hemoglobin stable by tomorrow morning I will discharge him. Patient agreement with the plan 12/07/2024 Pt is doing better today. He states that he has no SOB whether at restor with walk test. He is able to walk around the hallway with no issues. He denies any chest pain or pressure or SOB orDOE, or diaphoresis or palpitations or nausea or vomiting. He was cleared for discharge by cardiology and that he has to be on clopidogrel, cardiology cleared him to go for his dental procedure whileon clopidogrel as well. He had an echo done on 12/06/2024 that showed EF of60-65% with no regional wall abnormalities. I had a lengthy discussion with the pt and his about the plan of management.He understands, and will see his PCP on Monday. He is stable for discharge. Condition Condition at Discharge: Stable Status at Discharge Overall status at discharge: patient is back to baseline Time Spent with Patient Time spent providing/coordinating discharge services (# min): 50 Discharge Plan Discharge Plan Patient Disposition: Home Activity: Ambulate as Tolerated Additional Instructions: Follow up with your primary care doctor Come back to the ED if you develop Shortness of breath, chest pressure Instructions: Hope Pamphlet, Know your Meds Prescriptions: Continued metformin 1,000 mg tablet See Rx Instructions .ROUTE .COMPLEX Qty: 90 3RF Dose Instruction: TAKE 1 TABLET BY MOUTH DAILY Rx Instructions: TAKE 1 TABLET BY MOUTH DAILY atorvastatin 80 mg Tablet 80 mg PO QPM 90 Days Qty: 90 3RF nitroglycerin 0.4 mg Tablet, Sublingual 0.4 mg sublingual Q5M PRN (Reason: Chest Pain) 30 Days Qty: 25 3RF gabapentin 100 mg capsule 100 mg PO DAILY Patient Comments: recently increased to 300mg daily, but haven't started taking it yet empagliflozin 25 mg tablet 12.5 mg PO DAILY magnesium 200 mg tablet 400 mg PO DAILY omega 0-qqx-rut-fish oil [Fish Oil] 1,000 (120-180) mg capsule 1 cap PO BID multivitamin [Daily Multi-Vitamin] Tablet 1 tab PO DAILY pantoprazole [Protonix] 40 mg tablet,delayed release (DR/EC) 40 mg PO DIRECTED 30 Days Qty: 30 6RF Rx Instructions: 40 mg twice daily for 8 weeks, then 40 mg daily for prophylaxis given ongoing need for antiplatelettherapy lisinopril 5 mg tablet 5 mg PO DAILY 30 Days Qty: 30 0RF clopidogrel [Plavix] 75 mg tablet 75 mg PO DAILY 30 Days Qty: 30 6RF glimepiride 2 mg tablet 2 mg PO QAM 30 Days Qty: 30 5RF Rx Instructions: administer with breakfast Discontinued garlic [garlic oil] 1,000 mg capsule 1,000 mg PO BID cinnamon bark [Cinnamon] 500 mg capsule 500 mg PO DAILY No Action (DME) Aerochamber Mini Spacer See Rx Instructions .ROUTE .MEDSUPPLY Qty: 1 0RF Rx Instructions: Use with MDI (DME) OneTouch Ultra Test Strip See Rx Instructions .Route Qty: 100 3RF Rx Instructions: As directed to test home BS qd Follow Up: Otoniel Singleton DO [Active Staff - D.O., Cardiology] - 01/15/25 10:10 am Continuity of Care Document Health Concerns: A [facility] screening has identified you as FRAIL or AT RISK FOR FRAILTY. This puts you at a higher risk for infection, illness, falls,and other injuries. Here are four ways to help you reduce your risk of frailty: 1. IDENTIFY EARLY SIGNS OF FRAILTY ? Discuss contributing factors and concerns with your doctor 2. BE ACTIVE ? Walking and light strengthening exercises will help reduce weakness 3. EAT WELL ? Aim for three healthy meals a day that are high in protein 4. THINKPOSITIVE ? Keep your mind active by being sociable and continuing to learn References: Stay Strong:Four Ways to Beat the Frailty Risk https://www.[facility].org/health/goffzfgb-ads-lahhfuktpe/st pe-ueefyh-zaid- zsjs-rh-tzvq-cza-dezgotp-fyqv Exam Physical Exam Vital Signs: Temp Pulse Resp BP Pulse Ox O2 Del Method 98.1 F 64 16 123/73 97 Room Air 12/07/24 09:00 12/07/24 09:00 12/07/24 09:00 12/07/24 09:00 12/07/24 09:00 12/07/24 09:00 Narrative: CONST- Appears well -developed and well nourished. Fatigued HEAD - Normocephalic and atraumatic EENT-Sclera nonicteric, conjunctive are non-erythemic, moist oral mucosa, pharynx clear NECK-Supple, no cervical lymphadenopathy CARDIAC-normal rate, regular rhythm, S1 & S2. PULM-diminished, fine crackles to left posterior base, RA, no accessory muscle use or cough noted ABD - Soft. Bowel sounds are normal. Softly distended. No tenderness EXTREM-no edema BLE calves, nontender SKIN- W/D good turgor MS- MAEX4 spontaneously with equal with equal strength NEURO- A&Ox3 speech clear and tongue midline, equal facial symmetry, no focal motor deficits Diagnostic Studies Completed and Pending Studies Labs on day of discharge: 12/07/24 11:44: POC Glucose 151 12/07/24 06:30: POC Glucose 139 12/07/24 06:05: Corrected WBC 6.3, Uncorrected WBC Count 6.3, RBC 2.73 L, Hgb 8.1 L, Hct 24.1 L, MCV 88.2, MCH 29.8, MCHC 33.8, RDW 14.2, Plt Count 379, MPV 7.1, Neut % (Auto) 69.2, Lymph % (Auto) 20.1, [place] % (Auto) 5.5, Eos % (Auto) 4.7, Baso % (Auto) 0.5, Nucleat RBC Rel Count 0.1, Neut # (Auto)4.3, Lymph # (Auto) 1.3, [place] # (Auto) 0.3, Eos # (Auto) 0.3, Baso # (Auto) 0.0, PHA Creatinine Clear 71.75, Sodium 138, Potassium 4.2, Chloride 106, Carbon Dioxide 27.3, Anion Gap 8.9, BUN 20, Creatinine 1.03, Est GFR (CKD-EPI) > 60.0, Glucose 123 H, Calcium 8.3 L, Magnesium 2.2, Total Bilirubin 0.4, AST 12 L, ALT 18, Alkaline Phosphatase 76, Total Protein 5.8 L, Albumin 3.8, Globulin 2.0, Alb umin/Globulin Ratio 1.9 12/06/24 20:32: POC Glucose 169 12/06/24 16:28: POC Glucose 157 Documented By: Michelle Aguayo MD 12/07/24 1307 Signed By: 12/07/24 1315 [facility]09-26-2025 Progress note Author Michelle Aguayo [facility] HospitalNote Date/TimeSeptember 2024 2:30pm [place] [address] Hospitalist Progress Note Signed Patient: Jesse Garrison MR#: [id number] : 1950 Acct:[id number] Age/Sex: 74 / M Adm Date: 5 Loc: Room: [address] [place] [address] Type: ADM IN Attending Dr: Michelle Aguayo MD Copies to: ~ Date of Service: 12/06/2024 Subjective Subjective Narrative: Patient seen and examined at bedside. Accompanied by multiple family members. He still complains ofshortness of breath. No nausea no vomiting no chest pain today. No fever no chills looks tired in the bed. Exam Physical Exam Vital Signs: Temp Pulse Resp BP Pulse Ox O2 Del Method 98.6 F 68 16 120/64 99 Room Air 12/06/24 07:37 12/06/24 11:15 12/06/24 11:15 12/06/24 11:15 12/06/24 11:15 12/06/24 11:15 Narrative: CONST- Appears well -developed and well nourished. Fatigued HEAD - Normocephalic and atraumatic EENT-Sclera nonicteric, conjunctive are non-erythemic, moist oral mucosa, pharynx clear NECK-Supple, no cervical lymphadenopathy CARDIAC-normal rate, regular rhythm, S1 & S2. PULM-diminished, fine crackles to left posterior base, RA, no accessory muscle use or cough noted ABD - Soft. Bowel sounds are normal. Softly distended. No tenderness EXTREM-no edema BLE calves, nontender SKIN- W/D good turgor MS- MAEX4 spontaneously with equal with equal strength NEURO- A&Ox3 speech clear and tongue midline, equal facial symmetry, no focal motor deficits Objective Lab Results 12/06/24 07:25 12/06/24 07:25 Microbiology Results Microbiology 12/05/24 18:39 Stool Stool Occult Blood ([facility]) - Final Meds Allergies and Active Meds Allergies No Known Allergies Allergy (Verified 11/29/24 05:47) Active Meds: Active Medications Generic Name Dose Route Start Last Admin Trade Name Carlq PRN Reason Stop Dose Admin Acetaminophen 1,000 mg 12/05/24 22:29 Acetaminophen 500 Mg Tablet PO 12/05/25 22:28 Q6HR PRN Pain Scale 1 - 3 or fever Atorvastatin Calcium 80 mg 12/06/24 21:00 Atorvastatin 80 Mg Tablet PO 12/06/25 20:59 QPM WES Dapagliflozin 10 mg 12/06/24 09:00 12/06/24 08:31 Dapagliflozin 10 Mg Tablet PO 12/06/25 08:59 10 mg DAILY WES Administration Dextrose 0 gm 12/05/24 22:29 Dextrose 50% In Water 25 Gm/50 Ml Syringe IV-PUSH 12/05/25 22:28 PRN PRN Hypoglycemia Glucose 0 gm 12/05/24 22:29 Dextrose 40% Gel 15 Gm Tube PO 12/05/25 22:28 PRN PRN Hypoglycemia Insulin Aspart 0 units 12/06/24 08:00 12/06/24 11:16 Insulin Aspart 300 Units/3 Ml SUBCUT 12/06/25 07:59 1 units TID.WM.HS WES Administration Protocol Lisinopril 5 mg 12/06/24 09:00 12/06/24 08:31 Lisinopril 5 Mg Tablet PO 12/06/25 08:59 5 mg DAILY WES Administration Magnesium Oxide 400 mg 12/06/24 09:00 12/06/24 08:31 Magnesium Oxide 400 Mg Tablet PO 12/06/25 08:59 400 mg DAILY WES Administration Melatonin 5 mg 12/05/24 22:29 12/06/24 00:25 Melatonin 5 Mg Tablet PO 12/05/25 22:28 5 mg QHS PRN Administration Insomnia Nitroglycerin 0.4 mg 12/05/24 22:34 Nitroglycerin 0.4 Mg Tab.Subl SUBLINGUAL 12/05/25 22:33 Q5M PRN Chest Pain Ondansetron HCl 4 mg 12/05/24 22:29 Ondansetron Odt 4 Mg Tab.Rapdis PO 12/05/25 22:28 Q4HR PRN Nausea And Vomiting Pantoprazole Sodium 40 mg 12/06/24 09:00 12/06/24 08:31 Pantoprazole 40 Mg Tablet. PO 12/06/25 08:59 40 mg BID WES Administration Sodium Chloride 0 ml 12/05/24 15:13 12/05/24 19:54 Sodium Chloride 0.9 % 10 Ml Syringe IV-PUSH 12/05/25 15:12 10 ml PRN PRN Administration Flush Sodium Chloride 0 ml 12/06/24 06:00 12/06/24 06:03 Sodium Chloride 0.9 % 10 Ml Syringe IV-PUSH 12/06/25 05:59 10 ml QSHIFT WES Administration A&P - Hospitalist Assessment/Plan (1) Dyspnea: (2) Chest pressure: (3) Anemia: (4) Gastroduodenitis with hemorrhage: (5) T2DM (type 2 diabetes mellitus): Plan Dyspnea on exertion Chest pressure ? Echo in a.m. ? Troponin in a.m. ? Consult cardiology?appreciate input Gastroduodenitis with hemorrhage?discharged on 12/02/2024 Anemia?current H&H improved at 8.7/25.7 ? Patient reports black stools, no current bleeding ? Continue pantoprazole twice daily ? CBC in a.m. Chronic conditions T2DM?fingersticks ACHS, SSI AC, continue empagliflozin, hold glimepiride, metformin HTN?lisinopril HLD?atorvastatin CAD?currently has clopidogrel on hold for tooth extraction on Monday DVT PPx?SCDs Diet order?1800 ADA CODE STATUS?full code 12/06/2024 I agree with cardiology as the patient's symptomology appears to be more related to his symptomatic anemia I will defer transfusion of lisinopril his hemoglobin tomorrow. 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 I discussed the plan with the patient and his family members at bedside. We are repeating his echo today as well. Answered all the questions. The patient continues to be stable hemoglobin stable by tomorrow morning I will discharge him. Patient agreement with the plan Documented By: Michelle Aguayo MD 12/06/24 1428 Signed By: <Electronically signed by Michelle Aguayo MD> 12/06/24 1430 [facility] Work Phone: [phone]) 828-510409-26-2025 Progress note Author W Mani [facility] HospitalNote Date/TimeSeptember 2024 2:03pm [place] [address] Cardiology Progress Note Signed Patient: Jesse Garrison MR#: [id number] : 1950 Acct:[id number] Age/Sex: 74 / M Adm Date: 5 Loc: Room: [address] [place] [address] Type: ADM IN Attending Dr: Michelle Aguayo MD Copies to: ~ Date of Service: 12/06/2024 Subjective Principal diagnosis: Recurrent chest discomfort, shortness of breath, fatigue, GI bleed, anemia Interval history: Patient returns following recent discharge from this facility for upper GI bleedand severe anemia; was transfused up to a hemoglobin 7.8 and even climbed further to 8.7 yesterday and is down to 8.2 as of today; and positive rectal exam in the ER. He has has a history of three-vessel PCI performed by myself in December 2023 (11months ago) and hasdone well up until last week with the development of melanotic stools, and EGD documenting erosive gastritis and duodenal ulcer; and overall stabilized off of dual antiplatelet therapies, and initiated on high intensity PPI. Symptoms as noted; we discussed consideration for ischemic reassessment; howeverhe is not a candidate for invasive management or angiography given his recent GIbleed. His left ventricular function historically is normal last assessed in March 2024 by echo. No recent assessment. No evidence of acute coronary syndrome as troponins remain normal and no evidence of congestive heart failure. As discussed with patient and family members and , primary goal at this juncture is healing of the gastroduodenal pathology, maintaining single agent antiplatelet therapy in form of clopidogrel, allowing hemoglobin to hopefully come up on its own to above 10 g/dL at which point I believe he will feel better. Of note he has not picked up his clopidogrel prescription as of yet! We have discussed the importance of maintaining compliance with some form of limited antiplatelet therapy for his own cardiovascular benefit. He does have a left upper molar that needs to be excised, this could be done at any time and can bedone on single agent antiplatelet therapy in my opinion. Otherwise upon review of all data, there is no evidence of ACS or heart failure or arrhythmia; no intervention is warranted he could be discharged home for further follow-up with gastroenterology, primary care and cardiology Exam Physical Exam Vital Signs: Temp Pulse Resp BP Pulse Ox O2 Del Method 98.6 F 68 16 120/64 99 Room Air 12/06/24 07:37 12/06/24 11:15 12/06/24 11:15 12/06/24 11:15 12/06/24 11:15 12/06/24 11:15 Const General: cooperative, comfortable and no acute distress Nutritional Appearance: overweight Orientation: alert, awake and oriented x3 HEENT Head: normal to inspection Neck Neck: normal visual inspection Chest Chest palpation & inspection: normal inspection of the chest Resp Effort & Inspection: normal respiratory effort Auscultation: clear to auscultation bilaterally Cardio Palpation: normal PMI Rate: regular rate Rhythm: regular rhythm Heart Sounds: S1 normal and S2 normal GI Palpation: soft Skin General: no rashes or lesions noted Neuro General: patient alert, patient awake and patient oriented x3 Cognition: normal cognition Speech: speech normal Extrem General: no clubbing, cyanosis or edema Objective Labs 12/06/24 07:25 12/06/24 07:25 Labs: Laboratory Results - last 24 hr 12/05/24 12/05/24 12/05/24 16:08 18:39 23:33 Corrected WBC 6.7 Uncorrected WBC Count 6.7 RBC 2.89 L Hgb 8.7 L Hct 25.7 L MCV 88.9 MCH 30.2 MCHC 33.9 RDW 14.8 Plt Count 405 MPV 7.1 Neut % (Auto) 72.0 Lymph % (Auto) 18.6 [place] % (Auto) 5.3 Eos % (Auto) 3.8 Baso % (Auto) 0.3 Nucleat RBC Rel Count 0.2 Neut # (Auto) 4.8 Lymph # (Auto) 1.2 [place] # (Auto) 0.4 Eos # (Auto) 0.3 Baso # (Auto) 0.0 Monocyte Dist Width 18.12 PT 10.6 INR 0.9 APTT 27.2 PHA Creatinine Clear 85.16 Sodium 139 Potassium 4.1 Chloride 102 Carbon Dioxide 31.1 H Anion Gap 10.0 BUN 18 Creatinine 0.87 Est GFR (CKD-EPI) > 60.0 Glucose 237 H POC Glucose 158 POC Glucose Comment Glu2: cleaned meter Calcium 9.2 Magnesium Total Bilirubin 0.3 AST 18 ALT 22 Alkaline Phosphatase 85 Troponin I High Sens 16 17 B-Natriuretic Peptide 35.0 Total Protein 6.4 Albumin 4.3 Globulin 2.1 Albumin/Globulin Ratio 2.0 Blood Type O Positive Antibody Screen Negative 12/06/24 12/06/24 12/06/24 06:39 07:25 11:07 Corrected WBC 6.3 Uncorrected WBC Count 6.3 RBC 2.75 L Hgb 8.2 L Hct 24.5 L MCV 89.1 MCH 29.9 MCHC 33.5 RDW 14.3 Plt Count 380 MPV 7.4 Neut % (Auto) 67.5 Lymph % (Auto) 20.9 [place] % (Auto) 6.3 Eos % (Auto) 4.9 Baso % (Auto) 0.4 Nucleat RBC Rel Count 0.1 Neut # (Auto) 4.3 Lymph # (Auto) 1.3 [place] # (Auto) 0.4 Eos # (Auto) 0.3 Baso # (Auto) 0.0 Monocyte Dist Width PT INR APTT PHA Creatinine Clear 84.15 Sodium 138 Potassium 4.7 Chloride 106 Carbon Dioxide 30.2 Anion Gap 6.5 BUN 17 Creatinine 0.88 Est GFR (CKD-EPI) > 60.0 Glucose 120 H D POC Glucose 158 169 POC Glucose Comment Glu2: cleaned meter Calcium 8.4 L Magnesium 2.3 Total Bilirubin AST ALT Alkaline Phosphatase Troponin I High Sens 17 B-Natriuretic Peptide Total Protein Albumin Globulin Albumin/Globulin Ratio Blood Type Antibody Screen A&P - Cardiology (1) Chest pressure: Code(s): R07.89 - Other chest pain (2) T2DM (type 2 diabetes mellitus): Code(s): E11.9 - Type 2 diabetes mellitus without complications (3) Dyspnea: Code(s): R06.00 - Dyspnea, unspecified (4) Anemia: Code(s): D64.9 - Anemia, unspecified (5) GI (gastrointestinal bleed): Code(s): K92.2 - Gastrointestinal hemorrhage, unspecified (6) Acute blood loss anemia: Code(s): D62 - Acute posthemorrhagic anemia (7) ASHD (arteriosclerotic heart disease): Code(s): I25.10 - Atherosclerotic heart disease of [place] coronary artery without angina pectoris (8) Type 2 diabetes mellitus with diabetic polyneuropathy: Qualifiers: Diabetes mellitus jail insulin use: without jail use Qualified Code(s): E11.42 - Type 2 diabetes mellitus with diabetic polyneuropathy Code(s): E11.42 - Type 2 diabetes mellitus with diabetic polyneuropathy Plan See above Documented By: Otoniel Singleton DO 12/06/24 1354 Signed By: <Electronically signed by Otoniel Singleton DO> 12/06/24 1408 [facility] Work Phone: [phone]) 345-198009-26-2025 [place] [address] Hospitalist Progress Note Signed Patient: Jesse Garrison MR#: [id number] : 1950 Acct:[id number] Age/Sex: 74 / M Adm Date: 5 Loc: Room: [address] [place] [address] Type: ADM IN Attending Dr: Mihcelle Aguayo MD Copies to: ~ Date of Service: 12/06/2024 Subjective Subjective Narrative: Patient seen and examined at bedside. Accompanied by multiple family members. He still complains ofshortness of breath. No nausea no vomiting no chest pain today. No fever no chills looks tired in the bed. Exam Physical Exam Vital Signs: Temp Pulse Resp BP Pulse Ox O2 Del Method 98.6 F 68 16 120/64 99 Room Air 12/06/24 07:37 12/06/24 11:15 12/06/24 11:15 12/06/24 11:15 12/06/24 11:15 12/06/24 11:15 Narrative: CONST- Appears well -developed and well nourished. Fatigued HEAD - Normocephalic and atraumatic EENT-Sclera nonicteric, conjunctive are non-erythemic, moist oral mucosa, pharynx clear NECK-Supple, no cervical lymphadenopathy CARDIAC-normal rate, regular rhythm, S1 & S2. PULM-diminished, fine crackles to left posterior base, RA, no accessory muscle use or cough noted ABD - Soft. Bowel sounds are normal. Softly distended. No tenderness EXTREM-no edema BLE calves, nontender SKIN- W/D good turgor MS- MAEX4 spontaneously with equal with equal strength NEURO- A&Ox3 speech clear and tongue midline, equal facial symmetry, no focal motor deficits Objective Lab Results 12/06/24 07:25 12/06/24 07:25 Microbiology Results Microbiology 12/05/24 18:39 Stool Stool Occult Blood ([facility]) - Final Meds Allergies and Active Meds Allergies No Known Allergies Allergy (Verified 11/29/24 05:47) Active Meds: Active Medications Generic Name Dose Route Start Last Admin Trade Name Freq PRN Reason Stop Dose Admin Acetaminophen 1,000 mg 12/05/24 22:29 Acetaminophen 500 Mg Tablet PO 12/05/25 22:28 Q6HR PRN Pain Scale 1 - 3 or fever Atorvastatin Calcium 80 mg 12/06/24 21:00 Atorvastatin 80 Mg Tablet PO 12/06/25 20:59 QPM WES Dapagliflozin 10 mg 12/06/24 09:00 12/06/24 08:31 Dapagliflozin 10 Mg Tablet PO 12/06/25 08:59 10 mg DAILY WES Administration Dextrose 0 gm 12/05/24 22:29 Dextrose 50% In Water 25 Gm/50 Ml Syringe IV-PUSH 12/05/25 22:28 PRN PRN Hypoglycemia Glucose 0 gm 12/05/24 22:29 Dextrose 40% Gel 15 Gm Tube PO 12/05/25 22:28 PRN PRN Hypoglycemia Insulin Aspart 0 units 12/06/24 08:00 12/06/24 11:16 Insulin Aspart 300 Units/3 Ml SUBCUT 12/06/25 07:59 1 units TID.WM.HS WES Administration Protocol Lisinopril 5 mg 12/06/24 09:00 12/06/24 08:31 Lisinopril 5 Mg Tablet PO 12/06/25 08:59 5 mg DAILY WES Administration Magnesium Oxide 400 mg 12/06/24 09:00 12/06/24 08:31 Magnesium Oxide 400 Mg Tablet PO 12/06/25 08:59 400 mg DAILY WES Administration Melatonin 5 mg 12/05/24 22:29 12/06/24 00:25 Melatonin 5 Mg Tablet PO 12/05/25 22:28 5 mg QHS PRN Administration Insomnia Nitroglycerin 0.4 mg 12/05/24 22:34 Nitroglycerin 0.4 Mg Tab.Subl SUBLINGUAL 12/05/25 22:33 Q5M PRN Chest Pain Ondansetron HCl 4 mg 12/05/24 22:29 Ondansetron Odt 4 Mg Tab.Rapdis PO 12/05/25 22:28 Q4HR PRN Nausea And Vomiting Pantoprazole Sodium 40 mg 12/06/24 09:00 12/06/24 08:31 Pantoprazole 40 Mg Tablet.Dr PO 12/06/25 08:59 40 mg BID WES Administration Sodium Chloride 0 ml 12/05/24 15:13 12/05/24 19:54 Sodium Chloride 0.9 % 10 Ml Syringe IV-PUSH 12/05/25 15:12 10 ml PRN PRN Administration Flush Sodium Chloride 0 ml 12/06/24 06:00 12/06/24 06:03 Sodium Chloride 0.9 % 10 Ml Syringe IV-PUSH 12/06/25 05:59 10 ml QSHIFT WES Administration A&P - Hospitalist Assessment/Plan (1) Dyspnea: (2) Chest pressure: (3) Anemia: (4) Gastroduodenitis with hemorrhage: (5) T2DM (type 2 diabetes mellitus): Plan Dyspnea on exertion Chest pressure ? Echo in a.m. ? Troponin in a.m. ? Consult cardiology?appreciate input Gastroduodenitis with hemorrhage?discharged on 12/02/2024 Anemia?current H&H improved at 8.7/25.7 ? Patient reports black stools, no current bleeding ? Continue pantoprazole twice daily ? CBC in a.m. Chronic conditions T2DM?fingersticks ACHS, SSI AC, continue empagliflozin, hold glimepiride, metformin HTN?lisinopril HLD?atorvastatin CAD?currently has clopidogrel on hold for tooth extraction on Monday DVT PPx?SCDs Diet order?1800 ADA CODE STATUS?full code 12/06/2024 I agree with cardiology as the patient's symptomology appears to be more related to his symptomatic anemia I will defer transfusion of lisinopril his hemoglobin tomorrow. 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 I discussed the plan with the patient and his family members at bedside. We are repeating his echo today as well. Answered all the questions. The patient continues to be stable hemoglobin stable by tomorrow morning I will discharge him. Patient agreement with the plan Documented By: Michelle Aguayo MD 12/06/24 1428 Signed By: 12/06/24 1430 [facility]09-[facility]2025 [place] [address] Cardiology Progress Note Signed Patient: Jesse Garrison MR#: [id number] : 1950 Acct:[id number] Age/Sex: 74 / M Adm Date: 5 Loc: Room: [address] [place] [address] Type: ADM IN Attending Dr: Michelle Aguayo MD Copies to: ~ Date of Service: 12/06/2024 Subjective Principal diagnosis: Recurrent chest discomfort, shortness of breath, fatigue, GI bleed, anemia Interval history: Patient returns following recent discharge from this facility for upper GI bleedand severe anemia; was transfused up to a hemoglobin 7.8 and even climbed further to 8.7 yesterday and is down to 8.2 as of today; and positive rectal exam in the ER. He has has a history of three-vessel PCI performed by myself in December 2023 (11months ago) and hasdone well up until last week with the development of melanotic stools, and EGD documenting erosive gastritis and duodenal ulcer; and overall stabilized off of dual antiplatelet therapies, and initiated on high intensity PPI. Symptoms as noted; we discussed consideration for ischemic reassessment; howeverhe is not a candidate for invasive management or angiography given his recent GIbleed. His left ventricular function historically is normal last assessed in March 2024 by echo. No recent assessment. No evidence of acute coronary syndrome as troponins remain normal and no evidence of congestive heart failure. As discussed with patient and family members and , primary goal at this juncture is healing of the gastroduodenal pathology, maintaining single agent antiplatelet therapy in form of clopidogrel, allowing hemoglobin to hopefully come up on its own to above 10 g/dL at which point I believe he will feel better. Of note he has not picked up his clopidogrel prescription as of yet! We have discussed the importance of maintaining compliance with some form of limited antiplatelet therapy for his own cardiovascular benefit. He does have a left upper molar that needs to be excised, this could be done at any time and can bedone on single agent antiplatelet therapy in my opinion. Otherwise upon review of all data, there is no evidence of ACS or heart failure or arrhythmia; no intervention is warranted he could be discharged home for further follow-up with gastroenterology, primary care and cardiology Exam Physical Exam Vital Signs: Temp Pulse Resp BP Pulse Ox O2 Del Method 98.6 F 68 16 120/64 99 Room Air 12/06/24 07:37 12/06/24 11:15 12/06/24 11:15 12/06/24 11:15 12/06/24 11:15 12/06/24 11:15 Const General: cooperative, comfortable and no acute distress Nutritional Appearance: overweight Orientation: alert, awake and oriented x3 HEENT Head: normal to inspection Neck Neck: normal visual inspection Chest Chest palpation & inspection: normal inspection of the chest Resp Effort & Inspection: normal respiratory effort Auscultation: clear to auscultation bilaterally Cardio Palpation: normal PMI Rate: regular rate Rhythm: regular rhythm Heart Sounds: S1 normal and S2 normal GI Palpation: soft Skin General: no rashes or lesions noted Neuro General: patient alert, patient awake and patient oriented x3 Cognition: normal cognition Speech: speech normal Extrem General: no clubbing, cyanosis or edema Objective Labs 12/06/24 07:25 12/06/24 07:25 Labs: Laboratory Results - last 24 hr 12/05/24 12/05/24 12/05/24 16:08 18:39 23:33 Corrected WBC 6.7 Uncorrected WBC Count 6.7 RBC 2.89 L Hgb 8.7 L Hct 25.7 L MCV 88.9 MCH 30.2 MCHC 33.9 RDW 14.8 Plt Count 405 MPV 7.1 Neut % (Auto) 72.0 Lymph % (Auto) 18.6 [place] % (Auto) 5.3 Eos % (Auto) 3.8 Baso % (Auto) 0.3 Nucleat RBC Rel Count 0.2 Neut # (Auto) 4.8 Lymph # (Auto) 1.2 [place] # (Auto) 0.4 Eos # (Auto) 0.3 Baso # (Auto) 0.0 Monocyte Dist Width 18.12 PT 10.6 INR 0.9 APTT 27.2 PHA Creatinine Clear 85.16 Sodium 139 Potassium 4.1 Chloride 102 Carbon Dioxide 31.1 H Anion Gap 10.0 BUN 18 Creatinine 0.87 Est GFR (CKD-EPI) > 60.0 Glucose 237 H POC Glucose 158 POC Glucose Comment Glu2: cleaned meter Calcium 9.2 Magnesium Total Bilirubin 0.3 AST 18 ALT 22 Alkaline Phosphatase 85 Troponin I High Sens 16 17 B-Natriuretic Peptide 35.0 Total Protein 6.4 Albumin 4.3 Globulin 2.1 Albumin/Globulin Ratio 2.0 Blood Type O Positive Antibody Screen Negative 12/06/24 12/06/24 12/06/24 06:39 07:25 11:07 Corrected WBC 6.3 Uncorrected WBC Count 6.3 RBC 2.75 L Hgb 8.2 L Hct 24.5 L MCV 89.1 MCH 29.9 MCHC 33.5 RDW 14.3 Plt Count 380 MPV 7.4 Neut % (Auto) 67.5 Lymph % (Auto) 20.9 [place] % (Auto) 6.3 Eos % (Auto) 4.9 Baso % (Auto) 0.4 Nucleat RBC Rel Count 0.1 Neut # (Auto) 4.3 Lymph # (Auto) 1.3 [place] # (Auto) 0.4 Eos # (Auto) 0.3 Baso # (Auto) 0.0 Monocyte Dist Width PT INR APTT PHA Creatinine Clear 84.15 Sodium 138 Potassium 4.7 Chloride 106 Carbon Dioxide 30.2 Anion Gap 6.5 BUN 17 Creatinine 0.88 Est GFR (CKD-EPI) > 60.0 Glucose 120 H D POC Glucose 158 169 POC Glucose Comment Glu2: cleaned meter Calcium 8.4 L Magnesium 2.3 Total Bilirubin AST ALT Alkaline Phosphatase Troponin I High Sens 17 B-Natriuretic Peptide Total Protein Albumin Globulin Albumin/Globulin Ratio Blood Type Antibody Screen A&P - Cardiology (1) Chest pressure: Code(s): R07.89 - Other chest pain (2) T2DM (type 2 diabetes mellitus): Code(s): E11.9 - Type 2 diabetes mellitus without complications (3) Dyspnea: Code(s): R06.00 - Dyspnea, unspecified (4) Anemia: Code(s): D64.9 - Anemia, unspecified (5) GI (gastrointestinal bleed): Code(s): K92.2 - Gastrointestinal hemorrhage, unspecified (6) Acute blood loss anemia: Code(s): D62 - Acute posthemorrhagic anemia (7) ASHD (arteriosclerotic heart disease): Code(s): I25.10 - Atherosclerotic heart disease of [place] coronary artery without angina pectoris (8) Type 2 diabetes mellitus with diabetic polyneuropathy: Qualifiers: Diabetes mellitus jail insulin use: without terminal supervisor use Qualified Code(s): E11.42 - Type 2 diabetes mellitus with diabetic polyneuropathy Code(s): E11.42 - Type 2 diabetes mellitus with diabetic polyneuropathy Plan See above Documented By: Otoniel Singleton DO 12/06/24 1354 Signed By: 12/06/24 1403 [facility]09-26-2025 History and physical note Author Yamilex Verma [facility] Date/TimeSeptember 2024 3:09am [place] [address] Hospitalist H&P Signed Patient: Jesse Garrison MR#: [id number] [id number] : 1950 Acct:[id number] Age/Sex: 74 / M Adm Date: 5 Loc: 3T Room: [address] [place] [address] Type: ADM IN Attending Dr: Elvis Wilkinson DO Copies to: DO Yamilex Uriarte APRN Shawn J Warner, DO~ HPI DATE OF EXAMINATION: 12/05/24 CHIEF COMPLAINT: shortness of breath, chest pressure HISTORY OF PRESENT ILLNESS: Mr. Garrison is a 74-year-old male with a PMH of recent GI bleed, gastroduodenitis, CAD, NSTEMI, leftheart cath with multiple stents, T2DM that presented to the emergency room today for shortness of breath. States he gets short of breath just walking across the room to go to the bathroom, very little activity and he starts to get short of breath, dizzy and chest pressure. He states the chest pressure is on the left side of his chest, denies radiation. He has to sit down right away. He currently denies any symptoms while resting on the cart. States I am fine when I am sitting but when I get up to move I getvery short of breath. He was recently discharged for acute GI bleed requiring transfusion. He states that his bowel movements are still black, not bloody. He is very concerned with the shortness of breath. Denies nausea, vomiting, fever or chills. He is currently speaking in full sentences, on room air. Chest x-ray showed no acute cardiopulmonary abnormality. CTA of the chest was negative for PE or acute cardiopulmonary process. EKG normal sinus rhythm with a right bundle branch block. CBC with an H&H of 8.7/25.7. Coags were unremarkable. CMP with a glucose of 237, otherwise unremarkable. Troponins were 16 and 17. BNP 35. Occult stool was positive. He received 80 mg of Protonix. He will be admitted as inpatient to the [facility] telemetry floor. Review of Systems Review of Systems Review of systems: A 10 point review of systems was obtained, negative unless noted in the HPI or below. [facility] Medical History (Updated 12/05/24 @ 22:51 by Yamilex Verma APRN) Gastroduodenitis with hemorrhage Acute blood loss anemia Nicotine addiction Cervical spondylosis Screening PSA (prostate specific antigen) Medicare annual wellness visit, subsequent Obesity Bradycardia, drug induced NSTEMI (non-ST elevated myocardial infarction) ASHD (arteriosclerotic heart disease) LHC: LCx PCI/stent, LAD PCI/stent, RCA PCI/stent - 12/2023 Asthma SNHL (sensorineural hearing loss) Type 2 diabetes mellitus with diabetic polyneuropathy Type 2 diabetes mellitus with hyperglycemia Transitional cell carcinoma determined by biopsy of bladder 2017 w/ recurrence Personal history of colonic polyps Mucopurulent chronic bronchitis Melanoma in situ, unspecified (03/13/11) Malignant melanoma of cheek History of falling Essential (primary) hypertension Elevated prostate specific antigen (PSA) (06/11/18) Cigarette nicotine dependence in remission Basal cell carcinoma of skin, unspecified Surgical History H/O esophagogastroduodenoscopy (~11/2024) H/O heart artery stent History of left heart catheterization (~12/2023) LCx PCI/stent, LAD PCI/stent, RCA PCI/stent - 12/2023 H/O wrist surgery left H/O colonoscopy (~2020) 2020 H/O cystoscopy 2019 H/O knee surgery 2009 Family History [employer] workers' pneumoconiosis 77 yrs Cancer Lung Mother Diabetes 87 yrs Cancer Colon Sister Cancer Social History Smoking Status: Current every day smoker Tobacco Type: cigars Substance Use Type: None Meds Medications and Allergies Allergies No Known Allergies Allergy (Verified 11/29/24 05:47) Home Medications inhalational spacing device (Aerochamber Mini) #1 ea 10/23/23 [Rx Confirmed 11/29/24] atorvastatin 80 mg tablet 80 mg PO QPM 90 days #90 tabs 12/28/23 [Rx Confirmed 12/05/24] nitroglycerin 0.4 mg sublingual tablet 0.4 mg sublingual Q5M PRN Chest Pain 30 days #25 tabs 12/28/23 [Rx Confirmed 12/05/24] metformin 1,000 mg tablet See Rx Instructions .Route .COMPLEX #90 tabs 06/07/24 [Rx Confirmed 12/05/24] blood sugar diagnostic (TIO NetworksTouch Ultra Test strips) #100 ea 06/17/24 [Rx Confirmed 11/29/24] glimepiride 2 mg tablet 2 mg PO QAM 30 days #30 tabs 09/03/24 [Rx Confirmed 12/05/24] cinnamon bark 500 mg capsule (Cinnamon) 500 mg PO DAILY 11/29/24 [History Confirmed 12/05/24] empagliflozin 25 mg tablet 12.5 mg PO DAILY 11/29/24 [History Confirmed 12/05/24] gabapentin 100 mg capsule 100 mg PO DAILY 11/29/24 [History Confirmed 12/05/24] garlic 1,000 mg capsule (garlic oil) 1,000 mg PO BID 11/29/24 [History Confirmed 12/05/24] magnesium 200 mg tablet 400 mg PO DAILY 11/29/24 [History Confirmed 12/05/24] multivitamin (Daily Multi-Vitamin tablet) 1 tab PO DAILY 11/29/24 [History Confirmed 12/05/24] omega 9-gtn-agx-fish oil 1,000 mg (120 mg-180 mg) capsule (Fish Oil) 1 cap PO BID 11/29/24 [HistoryConfirmed 12/05/24] clopidogrel 75 mg tablet (Plavix) 75 mg PO DAILY 30 days #30 tabs 12/03/24 [Rx Confirmed 12/05/24] Held on 12/05/24. Instructions: Pt having tooth extraction lisinopril 5 mg tablet 5 mg PO DAILY 30 days #30 tabs 12/03/24 [Rx Confirmed 12/05/24] pantoprazole 40 mg tablet,delayed release (Protonix) 40 mg PO DIRECTED 30 days #30 tabs 12/03/24[Rx Confirmed 12/05/24] Exam Physical Exam Vital Signs: Temp Pulse Resp BP Pulse Ox O2 Del Method 98.1 F 71 16 136/64 98 Room Air 12/05/24 14:45 12/05/24 21:00 12/05/24 19:00 12/05/24 21:00 12/05/24 21:00 12/05/24 21:00 Narrative: CONST- Appears well -developed and well nourished. Fatigued HEAD - Normocephalic and atraumatic EENT-Sclera nonicteric, conjunctive are non-erythemic, moist oral mucosa, pharynx clear NECK-Supple, no cervical lymphadenopathy CARDIAC-normal rate, regular rhythm, S1 & S2. PULM-diminished, fine crackles to left posterior base, RA, no accessory muscle use or cough noted ABD - Soft. Bowel sounds are normal. Softly distended. No tenderness EXTREM-no edema BLE calves, nontender SKIN- W/D good turgor MS- MAEX4 spontaneously with equal with equal strength NEURO- A&Ox3 speech clear and tongue midline, equal facial symmetry, no focal motor deficits PSYCH-Mood, affect, and behavior appropriate Results - Hospitalist H&P Lab Results Labs: Laboratory Last Values Corrected WBC 6.7 X10E3/uL (4.1-10.5) 12/05/24 16:08 Uncorrected WBC Count 6.7 x10E3/uL (4.1-10.5) 12/05/24 16:08 RBC 2.89 x10E6/uL (3.90-5.60) L 12/05/24 16:08 Hgb 8.7 g/dL (13.0-17.0) L 12/05/24 16:08 Hct 25.7 % (38.8-50.0) L 12/05/24 16:08 MCV 88.9 fl (83.5-101) 12/05/24 16:08 MCH 30.2 pg (27.5-35.2) 12/05/24 16:08 MCHC 33.9 g/dL (32.5-35.6) 12/05/24 16:08 RDW 14.8 % (12.0-14.8) 12/05/24 16:08 Plt Count 405 x10E3/uL (150-450) 12/05/24 16:08 MPV 7.1 fl (6.6-10.1) 12/05/24 16:08 Neut % (Auto) 72.0 % (.) 12/05/24 16:08 Lymph % (Auto) 18.6 % (.) 12/05/24 16:08 [place] % (Auto) 5.3 % (.) 12/05/24 16:08 Eos % (Auto) 3.8 % (.) 12/05/24 16:08 Baso % (Auto) 0.3 % (.) 12/05/24 16:08 Nucleat RBC Rel Count 0.2 /100 WBC (0-0.5) 12/05/24 16:08 Neut # (Auto) 4.8 x10E3/uL (1.8-7.7) 12/05/24 16:08 Lymph # (Auto) 1.2 x10E3/uL (1.00-4.8) 12/05/24 16:08 [place] # (Auto) 0.4 x10E3/uL (0.0-0.8) 12/05/24 16:08 Eos # (Auto) 0.3 x10E3/uL (0.0-0.45) 12/05/24 16:08 Baso # (Auto) 0.0 x10E3/uL (0.0-0.2) 12/05/24 16:08 Monocyte Dist Width 18.12 % (0.00-20.00) 12/05/24 16:08 PT 10.6 Seconds (9.0-12.9) 12/05/24 16:08 INR 0.9 12/05/24 16:08 APTT 27.2 Seconds (25.1-36.5) 12/05/24 16:08 PHA Creatinine Clear 85.16 12/05/24 16:08 Sodium 139 mmol/L (136-145) 12/05/24 16:08 Potassium 4.1 mmol/L (3.5-5.1) 12/05/24 16:08 Chloride 102 mmol/L (98-107) 12/05/24 16:08 Carbon Dioxide 31.1 mmol/L (21.0-31.0) H 12/05/24 16:08 Anion Gap 10.0 mEq/L (6.0-15.0) 12/05/24 16:08 BUN 18 mg/dL (7-25) 12/05/24 16:08 Creatinine 0.87 mg/dL (0.70-1.30) 12/05/24 16:08 Est GFR (CKD-EPI) > 60.0 mL/Min 12/05/24 16:08 Glucose 237 mg/dL (70-100) H 12/05/24 16:08 Calcium 9.2 mg/dL (8.6-10.3) 12/05/24 16:08 Total Bilirubin 0.3 mg/dl (0.3-1.0) 12/05/24 16:08 AST 18 U/L (13-39) 12/05/24 16:08 ALT 22 U/L (7-52) 12/05/24 16:08 Alkaline Phosphatase 85 U/L (34-104) 12/05/24 16:08 Troponin I High Sens 17 ng/L (0-20) 12/05/24 18:39 B-Natriuretic Peptide 35.0 pg/mL (5-100) 12/05/24 16:08 Total Protein 6.4 gm/dL (6.4-8.9) 12/05/24 16:08 Albumin 4.3 gm/dL (3.5-5.7) 12/05/24 16:08 Globulin 2.1 gm/dL 12/05/24 16:08 Albumin/Globulin Ratio 2.0 12/05/24 16:08 Blood Type O Positive 12/05/24 16:08 Antibody Screen Negative 12/05/24 16:08 Microbiology Results Micro: Microbiology - Results from entire visit 12/05/24 18:39 Stool Stool Occult Blood ([facility]) - Final Assessment & Plan Assessment/Plan (1) Dyspnea: (2) Chest pressure: (3) Anemia: (4) Gastroduodenitis with hemorrhage: (5) T2DM (type 2 diabetes mellitus): Plan Dyspnea on exertion Chest pressure ? Echo in a.m. ? Troponin in a.m. ? Consult cardiology?appreciate input Gastroduodenitis with hemorrhage?discharged on 12/02/2024 Anemia?current H&H improved at 8.7/25.7 ? Patient reports black stools, no current bleeding ? Continue pantoprazole twice daily ? CBC in a.m. Chronic conditions T2DM?fingersticks ACHS, SSI AC, continue empagliflozin, hold glimepiride, metformin HTN?lisinopril HLD?atorvastatin CAD?currently has clopidogrel on hold for tooth extraction on Monday DVT PPx?SCDs Diet order?1800 ADA CODE STATUS?full code I reviewed the history, formulated the plan of care and confirmed the Nurse Practitioner's assessment and plan after discussion with her about the case. - Elvis Wilkinson DO IP vs OBS Justification Based on differential dx, clinical care plan, and risk of adverse events, if untreated, in my clinical judgement this patient requires an acute care setting as: INPATIENT because of an expectation ofan over 2 midnight stay. Estimated length of stay (# of days): 3 Documented By: Yamilex Verma APRN 12/05/242235 Signed By: <Electronically signed by MARY Verma> 12/05/242254 <Electronically signed by Elvsi Wilkinson DO> 12/06/24 1039 [facility] Work Phone: 1(360) 510-528109-26-2025 [place] [address] Hospitalist H&P Signed Patient: Jesse Garrison MR#: [id number] : 1950 Acct:[id number] Age/Sex: 74 / M Adm Date: 5 Loc: Room: [address] [place] [address] Type: ADM IN Attending Dr: Elvis Wilkinson DO Copies to: DO Yamilex Uriarte APRN Shawn J Warner, ~ HPI DATE OF EXAMINATION: 12/05/24 CHIEF COMPLAINT: shortness of breath, chest pressure HISTORY OF PRESENT ILLNESS: Mr. Garrison is a 74-year-old male with a PMH of recent GI bleed, gastroduodenitis, CAD, NSTEMI, leftheart cath with multiple stents, T2DM that presented to the emergency room today for shortness of breath. States he gets short of breath just walking across the room to go to the bathroom, very little activity and he starts to get short of breath, dizzy and chest pressure. He states the chest pressure is on the left side of his chest, denies radiation. He has to sit down right away. He currently denies any symptoms while resting on the cart. States I am fine when I am sitting but when I get up to move I getvery short of breath. He was recently discharged for acute GI bleed requiring transfusion. He states that his bowel movements are still black, not bloody. He is very concerned with the shortness of breath. Denies nausea, vomiting, fever or chills. He is currently speaking in full sentences, on room air. Chest x-ray showed no acute cardiopulmonary abnormality. CTA of the chest was negative for PE or acute cardiopulmonary process. EKG normal sinus rhythm with a right bundle branch block. CBC with an H&H of 8.7/25.7. Coags were unremarkable. CMP with a glucose of 237, otherwise unremarkable. Troponins were 16 and 17. BNP 35. Occult stool was positive. He received 80 mg of Protonix. He will be admitted as inpatient to the [facility] telemetry floor. Review of Systems Review of Systems Review of systems: A 10 point review of systems was obtained, negative unless noted in the HPI or below. [facility] Medical History (Updated 12/05/24 @ 22:51 by Yamilex Verma APRN) Gastroduodenitis with hemorrhage Acute blood loss anemia Nicotine addiction Cervical spondylosis Screening PSA (prostate specific antigen) Medicare annual wellness visit, subsequent Obesity Bradycardia, drug induced NSTEMI (non-ST elevated myocardial infarction) ASHD (arteriosclerotic heart disease) C: LCx PCI/stent, LAD PCI/stent, RCA PCI/stent - 12/2023 Asthma SNHL (sensorineural hearing loss) Type 2 diabetes mellitus with diabetic polyneuropathy Type 2 diabetes mellitus with hyperglycemia Transitional cell carcinoma determined by biopsy of bladder 2017 w/ recurrence Personal history of colonic polyps Mucopurulent chronic bronchitis Melanoma in situ, unspecified (03/13/11) Malignant melanoma of cheek History of falling Essential (primary) hypertension Elevated prostate specific antigen (PSA) (06/11/18) Cigarette nicotine dependence in remission Basal cell carcinoma of skin, unspecified Surgical History H/O esophagogastroduodenoscopy (~11/2024) H/O heart artery stent History of left heart catheterization (~12/2023) LCx PCI/stent, LAD PCI/stent, RCA PCI/stent - 12/2023 H/O wrist surgery left H/O colonoscopy (~2020) 2020 H/O cystoscopy 2019 H/O knee surgery 2009 Family History Father [employer] workers' pneumoconiosis 77 yrs Cancer Lung Mother Diabetes 87 yrs Cancer Colon Sister Cancer Social History Smoking Status: Current every day smoker Tobacco Type: cigars Substance Use Type: None Meds Medications and Allergies Allergies No Known Allergies Allergy (Verified 11/29/24 05:47) Home Medications inhalational spacing device (Aerochamber Mini) #1 ea 10/23/23 [Rx Confirmed 11/29/24] atorvastatin 80 mg tablet 80 mg PO QPM 90 days #90 tabs 12/28/23 [Rx Confirmed 12/05/24] nitroglycerin 0.4 mg sublingual tablet 0.4 mg sublingual Q5M PRN Chest Pain 30 days #25 tabs 12/28/23 [Rx Confirmed 12/05/24] metformin 1,000 mg tablet See Rx Instructions .Route .COMPLEX #90 tabs 06/07/24 [Rx Confirmed 12/05/24] blood sugar diagnostic (TIO [employer]Touch Ultra Test strips) #100 ea 06/17/24 [Rx Confirmed 11/29/24] glimepiride 2 mg tablet 2 mg PO QAM 30 days #30 tabs 09/03/24 [Rx Confirmed 12/05/24] cinnamon bark 500 mg capsule (Cinnamon) 500 mg PO DAILY 11/29/24 [History Confirmed 12/05/24] empagliflozin 25 mg tablet 12.5 mg PO DAILY 11/29/24 [History Confirmed 12/05/24] gabapentin 100 mg capsule 100 mg PO DAILY 11/29/24 [History Confirmed 12/05/24] garlic 1,000 mg capsule (garlic oil) 1,000 mg PO BID 11/29/24 [History Confirmed 12/05/24] magnesium 200 mg tablet 400 mg PO DAILY 11/29/24 [History Confirmed 12/05/24] multivitamin (Daily Multi-Vitamin tablet) 1 tab PO DAILY 11/29/24 [History Confirmed 12/05/24] omega 8-zar-kci-fish oil 1,000 mg (120 mg-180 mg) capsule (Fish Oil) 1 cap PO BID 11/29/24 [HistoryConfirmed 12/05/24] clopidogrel 75 mg tablet (Plavix) 75 mg PO DAILY 30 days #30 tabs 12/03/24 [Rx Confirmed 12/05/24] Held on 12/05/24. Instructions: Pt having tooth extraction lisinopril 5 mg tablet 5 mg PO DAILY 30 days #30 tabs 12/03/24 [Rx Confirmed 12/05/24] pantoprazole 40 mg tablet,delayed release (Protonix) 40 mg PO DIRECTED 30 days #30 tabs 12/03/24[Rx Confirmed 12/05/24] Exam Physical Exam Vital Signs: Temp Pulse Resp BP Pulse Ox O2 Del Method 98.1 F 71 16 136/64 98 Room Air 12/05/24 14:45 12/05/24 21:00 12/05/24 19:00 12/05/24 21:00 12/05/24 21:00 12/05/24 21:00 Narrative: CONST- Appears well -developed and well nourished. Fatigued HEAD - Normocephalic and atraumatic EENT-Sclera nonicteric, conjunctive are non-erythemic, moist oral mucosa, pharynx clear NECK-Supple, no cervical lymphadenopathy CARDIAC-normal rate, regular rhythm, S1 & S2. PULM-diminished, fine crackles to left posterior base, RA, no accessory muscle use or cough noted ABD - Soft. Bowel sounds are normal. Softly distended. No tenderness EXTREM-no edema BLE calves, nontender SKIN- W/D good turgor MS- MAEX4 spontaneously with equal with equal strength NEURO- A&Ox3 speech clear and tongue midline, equal facial symmetry, no focal motor deficits PSYCH-Mood, affect, and behavior appropriate Results - Hospitalist H&P Lab Results Labs: Laboratory Last Values Corrected WBC 6.7 X10E3/uL (4.1-10.5) 12/05/24 16:08 Uncorrected WBC Count 6.7 x10E3/uL (4.1-10.5) 12/05/24 16:08 RBC 2.89 x10E6/uL (3.90-5.60) L 12/05/24 16:08 Hgb 8.7 g/dL (13.0-17.0) L 12/05/24 16:08 Hct 25.7 % (38.8-50.0) L 12/05/24 16:08 MCV 88.9 fl (83.5-101) 12/05/24 16:08 MCH 30.2 pg (27.5-35.2) 12/05/24 16:08 MCHC 33.9 g/dL (32.5-35.6) 12/05/24 16:08 RDW 14.8 % (12.0-14.8) 12/05/24 16:08 Plt Count 405 x10E3/uL (150-450) 12/05/24 16:08 MPV 7.1 fl (6.6-10.1) 12/05/24 16:08 Neut % (Auto) 72.0 % (.) 12/05/24 16:08 Lymph % (Auto) 18.6 % (.) 12/05/24 16:08 [place] % (Auto) 5.3 % (.) 12/05/24 16:08 Eos % (Auto) 3.8 % (.) 12/05/24 16:08 Baso % (Auto) 0.3 % (.) 12/05/24 16:08 Nucleat RBC Rel Count 0.2 /100 WBC (0-0.5) 12/05/24 16:08 Neut # (Auto) 4.8 x10E3/uL (1.8-7.7) 12/05/24 16:08 Lymph # (Auto) 1.2 x10E3/uL (1.00-4.8) 12/05/24 16:08 [place] # (Auto) 0.4 x10E3/uL (0.0-0.8) 12/05/24 16:08 Eos # (Auto) 0.3 x10E3/uL (0.0-0.45) 12/05/24 16:08 Baso # (Auto) 0.0 x10E3/uL (0.0-0.2) 12/05/24 16:08 Monocyte Dist Width 18.12 % (0.00-20.00) 12/05/24 16:08 PT 10.6 Seconds (9.0-12.9) 12/05/24 16:08 INR 0.9 12/05/24 16:08 APTT 27.2 Seconds (25.1-36.5) 12/05/24 16:08 PHA Creatinine Clear 85.16 12/05/24 16:08 Sodium 139 mmol/L (136-145) 12/05/24 16:08 Potassium 4.1 mmol/L (3.5-5.1) 12/05/24 16:08 Chloride 102 mmol/L (98-107) 12/05/24 16:08 Carbon Dioxide 31.1 mmol/L (21.0-31.0) H 12/05/24 16:08 Anion Gap 10.0 mEq/L (6.0-15.0) 12/05/24 16:08 BUN 18 mg/dL (7-25) 12/05/24 16:08 Creatinine 0.87 mg/dL (0.70-1.30) 12/05/24 16:08 Est GFR (CKD-EPI) > 60.0 mL/Min 12/05/24 16:08 Glucose 237 mg/dL (70-100) H 12/05/24 16:08 Calcium 9.2 mg/dL (8.6-10.3) 12/05/24 16:08 Total Bilirubin 0.3 mg/dl (0.3-1.0) 12/05/24 16:08 AST 18 U/L (13-39) 12/05/24 16:08 ALT 22 U/L (7-52) 12/05/24 16:08 Alkaline Phosphatase 85 U/L (34-104) 12/05/24 16:08 Troponin I High Sens 17 ng/L (0-20) 12/05/24 18:39 B-Natriuretic Peptide 35.0 pg/mL (5-100) 12/05/24 16:08 Total Protein 6.4 gm/dL (6.4-8.9) 12/05/24 16:08 Albumin 4.3 gm/dL (3.5-5.7) 12/05/24 16:08 Globulin 2.1 gm/dL 12/05/24 16:08 Albumin/Globulin Ratio 2.0 12/05/24 16:08 Blood Type O Positive 12/05/24 16:08 Antibody Screen Negative 12/05/24 16:08 Microbiology Results Micro: Microbiology - Results from entire visit 12/05/24 18:39 Stool Stool Occult Blood ([facility]) - Final Assessment & Plan Assessment/Plan (1) Dyspnea: (2) Chest pressure: (3) Anemia: (4) Gastroduodenitis with hemorrhage: (5) T2DM (type 2 diabetes mellitus): Plan Dyspnea on exertion Chest pressure ? Echo in a.m. ? Troponin in a.m. ? Consult cardiology?appreciate input Gastroduodenitis with hemorrhage?discharged on 12/02/2024 Anemia?current H&H improved at 8.7/25.7 ? Patient reports black stools, no current bleeding ? Continue pantoprazole twice daily ? CBC in a.m. Chronic conditions T2DM?fingersticks ACHS, SSI AC, continue empagliflozin, hold glimepiride, metformin HTN?lisinopril HLD?atorvastatin CAD?currently has clopidogrel on hold for tooth extraction on Monday DVT PPx?SCDs Diet order?1800 ADA CODE STATUS?full code I reviewed the history, formulated the plan of care and confirmed the Nurse Practitioner's assessment and plan after discussion with her about the case. - Elvis Wilkinson, DO IP vs OBS Justification Based on differential dx, clinical care plan, and risk of adverse events, if untreated, in my clinical judgement this patient requires an acute care setting as: INPATIENT because of an expectation ofan over 2 midnight stay. Estimated length of stay (# of days): 3 Documented By: Yamilex Verma APRN 12/05/242235 Signed By: 12/05/24225412/06/24 0309 [facility]09-25-2025 Radiology Diagnostic study note [facility] Main [place] [address] [place] [address] CT Scan Report Signed Patient: Jesse Garrison MR#: [id number] : 1950 Acct:[id number] Age/Sex: 74 / M ADM Date: 5 Loc: ER Room: Type: [facility] ER Attending Dr: Copies to: Mavis Gonzalez APRN~ Ordering Provider: Mavis Gonzalez APRN Date of Service: 12/05/24 CT/CT angio chest PE protocol: sob CT ANGIOGRAM OF THE CHEST, PULMONARY EMBOLISM PROTOCOL: CLINICAL INFORMATION: Shortness breath TECHNIQUE: Following intravenous injection of contrast CT scans of the chest were obtained using pulmonary embolism protocol. Coronal and sagittal reconstructed images.The CT exam was performed usingone or more of the following dose reduction [...] Mendoza M.D. 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 acuteSeptember 2024 8:13amAcute electrocardiogram changesdeletedSeptember 2024 8:13amAnemiadeletedSeptember 2024 8:13amDyslipidemiadeleted November 29, 2024 8:13amGI bleeddeletedSeptember 2024 8:13amStented coronary arterydeletedSept2024 8:13amAnemiaacuteSept2024 8:28pmDyspneaacuteSept2024 8:28pmGastroduodenitis with hemorrhage acuteSept2024 8:28pmGI (gastrointestinal bleed)acuteSept2024 8:28htH1ZN (type 2 diabetes mellitus)acuteSept2024 8:28pm [facility] Work Phone: 1(226) 516-273209-19-2025 Evaluation note* Diagnosis Onset Date Resolution Status Admit Date Essential (primary) hypertension acuteSept2024 8:13amLong term (current) use of antithrombotics/antiplateletsacuteSeptember 2024 8:13amMelenaacute November 29, 2024 8: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 acuteSept2024 8:13amAcute electrocardiogram changesdeletedSept2024 8:13amAnemiadeletedSeptember 2024 8:13amDyslipidemiadeleted November 29, 2024 8:13amGI bleeddeletedSeptember 2024 8:13amStented coronary arterydeletedSeptember 2024 8:13amAcute blood loss anemiaacute December 05, 2024 8:28pmAnemiaacuteSeptember 25th, 2025 8:28pmASHD (arteriosclerotic heart disease)acuteSept2024 8:28pmChest pressure acuteSept2024 8:28pmDyspneaacuteSept2024 8:28pm Gastroduodenitis with hemorrhageacuteSept2024 8:28pmGI (gastrointestinal bleed)acutept2024 8:41dhH0HG (type 2 diabetes mellitus)acuteSept2024 8: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acuteSept2024 8:28pm [facility] Work Phone: [phone]) 539-672409-19-2025 Evaluation note* Diagnosis Onset Date Resolution Status Admit Date Essential (primary) hypertension acuteSept2024 8:13amLong term (current) use of antithrombotics/antiplateletsacuteSeptember 2024 8: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acuteSept2024 8:13amAcute electrocardiogram changesdeletedSept2024 8:13amAnemiadeleted November 29, 2024 8:13amDyslipidemiadeletedSeptember 2024 8:13amGI bleeddeletedSeptember 2024 8:13amMelenadeletedSeptember 2024 8:13am Stented coronary arterydeletedSeptember 2024 8:13amAcute blood loss anemia acuteSept2024 8:28pmASHD (arteriosclerotic heart disease)acute December 05, 2024 8:28pmDyspneaacuteSept2024 8:28pm Gastroduodenitis with hemorrhageacuteSept2024 8: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acuteSept2024 8:28pmAnemia deletedSept2024 8:28pmChest pressuredeletedSept2024 8:28pmGI (gastrointestinal bleed)deletedSept2024 8:17rjB1XE (type 2 diabetes mellitus)deletedpt2024 8:28pmAcute blood loss anemiaacute December 10, 2024 1:55pmAdverse reaction to antiplatelet agentacuteSept2024 1:55pmASHD (arteriosclerotic heart disease)acutept2024 1:55pmEssential (primary) hypertensionacutept2024 1:55pm Gastroduodenitis with hemorrhageacutept2024 1:55pmMucopurulent chronic bronchitisacutept2024 1:55pmNicotine addictionacute December 10, 2024 1:55pmObesityacuteSept2024 1:55pmType 2 diabetes mellitus with diabetic polyneuropathyacuteSept2024 1:55pm Type 2 diabetes mellitus with hyperglycemiaacutept2024 1:55pm [facility] Work Phone: 1(185) 925-920509-19-2025 Evaluation note* Diagnosis Onset Date Resolution Status Admit Date Acute electrocardiogram changes acutept2024 8:13amAnemiaacuteSept2024 8:13am DyslipidemiaacuteSept2024 8:13amEssential (primary) hypertension acuteSept2024 8:13amGI bleedacuteSept2024 8:13amLong term (current) use of antithrombotics/antiplateletsacuteSept2024 8:13amMelenaacuteSept2024 8:13amStented coronary arteryacute November 29, 2024 8: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 acuteSept2024 8:13am [facility] Work Phone: 1([phone]) 765-653309-19-2025 Evaluation note* Diagnosis Onset Date Resolution Status Admit Date Essential (primary) hypertension resolvedpt2024 8:13amLong term (current) use of antithrombotics/antiplateletsresolvedpt2024 8:13amMelenaresolved November 29, 2024 8: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 resolvedSept2024 8:13amAcute electrocardiogram changesdeleted November 29, 2024 8:13amAnemiadeletedSeptember 2024 8:13amDyslipidemia deletedSeptember 2024 8:13amGI bleeddeletedSeptember 2024 8:13am Stented coronary arterydeletedSeptember 2024 8:13amAcute blood loss anemia acuteSept2024 8:28pmASHD (arteriosclerotic heart disease)acute December 05, 2024 8:28pmGastroduodenitis with hemorrhageacuteSept2024 8:28pmChest pressureresolvedSept2024 8:28pmDyspnearesolved December 05, 2024 8: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 resolvedSept2024 8:28pmAnemiadeletedSept2024 8:28pmGI (gastrointestinal bleed)deletedSept2024 8:33geV5XO (type 2 diabetes mellitus)deletedSept2024 8:28pmAcute blood loss anemiaacuteSept2024 1:55pmAdverse reaction to antiplatelet agentacuteSept2024 1:55pmASHD (arteriosclerotic heart disease)acuteSept2024 1:55pm Gastroduodenitis with hemorrhageacuteSept2024 1:55pmMucopurulent chronic bronchitisacuteSept2024 1:55pmNicotine addictionacute December 10, 2024 1:55pmObesityacuteSeptember 2024 1:55pmType 2 diabetes mellitus with hyperglycemiaacuteSept2024 1:55pmEssential (primary) hypertensionresolvedSept2024 1: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 1:55pmAcute blood loss anemiaacuteOctober 2024 8:19amAdverse reaction to antiplatelet agentacuteOctober 2024 8:19amASHD (arteriosclerotic heart disease)acute December 24, 2024 8:19amGastroduodenitis with hemorrhageacuteOctober 2024 8:19amMucopurulent chronic bronchitisacuteOctober 2024 8:19amNicotine addictionacuteOctober 2024 8:19amObesityacuteOctober 2024 8:19amType 2 diabetes mellitus with hyperglycemiaacuteOctober 2024 8:19amEssential (primary) hypertensionresolvedOctober 2024 8:19amType 2 diabetes mellitus with diabetic polyneuropathyresolvedOctober 2024 8:19am [facility] Work Phone: 1(412) 625-750909-03-2025 NotePatient Education Oncology Cancer Screening for Males [...] such as being an person or having aclose family member with prostate cancer. ??? You have had gene changes or a genetic condition that was passed on to you from a parent (inherited). These gene changes or genetic conditions include BRCA1 or BRCA2 gene mutations or Jones syndrome. ??? You have symptoms of prostate cancer, such as problems urinating or problems getting or keepingan erection (erectile dysfunction). When you have been [...] if anything looks unusual. Males with a yzihtx-tqww-ifcnxx risk for skin cancer may want to see a bioinformatics support specialist (dermatologi (more content not included)...[facility]06-24-2025 Evaluation note* Diagnosis Onset Date Resolution Status Admit Date ASHD (arteriosclerotic heart disease) acuteJun2024 8:48amBradycardia, drug inducedacuteJune 2024 8:48am Essential (primary) hypertensionacuteJun2024 8:48amMucopurulent chronic bronchitisacuteJune 2024 8:48amNicotine addictionacuteJun2024 8:48amObesityacuteJune 2024 8:48amType 2 diabetes mellitus with hyperglycemiaacuteJun2024 8:48amImpacted cerumen of both earsdeletedJun2024 8:48amAcute electrocardiogram changesacuteSept2024 8:13am AnemiaacuteSeptember 2024 8:13amEssential (primary) hypertensionacute November 29, 2024 8:13amGI bleedacuteSeptember 2024 8:13amLong term (current) use of antithrombotics/antiplateletsacuteSept2024 8:13am MelenaacuteSept2024 8: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acuteSept2024 8:13am [facility] Work Phone: 1(316) 990-454304-30-2025 History of Present illness Narrative* Ar Singleton DO - 07/10/2024 9:40 AM EDT Chief Complaint Patient presents with Follow-up 6month [...] appropriate GDMT for history of ACS/non-ST elevation AR with three-vessel revascularization December 2023 details of [...] Scribe Attestation By signing my name below, I, Christian Bai LPN attest that this documentation has been prepared under the direction and in the presence of Deridre Singleton DO. Provider Attestation - Scribe documentation All medical record entries made by the Scribe were at my direction and personally dictated by me. Ihave reviewed the chart and agree that the record accurately reflects my personal performance of the history, physical exam, discussion and plan. documented in this [facility] Work Phone: 1(589) 108-768904-30-2025 Instructions* Patient Instructions* Ariella Webster LPN - 07/10/2024 9:40 AM [...] Provided instructions on exercise. documented in this [facility] Work Phone: 1(100) 994-875810-30-2024 History of Present illness Narrative* Ar Singleton, DO - 01/10/2024 11:40 AM EDT Subjective Jesse Garrison is a 73 y.o. male Chief Complaint Follow-up 73-year-old gentleman here for TCM office visit following non-ST elevation AR with three-vessel revascularization of the LAD, circumflex and RCA with IVUS guidance details of the interventional report are reviewed and discussed with patient. Patient also has diabetes, sugars have been running 170s to 180 from what he tells me post PCI. [facility] Anthony Monet is keeping a close eye on his sugars and has a follow-up in February. LV function is normal, he is otherwise doing well with no recurrence of angina, shortness of breathor nitrate usage or repeat events. His states [...] By signing my name below, Kasey Diana LPN Scribe attest that this documentation has been prepared under the direction and in the presence of Deirdre Singleton DO. Provider Attestation - Scribe documentation All medical record entries made by the Scribe were at my direction and personally dictated by me. Chela reviewed the chart and agree that the record accurately reflects my personal performance of the history, physical exam, discussion and plan. documented in this [facility] Work Phone: 1(541) 863-843410-30-2024 Instructions* Patient Instructions* Kasey Dodd LPN - 01/10/2024 11:40 AM [...] Provided instructions on exercise. documented in this [facility] Work Phone: 1(695) 976-451410-17-2024 Progress note Author [facility] December 28, 2023 10:46amNote Date/TimeOct2023 10:46am[place] [address] Cardiology Progress Note Signed Patient: Jesse Garrison MR#: [id number] : 1950 Acct:[id number] Age/Sex: 73 / M Adm Date: 4 Loc: Room: [address] [place] [address] Type: ADM IN Attending Dr: Olga Bailon MD Copies to: ~ Date of Service: 12/28/2023 Subjective Principal diagnosis: Non-ST elevation AR, three-vessel ASHD Interval history: Mr. Garrison is a 73 year old male seen in interventional cardiology consultation at request of [facility] nurse practitioner, and [facility] health hospitalist and patient who is transferred at my request from [facility] with new onset chest heaviness pressure and discomfortoriginally presented to his primary care physician's office, Dr. Monet, who then appropriately had him go to [facility] for further workup. Troponins were initially elevated, ECG revealed sinus rhythm with right bundle branch block andT wave abnormality. Case was discussed with nurse practitioner at [place] and made plans for antithrombotic therapies and transfer to [facility] for early invasive management. Troponin [...] MPV Neut % (Auto) Lymph % (Auto) [place] % (Auto) Eos % (Auto) Baso % (Auto) Nucleat RBC Rel Count Neut # (Auto) Lymph # (Auto) [place] # (Auto) Eos # (Auto) Baso # [...] MPV Neut % (Auto) Lymph % (Auto) [place] % (Auto) Eos % (Auto) Baso % (Auto) Nucleat RBC Rel Count Neut # (Auto) Lymph # (Auto) [place] # (Auto) Eos # (Auto) Baso # [...] MPV Neut % (Auto) Lymph % (Auto) [place] % (Auto) Eos % (Auto) Baso % (Auto) Nucleat RBC Rel Count Neut # (Auto) Lymph # (Auto) [place] # (Auto) Eos # (Auto) Baso # [...] % (Auto) 70.6 Lymph % (Auto) 22.0 [place] % (Auto) 5.6 Eos % (Auto) 1.5 Baso % (Auto) 0.3 Nucleat RBC Rel Count 0.0 Neut # (Auto) 9.1 H Lymph # (Auto) 2.8 [place] # (Auto) 0.7 Eos # (Auto) 0.2 [...] diabetes mellitus with hyperglycemia: Qualifiers: Diabetes mellitus jail insulin use: without terminal supervisor use Qualified Code(s): E11.65 - Type 2 diabetes mellitus with hyperglycemia Code(s): E11.65 - Type 2 diabetes mellitus with hyperglycemia (5) Essential (primary) hypertension: Code(s): I10 - Essential (primary) hypertension (6) Elevated cholesterol: Code(s): E78.00 - Pure hypercholesterolemia, unspecified Plan See above, proceed with early invasive manage Documented By: Otoniel Singleton DO 12/28/231041 Signed By: <Electronically signed by Otoniel Singleton DO> 12/28/23 1046 [facility] Work Phone: 1(782) 865-515710-17-2024 Progress note Author Olga Bailon [facility] December 28, 2023 12:14amNote Date/TimeOctober 2023 7:00pm[place] [address] Hospitalist Progress Note Signed Patient: Jesse Garrison MR#: [id number] : 1950 Acct:[id number] Age/Sex: 73 / M Adm Date: 4 Loc: Room: [address] [place] [address] Type: ADM IN Attending Dr: Olga Bailon MD Copies to: ~ Date of Service: 12/27/2023 Subjective Subjective Narrative: Assessment And Plan 73M with PMH of HTN, DM, HLD, Tobacco abuse (Cigar) who presented to his PCP with intermittent chest pressure then send to [facility] ED for evaluation he was found with NSTEMI and transferredfor the need of cardiology evaluation NSTEMI He was started on heparin drip Troponin up to 1100 LDL 37 He underwent LHC shows Severe three-vessel ASHD (Infarct vessel 99% mid circumflex with bgvvooavpro70% mid LAD and 85% proximal RCA disease [...] 1 each 12/26/23 21:27 Consult To Pharmacy [facility] 12/25/24 21:26 .PHACONSULT PRN ZZ.Pharmacy Consult Protocol Miscellaneous Information 1 each 12/27/23 09:00 [facility] 12/26/24 08:59 .PHACONSULT PRN ZZ.Pharmacy Consult Protocol [...] <Electronically signed by Olga Bailon MD> 12/28/23 0014 [facility] Work Phone: 1(398) 982-846110-16-2024 Consult note Author W Mani [facility] December 27, 2023 3:25pmNote Date/TimeOct2023 3:23pmKatherine [place] [id number] Cardiology Consult Note Signed Patient: Jesse Garrison MR#: [id number] : 1950 Acct:[id number] Age/Sex: 73 / M Adm Date: 4 Loc: 4P Room: 4G5519-3 Type: ADM IN Attending Dr: Olga Bailon MD Copies to: DO Olga Uriarte MD W Malachi Singleton DO~ Cardiology HPI History of Present Illness Consult Date: 12/27/23 Reason for Consult: Non-ST elevation AR HPI: Mr. Garrison is a 73 year old male seen in interventional cardiology consultation at request of [facility] nurse practitioner, and [facility] health hospitalist and patient who is transferred at my request from [facility] with new onset chest heaviness pressure and discomfortoriginally presented to his primary care physician's office, Dr. Monet, who then appropriately had him go to [facility] for further workup. Troponins were initially elevated, ECG revealed sinus rhythm with right bundle branch block andT wave abnormality. Case was discussed with nurse practitioner at [place] and made plans for antithrombotic therapies and transfer to [facility] for early invasive management. Troponin [...] with early invasive management and possible revascularization. 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 Radiculopathy, cervical region (04/11/14) Personal history of colonic polyps Mucopurulent chronic bronchitis Melanoma in situ, unspecified (03/13/11) Malignant melanoma of cheek History of falling Essential (primary) hypertension Elevated prostate specific antigen (PSA) (06/11/18) Cigarette nicotine dependence in remission Basal cell carcinoma of skin, unspecified Surgical History (Updated 12/26/23 @ 21:08 by Sayda Horne RN) H/O wrist surgery left H/O colonoscopy 2020 H/O cystoscopy 2019 H/O knee surgery 2009 Family History (Updated 12/26/23 @ 21:24 by Yamilex Vrema APRN) Father [employer] workers' pneumoconiosis 77 yrs Cancer Lung Mother [...] Lymph # (Auto) 2.8 2.9 (1.00-4.8) x10E3/uL [place] # (Auto) 0.5 0.5 (0.0-0.8) x10E3/uL Eos [...] diabetes mellitus with hyperglycemia: Qualifiers: Diabetes mellitus terminal supervisor insulin use: without terminal supervisor use Qualified Code(s): E11.65 - Type 2 diabetes mellitus with hyperglycemia Code(s): E11.65 - Type 2 diabetes mellitus with hyperglycemia (5) Essential (primary) hypertension: Code(s): I10 - Essential (primary) hypertension (6) Elevated cholesterol: Code(s): E78.00 - Pure hypercholesterolemia, unspecified Plan See above, proceed with early invasive manage Documented By: Otoniel Singleton DO 12/27/23 1520 Signed By: <Electronically signed by Otoniel Singleton DO> 12/27/23 1525 [facility] Work Phone: 1(156) 650-891110-16-2024 [facility] Procedure [facility]-16-2024 History and physical note Author Tr Garcia [facility] December 26, 2023 11:41pmNote Date/TimeOct2023 9:02pmS[place] [address] Hospitalist H&P Signed Patient: Jesse Garrison MR#: [id number] : 1950 Acct:[id number] Age/Sex: 73 / M Adm Date: 4 Loc: Room: [address] [place] [address] Type: ADM IN Attending Dr: Olga Bailon MD Copies to: DO Tr Uriarte DO Marwan Wassouf, MD Paula G Smith, SECURITY RESEARCHER~ HPI DATE OF EXAMINATION: 12/26/23 CHIEF COMPLAINT: chest pain HISTORY OF PRESENT ILLNESS: Mr. Garrison is a 73 year old male with a PMH of HTN, T2DM, HLD that went to his PCP today for intermittent chest pressure and was sent to the nearest emergency room to be evaluated. Patient states forthe last week and a half he has [...] denies alcohol use or illicit drug use. [facility] chart review- CXR showed no acute cardiopulmonary process. EKG- SR with RBBB, mild ST depression in anterolateral leads. CBC and COAGs unremarkable. CMP with a glucose of 179, otherwise unremarkable. Troponin 1744, BNP 511. Pt was medicated with 162 aspirin and a heparin drip was started. Cardiology accepted the patient as consult. Pt was transferred here to [facility] the care of the hospitalist team. Review of Systems Review of Systems Review of systems: A 10 point review of systems was obtained, negative unless noted in the HPI or below. [facility] Medical History (Updated 12/26/23 @ 21:29 [...] History (Updated 12/26/23 @ 21:08 by Sayda Horne RN) H/O wrist surgery left H/O colonoscopy 2020 H/O cystoscopy 2019 H/O knee surgery 2009 Family History (Updated 12/26/23 @ 21:24 by Yamilex Verma APRN) Father [employer] workers' pneumoconiosis 77 yrs Cancer Lung Mother [...] feeling [facility] bad. [facility] because he felt better he decided not to. He woke up this morning and continued to have that type of chest pressure and anginal symptomatology so he called his primary care provider. Right now he does not have any chest pain or pressure symptoms resting in bed. Heparin drip is infusing. Troponin levels at the [facility] were 1744, then 1535, and then here [...] setting as: INPATIENT because of an expectation ofan over 2 midnight stay. Estimated length of stay (# of days): 3 Documented By: Yamilex Verma APRN 12/26/232100 Signed By: <Electronically signed by MARY Verma> 12/26/232138 <Electronically signed by Tr Garcia DO> 12/26/23 2341 [facility] Work Phone: 1(575) 330-414110-15-2024 Evaluation note* Diagnosis Onset Date Resolution Status Admit Date Essential (primary) hypertension acuteOctober 2023 1:06pmType 2 diabetes mellitus with hyperglycemiaacute December 26, 2023 1:06pmAngina of effortdeletedOctober 2023 1:06pm Elevated cholesteroldeletedOctober 2023 1:06pmEssential (primary) hypertensionacuteOctober 2023 8:31pmType 2 diabetes mellitus with hyperglycemiaacuteOctober 2023 8:31pmNSTEMI (non-ST elevated myocardial infarction)inactiveOctober 2023 8:31pmAngina of effortdeletedOctober 2023 8:31pmElevated cholesteroldeletedOctober 2023 8:70bqT5KM (type 2 diabetes mellitus)deletedOctober 2023 8:31pmASHD (arteriosclerotic heart disease)acuteOctober 2023 9:49amBradycardia, drug inducedacuteOctober 2023 9:49amEssential (primary) hypertensionacuteOctober 2023 9:49am ObesityacuteOctober 2023 9:49amType 2 diabetes mellitus with hyperglycemia acuteOctober 2023 9:49amASHD (arteriosclerotic heart disease)acuteDecember 2023 8:24amBradycardia, drug inducedacuteDecember 2023 8:24amDyspnea acuteDecember 2023 8:24amEssential (primary) hypertensionacuteDeceer 2023 8:24amMedicare annual wellness visit, subsequentacutecemb2023 8:24amMucopurulent chronic bronchitisacuteDecember 2023 8:24amObesity acuteDecember 2023 8:24amScreening PSA (prostate specific antigen)acute February 21, 2024 8:24amType 2 diabetes mellitus with diabetic polyneuropathy acuteDecemb2023 8:24amType 2 diabetes mellitus with hyperglycemiaacute February 21, 2024 8:24am [facility] Work Phone: 1(590) 598-302209-04-2024 NotePatient Education Oncology Cancer Screening for Males [...] if anything looks unusual. Males with a rmngzl-trys-mpztbd risk for skin cancer may want to see a bioinformatics support specialist (resident physician in radiology) for an annual body check. Where (more content not included)...[facility]01-24-2024 Evaluation note* Encounter Date Diagnosis Assessment Notes Treatment Notes Treatment Clinical Notes Mar, Hyperlipemia (ICD-10 - E78.5) [facility] Other 12-08-2023 Evaluation note* Encounter Date Diagnosis [...] reviewed and amended by provider signed below. Feb,rimary hypertension (ICD-10 - I10)This patient is instructed to consume a healthy, low-fat, low-salt diet. They are also encouraged to continue exercise to achieve/maintain a normal BMI. Feb,Type 2 diabetes mellitus with hyperglycemia, without long-term current use of insulin (ICD-10 - E11.65)This patient is following a comprehensive diabetic treatment [...] Microalbumin, Dilated eye exam and Foot exam Feb,Hypercholesteremia (ICD-10 - E78.00)Instructed on diet and exercise with continued statin therapy.Discussed the beneficial effects of lowering cholesterol in reducing the risk for cerebrovascular and cardiovascular disease. Feb,alculus of gallbladder without cholecystitis without obstruction (ICD-10 - K80.20)Asymptomatic Feb,denomatous polyp of descending colon (ICD-10 - D12.4)Denies change in bowel habits as well as any melena or hematochezia. He is UTD w/ surveillance scopes. Feb,Transitional cell carcinoma determined by biopsy of bladder (ICD-10 - C67.9)He denies change in urinary habits. He denies hematuria. 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 Offered referral to Podiatry but he declines Feb,igarette nicotine dependence in remission (ICD-10 - F17.211) Continue abstinence Offered LDCT but he declined Feb,Screening PSA (prostate specific antigen) (ICD-10 - Z12.5)Yearly AGUILA and PSA [facility] Other 07-28-2023 Evaluation note* Encounter Date Diagnosis Assessment Notes Treatment Notes Treatment Clinical Notes Sep, Primary hypertension (ICD-10 - I 10) This patient is instructed to consume a healthy, low-fat, low-salt diet. They are also encouraged to continue exercise to achieve/maintain a normal BMI. Sep,Type 2 diabetes mellitus with hyperglycemia, without long-term current use of insulin (ICD-10 - E11.65)This patient is following a comprehensive diabetic treatment [...] Microalbumin, Dilated eye exam and Foot exam Sep,alculus of gallbladder without cholecystitis without obstruction (ICD-10 - K80.20)Asymptomatic, denies post prandial bloating, RUQ pain, nausa or emesis Sep,denomatous polyp of descending colon (ICD-10 - D12.4)Denies change in appetite or bowel habits Denies melena or hematochezia Instructed on high fiber diet and daily ASA Next scope due in 3 years Sep,Transitional cell carcinoma determined by biopsy of bladder (ICD-10 - C67.9)No s/s recurrence. 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 Water picc and forceps utilized to clear EAC. TM's intact and translucent following the procedure Jun,rimary hypertension (ICD-10 - I10)This patient is instructed to consume a healthy, low-fat, low-salt diet. They are also encouraged to continue exercise to achieve/maintain a normal BMI. [facility] Other Evaluation noteNo InformationNort [employer] Other Evaluation note* Diagnosis Onset Date Resolution Status Chronic kidney disease acuteCoughacuteElevated cholesterolacuteEssential (primary) hypertensionacute Mucopurulent chronic bronchitisacuteType 2 diabetes mellitus with diabetic polyneuropathyacuteType 2 diabetes mellitus with hyperglycemiaacuteAngina of effortacuteElevated cholesterolacuteEssential (primary) hypertensionacuteType 2 diabetes mellitus with hyperglycemiaacuteAngina of effortacuteElevated cholesterolacuteEssential (primary) hypertensionacuteNSTEMI (non-ST elevated myocardial infarction)[id number] (type 2 diabetes mellitus)acuteType 2 diabetes mellitus with hyperglycemiaacute [facility] Work Phone: Evaluation note* Diagnosis NSTEMI (non-ST elevated myocardial infarction) (Multi) Acute myocardial infarction, subendocardial infarction, episode of care unspecified History of percutaneous coronary intervention Diabetes mellitus type II, non insulin dependent (Multi) Type II or unspecified type diabetes mellitus without mention of complication, not stated as uncontrolled Body mass index (BMI) 29.0-29.9, adult Cigar smoker documented in this encounter [facility] Work Phone: Evaluation note* Diagnosis ASHD (arteriosclerotic heart disease) Coronary atherosclerosis of unspecified type of vessel, [place] or graft NSTEMI (non-ST elevated myocardial infarction) (Multi) Acute myocardial infarction, subendocardial infarction, episode of care unspecified History of percutaneous coronary intervention Cigar smoker Diabetes mellitus type II, non insulin dependent (Multi) Type II or unspecified type diabetes mellitus without mention of complication, not stated as uncontrolled Hyperlipidemia, unspecified hyperlipidemia type BMI 30.0-30.9,adult documented in this encounter [facility] Work Phone: Evaluation note* Diagnosis Arthritis- Primary Arthropathy, unspecified, site unspecified [facility] Arthritis Arthropathy, unspecified, site unspecified [facility] Narrative - Reported* Type Description Date Medical History Malignant melanoma of cheek Medical HistoryPrimary hypertensionMedical HistoryControlled type 2 diabetes mellitus with hyperglycemia, without long-term current use of insulinMedical HistoryCalculus of gallbladder without cholecystitis without obstructionMedical HistoryAdenomatous polyp of descending colonMedical HistoryCigarette nicotine dependence in remissionMedical HistoryTransitional cell carcinoma determined by biopsy of bladderSurgical Historyknee [id number] Surgical HistoryCYSTOSCOPY WITH BIOPSY OF BLADDER, TRANSURETHRAL RESECTION OF BLADDER TUMOR (TURBT), AND [id number] HistorySEE SURGICAL [facility] Other Hispbpn general Narrative - Reported* Type Description Date Medical History Malignant melanoma of cheek Medical HistoryPrimary hypertensionMedical HistoryControlled type 2 diabetes mellitus with hyperglycemia, without long-term current use of insulinMedical HistoryCalculus of gallbladder without cholecystitis without obstructionMedical HistoryAdenomatous polyp of descending colonMedical HistoryCigarette nicotine dependence in remissionMedical HistoryTransitional cell carcinoma determined by biopsy of bladderSurgical Historyknee [id number] HistoryCOLONOSCOPY, repeat 5 [id number] HistoryCYSTOSCOPY WITH BIOPSY OF BLADDER, TRANSURETHRAL RESECTION OF BLADDER TUMOR (TURBT), AND [id number] Hospitalization HistorySEE SURGICAL [facility] Other Hisdijt general Narrative - Reported* Type Description Date Medical History Malignant melanoma of cheek Medical HistoryPrimary hypertensionMedical HistoryControlled type 2 diabetes mellitus with hyperglycemia, without long-term current use of insulinMedical HistoryCalculus of gallbladder without cholecystitis without obstructionMedical HistoryAdenomatous polyp of descending colonMedical HistoryCigarette nicotine dependence in remissionMedical HistoryTransitional cell carcinoma determined by biopsy of bladderSurgical Historyknee [id number] HistoryCOLONOSCOPY, (repeat 5 years)2021Surgical HistoryCYSTOSCOPY WITH BIOPSY OF BLADDER, TRANSURETHRAL RESECTION OF BLADDER TUMOR (TURBT), AND [id number] Hospitalization HistorySEE SURGICAL HX [facility] Other Hospital Discharge instructions Additional Instructions DISCHARGE [...] doctor or pharmacist, without first calling the data processing supervisor who implanted the stent. If you require [...] weight lifting, stair steppers, etc. until the data processing supervisor approves these activities. Check with the data processing supervisor on your first follow-up visit. CALL YOUR CLOTH BRUSHING AND SUEDING SUPERVISOR: -If bleeding should occur from the catheter insertion site- apply pressure to the site then immediately call us. -Report any fever, redness, drainage, increased swelling, or firmness at the catheter insertion site. Some bruising or slight swelling may be present at the time of discharge. -Should arm or leg become cold, numb, white, or blue, contact the data processing supervisor immediately. -IF you should experience episodes of [...] Cardiopulmonary Rehabilitation program is recommended. The attending data processing supervisor or a nurse clinician should provide you with specific instructions regarding activity, diet, medications, and further follow up for you. Follow the medication instructions provided on your discharge. If the dosages and instructions on this sheet differ from the dosage and instructions on the bottle, follow the instructions on the bottle. [facility] is not responsible for incorrect prescription information provided by the patient during their visit. Do not stop your medications without consulting your health care provider. Please take the list with you to your next doctor's appointment.[facility] Work Phone: Hospital Discharge instructions Additional Instructions Follow up with your primary care doctor Come back to the ED if you develop Shortness of breath, chest pressureGuernsey Memorial Hospital Work Phone: Reason for referral (narrative)No reason for referral information availableGuernsey Memorial Hospital Work Phone: Refgdk for visit Narrative* Diagnostic X-Ray (Routine) - ClosedSpecialtyDiagnoses / ProceduresReferred By ContactReferred To Contact Radiology Diagnoses Arthritis Procedures XR KNEE LEFT AP+LAT 2 VIEWS Chuck Oquendo [address] [place] [address] Phone: tel: fax: [facility]IOLOG[facility] [address] [place] [address] [place] [address] Phone: tel: Referral IDStatusReasonStart DateExpiration DateVisits RequestedVisits [id number]/4/20258/4/202611 [facility] Summary Purpose Family History No Family History Records Found Relationship Condition Age at Onset Recorded Date/T gee father [employer] workers' pneumoconiosis Unknown DeceasedUnknownMalignant neoplasmUnknownmotherDiabetes mellitusUnknownsister DeceasedUnknown Advance Directives No Advanced Directives Records Found Advance Directive Response Recorded Date/ Time Advance Directives No December 18, 2018 7:37am Advance Directive Response Recorded Date/ Time Advance Directives No December 18, 2018 6:37am Chief Complaint and Reason for Visit Chief Complaint 4 month follow up chest pressure, SOB nostem enstemiReason for VisitChronic kidney disease Cough Elevated cholesterol Essential (primary) hypertension Mucopurulent [...] 1:06pm Type 2 diabetes mellitus with hyperglyce [facility] December 26, 2023 1:06pm Angina of effort [...] 2023 8:31pm ASHD (arteriosclerotic heart disease) Oc tober 2023 9:49am Bradycardia, drug induced January 05, 2024 9:49am Essential (primary) hypertension January 05, 2024 9:49am Obesity January 05, 2024 9 :49am Type 2 diabetes mellitus with hyperglyce carmelina January 05, 2024 9:49am ASHD (arteriosclerotic heart disease) De cember 2023 8:24am Bradycardia, drug induced February 21, 2024 8:24am Dyspnea February 21, 2024 8:24am Essential (primary) hypertension [facility] r 2023 8:24am Medicare annual wellness visit, subseque nt February 21, 2024 8:24am Mucopurulent chronic bronchitis February 21, 2024 8:24am Obesity February 21, 2024 8:24am Screening PSA (prostate specific antigen ) February 21, 2024 8:24am Type 2 diabetes mellitus with diabetic p olyneuropathy February 21, 2024 8:24am Type 2 diabetes mellitus with hyperglyce carmelina February 21, 2024 8:24am Chief Complaint Admit Date 3 month-HIGH RISK/Ear Cleaning August 8:48am Sob/dizzy November 29, 2024 8:13am Reason for Visit Admit Date ASHD (arteriosclerotic heart disease) Ju ne 2024 8:48am Bradycardia, drug induced September 03 8:48am Essential (primary) hypertension September 032024 8:48am Mucopurulent chronic bronchitis August 8:48am Nicotine addiction September 03, 2024 8:48 am Obesity September 03, 2024 8:48 am Type 2 diabetes mellitus with hyperglyce carmelina September 03, 2024 8:48am Impacted cerumen of both ears September 03, 2024 8:48am Acute electrocardiogram changes [facility] r 2024 8:13am Anemia November 29, 2024 8:13am Essential (primary) hypertension Sept[place] er 2024 8:13am GI bleed November 29, 2024 8:13am jail (current) use of antithromboti cs/antiplatelets November 29, 2024 8:13am Melena November 29, 2024 8:13am Type 2 diabetes mellitus with diabetic p olyneuropathy November 29, 2024 8:13am Chief Complaint Admit Date Sob/dizzy November 29, 2024 8:13am Amb Documentation December 04, 2024 9:06am chest pressure, sob, black stools [facility] 2024 8:28pm Reason for Visit Admit Date Essential (primary) hypertension [facility] 2024 8:13am 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 (current) use of antithromboti cs/antiplatelets November 29, 2024 8:13am Melena November 29, 2024 8:13am Type 2 diabetes mellitus with diabetic p olyneuropathy November 29, 2024 8:13am Acute electrocardiogram changes [facility] 2024 8:13am Anemia November 29, 2024 8:13am Dyslipidemia November 29, 2024 8:13am GI bleed November 29, 2024 8:13am Stented coronary artery November 29, 2024 8:13am Anemia December 05, 2024 8:28pm Dyspnea December 05, 2024 8:28pm Gastroduodenitis with hemorrhage [facility] 2024 8:28pm GI (gastrointestinal bleed) December 052024 8:28pm T2DM (type 2 diabetes mellitus) [facility] 2024 8:28pm Reason for Visit Admit Date Essential (primary) hypertension [facility] 2024 8:13am 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 (current) use of antithromboti cs/antiplatelets November 29, 2024 8:13am Melena November 29, 2024 8:13am Type 2 diabetes mellitus with diabetic p olyneuropathy November 29, 2024 8:13am Acute electrocardiogram changes [facility] 2024 8:13am Anemia November 29, 2024 8:13am Dyslipidemia November 29, 2024 8:13am GI bleed November 29, 2024 8:13am Stented coronary artery November 29, 2024 8:13am Acute blood loss anemia December 05, 2024 8:28pm Anemia December 05, 2024 8:28pm ASHD (arteriosclerotic heart disease) Se ptember 2024 8:28pm Chest pressure December 05, 2024 8:28pm Dyspnea December 05, 2024 8:28pm Gastroduodenitis with hemorrhage [facility] er 2024 8:28pm GI (gastrointestinal bleed) December 052024 8:28pm T2DM (type 2 diabetes mellitus) [facility] 2024 8:28pm Type 2 diabetes mellitus with diabetic p olyneuropathy December 05, 2024 8:28pm Reason for Visit Admit Date Essential (primary) hypertension [facility] er 2024 8:13am 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 (current) use of antithromboti cs/antiplatelets November 29, 2024 8:13am Type 2 diabetes mellitus with diabetic p olyneuropathy November 29, 2024 8:13am Acute electrocardiogram changes [facility] 2024 8:13am Anemia November 29, 2024 8:13am Dyslipidemia November 29, 2024 8:13am GI bleed November 29, 2024 8:13am Melena November 29, 2024 8:13am Stented coronary artery November 29, 2024 8:13am Acute blood loss anemia December 05, 2024 8:28pm ASHD (arteriosclerotic heart disease) Se ptember 2024 8:28pm Dyspnea December 05, 2024 8:28pm Gastroduodenitis with hemorrhage [facility] 2024 8:28pm Type 2 diabetes mellitus with diabetic p olyneuropathy December 05, 2024 8:28pm Anemia December 05, 2024 8:28pm Chest pressure December 05, 2024 8:28pm GI (gastrointestinal bleed) December 052024 8:28pm T2DM (type 2 diabetes mellitus) [facility] 2024 8:28pm Acute blood loss anemia December 10, 2024 1:55pm Adverse reaction to antiplatelet agent S eptember 2024 1:55pm ASHD (arteriosclerotic heart disease) Se ptember 2024 1:55pm Essential (primary) hypertension [facility] er 2024 1:55pm Gastroduodenitis with hemorrhage [facility] er 2024 1:55pm Mucopurulent chronic bronchitis [facility] 2024 1:55pm Nicotine addiction December 10, 2024 1:55pm Obesity December 10, 2024 1:55pm Type 2 diabetes mellitus with diabetic p olyneuropathy December 10, 2024 1:55pm Type 2 diabetes mellitus with hyperglyce carmelina December 10, 2024 1:55pm Chief Complaint Admit Date Sob/dizzy November 29, 2024 8:13am Reason for Visit Admit Date Acute electrocardiogram changes [facility] 2024 8:13am Anemia November 29, 2024 8:13am Dyslipidemia November 29, 2024 8:13am Essential (primary) hypertension [facility] er 2024 8:13am GI bleed November 29, 2024 8:13am jail (current) use of antithromboti cs/antiplatelets November 29, 2024 8:13am Melena November 29, 2024 8:13am Stented coronary artery November 29, 2024 8:13am Type 2 diabetes mellitus with diabetic p olyneuropathy November 29, 2024 8:13am Chief Complaint Admit Date Sob/dizzy November 29, 2024 8:13am Amb Documentation December 04, 2024 9:06am chest pressure, sob, black stools Sept sangeeta 2024 8:28pm 3 month-HIGH RISK December 24, 2024 8 :19am Reason for Visit Admit Date Essential (primary) hypertension [facility] 2024 8:13am 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 (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) use of antithromboti cs/antiplatelets November 29, 2024 8:13am Melena November 29, 2024 8:13am Type 2 diabetes mellitus with diabetic p olyneuropathy November 29, 2024 8:13am Acute electrocardiogram changes [facility] 2024 8:13am Anemia November 29, 2024 8:13am Dyslipidemia November 29, 2024 8:13am GI bleed November 29, 2024 8:13am Stented coronary artery November 29, 2024 8:13am Acute blood loss anemia December 05, 2024 8:28pm ASHD (arteriosclerotic heart disease) Se ptember 2024 8:28pm Gastroduodenitis with hemorrhage [facility] er 2024 8:28pm Chest pressure December 05, [...] diabetic p olyneuropathy December 24, 2024 8:19am Additional Source Comments (unrecognized sect ion and content) No Status Records FoundNo Status Records FoundNo Status Records FoundNo Status Records FoundNo Status Records FoundNo Status Records FoundNo Status Records Found INFORMATION SOURCE (unrecogn ized section and content) DATE CREATED AUTHOR 03/09/2022 [facility] DATE CREATED AUTHOR AUTHOR'S ORGANIZ ATION 09/23/2024 [facility] DATE CREATED AUTHOR AUTHOR'S ORGANIZ ATION 10/18/2024 [facility] DATE CREATED AUTHOR AUTHOR'S ORGANIZ ATION 11/14/2024 [facility] DATE CREATED AUTHOR AUTHOR'S ORGANIZ ATION 11/24/2024 [facility] DATE CREATED AUTHOR AUTHOR'S ORGANIZ ATION 12/06/2024 [facility] DATE CREATED AUTHOR AUTHOR'S ORGANIZ ATION 01/05/2025 [facility] REASON FOR VISIT (unrecogniz ed section and content) OugcoaTmraezbeEtkdut-aclqvZulzhrRffoohofCqevvk-vl4esclk follow up for nstemi SpecialtyDiagnoses / ProceduresReferred By ContactReferred To ContactCardiology Diagnoses NSTEMI (non-ST elevated myocardial infarction) (Multi) Procedures Follow Up In Cardiology Ar Singleton, [address], [place] [address] Phone: tel: fax: Ar Singleton, [address] [facility], [address] [place] [id number] Phone: tel: fax: Referral IDStatusReasonStart DateExpiration DateVisits RequestedVisits [id number]/30/202410/30/202511 Care Teams (unrecognized sec tion and content) Team Status: Active Member Role Status Dates Antoni Monet DO Primary Care Provider Active Team Status: Active Member Role Status Dates Antoni Monet DO Primary Care Provider Active Start: November 29, 2024 Carri Shoemaker MDEmergency ProviderActiveStart: November 29, 2024 Edson Poon ProviderActiveStart: November 29, 2024 Mili Poon ProviderActiveStart: November 29, 2024 Mane Sommer MDAttending ProviderActiveStart: November 29, 2024 Mane Sommer MDOther ProviderActiveStart: November 29, 2024 Adelso Brito APRNOt ProviderActiveStart: November 29, 2024 Sol Suarez MDOther ProviderActiveStart: November 29, 2024 Christen Dumont , DOOther ProviderActiveStart: November 29, 2024 Moncho Stein , APRNOther ProviderActiveStart: November 29, 2024 Jagruti Oro RNOther ProviderActiveStart: November 29, 2024 Otoniel Singleton , DOOther ProviderActiveStart: November 29, 2024 Samy Rust MDOther ProviderActiveStart: November 29, 2024 Minnie Raygoza MDOther ProviderActiveStart: November 29, 2024 Yissel Verma , APRNOther ProviderActiveStart: November 29, 2024 Janneth Gordon MDOther ProviderActiveStart: November 29, 2024 Brittney Murray , RADIATION PROTECTION TECHNICIAN-BCOther ProviderActiveStart: November 29, 2024 Team Status: Active Member Role Status Dates Antoni Monet DO Primary Care Provider Active Start: December 04, 2024 Christen Dunbar , CMAAttending ProviderActiveStart: December 04, 2024 Team Status: Active Member Role Status Savana Monet DO Primary Care Provider Active Start: December 05, 2024 Tyler Kiran ProviderActiveStart: December 05, 2024 Elvis Wilkinson , DOAdmit ProviderActiveStart: December 05, 2024 Elvis Wilkinson , DOAttending ProviderActiveStart: December 05, 2024 Team Status: Inactive Member Role Status Savana Monet DO Primary Care Provide r, Attending Provider Active Start: October 18, 2023 End: October 18, 2023 Team Status: Active Member Role Status Savana Monet DO Primary Care Provide r, Attending Provider Active Start: October 19, 2023 Team Status: Active Member Role Status Savana Monet DO Primary Care Provider Active Start: November 08, 2023 Jossie Bryant NP-CAttending ProviderActiveStart: November 08, 2023 Team Status: Inactive Member Role Status Savana Monet DO Primary Care Provide r, Attending Provider Active Start: December 26, 2023 End: December 26, 2023 Team Status: Inactive Member Role Status Savana Monet DO Primary Care Provider Active Start: December 26, 2023 End: December 28, 2023Sidneycain Garcia DOAdmit ProviderActiveStart: December 26, 2023 End: December 28, 2023Latricerajivalistair Uvaldo MDAttending ProviderActiveStart: December 26, 2023 End: December 28, 2023Team MemberRelationshipSpecialtyStart DateEnd Date Antoni Monet DO [address] [place] [address] PCP - GeneralInternal Lkeeuvtj20/30/24 Christen Brandt RN Care ManagerCase Xcrdhsgyis57/17/24 Ar Singleton, [address] [facility] [address], [facility] [address] [place] [address] Consulting HlkqmccuqWwozwvucej49/30/24 Team Status: Active Member Role Status Dates Antoni Monet DO Primary Care Provide r, Attending Provider Active Start: December 26, 2023 Team Status: Active Member Role Status Dates Antoni Monet DO Primary Care Provider Active Start: December 29, 2023 Christen Dunbar CMAAttjohn ProviderActiveStart: December 29, 2023 Team Status: Active Member Role Status Dates Antoni Monet DO Primary Care Provide r, Attending Provider Active Start: January 04, 2024 Team Status: Inactive Member Role Status Dates Antoni Monet DO Primary Care Provide r, Attending Provider Active Start: January 05, 2024 End: January 05, 2024 Team Status: Inactive Member Role Status Dates Antoni Monet DO Primary Care Provide r, Attending Provider Active Start: February 21, 2024 End: February 21, 2024 Team Status: Inactive Member Role Status Dates Antoni Monet DO Primary Care Provide r, Attending Provider Active Start: March 21, 2024 End: March 21, 2024Team MemberRelationshipSpecialtyStart DateEnd Date Antoni Monet, [address] [place] [address] PCP - GeneralInternal Xjzahfib83/30/24 Ar Singleton, [address] [facility] [address], [address] [place] [address] Consulting QfobmntzjTsejazugkm02/30/24 Team Status: Inactive Member Role Status Dates Antoni Monet DO Primary Care Provider Active Start: September 03, 2024 End: September 03enpoolrosa m Chiki , DOAttending ProviderActiveStart: September 03, 2024 End: September 03, 2024 Team Status: Inactive Member Role Status Dates Antoni Monet DO Primary Care Provider Active Start: December 05, 2024 End: December 07Tyler Starr ProviderActiveStart: December 05, 2024 End: December 07, 2024Elvis Wilkinson DOAdmit ProviderActiveStart: December 05, 2024 End: December 07, 2024Michelle Aguayo MDAttending ProviderActiveStart: December 05, 2024 End: December 07, 2024 Team Status: Active Member Role Status Dates Antoni Monet DO Primary Care Provider Active Start: December 09, 2024 Antoni Monet DOAttending ProviderActiveStart: December 09, 2024 Team Status: Inactive Member Role Status Dates Antoni Monet DO Primary Care Provider Active Start: December 10, 2024 End: December 10enpoolrosa m Chiki , DOAttending ProviderActiveStart: December 10, 2024 End: December 10, 2024 Team Status: Inactive Member Role Status Dates Antoni Monet DO Primary Care Provider Active Start: December 24, 2024 End: December 24enclemente Monet , DOAttending ProviderActiveStart: December 24, 2024 End: December 24, 2024 Goals (unrecognized section and content) Type Treatment Intervention Code Status: Full Code Goals may be documented in an alternate section FOR RECORDS PERTAINING TO PATIENTS WHO ARE [...] BE BASED ON THE PRIMARY CLINICAL RECORDS. [facility]. provides no warranty or guarantee of the accuracy or completeness of information in this document.
--- OUTSIDE RECORDS SUMMARY | 2025-01-07 07:15 | XMS_ITS | Clinical Summary ---
Author Organization [facility] Address [address] 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 As neededActive APPLE CIDER VINEGAR ORAL Take 1 tablet by mouth 2 times a day.Active ascorbic acid (Vitamin C) 500 mg tablet Take 1 tablet (500 mg) by mouth once daily.Active multivitamin tablet Take 1 tablet by mouth once daily.Active cholecalciferol (Vitamin D3) 25 mcg (1,000 units) tablet Take 1 tablet (25 mcg) by mouth once daily.Active cyanocobalamin (Vitamin B-12) 1,000 mcg tablet Take 1 tablet (1,000 mcg) by mouth once daily.Active glimepiride (Amaryl) 1 mg tablet Take 1 tablet (1 mg) by mouth once daily in the morning. Take before meals. Active lisinopril 20 mg tablet Take 1 tablet (20 mg) by mouth once daily.Active metFORMIN (Glucophage) 1,000 mg tablet Take 1 tablet (1,000 mg) by mouth 2 times daily (morning and late afternoon). Active empagliflozin (Jardiance) 10 mg tablet Indications:ASHD (arteriosclerotic heart disease),NSTEMI (non-ST elevated myocardial infarction) (Multi),History of percutaneous coronary intervention, Diabetes mellitus type II, non insulin dependent (Multi)Take 1 tablet (10 mg) by mouth once daily. 90 tablet 504/ctive atorvastatin (Lipitor) 80 mg tablet Indications:History of percutaneous coronary interventionTake 1 tablet (80 mg) by mouth once daily. 90 tablet 507/ctive clopidogrel (Plavix) 75 mg tablet Take 1 tablet (75 mg) by mouth once daily.Active Active Problems ProblemNoted DateDiagnosed DateBMI 30.0-30.9,adult07/10/2024SHD (arteriosclerotic heart disease)07/10/20240847Wjioqaknfjvbyf04/30/2025igar smoker 01/10/2024NSTEMI (non-ST elevated myocardial infarction)01/10/2024History of percutaneous coronary eteyolzdaqys60/30/2024iabetes mellitus type II, non insulin lzvtejmzu63/30/2024 Resolved Problems ProblemNoted DateDiagnosed DateResolved DateBody mass index (BMI) 29.0-29.9, adult/ Encounters DateTypeDepartmentCare OpnpXrkhsbtpssp39/26/2025Scanned Document [facility] [address] [place] [phone] Scanning, Generic Provider 12/05/2024Scanned Document [facility] [address] [place] [address] Scanning, Generic Provider 12/05/2024Telephone [address] [place] [phone] Ariella Webster LPN recent hospital Skebdzkmk94/23/2025Scanned Document [facility] [address] [place] [address] Scanning, Generic Provider 11/29/2024Scanned Document [facility] [address] [place] [phone] Scanning, Generic Provider 11/18/2024Telephone [address] [place] [address] Radha Henry LPN med holdfrom Last 3 Months Family History Medical HistoryRelationNameCommentsNo Known ProblemsBrotherblack lungsFather Colon cancerMotherDiabetes type IMotherNo Known ProblemsSisterRelationNameStatus CommentsBrotherFatherMotherSister Social History Tobacco UseTypesPacks/DayYears UsedDateSmoking Tobacco: Every DayCigarsSmokeless Tobacco: Never Tobacco Cessation:Ready to Q uit: Yes; Counseling Given: Yes Alcohol UseStandard Drinks/WeekCommentsNever0 (1 standard drink = 0.6 oz pure alcohol)Sex and Gender InformationValueDate RecordedSex Assigned at BirthNot on fileLegal SodLmkb96/15/2024 3:49 PM EDTGender IdentityNot on fileSexual OrientationNot on file Last Filed Vital Signs Vital SignReadingTime TakenCommentsBlood Rlfzjfbd201/6004 9:51 AM EDT Bnmvw068807/10/2024 9:51 AM EDTTemperature--Respiratory Rate--Oxygen Saturation-- Inhaled Oxygen Concentration--Ihyuro15.1 kg (207 lb 6.4 oz)07/10/2024 9:51 AM OKENtthls718.3 cm (5' 9 )07/10/2024 9:51 AM EDTBody Mass Index30.6304 9:51 AM EDT Plan of Treatment DateTypeDepartmentCare Team (Latest Contact Info)Bqmpmtwymnu36/05/2025 10:10 AM ESTOffice Visit [address] [place] [phone] Ar Singleton DO [address] [facility] [address], [address] [place] [address] Health MaintenanceDue DateLast DoneCommentsCT Dguzalqhpabn1950Colonoscopy 1950olorectal Cancer Sghvqxhyh1951iabetes: Hemoglobin A1C 1951iabetes: Urine Protein Lnpftxycv1951FIT-DNA (Cologuard) 1950FIT1Lipid Panel4608Vxpblolrjhtds1951Yearly Adult Uwrfxduc1951MMR Vaccines (1 of 1 - Standard series)2Diabetes: Retinopathy Uxefbhezo06/05/1961Hepatitis C Jnitpskya60/05/1969Pneumococcal Vaccine (1 of 2 - PCV)1970DTaP/Tdap/Td Vaccines (1 - Tdap)1973Zoster Vaccines (1 of 2)2001RSV High Risk: (Elderly (60+) or Population) (1 - Risk 60-74 years 1-dose series)2011bdominal Aortic Aneurysm (AAA) Wrbnnwgxm64/05/2016Influenza Vaccine (#1)5COVID-19 Vaccine ( - season)2024HIB VaccinesAged OutNo longer eligible based on patient's age to complete this topicHPV VaccinesAged OutNo longer eligible based on patient's age to complete this topicHepatitis A VaccinesAged OutNo longer eligible based on patient's age to complete this topicHepatitis B VaccinesAged OutNo longer eligible based on patient's age to complete this topicIPV VaccinesAged OutNo longer eligible based on patient's age to complete this topicMeningococcal VaccineAged OutNo longer eligible based on patient's age to complete this topic Rotavirus VaccinesAged OutNo longer eligible based on patient's age to complete this topic Procedures Procedure NamePriorityDate/TimeAssociated DiagnosisCommentsOUTSIDE IMAGING SCAN 12/05/2024 OUTSIDE IMAGING SCAN11/29/2024 from Last 3 Months Results * OUTSIDE IMAGING SCAN (12/05/2024) Only the most recent of2 resultswithin the time period is included. Anatomical RegionLateralityModalityOther Narrative 12/05/2024 Ordered by an unspecified provider. Authorizing ProviderResult TypeResult StatusGeneric Provider ScanningOUTSIDE SCANFinal Result from Last 3 Months Insurance Care Teams Team MemberRelationshipSpecialtyStart DateEnd Date Antoni [place] [address] PCP - GeneralInternal Fdmbmyww13/30/24 Ar Singleton DO [address] [facility] 2, [facility] [address] [place] [address] Consulting VvrjbfvonQezxklxish07/30/24
[2025-01-07 07:37] LABS: Hematocrit 44.0 % (42.0-54.0); Hemoglobin 13.5 g/dL (14.0-18.0); Immature Granulocytes Abs Auto 0.01 10^3/uL (0.00-0.03); Immature Granulocytes Pct Auto 0.2 % (0.0-0.5); Lymphocytes Absolute Auto 1.5 10^3/uL (1.2-3.8); Mean Corpuscular HGB Conc 30.7 g/dL (29.9-35.2); Mean Corpuscular Hemoglobin 28.8 pg (25.9-34.0); Mean Corpuscular Volume 94.0 fL (80.0-94.0); Platelet Count 320 10^3/uL (150-450); Red Blood Count 4.68 10^6/uL (4.70-6.10); White Blood Count 6.1 10^3/uL (4.0-11.0)
[2025-01-07 12:03] LABS: Iron 43.0 ug/dL (65.0-175.0); Percent Iron Saturation 16.5 %; Total Iron Binding Capacity 260.0 ug/dL (250.0-450.0)
[2025-01-07 13:15] LABS: Ferritin 157.0 ng/mL (26.0-388.0)
== END 2025-01-07 07:11 | disposition home or self-care (01) ==
LOC: LAB 07:12
PROVIDERS: PCP Internal Medicine; Visit Provider Internal Medicine
DX: D62 Acute posthemorrhagic anemia (principal)
CPT/HCPCS: 36415; 82728; 83540; 83550; 85025